=== PATIENT | female | born 1935 | race Caucasian/White ===

== ENCOUNTER 2018-04-21 16:06 | Outpatient (REF) | payer MEDICARE, OTHER, SELFPAY ==
--- NOTE | 2018-04-21 09:30 | SKI_PTH ---
PATIENT: Jerri Velasco LOC: [facility] U#:[id number] AGE/SX: 83/F ROOM: RE04/21/[address]: COLETTE Minaya : 1935 BED: DIS: 04/21/2018 SPEC #: [id number] RECD: 04/21/18 16:46 STATUS: RAÚL HERNÁNDZE #: [id number] CASPER: 04/21/18 09:[address]: Farhan Peck DEPT: Surgical Specimen RECD BY: Laura Hoffman ENTERED: 04/21/18 16:47 SP TYPE: BATOOL RODRIGUEZ DR: Uyen Gerard Tissues: 1 - SKIN BIOPSY(SHAVE/PUNCH) 2 - SKIN BIOPSY(SHAVE/PUNCH) Procedures: SKIN LEVEL 4 Comments: [id number]
== END 2018-04-21 16:07 ==
LOC: LBN 16:06
PROVIDERS: PCP Family Medicine; Visit Provider Physician Assistant
DX: L82.1 Other seborrheic keratosis (principal)
CPT/HCPCS: 88305

== ENCOUNTER 2019-01-12 16:17 | Outpatient (REF) | payer MEDICARE, OTHER, SELFPAY ==
[2019-01-12 20:23] LABS: HCT 41.8 % (36.0-46.0); HGB 13.5 g/dL (12.0-15.5); Mean Corp. HGB Concentration 32.3 g/dL (32.0-36.0); Mean Corpuscular Hemoglobin 29.1 pg (27.0-33.0); Mean Corpuscular Volume 90.1 fL (80-95); Platelet Count 289 x1000/uL (130-400); RBC 4.64 m/cumm (4.00-5.20); RBC Distribution Width 14.1 % (11.7-14.6); White Blood Cell Count 7.98 k/cumm (4.4-10.8)
[2019-01-12 20:56] LABS: Ferritin 210 ng/mL (8-388); TSH (W/Ref FT4) 2.23 uIU/mL (0.358-3.74)
== END 2019-01-12 16:37 ==
LOC: NCHCN 16:17
PROVIDERS: PCP Family Medicine; Visit Provider Family Medicine
DX: L65.9 Nonscarring hair loss, unspecified (principal); I48.91 Unspecified atrial fibrillation
CPT/HCPCS: 85027; 82728; 84443

== ENCOUNTER 2019-02-15 07:34 | Outpatient (CLI) | payer MEDICARE, OTHER, SELFPAY ==
[2019-02-15 08:35] LABS: Abs Immature Grans 0.03 k/cumm (0.0-0.09); Absolute Basophil Count 0.07 k/cumm (0.0-0.2); Absolute Eosinophil Count 0.21 k/cumm (0.0-0.7); Absolute Monocyte Count 0.89 k/cumm (0.11-0.7); Absolute Neutrophil Count 5.15 k/cumm (1.2-6.7); Basophils % 0.8; Eosinophils % 2.5; HCT 41.9 % (36.0-46.0); HGB 13.5 g/dL (12.0-15.5); Immature Grans % 0.4; Mean Corp. HGB Concentration 32.2 g/dL (32.0-36.0); Mean Corpuscular Hemoglobin 29.3 pg (27.0-33.0); Mean Corpuscular Volume 90.9 fL (80-95); Mean Platelet Volume 9.8 fL (8.0-11.0); Monocytes % 10.8; Neutrophils % 62.5; Platelet Count 255 x1000/uL (130-400); RBC 4.61 m/cumm (4.00-5.20); RBC Distribution Width 14.3 % (11.7-14.6); White Blood Cell Count 8.25 k/cumm (4.4-10.8)
[2019-02-15 09:20] LABS: ALT 37 U/L (12-78); AST 37 U/L (15-37); Albumin 3.5 g/dL (3.4-5.0); Alkaline Phosphatase 89 U/L (46-116); Anion Gap 4.9 mmol/L (3-11); BUN 26 mg/dL (7-18); Bilirubin, Total 0.5 mg/dL (0.2-1.0); CO2 33.1 mmol/L (21.0-32.0); CREATININE 1.07 mg/dL (0.55-1.02); Calcium 8.9 mg/dL (8.5-10.1); Chloride 99 mmol/L (98-107); Estimated GFR 49.09 (mL/min/1.73m2); Glucose 90 mg/dL (70-100); Potassium 4.5 mmol/L (3.5-5.1); Sodium 137 mmol/L (136-145); Total Protein 7.8 g/dL (6.4-8.2)
== END 2019-02-15 07:54 ==
PROVIDERS: PCP Family Medicine; Visit Provider Internal Medicine Hematology & Oncology
DX: C64.9 Malignant neoplasm of unspecified kidney, except renal pelvis (principal)
CPT/HCPCS: 36415; 80053; 85025

== ENCOUNTER 2019-03-25 01:18 | Outpatient (CLI) | payer MEDICARE, OTHER, SELFPAY ==
--- NOTE | 2019-03-25 08:07 | DI.RAD_ITS ---
SYMPTOM/DIAGNOSIS: LT ANKLE JOINT PAIN, M25.572, S/P FX AND REPAIR WITH PLATE IN 2013 LEFT ANKLE: Three views. Comparison 07/2014. There are again seen side plates and screws transfixing the healed fractures of the distal left tibia and fibula. The orthopaedic hardware shows no evidence of failure. The bones are intact and normally mineralized. There is a small enthesophyte at the Achilles insertion on to the calcaneus. The soft tissues area otherwise unremarkable. IMPRESSION: No acute abnormality.
== END 2019-03-25 01:38 ==
PROVIDERS: PCP Family Medicine; Visit Provider Family Medicine
DX: M25.572 Pain in left ankle and joints of left foot (principal); Z87.81 Personal history of (healed) traumatic fracture
CPT/HCPCS: 73610

== ENCOUNTER 2019-04-01 04:40 | Outpatient (CLI) | payer MEDICARE, OTHER, SELFPAY ==
[2019-04-01] MEDS: Inhaler, Assist Device 1 EACH MC (10:44)
--- NOTE | 2019-04-01 11:30 | PFT_ITS ---
PULMONARY FUNCTION TEST REPORT DATE OF SERVICE: April 01, 2019 REQUESTING PROVIDER: Uyen Gerard M.D. Spirometry shows mild obstructive airways disease with no significant bronchodilator response. Lung volumes show no evidence of restriction. Diffusion capacity mildly reduced, which is normal when corrected to alveolar volume. Airways resistance normal. IMPRESSION: Mild obstructive airways disease with no significant bronchodilator response. This is associated with mild diffusion defect. Clinical correlation recommended. When this study was compared to previous one from 06/12/15, the patient has a 230 cc's decline in FVC; FEV1 had a 110 cc's decline. Clinical correlation recommended. AMY/magdy D/
== END 2019-04-01 05:00 ==
PROVIDERS: PCP Family Medicine; Visit Provider Family Medicine
DX: J98.8 Other specified respiratory disorders (principal)
CPT/HCPCS: 94060; 94150; 94726; 94729

== ENCOUNTER 2020-02-09 02:46 | Outpatient (CLI) | payer MEDICARE, OTHER, SELFPAY ==
--- NOTE | 2020-02-09 | DI.MRI_ITS ---
EXAM: MR LUMBAR SPINE WO CLINICAL HISTORY: LT SCIATICA, M54.32, LT-SIDED BURNING PAIN LATERAL LEG, HARDWARE IN ANKLE. TECHNIQUE: Multiplanar multisequence MRI was performed. COMPARISON: No exams were available for comparison FINDINGS: MR examination lumbosacral spine was performed according to the usual protocol. No significant bony signal seen. There are moderate hypertrophic degenerative facet changes at L4-5 L5-S1. No bony central canal spinal stenosis. No significant neural foraminal stenosis. The conus medullar is appears intact. There are mild disc bulges at L2-3 and L3-4 with no disc herniation. At L4-5 there is a left lateral disc herniation which may impinge the left L5 nerve root. No other d isc herniation identified. L5-S1 disc shows mild bulge. IMPRESSION: Left lateral disc herniation at L4-5 level which appears to impinge the left L5 nerve root, please co rrelate with neurologic examination. 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 No other significant findings DATA REPOSITORY:
== END 2020-02-09 03:06 ==
PROVIDERS: PCP Family Medicine; Visit Provider Family Medicine
DX: M54.32 Sciatica, left side (principal); M79.605 Pain in left leg; M51.16 Intervertebral disc disorders with radiculopathy, lumbar region; M47.27 Other spondylosis with radiculopathy, lumbosacral region
CPT/HCPCS: 72148

== ENCOUNTER 2020-02-28 11:09 | Outpatient (CLI) | payer MEDICARE, OTHER, SELFPAY ==
--- NOTE | 2020-02-28 10:45 | DI.RAD_ITS ---
EXAM: XR ANKLE LT COMPLETE CLINICAL HISTORY: pain TECHNIQUE: COMPARISON: CR XR ANKLE LT COMPLETE from 03/25/2019 FINDINGS: Three views were obtained and show plate and screw fixation medial lateral malleoli, no gross interva l change in alignment in comparison prior films March 25, 2019. The ankle mortise appears well mainta ined. IMPRESSION:
== END 2020-02-28 11:29 ==
PROVIDERS: PCP Family Medicine; Referring Provider Family Medicine; Visit Provider Orthopaedic Surgery
DX: M25.572 Pain in left ankle and joints of left foot (principal); Z87.81 Personal history of (healed) traumatic fracture; J44.9 Chronic obstructive pulmonary disease, unspecified; I10 Essential (primary) hypertension
CPT/HCPCS: 99201; 99202; 73610

== ENCOUNTER 2020-05-03 11:27 | Outpatient (CLI) | payer MEDICARE, OTHER, SELFPAY ==
--- NOTE | 2020-05-03 06:00 | DI.RAD_ITS ---
EXAM: XR PAIN CLINIC LUMBAR SP 2V CLINICAL HISTORY: Dx: Lumbar Radiculopathy TECHNIQUE: 2D and realtime digital imaging was performed. Fluoroscopy was provided in the OR COMPARISON: No exams were available for comparison FINDINGS: C-arm fluoroscopy was utilized by Dr. Quesada during reported transforaminal epidural steroid injection. Hard copy shows injection adjacent to the neural foramen at what appears to be the L5-S1. Fluoro time, 35 seconds IMPRESSION: RADIATION DOSE DELIVERED: Total DLP
[2020-05-03 11:56] VITALS: BP 149/83; PULSE 65; RESP 16; TEMP 36.5; O2SAT 98
[2020-05-03] MEDS: Dexamethasone Sod. Phos./Pres-Free 10 MG/ML VIAL IJ (12:35)
[2020-05-03] MEDS: Omnipaque 240 MG/ML 50 ML BTL IJ (12:35)
[2020-05-03 12:51] VITALS: BP 144/70; PULSE 64; RESP 19; O2SAT 99
--- NOTE | 2020-05-24 08:48 | PDOC.PAIN ---
Pain Clinic Procedure Note Procedure Note Procedure Note: LUMBAR / SACRAL TRANSFORAMINAL INJECTION DATE OF PROCEDURE: 05/03/2020 TALITA ALCOCER has been referred to the [facility] for a transforaminal nerve root block and steroid injection. COMMENTS: Patient previously seen by Ms. Ortiz in our clinic. I did review this note and the pateint's most recent lumbar spine MRI. DX: Lumbosacral radiculopathy Patient was interviewed and the medical record reviewed. There were no medical, pharmacologic, radiographic or other structural contraindications to attempting fluoroscopically guided transforaminal nerve root block and epidural steroid injection. Risks and expected side effects as well as potential benefit of the procedure were reviewed and voiced concerns addressed. The printed consent form was signed and witnessed. Standard time-out procedure was performed. Patient was placed in the prone position on the fluoroscopy table and automated blood pressure cuff and pulse oximeter applied. Fluoroscopy was utilized to identify the left L5 neural foramen between L5 and S1. A skin candie was made for the needle insertion site. A Chlorhexadine prep was carried out, and sterile drapes were applied. Local anesthesia was achieved in the skin and subcutaneous tissues. A 22 gauge curved tip spinal needle was then inserted, advanced with fluoroscopic guidance into the neural foramen, confirmed on the lateral view. After negative aspiration, 2 ml of Omnipaque 240 was injected confirming position in A/P and lateral views. This showed a good spread of dye transforaminally into the epidural space. There was no vascular update with contrast injection under continuous fluoroscopy and digital substraction. 15 mg of Dexamethasone was injected, followed by 0.5 ml of 1% Xylocaine flush for the nerve root block, as well. There was no unusual discomfort expressed.The needle was withdrawn. The patient tolerated the procedure well. A Band-Aid was applied. Vital signs were stable throughout the procedure and were as recorded in nursing records. If given, dosages of intravenous drugs for anxiolysis and analgesia were documented in nursing records. Follow up plans and appointments were discussed. Post procedure instruction was given as documented in nursing records and patient was discharged in the care of an identified intermodal truck driver. COMMENTS:She did very well with this procedure. Hamzah Quesada DO, MPH Pain Management CC: Uyen Gerard
== END 2020-05-03 11:47 ==
PROVIDERS: PCP Family Medicine; Visit Provider Preventive Medicine Occupational Medicine
DX: M54.17 Radiculopathy, lumbosacral region (principal)
CPT/HCPCS: 64483; 72100; Q9967

== ENCOUNTER 2020-08-06 02:53 | Outpatient (CLI) | payer MEDICARE, OTHER, SELFPAY ==
[2020-08-07 16:50] LABS: COVID-19 RT-PCR UVMMC Result Negative (Negative)
== END 2020-08-06 03:13 ==
PROVIDERS: PCP Family Medicine; Visit Provider Family Medicine
DX: Z11.59 Encounter for screening for other viral diseases (principal); Z01.811 Encounter for preprocedural respiratory examination
CPT/HCPCS: U0003

== ENCOUNTER 2020-08-09 03:42 | Outpatient (CLI) | payer MEDICARE, OTHER, SELFPAY ==
[2020-08-09] MEDS: Albuterol HFA 18 GM 200 PUFF INH IH (10:45)
[2020-08-09] MEDS: Inhaler, Assist Device 1 EACH MC (10:46)
--- NOTE | 2020-08-09 16:07 | W.PFT ---
Date of service: 08/09/20 Time of Service: 10:03 Pulmonary Function Test Result Impression No evidence of obstructive airways disease, no bronchodilator response. When compared to previous studies from 06/12/2015 and 04/01/2019, the patient has a gradual decline in FVC, overall 320 cc, but from 2019 only 90 cc. FEV1 has remained stable from 2019, and had an overall 80 cc decline from 2014 Clinical Correlation therefore is recommended.
== END 2020-08-09 04:02 ==
PROVIDERS: PCP Family Medicine; Visit Provider Internal Medicine
DX: J47.9 Bronchiectasis, uncomplicated (principal); R05 Cough; R06.09 Other forms of dyspnea
CPT/HCPCS: 94060

== ENCOUNTER 2021-05-22 01:48 | Outpatient (CLI) | payer MEDICARE, OTHER, SELFPAY ==
--- NOTE | 2021-05-22 | DI.US_ITS ---
Exam(s) US ABD PELV TRANSVAG NON-OB EXAM: US ABD PELV TRANSVAG NON-OB CLINICAL HISTORY: ABDOMINAL BLOATING, R14.0 TECHNIQUE: Ultrasound abdomen performed using standard protocol. COMPARISON: CT ABD PELVIS WO CONTRAST from 04/25/2015 CT ABD PELVIS WO CONTRAST from 04/25/2015 CT CHEST FOR PULMONARY EMBOLUS from 08/30/2016 FINDINGS: ABDOMINAL AORTA AND IVC: Visualized portions normal caliber. Atherosclerosis of the abdominal aorta. PANCREAS: Normal where visualized. LIVER: Normal. Hepatopedal flow in the Portal Vein. GALLBLADDER: Cholelithiasis. No evidence of wall thickening. No pericholecystic fluid identified. BILIARY SYSTEM: Common bile duct measures < 7 mm. No intrahepatic biliary ductal dilation. RUSSELL'S SIGN: Negative. KIDNEYS: Status post right nephrectomy. Left kidney is unremarkable. No evidence of renal calculi. No evidence of hydronephrosis. No renal mass or cyst identified. SPLEEN: Not enlarged. ASCITES: None seen. UTERUS: Position: Anteverted. Size: 4.8 long by 1 cm AP x 2.4 cm transverse cm Endometrium: 0.2 cm. Normal for patient's menstrual status. Small amount of fluid within the endometr ial canal. Myometrium: Calcifications seen in the fundal myometrium consistent with calcified uterine fibroids. This was present on the CT scan of the abdomen and pelvis from 04/25/2015. Cervix: Unremarkable. OVARIES: Not visualized transabdominally or transvaginally. No left adnexal mass is seen. Right: 2.1 x 1 x 2.4 cm Cyst or mass: 1.1 cm simple cyst. DOPPLER: Color: Uniform flow to right ovary. No hyperemia. Duplex: Normal ovarian arterial waveform is visualized. CUL-DE-SAC: Free fluid: None. Other: None. IMPRESSION: 1. Status post right nephrectomy. 2. Cholelithiasis. No evidence of acute cholecystitis. 3. Calcified uterine fibroids. 4. Small amount of fluid within the endometrial canal. 5. Nonvisualization of the left ovary. No left adnexal mass is seen sonographically. DATA REPOSITORY:
== END 2021-05-22 02:08 ==
PROVIDERS: PCP Family Medicine; Visit Provider Family Medicine
DX: R14.0 Abdominal distension (gaseous) (principal); Z98.890 Other specified postprocedural states; K80.20 Calculus of gallbladder without cholecystitis without obstruction
CPT/HCPCS: 76700; 76830; 76856

== ENCOUNTER 2021-06-07 02:18 | Outpatient (CLI) | payer MEDICARE, OTHER, SELFPAY ==
--- NOTE | 2021-06-07 | DI.MAMMO_ITS ---
Exam(s) MAMMO SCREENING EXAM: MAMMO SCREENING CLINICAL HISTORY: SCREENING,Z12.31 TECHNIQUE: Bilateral full field digital CC and MLO mammographic images were obtained with 3D tomosyn thesis and utilizing computer aided detection (CAD). COMPARISON: Available for comparison. FINDINGS: Masses/Architectural Distortion: None seen. Microcalcifications: No suspicious pleomorphic-type are seen. Skin Thickening/Nipple Retraction: None. IMPRESSION: 1. No significant interval change with no specific features of malignancy noted. 2. Unless there is more urgent need, screening mammography is recommended, as per [place] [employer] guidelines. BI-RADS Category 1 - Negative Breast Density - Category C - Heterogeneously dense Breast density category C or D implies that the patient has dense breast tissue. Dense breast tissue is very common and is not abnormal but dense breast tissue can make it harder to find cancer on a ma mmogram. Also, dense breast tissue may increase their breast cancer risk. This information about the result of the mammogram report was provided to the patient to raise their awareness. Use this report when you speak with the patient about their risks for breast cancer, which includes their family hist ory. At that time, you may recommend for more screening tests (Ultrasound or MRI) as they might be us eful based on their risk. A negative radiographic report should not delay biopsy if a dominant or clinically suspicious mass is present. Up to ten percent of cancers are not identified on mammography. A negative report may reinforce clinical impression. Adenosis and dense breasts may obscure an underlying neoplasm. False positive reports average 6 to 10%. Patient will receive a letter notifying them of these results.
--- NOTE | 2021-06-07 09:20 | DI.DEXA_ITS ---
Exam(s) XR DEXA BONE DENSITY W/WO RADHA EXAM: XR DEXA BONE DENSITY W/WO RADHA CLINICAL HISTORY: OTHER DISORDER OF BONE DENSITY,M85.88 TECHNIQUE: COMPARISON: No exams were available for comparison FINDINGS: Lateral Spine Image: The thoracic spine is difficult to visualize. There does appear to be mild comp ression of the L5 vertebral body. Left hip: Total T-Score: -1.7 Total Z-Score: 0.6 T- and Z-scores: Findings consistent with osteopenia. Lumbar Spine: Total T-Score: -2.5 Total Z-Score: 0.3 T- and Z-scores: Findings consistent with osteoporosis. IMPRESSION: Osteoporosis in the lumbar spine.
== END 2021-06-07 02:38 ==
PROVIDERS: PCP Family Medicine; Visit Provider Family Medicine
DX: M85.88 Other specified disorders of bone density and structure, other site (principal); Z12.31 Encounter for screening mammogram for malignant neoplasm of breast; M81.0 Age-related osteoporosis without current pathological fracture
CPT/HCPCS: 77063; 77067; 77080

== ENCOUNTER 2022-02-25 00:56 | Outpatient (CLI) | payer MEDICARE, OTHER, SELFPAY ==
[2022-02-25 16:14] LABS: Anion Gap 7.2 mmol/L (3-11); BUN 33 mg/dL (7-18); CO2 27.8 mmol/L (21.0-32.0); CREATININE 1.3 mg/dL (0.55-1.02); Calcium 8.8 mg/dL (8.5-10.1); Chloride 96 mmol/L (98-107); Estimated GFR 38.93 (mL/min/1.73m2); Glucose 95 mg/dL (74-106); Potassium 4.1 mmol/L (3.5-5.1); Sodium 131 mmol/L (136-145)
== END 2022-02-25 00:57 | disposition home or self-care (01) ==
LOC: LBO 00:56
PROVIDERS: PCP Family Medicine; Visit Provider Internal Medicine Nephrology
DX: E87.1 Hypo-osmolality and hyponatremia (principal); E87.0 Hyperosmolality and hypernatremia
CPT/HCPCS: 36415; 80048

== ENCOUNTER 2022-03-17 16:35 | Outpatient (CLI) | payer MEDICARE, OTHER, SELFPAY ==
[2022-03-17 13:29] LABS: Anion Gap 5.8 mmol/L (3-11); BUN 25 mg/dL (7-18); CO2 29.2 mmol/L (21.0-32.0); CREATININE 1.1 mg/dL (0.55-1.02); Calcium 8.8 mg/dL (8.5-10.1); Chloride 95 mmol/L (98-107); Estimated GFR 47.21 (mL/min/1.73m2); Glucose 69 mg/dL (74-106); Potassium 4.3 mmol/L (3.5-5.1); Sodium 130 mmol/L (136-145)
--- OUTSIDE RECORDS SUMMARY | 2022-03-17 16:39 | XMS_ITS | Encounter Summary ---
:1935 Author Organization [place] [address] Care Team Providers Name Role Phone Uyen Gerard MD Primary Care Provider Reason for Referral Diagnostic Test (Routine) - Closed Specialty Diagnoses / Procedures Referred By Contact Refer red To Contact Radiology Diagnoses Bronchiectasis without complication Jack Martinez MD [facility] Rad Ct Scan Procedures CT Chest wo Contrast (Generic) [facility] [place] [address] [place] [address] Referral ID Status Reason Start Date Expiration Date Visits V isits Requested Authorized [id number] Closed Specialty 01/07/2021 07/10/2022 1 1 Service Requested Reason for Visit Diagnostic Test (Routine) - Closed Specialty Diagnoses / Procedures Referred By Contact Refer red To Contact Radiology Diagnoses Bronchiectasis without complication Jack Martinez MD [facility] Rad Ct Scan Procedures CT Chest wo Contrast (Generic) [facility] [place] [address] [place] [address] [place] [address] Referral ID Status Reason Start Date Expiration Date Visits V isits Requested Authorized [id number] Closed Specialty 01/07/2021 07/10/2022 1 1 Service Requested Encounter Details Date Type Department Care Team Description 05/08/[address] [place] [facility] [place] Bronchiectasis without [facility] Jack Wesley MD [address] [facility] [place] [place] [facility] [address] PULMONARY [phone] [place] [address] Social History Tobacco Use Types Packs/Day Years Used Date Never Smoker Smokeless Tobacco: Never Used Alcohol Use Standard Drinks/Week Comments Yes 7 (1 standard drink = 0.6 oz pure alcoho l) Sex Assigned at Date Recorded Female 03/31/2021 2:10 PM EDT documented as of this encounter Medications at Time of Discharge Medication Sig Dispensed Refills Start Date End Date omega-3 fatty acids/fish Take by mouth 0 oil (OMEGA 3 FISH OIL ORAL) daily. apixaban (Eliquis) 5 mg Take 5 mg by mouth 0 Tablet 2 times daily. metoprolol succinate XL Take by mouth. 75 0 (Toprol-XL) 50 mg Tablet MG-AM, 50 MG-PM Sustained Release 24 hr fluticasone/umeclidin/vilan Inhale into the 0 ter (TRELEGY ELLIPTA INHL) lungs daily. flecainide (TAMBOCOR) 50 mg Take 50 mg by 0 Tablet mouth 2 times daily. levalbuterol (XOPENEX HFA) Inhale 1-2 puffs 0 45 mcg/actuation HFA into the lungs Aerosol Inhaler every 4 hours as needed. ascorbic acid, vitamin C, Take by mouth 0 (VITAMIN C) 1,000 mg Tablet daily. amLODIPine (NORVASC) 5 mg Take 5 mg by mouth 0 Tablet daily. losartan (COZAAR) 50 mg Take 100 mg by 0 Tablet mouth nightly. Calcium 500 mg Tab Take 1 tablet by 0 mouth 2 times daily. atorvastatin (LIPITOR) 10 Take 10 mg by 0 mg tablet mouth daily. cholecalciferol, Vitamin Take 1,000 Units 0 D3, 25 mcg (1,000 unit) by mouth daily. Capsule SUMAtriptan (Imitrex) 25 mg Take 50 mg by 0 Tablet mouth as needed. DOCUSATE SODIUM (COLACE 0 01/02/2009 ORAL) spironolactone (Aldactone) Take 1 tablet by 90 tablet 5 09/202012/16/2021 25 mg TabletIndications: mouth daily. Essential hypertension documented as of this encounter Plan of Treatment Not on filedocumented as of this encounter Procedures Procedure Name Priority Date/Time Associated Diagnosis Comme nts CT CHEST WO Routine 05/08/2021 10:19 Bronchiectasis without R esults for this CONTRAST (GENERIC) AM EDT complication procedure are in the results section. documented in this encounter Results (ABNORMAL) CT Chest wo Contrast (Generic) (05/08/2021 10:19 AM EDT) Anatomical Region Laterality Modality Chest Computed Tomography Specimen (Source) Anatomical Collection Method Collection Time Re ceived Time Location / / Volume Laterality 05/08/2021 10:35 AM EDT Impressions 05/08/2021 12:44 PM EDT Increased conspicuity of tree-in-bud opacities involving all lobes of both lungs. Associated bronchiectasis seen in the mi ddle lobe and lingula, but also in the right upper lobe. These findings are mos t compatible with infectious/inflammatory small airway dis ease; specifically may consider AMANUEL. UNEXPECTED FINDING of two pleural-based nodular consolidative changes, one at the right lung base and one at the left lung base. These may be related to the underlying infection/inflammation, howev er, follow-up noncontrast, low-dose CT of the chest in 3 months is recommended to exclude any worrisome growth over time. Thank you for letting us participate in the care of this patient. ??If you are a health care provider and have any questi ons regarding this report, please contact the number below. ??For patients who have questions please contact the health healthcare marketer that requested your imaging first. ? Electronically signed by: Delia Richard [facility] ([phone]), at 05/08/2021 12:44 PM Narrative 05/08/2021 12:44 PM EDT EXAMINATION: CT CHEST WO CONTRAST (GENERIC) CLINICAL HISTORY: Bronchiectasis TECHNIQUE: 3 mm thick axial contiguous s ections were obtained through the chest via helical acquisition without intraven ous contrast administration. Thin-section reconstructions as well as coronal and sagittal reformatted images were generated. COMPARISON: 04/25/2015 FINDINGS: Pulmonary parenchyma and airways: Increa sed tree-in-bud opacities in the bilateral lungs, now involving all lobes of both lungs. Mild bronchiectasis in the right upper lobe as well as primaril y in the middle lobe and lingula. Focal pleural-based 20 mm nodularity on the right and 17 mm nodularity on the left (series 3, image 78 and 89). Pleura: No effusion. Lymph nodes: No lymphadenopathy. Heart, pericardium, and great vessels: M itral annular calcification. Mild coronary artery atherosclerotic calcific ation. Size of the heart is normal. Other mediastinal structures: No signifi cant findings. Lower neck: No significant findings. Upper abdomen: Cholelithiasis. Right kid lencho is absent. Body wall soft tissues: No significant f indings. Skeletal structures: Scoliotic alignment . No acute pathology. Resulting Agency Comment Unexpected Finding Jack Martinez MD IMG CT ORDERABLES documented in this encounter Visit Diagnoses Diagnosis Bronchiectasis without complication Bronchiectasis without acute exacerbatio n documented in this encounter Care Teams Search Engine Optimization Consultant Relationship Specialty Start Date End Date Uyen Gerard MD PCP - General 07/01/13 [address] [place] [address] documented as of this encounter
--- OUTSIDE RECORDS SUMMARY | 2022-03-17 16:39 | XMS_ITS | Encounter Summary ---
:1935 [facility] Address [facility] [phone] [place] [address] Care Team Providers Name Role Phone Unavailable Primary Care Provider Unavailable Encounter Details Date Type Department Care Team Description 01/29/2016 [facility] Oncology and Hematology [address] [place] [address] [address] [place] [address] Social History Tobacco Use Types Packs/Day Years Used Date Never Assessed Sex Assigned at Date Recorded Not on file documented as of this encounter Last Filed Vital Signs Vital Sign Reading Time Taken Comments Blood Pressure 140/78 01/29/2016 3:19 PM EDT Pulse - - Temperature - - Respiratory Rate - - Oxygen Saturation - - Inhaled Oxygen Concentration - - Weight 58.5 kg (129 lb) 01/29/2016 3:19 PM EDT Height 160 cm (5' 3) 01/29/2016 3:19 PM EDT Body Mass Index 22.85 01/29/2016 3:19 PM EDT documented in this encounter Progress Notes Mirta Sorenson MD - 01/29/2016 3:19 PM EDT [facility] Hematology / Oncology TALITA VELASCO was seen today for follow up. 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 Treatment: Observation ECOG Performance Status: 0/4 Patient receiving Oral Antineoplastic Therapy? No Advanced Directive? not discussed History of Present Illness: Patient is 81 years old; she is accompanied by her ;Since her last visit, she has had no new diagnoses or new surgical procedures;however, Overall blood pressure control has been better this year--on amlodipine and Norvasc;Fatigue and functionality are unchanged from one year ago; Previously she had a left ankle fracture which needed internal fixation in July 2013 while traveling from [place] to [place]; She was previously seen by Dr. Ming Carter in pulmonary medicine and has been diagnosed to havemild to moderate COPD for which she is using Spireva with good control of symptoms;Functionality hasimproved; No family member has been diagnosed with cancer;She continues to feel well with no other symptoms.She and her have now permanently moved to [place]. She now has a primary care physician at [place], [place].She is also planning to move her pulmonary care to [place]; . Oncologic/Hematologic History: Patient was diagnosed in September of 2004 with right-sided renal cancer. She presented with abdominaldiscomfort. She initially had angioinfarction in August of 2004 because of the large size of the tumor. Then she had a surgical resection in September of 2004 for a 16 cm primary, pT 2, pN O. chromophobe type. CT scans of the chest and abdomen done in March of 2005 at the [facility] revealed a small 3 mm subpleural nodule in the superior segment of the left lower lobe which has been stable since then. She also had a less than 2 mm-sized punctate nodules in the right lower lobe; there was no endobronchial lesion. There was also a 2 mm hypodensity in the medial segment of the liver, too small to characterize; urinary bladder was normal. There was multiple uterine calcifications, possibly fibroids. The were no adnexal masses. She was being monitored with [address] scans with stability of these pulmonary and hepatic lesions;repeat CT scan revealed increased confluence of pulmonary lesions and therefore a pulmonary consult was requested; evaluation resulted in a diagnosis of COPD and not metastatic cancer; she is being observed for cancer. Past Medical History: Hypertension - recent increase COPD Renal cancer Past Medical History: Surgical history: Nephrectomy on the right side in 2004 preceded by angio infarction Extended Family Hx Father at the age of 78; Because there was a separation of her parents, she has no medical information on paternal siblings or Cousins;paternal grandfather at 70 of pneumonia; paternal grandmother in her 60s of a myocardial infarction; one paternal uncle -details not known to patient; Mother at 94 of natural causes; maternal grandfather the first world war. Maternal grandmother of kidney problems. One maternal aunt in her 70s of unclear cause; one maternal aunt at 16 of sepsis after a knee infection. Patient is an only child; She has 3 daughters-ages 56, 54 and 50 and 7 grandchildren. 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 She has no tinnitus, deafness or vertigo; she denies any problems swallowing. She has no angina or palpitations, dizziness or diaphoresis; she has no shortness of breath at rest on exertion; stable mild shortness of breath with climbing inclines is stablle; she has noted a mild cough without sputum production-- unchanged; she has no hemoptysis. She has no chronic nausea or vomiting or hematemesis; she has no abdominal pain no bloating; she has no alternating diarrhea or constipation, bloody or tarry stools. She has no history of jaundice. She denies any problems passing urine, frequency or blood in the urine. She has no alternating diarrhea or constipation, bloody or tarry stools. She has no swelling of the extremities; she has no rash or skin changes; she has no bleeding or bruising tendency; she has nojoint swelling. She has no fever chills or rigor; she has no loss of weight or appetite; she is doing well emotionally.Fatigue Is present but unchanged and not limiting functionality;She has a left ankle swelling that is now more permanent since the ankle fracture; Patient had planned a trip to [facility] in 2014 --I did not enquire; Patient has had a screening mammogram and breast exam in the past 12 months; Current Medications: IMITREX 50 MG TABS (SUMATRIPTAN SUCCINATE) 1 tab by mouth once daily as needed LIPITOR 10 MG TABS (ATORVASTATIN CALCIUM) 1 tab by mouth daily COD LIVER OIL CAPS (COD LIVER OIL) 1 tab by mouth once daily * COLACE 1 tab daily CALCIUM ASCORBATE 500 MG TABS (CALCIUM ASCORBATE) 2 tabs daily MECLIZINE HCL TABS (MECLIZINE HCL TABS) 1 tab as needed for vertigo VITAMIN D3 1000 UNIT TABS (CHOLECALCIFEROL) 1-2 tabs daily by mouth during winter months * SPIRIVA HANDIHALER CAPS 18MCG 1 cap daily * INHALER as needed * COMPRESSION STOCKINGS Please provide one pair of thigh-high compression tilqorory-38-94 mm mercury AMLODIPINE BESYLATE 10 MG TABS (AMLODIPINE BESYLATE) 1 tab by mouth daily LOSARTAN POTASSIUM 50 MG TABS (LOSARTAN POTASSIUM) once daily VITAMIN C CAPS (ASCORBIC ACID CAPS) 1000u once daily Vital Signs: Patient Profile: 81 Years Old Female Height: 63 inches (160.02 cm) Weight: 129 pounds (58.64 kg) BMI: 22.93 BSA: 1.61 O2 Sat: 95 % Temp: 95.6 degrees F (35.33 degrees C) tympanic Pulse rate: 87 / minute Resp: 16 per minute BP sittin / 78 (right arm) Cuff size: regular Patient in pain? no Vitals Taken By: Sly Burrows MA, January 29, 2016 3:25 PM Tobacco use: never smoker Rooming Notes Medications and allergies were reviewed with the patient. The patient's weight at the last visit (01/30/2015) was 141.6 pounds. Today's weight is 129 pounds. This is a change of -12.60 pounds in 364 days. Signed by: Sly Burrows MA, January 29, 2016 3:25 PM Physical Exam General: BMI: 22.93-12.6 pound weight loss Head: Patient has no scalp abnormalities. Eyes: She has no icterus. Ears: . Nose: . Mouth: She has no oropharyngeal lesions, erythema, exudate or masses. Dental hygiene is good; Neck: There is no cervical, supraclavicular or submandibular adenopathy. Chest Wall/Back: . Breasts: . Lungs: Lungs are clear to auscultation and percussion. Heart: Cardiac exam reveals a normal rhythm with no murmur, rub or gallop. Abdomen: Abdomen is soft, nontender with no rebound or guarding. Liver and spleen are not palpable. There are no abdominal masses. Bowel sounds are present normally. Rectal: . Genitalia: . MSK: . Pulses: Peripheral pulses are well felt. She has left ankle edema; no edema on the right side; no clubbing. Back: . Extremities: . Neurologic: Neurological exam not done Skin: There are no ecchymoses, petechiae or purpuric lesions. Skin turgor is normal. There are no abnormal rashes. Patient has a 6 mm raised mole on the left shoulder and a 1 cm flat mole on the dorsumof the left foot;Unchanged; Cervical Nodes: . Inguinal Nodes: There is no inguinal adenopathy. Axillary Nodes: I appreciate no significant axillary adenopathy bilaterally; Lymph Nodes: . Psych: . Other: . CBC/with Diff & CBCO WBC: 5.3 X10 3/UL - 01/08/2016 RBC: 4.77 X10 6/UL - 01/08/2016 HGB: 13.8 - 01/08/2016 HCT: 42.8 - 01/08/2016 MCV: 89.7 - 01/08/2016 MCH: 28.9 - 01/08/2016 MCHC RBC: 32.2 - 01/08/2016 RDW: 13.2 - 01/08/2016 HDW: 2.4 - 12/13/2010 Platelets: 223 X10 3/UL - 01/08/2016 MPV: 10.2 - 01/08/2016 NEUT %: 57 - 01/08/2016 LYMPHS %: - 01/08/2016 MONOCYTE %: 10 - 01/08/2016 EOSINOPHIL %: 3 - 01/08/2016 BASOPHIL %: 2 - 01/08/2016 SARAH %: 4 - 12/13/2010 Comprehensive/Basic Metabolic Panel, Electrolyte & Liver Function Panel Labs Sodium: 138 MEQ/L - 01/08/2016 Potassium: 4.4 MEQ/L - 01/08/2016 Chloride: 101 MEQ/L - 01/08/2016 Carbon Dioxide: 30 MEQ/L - 01/08/2016 Anion Gap: 7.0 mEq/L - 01/08/2016 Glucose: 82 - 01/08/2016 BUN: 20 - 01/08/2016 Creatinine: 0.92 - 01/08/2016 BUN/Creatinine: 21.7 - 01/08/2016 Calcium: 8.6 - 01/08/2016 Albumin: 3.9 - 01/08/2016 Alkaline Phosphatase: - AST: 27 - 01/08/2016 ALT: 29 01/08/2016 Total Bilirubin: 0.5 - 01/08/2016 Direct Bilirubin: 0.1 - 08/07/2011 Total Protein: 8.2 - 01/08/2016 Globulin: 4.3 - 01/08/2016 A/G Ratio: 0.91 - 01/08/2016 Complete Medication List: IMITREX 50 MG TABS (SUMATRIPTAN SUCCINATE) 1 tab by mouth once daily as needed LIPITOR 10 MG TABS (ATORVASTATIN CALCIUM) 1 tab by mouth daily COD LIVER OIL CAPS (COD LIVER OIL) 1 tab by mouth once daily * COLACE 1 tab daily CALCIUM ASCORBATE 500 MG TABS (CALCIUM ASCORBATE) 2 tabs daily MECLIZINE HCL TABS (MECLIZINE HCL TABS) 1 tab as needed for vertigo VITAMIN D3 1000 UNIT TABS (CHOLECALCIFEROL) 1-2 tabs daily by mouth during winter months * SPIRIVA HANDIHALER CAPS 18MCG 1 cap daily * INHALER as needed * COMPRESSION STOCKINGS Please provide one pair of thigh-high compression ecwfaopal-91-09 mm mercury AMLODIPINE BESYLATE 10 MG TABS (AMLODIPINE BESYLATE) 1 tab by mouth daily LOSARTAN POTASSIUM 50 MG TABS (LOSARTAN POTASSIUM) once daily VITAMIN C CAPS (ASCORBIC ACID CAPS) 1000u once daily Plan: Renal cancer stage II: Patient has no evidence of recurrence; she is doing well; Patient has passedthe 10 year candie since diagnosis; she has a normal performance status-ECOG 0/4; she will continue with annual ultrasound of the kidney; she returns for followup in 12 months at her request. I recommended no further reason for annual CT scans, unless she is symptomatic; Lung nodules-patient has had a complete evaluation by Dr. Carter who recommended no further CT scans as the lesions have been stable since 2004. Followup with Dr. Carter. She is aware that she can call me with any questions regarding kidney cancer or new symptoms. The patient is moving to [place], I again suggested that she switch her oncologic care to the [facility] at [facility].She will think about it. This recommendation still stands. I also previously recommended she review the moles with her primary care physician and consider biopsy or removal of both, especially the one on the shoulder; In view of the hypertension and the presence of a solitary kidney, With sudden worsening of blood pressure control, Patient follows up with her PCP; As patient receives all her primary care in [place]-primary care issues like screening, vaccination and health maintenance issues are deferred to her PCP; CC: Uyen Gerard MD documented in this encounter Plan of Treatment Upcoming Encounters Date Type Specialty Care Team Description 03/26/2022 Eye Care Visit Ophthalmology Gladys England MD [address] [place] [phone] (Wo rk) documented as of this encounter Visit Diagnoses Not on filedocumented in this encounter
--- OUTSIDE RECORDS SUMMARY | 2022-03-17 16:39 | XMS_ITS | Encounter Summary ---
:1935 Author Organization [facility] Address [facility] [place] [address] Care Team Providers Name Role Phone Uyen Gerard MD Primary Care Provider Encounter Details Date Type Department Care Team Description 05/29/2021 Office Visit Pulmonology at [facility] Carmelina Gonzalez MD Dyspnea, unspecified type; [facility] [place] of both lungs present on chest [place] [address] PULMONARY MEDICINE [phone] [place] [id number] Social History Tobacco Use Types Packs/Day Years Used Date Never Smoker Smokeless Tobacco: Never Used Alcohol Use Standard Drinks/Week Comments Yes 7 (1 standard drink = 0.6 oz pure alcoho l) Sex Assigned at Date Recorded Female 03/31/2021 2:10 PM EDT documented as of this encounter Progress Notes Carmelina Gonzalez MD - 05/29/2021 4:00 PM EDT Images from the original note were not included. [facility] Section of Pulmonary and Critical Care Medicine Outpatient Follow Up Date of Encounter: 05/29/2021 History of Present Illness: Jerri Velasco is a pleasant 86 year old woman who has been experiencing progressive dyspnea with cough for the past several years. She was diagnosed with ILD with tractionbronchiectasis and has been on Trelegy with Xopenex but has noticed progressive exertional dyspnea. She used to be able to walk up hill and climb stairs easily but she is now much more easily winded when walking up an incline. She notices dyspnea while housecleaning but is able to perform her ADLs without dyspnea. She denies fevers or chills but has occasional night sweats. She has not lost weight. She feels much more tired overall. She has an intermittent nonproductive cough as well but cough is not the most prominent symptom. She does not feel that the inhaled medications help significantly. She has a significant mold exposure at work due to a pipe leak and was also exposed to asbestos in her building. She denies joint swelling or redness, skin rash, or GERD. She had a CT scan earlier This month that showed diffuse tree in bud opacities as well as interstitial thickening. She and her return today for PFTs and a discussion of next steps. Current Medications: Current Outpatient Medications on File Prior to Visit Medication Sig Dispense Refill ??? omega-3 fatty acids/fish oil (OMEGA 3 FISH OIL ORAL) Take by mouth daily. ??? apixaban (Eliquis) 5 mg Tablet Take 5 mg by mouth 2 times daily. ??? metoprolol succinate XL (Toprol-XL) 50 mg Tablet Sustained Release 24 hr Take by mouth. 75 MG-AM, 50 MG-PM ??? fluticasone/umeclidin/vilanter (TRELEGY ELLIPTA INHL) Inhale into the lungs daily. ??? spironolactone (Aldactone) 25 mg Tablet Take 1 tablet by mouth daily. 90 tablet 5 ??? flecainide (TAMBOCOR) 50 mg Tablet Take 50 mg by mouth 2 times daily. ??? levalbuterol (XOPENEX HFA) 45 mcg/actuation HFA Aerosol Inhaler Inhale 1-2 puffs into the lungs every 4 hours as needed. ??? ascorbic acid, vitamin C, (VITAMIN C) 1,000 mg Tablet Take by mouth daily. ??? amLODIPine (NORVASC) 5 mg Tablet Take 5 mg by mouth daily. ??? losartan (COZAAR) 50 mg Tablet Take 100 mg by mouth nightly. ??? Calcium 500 mg Tab Take 1 tablet by mouth 2 times daily. ??? atorvastatin (LIPITOR) 10 mg tablet Take 10 mg by mouth daily. ??? Cholecalciferol, Vitamin D3, (VITAMIN D) 1,000 unit Cap Take 2,000 Units by mouth daily. ??? SUMAtriptan (IMITREX) 25 mg tablet Take 50 mg by mouth as needed. ??? DOCUSATE SODIUM (COLACE ORAL) No current facility-administered medications on file prior to visit. Adverse Drug Reactions: Allergies Allergen Reactions ??? Codeine Phosphate Review of Systems: Review of Systems Constitutional: Positive for malaise/fatigue and night sweats. Negative for fever, weight gain and weight loss. HENT: Negative for congestion and sore throat. Eyes: Negative for blurred vision. Cardiovascular: Positive for dyspnea on exertion and palpitations. Negative for chest pain and leg swelling. Respiratory: Positive for cough and shortness of breath. Negative for hemoptysis, sputum production and wheezing. Endocrine: Negative for cold intolerance and heat intolerance. Hematologic/Lymphatic: Negative for adenopathy. Skin: Positive for dry skin. Musculoskeletal: Positive for arthritis. Negative for joint swelling and myalgias. Gastrointestinal: Negative for abdominal pain. Neurological: Positive for light-headedness. Negative for headaches. Psychiatric/Behavioral: Negative for depression. The patient is not nervous/anxious. Allergic/Immunologic: Negative for environmental allergies. Physical Examination: General: Pleasant, no respiratory distress with conversation HEENT: No sinus tenderness Neck: No adenopathy CV: Regular, no murmur Chest: Dry crackles bilaterally, more predominant in the lower lobes Ext: No clubbing or edema Skin: No rashes Diagnostic Testing: IMAGING: I personally reviewed her CT scan from earlier this month which showed some interstitial thickening with more diffuse tree in bud opacities. There were two moderate sized pleural based noduleswhich are new. SPIROMETRY: I personally reviewed her PFTs from today which showed mild airflow obstruction with airtrapping and a mildly reduced DLCO. PFT Results Office Visit from 03/31/2014 in Pulmonology at [facility] Office Visit from 09/16/2013 in Pulmonology at [facility] Office Visit from 03/11/2013 in Pulmonology at [facility] PFT Results Peak Flow 300 L/min 275 L/min 300 L/min Additional PFT Data (if needed) CULTURES: PERTINENT LABS: Metabolic Parameters Lab Results Component Value Date NA 130 (L) 08/15/2019 K 4.8 08/15/2019 CL 91 (L) 08/15/2019 CO2 30 08/15/2019 ANIONGAP 9 08/15/2019 BUN 25 (H) 08/15/2019 CREATININE 1.09 08/15/2019 GLUCOSE 68 08/15/2019 CALCIUM 10.0 08/15/2019 MAGNESIUM 0.85 02/24/2019 PHOS 3.4 05/29/2015 Hematologic Parameters Lab Results Component Value Date WBC 9.3 08/15/2019 NEUTOPHILPCT 66.6 08/15/2019 IMMGRANPCT 0.60 08/15/2019 LYMPHOPCT 17.9 08/15/2019 MONOPCT 12.4 08/15/2019 BASOPCT 1.0 08/15/2019 EOSPCT 1.5 08/15/2019 HGB 13.7 08/15/2019 HCT 41.2 08/15/2019 RBC 4.64 08/15/2019 MCV 88.8 08/15/2019 MCHC 33.3 08/15/2019 RDWSD 42.2 08/15/2019 PLATELET 277 08/15/2019 LFT and Associated Parameters Lab Results Component Value Date AST 29 07/01/2013 ALT 22 07/01/2013 ALKPHOS 65 07/01/2013 BILITOT 0.4 07/01/2013 BILIDIR 0.1 07/01/2013 ALBUMIN 3.9 02/24/2019 Diabetes Laboratory Tests Lab Results Component Value Date MICROALBUR <3.0 02/24/2019 Impression / Plan of Care: Jerri Velacso is a delightful 86 year old woman with progressive exertional dyspnea. Her CT scan shows progression on an inflammatory process compared to past imaging. PFTshow airflow obstruction with air trapping. Although the etiology is not clear, the imaging abnormalities appear to be secondary to an infectious or inflammatory process. Potential etiologies include atypical infections such as MAC, fungal infection, or autoimmune process. Given her imaging, we will plan to proceed with a bronchoscopy with BAL to assess for infectious or inflammatory etiologies. CARMELINA GONZALEZ MD 05/29/2021 3:49 PM documented in this encounter Plan of Treatment Not on filedocumented as of this encounter Visit Diagnoses Diagnosis Dyspnea, unspecified type Opacities of both lungs present on chest x-ray documented in this encounter Care Teams Supervisor [employer] Processing Relationship Specialty Start Date End Date Uyen Gerard MD PCP - General 07/01/13 [address] [place] [address] documented as of this encounter
--- OUTSIDE RECORDS SUMMARY | 2022-03-17 16:39 | XMS_ITS | Encounter Summary ---
:1935 Author Organization [facility] [place] [address] Care Team Providers Name Role Phone Uyen Gerard MD Primary Care Provider Encounter Details Date Type Department Care Team Description 02/14/2022 Laboratory Appointment Lab 3L [facility] Chronic kidney disease, unspecified CKD stage; [facility] [place] [address] Social History Tobacco Use Types Packs/Day Years Used Date Never Smoker Smokeless Tobacco: Never Used Alcohol Use Standard Drinks/Week Comments Yes 7 (1 standard drink = 0.6 oz pure alcoho l) Sex Assigned at Date Recorded Female 03/31/2021 2:10 PM EDT documented as of this encounter Plan of Treatment Not on filedocumented as of this encounter Procedures Procedure Name Priority Date/Time Associated Diagnosis Comme nts HC PARATHYROID STAT 02/14/2022 8:55 AM Chronic kidney Resul ts for this HORMONE(PTH INTACT EDT disease, unspecified p rocedure are in CKD stage the results section. SCAN, PERIPHERAL STAT 02/14/2022 8:55 AM Resul ts for this BLOOD EDT procedure are i n the results section. HEMOGRAM STAT 02/14/2022 8:55 AM Chronic kidney Results for this EDT disease, unspecified procedu re are in CKD stage the results section. DIFFERENTIAL, STAT 02/14/2022 8:55 AM Chronic kidney Result s for this AUTOMATED EDT disease, unspecified procedu re are in CKD stage the results section. HC VITAMIN D TOTAL-25 STAT 02/14/2022 8:55 AM Vitamin D def iciency Results for this HYDROXY EDT procedure are i n the results section. HC CBC,PLT & AUTO STAT 02/14/2022 8:55 AM Chronic kidney DIFF EDT disease, unspecified CKD stage HC PHOSPHORUS, SERUM STAT 02/14/2022 8:55 AM Chronic kidney Results for this EDT disease, unspecified procedu re are in CKD stage the results section. HC VENIPUNCTURE STAT 02/14/2022 8:55 AM Chronic kidney Resu lts for this EDT disease, unspecified procedu re are in CKD stage the results section. HC ALBUMIN, SERUM STAT 02/14/2022 8:55 AM Chronic kidney Re sults for this EDT disease, unspecified procedu re are in CKD stage the results section. BASIC METABOLIC PANEL STAT 02/14/2022 8:55 AM Chronic kidne y Results for this (NON-FASTING) EDT disease, unspecified proced ure are in CKD stage the results section. documented in this encounter Results Scan, Peripheral Blood (02/14/2022 8:55 AM EDT) Flickme Method Time Signature Plat Estimate Increased [facility] RBC Morphology Abnormal [facility] Stippled RBCs Present >1/HPF [facility] Specimen Anatomical Collection Method Collection Time Receive d Time (Source) Location / / Volume Laterality Blood 02/14/2022 8:55 AM 9:03 EDT AM EDT Resulting Agency Comment Spec In Lab Manuel Ricks MD HEMATOLOGY ORDERABLES Performing Organization Address City/State/[place] [address] (ABNORMAL) Differential, Automated (02/14/2022 8:55 AM EDT) Flickme Method Time Signature Neutrophils % 74.1 % [facility] Neutr Abs (ANC) 10.66 (H) 1.70 - [facility] 6.[address] [facility] x10(3)/[facility] LABORATORY Lymphocytes % 8.5 % [facility] Lymphocytes Abs 1.2 0.9 - 3.[address] [facility] x10(3)/[facility] LABORATORY Monocytes % 11.7 % [facility] Monocyte Abs 1.7 (H) 0.3 - 0.[address] [facility] x10(3)/[facility] LABORATORY Eosinophils % 0.0 % [facility] Eosinophils Abs 0.0 0.0 - 0.[address] [facility] x10(3)/[facility] LABORATORY Basophils % 0.1 % [facility] Basophils Abs 0.0 0.0 - 0.[address] [facility] x10(3)/[facility] LABORATORY Immature Gran % 5.60 % [facility] Comment: Immature granulocytes(IG's)percentage an d absolute count will include metamyelocytes, myelocytes, and promyelo cytes. Blood smears from CBCs yielding IG's will be scanned manually for concor dance. If this scan disagrees with the automated IG or if promyelocytes are not ed, a manual differential will be performed. Miriam Gran Abs 0.80 (H) 0.00 - 0.04 x10(3)/[facility] LABORATORY Specimen Anatomical Collection Method Collection Time Receive d Time (Source) Location / / Volume Laterality Blood 02/14/2022 8:55 AM 9:03 EDT AM EDT Resulting Agency Comment Spec In Lab Manuel Ricks MD HEMATOLOGY ORDERABLES Performing Organization Address City/State/[place] [address] (ABNORMAL) Hemogram (02/14/2022 8:55 AM EDT) Analysis Performed At Patho logist Time Signature WBC 14.4 (H) 4.0 - 9.[address] [facility] x10(3)/[facility] LABORATORY RBC 4.88 4.00 - [facility] 5.[address] [facility] x10(6)/[facility] LABORATORY Hemoglobin 14.6 11.7 - [facility] 15.5 g/dL [facility] Hematocrit 43.1 35.7 - [facility] 45.8 % [facility] MCV 88.3 82.6 - [facility] 94.4 [facility] LABORATORY MCH 29.9 27.1 - JUAN MANUEL AMANDA 32.0 pg [facility] MCHC 33.9 31.7 - [facility] 35.0 g/dL [facility] Platelets 400 (H) 145 - [address] [facility] x10(3)/[facility] LABORATORY RDWSD 41.4 37.0 - [facility] AMANDA 46.0 [facility] LABORATORY RDWCV 12.8 11.5 - [facility] AMANDA 14.1 % [facility] MPV 8.4 7.6 - 12.9 [facility] LABORATORY nRBC % Auto 0.0 % [facility] nRBC Abs Auto 0.000 0.000 - [facility] 0.[address] [facility] x10(3)/[facility] LABORATORY Specimen Anatomical Collection Method Collection Time Receive d Time (Source) Location / / Volume Laterality Blood 02/14/2022 8:55 AM 9:03 EDT AM EDT Resulting Agency Comment Spec In Lab Manuel Ricks MD HEMATOLOGY ORDERABLES Performing Organization Address City/State/[place] [address] (ABNORMAL) Basic Metabolic Panel (non-fasting) (02/14/2022 8:55 AM EDT) P athologist Signature Glucose Lvl 94 65 - [address] [facility] mg/dL [facility] Comment: Diabetes: >=200 mg/dL plus symp toms BUN 29 (H) 8 - 18 mg/dL [facility] Creatinine 0.98 0.70 - 1.20 mg/dL [facility] Sodium 127 (L) 135 - 145 mmol/L [facility] Potassium 4.8 3.5 - 5.0 mmol/L [facility] Comment: Please note: ??Patients with WBC >100,00 0 may have falsely elevated Potassium levels. ??For accurate Potassium quantif ication in these patients send serum separator tube (gold top) for subsequent determinations. ??Contact the Clinical Chemistry Laboratory if there are any qu estions. Chloride 89 (L) 98 - 107 mmol/L [facility] CO2 30 22 - 31 mmol/L [facility] Anion Gap 8 5 - 15 mmol/L [facility] Calcium 9.6 8.5 - 10.5 mg/dL [facility] Estimated GFR 53 (L) >=60 mL/min/1.73 m?? [facility] Comment: This patient? s estimated glomerular filtration rate (eGFR) is between 53 mL/min/1.73 m2 (patients with less muscl e mass) and 61 mL/min/1.73 m2 (patients with more muscle mass) as determined by the CKD-EPI equation. Assessment of eGFR is not appropriate when creatinine concentrations are rapidly changing. For clinical decisions where creatinine clearance will affect therapy, a 24-hour urine creatinine clearance may b e advised. Assignment of CKD stage 1 - 5 for patien ts with an eGFR near the transition point between stages may be based on cli nical assessment of muscle mass and symptoms in addition to eGFR. Specimen Anatomical Collection Method Collection Time Receive d Time (Source) Location / / Volume Laterality Blood 02/14/2022 8:55 AM 2 9:03 EDT AM EDT Resulting Agency Comment Spec In Lab Manuel Ricks MD CHEMISTRY ORDERABLES Performing Organization Address City/[facility]/ZIP [facility] e Number [address] Phosphorus (02/14/2022 8:55 AM EDT) P athologist Signature Phosphorus 2.9 2.5 - 4.[address] [facility] mg/dL [facility] Specimen Anatomical Collection Method Collection Time Receive d Time (Source) Location / / Volume Laterality Blood 02/14/2022 8:55 AM 2 9:03 EDT AM EDT Resulting Agency Comment Spec In Lab Manuel Ricks MD CHEMISTRY ORDERABLES Performing Organization Address City/[facility] Phon e Number [address] Albumin Level (02/14/2022 8:55 AM EDT) athologist Signature Albumin 4.2 3.2 - 5.2 [facility] MANUEL LEZ[facility] g/dL [facility] Specimen Anatomical Collection Method Collection Time Receive d Time (Source) Location / / Volume Laterality Blood 02/14/2022 8:55 AM 2 9:03 EDT AM EDT Resulting Agency Comment Spec In Lab Manuel Ricks MD CHEMISTRY ORDERABLES Performing Organization Address City/[facility]/ZIP Code Phon e Number [address] PTH (02/14/2022 8:55 AM EDT) athologist Signature PTH 63 15 - 65 [facility] AMANDA pg/mL [facility] Specimen Anatomical Collection Method Collection Time Receive d Time (Source) Location / / Volume Laterality Blood 02/14/2022 8:55 AM 2 9:03 EDT AM EDT Resulting Agency Comment Spec In Lab Manuel Ricks MD CHEMISTRY ORDERABLES Performing Organization Address City/[facility]/[place] [address] Vitamin D, 25-Hydroxy (02/14/2022 8:55 AM EDT) Patholo gist Method Time Signature 25-OH Vit D 84 21 - 100 [facility] AMANDA Total ng/mL [facility] 25-OH Vit D Sufficient [facility] LABORATORY Specimen Anatomical Collection Method Collection Time Receive d Time (Source) Location / / Volume Laterality Blood 02/14/2022 8:55 AM 2 9:03 EDT AM EDT Resulting Agency Comment Spec In Lab Manuel Ricks MD CHEMISTRY ORDERABLES Performing Organization Address City/[facility]/ZIP Code Phon e Number [address] Magnesium (02/14/2022 8:55 AM EDT) P athologist Signature Magnesium 0.94 0.69 - 1.07 [facility] AMANDA mmol/L [facility] Specimen Anatomical Collection Method Collection Time Receive d Time (Source) Location / / Volume Laterality Blood 02/14/2022 8:55 AM 2 9:03 EDT AM EDT Resulting Agency Comment Spec In Lab Manuel Ricks MD CHEMISTRY ORDERABLES Performing Organization Address City/State/ZIP Code Phon e Number [place] [phone] documented in this encounter Visit Diagnoses Diagnosis Chronic kidney disease, unspecified CKD stage Vitamin D deficiency Unspecified vitamin D deficiency documented in this encounter Care Teams Triage Technician Relationship Specialty Start Date End Date Uyen Gerard MD PCP - General 07/01/13 [address] [place] [address] documented as of this encounter
--- OUTSIDE RECORDS SUMMARY | 2022-03-17 16:39 | XMS_ITS | Encounter Summary ---
:1935 [facility] Address [facility] [phone] [place] [address] Care Team Providers Name Role Phone Unavailable Primary Care Provider Unavailable Encounter Details Date Type Department Care Team Description 03/09/2019 [facility] [address] [place] [address] [address] [place] [address] Social History Tobacco Use Types Packs/Day Years Used Date Never Assessed Sex Assigned at Date Recorded Not on file documented as of this encounter Last Filed Vital Signs Vital Sign Reading Time Taken Comments Blood Pressure 144/84 03/09/2019 11:10 AM EDT Pulse - - Temperature - - Respiratory Rate - - Oxygen Saturation - - Inhaled Oxygen Concentration - - Weight 62.3 kg (137 lb 6.4 oz) 03/09/2019 11:10 AM EDT Height 160 cm (5' 3) 03/09/2019 11:10 AM EDT Body Mass Index 24.34 03/09/2019 11:10 AM EDT documented in this encounter Progress Notes Mirta Sorenson MD - 03/09/2019 11:10 AM EDT [facility] TALITA VELASCO was seen today for follow up. Chief Complaint: Mrs. 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 Treatment: Observation ECOG Performance Status: 0/4 Patient receiving Oral Antineoplastic Therapy? No Advanced Directive? not discussed History of Present Illness: Patient is 84 years old; she is accompanied by her ;Since her last visit, [place] requested; No family member has been diagnosed with any form of cancer in the past year; she is more limited in her function compared to previously- mostly shortness of breath with exertion; In August 2016, she was diagnosed with atrial fibrillation and is currently on Eliquis; she continues to have shortness of breath with inclines; She had a wonderful cruise in [place] to [place] in 2016; She went to to [facility] in 2014. Previously she had a left ankle fracture which needed internal fixation in July 2013 while traveling from [place] to [place]; She was previously seen by Dr. 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 She now has a primary care and pulmonary physician at [place], [place] . Oncologic/Hematologic History: Patient was diagnosed in [...] done in March of 2005 at the [facility] revealed a small 3 mm subpleural nodule [...] cancer; she is being observed for cancer. 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 She has no tinnitus, deafness or vertigo; she denies any problems swallowing. She has no angina or palpitations, dizziness or diaphoresis; she has no shortness of breath at rest and on mild exertion; stable worsened shortness of breath with climbing inclines--less functional in the garden; she continues to note a persistent cough without sputum production-- slightly worse; she has no hemoptysis or hematemesis; She has no chronic nausea or vomiting; she has no abdominal pain or any bloating; she has no alternating diarrhea or constipation, bloody or tarry stools. She has no history of jaundice. She denies any problems passing urine, frequency or blood in the urine. She has now swelling of the extremities; she has no rash or skin changes; she has no bleeding or bruising tendency; she has no joint swelling. She has no fever chills or rigor; she has no loss of weight or appetite; she is doing well emotionally.Fatigue Is present but unchanged and not limiting functionality; Ankle pain and stiffness has resolved ;Patient has had a screening mammogram and breast exam in the past 12 months; Current Medications: IMITREX 50 MG ORAL TABLET (SUMATRIPTAN SUCCINATE) 1 tab by mouth once daily as needed LIPITOR 10 MG ORAL TABLET (ATORVASTATIN CALCIUM) 1 tab by mouth daily COD LIVER OIL ORAL CAPSULE (COD LIVER OIL) 1 tab by mouth once daily * COLACE 1 tab daily CALCIUM ASCORBATE 500 MG ORAL TABLET (CALCIUM ASCORBATE) 2 tabs daily VITAMIN D3 1000 UNIT ORAL TABLET (CHOLECALCIFEROL) 1-2 tabs daily by mouth during winter months * INHALER as needed * COMPRESSION STOCKINGS Please provide one pair of thigh-high compression [id number]-39-60 mm mercury VITAMIN C CAPSULE (ASCORBIC ACID CAPS) 1000u once daily ELIQUIS 5 MG ORAL TABLET (APIXABAN) take 1 tab twice a day; Route: ORAL TRELEGY ELLIPTA AEROSOL POWDER BREATH ACTIVATED ([id number] AEPB) once a day LOSARTAN POTASSIUM 50 MG ORAL TABLET (LOSARTAN POTASSIUM) 2 tabs daily; Route: ORAL LOPRESSOR TABLET (METOPROLOL TARTRATE TABS) 1-50mg tab and 1-10mg tab daily FLECAINIDE ACETATE 50 MG ORAL TABLET (FLECAINIDE ACETATE) 2 tabs daily; Route: ORAL AMLODIPINE-ATORVASTATIN 5-10 MG ORAL TABLET (AMLODIPINE-ATORVASTATIN) 5mg tab daily; Route: ORAL SPIRONOLACTONE 25 MG ORAL TABLET (SPIRONOLACTONE) 1 tab daily; Route: ORAL Vital Signs: Patient Profile: 84 Years Old Female Height: 63 inches (160.02 cm) Weight: 137.4 pounds (62.45 kg) BMI: 24.43 BSA: 1.65 O2 Sat: 96 % Temp: 97.9 degrees F (36.61 degrees C) tympanic Pulse rate: 70 / minute Resp: 18 per minute BP sittin / 84 (left arm) Cuff size: regular LMP N/A: post menopausal Patient in pain? no Vitals Taken By: Leona JOHNSON, March 09, 2019 11:16 AM Tobacco use: never smoker Rooming Notes The patient's weight at the last visit (03/03/2018) was 133 pounds. Today's weight is 137.4 pounds. This is a change of 4.40 pounds in 371 days. Medications and allergies were reviewed with the patient. Patient has not been hospitalized since last visit. Signed by: Leona JOHNSON, March 09, 2019 11:17 AM Physical Exam General: BMI: 24.43-4.4 pound weight gain Head: Patient has no scalp abnormalities. Eyes: She has no icterus. Ears: . Nose: . Mouth: She has no oropharyngeal lesions, erythema, exudate or masses. Dental hygiene is good; Neck: There is no cervical, supraclavicular or submandibular adenopathy. Chest Wall/Back: . Lungs: Lungs are clear to auscultation and percussion. Heart: Cardiac exam reveals a normal rhythm with no murmur, rub or gallop. Abdomen: Abdomen is soft, nontender with no rebound or guarding. Liver and spleen are not palpable. There are no abdominal masses. Bowel sounds are present normally. Rectal: . Genitalia: . MSK: . Pulses: Peripheral pulses are well felt. She has 1+ ankle edema bilaterally- no clubbing; Back: . Extremities: . Neurologic: Neurological exam [...] Lymph Nodes: . Psych: . Other: . Radiology Studies Laboratory data reviewed-copies given to patient; Impression & Recommendations: Problem #1: RENAL CELL CANCER (OPE25-A24.9) Complete Medication List: IMITREX 50 MG ORAL TABLET (SUMATRIPTAN SUCCINATE) 1 tab by mouth once daily as needed LIPITOR 10 MG ORAL TABLET (ATORVASTATIN CALCIUM) 1 tab by mouth daily COD LIVER OIL ORAL CAPSULE (COD LIVER OIL) 1 tab by mouth once daily * COLACE 1 tab daily CALCIUM ASCORBATE 500 MG ORAL TABLET (CALCIUM ASCORBATE) 2 tabs daily VITAMIN D3 1000 UNIT ORAL TABLET (CHOLECALCIFEROL) 1-2 tabs daily by mouth during winter months * INHALER as needed * COMPRESSION STOCKINGS Please provide one pair of thigh-high compression vnzhpihht-77-64 mm mercury VITAMIN C CAPSULE (ASCORBIC ACID CAPS) 1000u once daily ELIQUIS 5 MG ORAL TABLET (APIXABAN) take 1 tab twice a day; Route: ORAL TRELEGY ELLIPTA AEROSOL POWDER BREATH ACTIVATED ([id number] AEPB) once a day LOSARTAN POTASSIUM 50 MG ORAL TABLET (LOSARTAN POTASSIUM) 2 tabs daily; Route: ORAL LOPRESSOR TABLET (METOPROLOL TARTRATE TABS) 1-50mg tab and 1-10mg tab daily FLECAINIDE ACETATE 50 MG ORAL TABLET (FLECAINIDE ACETATE) 2 tabs daily; Route: ORAL AMLODIPINE-ATORVASTATIN 5-10 MG ORAL TABLET (AMLODIPINE-ATORVASTATIN) 5mg tab daily; Route: ORAL SPIRONOLACTONE 25 MG ORAL TABLET (SPIRONOLACTONE) 1 tab daily; Route: ORAL Plan: Renal cancer stage II: Patient has no evidence of recurrence; she is doing well; Patient has passedthe 10 year candie since diagnosis; she has an ECOG functional status of 1/4; she will continue with annual ultrasound of the kidney; she returns for followup in 12 months at her request. I recommended no further reason for annual CT scans, unless she is symptomatic;I also informed her that she can return here p.r.n.- she will let me know Lung nodules-patient has had a complete evaluation by Dr. Carter who recommended no further CT scans as the lesions have been stable since 2004. Followup with manager strategic marketing; She is aware that she can call me with any questions regarding kidney cancer or new symptoms. The patient has moved to [place], I again suggested that she switch her oncologic care to the [facility].She will think about it. This recommendation still stands. I also previously recommended she review the moles with her primary care physician and consider biopsy or removal of both, especially the one on the shoulder; I did not discuss today. In view of the hypertension and the presence of a solitary kidney, with sudden worsening of blood pressure control, Patient follows up with her PCP; As patient receives all her primary care in [place]-primary care issues like screening, vaccination and health maintenance issues are deferred to her PCP; Copy to: PCP: Uyen Geradr MD ] sent to above indicated cc'd provider(s) documented in this encounter Plan of Treatment Upcoming Encounters Date Type Specialty Care Team Description 03/26/2022 Eye Care Visit Ophthalmology Gladys England MD [address] [place] [address] [phone] (Wo rk) documented as of this encounter Visit Diagnoses Not on filedocumented in this encounter
--- OUTSIDE RECORDS SUMMARY | 2022-03-17 16:39 | XMS_ITS | Encounter Summary ---
:1935 [facility] Address [facility] [phone] [place] [address] Care Team Providers Name Role Phone Unavailable Primary Care Provider Unavailable Encounter Details Date Type Department Care Team Description 03/03/2018 [facility] Oncology and Hematology [address] [place] [address] [address] [place] [address] Social History Tobacco Use Types Packs/Day Years Used Date Never Assessed Sex Assigned at Date Recorded Not on file documented as of this encounter Last Filed Vital Signs Vital Sign Reading Time Taken Comments Blood Pressure 126/70 03/03/2018 12:18 PM EDT Pulse - - Temperature - - Respiratory Rate - - Oxygen Saturation - - Inhaled Oxygen Concentration - - Weight 60.3 kg (133 lb) 03/03/2018 12:18 PM EDT Height - - Body Mass Index 23.56 01/29/2016 3:19 PM EDT documented in this encounter Progress Notes Mirta Sorenson MD - 03/03/2018 12:18 PM EDT [facility] Hematology / Oncology TALITA VELASCO was seen today for follow up. 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 Treatment: Observation ECOG Performance Status: 0/4 Patient receiving Oral Antineoplastic Therapy? No Advanced Directive? not discussed History of Present Illness: Patient is 83 years old; she is accompanied by her ;Since her last visit, she has had no new procedures, new diagnoses or new medications ; No family member has been diagnosed with any form of cancer in the past year; In August 2016, she was diagnosed with atrial fibrillation and is currently on Eliquis; she continues to have shortness of breath with inclines; she is getting over an upper respiratory tract infection; She had a wonderful [place] in [place] to [place] in 2016; She went to to [facility] in 2014. Previously she had a left ankle fracture which needed internal fixation in July 2013 while traveling from [place] to [place]; She was previously seen by Dr. 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 She now has a primary care and pulmonary physician at [place], [place] . 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--now spreading her time between [place] and [place]; Patient originally lived and worked in [facility] Review of Systems The patient denies any [...] Please provide one pair of thigh-high compression [id number] mm mercury LOSARTAN POTASSIUM 25 MG ORAL TABLET (LOSARTAN POTASSIUM) take 2 tab daily VITAMIN C CAPSULE (ASCORBIC ACID CAPS) 1000u once daily ELIQUIS 5 MG ORAL TABLET (APIXABAN) take 1 tab twice a day LOPRESSOR HCT 50-25 MG ORAL TABLET (METOPROLOL-HYDROCHLOROTHIAZIDE) take 3 tabs daily TRELEGY ELLIPTA AEROSOL POWDER BREATH ACTIVATED (LGARNHJDAFM-TRJYFPBYO-CDAQSA AEPB) once a day Vital Signs: Patient Profile: 83 Years Old Female Height: 63 inches (160.02 cm) Weight: 133 pounds BMI: 23.65 BSA: 1.63 O2 Sat: 98 % Temp: 97.1 degrees F tympanic Pulse rate: 78 / minute Resp: 18 per minute BP sittin / 70 Menstrual History Note: post menopausalPatient in pain? no Vitals Taken By: Melita JOHNSON, March 03, 2018 12:18 PM Tobacco use: never smoker Rooming Notes Any Recent Biopsies?: NO Any Recent X-Rays, CT or PET Scans, Mammo, MRI, ECHO?: NO Any Recent Labs: YES Where & When: 02/15/18 [place] Need any Prescription Refills Today?: no The patient's weight at the last visit (02/09/2017) was 130.4 pounds. Today's weight is 133 pounds. This is a change of 2.60 pounds in 387 days. Patient has not been hospitalized since last visit. Physical Exam General: BMI: 23.65-2 pound weight gain Head: Patient has no [...] Lymph Nodes: . Psych: . Other: . Stool Studies Occult Blood Stool: - Lab Comments: Laboratory data pendingg Complete Medication List: IMITREX 50 MG ORAL [...] Please provide one pair of thigh-high compression beefiswxm-61-16 mm mercury LOSARTAN POTASSIUM 25 MG ORAL TABLET (LOSARTAN POTASSIUM) take 2 tab daily VITAMIN C CAPSULE (ASCORBIC ACID CAPS) 1000u once daily ELIQUIS 5 MG ORAL TABLET (APIXABAN) take 1 tab twice a day LOPRESSOR HCT 50-25 MG ORAL TABLET (METOPROLOL-HYDROCHLOROTHIAZIDE) take 3 tabs daily TRELEGY ELLIPTA AEROSOL POWDER BREATH ACTIVATED (SOFEDQQARZC-IEVKHGAGX-HRSVFW AEPB) once a day Plan: Renal cancer stage II: Patient has [...] have been stable since 2004. Followup with quality control microbiologist; She is aware that she can call me with any questions regarding kidney cancer or new symptoms. The patient is moving to [place], I again suggested that she switch her oncologic care to the [facility].She will think about it. This recommendation [...] patient receives all her primary care in [place]-primary care issues like screening, vaccination and health maintenance issues are deferred to her PCP; Patient Instructions: Return for follow-up in one year Happy belated birthday Please call if any questions regarding blood in the urine or other symptoms Ultrasound of the kidney at your convenience Keep up the great job of maintaining activity and continue to try and maintain hydration CC: Uyen Gerard MD sent to above indicated cc'd provider(s) documented in this encounter Plan of Treatment Upcoming Encounters Date Type Specialty Care Team Description 03/26/2022 Eye Care Visit Ophthalmology Gladys England MD [address] [place] [phone] (Wo rk) documented as of this encounter Visit Diagnoses Not on filedocumented in this encounter
--- OUTSIDE RECORDS SUMMARY | 2022-03-17 16:39 | XMS_ITS | Encounter Summary ---
:1935 Author [facility] Care Address [facility] [phone] [place] [address] Care Team Providers Name Role Phone Unavailable Primary Care Provider Unavailable Encounter Details Date Type Department Care Team Description 01/30/2015 [facility] Oncology and Hematology [address] [place] [phone] Social History Tobacco Use Types Packs/Day Years Used Date Never Assessed Sex Assigned at Date Recorded Not on file documented as of this encounter Plan of Treatment Upcoming Encounters Date Type Specialty Care Team Description 03/26/2022 Eye Care Visit Ophthalmology Gladys England MD [address] [place] [phone] (Wo rk) documented as of this encounter Visit Diagnoses Not on filedocumented in this encounter
--- OUTSIDE RECORDS SUMMARY | 2022-03-17 16:39 | XMS_ITS | Encounter Summary ---
:1935 Author Organization [facility] [place] [address] Care Team Providers Name Role Phone Uyen Gerard MD Primary Care Provider Reason for Visit Reason Onset Date Comments Medication Refill 12/16/2021 Encounter Details Date Type Department Care Team Description 12/16/2021 Refill Nephrology Hypertension Angel Ricks MD Essential hypertension at [facility] [address] [address] NEPHROLOGY DEPT. [phone] [place], [place] [address] (Wo rk) Social History Tobacco Use Types Packs/Day Years Used Date Never Smoker Smokeless Tobacco: Never Used Alcohol Use Standard Drinks/Week Comments Yes 7 (1 standard drink = 0.6 oz pure alcoho l) Sex Assigned at Date Recorded Female 03/31/2021 2:10 PM EDT documented as of this encounter Miscellaneous Notes Telephone Encounter - Manuel Ricks MD - 12/16/2021 12:47 PM EDT Patient requesting refill on spironolactone. No recent labs and due for f/u. I will refill x 1 for 90 days and ask my office to s/f And lab testing. documented in this encounter Plan of Treatment Not on filedocumented as of this encounter Visit Diagnoses Diagnosis Essential hypertension Unspecified essential hypertension documented in this encounter Care Teams Senior Technical Program Manager Relationship Specialty Start Date End Date Uyen Gerard MD PCP - General 07/01/13 [address] [place] [address] documented as of this encounter
--- OUTSIDE RECORDS SUMMARY | 2022-03-17 16:39 | XMS_ITS | Encounter Summary ---
:1935 Author Organization [facility] [place] [address] Care Team Providers Name Role Phone Uyen Gerard MD Primary Care Provider Reason for Visit Reason Comments Medication Refill Encounter Details Date Type Department Care Team Description 03/17/2022 Refill Nephrology Hypertension Angel Ricks MD Essential hypertension at [facility] [place] [address] [place] [address] NEPHROLOGY DEPT. [phone] [place], [place] [address] (Wo rk) Social History Tobacco Use Types Packs/Day Years Used Date Never Smoker Smokeless Tobacco: Never Used Alcohol Use Standard Drinks/Week Comments Yes 7 (1 standard drink = 0.6 oz pure alcoho l) Sex Assigned at Date Recorded Female 03/31/2021 2:10 PM EDT documented as of this encounter Miscellaneous Notes Telephone Encounter - Manuel Ricks MD - 03/17/2022 1:11 PM EDT To have repeat lab work soon regarding low Na. If not improving will need to stop spironolactone butwill refill for now. documented in this encounter Plan of Treatment Not on filedocumented as of this encounter Visit Diagnoses Diagnosis Essential hypertension Unspecified essential hypertension documented in this encounter Care Teams Drum Printer Relationship Specialty Start Date End Date Uyen Gerard MD PCP - General 07/01/13 [address] [place] [address] documented as of this encounter
--- OUTSIDE RECORDS SUMMARY | 2022-03-17 16:39 | XMS_ITS | Encounter Summary ---
:1935 Author Organization [facility] [place] [address] Care Team Providers Name Role Phone Uyen Gerard MD Primary Care Provider Encounter Details Date Type Department Care Team Description 02/12/2022 Orders Only Nephrology Hypertension Angel Ricks MD Chronic kidney disease, unspecified CKD stage; at [facility] Vitamin D deficiency [facility] DR [address] [place] [address] [place] [address] [phone] Social History Tobacco Use Types Packs/Day Years Used Date Never Smoker Smokeless Tobacco: Never Used Alcohol Use Standard Drinks/Week Comments Yes 7 (1 standard drink = 0.6 oz pure alcoho l) Sex Assigned at Date Recorded Female 03/31/2021 2:10 PM EDT documented as of this encounter Plan of Treatment Not on filedocumented as of this encounter Results Magnesium (02/14/2022 8:55 AM EDT) athologist Signature Magnesium 0.94 0.69 - 1.07 [facility] mmol/L [facility] Specimen Anatomical Collection Method Collection Time Receive d Time (Source) Location / / Volume Laterality Blood 02/14/2022 8:55 AM 9:03 EDT AM EDT Resulting Agency Comment Spec In Lab Manuel Ricks MD CHEMISTRY ORDERABLES Performing Organization Address City/State/[place] [address] Vitamin D, 25-Hydroxy (02/14/2022 8:55 AM EDT) Patholo gist Method Time Signature 25-OH Vit D 84 21 - 100 [facility] Total ng/mL [facility] 25-OH Vit D Sufficient [facility] Specimen Anatomical Collection Method Collection Time Receive d Time (Source) Location / / Volume Laterality Blood 02/14/2022 8:55 AM 2 9:03 EDT AM EDT Resulting Agency Comment Spec In Lab Manuel Ricks MD CHEMISTRY ORDERABLES Performing Organization Address City/[facility]/ZIP Code Phon e Number [address] PTH (02/14/2022 8:55 AM EDT) P athologist Signature PTH 63 15 - 65 [facility] AMANDA pg/mL [facility] Specimen Anatomical Collection Method Collection Time Receive d Time (Source) Location / / Volume Laterality Blood 02/14/2022 8:55 AM 2 9:03 EDT AM EDT Resulting Agency Comment Spec In Lab Manuel Ricks MD CHEMISTRY ORDERABLES Performing Organization Address City/[facility]/[place] [address] Albumin Level (02/14/2022 8:55 AM EDT) P athologist Signature Albumin 4.2 3.2 - 5.2 [facility] AMANDA g/dL [facility] Specimen Anatomical Collection Method Collection Time Receive d Time (Source) Location / / Volume Laterality Blood 02/14/2022 8:55 AM 2 9:03 EDT AM EDT Resulting Agency Comment Spec In Lab Manuel Ricks MD CHEMISTRY ORDERABLES Performing Organization Address City/[facility]/ZIP Code Phon e Number [address] Phosphorus (02/14/2022 8:55 AM EDT) athologist Signature Phosphorus 2.9 2.5 - 4.5 [facility] mg/dL [facility] Specimen Anatomical Collection Method Collection Time Receive d Time (Source) Location / / Volume Laterality Blood 02/14/2022 8:55 AM 9:03 EDT AM EDT Resulting Agency Comment Spec In Lab Manuel Ricks MD CHEMISTRY ORDERABLES Performing Organization Address City/State/[place]IP [place] [address] (ABNORMAL) Basic Metabolic Panel (non-fasting) (02/14/2022 8:55 AM EDT) athologist Signature Glucose Lvl 94 65 - 199 [facility] mg/dL [facility] Comment: Diabetes: >=200 mg/dL plus symp toms BUN 29 (H) 8 - 18 mg/dL [facility] Creatinine 0.98 0.70 - 1.20 mg/dL [facility] Sodium 127 (L) 135 - 145 mmol/L [facility] Potassium 4.8 3.5 - 5.0 mmol/L [facility] Comment: Please note: ??Patients with WBC >100,00 0 may have falsely elevated Potassium levels. ??For accurate Potassium quantif ication in these patients send serum separator tube (gold top) for subsequent determinations. ??Contact the Clinical Chemistry Laboratory if there are any qu estions. Chloride 89 (L) 98 - 107 mmol/L [facility] CO2 30 22 - 31 mmol/L [facility] Anion Gap 8 5 - 15 mmol/L [facility] Calcium 9.6 8.5 - 10.5 mg/dL [facility] Estimated GFR 53 (L) >=60 mL/min/1.73 m?? [facility] Comment: This patient? s estimated [...] Organization Address City/State/[place] [address] documented in this encounter Visit Diagnoses Diagnosis Chronic kidney disease, unspecified CKD stage Vitamin D deficiency Unspecified vitamin D deficiency documented in this encounter Care Teams Spot Machine Operator Relationship Specialty Start Date End Date Uyen Gerard MD PCP - General 07/01/13 [address] [place] [address] documented as of this encounter
--- OUTSIDE RECORDS SUMMARY | 2022-03-17 16:39 | XMS_ITS | Encounter Summary ---
:1935 Author Organization [facility] [place] [address] Care Team Providers Name Role Phone Uyen Gerard MD Primary Care Provider Encounter Details Date Type Department Care Team Description 03/06/2022 Notes Only Nephrology Hypertension at Manuel Ricks MD [facility] [address] [place] [address] [place] [address] [phone] (Wo rk) Social History Tobacco Use Types Packs/Day Years Used Date Never Smoker Smokeless Tobacco: Never Used Alcohol Use Standard Drinks/Week Comments Yes 7 (1 standard drink = 0.6 oz pure alcoho l) Sex Assigned at Date Recorded Female 03/31/2021 2:10 PM EDT documented as of this encounter Progress Notes Manuel Ricks MD - 03/06/2022 4:51 PM EDT Reviewed labs with patient. Cr up, Na a bit better. Feels fine. BP normal. Limiting fluids to 1.5L/dbut thirsty in hot weather. Will recheck in two weeks. documented in this encounter Plan of Treatment Scheduled Orders Name Type Priority Associated Diagnoses Order S chedule Basic Metabolic Panel Lab STAT Hyponatremia Expect ed: 03/20/2022 (non-fasting) (Approximate), Expires: 03/07/2023 documented as of this encounter Visit Diagnoses Diagnosis Hyponatremia Hyposmolality and/or hyponatremia documented in this encounter Care Teams Information Clerk Relationship Specialty Start Date End Date Uyen Gerard MD PCP - General 07/01/13 [address] [place] [address] documented as of this encounter
--- OUTSIDE RECORDS SUMMARY | 2022-03-17 16:39 | XMS_ITS | Encounter Summary ---
:1935 Author Organization [facility]: [facility] Care Address [facility] [phone] [place] [address] Care Team Providers Name Role Phone Unavailable Primary Care Provider Unavailable Encounter Details Date Type Department Care Team Description 12/13/2010 Hospital Encounter [facility] Laboratory Ser vices [address] [place] [address] Social History Tobacco Use Types Packs/Day Years Used Date Never Assessed Sex Assigned at Date Recorded Not on file documented as of this encounter Plan of Treatment Upcoming Encounters Date Type Specialty Care Team Description 03/26/2022 Eye Care Visit Ophthalmology Gladys England MD [address] [place] [phone] (Wo rk) documented as of this encounter Visit Diagnoses Not on filedocumented in this encounter
--- OUTSIDE RECORDS SUMMARY | 2022-03-17 16:39 | XMS_ITS | Encounter Summary ---
:1935 Author Organization [facility] [place] [address] Care Team Providers Name Role Phone Uyen Gerard MD Primary Care Provider Encounter Details Date Type Department Care Team Description 02/14/2022 Office Visit Nephrology Hypertension Angel Ricks MD Hyponatremia; at [facility] Stage 3a chronic kidney dise ase; [facility] COPD exacerbation; [facility] NEPHROLOGY DEPT. Leukocytosis, unspecified type; [place] [phone] [place] [address] Hypertension, unspecified type [phone] Social History Tobacco Use Types Packs/Day Years Used Date Never Smoker Smokeless Tobacco: Never Used Alcohol Use Standard Drinks/Week Comments Yes 7 (1 standard drink = 0.6 oz pure alcoho l) Sex Assigned at Date Recorded Female 03/31/2021 2:10 PM EDT documented as of this encounter Last Filed Vital Signs Vital Sign Reading Time Taken Comments Blood Pressure 167/70 02/14/2022 9:16 AM EDT Pulse 70 02/14/2022 9:16 AM EDT Temperature - - Respiratory Rate - - Oxygen Saturation - - Inhaled Oxygen Concentration - - Weight 58.5 kg (129 lb) 02/14/2022 9:16 AM EDT Height 162.6 cm (5' 4) 02/14/2022 9:16 AM EDT Body Mass Index 22.14 02/14/2022 9:16 AM EDT documented in this encounter Progress Notes Manuel Ricks MD - 02/14/2022 10:00 AM EDT Nephrology/Hypertension Clinic Follow-up Note [id number] ID: 87 y.o.year-old female for follow up of CKD and htn Past Medical History: Past Medical History: Diagnosis Date ??? COPD (chronic obstructive pulmonary disease) 06/02/2011 ??? Hypertension 06/02/2011 ??? 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 Rash ??? Renal cell cancer 06/02/2011 Patient Active Problem List Diagnosis Code ??? Hypertension I10 ??? Renal cell cancer C64.9 ??? COPD (chronic obstructive pulmonary disease) J44.9 ??? Stucco keratosis L85.1 ??? Seborrheic keratosis L82.1 ??? Dermal nevus of other site D23.9 ??? Solar lentigo L81.4 Current Outpatient Medications on File Prior to Visit Medication Sig Dispense Refill ??? Alphagan P 0.1 % Drops Place into both eyes 2 times daily. ??? doxycycline (VIBRA-TABS) 100 mg Tablet TAKE 1 TABLET BY MOUTH TWO TIMES A DAY FOR 5 DAYS ??? latanoprost (Xalatan) 0.005 % Drops Place 1 drop into both eyes nightly. ??? levalbuteroL (Xopenex) 0.63 mg/3 mL Solution for Nebulization INHALE THE CONTENTS OF ONE VIAL VIA NEBULIZER THREE TIMES A DAY ??? predniSONE (Deltasone) 20 mg Tablet Take 40 mg by mouth daily. ??? spironolactone (Aldactone) 25 mg Tablet Take 1 tablet by mouth daily. 90 tablet 0 ??? omega-3 fatty acids/fish oil (OMEGA 3 FISH OIL ORAL) Take by mouth daily. ??? apixaban (Eliquis) 5 mg Tablet Take 5 mg by mouth 2 times daily. ??? metoprolol succinate XL (Toprol-XL) 50 mg Tablet Sustained Release 24 hr Take by mouth. 75 MG-AM, 50 MG-PM ??? fluticasone/umeclidin/vilanter (TRELEGY ELLIPTA INHL) Inhale into the lungs daily. ??? flecainide (TAMBOCOR) 50 mg Tablet Take [...] Take 10 mg by mouth daily. ??? cholecalciferol, Vitamin D3, 25 mcg (1,000 unit) Capsule Take 1,000 Units by mouth daily. ??? SUMAtriptan (Imitrex) 25 mg Tablet Take 50 mg by mouth as needed. ??? DOCUSATE SODIUM (COLACE ORAL) No current facility-administered medications on file prior to visit. Allergies Allergen Reactions ??? Codeine Phosphate S: My first visit with this patient previously followed by a colleague. Last seen in 2018 and by telehealth in 2020: normal ACR, normal Cr (~1), eGFR right around 60. Home bps usually 123-135/60-70 Feeling congested last week and feverish last week. COVID neg. Went to urgent care and dx with copd flare. CXR done. No mention of pna or chf. Started on prednisone and doxycycline and albuterol. Feeling much better but BP going up on the prednisone. Home bp up to 150s systolic. Plan was for her to take pred 20bid x 15 days but daughter (an social service coordinator) has advised her to taper after one week over one more week. Started pred last Thursday (this is day 6); today is last day of doxy. Feels fluid intake is up on current meds Does not use added salt and generally avoids salt Right foot tends to swell a little (this has been noticeable for some time) Went on cruise to [place] in the spring, swelling of both feet more severe but was on her feet a lot Sleeping ok in general but did not sleep well last night. Normally no orthopnea but has propped up lately due to congestion. Has lost some wt on purpose (135-->129) over the winter to summer but no change in the past week. Last week used an extra pillow, now back to her usual. Mild chest discomfortwith coughing but no anginal cp. Has h/o afib but no h/o CHF. Sees customs entry clerk at [facility], most recently last Aug next. Has had echo in past and may be s/f another one this year. No urinary sx at all (no foam even). No n/v. Prone to constipation, maybe a bit worse. Uses prunes. Feels balance is a bit off; no falls. Perhaps a bit less power in left due to prior ankle fracture. To get hearing aids. Covid vaccine x 3, due to second booster O: Patient Vitals for the past 24 hrs: Pulse BP 02/14/22 0916 70 167/70 174/74 right arm seated 179/79 left arm seated General: nad Eye: chloe ENT: Symmetric, benign Neck: Normal jvp, no masses CV: rrr no m/r/g Resp: Clear, slightly distant, no wheezes or crackles Abd: Soft, nt, nabs, no palp masses Ext: 2+ pitting right diaz, tr to 1+ left idaz Skin: No rash Neuro: nonfocal, no drift, normal fnf, normal gait Psych: Mood and affect normal Labs: Recent Results (from the past 24 hour(s)) Magnesium Result Value Ref Range Magnesium 0.94 0.69 - 1.07 mmol/L Vitamin D, 25-Hydroxy Result Value Ref Range 25-OH Vit D Total 84 21 - 100 ng/mL 25-OH Vit D Interp Sufficient PTH Result Value Ref Range PTH 63 15 - 65 pg/mL Albumin Level Result Value Ref Range Albumin 4.2 3.2 - 5.2 g/dL Phosphorus Result Value Ref Range Phosphorus 2.9 2.5 - 4.5 mg/dL Basic Metabolic Panel (non-fasting) Result Value Ref Range Glucose Lvl 94 65 - 199 mg/dL BUN 29 (H) 8 - 18 mg/dL Creatinine 0.98 0.70 - 1.20 mg/dL Sodium 127 (L) 135 - 145 mmol/L Potassium 4.8 3.5 - 5.0 mmol/L Chloride 89 (L) 98 - 107 mmol/L CO2 30 22 - 31 mmol/L Anion Gap 8 5 - 15 mmol/L Calcium 9.6 8.5 - 10.5 mg/dL Estimated GFR 53 (L) >=60 mL/min/1.73 m?? Hemogram Result Value Ref Range WBC 14.4 (H) 4.0 - 9.5 x10(3)/mcL RBC 4.88 4.00 - 5.21 x10(6)/mcL Hemoglobin 14.6 11.7 - 15.5 g/dL Hematocrit 43.1 35.7 - 45.8 % MCV 88.3 82.6 - 94.4 fL MCH 29.9 27.1 - 32.0 pg MCHC 33.9 31.7 - 35.0 g/dL Platelets 400 (H) 145 - 357 x10(3)/mcL RDWSD 41.4 37.0 - 46.0 fL RDWCV 12.8 11.5 - 14.1 % MPV 8.4 7.6 - 12.9 fL nRBC % Auto 0.0 % nRBC Abs Auto 0.000 0.000 - 0.000 x10(3)/mcL Differential, Automated Result Value Ref Range Neutrophils % 74.1 % Neutr Abs (ANC) 10.66 (H) 1.70 - 6.10 x10(3)/mcL Lymphocytes % 8.5 % Lymphocytes Abs 1.2 0.9 - 3.2 x10(3)/mcL Monocytes % 11.7 % Monocyte Abs 1.7 (H) 0.3 - 0.9 x10(3)/mcL Eosinophils % 0.0 % Eosinophils Abs 0.0 0.0 - 0.4 x10(3)/mcL Basophils % 0.1 % Basophils Abs 0.0 0.0 - 0.1 x10(3)/mcL Immature Gran % 5.60 % Miriam Gran Abs 0.80 (H) 0.00 - 0.04 x10(3)/mcL Scan, Peripheral Blood Result Value Ref Range Plat Estimate Increased RBC Morphology Abnormal Stippled RBCs Present >1/HPF Lab Results Component Value Date WBC 14.4 (H) 02/14/2022 RBC 4.88 02/14/2022 HGB 14.6 02/14/2022 HCT 43.1 02/14/2022 MCV 88.3 02/14/2022 MCH 29.9 02/14/2022 MCHC 33.9 02/14/2022 PLATELET 400 (H) 02/14/2022 RDWCV 12.8 02/14/2022 Chemistry Component Value Date/Time NA 127 (L) 02/14/2022 0855 K 4.8 02/14/2022 0855 CL 89 (L) 02/14/2022 0855 CO2 30 02/14/2022 0855 BUN 29 (H) 02/14/2022 0855 CREATININE 0.98 02/14/2022 0855 Component Value Date/Time CALCIUM 9.6 02/14/2022 0855 ALKPHOS 65 07/01/2013 0927 AST 29 07/01/2013926 ALT 22 07/01/2013 09 BILITOT 0.4 07/01/2013 09 Lab Results Component Value Date PHOS 2.9 02/14/2022 Recent Labs 02/14/22 0855 ALBUMIN 4.2 Office UA: 1.015, pH 6, tr pro, trace heme. Sediment: mod squames. Occ transitional cells. 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 Stable labs. Planning: discussed stages of CKD and annual monitoring Proteinuria: minimal, recheck annually BP/volume status: elvated today and high at oz recently on pred taper; regimen atypical but appearsto be well tolerated and effective. Mild low sodium discussed below. Will stop pred and have her monitor bp. IF it falls back to well controlled baseline and sodium normalizes, no adjustment needed. Diabetes control: n/a Lytes/acid-base: mildly worse hyponatremia (baseline low 130s, now 127). Urine studies c/w SIADH butalso on spironolactone which may raise urine sodium and could obscure any element of chf? Reports higher than normal fluid intake with recent pills for copd flare and this, plus the pulm inflammation, may be an explanation? No sx. Will have her limit fluids to 1/5L per day and will recheck labs in 1-2 weeks. If Na not normalizing, will need to stop spironolactone and investigate. MBD: ca/p/D/pth all ok Nutrition: alb normal Anemia: normal hb. Leukocytosis: likely related to pred taper. Recheck. Other : copd flare, sx have resolved, she is completing her doxy course. I think she can stop the pred (has had 6 days) Assymetric edema could suggest DVT but on apixaban and no sx. She did travel to [facility] so had risk factor despite anticoagulation. She has f/u with her pcp and customs entry clerk this month who can assess need for additional w/u. F/u plating equipment tender ordered for next week Patient will monitor her bp and let me know If all improves, f/u one year. CC: Uyen Gerard MD [facility] [address] [place] [address] Yaz[facility] Cardiology at [facility] documented in this encounter Plan of Treatment Scheduled Orders Name Type Priority Associated Diagnoses Order S chedule Basic Metabolic Panel Lab STAT Hyponatremia Expect ed: 02/21/2022 (non-fasting) (Approximate), Expires: 02/15/2023 documented as of this encounter Procedures Procedure Name Priority Date/Time Associated Diagnosis Comme nts HC CREATININE - NON Routine 02/14/2022 10:00 Hyponatremia Resu lts for this BLOOD AM EDT procedure are i n the results section. HC SODIUM, URINE Routine 02/14/2022 10:00 Hyponatremia Results for this AM EDT procedure are i n the results section. HC OSMOLALITY URINE Routine 02/14/2022 10:00 Hyponatremia Resu lts for this AM EDT procedure are i n the results section. documented in this encounter Results U Albumin/Cre Ratio (02/14/2022 10:00 AM EDT) P athologist Signature Alb/Cr Ratio, 21 0 - 29 JUAN MANUEL RUSTAMANDA Random mcg/mg Cr [facility] Comment: Reference Ranges: <30 mcg/mg: Normal 30-300 mcg/mg: Moderately increased albu minuria.* >300 mcg/mg: Severely increased albuminu mimi. * ACEI or ARB recommended if diabetic; s uggested if BP>130/80 without diabetes ACEI or ARB strongly recommended if di abetic; recommended if BP>130/80 without diabetes Two of three specimens collected within a 3 to 6 month period should be abnormal before considering a patient to have albuminuria. Transient causes: exercise, fever, infection, CHF, marked hyperglycemia or hypertension. Persistent albuminuria indicates CKD and is an independent risk factor for ASCVD. ADA Standards of Medical Care in Diabete s-2016; KDIGO: Kidney International Supplements (2012) 2, 357? 362 U Albumin Conc, Random 9.3 mg/L [facility] U Creatinine 44 mg/dL [facility] Specimen Anatomical Collection Method Collection Time Receive d Time (Source) Location / / Volume Laterality Urine 02/14/2022 10:00 02/14/2022 AM EDT 11:50 AM EDT Resulting Agency Comment Spec In Lab Manuel Ricks MD URINE ORDERABLES Performing Organization Address City/[facility]/ZIP Code Phon e Number [address] Sodium, urine, random (02/14/2022 10:00 AM EDT) P athologist Signature U Sodium 41 mmol/L [facility] Specimen Anatomical Collection Method Collection Time Receive d Time (Source) Location / / Volume Laterality Urine 02/14/2022 10:00 02/14/2022 AM EDT 11:50 AM EDT Resulting Agency Comment Spec In Lab Manuel Ricks MD URINE ORDERABLES Performing Organization Address [facility] Phon e Number [address] Osmolality, urine, random (02/14/2022 10:00 AM EDT) P athologist Signature U Osmolality 419 50 - 1,200 [facility] mOsm/kg [facility] Specimen Anatomical Collection Method Collection Time Receive d Time (Source) Location / / Volume Laterality Urine 02/14/2022 10:00 02/14/2022 AM EDT 11:50 AM EDT Resulting Agency Comment Spec In Lab Manuel Ricks MD URINE ORDERABLES Performing Organization Address City/State/ZIP [place] [address] documented in this encounter Visit Diagnoses Diagnosis Hyponatremia Hyposmolality and/or hyponatremia Stage 3a chronic kidney disease COPD exacerbation Obstructive chronic bronchitis with exac erbation Leukocytosis, unspecified type Hypertension, unspecified type documented in this encounter Care Teams Enamel Applier Relationship Specialty Start Date End Date Uyen Gerard MD PCP - General 07/01/13 [address] [place] [address] documented as of this encounter
--- OUTSIDE RECORDS SUMMARY | 2022-03-17 16:39 | XMS_ITS | Clinical Summary ---
:1935 Author Organization [facility]: [facility] Care Address [facility] [phone] [place] [address] Care Team Providers Name Role Phone yUen Gerard MD Primary Care Provider Allergies Active Allergy Reactions Severity Noted Date Comments Codeine Nausea 11/26/2021 Medications Medication Sig Dispensed Refills Start Date End Date Status apixaban (ELIQUIS) 5 Take 5 mg by 0 Active MG Oral Tab mouth TWICE A DAY. losartan (COZAAR) 50 Take 50 mg by 0 Active MG Oral Tab mouth TWICE A DAY. Every evening. flecainide (TAMBOCOR) Take 50 mg by 0 Active 50 MG Oral Tab mouth TWICE A DAY. spironolactone Take 25 mg by 0 A ctive (ALDACTONE) 25 MG Oral mouth EVERY Tab MORNING. amLODIpine (NORVASC) 5 Take 5 mg by 0 Active MG Oral Tab mouth EVERY EVENING. metoprolol tartrate Take 75 mg by 0 Active (LOPRESSOR) 50 MG Oral mouth TWICE A Tab DAY. metoprolol tartrate Take 50 mg by 0 Active (LOPRESSOR) 50 MG Oral mouth TWICE A Tab DAY. atorvastatin (LIPITOR) Take 10 mg by 0 Active 10 MG Oral Tab mouth EVERY EVENING. SUMAtriptan succinate Take 50 mg by 0 Active (IMITREX) 50 MG Oral mouth ONCE & MAY Tab REPEAT ONCE AFTER 2 HOURS for Migraine. Fluticasone-Umeclidin- 0 Active Vilant (TRELEGY ELLIPTA IN) Levalbuterol Tartrate Inhale 1 Puff 0 Active (XOPENEX) 45 MCG/ACT EVERY 4 TO 6 Inhalation Aerosol HOURS NEEDED. levalbuterol (XOPENEX) Use 1 Vial via 0 Active 0.31 MG/3ML Inhalation nebulizer EVERY Nebu Soln 8 HOURS. docusate sodium Take 100 mg by 0 Active (COLACE) 100 MG Oral mouth DAILY. Cap [place]-3 Fatty Acids Take 1,000 mg by 0 Active (FISH OIL) 1000 MG mouth DAILY. Oral Cap cholecalciferol Take 1,000 Units 0 Active (VITAMIN D3) 25 MCG by mouth DAILY. (1000 UT) Oral Tab ascorbic acid (VITAMIN Take 1,000 mg by 0 Active C) 1000 MG Oral Tab mouth DAILY. Calcium Take by mouth 0 Active Carbonate-Vitamin D TWICE A DAY. (CALTRATE 600+D PO) latanoprost (XALATAN) Instill 1 Drop 0 Active 0.005 % Ophthalmic in affected Solution eye(s) EVERY EVENING. ALPHAGAN P 0.1 % Instill 1 Drop 15 mL 3 11/26/2021 023 Active Ophthalmic Solution in left eye TWICE A DAY. BRAND MEDICALLY NECESSARY. DO NOT SUBSTITUTE. DISPENSE 15ml BOTTLE FOR 90-DAY SUPPLY brimonidine (ALPHAGAN Instill 1 Drop 15 mL 3 12/17/2021 Active P) 0.1 % Ophthalmic in both eyes Solution TWICE A DAY. latanoprost (XALATAN) Instill 1 Drop 7.5 mL 3 12/17/2021 Active 0.005 % Ophthalmic in both eyes AT Solution BEDTIME. 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 from Last 3 Months Family History Medical History Relation Comments Glaucoma Mother Relation Status Comments Mother Social History Tobacco Use Types Packs/Day Years Used Date Never Smoker Smokeless Tobacco: Never Used Alcohol Use Standard Drinks/Week Comments Yes 0 (1 standard drink = 0.6 oz pure alcoho l) Sex Assigned at Date Recorded Not on file Last Filed Vital Signs Vital Sign Reading Time Taken Comments Blood Pressure 136/76 03/07/2020 12:05 PM EDT Pulse - - Temperature - - Respiratory Rate - - Oxygen Saturation - - Inhaled Oxygen Concentration - - Weight 62 kg (136 lb 9.6 oz) 03/07/2020 12:05 PM EDT Height 160 cm (5' 3) 03/07/2020 12:05 PM EDT Body Mass Index 24.2 03/07/2020 12:05 PM EDT Plan of Treatment Upcoming Encounters Date Type Specialty Care Team Description 03/26/2022 Eye Care Visit Ophthalmology Gladys England MD [address] [place], [place] [address] (Wo rk) Health Maintenance Due Date Last Done Comments Cholesterol 1935 COVID-19 Vaccine (#1) 1942 DTaP/Tdap/Td Vaccines (1 - 01/15/1956 Tdap) Zoster (Shingles) Vaccines (1 1987 of 2) Osteoporosis Screening 2002 Pneumococcal Vaccine: 65+ 2002 Years (1 - PCV) Influenza Vaccine (#1) 2022 06/19/2004, 07/12/2003 HIB Vaccines Aged Out No longer eligib le based on patient's age to complete this to [facility] HPV Vaccines Aged Out No longer eligib le based on patient's age to complete this to pic Hepatitis A Vaccines Aged Out No longer e ligible based on patient's age to complete this to pic Hepatitis B Vaccines Aged Out No longer e ligible based on patient's age to complete this to pic IPV Vaccines Aged Out No longer eligib le based on patient's age to complete this to pic Meningococcal Vaccines Aged Out No longer eligible based on patient's age to complete this to pic Insurance Payer Benefit Plan / Subscriber ID Effective Dates Phone Addre ss Type Group MEDICARE MEDICARE A & B [id number] 2021-Present Med icare Medicare [address] [place] [address] [employer] [id number] 2019-Present [address] [place] [address] Guarantor Name Account Type Relation to Date of Phone Billing Patient Address Jerri Velasco Personal/Family Self 1935 [address] (Home) [place] [address] [facility] Corporate Other 11/29/2003 03 [address] [facility] (Home) [id number] [place] [address] Jerri Velasco Personal/Family Self [phone] [place] [address] Jerri Velasco Personal/Family Self [phone] [place] [address] Care Teams Export Documents Clerk Relationship Specialty Start Date End Date Uyen Gerard MD PCP - General Family Medicine 08/27/21 [address] [place] [address]
--- OUTSIDE RECORDS SUMMARY | 2022-03-17 16:39 | XMS_ITS | Encounter Summary ---
:1935 Author Organization [facility] Address [facility] [phone] [place] [address] Care Team Providers Name Role Phone Unavailable Primary Care Provider Unavailable Encounter Details Date Type Department Care Team Description 03/07/[address] [facility] Laboratory Ser vices [address] [place], [place] [id number] Social History Tobacco Use Types Packs/Day Years Used Date Never Assessed Sex Assigned at Date Recorded Not on file documented as of this encounter Plan of Treatment Upcoming Encounters Date Type Specialty Care Team Description 03/26/2022 Eye Care Visit Ophthalmology Gladys England MD [address] [place], [place] [address] (Wo rk) documented as of this encounter Procedures Procedure Name Priority Date/Time Associated Comments Diagnosis LACTATE DEHYDROGENASE Routine 03/07/2020 12:46 Re sults for this PM EDT procedure are i n the results section. COMPREHENSIVE Routine 03/07/2020 12:46 Results fo r this METABOLIC PANEL PM EDT procedure ar e in the results section. URINALYSIS, MICROSCOPY Routine 03/07/2020 12:46 R esults for this ONLY PM EDT procedure are i n the results section. NONGYN CYTOLOGY Routine 03/07/2020 12:46 Results for this SPECIMEN PM EDT procedure are i n the results section. URINALYSIS Routine 03/07/2020 12:46 Results for this PM EDT procedure are i n the results section. COMPLETE BLOOD COUNT Routine 03/07/2020 12:46 Res ults for this WITH AUTO DIFFERENTIAL PM EDT proce dure are in the results section. documented in this encounter Results Urinalysis, Microscopy Only (03/07/2020 12:46 PM EDT) Patholo gist Method Time Signature URINE SQUAMOUS RARE NEGATIVE- 03/07/2020 [facility] EPITHELIALS RARE /lpf 4:11 PM EDT CONVERSION RENAL RARE NEGATIVE- 03/07/2020 [facility] EPITHELIAL RARE /lpf 4:11 PM EDT CONVERSION CELLS URINE WBC 0-5 0-5 CELLS 03/07/2020 [facility] /hpf 4:11 PM EDT CONVERSION URINE BACTERIA OCCASIONAL NEGATIVE- 03/07/2020 [facility] OCCASIONAL 4:11 PM EDT CONVERSION /hpf MUCOUS RARE NEGATIVE- 03/07/2020 [facility] RARE /lpf 4:11 PM EDT CONVERSION Specimen (Source) Anatomical Collection Method Collection Time Re ceived Time Location / / Volume Laterality 03/07/2020 12:46 PM EDT Mirta Sorenson MD LAB URINE ORDERABLES Performing Organization Address City/State/ZIP Code Phon e Number [facility] CONVERSION (ABNORMAL) Urinalysis (03/07/2020 12:46 PM EDT) Patholo gist Method Time Signature URINE COLOR YELLOW 03/07/2020 [facility] 1:37 PM EDT CONVERSION URINE APPEARANCE CLEAR 03/07/2020 [facility] 1:37 PM EDT CONVERSION URINE PH 7.0 5.0 - 8.0 03/07/2020 [facility] 1:37 PM EDT CONVERSION URINE SPEC 1.011 1.005 - 03/07/2020 [facility] GRAVITY 1.030 1:37 PM EDT CONVERSION URINE PROTEIN NEGATIVE NEG-TRACE 03/07/2020 [facility] 1:37 PM EDT CONVERSION URINE GLUCOSE NEGATIVE NEGATIVE 03/07/2020 [facility] 1:37 PM EDT CONVERSION KETONES (URINE) NEGATIVE NEGATIVE 03/07/2020 [facility] 1:37 PM EDT CONVERSION URINE BILIRUBIN NEGATIVE NEGATIVE 03/07/2020 [facility] 1:37 PM EDT CONVERSION URINE BLOOD NEGATIVE NEGATIVE 03/07/2020 [facility] 1:37 PM EDT CONVERSION Nitrite NEGATIVE NEGATIVE 03/07/2020 [facility] 1:37 PM EDT CONVERSION Leukocytes TRACE (A) NEGATIVE 03/07/2020 [facility] 1:37 PM EDT CONVERSION URINE NORMAL NORMAL 03/07/2020 [facility] UROBILINOGEN 1:37 PM EDT CONVERSION Specimen (Source) Anatomical Collection Method Collection Time Re ceived Time Location / / Volume Laterality 03/07/2020 12:46 PM EDT Mirta Sorenson MD LAB URINE ORDERABLES Performing Organization Address City/State/ZIP Code Phon e Number [facility] CONVERSION Lactate Dehydrogenase (03/07/2020 12:46 PM EDT) P athologist Signature LDH TOTAL 208 120 - 246 03/07/2020 [facility] U/L 2:05 PM EDT CONVERSION Specimen (Source) Anatomical Collection Method Collection Time Re ceived Time Location / / Volume Laterality 03/07/2020 12:46 PM EDT Mirta Sorenson MD LAB BLOOD ORDERABLES Performing Organization Address City/State/ZIP Code Phon e Number [facility] CONVERSION (ABNORMAL) Comprehensive Metabolic Panel (03/07/2020 12:46 PM EDT) Patholo gist Method Time Signature ESTIMATED GFR 50 (A) mL/min/1. 03/07/2020 [facility] 73sqM 2:05 PM EDT CONVERSION ESTIMATED GFR Average GFR for 70+ yr old = 75 mL/min/1.73m2 03/07/2020 [facility] Multiply GFR by 1.16 for patients. 2:05 PM EDT CONVERSION (A) SODIUM 132 (L) 136 - 145 03/07/2020 [facility] mEq/L 2:05 PM EDT CONVERSION POTASSIUM 4.7 3.5 - 5.1 03/07/2020 [facility] mEq/L 2:05 PM EDT CONVERSION CHLORIDE 94 (L) 98 - 107 03/07/2020 [facility] mEq/L 2:05 PM EDT CONVERSION CO2 32 (H) 20 - 31 03/07/2020 [facility] mEq/L 2:05 PM EDT CONVERSION ANION GAP 6.0 6.0 - 03/07/2020 [facility] 20.0 2:05 PM EDT CONVERSION mEq/L GLUCOSE 74 74 - 100 03/07/2020 [facility] mg/dL 2:05 PM EDT CONVERSION BUN 25 (H) 9 - 23 03/07/2020 [facility] mg/dL 2:05 PM EDT CONVERSION CREATININE 1.03 (H) 0.50 - 03/07/2020 [facility] 0.80 2:05 PM EDT CONVERSION mg/dL BUN/CREAT 24.3 03/07/2020 [facility] RATIO 2:05 PM EDT CONVERSION CALCIUM 9.9 8.3 - 03/07/2020 [facility] 10.6 2:05 PM EDT CONVERSION mg/dL TOTAL PROTEIN 7.3 5.7 - 8.2 03/07/2020 [facility] g/dL 2:05 PM EDT CONVERSION ALBUMIN 4.4 3.2 - 4.8 03/07/2020 [facility] g/dL 2:05 PM EDT CONVERSION AST 27 13 - 40 03/07/2020 [facility] U/L 2:05 PM EDT CONVERSION ALT 25 7 - 40 03/07/2020 [facility] U/L 2:05 PM EDT CONVERSION ALK.PHOS. 75 46 - 116 03/07/2020 [facility] U/L 2:05 PM EDT CONVERSION TOTAL 0.6 0.3 - 1.2 03/07/2020 [facility] BILIRUBIN mg/dL 2:05 PM EDT CONVERSION GLOBULIN 2.9 g/dL 03/07/2020 [facility] 2:05 PM EDT CONVERSION ALBUMIN/GLOB 1.52 03/07/2020 [facility] RATIO 2:05 PM EDT CONVERSION CKD STAGE Stage 3 03/07/2020 [facility] 2:05 PM EDT CONVERSION Specimen (Source) Anatomical Collection Method Collection Time Re ceived Time Location / / Volume Laterality 03/07/2020 12:46 PM EDT Mirta Sorenson MD LAB BLOOD ORDERABLES Performing Organization Address City/State/ZIP Code Phon e Number [facility] CONVERSION (ABNORMAL) Complete Blood Count with Auto Differential (03/07/2020 12:46 PM EDT) Analysis Performed At Patho logist Time Signature WBC COUNT 8.6 4.8 - 10.8 03/07/2020 [facility] X10 3/uL 1:53 PM EDT CONVERSION RBC COUNT 4.77 4.20 - 03/07/2020 [facility] 5.40 X10 1:53 PM EDT CONVERSION 6/uL HEMOGLOBIN 14.1 12.0 - 03/07/2020 [facility] 16.0 g/dL 1:53 PM EDT CONVERSION HEMATOCRIT 44.0 37.0 - 03/07/2020 [facility] 47.0 % 1:53 PM EDT CONVERSION MCV 92.2 79.0 - 03/07/2020 [facility] 97.0 fL 1:53 PM EDT CONVERSION MCH 29.6 27.0 - 03/07/2020 [facility] 31.0 pg 1:53 PM EDT CONVERSION MCHC 32.0 32.0 - 03/07/2020 [facility] 37.0 g/dL 1:53 PM EDT CONVERSION RDW 13.1 11.5 - 03/07/2020 [facility] 14.5 % 1:53 PM EDT CONVERSION RDW-SD 44.3 32.0 - 03/07/2020 [facility] 68.0 fL 1:53 PM EDT CONVERSION PLATELET COUNT 285 140 - 440 03/07/2020 [facility] X10 3/uL 1:53 PM EDT CONVERSION MPV (BACK 9.3 (L) 9.7 - 13.2 03/07/2020 [facility] OFFICE) fL 1:53 PM EDT CONVERSION NEUTROPHILS, % 66 40 - 74 % 03/07/2020 [facility] 1:53 PM EDT CONVERSION LYMPHOCYTE % 19 19 - 48 % 03/07/2020 [facility] (BACK OFFICE) 1:53 PM EDT CONVERSION MONOCYTE % 12 (H) 3 - 9 % 03/07/2020 [facility] (BACK OFFICE) 1:53 PM EDT CONVERSION EOSINOPHILS, % 1 0 - 7 % 03/07/2020 [facility] 1:53 PM EDT CONVERSION BASOPHILS, % - 1 0 - 1 % 03/07/2020 [facility] 1:53 PM EDT CONVERSION ABSOLUTE NEUT 5.71 1.90 - 03/07/2020 [facility] COUNT 8.00 X 10 1:53 PM EDT CONVERSION 3/uL Specimen (Source) Anatomical Collection Method Collection Time Re ceived Time Location / / Volume Laterality 03/07/2020 12:46 PM EDT Mirta Sorenson MD LAB BLOOD ORDERABLES Performing Organization Address City/State/ZIP Code Phon e Number [facility] CONVERSION Nongyn Cytology Specimen (03/07/2020 12:46 PM EDT) Component Value Ref Test Analysis Performed At [facility] Range Method Time Signature MEDICAL FINAL DIAGNOSIS: 03/13/2020 [facility] CYTOLOGY A. Voided urine, ThinPrep: 11:21 AM CON VERSION ?- NEGATIVE FOR HIGH GRADE UROTHELIAL CARCINOMA. EDT ?- UROTHELIAL CELLS, CELLS, LYMPHOCYTES AND FEW RED ?BLOOD CELLS. MICROSCOPIC DESCRIPTION: Microscopic examination has been performed. GROSS DESCRIPTION: Source Name: URINE: Voided Urine for Cytology Collection Method Description: VOIDED FLUID Other: Recvd Approx 30 ml Clear Medium Yellow Voided Urine In a Sterile Specimen Container and Sepparate Bottle Underfined of ThinPrep Labeled with Patient Information for Cytology CLINICAL INFORMATION: Voided Urine for Cytology H/o Renal Cancer Opt [facility], CLIA certified to perform high complexity testing and [employer] (CAP) accredited, has developed and determined the characteristic performance of immunohistochemical stains including Analyte Specific Reagents(ASR's). ??ASR's have not been cleared or approved by the U.S. Food and Drug Administration (FDA); however, the FDA has determined that such clearance or approval is not necessary. ??All control stains performed as expected. Immunohistochemistry stains are performed per slide with the exception of prostate cocktail which are comprised of three immunohistochemical stains per slide. This document was generated with the aid of voice recognition software. ??Please be aware that there may be inadvertent intervention specialist errors not identified and corrected by the author. CPT Codes: CENH ?? 29526 x 1 ?Electonically signed by: ? ADELITA ESTRADA MD ? 03/13/2020 ??10:51 Specimen (Source) Anatomical Collection Method Collection Time Re ceived Time Location / / Volume Laterality 03/07/2020 12:46 PM EDT Mirta Sorenson MD LAB CYTOLOGY ORDERABLES Performing Organization Address City/State/ZIP Code Phon e Number [facility] CONVERSION documented in this encounter Visit Diagnoses Not on filedocumented in this encounter
--- OUTSIDE RECORDS SUMMARY | 2022-03-17 16:39 | XMS_ITS | Encounter Summary ---
:1935 Author Organization [facility]: [facility] Address [facility] [phone] [place] [address] Care Team Providers Name Role Phone Unavailable Primary Care Provider Unavailable Encounter Details Date Type Department Care Team Description 03/07/2020 [facility] Conversion [facility] OUTPATIENT CONV Generic, Pro vider [employer] [address] [place], [place] [address] (Wo rk) Social History Tobacco Use Types Packs/Day Years Used Date Never Assessed Sex Assigned at Date Recorded Not on file documented as of this encounter Plan of Treatment Upcoming Encounters Date Type Specialty Care Team Description 03/26/2022 Eye Care Visit Ophthalmology Gladys England MD [address] [place], [place] [address] (Wo rk) documented as of this encounter Visit Diagnoses Not on filedocumented in this encounter
--- OUTSIDE RECORDS SUMMARY | 2022-03-17 16:39 | XMS_ITS | Encounter Summary ---
:1935 Author Organization [facility] Care Address [facility] [phone] [place] [address] Care Team Providers Name Role Phone Unavailable Primary Care Provider Unavailable Encounter Details Date Type Department Care Team Description 03/07/2020 [facility] Oncology and Migdalia Sorenson MD Hematology [address] [facility] [address] [facility] [address] [place] [address] [place] [address] [phone] Social History Tobacco Use Types Packs/Day Years [...] Mass Index 24.2 03/07/2020 12:05 PM EDT documented in this encounter Progress Notes Mirta Sorenson MD - 03/07/2020 12:05 PM EDT [facility] Oncology The patient was seen in-person for this encounter. TALITA VELASCO was seen today for follow up. 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 Treatment: Observation ECOG Performance Status: 1/4 Patient receiving Oral Antineoplastic Therapy? No Advanced Directive? not discussed History of Present Illness: Patient is 85 years old; she is not accompanied by her ;since her last visit, she continues to do reasonably well with increasing limitations from heart disease; In 2018- [place]- details requested; No family member has been diagnosed with any form of cancer in the past year; she is more limited in her function compared to previously- mostly shortness of breath with exertion; In August 2016, she was diagnosed with atrial fibrillation and remains on Eliquis; she continues to have shortness of breath with inclines; She had a wonderful [place] to the [facility] in 2016; She went to to [facility] in 2014. Previously she had a left ankle fracture which needed internal fixation in July 2013 while traveling from [place] to [place]; She was previously seen by Dr. 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 She now has a primary care and pulmonary physician at [place], [place] . 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 She has no tinnitus, deafness or vertigo; she denies any problems swallowing. She has no angina or palpitations, dizziness or diaphoresis; she has no shortness of breath at rest and on mild exertion; persistent shortness of breath with climbing inclines--less functional in the garden; she continues to note a persistent cough without sputum production-- stable; she has no hemoptysis or hematemesis; She [...] functionality; Ankle pain and stiffness has resolved ; Current Medications: IMITREX 50 MG ORAL TABLET [...] Please provide one pair of thigh-high compression [id number]-71-86 mm mercury VITAMIN C CAPSULE (ASCORBIC ACID CAPS) 1000u once daily ELIQUIS 5 MG ORAL TABLET (APIXABAN) take 1 tab twice a day; Route: ORAL TRELEGY ELLIPTA AEROSOL POWDER BREATH ACTIVATED ([id number] AEPB) once a day LOSARTAN POTASSIUM 50 MG ORAL TABLET (LOSARTAN POTASSIUM) 2 tabs daily; Route: ORAL METOPROLOL SUCCINATE ER 50 MG ORAL TABLET EXTENDED RELEASE 24 HOUR (METOPROLOL SUCCINATE) 2 tabs by mouth in the morning and 1 tab by mouth in the evening; Route: ORAL FLECAINIDE ACETATE 50 MG ORAL TABLET (FLECAINIDE ACETATE) 2 tabs daily; Route: ORAL AMLODIPINE-ATORVASTATIN 5-10 MG ORAL TABLET (AMLODIPINE-ATORVASTATIN) 5mg tab daily; Route: ORAL SPIRONOLACTONE 25 MG ORAL TABLET (SPIRONOLACTONE) 1 tab daily; Route: ORAL Vital Signs: Patient Profile: 85 Years Old Female Height: 63 inches (160.02 cm) Weight: 136.6 pounds (62.09 kg) BMI: 24.29 BSA: 1.65 O2 Sat: 97 % Temp: 97.6 degrees F (36.44 degrees C) tympanic Pulse rate: 66 / minute Resp: 20 per minute BP sittin / 76 (left arm) Cuff size: regular LMP N/A: post menopausal Patient in pain? no Vitals Taken By: Shellie Lyle [facility], March 07, 2020 12:07 PM Tobacco use: never smoker Rooming Notes Medications and allergies were reviewed with the patient. The patient's weight at the last visit (03/09/2019) was 137.4 pounds. Today's weight is 136.6 pounds. This is a change of -0.80 pounds in 364 days. Patient has not been hospitalized since last visit. Signed by: Shellie Lyle [facility], March 07, 2020 12:19 PM Physical Exam General: BMI: 24.29- stable weight Head: Patient has no scalp abnormalities. Eyes: [...] Lymph Nodes: . Psych: . Other: . Impression & Recommendations: Problem #1: RENAL CELL CANCER ([id number]) Complete Medication List: IMITREX 50 MG ORAL [...] Please provide one pair of thigh-high compression [id number]-32-31 mm mercury VITAMIN C CAPSULE (ASCORBIC ACID CAPS) 1000u once daily ELIQUIS 5 MG ORAL TABLET (APIXABAN) take 1 tab twice a day; Route: ORAL TRELEGY ELLIPTA AEROSOL POWDER BREATH ACTIVATED ([id number] AEPB) once a day LOSARTAN POTASSIUM 50 MG ORAL TABLET (LOSARTAN POTASSIUM) 2 tabs daily; Route: ORAL METOPROLOL SUCCINATE ER 50 MG ORAL TABLET EXTENDED RELEASE 24 HOUR (METOPROLOL SUCCINATE) 2 tabs by mouth in the morning and 1 tab by mouth in the evening; Route: ORAL FLECAINIDE ACETATE 50 MG ORAL TABLET (FLECAINIDE [...] of the kidney; she returns for followup p.r.n.. I recommended no further reason for a nnual CT scans, unless she is symptomatic; She is now agreeable to returning p.r.n.;She is aware that she can call with any questions or concerns or symptoms; Lung nodules-patient has had a complete evaluation by Dr. Carter who recommended no further CT scans as the lesions have been stable since 2004. Followup with supervisor coremaker; She is aware that she can call me with any questions regarding kidney cancer or new symptoms. The patient has moved to [place], I again suggested that she switch her oncologic care to the [facility] at [facility].This recommendation still stands. I also previously recommended she review the moles with her primary care physician and consider biopsy or removal of both moles, especially the one on the shoulder; I did not discuss today. In view of the hypertension and the presence of a solitary kidney, with sudden worsening of blood pressure control, Patient follows up with her PCP; As patient receives all her primary care in [place]-primary care issues like screening, vaccination and health maintenance issues are deferred to her PCP; Patient Instructions: Return for follow-up if needed It has been 15 years since original diagnosis-please continue to be vigilant for symptoms-blood in the urine, flank pain, weight loss, loss of appetite, fevers or any decline of your functionality Please continue to have annual exams, annual ultrasound of the kidney and blood work and urine analysis at least once a year; Please call for any questions, symptoms or concerns Copy to: PCP: Uyen Gerard MD documented in this encounter Plan of Treatment Upcoming Encounters Date Type Specialty Care Team Description 03/26/2022 Eye Care Visit Ophthalmology Gladys England MD [address] [place] [address] (Wo rk) documented as of this encounter Visit Diagnoses Not on filedocumented in this encounter
--- OUTSIDE RECORDS SUMMARY | 2022-03-17 16:39 | XMS_ITS | Encounter Summary ---
:1935 Author Organization [facility]: [facility] Address [facility] [phone] [place] [address] Care Team Providers Name Role Phone Unavailable Primary Care Provider Unavailable Encounter Details Date Type Department Care Team Description 02/21/2014 Hospital Encounter [facility] Specimen Drop Off [address] [place] [address] Social History Tobacco Use Types Packs/Day Years Used Date Never Assessed Sex Assigned at Date Recorded Not on file documented as of this encounter Plan of Treatment Upcoming Encounters Date Type Specialty Care Team Description 03/26/2022 Eye Care Visit Ophthalmology Gladys England MD [address] [place] [address] (Wo rk) documented as of this encounter Visit Diagnoses Not on filedocumented in this encounter
--- OUTSIDE RECORDS SUMMARY | 2022-03-17 16:39 | XMS_ITS | Encounter Summary ---
:1935 Author Organization [facility] [place] [address] Care Team Providers Name Role Phone Uyen Gerard MD Primary Care Provider Reason for Visit Consultation (Routine) - Closed Specialty Diagnoses / Procedures Referred By Contact Refer red To Contact Pulmonology Diagnoses Bronchiectasis, uncomplicated Chronic obstructive pulmonary disease, unspecified Uyen Gerard [place] [facility] [place] [facility] [address] [id number] Referral ID Status Reason Start Date Expiration Date Visits V isits Requested Authorized [id number] Closed Consult, Test 11/19/2020 05/18/2021 [facility] PCP Updated and/or Approved Encounter Details Date Type Department Care Team Description 05/08/2021 Office Visit Pulmonology at [facility] Carmelina Gonzalez MD Interstitial lung disease; [facility] [place] [phone] PULMONARY [phone] MEDICINE [place], [place] [address] Social History Tobacco Use Types Packs/Day Years Used Date Never Smoker Smokeless Tobacco: Never Used Alcohol Use Standard Drinks/Week Comments Yes 7 (1 standard drink = 0.6 oz pure alcoho l) Sex Assigned at Date Recorded Female 03/31/2021 2:10 PM EDT documented as of this encounter Last Filed Vital Signs Vital Sign Reading Time Taken Comments Blood Pressure 146/61 05/08/2021 11:32 AM EDT Pulse 71 05/08/2021 11:32 AM EDT Temperature 36.4 ??C (97.5 ??F) 05/08/2021 11:32 AM EDT Respiratory Rate 24 05/08/2021 11:32 AM EDT Oxygen Saturation 99% 05/08/2021 11:32 AM EDT Inhaled Oxygen Concentration - - Weight 61.2 kg (134 lb 14.7 oz) 05/08/2021 11:32 AM EDT Height 162.6 cm (5' 4) 05/08/2021 11:32 AM EDT Body Mass Index 23.16 05/08/2021 11:32 AM EDT documented in this encounter Progress Notes Carmelina Gonzalez MD - 05/08/2021 12:00 PM EDT Images from the original note were not included. [facility] Section of Pulmonary and Critical Care Medicine Outpatient Consultation Date of Encounter: 05/08/2021 Reason for Evaluation: I was asked by Uyen Gerard MD to evaluate Jerri Velasco for dyspnea on exertion. I independently interviewed and examined the patient in the office and have reviewed available records. History of Present Illness: Jerri Velasco is [...] swelling or redness, skin rash, or GERD. Past Medical and Surgical History: Past Medical History: Diagnosis Date ??? COPD (chronic obstructive pulmonary disease) 06/02/2011 ??? Hypertension 06/02/2011 ??? 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 Rash ??? Renal cell cancer 06/02/2011 Past Surgical History: Procedure Laterality Date ??? ANKLE SURGERY 2014 ice injury ??? TONSILLECTOMY ??? TOTAL NEPHRECTOMY [address] White, right. No chemo, No xrt. Family History: Family History Problem (# of Occurrences) Relation (Name,Age of Onset) Hypertension (1) Mother Migraines (1) Daughter Myocardial Infarction (1) Paternal Grandmother Rheumatoid Arthritis (1) Maternal Grandmother Stroke (1) Mother: mini Thyroid Disease (1) Daughter Social and Occupational History: Social History Socioeconomic History ??? Marital status: Spouse name: None ??? Number of children: None ??? Years of education: None ??? Highest education level: None Occupational History ??? None Tobacco Use ??? Smoking status: Never Smoker ??? Smokeless tobacco: Never Used Vaping Use ??? Vaping Use: Never used Substance and Sexual Activity ??? Alcohol use: Yes Alcohol/week: 7.0 standard drinks Types: 7 Glasses of wine per week ??? Drug use: No ??? Sexual activity: None Other Topics Concern ??? 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 Pt lives with her in a home. Pt is retired from [employer] , no pets Daughter college and career counselor, pediactrician. Son-in-law neurologist Daughter CCRN Daughter RN jr. systems administrator As child exposed to school friend who had Tb who did from Tb as a child. Social Determinants of Health Financial Resource Strain: ??? Difficulty of Paying Living Expenses: Not on file Food Insecurity: ??? Worried About Running Out of Food in the Last Year: Not on file ??? Ran Out of Food in the Last Year: Not on file Transportation Needs: ??? Lack of Transportation (Medical): Not on file ??? Lack of Transportation (Non-Medical): Not on file Physical Activity: ??? Days of Exercise per Week: Not on file ??? Minutes of Exercise per Session: Not on file Current Medications: Current Outpatient Medications on File [...] as needed. ??? DOCUSATE SODIUM (COLACE ORAL) ??? [DISCONTINUED] Cod Liver Oil Cap No current facility-administered medications on file prior [...] I personally reviewed her CT scan from today which showed some interstitial thickening withmore diffuse tree in bud opacities. There were two moderate sized pleural based nodules which are new. SPIROMETRY: PFT Results Office Visit from 03/31/2014 in Pulmonology at [facility] Office Visit from 09/16/2013 in Pulmonology at [facility] Office Visit from 03/11/2013 in Pulmonology at [facility] PFT Results Peak Flow 300 L/min 275 [...] 02/24/2019 Impression / Plan of Care: Jerri Velasco is a delightful 86 year old woman with progressive exertional dyspnea. She has had spirometry locally and the reports show mild airflow obstruction but the actual test was not available for my review. Her CT scan from today shows progression on an inflammatory process compared to past imaging Although the etiology is not clear, the imaging abnormalities appear to be secondary from an infectious or inflammatory process. Potential etiologies include atypical infections such as MAC, fungal infection, or autoimmune process. I would like to see her back quicklyafter obtaining labs to assess for an autoimmune process and repeat PFTs including lung volumes. Once those tests are complete, we can discuss the plan for further evaluation which will likely include a bronchoscopy to assess for infectious etiologies. The pleural based nodules appear to be inflammatory and are likely secondary to the same process as the other findings. However, she has an asbestos exposure so we will certainly plan on following up with imaging in 3 months to assess for interval change. CARMELINA GONZALEZ MD 05/08/2021 1:38 PM documented in this encounter Plan of Treatment Not on filedocumented as of this encounter Procedures Procedure Name Priority Date/Time Associated Diagnosis Comme nts HC VENIPUNCTURE Routine 05/08/2021 1:02 PM Interstitial lung R esults for this EDT disease procedure are i n the results section. HC PCH ANTI RO Routine 05/08/2021 1:02 PM Interstitial lung Re sults for this EDT disease procedure are i n the results section. HC IGE, TOTAL Routine 05/08/2021 1:02 PM Interstitial lung Res ults for this EDT disease procedure are i n the results section. HC CYCLIC CITRULLINE Routine 05/08/2021 1:02 PM Interstitial l nina Results for this PEPTIDE EDT disease procedure are i n the results section. HC RHEUMATOID FACTOR Routine 05/08/2021 1:02 PM Interstitial l nina Results for this EDT disease procedure are i n the results section. HC PCH ANATITRE Routine 05/08/2021 1:02 PM Interstitial lung R esults for this (ANDPATTERN) EDT disease procedure are i n the results section. documented in this encounter Results Pulmonary Function Testing (05/29/2021 1:39 PM EDT) P athologist Signature FVC Actual 1.85 L [facility]AS PFT Pre-BD FVC Pre-BD % of 80 % COMPAS PFT Predicted FVC Predicted 2.32 L COMPAS PFT FVC Pre-BD -1.05 COMPAS PFT Z-Score FVC Lower 1.60 L COMPAS PFT Limits of Normal FEV1 Actual 1.21 L COMPAS PFT Pre-BD FEV1 Pre-BD % 69 % COMPAS PFT of Predicted FEV1 Predicted 1.75 L COMPAS PFT FEV1 Pre-BD -1.63 COMPAS PFT Z-Score FEV1 Lower 1.21 L COMPAS PFT Limits of Normal FEV1 / FVC 65 % COMPAS PFT Actual Pre-BD FEV1/FVC Pre-BD -1.31 COMPAS PFT Z-Score FEV1 / FVC LLN 61 % COMPAS PFT [id number] Actual 0.54 L/s COMPAS PFT Pre-BD [id number] Pre-BD 39 % COMPAS PFT % of Predicted [id number] 1.40 L/s COMPAS PFT Predicted [id number] Pre-BD -1.69 COMPAS PFT Z-Score DLCO Hb Actual 12.18 mL/min/mmHg COMPAS PFT Pre-BD DLCO Hb Pre-BD 69 % COMPAS PFT % of Predicted DLCO Hb Pre-BD -2.09 COMPAS PFT Z-Score DLCO Hb 17.77 mL/min/mmHg COMPAS PFT Predicted DLCO UNC ACT 12.18 mL/min/mmHg COMPAS PFT PRE-BD DLCO UNC PRE-BD 69 % COMPAS PFT % of PRED DLCO UNC PRE-BD -2.09 % COMPAS PFT Z-SCORE DLCO UNC 17.77 mL/min/mmHg COMPAS PFT Predicted DLCO/VA Actual 3.41 mL/min/mmHg COMPAS PFT Pre-BD /L DLCO/VA Pre-BD 83 % COMPAS PFT % of Predicted DLCO/VA Pre-BD -1.12 COMPAS PFT Z-Score DLCO/VA 4.12 mL/min/mmHg COMPAS PFT Predicted /L FRC Predicted 2.65 L COMPAS PFT FRC Actual 3.34 L COMPAS PFT Pre-BD FRC Pre-BD % of 126 % COMPAS PFT Predicted FRC Pre-BD 1.38 COMPAS PFT Z-Score TLC Predicted 4.73 L COMPAS PFT TLC Actual 4.90 L COMPAS PFT Pre-BD TLC Pre-BD % of 104 % COMPAS PFT Predicted TLC Pre-BD 0.28 COMPAS PFT Z-Score RV Predicted 2.24 L COMPAS PFT RV Actual 3.03 L COMPAS PFT Pre-BD RV Pre-BD % of 135 % COMPAS PFT Predicted RV Pre-BD 2.26 COMPAS PFT Z-Score RVoTLC 48 % COMPAS PFT Predicted RVoTLC Actual 62 % COMPAS PFT Pre-BD RVoTLC Pre-BD % 129 % COMPAS PFT of Predicted RVoTLC Pre-BD 2.40 COMPAS PFT Z-Score VC Predicted 2.32 L COMPAS PFT VC Actual 1.87 L COMPAS PFT Pre-BD VC Pre-BD % of 81 % COMPAS PFT Predicted VC Pre-BD -0.99 COMPAS PFT Z-Score Specimen (Source) Anatomical Location Collection Method / Collectio n Time Received Time / Laterality Volume Narrative COMPAS PFT - 05/29/2021 1:39 PM EDT FINDINGS: FEV1, FVC, and FEV1/VC are within normal limits. TLC is normal and RV/TLC is increased. Diffusion capacity not adjust ed for hemoglobin is reduced. Resting oxyhemoglobin saturation was normal while breathing ro om air. Oxyhemoglobin saturation during ambulation was normal while breathing room air. IMPRESS ION: Normal spirometry. Lung volumes indicate normal total lung capacity, but there is eviden ce of air trapping. Mild reduction in diffusing capacity (DLCO > 60% and < lower limit o f normal). Isolated reduced DLCO suggests the possibility of disease of the pulmonary vasculature, early emphysema, early interstitial disease, anemia, or carboxyhemoglobinemi a/heavy tobacco smoking. Normal resting and ambulatory oximetry. Procedure Note Mj Carpenter MD - 05/30/2021Formatt ing of this note might be different from the original. FINDINGS: FEV1, FVC, and FEV1/VC are wit hin normal limits. TLC is normal and RV/TLC is increased. Diffusion capacity not adjust ed for hemoglobin is reduced. Resting oxyhemoglobin saturation was normal while breathing ro om air. Oxyhemoglobin saturation during ambulation was normal while breathing room air. IMPRESS ION: Normal spirometry. Lung volumes indicate normal total lung capacity, but there is eviden ce of air trapping. Mild reduction in diffusing capacity (DLCO > 60% and < lower limit o f normal). Isolated reduced DLCO suggests the possibility of disease of the pulmonary vasculature, early emphysema, early interstitial disease, anemia, or carboxyhemoglobinemi a/heavy tobacco smoking. Normal resting and ambulatory oximetry. Carmelina Gonzalez MD PFT ORDERABLES Performing Organization Address City/State/ZIP Code Phon e Number COMPAS PFT SS-B/La Antibody (05/08/2021 1:02 PM EDT) P athologist Signature SS-B/La Ab <0.2 <1.0 [facility] ([facility] Comment: Test Performed by: [facility] [address] [address] Engineer Systems: Ming Knight M.D. Ph. D.; CLIA# [id number] Specimen Anatomical Collection Method Collection Time Receive d Time (Source) Location / / Volume Laterality Blood 05/08/2021 1:02 PM 1:39 EDT PM EDT Resulting Agency Comment Spec In Lab Carmelina Gonzalez MD IMMUNOLOGY ORDERABLES Performing Organization Address City/State/[place] [address] SS-A/Ro Antibody (05/08/2021 1:02 PM EDT) athologist [facility] SS-A/Ro Ab <0.2 <1.0 [facility] (Negative) [facility] Comment: Test Performed by: [facility] [address] , [place], [place] [address] Engineer Systems: Ming Knight M.D. Ph. D.; CLIA# [id number] Specimen Anatomical Collection Method Collection Time Receive d Time (Source) Location / / Volume Laterality Blood 05/08/2021 1:02 PM 1 1:39 EDT PM EDT Resulting Agency Comment Spec In Lab Carmelina Gonzalez MD IMMUNOLOGY ORDERABLES Performing Organization Address City/[facility]/ZIP Code Phon e Number [address] Immunoglobulin E (IgE) (05/08/2021 1:02 PM EDT) athologist [facility] IgE 9 <=101 kU/L [facility] Comment: Pediatric age-specific reference ranges are reflected in result ranges. Adult reference ranges: <25 kU/L ??Normal 25-100 kU/L Equivocal >100 kU/L ??Elevated Specimen Anatomical Collection Method Collection Time Receive d Time (Source) Location / / Volume Laterality Blood 05/08/2021 1:02 PM 1 2:52 EDT PM EDT Resulting Agency Comment Spec In Lab Carmelina Gonzalez MD IMMUNOLOGY ORDERABLES Performing Organization Address City/[facility] Phon e Number [address] Cyclic Citrullinated Peptide (05/08/2021 1:02 PM EDT) athologist [facility] Anti-Cyc Cit <8.0 <=16.9 [facility] Peptide unit/mL [facility] Comment: Please note that due to a change in test format on 02/21/2021, the reference interval for this test has been updated and values greater than or equal to 17 U/mL are considered positive for the pre sence of anti-CCP antibodies. Specimen Anatomical Collection Method Collection Time Receive d Time (Source) Location / / Volume Laterality Blood 05/08/2021 1:02 PM 1 1:10 EDT PM EDT Resulting Agency Comment Spec In Lab Carmelina Gonzalez MD CHEMISTRY ORDERABLES Performing Organization Address City/State/[place] [address] Rheumatoid factor, quant (05/08/2021 1:02 PM EDT) P athologist Signature RF 14 <=14 IU/mL [facility] Specimen Anatomical Collection Method Collection Time Receive d Time (Source) Location / / Volume Laterality Blood 05/08/2021 1:02 PM 1 1:10 EDT PM EDT Resulting Agency Comment Spec In Lab Carmelina Gonzalez MD IMMUNOLOGY ORDERABLES Performing Organization Address City/[facility]/ZIP Code Phon e Number [address] (ABNORMAL) CADEN (05/08/2021 1:02 PM EDT) Component Value Ref Test Analysis Performed At Patholo gist Range Method Time Signature Antinuclear Ab JUAN MANUEL Test ?Result ? Flag ??Unit ??RefValue [facility] Antinuclear Ab, HEp-2 Substr ate, ?Positive 1:160 ??@ ?<1:80 (Negative) HOSPITAL ??S LABORATORY ? ADDITIONAL INFORMATION ------ ?Method: Immunofluorescence using HEp-2 cellular substr ate. ??CADEN Titer: ?1:160 ??CADEN Pattern: ?Speckled ?Test Performed by: ?[facility] [address] ?[address] [place] [address] ?Engineer Systems: Ming Knight M.D. Ph.D.; CLIA# [id number] (A) Specimen Anatomical Collection Method Collection Time Receive d Time (Source) Location / / Volume Laterality Blood 05/08/2021 1:02 PM 1:39 EDT PM EDT Resulting Agency Comment Spec In Lab Carmelina Gonzalez MD IMMUNOLOGY ORDERABLES Performing Organization Address City/State/[place] [address] documented in this encounter Visit Diagnoses Diagnosis Interstitial lung disease Postinflammatory pulmonary fibrosis Pleural nodules Swelling, mass, or lump in chest Interstitial lung disease Postinflammatory pulmonary fibrosis documented in this encounter Care Teams Machine Or Machinery Mechanic Relationship Specialty Start Date End Date Uyen Gerard MD PCP - General 07/01/13 [address] [place] [address] documented as of this encounter
--- OUTSIDE RECORDS SUMMARY | 2022-03-17 16:39 | XMS_ITS | Encounter Summary ---
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 Encounter Details Date Type Department Care Team Description 12/17/2021 [facility] Visit [facility] Gladys England oliative glaucoma, both eyes, moderate stage (Primary Dx); Center Shawna Moyer MD Combined form of senile cataract of both eyes [address] [place] [phone] Social History Tobacco Use Types Packs/Day Years Used Date Never Smoker Smokeless Tobacco: Never Used Alcohol Use Standard Drinks/Week Comments Yes 0 (1 standard drink = 0.6 oz pure alcoho l) Sex Assigned at Date Recorded Not on file documented as of this encounter Patient Instructions Patient InstructionsGladys England MD - 12/17/2021 8:30 AM EDT Medications - Xalatan, both eyes at bedtime - Increase Alphagan P 0.1%, both eyes 2x daily documented in this encounter Progress Notes Gladys England MD - 12/17/2021 8:30 AM EDT Chief Complaint: Patient presents with: Follow-Up: Pseudoexfoliative Glaucoma, 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 Patient states that she is doing well with the new drop. She is having help putting them in from her . Her vision has remained stable since her last exam. Medications - Xalatan, both eyes at bedtime - Alphagan P 0.1%, left eye only 2x daily Patient oriented to person, place and time: Yes Mood and affect: NORMAL General Medical Appearance: NORMAL Pupillary dilation: None ( ) Baselines Right Left Highest IOP 20s? mmHg 20s? mmHg Pachymetry 526 ?? 547 ?? Gonioscopy Gonioscopy performed in 11/26/21 Right: Open to CBB in all quadrants. Moderate pigmentation. No synechiae. Left: Open to CBB in all quadrants. Heavy pigmentation. There is a Sampoelesi line OCT Spectralis: 68 ?? (Q = 23) Spectralis: 66 ?? (Q = 25) Target Pressure ? 14-16mmHg ? 14-16mmHg Examination Right Left Visual Acuity 20/40-2 20/30-2 Pinhole Vision 20/40-2+1 20/ni Intraocular Pressure 17 mmHg 12 mmHg External The pupils are normal (no APD). The lids and ocular adnexa are normal. Ocular motility is full. Anterior Segments Both eyes have trace injection. Left eye has central SPK. The conjunctivae and corneae are normal. The anterior chambers are deep. The irides are normal. Lens 2+NS/CC 2+NS/CC - PXE on anterior capsule and pupil margin Vitreous Normal Normal Optic Nerve Cupping is estimated at 80% thinning to the rim inferiorly. No disk heme Cupping is estimated at 85% loss of inferior rim Retina Normal Normal OCT RNFL (11-26-21) Spectralis: 68 ?? (Q = 23) - Baseline - moderate nasal and ST thinning with severe IT thinning Spectralis: 66 ?? (Q = 25) - Baseline - Moderate temporal thinning OCT RGCL (11-26-21) RGCL volume = 0.83 mm3 - Baseline - Inferotemporal loss RGCL volume = 0.68 mm3 -Baseline - Inferior loss Visual [place]ham (11-26-21) TRUNG 24-2: 11/11FLs, superior arcuate depression - Baseline MD-3.74 2/14FLs, dense superior arcuate nearly altitudinal defect - Baseline. MD-13.01 Pachymetry ? Confrontation VF Full (ST and SN HM only, otherwise full) Impression: 1. 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 IOP is excellent since starting Alphagan. There is an 8 mmHg reduction in the left eye. We will add Alphagan to both eyes now due to initial response. - No family hx - Avg CCT - Hx of COPD, avoid beta-blockers 2. Bilateral cataracts Disposition: 1. We discussed the natural history of glaucoma and the risk factors as above, including both the disease and treatment options. Jerri Velasco elected to start additional drops as a result. Glaucoma is a chronic progressive condition that we do not cure, and therefore it needs to be monitored to ensure that our treatment of it is adequate, as in some cases it causes severe vision loss. 2. Medications - Xalatan, both eyes at bedtime - Increase Alphagan P 0.1%, both eyes 2x daily 3. Follow up with me in 3 months for IOP check and Optos/fundus photo OCT Notes to: -Yamileth Singh, OD Performed and dictated by Dr. Gladys England to scribe Roe Jin No annotated images are attached to the encounter. documented in this encounter Plan of Treatment Upcoming Encounters Date Type Specialty Care Team Description 03/26/2022 Eye Care Visit Ophthalmology Gladys England MD [address] [place], [place] [address] (Wo rk) documented as of this encounter Visit Diagnoses Diagnosis Pseudoexfoliative glaucoma, both eyes, m oderate stage - Primary Combined form of senile cataract of both eyes documented in this encounter Care Teams Brigadier Relationship Specialty Start Date End Date Uyen Gerard MD PCP - General Family Medicine 08/27/21 [facility] [address] documented as of this encounter
--- OUTSIDE RECORDS SUMMARY | 2022-03-17 16:39 | XMS_ITS | Encounter Summary ---
:1935 Author [facility] Address [facility] [phone] [place] [address] Care Team Providers Name Role Phone Uyen Gerard MD Primary Care Provider Encounter Details Date Type Department Care Team Description 11/27/2021 [facility] [place] Gladys England, Sent notes via right fax [address] [place] [address] ANTHONY for date [place], [place] [address] of service 11/26/21 . [phone] [place], [place] [phone] Social History Tobacco Use Types Packs/Day Years Used Date Never Smoker Smokeless Tobacco: Never Used Alcohol Use Standard Drinks/Week Comments Yes 0 (1 standard drink = 0.6 oz pure alcoho l) Sex Assigned at Date Recorded Not on file documented as of this encounter Progress Notes Janny Porter - 11/27/2021 8:34 AM EDT Sent notes via right fax to Dr. ANTHONY for date of service 11/26/21 . documented in this encounter Plan of Treatment Upcoming Encounters Date Type Specialty Care Team Description 03/26/2022 Eye Care Visit Ophthalmology Gladys England MD [address] [place], [place] [address] (Wo rk) documented as of this encounter Visit Diagnoses Not on filedocumented in this encounter Care Teams Electrical Design Technologist Relationship Specialty Start Date End Date Uyen Gerard MD PCP - General Family Medicine 08/27/21 [address] [facility] [address] documented as of this encounter
--- OUTSIDE RECORDS SUMMARY | 2022-03-17 16:39 | XMS_ITS | Encounter Summary ---
:1935 [facility] Address [facility] [phone] [place] [address] Care Team Providers Name Role Phone Unavailable Primary Care Provider Unavailable Encounter Details Date Type Department Care Team Description 01/09/2017 Hospital Encounter [facility] Laboratory Ser vices [address] [place] [address] Social History Tobacco Use Types Packs/Day Years Used Date Never Assessed Sex Assigned at Date Recorded Not on file documented as of this encounter Plan of Treatment Upcoming Encounters Date Type Specialty Care Team Description 03/26/2022 Eye Care Visit Ophthalmology Gladys England MD [address] [place] [phone] (Wo rk) documented as of this encounter Visit Diagnoses Not on filedocumented in this encounter
--- OUTSIDE RECORDS SUMMARY | 2022-03-17 16:39 | XMS_ITS | Clinical Summary ---
:1935 Author Organization [facility] [place] [address] Care Team Providers Name Role Phone Uyen Gerard MD Primary Care Provider Allergies Active Allergy Reactions Severity Noted Date Comments Codeine Phosphate Medications Medication Sig Dispensed Refills Start Date End Date Status DOCUSATE SODIUM (COLACE 0 01/02/2009 Active ORAL) SUMAtriptan (Imitrex) Take 50 mg by 0 Active 25 mg Tablet mouth as needed. Calcium 500 mg Tab Take 1 tablet by 0 Active mouth 2 times daily. atorvastatin (LIPITOR) Take 10 mg by 0 Active 10 mg tablet mouth daily. cholecalciferol, Take 1,000 Units 0 Active Vitamin D3, 25 mcg by mouth daily. (1,000 unit) Capsule amLODIPine (NORVASC) 5 Take 5 mg by 0 Active mg Tablet mouth daily. losartan (COZAAR) 50 mg Take 100 mg by 0 Active Tablet mouth nightly. ascorbic acid, vitamin Take by mouth 0 Active C, (VITAMIN C) 1,000 mg daily. Tablet flecainide (TAMBOCOR) Take 50 mg by 0 Active 50 mg Tablet mouth 2 times daily. levalbuterol (XOPENEX Inhale 1-2 puffs 0 Active HFA) 45 mcg/actuation into the lungs HFA Aerosol Inhaler every 4 hours as needed. apixaban (Eliquis) 5 mg Take 5 mg by 0 Active Tablet mouth 2 times daily. metoprolol succinate XL Take by mouth. 75 0 Active (Toprol-XL) 50 mg MG-AM, 50 MG-PM Tablet Sustained Release 24 hr fluticasone/umeclidin/v Inhale into the 0 Active ilanter (TRELEGY lungs daily. ELLIPTA INHL) omega-3 fatty Take by mouth 0 Ac tive acids/fish oil (OMEGA 3 daily. FISH OIL ORAL) Alphagan P 0.1 % Drops Place into both 0 01/28/2022 Active eyes 2 times daily. doxycycline TAKE 1 TABLET BY 0 02/09/2022 Active (VIBRA-TABS) 100 mg MOUTH TWO TIMES A Tablet DAY FOR 5 DAYS latanoprost (Xalatan) Place 1 drop into 0 12/17/2021 Active 0.005 % Drops both eyes nightly. levalbuteroL (Xopenex) INHALE THE 0 02/10/2022 Active 0.63 mg/3 mL Solution CONTENTS OF ONE for Nebulization VIAL VIA NEBULIZER THREE TIMES A DAY predniSONE (Deltasone) Take 40 mg by 0 02/09/2022 Active 20 mg Tablet mouth daily. spironolactone TAKE 1 TABLET 90 tablet 3 03/17/2022 Active (Aldactone) 25 mg DAILY TabletIndications: Essential hypertension Active Problems Problem Noted Date Stucco keratosis 01/02/2015 Seborrheic keratosis 01/02/2015 Dermal nevus of other site 01/02/2015 Solar lentigo 01/02/2015 Hypertension 06/02/2011 Renal cell cancer 06/02/2011 COPD (chronic obstructive pulmonary disease) 1 Encounters Date Type Specialty Care Team Description 03/17/2022 Refill NephManuel Muse Essential hyp ertension 03/06/2022 Notes Only Manuel Argueta MD 02/14/2022 Office Visit NephManuel Muse, Hyponatremia; Stage 3a chroni c kidney disease; COPD exacerbati on; Leukocytosis, u nspecified type; Hypertension, u nspecified type 02/14/2022 Laboratory Appointment Lab Chron ic kidney disease, unspecified CKD stage; Vitamin D defic iency 02/12/2022 Orders Only Manuel Argueta, Chronic kidne y disease, unspecified CKD stage; Vitamin D defic iency 12/16/2021 Refill NephManuel Muse Essential hyp ertension from Last 3 Months Immunizations Name Administration Dates Next Due Influenza PF, Split 06/17/2012, 06/03/2011, 07/22/2002, 07/28/2001 Influenza Vaccine, Split Virus 06/19/2004, 07/12/2003 (incl. Purified surface Antigen) Family History Medical History Relation Comments Migraines Daughter Thyroid Disease Daughter Rheumatoid Arthritis Maternal Grandmother Hypertension Mother Stroke Mother mini Myocardial Infarction Paternal Grandmother Relation Status Comments Daughter Maternal Grandmother Mother Paternal Grandmother Social History Tobacco Use Types Packs/Day Years Used Date Never Smoker Smokeless Tobacco: Never Used Alcohol Use Standard Drinks/Week Comments Yes 7 (1 standard drink = 0.6 oz pure alcoho l) Sex Assigned at Date Recorded Female 03/31/2021 2:10 PM EDT Last Filed Vital Signs Vital Sign Reading Time Taken Comments Blood Pressure 167/70 02/14/2022 9:16 AM EDT Pulse 70 02/14/2022 9:16 AM EDT Temperature 36.4 ??C (97.5 ??F) 05/08/2021 11:32 AM EDT Respiratory Rate 24 05/08/2021 11:32 AM EDT Oxygen Saturation 99% 05/08/2021 11:32 AM EDT Inhaled Oxygen Concentration - - Weight 58.5 kg (129 lb) 02/14/2022 9:16 AM EDT Height 162.6 cm (5' 4) 02/14/2022 9:16 AM EDT Body Mass Index 22.14 02/14/2022 9:16 AM EDT Plan of Treatment Health Maintenance Due Date Last Done Comments Covid-19 Vaccine (#1) 1940 Pneumoccocal Vaccine: 65+ (1 - 1943 PCV) Tdap adult 01/15/1956 Tetanus vaccine 01/15/1956 Zoster vaccine (1 of 2) 1987 Advance Directive 01/15/1992 Bone Density Scan 2002 Influenza (Flu) vaccine (1 of 1 - 05/08/2022 06/17/2012, , Influenza standard series) 07/22/2002, Additiona l history exists Procedures Procedure Name Priority Date/Time Associated Diagnosis Comme nts LAB SCAN 03/17/2022 12:00 Results for this AM EDT procedure are i n the results section. LAB SCAN 02/25/2022 12:00 Results for this AM EDT procedure are i n the results section. HC CREATININE - NON Routine 02/14/2022 10:00 Hyponatremia Resu lts for this BLOOD AM EDT procedure are i n the results section. HC SODIUM, URINE Routine 02/14/2022 10:00 Hyponatremia Results for this AM EDT procedure are i n the results section. HC OSMOLALITY URINE Routine 02/14/2022 10:00 Hyponatremia Resu lts for this AM EDT procedure are i n the results section. SCAN, PERIPHERAL STAT 02/14/2022 8:55 AM Resul ts for this BLOOD EDT procedure are i n the results section. DIFFERENTIAL, STAT 02/14/2022 8:55 AM Chronic kidney Result s for this AUTOMATED EDT disease, unspecified procedu re are in CKD stage the results section. HEMOGRAM STAT 02/14/2022 8:55 AM Chronic kidney Results for this EDT disease, unspecified procedu re are in CKD stage the results section. BASIC METABOLIC PANEL STAT 02/14/2022 8:55 AM Chronic kidne y Results for this (NON-FASTING) EDT disease, unspecified proced ure are in CKD stage the results section. HC CBC,PLT & AUTO [...] in CKD stage the results section. HC PARATHYROID STAT 02/14/2022 8:55 AM Chronic kidney Resul ts for this HORMONE(PTH INTACT EDT disease, unspecified p rocedure are in CKD stage the results section. HC VITAMIN D TOTAL-25 STAT 02/14/2022 8:55 AM Vitamin D def iciency Results for this HYDROXY EDT procedure are i n the results section. HC VENIPUNCTURE STAT 02/14/2022 8:55 AM Chronic kidney Resu lts for this EDT disease, unspecified procedu re are in CKD stage the results section. from Last 3 Months Results SCAN DOC: LAB (03/17/2022 12:00 AM EDT)Only the most recent of2 resultswithin the time period is included. Narrative This result has an attachment that is no t available. Unknown MEDIA MGR SCAN EXT ORDR/RSLT U Albumin/Cre Ratio (02/14/2022 10:00 AM EDT) athologist Signature Alb/Cr Ratio, 21 0 - 29 [facility] Random mcg/mg Cr [facility] Comment: Reference Ranges: <30 mcg/mg: Normal [...] [facility] U Creatinine 44 mg/dL [facility] Specimen Anatomical Collection Method Collection Time Receive d Time (Source) Location / / Volume Laterality Urine 02/14/2022 10:00 02/14/2022 AM EDT 11:50 AM EDT Resulting Agency Comment Spec In Lab Manuel Shari Ricks MD URINE ORDERABLES Performing Organization Address City/State/[place] [address] Sodium, urine, random (02/14/2022 10:00 AM EDT) athologist Signature U Sodium 41 mmol/L [facility] Specimen Anatomical Collection Method Collection Time Receive d Time (Source) Location / / Volume Laterality Urine 02/14/2022 10:00 02/14/2022 AM EDT 11:50 AM EDT Resulting Agency Comment Spec In Lab Manuel A Millicent CAMARA URINE ORDERABLES Performing Organization Address City/[facility]/[place] [address] Osmolality, urine, random (02/14/2022 10:00 AM EDT) P athologist Signature U Osmolality 419 50 - 1,200 [facility] mOsm/kg [facility] Specimen Anatomical Collection Method Collection Time Receive d Time (Source) Location / / Volume Laterality Urine 02/14/2022 10:00 02/14/2022 AM EDT 11:50 AM EDT Resulting Agency Comment Spec In Lab Manuel Ricks MD URINE ORDERABLES Performing Organization Address City/State/ZIP Code Phon e Number [address] PTH (02/14/2022 8:55 AM EDT) P athologist Signature PTH 63 15 - 65 [facility] pg/mL [facility] Specimen Anatomical Collection Method Collection Time Receive d Time (Source) Location / / Volume Laterality Blood 02/14/2022 8:55 AM 2 9:03 EDT AM EDT Resulting Agency Comment Spec In Lab Manuel Ricks MD CHEMISTRY ORDERABLES Performing Organization Address City/State/ZIP Code Phon e Number [address] Scan, Peripheral Blood (02/14/2022 8:55 AM EDT) Patholo gist Method Time Signature Plat Estimate Increased [facility] RBC Morphology Abnormal [facility] Stippled RBCs Present >1/HPF [facility] Specimen Anatomical Collection Method Collection Time Receive d Time (Source) Location / / Volume Laterality Blood 02/14/2022 8:55 AM 2 9:03 EDT AM EDT Resulting Agency Comment Spec In Lab Manuel Ricks MD HEMATOLOGY ORDERABLES Performing Organization Address City/State/[place] [address] (ABNORMAL) Hemogram (02/14/2022 8:55 AM EDT) Analysis Performed At Patho logist Time Signature WBC 14.4 (H) 4.0 - 9.5 [facility] x10(3)/[facility] LABORATORY RBC 4.88 4.00 - JUAN MANUEL BENITOCK 5.21 [facility] x10(6)/[facility] LABORATORY Hemoglobin 14.6 11.7 - JUAN MANUEL AMANDA 15.5 g/dL [facility] Hematocrit 43.1 35.7 - [facility] 45.8 % [facility] MCV 88.3 82.6 - [facility] 94.4 [facility] LABORATORY MCH 29.9 27.1 - [facility] 32.0 pg [facility] MCHC 33.9 31.7 - [facility] 35.0 g/dL [facility] Platelets 400 (H) 145 - 357 [facility] x10(3)/[facility] LABORATORY RDWSD 41.4 37.0 - [facility] 46.0 [facility] LABORATORY RDWCV 12.8 11.5 - [facility] 14.1 % [facility] LAB[facility]ORY MPV 8.4 7.6 - 12.9 [facility] LABORATORY nRBC % Auto 0.0 % [facility] nRBC Abs Auto 0.000 0.000 - [facility] 0.000 [facility] x10(3)/[facility] LABORATORY Specimen Anatomical Collection Method Collection Time Receive d Time (Source) Location / / Volume Laterality Blood 02/14/2022 8:55 AM 9:03 EDT AM EDT Resulting Agency Comment Spec In Lab Manuel Ricks MD HEMATOLOGY ORDERABLES Performing Organization Address City/State/[place] [address] (ABNORMAL) Differential, Automated (02/14/2022 8:55 AM EDT) [facility] gist Method Time Signature Neutrophils % 74.1 % [facility] Neutr Abs (ANC) 10.66 (H) 1.70 - JUAN MANUEL PATEL 6.10 [facility] x10(3)/[facility] LABORATORY Lymphocytes % 8.5 % [facility] Lymphocytes Abs 1.2 0.9 - 3.2 [facility] x10(3)/[facility] LABORATORY Monocytes % 11.7 % [facility] Monocyte Abs 1.7 (H) 0.3 - 0.9 [facility] x10(3)/[facility] LABORATORY Eosinophils % 0.0 % [facility] Eosinophils Abs 0.0 0.0 - 0.4 [facility] x10(3)/[facility] LABORATORY Basophils % 0.1 % [facility] Basophils Abs 0.0 0.0 - 0.1 [facility] x10(3)/[facility] LABORATORY Immature Gran % 5.60 % [facility] Comment: Immature granulocytes(IG's)percentage an d absolute count will include metamyelocytes, myelocytes, and promyelo cytes. Blood smears from CBCs yielding IG's will be scanned manually for concor dance. If this scan disagrees with the automated IG or if promyelocytes are not ed, a manual differential will be performed. Miriam Gran Abs 0.80 (H) 0.00 - 0.04 x10(3)/[facility] LABORATORY Specimen Anatomical Collection Method Collection Time Receive d Time (Source) Location / / Volume Laterality Blood 02/14/2022 8:55 AM 2 9:03 EDT AM EDT Resulting Agency Comment Spec In Lab Manuel Ricks MD HEMATOLOGY ORDERABLES Performing Organization Address City/[facility]/[place] [address] Vitamin D, 25-Hydroxy (02/14/2022 8:55 AM EDT) [facility] Method Time Signature 25-OH Vit D 84 21 - 100 [facility] Total ng/mL [facility] 25-OH Vit D Sufficient [facility] LABORATORY Specimen Anatomical Collection Method Collection Time Receive d Time (Source) Location / / Volume Laterality Blood 02/14/2022 8:55 AM 2 9:03 EDT AM EDT Resulting Agency Comment Spec In Lab Manuel Ricks MD CHEMISTRY ORDERABLES Performing Organization Address City/[facility]/[place] [address] Phosphorus (02/14/2022 8:55 AM EDT) P athologist Signature Phosphorus 2.9 2.5 - 4.5 JUAN MANUEL AMANDA mg/dL [facility] Specimen Anatomical Collection Method Collection Time Receive d Time (Source) Location / / Volume Laterality Blood 02/14/2022 8:55 AM 2 9:03 EDT AM EDT Resulting Agency Comment Spec In Lab Manuel Ricks MD CHEMISTRY ORDERABLES Performing Organization Address City/State/[place] [address] Magnesium (02/14/2022 8:55 AM EDT) athologist Signature Magnesium 0.94 0.69 - 1.07 JUAN MANUEL AMANDA mmol/L [facility] Specimen Anatomical Collection Method Collection Time Receive d Time (Source) Location / / Volume Laterality Blood 02/14/2022 8:55 AM 2 9:03 EDT AM EDT Resulting Agency Comment Spec In Lab Manuel Ricks MD CHEMISTRY ORDERABLES Performing Organization Address City/State/[place] [address] Albumin Level (02/14/2022 8:55 AM EDT) P athologist Signature Albumin 4.2 3.2 - 5.2 JUAN MANUEL AMANDA g/dL [facility] Specimen Anatomical Collection Method Collection Time Receive d Time (Source) Location / / Volume Laterality Blood 02/14/2022 8:55 AM 2 9:03 EDT AM EDT Resulting Agency Comment Spec In Lab Manuel Shari Ricks MD CHEMISTRY ORDERABLES Performing Organization Address City/State/ZIP Code Phon e Number [address] (ABNORMAL) Basic Metabolic Panel (non-fasting) (02/14/2022 8:55 AM EDT) athologist Signature Glucose Lvl 94 65 - 199 JUAN MANUEL RUSTAMANDA mg/dL [facility] Comment: Diabetes: >=200 mg/dL plus symp toms BUN 29 (H) 8 - 18 mg/dL [facility] Creatinine 0.98 0.70 - 1.20 mg/dL [facility] LABORATORY Sodium 127 (L) 135 - 145 mmol/L [facility] Potassium 4.8 3.5 - 5.0 mmol/L [facility] Comment: Please note: ??Patients with WBC >100,00 0 may have falsely elevated Potassium levels. ??For accurate Potassium quantif ication in these patients send serum separator tube (gold top) for subsequent determinations. ??Contact the Clinical Chemistry Laboratory if there are any qu estions. Chloride 89 (L) 98 - 107 mmol/L [facility] CO2 30 22 - 31 mmol/L [facility] Anion Gap 8 5 - 15 mmol/L [facility] Calcium 9.6 8.5 - 10.5 mg/dL [facility] Estimated GFR 53 (L) >=60 mL/min/1.73 m?? [facility] Comment: This patient? s estimated [...] Organization Address City/State/[place] [address] from Last 3 Months Insurance Payer Benefit Plan / Subscriber ID Effective Dates Phone Addre ss Type Group MEDICARE MEDICARE PART [id number] 2002-[place]en [phone] [place] [phone] FOR FOR 2018-[place] [phone] [address] [employer] [address] [place] [address] Care Teams Tractor Operator Battery Relationship Specialty Start Date End Date Uyen Gerard MD PCP - General 07/01/13 [address] [facility] [address] [place] [address]
--- OUTSIDE RECORDS SUMMARY | 2022-03-17 16:39 | XMS_ITS | Encounter Summary ---
:1935 [facility] Address [facility] [phone] [place] [address] Care Team Providers Name Role Phone Uyen Gerard MD Primary Care Provider Reason for Visit Reason Onset Date Comments Referral 08/26/2021 Encounter Details Date Type Department Care Team Description 08/26/2021 Telephone [facility] Gladys England MD Referral [address] [place] [address] [place] [address] [phone] (Wo rk) Social History Tobacco Use Types Packs/Day Years Used Date Never Assessed Sex Assigned at Date Recorded Not on file documented as of this encounter Miscellaneous Notes Telephone Encounter - Pallavi Rosas Supervisor Asbestos Removal. - 08/27/2021 10:37 AM EST I called and scheduled patient for 11/[address] england in [place] elephone Encounter - Steph Rollins - 08/26/2021 3:07 PM EST Notes received from: Dr Lanier Referral for: glaucoma eval Notes scanned into media Please call patient to schedule appointment with Dr. England and update demographic information. documented in this encounter Plan of Treatment Upcoming Encounters Date Type Specialty Care Team Description 03/26/2022 Eye Care Visit Ophthalmology Gladys England MD [address] [place], [place] [address] (Wo rk) documented as of this encounter Visit Diagnoses Not on filedocumented in this encounter Care Teams Lamp Stack Developer Relationship Specialty Start Date End Date Uyen Gerard MD PCP - General Family Medicine 08/27/21 [address] [place] [address] documented as of this encounter
--- OUTSIDE RECORDS SUMMARY | 2022-03-17 16:39 | XMS_ITS | Encounter Summary ---
:1935 [facility] Address [facility] [phone] [place] [address] Care Team Providers Name Role Phone Unavailable Primary Care Provider Unavailable Encounter Details Date Type Department Care Team Description 12/15/2011 Hospital Encounter [facility] Laboratory Ser vices [address] [place] [address] Social History Tobacco Use Types Packs/Day Years Used Date Never Assessed Sex Assigned at Date Recorded Not on file documented as of this encounter Plan of Treatment Upcoming Encounters Date Type Specialty Care Team Description 03/26/2022 Eye Care Visit Ophthalmology Gladys England MD [address] [place] [phone] (Wo rk) documented as of this encounter Visit Diagnoses Not on filedocumented in this encounter
--- OUTSIDE RECORDS SUMMARY | 2022-03-17 16:39 | XMS_ITS | Encounter Summary ---
:1935 Author Organization [facility]: [facility] Address [facility] [phone] [place] [address] Care Team Providers Name Role Phone Unavailable Primary Care Provider Unavailable Encounter Details Date Type Department Care Team Description 08/07/2011 Hospital Encounter [facility] Laboratory Ser vices [address] [place] [address] Social History Tobacco Use Types Packs/Day Years Used Date Never Assessed Sex Assigned at Date Recorded Not on file documented as of this encounter Plan of Treatment Upcoming Encounters Date Type Specialty Care Team Description 03/26/2022 Eye Care Visit Ophthalmology Gladys England MD [address] [place] [phone] (Wo rk) documented as of this encounter Visit Diagnoses Not on filedocumented in this encounter
--- OUTSIDE RECORDS SUMMARY | 2022-03-17 16:39 | XMS_ITS | Encounter Summary ---
:1935 [facility] Address [facility] [phone] [place] [address] Care Team Providers Name Role Phone Uyen Gerard MD Primary Care Provider Reason for Visit Reason Comments Glaucoma Consult referred by Dr. Lizet thomas Encounter Details Date Type Department Care Team Description 11/26/2021 Eye Care Visit [facility] Gladys England oliative glaucoma, both eyes, moderate stage (Primary Dx); Center Shawna Moyer MD Combined form of senile cataract of both eyes [address] [place] [phone] Social History Tobacco Use Types Packs/Day Years Used Date Never Smoker Smokeless Tobacco: Never Used Alcohol Use Standard Drinks/Week Comments Yes 0 (1 standard drink = 0.6 oz pure alcoho l) Sex Assigned at Date Recorded Not on file documented as of this encounter Patient Instructions Patient InstructionsGladys England MD - 11/26/2021 2:20 PM EDT Medications - Xalatan, both eyes at bedtime - START Alphagan P 0.1%, left eye only 2x daily documented in this encounter Progress Notes Jolene Quezada, Watch Assembly Instructor. - 11/26/2021 2:20 PM EDT Patient reports she is using Latanoprost OU QPM. Patient reports she has been on those since September. Patient reports that her vision overall is okay. Patient reports when she reads a lot her vision gets blurry. She is able to see and drive. No prior eye surgery, laser, or trauma. General health is stable. Charanjit England MD - 11/26/2021 2:20 PM EDT Chief Complaint: Patient presents with: Glaucoma: Consult referred by Dr. Singh History of Present Illness: Patient presents in office for a glaucoma evaluation, referred by Dr. Singh. She was previously a patient of Dr. Orellana until he retired, then Dr Singh took over. She is aware that her worse eye is her left. 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 She denies previous eye surgeryor laser treatment. She reports blurry vision when she reads a lot, and she is able to see well enough to drive and stay independent. She reports stable general health. Her mother had AMD, no hx of blindness. No family hx of glaucoma. Patient oriented to person, place and time: Yes Mood and affect: NORMAL General Medical Appearance: NORMAL Pupillary dilation: Both (Tropicamide 1%) Baselines Right Left Highest IOP 20s? mmHg [...] ? 14-16mmHg Examination Right Left Visual Acuity 20/40 20/30-1 Pinhole Vision 20/25-2 20/25-1 Intraocular Pressure 18 mmHg 20 mmHg External The pupils are normal (no [...] nearly altitudinal defect - Baseline. MD-13.01 Pachymetry 526 Microns ?? 547 Microns ?? Confrontation VF Full Full Impression: 1. 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 IOPs do not seem to have fluctuated as wildly as PXG IOP's can, however significant damage has occurred and can be slowed down by IOP-lowering. Baseline OCT and VF testing is consistent with ONH exam today and shows worse damage in the left eye.Discussed further intervention options (adding gtts or laser). Patient notes that she would like to add drops rather than do laser at this time. We will start a monocular trial of Alphagan BID. - No family hx - Avg CCT - Hx of COPD, avoid beta-blockers 2. Bilateral cataracts Disposition: 1. We discussed the natural history of glaucoma and the risk factors as above, including both the disease and treatment options. Jerri Rod elected to start additional drops as a result. Glaucoma is a chronic progressive condition that we do not cure, and therefore it needs to be monitored to ensure that our treatment of it is adequate, as in some cases it causes severe vision loss. 2. Medications - Xalatan, both eyes at bedtime - START Alphagan P 0.1%, left eye only 2x daily (sample given today and side effect profile reviewed) 3. Follow up with me in 4 weeks for IOP check Notes to: -Yamileth Singh, OD Performed and dictated by Dr. Gladys England to delmyiblandy Jin No annotated images are attached to the encounter. documented in this encounter Plan of Treatment Upcoming Encounters Date Type Specialty Care Team Description 03/26/2022 Eye Care Visit Ophthalmology Gladys England MD [address] [place], [place] [address] (Wo rk) documented as of this encounter Visit Diagnoses Diagnosis Pseudoexfoliative glaucoma, both eyes, m oderate stage - Primary Combined form of senile cataract of both eyes documented in this encounter Care Teams Director Of Rehabilitative Services Relationship Specialty Start Date End Date Uyen Gerard MD PCP - General Family Medicine 08/27/[address] [place] [place] [address] documented as of this encounter
--- OUTSIDE RECORDS SUMMARY | 2022-03-17 16:39 | XMS_ITS | Encounter Summary ---
:1935 Author Organization [facility] [place] [address] Care Team Providers Name Role Phone Uyen Gerard MD Primary Care Provider Encounter Details Date Type Department Care Team Description 05/29/2021 Hospital Encounter Pulmonology at [facility] Interstitial lung [facility] [place] [phone] Social History Tobacco Use Types Packs/Day Years [...] Name Priority Date/Time Associated Diagnosis Comme nts PULMONARY FUNCTION Routine 05/29/2021 1:39 PM Interstitial kaity g Results for this TEST EDT disease procedure are i n the [...] / FVC LLN 61 % COMPAS PFT [id number] Actual 0.54 L/s COMPAS PFT Pre-BD [id number] Pre-BD 39 % COMPAS PFT % of Predicted [id number] 1.40 L/s COMPAS PFT Predicted [id number] Pre-BD -1.69 COMPAS PFT Z-Score DLCO Hb [...] Normal resting and ambulatory oximetry. Procedure Note Backer, Mj Briscoe MD - 05/30/2021Formatt ing of this note [...] smoking. Normal resting and ambulatory oximetry. Carmelina Donaldson MD PFT ORDERABLES Performing Organization Address City/State/ZIP Code Phon e Number COMPAS PFT documented in this encounter Visit Diagnoses Diagnosis Interstitial lung disease Postinflammatory pulmonary fibrosis documented in this encounter Care Teams Oil Speculator Relationship Specialty Start Date End Date Uyen Gerard MD PCP - General 07/01/13 [address] [place] [address] documented as of this encounter
--- OUTSIDE RECORDS SUMMARY | 2022-03-17 16:39 | XMS_ITS | Encounter Summary ---
:1935 [facility] Address [facility] [phone] [place] [address] Care Team Providers Name Role Phone Unavailable Primary Care Provider Unavailable Encounter Details Date Type Department Care Team Description 02/09/2017 [facility] Oncology and Hematology [address] [place] [address] [address] [place] [phone] Social History Tobacco Use Types Packs/Day Years Used Date Never Assessed Sex Assigned at Date Recorded Not on file documented as of this encounter Last Filed Vital Signs Vital Sign Reading Time Taken Comments Blood Pressure 130/80 02/09/2017 11:03 AM EDT Pulse - - Temperature - - Respiratory Rate - - Oxygen Saturation - - Inhaled Oxygen Concentration - - Weight 59.1 kg (130 lb 6.4 oz) 02/09/2017 11:03 AM EDT Height - - Body Mass Index 23.1 01/29/2016 3:19 PM EDT documented in this encounter Progress Notes Mirta Sorenson MD - 02/09/2017 11:03 AM EDT [facility] TALITA VELASCO was seen today for follow up. 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 Treatment: Observation ECOG Performance Status: 0/4 Patient receiving Oral Antineoplastic Therapy? No Advanced Directive? not discussed History of Present Illness: Patient is 82 years old; she is accompanied by her ;Since her last visit, she has had no new procedures ; In August 2016, she was diagnosed with atrial fibrillation and is currently on Eliquis; she has just completed attending 3 graduations of 3 grandchildren; she continues to have shortness of breath with inclines; she is getting over an upper respiratory tract infection; She is looking forward to a cruise in [place] to the [place]; Previously she had a left ankle fracture which needed internal fixation in July 2013 while traveling from [place] to [place]; She was previously seen by Dr. 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 She now has a primary care and pulmonary physician at [place], [place] . 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--now spreading her time between [place] and [place]; Patient originally lived and worked in [facility] Review of Systems The patient denies [...] functionality; Ankle pain and stiffness has resolved Patient went to to [facility] in 2014 ;Patient has had a screening mammogram and [...] Please provide one pair of thigh-high compression mrnpynjtm-[id number] mm mercury LOSARTAN POTASSIUM 25 MG TABS (LOSARTAN POTASSIUM) take 1 tab daily VITAMIN C CAPS (ASCORBIC ACID CAPS) 1000u once daily ELIQUIS 5 MG TABS (APIXABAN) take 1 tab twice a day LOPRESSOR HCT 50-25 MG TABS (METOPROLOL-HYDROCHLOROTHIAZIDE) take 3 tabs daily Vital Signs: Patient Profile: 82 Years Old Female Height: 63 inches (160.02 cm) Weight: 130.4 pounds (59.27 kg) BMI: 23.18 BSA: 1.61 O2 Sat: 94 % Temp: 96.6 degrees F (35.89 degrees C) tympanic Pulse rate: 83 / minute Pulse rhythm: regular Resp: 16 per minute BP sittin / 80 (left arm) Cuff size: regular Menstrual History Note: post menopausalPatient in pain? no Vitals Taken By: Boy Peter MA, February 09, 2017 11:08 AM Tobacco use: never smoker Rooming Notes Medications and allergies were reviewed with the patient. Signed by: Boy Peter MA, February 09, 2017 11:08 AM Physical Exam General: BMI: 23.18-1.4 pound weight gain Head: Patient has no [...] Other: . CBC/with Diff & CBCO WBC: 6.0 X10 3/UL - 01/09/2017 RBC: 5.00 X10 6/UL - 01/09/2017 HGB: 14.3 - 01/09/2017 HCT: 44.1 - 01/09/2017 MCV: 88.2 - 01/09/2017 MCH: 28.6 - 01/09/2017 MCHC RBC: 32.4 - 01/09/2017 RDW: 13.1 - 01/09/2017 HDW: 2.4 - 12/13/2010 Platelets: 223 X10 3/UL - 01/09/2017 MPV: 10.1 - 01/09/2017 NEUT %: 58 - 01/09/2017 LYMPHS %: 29 - 01/09/2017 MONOCYTE %: 9 - 01/09/2017 EOSINOPHIL %: 3 - 01/09/2017 BASOPHIL %: 1 - 01/09/2017 SARAH %: 4 - 12/13/2010 Comprehensive/Basic Metabolic Panel, Electrolyte & Liver Function Panel Labs Sodium: 139 MEQ/L - 01/09/2017 Potassium: 4.3 MEQ/L - 01/09/2017 Chloride: 101 MEQ/L - 01/09/2017 Carbon Dioxide: 33 MEQ/L - 01/09/2017 Anion Gap: 5.0 mEq/L - 01/09/2017 Glucose: 83 - 01/09/2017 BUN: 24 - 01/09/2017 Creatinine: 1.00 - 01/09/2017 BUN/Creatinine: 24.0 - 01/09/2017 Calcium: 9.1 - 01/09/2017 Albumin: 3.7 - 01/09/2017 Alkaline Phosphatase: - AST: - 01/09/2017 ALT: 24 - 01/09/2017 Total Bilirubin: 0.4 - 01/09/2017 Direct Bilirubin: 0.1 - 08/07/2011 Total Protein: 7.3 - 01/09/2017 Globulin: 3.6 - 01/09/2017 A/G Ratio: 1.03 - 01/09/2017 Complete Medication List: IMITREX 50 MG TABS [...] Please provide one pair of thigh-high compression [id number]-[id number] mm mercury LOSARTAN POTASSIUM 25 MG TABS (LOSARTAN POTASSIUM) take 1 tab daily VITAMIN C CAPS (ASCORBIC ACID CAPS) 1000u once daily ELIQUIS 5 MG TABS (APIXABAN) take 1 tab twice a day LOPRESSOR HCT 50-25 MG TABS (METOPROLOL-HYDROCHLOROTHIAZIDE) take 3 tabs daily Plan: Renal cancer stage II: Patient [...] have been stable since 2004. Followup with district extension service agent; She is aware that she can call me with any questions regarding kidney cancer or new symptoms. The patient is moving to [place], I again suggested that she switch her oncologic care to the [facility] at [facility].She will think about it. This recommendation still [...] patient receives all her primary care in [place]-primary care issues like screening, vaccination and health maintenance issues are deferred to her PCP; Patient Instructions: Please have a wonderful trip in [place] Return for follow-up and labs in one year Please call if any questions or symptoms Keep up the marvelous job of maintaining activity Please use compression stockings on your trip to [place] CC: Uyen Gerard MD sent to above indicated cc'd provider(s) documented in this encounter Plan of Treatment Upcoming Encounters Date Type Specialty Care Team Description 03/26/2022 Eye Care Visit Ophthalmology Gladys England MD [address] [place] [phone] (Wo rk) documented as of this encounter Visit Diagnoses Not on filedocumented in this encounter
--- OUTSIDE RECORDS SUMMARY | 2022-03-17 16:40 | XMS_ITS | Encounter Summary ---
:1935 Author Organization [facility] [place] [address] Care Team Providers Name Role Phone Uyen Gerard MD Primary Care Provider Encounter Details Date Type Department Care Team Description 11/02/2015 Telephone Nephrology Hypertens ion at [facility] [place] [address] Social History Tobacco Use Types Packs/Day Years Used Date Never Smoker Smokeless Tobacco: Never Used Alcohol Use Standard Drinks/Week Comments Yes 7 (1 standard drink = 0.6 oz pure alcoho l) Sex Assigned at Date Recorded Female 03/31/2021 2:10 PM EDT documented as of this encounter Miscellaneous Notes Telephone Encounter - Tami Rosado - 11/02/2015 10:27 AM EST Called PT. No answering machine. Will try again at later date. documented in this encounter Plan of Treatment Not on filedocumented as of this encounter Visit Diagnoses Not on filedocumented in this encounter Care Teams Nuclear Medical Tech Relationship Specialty Start Date End Date Uyen Gerard MD PCP - General 07/01/13 [address] [place], [place] [id number] documented as of this encounter
--- OUTSIDE RECORDS SUMMARY | 2022-03-17 16:40 | XMS_ITS | Encounter Summary ---
:1935 Author Organization [facility] [place] [address] Care Team Providers Name Role Phone Michael Perez MD Primary Care Provider Encounter Details Date Type Department Care Team Description 04/24/2011 Laboratory Appointment Laboratory [facility] [address] [facility] [address] [address] [facility] [phone] [place] [address] Social History Tobacco Use Types Packs/Day Years Used Date Never Assessed Sex Assigned at Date Recorded Female 03/31/2021 2:10 PM EDT documented as of this encounter Plan of Treatment Not on filedocumented as of this encounter Procedures Procedure Name Priority Date/Time Associated Comments Diagnosis DIFFERENTIAL, Routine 04/24/2011 10:24 Results fo r this AUTOMATED AM EDT procedure are i n the results section. SEDIMENTATION RATE Routine 04/24/2011 10:24 Resul ts for this AM EDT procedure are i n the results section. CBC (WITH DIFF) Routine 04/24/2011 10:24 Results for this AM EDT procedure are i n the results section. LACTATE DEHYDROGENASE Routine 04/24/2011 10:24 Re sults for this AM EDT procedure are i n the results section. COMPREHENSIVE Routine 04/24/2011 10:24 Results fo r this METABOLIC PANEL AM EDT procedure ar e in (NON-FASTING) the results section. documented in this encounter Results (ABNORMAL) LACTATE DEHYDROGENASE (04/24/2011 10:24 AM EDT) P athologist Signature LDH 240 (H) 110 - 220 CERNER unit/L MILLENNIUM Specimen Anatomical Collection Method Collection Time Receive d Time (Source) Location / / Volume Laterality Blood specimen 04/24/2011 10:24 1 1:54 (specimen) AM EDT PM EDT Brennan Paz MD CHEMISTRY ORDERABLES Performing Organization Address City/State/[place] [address] CERNER MILLENNIUM (ABNORMAL) COMPREHENSIVE METABOLIC PANEL (NON-FASTING) (04/24/2011 10:24 AM EDT) athologist Signature Glucose Lvl 94 60 - 199 CERNER mg/dL MILLENNIUM Comment: Diabetes: >=200 mg/dL plus symp toms BUN 24 (H) 8 - 18 mg/dL CERNER MILLENNIUM Creatinine 1.15 0.70 - 1.20 mg/dL CERNER MILL ENNIUM Sodium 138 135 - 145 mmol/L CERNER EDGAR NIUM Potassium 4.1 3.5 - 5.0 mmol/L CERNER EDGAR NIUM Comment: Please note: ??Patients with WBC >100,00 0 may have falsely elevated Potassium levels. ??For accurate Potassium quantif ication in these patients send serum separator tube (gold top) for subsequent determinations. ??Contact the Clinical Chemistry Laboratory if there are any qu estions. Chloride 101 98 - 107 mmol/L CERNER MILLENN IUM CO2 30 22 - 31 mmol/L CERNER MILLENNI UM Anion Gap 7 5 - 15 mmol/L CERNER MILLENNIU M Calcium 9.8 8.5 - 10.5 mg/dL CERNER EDGAR NIUM Total Protein 8.0 6.4 - 8.3 gm/dL CERNER MIL LENNIUM Albumin 4.3 3.2 - 5.2 gm/dL CERNER MILLENN IUM AST 40 (H) 0 - 30 unit/L CERNER MILLENNIU M ALT 39 (H) 0 - 30 unit/L CERNER MILLENNIU M Alk Phos 60 40 - 104 unit/L CERNER MILLENN IUM Total Bilirubin 0.4 0.2 - 1.3 mg/dL CERNER M ILLENNIUM Bili, Direct 0.1 0.0 - 0.3 mg/dL LANIE MILL ENNIUM Estimated GFR 46 (L) >=60 LANIE JUDSONINDYNaniSydney Maryjane Comment: The National Kidney Disease Education Pr ogram (NKDEP) has recommended all laboratories report estimated GFR (eGFR) along with plasma creatinine measurements to assist you with recognit ion of early kidney disease. Caveats: ??Plasma creatinine should be a t steady-state (unchanged within the past week). For patient s multiply eGFR by 1.2.MDRD equation has not been validated for pediatric pat ients and is only valid for patients with age >= 18 years. At present, NKDEP does NOT recommend usi ng the MDRD equation for drug dosing purposes and pharmacists should continue to use their current dosing methods. In addition, numerical eGFR values great er than 60 ml/min/1.73 square meters should be treated as > 60, and not an ex act number due to greater inaccuracies at these higher values. Per NKDEP, they classify normal renal function as any GFR >60ml/min/1.73 square meters; chronic kidney disease wh en GFR <60, and renal failure when GFR <15. ??This calculation may not be valid for patients with atypical muscle mass (very lean or obese), acute renal failur e, and in patients with diabetic kidney disease. References: http://nkdep.nih.gov/resources/NKDEP_Sug gestn4Labs_0606_508.pdf http://www.kidney.org/professionals/kls/ pdf/faq_gfr.pdf Specimen Anatomical Collection Method Collection Time Receive d Time (Source) Location / / Volume Laterality Blood specimen 04/24/2011 10:24 1 1:54 (specimen) AM EDT PM EDT Brennan Paz MD CHEMISTRY ORDERABLES Performing Organization Address City/State/[place] [address] LANIE ARACELIIUM REFLEX LAB-A-DIFF (04/24/2011 10:24 AM EDT) P athologist Signature Neutrophils % 60.4 34.0 - CERNER 71.0 % MILLENNIUM Neutr Abs (ANC) 3.80 1.50 - CERNER 6.30 MILLENNIUM x10(3)/mcL Lymphocytes % 27.2 19.0 - CERNER 53.0 % MILLENNIUM Lymphocytes Abs 1.7 1.0 - 3.6 CERNER x10(3)/mcL MILLENNIUM Monocytes % 10.0 4.0 - 13.0 CERNER % MILLENNIUM Monocyte Abs 0.6 0.2 - 1.0 CERNER x10(3)/mcL MILLENNIUM Eosinophils % 1.9 0.0 - 7.0 CERNER % MILLENNIUM Eosinophils Abs 0.1 0.0 - 0.5 CERNER x10(3)/mcL MILLENNIUM Basophils % 0.5 0.0 - 2.0 CERNER % MILLENNIUM Basophils Abs 0.0 0.0 - 0.2 CERNER x10(3)/mcL MILLENNIUM Specimen Anatomical Collection Method Collection Time Receive d Time (Source) Location / / Volume Laterality Blood specimen 04/24/2011 10:24 1 (specimen) AM EDT 12:07 PM EDT Brennan Paz MD HEMATOLOGY ORDERABLES Performing Organization Address City/State/[place] [address] CERNER MILLENNIUM CBC (WITH DIFF) (04/24/2011 10:24 AM EDT) P athologist Signature WBC 6.3 4.0 - 10.0 CERNER x10(3)/mcL MILLENNIUM RBC 4.92 3.93 - 5.22 CERNER x10(6)/mcL MILLENNIUM Hemoglobin 14.2 11.2 - 15.7 CERNER gm/dL MILLENNIUM Hematocrit 42.5 34.0 - 45.0 CERNER % MILLENNIUM MCV 86.4 79.0 - 94.0 CERNER fL MILLENNIUM MCH 28.9 26.6 - 32.2 CERNER pg MILLENNIUM MCHC 33.4 32.0 - 36.5 CERNER gm/dL MILLENNIUM Platelets 214 145 - 370 CERNER x10(3)/mcL MILLENNIUM RDWSD 41.4 35.0 - 46.0 CERNER fL MILLENNIUM RDWCV 13.3 10.9 - 14.4 CERNER % MILLENNIUM MPV 10.5 9.0 - 12.0 [facility] fL [facility] Specimen Anatomical Collection Method Collection Time Receive d Time (Source) Location / / Volume Laterality Blood specimen 04/24/2011 10:24 1 (specimen) AM EDT 12:06 PM EDT Brennan Paz MD HEMATOLOGY ORDERABLES Performing Organization Address City/State/ZIP Code Phon e Number [address] CERNER MILLENNIUM SEDIMENTATION RATE (04/24/2011 10:24 AM EDT) P athologist Signature Sed Rate 16 0 - 20 CERNER mm/hr [facility] Specimen Anatomical Collection Method Collection Time Receive d Time (Source) Location / / Volume Laterality Blood specimen 04/24/2011 10:24 1 (specimen) AM EDT 10:57 AM EDT Brennan Paz MD HEMATOLOGY ORDERABLES Performing Organization Address City/State/ZIP Code Phon e Number [address] CERNER MILLENNIUM documented in this encounter Visit Diagnoses Not on filedocumented in this encounter Care Teams Vice President [employer] Relationship Specialty Start Date End Date Michael Perez MD PCP - General 04/24/11 03/10/13 documented as of this encounter
--- OUTSIDE RECORDS SUMMARY | 2022-03-17 16:40 | XMS_ITS | Encounter Summary ---
:1935 Author Organization [facility] [place] [address] Care Team Providers Name Role Phone Uyen Gerard MD Primary Care Provider Encounter Details Date Type Department Care Team Description 01/01/2021 Orders Only Pulmonology at [facility] [place] [place] Geraldine Sky MD [facility]ct[facility] complicat ion ([facility] [address]) [place] Pulmonary [phone] Medicine [phone] [place], [place] [address] Social History Tobacco Use Types Packs/Day Years Used Date Never Smoker Smokeless Tobacco: Never Used Alcohol Use Standard Drinks/Week Comments Yes 7 (1 standard drink = 0.6 oz pure alcoho l) Sex Assigned at Date Recorded Female 03/31/2021 2:10 PM EDT documented as of this encounter Plan of Treatment Not on filedocumented as of this encounter Visit Diagnoses Diagnosis Bronchiectasis without complication - Pr imary Bronchiectasis without acute exacerbatio n documented in this encounter Care Teams Facing Slitter Relationship Specialty Start Date End Date Uyen Gerard MD PCP - General 07/01/13 [address] [place], [place] [id number] documented as of this encounter
--- OUTSIDE RECORDS SUMMARY | 2022-03-17 16:40 | XMS_ITS | Encounter Summary ---
:1935 Author Organization [facility] [place] [address] Care Team Providers Name Role Phone Michael Perez MD Primary Care Provider Reason for Visit Reason Comments COPD Encounter Details Date Type Department Care Team Description 03/11/2013 [facility] ([facility] Dame Soledad Munguia MD Peripheral edema [address] [place], [place] [facility] [address] [address] [facility] [phone] [place] [address] Social History Tobacco Use Types Packs/Day Years Used Date Never Smoker Smokeless Tobacco: Never Used Alcohol Use Standard Drinks/Week Comments Yes 7 (1 standard drink = 0.6 oz pure alcoho l) Sex Assigned at Date Recorded Female 03/31/2021 2:10 PM EDT documented as of this encounter Last Filed Vital Signs Vital Sign Reading Time Taken Comments Blood Pressure 124/80 03/11/2013 10:07 AM EDT Pulse 67 03/11/2013 10:07 AM EDT Temperature - - Respiratory Rate - - Oxygen Saturation 97% 03/11/2013 10:07 AM EDT room a ir Inhaled Oxygen Concentration - - Weight 61.3 kg (135 lb 3.2 oz) 03/11/2013 10:07 AM EDT Height 165.1 cm (5' 5) 03/11/2013 10:07 AM EDT Body Mass Index 22.5 03/11/2013 10:07 AM EDT documented in this encounter Patient Instructions Patient InstructionsGoMing delgadillo MD - 03/11/2013 10:37 AM EDT I am happy you are doing well from a RESPIRATORY standpoint. Please use Albuterol 2 puffs up to every four hours as needed for cough or wheeze. As you have a little edema today and have just one kidney, please have your blood drawn today to allow me to assess your kidney function. Please call next week to discuss the blood test results If you have any new concerns, questions or symptoms, please call my office [phone]. documented in this encounter Progress Notes Ming Carter MD - 03/11/2013 10:26 AM EDT Follow-up Office Visit Established Patent Chief Complaint Patient presents with ??? COPD Jerri Velasco is a 78 y.o. female returns for follow-up of well-compensated Severe COPD. The patient tells me that overall symptoms have been fine since last visit. Plugging along. Routine activity tolerance has been fine. Breathing problems do not usually interfere with activities or selection of activities. Exercise is routinely performed in the form of gardening. [facility]. [facility] [place] [facility]. Sleep has not been interrupted by respiratory symptoms. GERD symptoms are absent. PNDS has been a bother, especially in the morning. Triggers to symptoms typically include: Pollen and humidity a little bother. Recent changes in living and / or working environment include: none. Allergies as of 03/11/2013 - Review Complete 03/11/2013 Allergen Reaction Noted ??? Codeine phosphate spiriva one per day Does not have Albuterol Current Medications include: Current Outpatient Prescriptions Medication Sig Dispense Refill ??? Calcium 500 mg Tab Take 2 tablets by mouth daily. ??? atorvastatin (LIPITOR) 10 mg tablet Take 10 mg by mouth daily. ??? Cholecalciferol, Vitamin D3, (VITAMIN D) 1,000 unit Cap Take 1,000 Units by mouth daily. ??? tiotropium (SPIRIVA) 18 mcg inhalation capsule Inhale 1 capsule into the lungs daily. 90 capsule3 ??? SUMAtriptan (IMITREX) 25 mg tablet Take 50 mg by mouth as needed. ??? metoprolol (LOPRESSOR) 100 mg tablet Take 50 mg by mouth 2 times daily. ??? meclizine (ANTIVERT) 25 mg tablet Take 25 mg by mouth 3 times daily as needed. ??? aiyrvednjm-busgzxt-lejkkuqd (FIORINAL) 50-325-40 mg per tablet Take 1 tablet by mouth every 4 hours as needed. ??? DOCUSATE SODIUM (COLACE ORAL) ??? Cod Liver Oil Cap Side effects related to these medications include none. Past Surgical History Procedure Date ??? Tonsillectomy ??? Total nephrectomy [address] White, right. No chemo, No xrt. Past Medical History Diagnosis Date ??? Hypertension 06/02/2011 ??? Renal cell cancer 06/02/2011 ??? COPD (chronic obstructive pulmonary disease) 06/02/2011 ??? Rash ??? 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 Rheumatoid Arthritis Maternal Grandmother ??? Myocardial Infarction Paternal Grandmother ??? Hypertension Mother ??? Migraines Daughter ??? Stroke Mother mini ??? Thyroid Disease Daughter No family status information on file. History Social History ??? Marital Status: N/A Spouse Name: N/A Number of Children: N/A ??? Years of Education: N/A Social History Main Topics ??? Smoking status: Never Smoker ??? Smokeless tobacco: Never Used ??? Alcohol Use: 4.2 oz/week 7 Glasses of wine per week ??? Drug Use: No ??? Sexually Active: None Other Topics Concern ??? 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 Physical Exam: Body mass index is 22.50 kg/(m^2). Blood pressure 124/80, pulse 67, height 165.1 cm (5' 5), weight 61.326 kg (135 lb 3.2 oz), SpO2 97.00%, peak flow 300 L/min. General appearance: comfortable. Good eye contact, cooperation and recall. Eyes: FROM, anicteric. Ears: clear Nose: pink,moist Oral cavity: Dentition: no lesons Mallampati airway: 2 Thrush: absent. Neck: No stridor, no bruit; no submandibular; anterior cervical or supraclav adenopathy. No thyroid abnormality appreciated Cor: no advential heart sounds heard, RRR Chest: No obvious use of accessory muscles of respiration. Hyperinflation is evident. Bilateral breath sounds are present and symmetric. Significant crackles are not appreciated. A prolonged expiratory phase is mild. Wheezes are absent. Abdomen: Soft and non-tender. No hepatosplenomegaly appreciated not obese Skin: no significant rash Extremities: Warm, well perfused trace edema, cords, or clubbing, mild edema with 'sock line evident Neuro: Attentive, Alert & oriented x3 No significant motor, gait or sensory deficit. Data: Chemistry Component Value Date/Time NA 138 04/24/2011 1024 K 4.1 04/24/2011 1024 CL 101 04/24/2011 1024 CO2 30 04/24/2011 1024 BUN 24* 04/24/2011 1024 CREATININE 1.15 04/24/2011 1024 Component Value Date/Time CALCIUM 9.8 04/24/2011 1024 ALKPHOS 60 04/24/2011 1024 AST 40* 04/24/2011 1024 ALT 39* 04/24/2011 1024 BILITOT 0.4 04/24/2011 1024 Lab Results Component Value Date SEDRATE 16 04/24/2011 Lab Results Component Value Date WBC 6.3 04/24/2011 HGB 14.2 04/24/2011 HCT 42.5 04/24/2011 MCV 86.4 04/24/2011 Pulmonary Functions Testing Results: I reviewed raw PFT data FEV-1 50% of predicted, approximately 1 L with evidence of obstruction Chest CAT scan March 2010. Coarse, reticular changes in the right middle lobe. No adenopathy. IMPRESSION: 1. Severe COPD with an FEV1 50% of predicted. The patient presents with her , saying that she is doing well. She is active and maintaining an active lifestyle. She uses Spiriva daily without any adverse effects. She has no significant flares in her symptoms. She has had no recent decompensation, need for antibiotics or corticosteroids. She is pleased with her current status. She remains active gardening and doing what she needs to around the house. She tells me she is going to [place] in the winter and is a bit concerned about being adequately prepared from a COPD standpoint. At this time, she is an appropriate patient who should keep on hand albuterol for quick relief of cough, wheeze or other respiratory symptoms. In addition, I will likely provide the patient with a Medrol Dosepak and an antibiotic when I next see her in September of 2013, prior to her trip to [facility]. 2. Edema. In light of her renal cell carcinoma and nephrectomy, a bit of edema is a concern. She denies having a head of foam on her urine to suggest proteinuria; nonetheless, I would like to further evaluate her with some electrolytes, which have not been measured in quite a while, she reports. I will share this data with her primary care physician. PLAN/Patient instructions: 1- Patient was instructed to call this office at anytime if new respiratory symptoms (examples were discussed) or if new questions or concerns develop. I am happy you are doing well from a RESPIRATORY standpoint. Please use Albuterol 2 puffs up to every four hours as needed for cough or wheeze. As you have a little edema today and have just one kidney, please have your blood drawn today to allow me to assess your kidney function. Please call next week to discuss the blood test results If you have any new concerns, questions or symptoms, please call my office [phone]. CC: Uyen Gerard MD [place], [place] documented in this encounter Plan of Treatment Not on filedocumented as of this encounter Results (ABNORMAL) Basic Metabolic Panel (non-fasting) (03/11/2013 11:15 AM EDT) athologist Signature Glucose Lvl 83 60 - 199 CERNER mg/dL [facility] Comment: Diabetes: >=200 mg/dL plus symp toms BUN 19 (H) 8 - 18 mg/dL CERNER MILLENNIUM Creatinine 1.07 0.70 - 1.20 mg/dL CERNER MILL ENNIUM Comment: Please note that the pediatric reference intervals supplied above were not validated at [facility]. Results from pediatri c patients should be interpreted in conjunction to the patient's age, height and muscle mass. Sodium 135 135 - 145 mmol/L CERNER EDGAR NIUM Potassium 4.6 3.5 - 5.0 mmol/L CERNER EDGAR NIUM Comment: Please note: ??Patients with WBC >100,00 0 may have falsely elevated Potassium levels. ??For accurate Potassium quantif ication in these patients send serum separator tube (gold top) for subsequent determinations. ??Contact the Clinical Chemistry Laboratory if there are any qu estions. Chloride 98 98 - 107 mmol/L CERNER MILLENN IUM CO2 27 22 - 31 mmol/L CERNER MILLENNI UM Anion Gap 10 5 - 15 mmol/L CERNER MILLENNIU M Calcium 9.1 8.5 - 10.5 mg/dL CERNER EDGAR NIUM Estimated GFR 50 (L) >=60 CERNER MILLENNIU M Comment: This estimated GFR (eGFR) value was calc ulated using the MDRD equation which has been validated on patients between t he ages of 18 and 70. The MDRD should not be used to assess kidney function in patients < 18 years of age or in patients with extremes of body mass, or in patients with acute kidney failure. This value should be multiplied by 1.2 f or patients. For further information please copy and past e the following links into your internet browser. http://www.nkdep.nih.gov/lab-evaluation. shtml http://www.kidney.org/professionals/ Specimen Anatomical Collection Method Collection Time Receive d Time (Source) Location / / Volume Laterality Blood specimen 03/11/2013 11:15 3 6:56 (specimen) AM EDT PM EDT Resulting Agency Comment Spec In Lab Ming Carter MD CHEMISTRY ORDERABLES Performing Organization Address City/State/ZIP [place] [address] CERNER MILLENNIUM documented in this encounter Visit Diagnoses Diagnosis COPD (chronic obstructive pulmonary dise ase) - Primary Chronic airway obstruction, not elsewher e classified Peripheral edema Edema documented in this encounter Care Teams Attorney Lawyer Relationship Specialty Start Date End Date Michael Perez MD PCP - General 03/11/13 03/13/13 documented as of this encounter
--- OUTSIDE RECORDS SUMMARY | 2022-03-17 16:40 | XMS_ITS | Encounter Summary ---
:1935 Author Organization [facility] [place] [address] Care Team Providers Name Role Phone Michael Perez MD Primary Care Provider Encounter Details Date Type Department Care Team Description 04/24/2011 Laboratory Appointment Laboratory [facility] Argenis Mcak MD [address] [place] [address] [place] [address] [place] [id number] [phone] Social History Tobacco Use Types Packs/Day Years Used Date Never Assessed Sex Assigned at Date Recorded Female 03/31/2021 2:10 PM EDT documented as of this encounter Plan of Treatment Not on filedocumented as of this encounter Visit Diagnoses Not on filedocumented in this encounter Care Teams Warp Placer Relationship Specialty Start Date End Date Michael Perez MD PCP - General 04/24/11 03/10/13 documented as of this encounter
--- OUTSIDE RECORDS SUMMARY | 2022-03-17 16:40 | XMS_ITS | Encounter Summary ---
:1935 Author Organization [facility] [place] [address] Care Team Providers Name Role Phone Uyen Gerard MD Primary Care Provider Reason for Visit Reason Onset Date Comments Results 03/16/2013 Encounter Details Date Type Department Care Team Description 03/16/2013 Telephone Pulmonology at [place] Ming Andrea MD Results [facility] [address] [place] [address] [place] [address] [address] [place], [place] [address] (Wo rk) Social History Tobacco Use Types Packs/Day Years Used Date Never Smoker Smokeless Tobacco: Never Used Alcohol Use Standard Drinks/Week Comments Yes 7 (1 standard drink = 0.6 oz pure alcoho l) Sex Assigned at Date Recorded Female 03/31/2021 2:10 PM EDT documented as of this encounter Miscellaneous Notes Telephone Encounter - Jennie Broussard RN - 03/16/2013 11:02 AM EDT Spoke to patient, discussed results as outlined by Dr. Carter. Patient will cook pickled meat copy of report in office on Thursday. Telephone Encounter - Jennie Broussard RN - 03/16/2013 10:[address] Carter -- Patient requesting results review, labs available in [facility] from 03/11. Please advise, Thanks TEF. Telephone Encounter - Claudia Liang - 03/16/2013 10:08 AM EDT WHICH RESULTS: labs WHERE WAS IT DONE : [facility] WHEN WAS IT DONE: 03/11 documented in this encounter Plan of Treatment Not on filedocumented as of this encounter Visit Diagnoses Not on filedocumented in this encounter Care Teams Veterinary Hospital Attendant Relationship Specialty Start Date End Date Uyen Gerard MD PCP - General 03/14/13 06/30/[address] [place] [address] documented as of this encounter
--- OUTSIDE RECORDS SUMMARY | 2022-03-17 16:40 | XMS_ITS | Encounter Summary ---
:1935 Author Organization [place] [address] Care Team Providers Name Role Phone Uyen Gerard MD Primary Care Provider Reason for Referral Diagnostic Test (Routine) - Closed Specialty Diagnoses / Procedures Referred By Contact Refer red To Contact Radiology Diagnoses Bronchiectasis without complication Jack Martinez MD [facility] Rad Ct Scan Procedures CT Chest wo Contrast (Generic) [facility] DR Turner [facility] [place] [address] [place] [address] Referral ID Status Reason Start Date Expiration Date Visits V isits Requested Authorized [id number] Closed Specialty 01/07/2021 07/10/2022 1 1 Service Requested Encounter Details Date Type Department Care Team Description 01/07/2021 Orders Only Pul[facility]ology at [facility] Jack Martinez Bronchiectasis without [facility] [place] MD Maryjane complication (Primary Drive [facility] ) [facility] [address] PULMONARY [phone] [place], [place] [address] Social History Tobacco Use Types Packs/Day Years Used Date Never Smoker Smokeless Tobacco: Never Used Alcohol Use Standard Drinks/Week Comments Yes 7 (1 standard drink = 0.6 oz pure alcoho l) Sex Assigned at Date Recorded Female 03/31/2021 2:10 PM EDT documented as of this encounter Plan of Treatment Not on filedocumented as of this encounter Results (ABNORMAL) CT Chest wo [...] who have questions please contact the health vocational childcare teacher that requested your imaging first. ? Electronically signed by: Delia Richard MD, [facility] ([phone]), at 05/08/2021 12:44 PM Narrative 05/08/2021 12:44 [...] Pr imary Bronchiectasis without acute exacerbatio n Bronchiectasis without complication Bronchiectasis without acute exacerbatio n documented in this encounter Care Teams Seat Cover Installer Relationship Specialty Start Date End Date Uyen Gerard MD PCP - General 07/01/13 [address] [place] [address] documented as of this encounter
--- OUTSIDE RECORDS SUMMARY | 2022-03-17 16:40 | XMS_ITS | Encounter Summary ---
:1935 Author Organization [facility] [place] [address] Care Team Providers Name Role Phone Uyen Gerard MD Primary Care Provider Encounter Details Date Type Department Care Team Description 02/15/2021 Telephone Pul[place]ology at [facility] [place] [address] Social History Tobacco Use Types Packs/Day [...] on filedocumented in this encounter Care Teams Job Placement Specialist Relationship Specialty Start Date End Date Uyen Gerard MD PCP - General 07/01/13 [address] [place] [address] documented as of this encounter
--- OUTSIDE RECORDS SUMMARY | 2022-03-17 16:40 | XMS_ITS | Encounter Summary ---
:1935 [place] [address] Care Team Providers Name Role Phone Uyen Gerard MD Primary Care Provider Encounter Details Date Type Department Care Team Description 08/15/2019 Laboratory Appointment Lab 3L Juan Manuel [place] [address] Social History Tobacco Use Types Packs/Day Years [...] Name Priority Date/Time Associated Diagnosis Comme nts HEMOGRAM STAT 08/15/2019 12:00 Essential Results for this PM EST hypertension procedure are i n the results section. DIFFERENTIAL, STAT 08/15/2019 12:00 Essential Results fo r this AUTOMATED PM EST hypertension procedure are i n the results section. HC VENIPUNCTURE STAT 08/15/2019 12:00 Essential PM EST hypertension BASIC METABOLIC PANEL STAT 08/15/2019 12:00 Essential Re sults for this (NON-FASTING) PM EST hypertension procedure are in the results section. documented in this encounter Results (ABNORMAL) Differential, Automated (08/15/2019 12:00 PM EST) [facility] Method Time Signature Neutrophils % 66.6 % [facility] Neutr Abs (ANC) 6.18 (H) 1.70 - [facility] 6.10 [facility] x10(3)/[facility] LABORATORY Lymphocytes % 17.9 % [facility] Lymphocytes Abs 1.7 0.9 - 3.2 [facility] x10(3)/[facility] LABORATORY Monocytes % 12.4 % [facility] Monocyte Abs 1.2 (H) 0.3 - 0.9 [facility] x10(3)/[facility] LABORATORY Eosinophils % 1.5 % [facility] Eosinophils Abs 0.1 0.0 - 0.4 [facility] x10(3)/[facility] LABORATORY Basophils % 1.0 % [facility] Basophils Abs 0.1 0.0 - 0.1 [facility] x10(3)/[facility] LABORATORY Immature Gran % 0.60 % [facility] Comment: Immature granulocytes(IG's)percentage an d absolute count will include metamyelocytes, myelocytes, and promyelo cytes. Blood smears from CBCs yielding IG's will be scanned manually for concor dance. If this scan disagrees with the automated IG or if promyelocytes are not ed, a manual differential will be performed. Miriam Gran Abs 0.06 (H) 0.00 - 0.04 x10(3)/[facility] LABORATORY Specimen Anatomical Collection Method Collection Time Receive d Time (Source) Location / / Volume Laterality Blood specimen 08/15/2019 12:00 9 (specimen) PM EST 12:09 PM EST Resulting Agency Comment Spec In Lab Nicolás Gallagher MD HEMATOLOGY ORDERABLES Performing Organization Address City/State/[place] [address] Hemogram (08/15/2019 12:00 PM EST) P athologist Signature WBC 9.3 4.0 - 9.5 [facility] x10(3)/[facility] LABORATORY RBC 4.64 4.00 - [facility] 5.21 [facility] x10(6)/[facility] LABORATORY Hemoglobin 13.7 11.7 - JUAN MANUEL AMANDA 15.5 gm/dL [facility] Hematocrit 41.2 35.7 - [facility] [place] 45.8 % [facility] MCV 88.8 82.6 - [facility] 94.4 [facility] LABORATORY MCH 29.5 27.1 - [facility] [place] 32.0 pg [facility] MCHC 33.3 31.7 - [facility] 35.0 gm/dL [facility] Platelets 277 145 - 357 [facility] x10(3)/[facility] LABORATORY RDWSD 42.2 37.0 - [facility] MANUEL AMANDA 46.0 [facility] LABORATORY RDWCV 12.9 11.5 - [facility] 14.1 % [facility] MPV 9.1 7.6 - 12.9 [facility] LABORATORY nRBC % Auto 0.0 % [facility] nRBC Abs Auto 0.000 0.000 - [facility] 0.000 [facility] x10(3)/[facility] LABORATORY Specimen Anatomical Collection Method Collection Time Receive d Time (Source) Location / / Volume Laterality Blood specimen 08/15/2019 12:00 9 (specimen) PM EST 12:09 PM EST Resulting Agency Comment Spec In Lab Nicolás Gallagher MD HEMATOLOGY ORDERABLES Performing Organization Address City/State/[place] [address] (ABNORMAL) Basic Metabolic Panel (non-fasting) (08/15/2019 12:00 PM EST) P athologist Signature Glucose Lvl 68 65 - 199 [facility] mg/dL [facility] Comment: Diabetes: >=200 mg/dL plus symp toms BUN 25 (H) 8 - 18 mg/dL [facility] Creatinine 1.09 0.70 - 1.20 mg/dL [facility] Sodium 130 (L) 135 - 145 mmol/L [facility] Potassium 4.8 3.5 - 5.0 mmol/L [facility] Comment: Please note: ??Patients with WBC >100,00 0 may have falsely elevated Potassium levels. ??For accurate Potassium quantif ication in these patients send serum separator tube (gold top) for subsequent determinations. ??Contact the Clinical Chemistry Laboratory if there are any qu estions. Chloride 91 (L) 98 - 107 mmol/L [facility] CO2 30 22 - 31 mmol/L [facility] Anion Gap 9 5 - 15 mmol/L [facility] Calcium 10.0 8.5 - 10.5 mg/dL [facility] Estimated GFR 47 (L) >=60 mL/min/1.73 m?? [facility] Comment: The eGFR was calculated using the CKD-EP I equation. As with all creatinine based estimates of kidney function, eGFR values calculated with the CKD-EPI equation are not accurate in patients wi th acute kidney failure, extremes of body mass or the acutely ill. [email or web address] eGFR 55 (L) >=60 mL/min/1.73 m?? [facility] Comment: The eGFR was calculated using the CKD-EP I equation. As with all creatinine based estimates of kidney function, eGFR values calculated with the CKD-EPI equation are not accurate in patients wi th acute kidney failure, extremes of body mass or the acutely ill. http://FanGo/DHMCnkf Specimen Anatomical Collection Method Collection Time Receive d Time (Source) Location / / Volume Laterality Blood specimen 08/15/2019 12:00 9 (specimen) PM EST 12:09 PM EST Resulting Agency Comment Spec In Lab Nicolás Gallagher MD CHEMISTRY ORDERABLES Performing Organization Address City/State/[place] [address] documented in this encounter Visit Diagnoses Diagnosis Essential hypertension Unspecified essential hypertension documented in this encounter Care Teams Fire Prevention Chief Relationship Specialty Start Date End Date Uyen Gerard MD PCP - General 07/01/13 [address] [place] [address] documented as of this encounter
--- OUTSIDE RECORDS SUMMARY | 2022-03-17 16:40 | XMS_ITS | Encounter Summary ---
:1935 Author Organization [facility] [place] [address] Care Team Providers Name Role Phone Uyen Zamora MD Primary Care Provider Encounter Details Date Type Department Care Team Description 01/07/2016 Office Visit Nephrology Jannie Oviedo MD [facility] [place] [address] CKD (chronic kidney Hypertension at [facility] [place] [place] Nicolás Gallagher MD [facility] [place] [address] disease) stage 3, [facility] Tremaine Bustillos MD [facility] [place] [address] GFR 30-59 ml/[place] [address] Social History Tobacco Use Types Packs/Day Years Used Date Never Smoker Smokeless Tobacco: Never Used Alcohol Use Standard Drinks/Week Comments Yes 7 (1 standard drink = 0.6 oz pure alcoho l) Sex Assigned at Date Recorded Female 03/31/2021 2:10 PM EDT documented as of this encounter Last Filed Vital Signs Vital Sign Reading Time Taken Comments Blood Pressure 140/86 01/04/2016 2:26 PM EDT Pulse 84 01/04/2016 2:26 PM EDT Temperature - - Respiratory Rate - - Oxygen Saturation - - Inhaled Oxygen Concentration - - Weight 59 kg (130 lb) 01/04/2016 2:26 PM EDT Height 162.6 cm (5' 4) 01/04/2016 2:26 PM EDT Body Mass Index 22.31 01/04/2016 2:26 PM EDT documented in this encounter Progress Notes Nicolás Gallagher MD - 01/08/2016 8:35 AM EDT The patient was examined together with the renal fellow and I agree with the above note which accurately reflects our findings and assessment Tremaine Bustillos MD - 01/07/2016 9:38 AM EDT [facility] Nephrology/Hypertension Follow Up Jerri Velasco [id number] 1935 ID: [id number] y.o. female for CKD G3 and HTN PAST MEDICAL HX: Past Medical History Diagnosis Date ??? Hypertension 06/02/2011 ??? Renal cell cancer 06/02/2011 ??? COPD (chronic obstructive pulmonary disease) 06/02/2011 ??? Rash ??? 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 She reports feeling well. She does not routinely measure her blood pressure at home but says it has been less than 140 systolic at pcp`s office. Denies chest pains , palpitation. No urinary symptoms or hematuria. ROS: -no fever, chills, night sweats -no headache, blurring of vision, diplopia -no dysphagia, hearing problems -no chest pain, palpitation, no MCKENNA, orthopnea -no cough or SOB -no abdominal pain, nausea, vomiting or diarrhea -no rash -no neuropathy -no LE swelling -no change in mood -no heat or cold intolerance Medications: Prior to Admission medications Medication Sig Start Date End Date Taking? Authorizing Provider amLODIPine (NORVASC) 5 mg Tablet Take 5 mg by mouth daily. Yes PROVIDER, HISTORICAL losartan (COZAAR) 50 mg Tablet Take 50 mg by mouth every evening. Yes PROVIDER, HISTORICAL albuterol (PROVENTIL HFA;VENTOLIN HFA) 90 mcg/actuation inhaler Inhale 2 puffs into the lungs every 4 hours as needed. Use with spacer Yes PROVIDER, HISTORICAL Calcium 500 mg Tab Take 1 tablet by mouth 2 times daily. Yes PROVIDER, HISTORICAL atorvastatin (LIPITOR) 10 mg tablet Take 10 mg by mouth daily. Yes PROVIDER, HISTORICAL Cholecalciferol, Vitamin D3, (VITAMIN D) 1,000 unit Cap Take 2,000 Units by mouth daily. Yes PROVIDER, HISTORICAL tiotropium (SPIRIVA) 18 mcg inhalation capsule Inhale 1 capsule into the lungs daily. 04/05/12 Yes Aristides Gallo MD SUMAtriptan (IMITREX) 25 mg tablet Take 50 mg by mouth as needed. Yes PROVIDER, HISTORICAL DOCUSATE SODIUM (COLACE ORAL) 01/02/09 Yes Cod Liver Oil Cap 01/02/09 Yes Allergies / ADRs: Allergies Allergen Reactions ??? Codeine Phosphate PHYSICAL EXAM: Filed Vitals: 01/04/16 1426 BP: 140/86 Pulse: 84 Gen - AAO x 3 in NAD Skin - No rash HEENT - Moist mucous membranes Chest: Lungs clear to auscultation, no wheezes/ rhonchi/ crackles. Heart - S1/S2 normal, no murmur, gallop, or rub. JVP not elevated. Abd - Soft. + BS. No bruit. Non tender. No organomegaly. Ext - Warm. No cyanosis. No dependent edema. Labs/ Imaging: Recent Results (from the past 24 hour(s)) Microalbumin, urine, random Result Value Ref Range U Creatinine 31 mg/dL U Ran Malb Conc <3.0 mg/L U Ran Malb Calc <10 mcg/mg Cr Protein/Creatinine Ratio, urine Result Value Ref Range U Creatinine 33 mg/dL U Protein Ran <6 0 - 12 mg/dL Prot/Cre Ratio <0.2 ratio Impression/ Plan: CKD G3 with risk including longstanding hypertension and renal cell carcinoma s/p nephrectomy. Bloodpressure is controlled on current regimen. She wants bmp to be checked at an outside lab for resultsto be faxed here. -blood pressure is controlled. Goal <150/90 -CKD G3A0. No labs today. Labs will be faxed here. -avoid nephrotoxins/nsaids -follow up in 6 months. Seen and Discussed w/ Dr. Aileen Leblanc. MD [facility] Fellow Pager# [phone] UYEN ZAMORA MD [address] [place] [address] documented in this encounter Plan of Treatment Not on filedocumented as of this encounter Procedures Procedure Name Priority Date/Time Associated Diagnosis Comme nts PROTEIN/CREATININE Routine 01/07/2016 9:30 AM CKD (chronic kid lencho Results for this RATIO, URINE EDT disease) stage 3, procedure are in GFR 30-59 ml/min the results section. U ALBUMIN/CRE RATIO Routine 01/07/2016 9:30 AM CKD (chronic ki dney Results for this EDT disease) stage 3, procedure are in GFR 30-59 ml/min the results section. documented in this encounter Results Microalbumin, urine, random (01/07/2016 9:30 AM EDT) P athologist Signature U Creatinine 31 mg/dL [facility] U Albumin Conc, <3.0 mg/L [facility] Alb/Cr Ratio, <10 mcg/mg Cr [facility] Comment: Reference Range* Random collection (mcg/mg creatinine) Normal ?<30 Microalbuminuria ?? 30 - 300 Clinical Albuminuria ?? >300 *[employer]. Diabetic Nephropathy. Diabetes Care 1997;(Suppl 1):S24-S27 Exercise within 24 hour, infection, fe chico, CHF, marked hyperglycemia, and marked hypertension may elevate urinary albumin excretion over baseline values. Specimen Anatomical Collection Method Collection Time Receive d Time (Source) Location / / Volume Laterality Urine specimen 01/07/2016 9:30 AM 016 (specimen) EDT 10:14 AM EDT Resulting Agency Comment Spec In Lab Jannie Oviedo MD URINE ORDERABLES Performing Organization Address City/State/[place] [address] Protein/Creatinine Ratio, urine (01/07/2016 9:30 AM EDT) P athologist Signature U Creatinine 33 mg/dL [facility] U Protein Ran <6 0 - 12 [facility] mg/dL [facility] Prot/Cre Ratio <0.2 ratio [facility] Specimen Anatomical Collection Method Collection Time Receive d Time (Source) Location / / Volume Laterality Urine specimen 01/07/2016 9:30 AM 016 (specimen) EDT 10:16 AM EDT Resulting Agency Comment Spec In Lab Jannie Oviedo MD URINE ORDERABLES Performing Organization Address City/State/ZIP Code Phon e Number [place] [phone] documented in this encounter Visit Diagnoses Diagnosis CKD (chronic kidney disease) stage 3, GF R 30-59 ml/min Chronic kidney disease, Stage III (moder ate) documented in this encounter Care Teams Guest Relations Associate Relationship Specialty Start Date End Date Uyen Zamora MD PCP - General 07/01/13 [address] [place] [address] documented as of this encounter
--- OUTSIDE RECORDS SUMMARY | 2022-03-17 16:40 | XMS_ITS | Encounter Summary ---
:1935 Author Organization [facility] [place] [address] Care Team Providers Name Role Phone Michael Perez MD Primary Care Provider Encounter Details Date Type Department Care Team Description 08/25/2011 Office Visit CAT Scan at [facility] [address] [place] [address] Social History Tobacco Use Types Packs/Day Years Used Date Never Smoker Alcohol Use Standard Drinks/Week Comments Yes 7 (1 standard drink = 0.6 oz pure alcoho l) Sex Assigned at Date Recorded Female 03/31/2021 2:10 PM EDT documented as of this encounter Miscellaneous Notes Miscellaneous - Joseph Candy Puller - 08/27/2011 10:31 AM EST documented in this encounter Plan of Treatment Not on filedocumented as of this encounter Procedures Procedure Name Priority Date/Time Associated Diagnosis Comme nts CT CHEST W CONTRAST Routine 08/25/2011 12:46 PM R esults for this EST procedure are i n the results section. documented in this encounter Results CT CHEST WITH CONTRAST (08/25/2011 12:46 PM EST) Anatomical Region Laterality Modality Chest Computed Tomography Specimen (Source) Anatomical Collection Method Collection Time Re ceived Time Location / / Volume Laterality 08/25/2011 12:46 PM EST Impressions 08/26/2011 9:35 AM EST IMPRESSION: 1. Chronic parenchymal changes are noted probably representing chronic interstitial disease with a rather prote an differential. Findings are stable compared to a recent examination as well as 04/09/09 suggesting benign process. No evidence for metastatic disease. 2. Stable small nodule in the left lobe, also unchanged from 04/15 confirming a benign nature. No evidence for metasta tic disease. Chaim Yusuf M.D./[id number] Doc #:[id number] Narrative 08/26/2011 9:35 AM EST REASON FOR EXAM: renal cell cancer CHEST CT WITH CONTRAST History: Restaging of renal cell cancer. Spiral axial imaging from the apices thr ough the diaphragms is performed following administration of 80 cc of Omn ipaque 350 intravenous contrast. No hilar, mediastinal, nor axillary tj opathy is clearly evident. Apical pleural thickening is noted bilat erally, more prominently on the right at the medial aspect of the right apex. There is additional pleural thickening seen caudad to the apex along the right posterior and lateral margin of the upper lung field. Slight pleural parench ymal small nodularity and minimal linear appearance is seen in the right u pper lung field laterally as defined on image 20 and 21 through at least image 3 0 where there becomes slightly more confluent curvilinear density with a for m of air alveologram or air bronchogram. There is a subtle tree-in-b ud configuration suggested to some of the parenchymal changes. A small pleural based 3 to 4 mm nodule is seen in the left lower lobe towards the apical segme nt posteriorly on image 38 of series 3. Additional linear and nodular type appea nieves is seen at the inferior, middle, and lingular lobes. This is somewhat sim ilar to the previously described changes on the right in the ??lung field . Slightly more confluent pleural thickening is seen very caudally at the ventral right lower lobe region. Regional skeleton is unremarkable. Comparison is made to prior examination most recently 04/25/11. There is little significant change in the parench ymal changes described on the current examination and if anything less promine nt compared to the prior examination. The small nodule at the apical left lowe r lobe is similar. Findings are also similar dating back to 04/09/09. Procedure Note Chaim Yusuf MD - 08/26/2011Fo rmatting of this note might be different from the original. REASON FOR EXAM: renal cell cancer CHEST CT WITH CONTRAST History: Restaging of renal cell cancer. Spiral axial imaging from the apices thr ough the diaphragms is performed following administration of 80 cc of Omn ipaque 350 intravenous contrast. No hilar, mediastinal, nor axillary tj opathy is clearly evident. Apical pleural thickening is noted bilat erally, more prominently on the right at the medial aspect of the right apex. There is additional pleural thickening seen caudad to the apex along the right posterior and lateral margin of the upper lung field. Slight pleural parench ymal small nodularity and minimal linear appearance is seen in the right u pper lung field laterally as defined on image 20 and 21 through at least image 3 0 where there becomes slightly more confluent curvilinear density with a for m of air alveologram or air bronchogram. There is a subtle tree-in-b ud configuration suggested to some of the parenchymal changes. A small pleural based 3 to 4 mm nodule is seen in the left lower lobe towards the apical segme nt posteriorly on image 38 of series 3. Additional linear and nodular type appea nieves is seen at the inferior, middle, and lingular lobes. This is somewhat sim ilar to the previously described changes on the right in the lung field. Slightly more confluent pleural thickening is seen very caudally at the ventral right lower lobe region. Regional skeleton is unremarkable. Comparison is made to prior examination most recently 04/25/11. There is little significant change in the parench ymal changes described on the current examination and if anything less promine nt compared to the prior examination. The small nodule at the apical left lowe r lobe is similar. Findings are also similar dating back to 04/09/09. IMPRESSION IMPRESSION: 1. Chronic parenchymal changes are noted probably representing chronic interstitial disease with a rather prote an differential. Findings are stable compared to a recent examination as well as 04/09/09 suggesting benign process. No evidence for metastatic disease. 2. Stable small nodule in the left lobe, also unchanged from 04/15 confirming a benign nature. No evidence for metasta tic disease. Chaim Yusuf M.D./[id number] Doc #:[id number] Mirta Sorenson MD IMG CT ORDERABLES documented in this encounter Visit Diagnoses Not on filedocumented in this encounter Care Teams Spray Crew Relationship Specialty Start Date End Date Michael Perez MD PCP - General 04/24/11 03/10/13 documented as of this encounter
--- OUTSIDE RECORDS SUMMARY | 2022-03-17 16:40 | XMS_ITS | Encounter Summary ---
:1935 Author Organization [facility] [place] [address] Care Team Providers Name Role Phone Uyen Gerard MD Primary Care Provider Reason for Visit Reason Onset Date Comments Medication Refill 03/01/2019 Encounter Details Date Type Department Care Team Description 03/01/2019 Refill Nephrology Hypertension Nicolás Gallagher, [facility] [place] [facility] [place] [address] NEPHROLOG[address] DEPT. [place], [place] [address] (Wo rk) Social History Tobacco [...] hypertension documented in this encounter Care Teams Financial Solutions Advisor Relationship Specialty Start Date End Date Uyen Gerard MD PCP - General 07/01/13 [address] [place], [place] [address] documented as of this encounter
--- OUTSIDE RECORDS SUMMARY | 2022-03-17 16:40 | XMS_ITS | Encounter Summary ---
:1935 Author Organization [facility] [place] [address] Care Team Providers Name Role Phone Uyen Gerard MD Primary Care Provider Encounter Details Date Type Department Care Team Description 11/05/2020 TH Visit Nephrology Chayito Gallagher (TeleHealth) Hypertension at [facility] MD Nicolás hypertension Formerly [facility] [place] [address] NEPHROLOGY DEPT. [phone] [place] [address] Social History Tobacco Use Types Packs/Day Years Used Date Never Smoker Smokeless Tobacco: Never Used Alcohol Use Standard Drinks/Week Comments Yes 7 (1 standard drink = 0.6 oz pure alcoho l) Sex Assigned at Date Recorded Female 03/31/2021 2:10 PM EDT documented as of this encounter Last Filed Vital Signs Vital Sign Reading Time Taken Comments Blood Pressure 139/70 11/05/2020 3:36 PM EST Pulse 63 11/05/2020 3:36 PM EST Temperature - - Respiratory Rate - - Oxygen Saturation - - Inhaled Oxygen Concentration - - Weight 61.2 kg (135 lb) 11/05/2020 3:36 PM EST Height 162.6 cm (5' 4) 11/05/2020 3:36 PM EST Body Mass Index 23.17 11/05/2020 3:36 PM EST documented in this encounter Progress Notes Nicolás Gallagher MD - 11/05/2020 4:30 PM EST 85 y/o woman for follow up of HTN and CKD The patient elected to have follow up by telehealth because of the Covid related public health emergency, her metropolol dose has been adjusted because of tiredness, since then she has been feeling well with no illness or hospitalization, no dizziness, or lightheadedness, no urine chames observed, her only complaint is mild ankle swelling intermittently, she is feeling well and a review of systems isnegative Recent labs: 10/31/20 Na 131 K 4.5 Cl 94 CO2 33 glu 79 BUN 19 creat 0.94 eGFR>60 Ca 9.3 WBC 7.7 Hb 13.1 Plat 228 PTH 35.9 Vit D 61 Medications: Current Outpatient Medications: ??? apixaban (Eliquis) 5 mg Tablet, Take 5 mg by mouth 2 times daily., Disp: , Rfl: ??? metoprolol succinate XL (Toprol-XL) 50 mg Tablet Sustained Release 24 hr, Take by mouth. 75 MG-AM, 50 MG-PM, Disp: , Rfl: ??? fluticasone/umeclidin/vilanter (TRELEGY ELLIPTA INHL), Inhale into the lungs daily., Disp: , Rfl: ??? spironolactone (Aldactone) 25 mg Tablet, TAKE 1 TABLET DAILY, Disp: 90 tablet, Rfl: 3 ??? flecainide (TAMBOCOR) 50 mg Tablet, Take 50 mg by mouth 2 times daily., Disp: , Rfl: ??? levalbuterol (XOPENEX HFA) 45 mcg/actuation HFA Aerosol Inhaler, Inhale 1-2 puffs into the lungsevery 4 hours as needed., Disp: , Rfl: ??? ascorbic acid, vitamin C, (VITAMIN C) 1,000 mg Tablet, Take by mouth daily., Disp: , Rfl: ??? amLODIPine (NORVASC) 5 mg Tablet, Take 5 mg by mouth daily., Disp: , Rfl: ??? losartan (COZAAR) 50 mg Tablet, Take 100 mg by mouth nightly., Disp: , Rfl: ??? Calcium 500 mg Tab, Take 1 tablet by mouth 2 times daily., Disp: , Rfl: ??? atorvastatin (LIPITOR) 10 mg tablet, Take 10 mg by mouth daily., Disp: , Rfl: ??? Cholecalciferol, Vitamin D3, (VITAMIN D) 1,000 unit Cap, Take 2,000 Units by mouth daily., Disp:, Rfl: ??? SUMAtriptan (IMITREX) 25 mg tablet, Take 50 mg by mouth as needed., Disp: , Rfl: ??? DOCUSATE SODIUM (COLACE ORAL), , Disp: , Rfl: ??? Cod Liver Oil Cap, , Disp: , Rfl: Allergies Allergen Reactions ??? Codeine Phosphate Physical exam: Patient Vitals for the past 24 hrs: Pulse BP 11/05/20 1535 65 127/71 11/05/20 1536 63 139/70 normal color No distress noted during this telehealth encounter U/A: Urine sediment: A/P: The patient has well controlled BP Her Renal function is normal buy her most recent eGFR and she has no complication of CKD, no secondary hyperparathyroidism or anemia Her only complaint is intermittent ankle swelling, we discussed dietary salt content and the recommendation was made to have less ham which is rich on salt The patient has unchanged mild hyponatremia, her prescription of spironolactone was renewed as the diuretic least likely to cause hyponatremia Follow up was discussed RTc in a year with labs documented in this encounter Plan of Treatment Scheduled Orders Name Type Priority Associated Diagnoses Order S chedule Basic Metabolic Panel Lab STAT Essential hypertens ion Expected: 08/07/2021 (non-fasting) (Approximate), Expires: 07/08/2022 PTH Lab STAT Essential hypertension Expec makenzie: 08/07/2021 (Approximate), Expires: 07/08/2022 Albumin Level Lab STAT Essential hypertension Expe cted: 08/07/2021 (Approximate), Expires: 07/08/2022 Phosphorus Lab STAT Essential hypertension Expec makenzie: 08/07/2021 (Approximate), Expires: 07/08/2022 documented as of this encounter Visit Diagnoses Diagnosis Essential hypertension Unspecified essential hypertension documented in this encounter Care Teams Chief Of Internal Medicine Relationship Specialty Start Date End Date Uyen Gerard MD PCP - General 07/01/13 [address] [place] [address] documented as of this encounter
--- OUTSIDE RECORDS SUMMARY | 2022-03-17 16:40 | XMS_ITS | Encounter Summary ---
:1935 Author Organization [facility] [place] [address] Care Team Providers Name Role Phone Michael Perez MD Primary Care Provider Encounter Details Date Type Department Care Team Description 03/11/2013 Hospital Encounter Laboratory Ming Carter Peripheral edema; [facility] MD Ezra COPD (chronic obstructive pulmonary dise ase) [place], [place] [facility] [id number] [address] [phone] ,[facility] [address] [place] [address] Social History Tobacco Use Types Packs/Day Years Used Date Never Smoker Smokeless Tobacco: Never Used Alcohol Use Standard Drinks/Week Comments Yes 7 (1 standard drink = 0.6 oz pure alcoho l) Sex Assigned at Date Recorded Female 03/31/2021 2:10 PM EDT documented as of this encounter Medications at Time of Discharge Medication Sig Dispensed Refills Start Date End Date Calcium 500 mg Tab Take 1 tablet by 0 mouth 2 times daily. atorvastatin (LIPITOR) Take 10 mg by mouth 0 10 mg tablet daily. cholecalciferol, Vitamin Take 1,000 Units by 0 D3, 25 mcg (1,000 unit) mouth daily. Capsule SUMAtriptan (Imitrex) 25 Take 50 mg by mouth 0 mg Tablet as needed. DOCUSATE SODIUM (COLACE 0 01/02/2009 ORAL) albuterol (PROVENTIL Inhale 2 puffs into 1 Inhaler 11 201204/10/2013 HFA;VENTOLIN HFA) 90 the lungs every 4 mcg/actuation inhaler hours as needed for Wheezing for 30 days. Use with spacer tiotropium (SPIRIVA) 18 Inhale 1 capsule 90 capsule 3 201102/24/2019 mcg inhalation into the lungs capsuleIndications: daily. Medication refill metoprolol (LOPRESSOR) Take 50 mg by mouth 0 03/02/2015 100 mg tablet 2 times daily. meclizine (ANTIVERT) 25 Take 25 mg by mouth 0 03/02/2015 mg tablet 3 times daily as needed. [id number]-[id number] Take 1 tablet by 0 03/02/2015 ine (FIORINAL) 50-325-40 mouth every 4 hours mg per tablet as needed. Cod Liver Oil Cap 0 01/02/2009 021 documented as of this encounter Plan of Treatment Not on filedocumented as of this encounter Procedures Procedure Name Priority Date/Time Associated Diagnosis Comme nts BASIC METABOLIC Routine 03/11/2013 11:15 AM Peripheral e anuj Results for this PANEL (NON-FASTING) EDT COPD (chronic procedu re are in obstructive the results pulmonary disease) section. documented in this encounter Results (ABNORMAL) Basic Metabolic Panel (non-fasting) (03/11/2013 11:15 AM EDT) athologist Signature Glucose Lvl 83 60 - 199 CERNER mg/dL MILLENNIUM Comment: Diabetes: >=200 mg/dL plus symp toms BUN 19 (H) 8 - 18 mg/dL CERNER MILLENNIUM Creatinine 1.07 0.70 - 1.20 mg/dL CERNER MILL ENNIUM Comment: Please note that the pediatric reference intervals supplied above were not validated at [facility]. Results from pediatri c patients should be [...] Organization Address City/State/ZIP [place] [address] LANIE CHARLESIUM documented in this encounter Visit Diagnoses Diagnosis Peripheral edema Edema COPD (chronic obstructive pulmonary dise ase) Chronic airway obstruction, not elsewher e classified documented in this encounter Care Teams Retail Shift Leader Relationship Specialty Start Date End Date Michael Perez MD PCP - General 03/11/13 03/13/13 documented as of this encounter
--- OUTSIDE RECORDS SUMMARY | 2022-03-17 16:40 | XMS_ITS | Encounter Summary ---
:1935 Author Organization [facility] [place] [address] Care Team Providers Name Role Phone Uyen Gerard MD Primary Care Provider Encounter Details Date Type Department Care Team Description 08/15/2019 Office Visit Nephrology Hypertension Nicolás Gallagher, Stage 3 chronic at [facility] MD kidney disease [place] [address] NE[address]Y DEPT. [phone] [place], [place] [address] Social History Tobacco Use Types Packs/Day Years Used Date Never Smoker Smokeless Tobacco: Never Used Alcohol Use Standard Drinks/Week Comments Yes 7 (1 standard drink = 0.6 oz pure alcoho l) Sex Assigned at Date Recorded Female 03/31/2021 2:10 PM EDT documented as of this encounter Last Filed Vital Signs Vital Sign Reading Time Taken Comments Blood Pressure 123/62 08/15/2019 1:06 PM EST Pulse 72 08/15/2019 1:06 PM EST Temperature - - Respiratory Rate - - Oxygen Saturation 96% 08/15/2019 1:06 PM EST Inhaled Oxygen Concentration - - Weight 63.3 kg (139 lb 9.6 oz) 08/15/2019 1:06 PM EST Height 162.6 cm (5' 4.02) 08/15/2019 1:06 PM EST Body Mass Index 23.95 08/15/2019 1:06 PM EST documented in this encounter Progress Notes Nicolás Gallagher MD - 08/15/2019 1:30 PM EST 84 y/o woman for follow up of HTN and CKD The patient returns to clinic with her She is feeling well, except the tips of her fingers sometimes get cold No dizziness, no chest pain, no palpitations, no dyspnea No urine changes, the remaining review of systems was negative The patient has been making somew dietary changes according to DASH Medications: Current Outpatient Medications: ??? spironolactone (ALDACTONE) 25 mg Tablet, Take 1 tablet by mouth daily., Disp: 30 tablet, Rfl: 0 ??? flecainide (TAMBOCOR) 50 mg Tablet, Take 50 mg by mouth 2 times daily., Disp: , Rfl: ??? metoprolol (LOPRESSOR) 100 mg Tablet, Take 100 mg by mouth daily. Patient takes in the morning, Disp: , Rfl: ??? metoprolol tartrate (LOPRESSOR) 50 mg Tablet, Take 50 mg by mouth nightly., Disp: , Rfl: ??? levalbuterol (XOPENEX HFA) [...] mg Tablet, Take 100 mg by mouth daily., Disp: , Rfl: ??? Calcium 500 mg [...] Allergen Reactions ??? Codeine Phosphate Physical exam: Most Recent Vitals: 08/15/19 1306 BP: 123/62 Pulse: 72 SpO2: 96% normal color Slim Looking younger than her age Lungs clears Heart regular rhythm, no rub, no murmur No costophrenic angle tenderness Abdomen soft, non tender Limbs no edema U/A: 1.005 pH 7 prot trace blood neg Urine sediment: few squamous epithelial cells Labs: Results for TALITA VELASCO ( ) as of 08/15/2019 18:27 Ref. Range 08/15/2019 12:00 WBC Latest Ref Range: 4.0 - 9.5 x10(3)/mcL 9.3 RBC Latest Ref Range: 4.00 - 5.21 x10(6)/mcL 4.64 Hemoglobin Latest Ref Range: 11.7 - 15.5 gm/dL 13.7 Hematocrit Latest Ref Range: 35.7 - 45.8 % 41.2 MCV Latest Ref Range: 82.6 - 94.4 fL 88.8 MCH Latest Ref Range: 27.1 - 32.0 pg 29.5 MCHC Latest Ref Range: 31.7 - 35.0 gm/dL 33.3 RDWSD Latest Ref Range: 37.0 - 46.0 fL 42.2 RDWCV Latest Ref Range: 11.5 - 14.1 % 12.9 Platelets Latest Ref Range: 145 - 357 x10(3)/mcL 277 MPV Latest Ref Range: 7.6 - 12.9 fL 9.1 nRBC % Auto Latest Units: % 0.0 nRBC Abs Auto Latest Ref Range: 0.000 - 0.000 x10(3)/mcL 0.000 Neutr Abs (ANC) Latest Ref Range: 1.70 - 6.10 x10(3)/mcL 6.18 (H) Neutrophils % Latest Units: % 66.6 Immature Gran % Latest Units: % 0.60 Lymphocytes % Latest Units: % 17.9 Monocytes % Latest Units: % 12.4 Eosinophils % Latest Units: % 1.5 Basophils % Latest Units: % 1.0 Miriam Gran Abs Latest Ref Range: 0.00 - 0.04 x10(3)/mcL 0.06 (H) Lymphocytes Abs Latest Ref Range: 0.9 - 3.2 x10(3)/mcL 1.7 Monocyte Abs Latest Ref Range: 0.3 - 0.9 x10(3)/mcL 1.2 (H) Eosinophils Abs Latest Ref Range: 0.0 - 0.4 x10(3)/mcL 0.1 Basophils Abs Latest Ref Range: 0.0 - 0.1 x10(3)/mcL 0.1 Sodium Latest Ref Range: 135 - 145 mmol/L 130 (L) Potassium Latest Ref Range: 3.5 - 5.0 mmol/L 4.8 Chloride Latest Ref Range: 98 - 107 mmol/L 91 (L) CO2 Latest Ref Range: 22 - 31 mmol/L 30 Anion Gap Latest Ref Range: 5 - 15 mmol/L 9 BUN Latest Ref Range: 8 - 18 mg/dL 25 (H) Creatinine Latest Ref Range: 0.70 - 1.20 mg/dL 1.09 eGFR Latest Ref Range: >=60 mL/min/1.73 m?? 47 (L) eGFR Latest Ref Range: >=60 mL/min/1.73 m?? 55 (L) Glucose Lvl Latest Ref Range: 65 - 199 mg/dL 68 Calcium Latest Ref Range: 8.5 - 10.5 mg/dL 10.0 A/P: The patient has HTN, her BP is now well controlled, the spironolactone is well tolerated Would consider reducing the beta aftab which might contribute to this patients complaint of cold fingers at times Non pharmacological methods of BP control including DASH diet were discussed The patient has a normal creatinine but is in stage 3 CKD by eGFR, her urine sediment is normal and a spot urine tested negative for microalbuminuria which confers a favorable prognosis RTC in a year documented in this encounter Plan of Treatment Not on filedocumented as of this encounter Visit Diagnoses Diagnosis Stage 3 chronic kidney disease documented in this encounter Care Teams Logging Equipment Mechanic Relationship Specialty Start Date End Date Uyen Gerard MD PCP - General 07/01/13 [address] [place] [address] documented as of this encounter
--- OUTSIDE RECORDS SUMMARY | 2022-03-17 16:40 | XMS_ITS | Encounter Summary ---
:1935 Author Organization [facility] [place] [address] Care Team Providers Name Role Phone Uyen Gerard MD Primary Care Provider Reason for Visit Reason Comments Skin Check Encounter Details Date Type Department Care Team Description [facility]/02[facility]2015 [facility] Jared [facility] Seborrheic keratosis; [address] Dermal nevus of other site; Rex B DERMATOLOGY Solar lentigo [place], [place] [id number] [phone] Social History Tobacco Use Types Packs/Day Years Used Date Never Smoker Smokeless Tobacco: Never Used Alcohol Use Standard Drinks/Week Comments Yes 7 (1 standard drink = 0.6 oz pure alcoho l) Sex Assigned at Date Recorded Female 03/31/2021 2:10 PM EDT documented as of this encounter Patient Instructions Patient InstructionsKristie Madrigal LPN - 01/02/2015 11:03 AM EDT Images from the original note were not included. [facility] Seborrheic Keratosis: After Your Visit Your Care Instructions Seborrheic keratoses are raised skin growths that look scaly or warty. They usually look like they were stuck onto the skin. They most often grow in groups on the back or chest and are more common in older people. A seborrheic keratosis can be marshall or dark brown. A seborrheic keratosis is not a mole and never turns into cancer. But it is still a good idea to check your skin regularly. Sometimes a seborrheic keratosis can itch. Scratching it can cause it to bleed and sometimes even scar. A seborrheic keratosis is removed only if it bothers you. The doctor will freeze it or scrape it offwith a tool. The doctor can also use a laser to remove a seborrheic keratosis. Treatment usually results in normal-looking skin, but it can leave a light or dark candie or even a scar on the skin. Follow-up care is a robison part of your treatment and safety. Be sure to make and go to all appointments, and call your doctor if you are having problems. It's also a good idea to know your test results and keep a list of the medicines you take. How can you care for yourself at home? ?? If clothing irritates your seborrheic keratosis, cover it with a bandage to prevent rubbing and bleeding. ?? If you have a seborrheic keratosis removed, clean the area with soap and water two times a day unless your doctor gives you different instructions. Don't use hydrogen peroxide or alcohol, which can slow healing. ?? You may cover the wound with a thin layer of petroleum jelly, such as Vaseline, and a nonstick bandage. ?? Check all the skin on your body once a month for skin growths or other changes, such as color andfeel of the skin. ?? painter and paperhanger apprentice front of a full-length mirror. Look carefully at the front and back of your body. Then look at your right and left sides with your arms raised. ?? Bend your elbows and look carefully at your forearms, the back of your upper arms, and your palms. ?? Look at your feet, the soles of your feet, and the spaces between your toes. ?? Use a hand mirror to look at the back of your legs, the back of your neck, and your back, rear end (buttocks), and genital area. Part the hair on your head to look at your scalp. ?? If you see a change in a skin growth, contact your doctor. Look for: ?? A mole that bleeds. ?? A fast-growing mole. ?? A scaly or crusted growth on the skin. ?? A sore that will not heal. When should you call for help? Call your doctor now or seek immediate medical care if: ?? You have an area of normal skin that suddenly changes in shape, size, or how it looks. ?? Your skin is badly broken from scratching. ?? You have signs of infection such as: ?? Pain, warmth, or swelling in your skin. ?? Red streaks near a wound in your skin. ?? Pus coming from a wound in your skin. ?? A fever not due to the flu or other illness. Watch closely for changes in your health, and be sure to contact your doctor if: ?? You do not get better as expected. Where can you learn more? Visit our health information library at http://[employer] You can also view health information on [employer], your personal patient account. Log in or sign up today. Enter Z945 in the search box to learn more about Seborrheic Keratosis: After Your Visit. ?? [id number] [employer]. Care instructions adapted under license by [facility]. This care instruction is for use with your licensed healthcare professional. If you have questionsabout a medical condition or this instruction, always ask your healthcare professional. [employer] disclaims any warranty or liability for your use of this information. Content Version: 10.3.281769; Current as of: November 16, 2013 documented in this encounter Progress Notes Daniel Gupta MD - 01/02/2015 11:18 AM EDT Problem: Skin check. Jerri is a 79-year-old woman with a history of renal cell CA. She is referred for evaluation of a changing mole on the dorsum of her left foot that she thinks has been there for about 10 years. She is referred by Dr. Gerard. She states that she has had no history of skin cancer. She has had a fair amount of sun exposure over the year. She is here with her , Jay. Physical examination reveals a pleasant, 79-year-old woman who has a 1-cm, dark, [id number], evenly pigmented, symmetric, and regularly margined junctional melanocytic lesion on the mid central dorsum of the left foot. She has small stucco keratoses on the inner thighs. She has large 2.5- and even 3-cm seborrheic keratoses across the lower abdomen and across her back with a number of smaller, earlier-stage seborrheic keratoses aligning themselves in the skin tension lines of her back. Otherwise, careful examination of the head and neck, chest, back, hands, arms, forearms, thighs, and calves is benign. She has a large, 3.5-cm solar lentigo on the right adventism area; a small 8-mm seborrheic keratosis with a waxy, stuck-on, somewhat pedunculated appearance medially at the right immediate lateral canthus; and she has a 1.5-cm seborrheic keratosis developing on a solar lentigo on the left adventism area. Otherwise, examination of the head and neck, hands, arms, forearms, thighs, and calves, chest and back is benign. Assessment and Plan: 1. Benign seborrheic keratoses, stucco keratoses, and nevi. a. Patient reassured about benign skin examination. b. I encouraged sun avoidance precautions. c. We discussed the possibility of removal of her symptomatic seborrheic keratoses, but she defers today. 2. For stucco keratoses, prescription was given for Lac-Hydrin 2% cream, which she can apply on a b.i.d. basis to affected areas to help soften and make their manual removal a little easier. a. She knows that they will then grow back again and require repeat applications; 120 mL dispensed with five refills. b. Return to clinic here p.r.n. COPY: Uyen Gerard M.D. documented in this encounter Plan of Treatment Not on filedocumented as of this encounter Visit Diagnoses Diagnosis Stucco keratosis Acquired keratoderma Seborrheic keratosis Other seborrheic keratosis Dermal nevus of other site Benign neoplasm of other specified sites of skin Solar lentigo Other dyschromia documented in this encounter Care Teams Cattle Inspector Relationship Specialty Start Date End Date Uyen Gerard MD PCP - General 07/01/13 [address] [place] [address] documented as of this encounter
--- OUTSIDE RECORDS SUMMARY | 2022-03-17 16:40 | XMS_ITS | Encounter Summary ---
:1935 Author Organization [facility] [place] [address] Care Team Providers Name Role Phone Uyen Zamora MD Primary Care Provider Reason for Visit Reason Comments COPD Encounter Details Date Type Department Care Team Description 09/16/2013 Office Visit Pulmonology at [facility], Ming Briscoe, [facility] Dame Soledad Munguia MD (Primary Dx) [address] [place], [place] [facility] [phone] [place] [address] [place] [id number] Social History Tobacco Use Types Packs/Day Years Used Date Never Smoker Smokeless Tobacco: Never Used Alcohol Use Standard Drinks/Week Comments Yes 7 (1 standard drink = 0.6 oz pure alcoho l) Sex Assigned at Date Recorded Female 03/31/2021 2:10 PM EDT documented as of this encounter Last Filed Vital Signs Vital Sign Reading Time Taken Comments Blood Pressure 112/78 09/16/2013 3:13 PM EST Pulse 74 09/16/2013 3:13 PM EST Temperature - - Respiratory Rate - - Oxygen Saturation 96% 09/16/2013 3:13 PM EST RA Inhaled Oxygen Concentration - - Weight 63.1 kg (139 lb 3.2 oz) 09/16/2013 3:13 PM EST Height 162.6 cm (5' 4) 09/16/2013 3:13 PM EST Body Mass Index 23.89 09/16/2013 3:13 PM EST documented in this encounter Patient Instructions Patient InstructionsGoMing delgadillo MD - 09/16/2013 3:50 PM EST I am happy you are doing well from a respiratory standpoint. I see no need to change your treatments now. Please use Albuterol 2 puffs up to every four hours as needed for cough or wheeze. If you develop Bronchitis while away with cough, fever and phlegm (at least two of these three) please take a Z-pack 5 day course of antibiotics. If you develop DIARRHEA please stop this antibiotic andcall my office. If you have any new concerns, questions or symptoms, please call my office [phone]. documented in this encounter Progress Notes Ming Carter MD - 09/16/2013 3:39 PM EST Follow-up Office Visit Established Patent Chief Complaint Patient presents with ??? COPD Jerri Velasco is a 78 y.o. female returns for follow-up of well-compensated Severe COPD. (s/p Nephrectomy for Renal Cell CA) Routine activity tolerance has been fine. Breathing problems do not usually interfere with activities or selection of activities. Exercise is routinely performed- walks to her mailbox and stacks wood. The patient tells me that overall symptoms have been fine since last visit. Since the summer doing well. Uss Albuterol not daily and it does help her. No adverse effects from it. Less edema now; edema has gone away. Sleep has not been interrupted by respiratory symptoms. GERD symptoms are absent. PNDS has been a bother- lots of drip. Dry air is irritating. Flu vaccine already this year Triggers to symptoms typically include: Strenuous activity such as carrying things in her arms. Recent changes in living and / or working environment include: none. Allergies as of 09/16/2013 - Review Complete 03/11/2013 Allergen Reaction Noted ??? Codeine phosphate Current Medications include: Current Outpatient Prescriptions Medication Sig Dispense Refill ??? albuterol (PROVENTIL HFA;VENTOLIN HFA) 90 mcg/actuation inhaler Inhale 2 puffs into the lungs every 4 hours as needed. Use with spacer ??? Calcium 500 mg Tab Take 2 tablets by mouth daily. ??? atorvastatin (LIPITOR) 10 mg tablet Take 10 mg by mouth daily. ??? Cholecalciferol, Vitamin D3, (VITAMIN D) 1,000 unit Cap Take 2,000 Units by mouth daily. ??? tiotropium (SPIRIVA) [...] mouth 3 times daily as needed. ??? yxgrwsbphg-uswwbrd-lmtnvceh (FIORINAL) 50-325-40 mg per tablet Take 1 tablet by mouth every 4 hours as needed. ??? DOCUSATE SODIUM (COLACE ORAL) ??? Cod Liver Oil Cap Side effects related to these medications include none. Past Surgical History Procedure Date ??? Tonsillectomy ??? Total nephrectomy [address] White, right. No chemo, No [...] Stroke Mother mini ??? Thyroid Disease Daughter History Social History ??? Marital Status: N/A Spouse Name: N/A Number of Children: N/A ??? Years of Education: N/A Social History Main Topics ??? Smoking status: Never Smoker ??? Smokeless tobacco: Never Used ??? Alcohol Use: 4.2 oz/week 7 Glasses of wine per week ??? Drug Use: No ??? Sexually Active: Not on file Other Topics Concern ??? 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 Physical Exam: Body mass index is 23.89 kg/(m^2). Blood pressure 112/78, pulse 74, height 162.6 cm (5' 4), weight 63.141 kg (139 lb 3.2 oz), SpO2 96.00%, peak flow 275 L/min. _no_ oxygen therapy General appearance: fit and comfortabel trim Good eye contact, cooperation and recall. Eyes: FROM, anicteric. Ears: clear Nose: pink dry, clear Oral cavity: Dentition: upper dentition Mallampati airway: 2 Thrush: absent. Neck: No stridor, no bruit; no submandibular; anterior cervical or supraclav adenopathy. No thyroid abnormality appreciated Cor: no advential heart sounds heard, RRR Chest: No obvious use of accessory muscles of respiration. Hyperinflation is mild. Bilateral breath sounds are present and symmetric. Significant crackles are not appreciated. A prolonged expiratory phase is not present. Wheezes are absent. Abdomen: Soft and non-tender. No hepatosplenomegaly appreciated not obese Skin: no significant rash Extremities: Warm, well perfused No edema, cords, or clubbing Neuro: Attentive, Alert & oriented x3 No significant motor, gait or sensory deficit. Data: Chemistry Component Value Date/Time NA 134* 07/01/2013926 K 4.0 07/01/2013926 CL 97* 07/01/2013926 CO2 29 07/01/2013926 BUN 19* 07/01/2013926 CREATININE 1.07 07/01/2013926 Component Value Date/Time CALCIUM 9.2 07/01/2013926 ALKPHOS 65 07/01/2013926 AST 29 07/01/2013926 ALT 22 07/01/2013926 BILITOT 0.4 07/01/2013926 Lab Results Component Value Date SEDRATE 16 04/24/2011 Lab Results Component Value Date WBC 8.0 07/01/2013 HGB 13.9 07/01/2013 HCT 42.3 07/01/2013 MCV 90.0 07/01/2013 Pulmonary Functions Testing Results: I reviewed raw PFT data FEV-1 50% of predicted, approximately 1 L with evidence of obstruction Chest CAT scan March 2010. Coarse, reticular changes in the right middle lobe. No adenopathy. . IMPRESSION: 1. Moderate-severe COPD. The patient is doing remarkably well on minimal therapy. Her exercise capacity is good. No significant respiratory symptoms while using albuterol p.r.n. As above, she is pleased with her status and her activity tolerance is remarkably good. She plans on traveling to [facility] shortly. I think it would be prudent for her to carry with her a broad-spectrum antibiotic in case she gets a bronchitis. I discussed the indication and documented the instructions below. As she is doing well, stable, I think we can stretch out the time between visits and I will see her back in 8 months or sooner as needed. 2 s/p Nephrectomy PLAN/Patient instructions: 1- Patient was instructed to call this office at anytime if new respiratory symptoms (examples were discussed) or if new questions or concerns develop. I am happy you are doing well from a respiratory standpoint. I see no need to change your treatments now. Please use Albuterol 2 puffs up to every four hours as needed for cough or wheeze. If you develop Bronchitis while away with cough, fever and phlegm (at least two of these three) please take a Z-pack 5 day course of antibiotics. If you develop DIARRHEA please stop this antibiotic andcall my office. If you have any new concerns, questions or symptoms, please call my office [phone]. CC: UYEN ZAMORA MD Dear Dr. Zamora, I had the pleasure of seeing Jerri Velasco in the office September 16, 2013. She is our mutual 78-year-old patient with moderate-severe COPD. She is well compensated on just albuterol p.r.n. Her activity tolerance is remarkably well. I gave her azithromycin to have on hand if she gets sick with phlegm, cough, or fever while away in [place]. I will see her back at the end of the summer or sooner as needed. Additional details are attached. Thank you for allowing me to assist in this patient's care, documented in this encounter Plan of Treatment Not on filedocumented as of this encounter Visit Diagnoses Diagnosis COPD, moderate - Primary Chronic airway obstruction, not elsewher e classified documented in this encounter Care Teams Prosthodontist/Educator Relationship Specialty Start Date End Date Uyen Zamora MD PCP - General 07/01/[address] [facility] [address] [place] [address] documented as of this encounter
--- OUTSIDE RECORDS SUMMARY | 2022-03-17 16:40 | XMS_ITS | Encounter Summary ---
:1935 Author Organization [facility] [place] [address] Care Team Providers Name Role Phone Uyen Gerard MD Primary Care Provider Reason for Visit Reason Onset Date Comments Other 01/02/2014 Appointment Encounter Details Date Type Department Care Team Description 01/02/2014 Telephone Pulmonology at [facility], Ming Munguia, [place] (Appointment) Dame Soledad CAMARA [address] [place] [address] AT [facility] [phone] [place] [address] [place] [phone] (Wo rk) Social History Tobacco Use Types Packs/Day Years Used Date Never Smoker Smokeless Tobacco: Never Used Alcohol Use Standard Drinks/Week Comments Yes 7 (1 standard drink = 0.6 oz pure alcoho l) Sex Assigned at Date Recorded Female 03/31/2021 2:10 PM EDT documented as of this encounter Miscellaneous Notes Telephone Encounter - Danis Mcpherson - 01/02/2014 11:33 AM EDT No appointments available in April worked for patient. She schedule FUV for 03/31 at 2:50 pm. Telephone Encounter - Toña Castillo - 01/02/2014 11:16 AM EDT Patient calling today to book an [place], follow up appointment. documented in this encounter Plan of Treatment Not on filedocumented as of this encounter Visit Diagnoses Not on filedocumented in this encounter Care Teams Toll Gate Tender Relationship Specialty Start Date End Date Uyen Gerard MD PCP - General 07/01/[address] [facility] [address] [place] [address] documented as of this encounter
--- OUTSIDE RECORDS SUMMARY | 2022-03-17 16:40 | XMS_ITS | Encounter Summary ---
:1935 Author Organization [facility] [place] [address] Care Team Providers Name Role Phone Uyen Gerard MD Primary Care Provider Encounter Details Date Type Department Care Team Description 07/01/2013 Office Visit CAT Scan at [facility] [address] [place] [address] Social History Tobacco Use [...] Date/Time Associated Diagnosis Comme nts CT CHEST AND Routine 07/01/2013 10:49 AM Results for this ABDOMEN WO CONTRAST EDT procedur e are in the results section. documented in this encounter Results CT chest & abdomen WO contrast (07/01/2013 10:49 AM EDT) Anatomical Region Laterality Modality Chest, Abdomen Computed Tomography Specimen (Source) Anatomical Collection Method Collection Time Re ceived Time Location / / Volume Laterality 07/01/2013 10:49 AM EDT Narrative 07/01/2013 12:[address] Chest / Abdomen ??Without Contrast Clinical History RENAL CELL CANCER Comparison Comparison is made to the chest abdomen and pelvis CT studies of April 25, 2011 as well as the chest CT study of 2010. Technique 1) ??Chest CT: ??Axial multidetector hel ical images were obtained from the thoracic inlet through the hemidiaphragm s without contrast at the request of Dr. Sorenson And were reviewed in standard wi ndows as well as sagittal, axial and coronal planes 2) ??Abdominal CT: ??Axial multidetector helical images were obtained from the hemidiaphragms to the iliac crests follo wing oral contrast material. ??No intravenous contrast material was utiliz ed at the request of Dr. Sorenson. ??The study was reviewed in standard windows a s well as sagittal, axial coronal planes. Findings ? 1. Chest CT scan: ??Again noted a re subpleural interstitial changes with evidence of traction bronchiectasis whic h is more prominent in the upper lobes than the lower lobes although present di ffusely. ??There is no evidence of pulmonary parenchymal nodule of signific ance. ??The heart and mediastinal contours are unremarkable and there is n o evidence of adenopathy or pulmonary parenchymal nodule. ??There is a marked thoracic scoliosis with associated secondary degenerative change. ? 2. Abdominal CT scan: ??The liver , biliary ducts, pancreas and spleen are unremarkable. ??There are multiple calci fied gallstones present within the gallbladder. ??There has been a prior ri ght nephrectomy with evidence of compensatory hypertrophy of the left kid lencho. The visualized bowel is normal. ?? Vascular calcification and degenerative changes are present in the lumbar spine. ?? Impression ? 1. No evidence of metastatic dise ase. ? 2. Cholelithiasis without change. ? 3. Postoperative changes, status post right nephrectomy. ? 4. Scoliosis and secondary degene rative changes in the spine. ? 5. Evidence of interstitial lung disease as described, stable over the interval. Procedure Note Bismark Marx MD - 07/01/2013Forma tting of this note might be different from the original. Examination CT Chest / Abdomen Without Contrast Clinical History RENAL CELL CANCER Comparison Comparison is made to the chest abdomen and pelvis CT studies of April 25, 2011 as well as the chest CT study of 2010. Technique 1) Chest CT: Axial multidetector helical images were obtained from the thoracic inlet through the hemidiaphragm s without contrast at the request of Dr. Sorenson And were reviewed in standard wi ndows as well as sagittal, axial and coronal planes 2) Abdominal CT: Axial multidetector hel ical images were obtained from the hemidiaphragms to the iliac crests follo wing oral contrast material. No intravenous contrast material was utiliz ed at the request of Dr. Sorenson. The study was reviewed in standard windows a s well as sagittal, axial coronal planes. Findings 1. Chest CT scan: Again noted are subpl eural interstitial changes with evidence of traction bronchiectasis whic h is more prominent in the upper lobes than the lower lobes although present di ffusely. There is no evidence of pulmonary parenchymal nodule of signific ance. The heart and mediastinal contours are unremarkable and there is n o evidence of adenopathy or pulmonary parenchymal nodule. There is a marked th oracic scoliosis with associated secondary degenerative change. 2. Abdominal CT scan: The liver, biliar y ducts, pancreas and spleen are unremarkable. There are multiple calcifi ed gallstones present within the gallbladder. There has been a prior righ t nephrectomy with evidence of compensatory hypertrophy of the left kid lencho. The visualized bowel is normal. Vascular calcification and degenerative changes are present in the lumbar spine. Impression 1. No evidence of metastatic disease. 2. Cholelithiasis without change. 3. Postoperative changes, status post r ight nephrectomy. 4. Scoliosis and secondary degenerative changes in the spine. 5. Evidence of interstitial lung diseas e as described, stable over the interval. Mirta Sorenson MD IMG CT ORDERABLES documented in this encounter Visit Diagnoses Not on filedocumented in this encounter Care Teams Doubling Machine Operator Relationship Specialty Start Date End Date Uyen Gerard MD PCP - General 07/01/13 [address] [address] [place] [address] documented as of this encounter
--- OUTSIDE RECORDS SUMMARY | 2022-03-17 16:40 | XMS_ITS | Encounter Summary ---
:1935 Author Organization [place] [place] [address] Care Team Providers Name Role Phone Lisa Murdock MD Primary Care Provider Reason for Visit Reason Comments Abnormal X-ray pulm lesion Encounter Details Date Type Department Care Team Description 06/03/2011 Initial consult Pulmonology at [facility] Goodman Ming Need for influenza vaccination (Primary Dx); Dame Soledad Munguia MD Post-nasal drip [address] [place], [place] [facility] [phone] [address] [phone] [id number] Social History Tobacco Use Types Packs/Day Years Used Date Never Smoker Alcohol Use Standard Drinks/Week Comments Yes 7 (1 standard drink = 0.6 oz pure alcoho l) Sex Assigned at Date Recorded Female 03/31/2021 2:10 PM EDT documented as of this encounter Last Filed Vital Signs Vital Sign Reading Time Taken Comments Blood Pressure 144/82 06/03/2011 9:45 AM EDT Pulse 76 06/03/2011 9:45 AM EDT Temperature - - Respiratory Rate - - Oxygen Saturation 96% 06/03/2011 9:45 AM EDT room ai r Inhaled Oxygen Concentration - - Weight 62 kg (136 lb 9.6 oz) 06/03/2011 9:45 AM EDT Height 162.6 cm (5' 4) 06/03/2011 9:45 AM EDT Body Mass Index 23.45 06/03/2011 9:45 AM EDT documented in this encounter Patient Instructions Patient InstructionsGoMing delgadillo MD - 06/03/2011 10:55 AM EDT Flonase one-two puffs each nostril daily Please try to obtain old Chest CT scans from prior to kidney surgery possibly [facility] or anywhere else Spiriva one puff per day Call with any questions documented in this encounter Progress Notes Ming Carter MD - 06/03/2011 10:51 AM EDT New Patient Consultation Patient's words: Chief Complaint Patient presents with ??? Abnormal X-ray pulm lesion Referring Provider: LISA MURDOCK MD Jerri Velasco is a 76 y.o. female who presents for evaluation and management of abnormal PFT, abnormal Chest CT and MCKENNA. Her dyspnea was first recognized with activity. Minor activity is not a problem. When she would exercise in [employer] she noticed it as early as Spring 2009. January 2011 she reported some MCKENNA to her PCP. She describes it as little dyspnea upon walking briskly on incline but not limitting at all. She was sent for a cardiology test which was fine, a PFT, and aroutine Chest CT. Had been exercising at [employer] regularly up until 9 months. Now exercising less than before because of local gyms closing. Chronic dry cough-she believes it is related to dripping from her sinuses. No wheeze heard in chest. She did feel very little dyspnea while she had a large kidney mass in place, her she states she was not breathing comfortably with her mass. As a youngster no asthma, no exercise problems. Was exposed to ETS as child. The patient has not had this problem in the past. Previous investigations toward explaining and resolving this problem include: -cardiac stress ECHO treadmill-reported it was fine -PFT Mild-Mod obstruction. FEV1 51% Routine activity tolerance has been fine. Breathing problems do not interfere with activities or selection of activities. Exercise is not routinely performed. She works in the yard, stacks wood, remains active. Triggers to symptoms typically include: vigorous exertion and high humidity. Exposed to chemicals used to kill wasps-this exposure caused her to cough and irritate her lungs. Believes there was some powder in the air. Sleep has not been interrupted by respiratory symptoms. GERD symptoms are absent. PNDS has been a bother, longstanding rhinorrhea. Does not take any med for this- rather uses tissues. FEVERS/sweats: none Joint pains: none No signif rash. Eyes - No diplopia, orbital pain, blurred vision ENT - No tinnitis, discharge. Hem/Lymph - No known anemia, blood dyscrasias, bruising, recurrent thrombophlebitis GI - No nausea, vomiting, hematemesis, melena, hematochezia. Appetite is fine - Denies dysuria, hematuria, Endo - No heat or cold intolerance, polydipsia, polyuria Neuro - infrequent headaches, no seizures Skin - No chronic rash, psoriasis, abnormal pigmentation, changing moles Psych - Denies depression, moodiness, difficulty sleeping or concentrating, forgetfulness Recent changes in living and / or working environment include: none. Allergies as of 06/03/2011 - Review Complete 06/03/2011 Allergen Reaction Noted ??? Codeine phos Current Medications include: Current outpatient prescriptions Medication Sig Dispense Refill ??? SUMAtriptan (IMITREX) 25 mg tablet Take 50 mg by mouth as needed. ??? metoprolol (LOPRESSOR) 100 mg tablet Take 50 mg by mouth 2 times daily. ??? atorvastatin (LIPITOR) 20 mg tablet ??? Calcium 500 mg Tab ??? DOCUSATE SODIUM (COLACE ORAL) ??? Cod Liver Oil Cap ??? meclizine (ANTIVERT) 25 mg tablet Take 25 mg by mouth 3 times daily as needed. ??? yiidelpsvd-fmnmlux-fsrkllpb (FIORINAL) 50-325-40 mg per tablet Take 1 tablet by mouth every 4 hours as needed. Side effects related to these medications include none. Past Surgical History Procedure Date ??? Tonsillectomy ??? Total nephrectomy [address] White, right. No chemo, No xrt. Past Medical History Diagnosis Date ??? Hypertension 06/02/2011 ??? Renal cell cancer 06/02/2011 ??? COPD (chronic obstructive pulmonary disease) 06/02/2011 ??? Rash Family History Problem Relation Age of Onset ??? Rheum Arthritis Maternal Grandmother ??? Heart Attack Paternal Grandmother ??? Hypertension Mother ??? Migraines Daughter ??? Stroke Mother mini ??? Thyroid Disease Daughter History Social History ??? Marital Status: N/A Spouse Name: N/A Number of Children: N/A ??? Years of Education: N/A Social History Main Topics ??? Smoking status: Never Smoker ??? Smokeless tobacco: Not on file ??? Alcohol Use: 4.2 oz/week 7 Glasses of wine per week ??? Drug Use: No ??? Sexually Active: Not on file Other Topics Concern ??? Not on file Social History Narrative Pt lives with her in a home. 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 200 L/min General appearance: meticulous, comfortable Good eye contact, cooperation and recall. Eyes: FROM, anicteric. Ears: clear Nose: polyp base of nasal passage on right Oral cavity: Dentition: normal, prosthetic silver roof of mouth Crowding of post pharynx: 2/4 Thrush: absent. Neck: No stridor, no bruit; no submandibular; anterior cervical or supraclav adenopathy Cor: RRR Chest: No obvious use of accessory muscles of respiration. Hyperinflation is not evident. Bilateral breath sounds are present and symmetric. Significant crackles are not appreciated. A prolonged expiratory phase is present. Wheezes are absent Abdomen: Soft and non-tender not obese Extremities: Warm, well perfused No edema, cords, or clubbing Neuro: Attentive No significant motor or sensory deficit. Data: Chemistry Component Value Date/Time NA 138 04/24/2011 10:24 K 4.1 04/24/2011 10:24 CL 101 04/24/2011 10:24 CO2 30 04/24/2011 10:24 BUN 24* 04/24/2011 10:24 CREATININE 1.15 04/24/2011 10:24 Component Value Date/Time CALCIUM 9.8 04/24/2011 10:24 ALKPHOS 60 04/24/2011 10:24 AST 40* 04/24/2011 10:24 ALT 39* 04/24/2011 10:24 BILITOT 0.4 04/24/2011 10:24 Lab Results Component Value Date SEDRATE 16 04/24/2011 Lab Results Component Value Date WBC 6.3 04/24/2011 HGB 14.2 04/24/2011 HCT 42.5 04/24/2011 MCV 86.4 04/24/2011: Chest ct Impression: Multiple, tiny nodules seen in both upper lobes not related to old granulomatous disease. Bilateral pleuroparenchymal scarring thought to be related to old inflammatory disease. I do not see any changes suspicious for metastatic disease related to the patient's renal carcinoma. Very small, right hilar lymph node, but no suspicious hilar or mediastinal adenopathy. Incidental solitary gallstone. CHEST CT 04-25-2011 compared to the prior studies of 04/09/09 and 03/20/10. There is evidence of coarse reticular change in the right middle lobe, laterally in the right lower lobe, and in the axillary segment of the right upper lobe which appears similar to the prior studies given differences in technique. No suspicious, new parenchymal nodules are present. There is a more confluent nodular area present along the pleural surface of the right middle lobe which measures approximately 17 mm in maximal diameter. No other definite pulmonary abnormalities are present. The lack of contrast material limits evaluation of the mediastinum, but no definite mediastinal or hilar adenopathy is present and the bony thorax appears intact. No other abnormalities are apparent. Scoliotic curvature of the thoracolumbar spine is again noted. IMPRESSION: Chronic interstitial/coarse reticular changes in both lungs as described, similar in distribution except for a new confluent nodular pleural abnormality present with dimensions as described above. No other changes are apparent. IMPRESSION: pnds Abnormal Chest ct, chronic. Chest Tube after nephrectomy. Need old chest ct scans prior to surgery. Old granuloma and old chest ct trauma. COPD/asthmma No glaucoma This 76-year-old female presents with some mild dyspnea in the setting of no history of tobacco use but status post right nephrectomy, early 2004. She recently had a negative echo cardiac stress test. At this point, issues that concern me include some postnasal drip associated with a polypoid inflammatory change in the Right side of her nose, abnormal chest CAT scan with inflammatory changes, principally on the right which are slightly worse this year versus a few years ago, obstructive lung disease with possible bronchodilator Responsiveness. In addition she has a history of untreated positive PPD. It sounds like she had quite an exposure as a school-aged child. 1. PNDS: Does not seem to be infectious. 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 She should do well with a topical inhaled steroid. 2. Abnormal chest CAT scan: These inflammatory changes could quite likely be granulomatous in nature secondary to past TB exposure. 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 She has had a positive PPD as recent as 10-20 years ago and has quite an exposure to explain it. Latent TB at this point does not need to be treated in this 76-year-old woman. Incidentally, her LFTs were found to be mildly elevated recently on screening studies performed by her mold preparer/oncologist, Dr. Sorenson. 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 To support the possibility that the chest tube contributed to these inflammatory chagnes, it would be worthwhile trying to get old chest CAT scans prior to 2005 surgery. She thinks it may have been done in the system and will be hard to obtain though. 3. Positive PPD with x-ray changes: I do not see clinical evidence of active tuberculosis disease. 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 4. COPD with possible bronchodilator response: Patient states that she thinks that she may not have improved significantly or at least symptomatically due to bronchodilators in the PFT lab. She thinks that the more she performed the required spirometric maneuvers her technique improved and her airflow is improved on that basis. I think she should do well with a long-acting bronchodilator such as Spiriva. This is once-a-day therapy that should be convenient and well tolerated. She specifically denies history of glaucoma. 40 minutes of this one hour spent counseling and discussing. PLAN: 1- Patient was instructed to call this office at anytime should they experience any new respiratory symptoms (examples were discussed) or if they have any new questions or concerns. Flonase one-two puffs each nostril daily Please try to obtain old Chest CT scans from prior to kidney surgery possibly [facility] or anywhere else Spiriva one puff per day Call with any questions Invited her family to call me anytime to discuss my thoughts. CC: MD Dr. Matthias MENDIOLA documented in this encounter Plan of Treatment Not on filedocumented as of this encounter Visit Diagnoses Diagnosis Need for influenza vaccination - Primary Need for prophylactic vaccination and in oculation against influenza Post-nasal drip Postnasal drip documented in this encounter Care Teams Technical Business Analyst Relationship Specialty Start Date End Date Lisa Murdock MD PCP - General 04/24/11 03/10/13 documented as of this encounter
--- OUTSIDE RECORDS SUMMARY | 2022-03-17 16:40 | XMS_ITS | Encounter Summary ---
:1935 Author Organization [facility] [address] Care Team Providers Name Role Phone Uyen Gerard MD Primary Care Provider Reason for Visit Consultation (Routine) - Specialty Diagnoses / Procedures Referred By Contact Refer red To Contact Nephrology Diagnoses HTN RENAL CELL CARCINOMA Uyen Gerard MD [facility] [address] [place] [address] [place] [id number] Referral ID Status Reason Start Date Expiration Date Visits V isits Requested Authorized [id number] Consult, 01/28/2019 01/28/2020 6 6 [facility] Encounter Details Date Type Department Care Team Description 02/24/2019 Office Visit Nephrology Nicolás Gallagher, Essential hypertension Hypertension at [facility] [place] [address] NEPHROLOGY DEPT. [phone] [place], [place] [address] Social History Tobacco Use Types Packs/Day Years Used Date Never Smoker Smokeless Tobacco: Never Used Alcohol Use Standard Drinks/Week Comments Yes 7 (1 standard drink = 0.6 oz pure alcoho l) Sex Assigned at Date Recorded Female 03/31/2021 2:10 PM EDT documented as of this encounter Last Filed Vital Signs Vital Sign Reading Time Taken Comments Blood Pressure 160/80 02/24/2019 1:50 PM EDT Pulse 65 02/24/2019 1:20 PM EDT Temperature - - Respiratory Rate - - Oxygen Saturation 98% 02/24/2019 1:20 PM EDT Inhaled Oxygen Concentration - - Weight 62.1 kg (137 lb) 02/24/2019 1:20 PM EDT Height 162.6 cm (5' 4) 02/24/2019 1:20 PM EDT Body Mass Index 23.52 02/24/2019 1:20 PM EDT documented in this encounter Progress Notes Nicolás Gallagher MD - 02/24/2019 1:30 PM EDT 84 y/o woman seen at the request of for uncontrolled HTN and CKD The patient was last seen in this clinic in January 2015 for CKD s/p right nephrectomy for RCC, returns accompanied by her and daughter The patient was hosiptalized in September of this year in [place] for uncontrolled HTN and atrial fibrillation, she remembers that her BP was as high as 180/100 The patients medications were increased, however, her BP has remained elevated and she was sent backto this clinic, The patient has been feeling weak and tired since her hospital stay in [place], she was recently seen in follow up by a print developer automatic in [place] wo recommended to decrease the Metroprolol The patient has her BP checked by auscultatory method by her who reports a home SBP in the 180-120 range This morning her BP was checked by her daughter who is an RN and was 147/70 The patients is planning to undergo a TAVR which causes a lot of stress for the couple The patient does not use nasal decongestianta, no NSAIDS, no OTC meds, no licorice Recent labs: 02/15/18 creat 1.06 k 3.9, normal U/A Past Medical Hx: COPD S/p right nephrectomy for RCC 2004 HTN Atrial fibrillation Fam Hx: grand mother and father had heart disease Soc Hx: No tobacco, one glass of wine per day, no licorice, spends winter in [place], daughter is RN, works with [employer] R/S: Once in a while headaches, no vision changes, no dizziness, no light headedness, no falls, no fever,no chills, no night sweats, no dyspnea, no cough, no chest pain, no palpitations, no heartburn, someconstipation at times, no diarrhea, no dysuria, no hematuria, no edema, no focal weakness, the remaining review of systems was negATIVE Medications: Current Outpatient Medications: ??? flecainide (TAMBOCOR) 50 mg Tablet, Take [...] Codeine Phosphate Physical exam: Most Recent Vitals: 02/24/19 1320 BP: (!) 174/97 Pulse: 65 SpO2: 98% Most Recent Vitals: 02/24/19 1350 BP: 160/80 Pulse: SpO2: both arms 160/80 Normal color Slim Dental implants Fundoscopy both eyes non dilated, no abnormality detected No ly,mphadenopathy No goiter No bruit Lungs clears, few ronchi 'heart regular rhythm, no rub, no murmur No costophrenic angle tenderness Abdomen soft, non tender, normal bowel sounds, no bruit and no organ enlargement detected Limbs no edema, no clubbing, no palmar erythema No tremor, U/A: 1.005 pH 7 prot trace blood trace Urine sediment: few epithelial cells Labs: Results for TALITA VELASCO ( ) as of 02/28/2019 17:47 Ref. Range 02/24/2019 14:00 02/24/2019 15:10 WBC Latest Ref Range: 4.0 - 9.5 x10(3)/mcL 9.1 RBC Latest Ref Range: 4.00 - 5.21 x10(6)/mcL 4.78 Hemoglobin Latest Ref Range: 11.7 - 15.5 gm/dL 14.0 Hematocrit Latest Ref Range: 35.7 - 45.8 % 42.7 MCV Latest Ref Range: 82.6 - 94.4 fL 89.3 MCH Latest Ref Range: 27.1 - 32.0 pg 29.3 MCHC Latest Ref Range: 31.7 - 35.0 gm/dL 32.8 RDWSD Latest Ref Range: 37.0 - 46.0 fL 45.1 RDWCV Latest Ref Range: 11.5 - 14.1 % 13.7 Platelets Latest Ref Range: 145 - 357 x10(3)/mcL 241 MPV Latest Ref Range: 7.6 - 12.9 fL 9.4 nRBC % Auto Latest Units: % 0.0 nRBC Abs Auto Latest Ref Range: 0.000 - 0.000 x10(3)/mcL 0.000 Neutr Abs (ANC) Latest Ref Range: 1.70 - 6.10 x10(3)/mcL 6.16 (H) Neutrophils % Latest Units: % 68.0 Immature Gran % Latest Units: % 0.40 Lymphocytes % Latest Units: % 18.3 Monocytes % Latest Units: % 10.4 Eosinophils % Latest Units: % 2.0 Basophils % Latest Units: % 0.9 Miriam Gran Abs Latest Ref Range: 0.00 - 0.04 x10(3)/mcL 0.04 Lymphocytes Abs Latest Ref Range: 0.9 - 3.2 x10(3)/mcL 1.7 Monocyte Abs Latest Ref Range: 0.3 - 0.9 x10(3)/mcL 0.9 Eosinophils Abs Latest Ref Range: 0.0 - 0.4 x10(3)/mcL 0.2 Basophils Abs Latest Ref Range: 0.0 - 0.1 x10(3)/mcL 0.1 Sodium Latest Ref Range: 135 - 145 mmol/L 132 (L) Potassium Latest Ref Range: 3.5 - 5.0 mmol/L 4.4 Chloride Latest Ref Range: 98 - 107 mmol/L 94 (L) CO2 Latest Ref Range: 22 - 31 mmol/L 26 Anion Gap Latest Ref Range: 5 - 15 mmol/L 12 BUN Latest Ref Range: 8 - 18 mg/dL 19 (H) Creatinine Latest Ref Range: 0.70 - 1.20 mg/dL 0.97 eGFR Latest Ref Range: >=60 mL/min/1.73 m?? 54 (L) eGFR Latest Ref Range: >=60 mL/min/1.73 m?? 63 Glucose Lvl Latest Ref Range: 65 - 199 mg/dL 92 Calcium Latest Ref Range: 8.5 - 10.5 mg/dL 9.4 Magnesium Latest Ref Range: 0.69 - 1.07 mmol/L 0.85 Uric Acid Latest Ref Range: 2.5 - 6.5 mg/dL 4.5 Albumin Latest Ref Range: 3.2 - 5.2 gm/dL 3.9 PTH Latest Ref Range: 15 - 65 pg/mL 37 Aldosterone Latest Ref Range: <=21 ng/dL 5.8 Renin Activity Latest Units: ng/ml/hr <0.6 Alb/Cr Ratio, Random Latest Ref Range: 0 - 29 mcg/mg Cr Not Calculated U Albumin Conc, Random Latest Units: mg/L <3.0 U Creatinine Latest Units: mg/dL 26 24hr BP monitoring: Average BP 147/85 HR 63/min (range 119-165/68-107, HR 68-107/min), no nighttime dip A/P; The patient has reportedly poorly controlled HTN with reported home BP readings ranging from normal to elevated No microalbuminuria, no apparent retinopathy and no known LVH 24hr BP monitoring was obtained and confirms suboptimal BP control with peal readings in same range as during office visits and no hypotensive episodes reported renin and aldosterone levels were low, in fact renin was inadequately low as it should have been elevated because of Losartan, however the aldosterone level was lower than to be expected with primary hyperaldosteronism Because of suboptimal P control on two vasodilators and a beta aftab the addition of a diuretic isindicated The patient has mild hyponatremia which could be made worse by a thiazide, for this reason recommendto use spironolactone as a diuretic least likely to cause hyponatremia Discussed over the phone as result were back and a decision was made to start on spironolactone 25mgin the morning Recommended a blood test with a basic metabolic profile in 1-2 weeks, order was placed Also recommended to take Losartan at night instead of in the morning to promote reestablishment of the normal nighttime BP dip Non pharmacologic methods for BP control were discussed including dietary nitrates introduced patient to www. Nhlbi.nih.gov website for DASH diet RTC in 4 months Whitney Luna CMA - 02/24/2019 1:30 PM EDT Per request Dr Gallagher, 24 hour Blood Pressure monitor put on patient. Patient given instruction about monitor, and will call if has questions/problems. Patient given box with paid UPS label to returnmonitor via UPS for download of report from monitor. Patient verbalized understanding, and was in agreement with this plan. documented in this encounter Plan of Treatment Not on filedocumented as of this encounter Procedures Procedure Name Priority Date/Time Associated Diagnosis Comme nts PTH Routine 02/24/2019 3:10 PM Essential Results f or this EDT hypertension procedure are i n the results section. HEMOGRAM Routine 02/24/2019 3:10 PM Essential Results f or this EDT hypertension procedure are i n the results section. DIFFERENTIAL, Routine 02/24/2019 3:10 PM Essential Results for this AUTOMATED EDT hypertension procedure are i n the results section. ALDOSTERONE Routine 02/24/2019 3:10 PM Essential Results f or this EDT hypertension procedure are i n the results section. RENIN ACTIVITY Routine 02/24/2019 3:10 PM Essential Results for this EDT hypertension procedure are i n the results section. CBC (WITH DIFF) Routine 02/24/2019 3:10 PM Essential EDT hypertension URIC ACID Routine 02/24/2019 3:10 PM Essential Results f or this EDT hypertension procedure are i n the results section. MAGNESIUM Routine 02/24/2019 3:10 PM Essential Results f or this EDT hypertension procedure are i n the results section. ALBUMIN LEVEL Routine 02/24/2019 3:10 PM Essential Results for this EDT hypertension procedure are i n the results section. BASIC METABOLIC Routine 02/24/2019 3:10 PM Essential Result s for this PANEL (NON-FASTING) EDT hypertension procedur e are in the results section. U ALBUMIN/CRE RATIO Routine 02/24/2019 2:00 PM Essential Re sults for this EDT hypertension procedure are i n the results section. documented in this encounter Results (ABNORMAL) Basic Metabolic Panel (non-fasting) (08/15/2019 12:00 PM EST) athologist Signature Glucose Lvl 68 65 - [address] [facility] mg/dL [facility] Comment: Diabetes: >=200 mg/dL plus symp toms BUN 25 (H) 8 - 18 mg/dL [facility] Creatinine 1.09 0.70 - 1.20 mg/dL [facility] Sodium 130 (L) 135 - 145 mmol/L [facility] Potassium 4.8 3.5 - 5.0 mmol/L [facility] Comment: Please note: ??Patients with WBC >100,00 0 may have falsely elevated Potassium levels. ??For accurate Potassium quantif ication in these patients send serum separator tube (gold top) for subsequent determinations. ??Contact the Clinical Chemistry Laboratory if there are any qu estions. Chloride 91 (L) 98 - 107 mmol/L [facility] CO2 30 22 - 31 mmol/L [facility] Anion Gap 9 5 - 15 mmol/L [facility] Calcium 10.0 8.5 - 10.5 mg/dL [facility] Estimated GFR 47 (L) >=60 mL/min/1.73 m?? [facility] Comment: The eGFR was calculated using the CKD-EP I equation. As with all creatinine based estimates of kidney function, eGFR values calculated with the CKD-EPI equation are not accurate in patients wi th acute kidney failure, extremes of body mass or the acutely ill. [email or web address] eGFR 55 (L) >=60 mL/min/1.73 m?? [facility] Comment: The eGFR was calculated using the CKD-EP I equation. As with all creatinine based estimates of kidney function, eGFR values calculated with the CKD-EPI equation are not accurate in patients wi th acute kidney failure, extremes of body mass or the acutely ill. [email or web address] [place] Specimen Anatomical Collection Method Collection Time Receive d Time (Source) Location / / Volume Laterality Blood specimen 08/15/2019 12:00 9 (specimen) PM EST 12:09 PM EST Resulting Agency Comment Spec In Lab Nicolás Gallagher MD CHEMISTRY ORDERABLES Performing Organization Address City/State/[place] [address] (ABNORMAL) Basic Metabolic Panel (non-fasting) (03/17/2019 12:47 PM EDT) P athologist Signature Glucose Lvl 79 65 - [address] [facility] mg/dL [facility] Comment: Diabetes: >=200 mg/dL plus symp toms BUN 21 (H) 8 - 18 mg/dL [facility] Creatinine 1.01 0.70 - 1.20 mg/dL [facility] Sodium 136 135 - 145 mmol/L [facility] Potassium 4.4 3.5 - 5.0 mmol/L [facility] Comment: Please note: ??Patients with WBC >100,00 0 may have falsely elevated Potassium levels. ??For accurate Potassium quantif ication in these patients send serum separator tube (gold top) for subsequent determinations. ??Contact the Clinical Chemistry Laboratory if there are any qu estions. Chloride 99 98 - 107 mmol/L [facility] CO2 29 22 - 31 mmol/L [facility] Anion Gap 8 5 - 15 mmol/L [facility] Calcium 9.2 8.5 - 10.5 mg/dL [facility] Estimated GFR 52 (L) >=60 mL/min/1.73 m?? [facility] Comment: The eGFR was calculated using the CKD-EP I equation. As with all creatinine based estimates of kidney function, eGFR values calculated with the CKD-EPI equation are not accurate in patients wi th acute kidney failure, extremes of body mass or the acutely ill. [email or web address] [place] eGFR 60 >=60 mL/min/1.73 m?? [facility] Comment: The eGFR was calculated using the CKD-EP I equation. As with all creatinine based estimates of kidney function, eGFR values calculated with the CKD-EPI equation are not accurate in patients wi th acute kidney failure, extremes of body mass or the acutely ill. [email or web address] [place] Specimen Anatomical Collection Method Collection Time Receive d Time (Source) Location / / Volume Laterality Blood specimen 03/17/2019 12:47 9 (specimen) PM EDT 12:52 PM EDT Resulting Agency Comment Spec In Lab Nicolás Gallagher MD CHEMISTRY ORDERABLES Performing Organization Address City/State/[place] [address] (ABNORMAL) Differential, Automated (02/24/2019 3:10 PM EDT) [facility] gist Method Time Signature Neutrophils % 68.0 % [facility] Neutr Abs (ANC) 6.16 (H) 1.70 - [facility] 6.10 [facility] x10(3)/[facility] LABORATORY Lymphocytes % 18.3 % [facility] Lymphocytes Abs 1.7 0.9 - 3.[address] [facility] x10(3)/[facility] LABORATORY Monocytes % 10.4 % [facility] Monocyte Abs 0.9 0.3 - 0.[address] [facility] x10(3)/[facility] LABORATORY Eosinophils % 2.0 % [facility] Eosinophils Abs 0.2 0.0 - 0.[address] [facility] x10(3)/[facility] LABORATORY Basophils % 0.9 % [facility] Basophils Abs 0.1 0.0 - 0.[address] [facility] x10(3)/[facility] LABORATORY Immature Gran % 0.40 % [facility] Comment: Immature granulocytes(IG's)percentage an d absolute count will include metamyelocytes, myelocytes, and promyelo cytes. Blood smears from CBCs yielding IG's will be scanned manually for concor dance. If this scan disagrees with the automated IG or if promyelocytes are not ed, a manual differential will be performed. Miriam Gran Abs 0.04 0.00 - 0.04 x10(3)/[facility] Specimen Anatomical Collection Method Collection Time Receive d Time (Source) Location / / Volume Laterality Blood specimen 02/24/2019 3:10 PM 019 3:17 (specimen) EDT PM EDT Resulting Agency Comment Spec In Lab Nicolás Gallagher MD HEMATOLOGY ORDERABLES Performing Organization Address City/State/[place] [address] Hemogram (02/24/2019 3:10 PM EDT) P athologist Signature WBC 9.1 4.0 - 9.[address] [facility] x10(3)/[facility] LABORATORY RBC 4.78 4.00 - [facility] 5.21 [facility] x10(6)/[facility] LABORATORY Hemoglobin 14.0 11.7 - [facility] 15.5 gm/dL [facility] Hematocrit 42.7 35.7 - [facility] 45.8 % [facility] MCV 89.3 82.6 - [facility] 94.4 fL [facility] MCH 29.3 27.1 - [facility] 32.0 pg [facility] MCHC 32.8 31.7 - JUAN MANUEL PATEL 35.0 gm/dL [facility] Platelets 241 145 - [address] [facility] x10(3)/[facility] LABORATORY RDWSD 45.1 37.0 - JUAN MANUEL AMANDA 46.0 [facility] LABORATORY RDWCV 13.7 11.5 - [facility] AMANDA 14.1 % [facility] MPV 9.4 7.6 - 12.9 [facility] LABORATORY nRBC % Auto 0.0 % [facility] nRBC Abs Auto 0.000 0.000 - [facility] 0.000 [facility] x10(3)/[facility] LABORATORY Specimen Anatomical Collection Method Collection Time Receive d Time (Source) Location / / Volume Laterality Blood specimen 02/24/2019 3:10 PM 019 3:17 (specimen) EDT PM EDT Resulting Agency Comment Spec In Lab Nicolás Gallagher MD HEMATOLOGY ORDERABLES Performing Organization Address City/State/[place] [address] Aldosterone (02/24/2019 3:10 PM EDT) athologist Signature Aldosterone 5.8 <=21 ng/dL [facility] Comment: ADDITIONAL INFORMATIO N Reference range for patients 11 years an d older is based on upright A.M. collection from subjects wi thout sodium restrictions. This test was developed and its performa nce characteristics determined by [facility] in a manner co nsistent with CLIA requirements. This test has not been katy ared or approved by the U.S. Food and Drug Administration. Test Performed by: [facility] [address] [place], [place] [address] Specimen Anatomical Collection Method Collection Time Receive d Time (Source) Location / / Volume Laterality Blood specimen 02/24/2019 3:10 PM 019 3:46 (specimen) EDT PM EDT Resulting Agency Comment Spec In Lab Nicolás Gallagher MD CHEMISTRY ORDERABLES Performing Organization Address City/[facility]/ZIP Code Phon e Number [place] [id number] Renin Activity (02/24/2019 3:10 PM EDT) P athologist Signature Renin Activity <0.6 ng/ml/hr [facility] Comment: REFERENCE VALUE------ (Peripheral vein specimen) Na-deplete, upright: ??Mean: 5.9 ??Range: 2.9-10.8 Na-replete, upright: ??Mean: 1.0 ??Range: < or =0.6-3.0 ADDITIONAL INFORMATIO N Testing performed by Liquid Chromatograp hy-Tandem Mass Spectrometry (LC-MS/MS). This test was developed and its performa nce characteristics determined by [facility] in a manner co nsistent with CLIA requirements. This test has not been katy ared or approved by the U.S. Food and Drug Administration. Test Performed by: [facility] [address] [place], [place] [address] Specimen Anatomical Collection Method Collection Time Receive d Time (Source) Location / / Volume Laterality Blood specimen 02/24/2019 3:10 PM 019 3:55 (specimen) EDT PM EDT Resulting Agency Comment Spec In Lab Nicolás Gallagher MD CHEMISTRY ORDERABLES Performing Organization Address City/[facility]/ZIP [place] [address] [facility] [address] Magnesium (02/24/2019 3:10 PM EDT) athologist Signature Magnesium 0.85 0.69 - 1.[address] [facility] mmol/L [facility] Specimen Anatomical Collection Method Collection Time Receive d Time (Source) Location / / Volume Laterality Blood specimen 02/24/2019 3:10 PM 019 3:17 (specimen) EDT PM EDT Resulting Agency Comment Spec In Lab Nicolás Gallagher MD CHEMISTRY ORDERABLES Performing Organization Address City/State/[place] [address] PTH (02/24/2019 3:10 PM EDT) P athologist Signature PTH 37 15 - 65 [facility] AMANDA pg/mL [facility] Specimen Anatomical Collection Method Collection Time Receive d Time (Source) Location / / Volume Laterality Blood specimen 02/24/2019 3:10 PM 019 3:17 (specimen) EDT PM EDT Resulting Agency Comment Spec In Lab Nicolás Gallagher MD CHEMISTRY ORDERABLES Performing Organization Address City/[facility]/[place] [address] Albumin Level (02/24/2019 3:10 PM EDT) P athologist Signature Albumin 3.9 3.2 - 5.2 [facility] AMANDA gm/dL [facility] Specimen Anatomical Collection Method Collection Time Receive d Time (Source) Location / / Volume Laterality Blood specimen 02/24/2019 3:10 PM 019 3:17 (specimen) EDT PM EDT Resulting Agency Comment Spec In Lab Nicolás Gallagher MD CHEMISTRY ORDERABLES Performing Organization Address City/[facility]/[place] [address] Uric acid (02/24/2019 3:10 PM EDT) P athologist Signature Uric Acid 4.5 2.5 - 6.5 [facility] AMANDA mg/dL [facility] Specimen Anatomical Collection Method Collection Time Receive d Time (Source) Location / / Volume Laterality Blood specimen 02/24/2019 3:10 PM 019 3:17 (specimen) EDT PM EDT Resulting Agency Comment Spec In Lab Nicolás Gallagher MD CHEMISTRY ORDERABLES Performing Organization Address City/[facility]/[place] [address] (ABNORMAL) Basic Metabolic Panel (non-fasting) (02/24/2019 3:10 PM EDT) athologist Signature Glucose Lvl 92 65 - [address] [facility] mg/dL [facility] Comment: Diabetes: >=200 mg/dL plus symp toms BUN 19 (H) 8 - 18 mg/dL [facility] Creatinine 0.97 0.70 - 1.20 mg/dL [facility] Sodium 132 (L) 135 - 145 mmol/L [facility] Potassium 4.4 3.5 - 5.0 mmol/L [facility] Comment: Please note: ??Patients with WBC >100,00 0 may have falsely elevated Potassium levels. ??For accurate Potassium quantif ication in these patients send serum separator tube (gold top) for subsequent determinations. ??Contact the Clinical Chemistry Laboratory if there are any qu estions. Chloride 94 (L) 98 - 107 mmol/L [facility] CO2 26 22 - 31 mmol/L [facility] Anion Gap 12 5 - 15 mmol/L [facility] Calcium 9.4 8.5 - 10.5 mg/dL [facility] Estimated GFR 54 (L) >=60 mL/min/1.73 m?? [facility] Comment: The eGFR was calculated using the CKD-EP I equation. As with all creatinine based estimates of kidney function, eGFR values calculated with the CKD-EPI equation are not accurate in patients wi th acute kidney failure, extremes of body mass or the acutely ill. [email or web address] eGFR 63 >=60 mL/min/1.73 m?? [facility] Comment: The eGFR was calculated using the CKD-EP I equation. As with all creatinine based estimates of kidney function, eGFR values calculated with the CKD-EPI equation are not accurate in patients wi th acute kidney failure, extremes of body mass or the acutely ill. [email or web address] Specimen Anatomical Collection Method Collection Time Receive d Time (Source) Location / / Volume Laterality Blood specimen 02/24/2019 3:10 PM 2 019 3:17 (specimen) EDT PM EDT Resulting Agency Comment Spec In Lab Nicolás Gallagher MD CHEMISTRY ORDERABLES Performing Organization Address City/[facility]/ZIP Code Phon e Number [place] [id number] U Albumin/Cre Ratio (02/24/2019 2:00 PM EDT) [facility] Method Time Signature Alb/Cr Ratio, Not Calculated 0 - 29 [facility] Random mcg/mg Cr [facility] Comment: Reference Ranges: <30 mcg/mg: [...] 2, 357? 362 U Albumin Conc, Random <3.0 mg/L [facility] U Creatinine 26 mg/dL [facility] Specimen Anatomical Collection Method Collection Time Receive d Time (Source) Location / / Volume Laterality Urine specimen 02/24/2019 2:00 PM 019 2:09 (specimen) EDT PM EDT Resulting Agency Comment Spec In Lab Nicolás Gallagher MD URINE ORDERABLES Performing Organization Address City/State/[place] [address] documented in this encounter Visit Diagnoses Diagnosis Essential hypertension Unspecified essential hypertension documented in this encounter Care Teams Quality Assurance Representative Relationship Specialty Start Date End Date Uyen Gerard MD PCP - General 07/01/13 [address] [place] [address] documented as of this encounter
--- OUTSIDE RECORDS SUMMARY | 2022-03-17 16:40 | XMS_ITS | Encounter Summary ---
:1935 Author Organization [facility] [place] [address] Care Team Providers Name Role Phone Michael Perez MD Primary Care Provider Encounter Details Date Type Department Care Team Description 04/25/2011 Office Visit CAT Scan at [facility] er [address] [place] [address] Social History Tobacco Use Types Packs/Day Years Used Date Never Assessed Sex Assigned at Date Recorded Female 03/31/2021 2:10 PM EDT documented as of this encounter Plan of Treatment Not on filedocumented as of this encounter Procedures Procedure Name Priority Date/Time Associated Diagnosis Comme nts CT CHEST, ABDOMEN, Routine 04/25/2011 10:58 AM Re sults for this PELVIS WO CONTRAST EDT procedure are in the results section. documented in this encounter Results CT CHEST, ABDOMEN, PELVIS WO CONTRAST (04/25/2011 10:58 AM EDT) Anatomical Region Laterality Modality Computed Tomography Specimen (Source) Anatomical Collection Method Collection Time Re ceived Time Location / / Volume Laterality 04/25/2011 10:58 AM EDT Impressions 04/25/2011 4:29 PM EDT IMPRESSION: Chronic interstitial/coarse reticular ch anges in both lungs as described, similar in distribution except for a new confluent nodular pleural abnormality present with dimensions as described abo ve. ??No other changes are apparent. ABDOMEN AND PELVIS CT Axial multidetector helical images were obtained from the level of the hemidiaphragms to the symphysis followin g oral contrast material. ??No intravenous contrast material was utiliz ed at the request of Dr. Sorenson. The liver and biliary ducts are unremark able. ??There are multiple calcified gallstones present within the gallbladde r. ??There has been a prior right nephrectomy performed. ??The left kidney and visualized bowel are normal. ??There are multiple small calcified uterine fib roids present, similar to the prior study. ??No other abnormalities are seen . ??The bony skeleton is normal. IMPRESSION: 1. ??Postoperative changes status post l eft nephrectomy without change. 2. ??Cholelithiasis. 3. ??Uterine fibroids. 4. ??Otherwise negative abdominal CT sca n. 5. ??Otherwise negative pelvic CT scan. Bismark Marx M.D./[id number] Doc #:[id number] D: ??04/25/2011 T: ??04/25/2011 3:09 PM Narrative 04/25/2011 4:29 PM EDT REASON FOR EXAM: ??staging for renal can cer UNENHANCED CHEST CT SCAN Clinical Information: ??Followup of milton l cancer. Axial multidetector helical images were obtained from the level of the thoracic inlet to the hemidiaphragms without cont rast material and compared to the prior studies of 04/09/09 and 03/20/10. There is evidence of coarse reticular ch garry in the right middle lobe, laterally in the right lower lobe, and i n the axillary segment of the right upper lobe which appears similar to the prior studies given differences in technique. ??No suspicious, new parenchy mal nodules are present. ??There is a more confluent nodular area present melanie g the pleural surface of the right middle lobe which measures approximately 17 mm in maximal diameter. ??No other definite pulmonary abnormalities are pre sent. ??The lack of contrast material limits evaluation of the mediastinum, bu t no definite mediastinal or hilar adenopathy is present and the bony thora x appears intact. ??No other abnormalities are apparent. 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 Procedure Note Bismark Marx MD - 04/25/2011Forma tting of this note might be different from the original. REASON FOR EXAM: staging for renal cance r UNENHANCED CHEST CT SCAN Clinical Information: Followup of renal cancer. Axial multidetector helical images were obtained from the level of the thoracic inlet to the hemidiaphragms without cont rast material and compared to the prior studies of 04/09/09 and 03/20/10. There is evidence of coarse reticular ch garry in the right middle lobe, laterally in the right lower lobe, and i n the axillary segment of the right upper lobe which appears similar to the prior studies given differences in technique. No suspicious, new parenchyma l nodules are present. There is a more confluent nodular area present melanie g the pleural surface of the right middle lobe which measures approximately 17 mm in maximal diameter. No other definite pulmonary abnormalities are pre sent. The lack of contrast material limits evaluation of the mediastinum, bu t no definite mediastinal or hilar adenopathy is present and the bony thora x appears intact. No other abnormalities are apparent. Scoliotic cu rvature of the thoracolumbar spine is again noted. IMPRESSION IMPRESSION: Chronic interstitial/coarse reticular ch anges in both lungs as described, similar in distribution except for a new confluent nodular pleural abnormality present with dimensions as described abo ve. No other changes are apparent. ABDOMEN AND PELVIS CT Axial multidetector helical images were obtained from the level of the hemidiaphragms to the symphysis followin g oral contrast material. No intravenous contrast material was utiliz ed at the request of Dr. Sorenson. The liver and biliary ducts are unremark able. There are multiple calcified gallstones present within the gallbladde r. There has been a prior right nephrectomy performed. The left kidney a nd visualized bowel are normal. There are multiple small calcified uterine fib roids present, similar to the prior study. No other abnormalities are seen. The bony skeleton is normal. IMPRESSION: 1. Postoperative changes status post lef t nephrectomy without change. 2. Cholelithiasis. 3. Uterine fibroids. 4. Otherwise negative abdominal CT scan. 5. Otherwise negative pelvic CT scan. Bismark Marx M.D./[id number] Doc #:[id number] Mirta Sorenson MD IMG CT ORDERABLES documented in this encounter Visit Diagnoses Not on filedocumented in this encounter Care Teams Piecer Relationship Specialty Start Date End Date Michael Perez MD PCP - General 8/18/11 7/4/13 documented as of this encounter
--- OUTSIDE RECORDS SUMMARY | 2022-03-17 16:40 | XMS_ITS | Encounter Summary ---
:1935 Author Organization [facility] [place] [address] Care Team Providers Name Role Phone Uyen Gerard MD Primary Care Provider Encounter Details Date Type Department Care Team Description 07/01/2013 Laboratory Appointment Laboratory [facility] [address] [place] [address] 100 [facility] Mirta Sorenson MD [address] [place] [address] [place] [address] Social History Tobacco Use Types Packs/Day Years [...] Priority Date/Time Associated Comments Diagnosis DIFFERENTIAL, Routine 07/01/2013 9:27 AM Results for this AUTOMATED EDT procedure are i n the results section. CBC (WITH DIFF) Routine 07/01/2013 9:27 AM Result s for this EDT procedure are i n the results section. COMPREHENSIVE Routine 07/01/2013 9:27 AM Results for this METABOLIC PANEL EDT procedure ar e in (NON-FASTING) the results section. documented in this encounter Results Differential, Automated (07/01/2013 9:27 AM EDT) P athologist Signature Neutrophils % 68.0 34.0 - CERNER 71.0 % MILLENNIUM Neutr Abs (ANC) 5.45 1.50 - CERNER 6.30 MILLENNIUM x10(3)/mcL Lymphocytes % 20.0 19.0 - CERNER 53.0 % MILLENNIUM Lymphocytes Abs 1.6 1.0 - 3.6 CERNER x10(3)/mcL MILLENNIUM Monocytes % 10.1 4.0 - 13.0 CERNER % MILLENNIUM Monocyte Abs 0.8 0.2 - 1.0 CERNER x10(3)/mcL MILLENNIUM Eosinophils % 1.2 0.0 - 7.0 CERNER % MILLENNIUM Eosinophils Abs 0.1 0.0 - 0.5 CERNER x10(3)/mcL MILLENNIUM Basophils % 0.5 0.0 - 2.0 CERNER % MILLENNIUM Basophils Abs 0.0 0.0 - 0.2 CERNER x10(3)/mcL MILLENNIUM Immature Gran % 0.20 0.00 - CERNER 0.66 % MILLENNIUM Comment: Immature granulocytes(IG's)percentage an d absolute count will include metamyelocytes, myelocytes, and promyelo cytes. Blood smears from CBCs yielding IG's will be scanned manually for concor dance. If this scan disagrees with the automated IG or if promyelocytes are not ed, a manual differential will be performed. Miriam Gran Abs 0.02 0.00 - 0.05 x10(3)/mcL CER NER MILLENNIUM Specimen Anatomical Collection Method Collection Time Receive d Time (Source) Location / / Volume Laterality Blood specimen 07/01/2013 9:27 AM 013 2:13 (specimen) EDT PM EDT Dr Mark CAMARA HEMATOLOGY ORDERABLES Performing Organization Address City/State/[place] [address] CERNER MILLENNIUM (ABNORMAL) Comprehensive metabolic panel (non-fasting) (07/01/2013 9:27 AM EDT) P athologist Signature Glucose Lvl 90 60 - 199 CERNER mg/dL MILLENNIUM Comment: Diabetes: >=200 mg/dL plus symp toms BUN 19 (H) 8 - 18 mg/dL CERNER MILLENNIUM Creatinine 1.07 0.70 - 1.20 mg/dL CERNER MILL ENNIUM Comment: Please note that the pediatric reference intervals supplied above were not validated at [facility]. Results from pediatri c patients should be interpreted in conjunction to the patient's age, height and muscle mass. Sodium 134 (L) 135 - 145 mmol/L CERNER EDGAR NIUM Potassium 4.0 3.5 - 5.0 mmol/L CERNER EDGAR NIUM Comment: Please note: ??Patients with WBC >100,00 0 may have falsely elevated Potassium levels. ??For accurate Potassium quantif ication in these patients send serum separator tube (gold top) for subsequent determinations. ??Contact the Clinical Chemistry Laboratory if there are any qu estions. Chloride 97 (L) 98 - 107 mmol/L CERNER MILLENN IUM CO2 29 22 - 31 mmol/L CERNER MILLENNI UM Anion Gap 8 5 - 15 mmol/L CERNER MILLENNIU M Calcium 9.2 8.5 - 10.5 mg/dL CERNER EDGAR NIUM Total Protein 7.4 6.4 - 8.3 gm/dL CERNER MIL LENNIUM Albumin 3.9 3.2 - 5.2 gm/dL CERNER MILLENN IUM AST 29 0 - 30 unit/L CERNER MILLENNIU M ALT 22 0 - 30 unit/L CERNER MILLENNIU M Alk Phos 65 40 - 104 unit/L CERNER MILLENN IUM Total Bilirubin 0.4 0.2 - 1.3 mg/dL CERNER M ILLENNIUM Bili, Direct 0.1 0.0 - 0.3 mg/dL CERNER MILL ENNIUM Estimated GFR 50 (L) >=60 CERNER MILLENNIU [...] Location / / Volume Laterality Blood specimen 07/01/2013 9:27 AM 013 1:58 (specimen) EDT PM EDT Resulting Agency Comment Spec In Lab Dr Mark CAMARA CHEMISTRY ORDERABLES Performing Organization Address City/[facility]/[place]IP [place] [address] CERNER MILLENNIUM CBC (with Diff) (07/01/2013 9:27 AM EDT) P athologist Signature WBC 8.0 4.0 - 10.0 CERNER x10(3)/mcL MILLENNIUM RBC 4.70 3.93 - 5.22 CERNER x10(6)/mcL MILLENNIUM Hemoglobin 13.9 11.2 - 15.7 CERNER gm/dL MILLENNIUM Hematocrit 42.3 34.0 - 45.0 CERNER % MILLENNIUM MCV 90.0 79.0 - 94.0 CERNER fL MILLENNIUM MCH 29.6 26.6 - 32.2 CERNER pg MILLENNIUM MCHC 32.9 32.0 - 36.5 CERNER gm/dL MILLENNIUM Platelets 234 145 - 370 CERNER x10(3)/mcL MILLENNIUM RDWSD 43.8 35.0 - 46.0 CERNER fL MILLENNIUM RDWCV 13.3 10.9 - 14.4 CERNER % MILLENNIUM MPV 10.6 9.0 - 12.0 CERNER fL MILLENNIUM Specimen Anatomical Collection Method Collection Time Receive d Time (Source) Location / / Volume Laterality Blood specimen 07/01/2013 9:27 AM 013 2:13 (specimen) EDT PM EDT Resulting Agency Comment Spec In Lab Dr Mark CAMARA HEMATOLOGY ORDERABLES Performing Organization Address City/[facility]/[place] [address] CERNER MILLENNIUM documented in this encounter Visit Diagnoses Not on filedocumented in this encounter Care Teams Surveillance Agent Relationship Specialty Start Date End Date Uyen Gerard MD PCP - General 07/01/13 [address] [place] [address] documented as of this encounter
--- OUTSIDE RECORDS SUMMARY | 2022-03-17 16:40 | XMS_ITS | Encounter Summary ---
:1935 Author Organization [facility] [place] [address] Care Team Providers Name Role Phone Uyen Gerard MD Primary Care Provider Encounter Details Date Type Department Care Team Description 05/29/2015 Hospital Encounter Laboratory Jannie Oviedo CKD (chronic kidney [facility] MD Pohng disease), [place] [address] NEPHROLOGY [phone] [place], [place] [address] Social History Tobacco Use Types Packs/Day Years Used Date Never Smoker Smokeless Tobacco: Never Used Alcohol Use Standard Drinks/Week Comments Yes 7 (1 standard drink = 0.6 oz pure alcoho l) Sex Assigned at Date Recorded Female 03/31/2021 2:10 PM EDT documented as of this encounter Medications at Time of Discharge Medication Sig Dispensed Refills Start Date End Date amLODIPine (NORVASC) 5 mg Take 5 mg by mouth 0 Tablet daily. losartan (COZAAR) 50 mg Take 100 mg by 0 Tablet mouth nightly. Calcium 500 mg Tab Take 1 tablet by 0 mouth 2 times daily. atorvastatin (LIPITOR) 10 Take 10 mg by mouth 0 mg tablet daily. cholecalciferol, Vitamin Take 1,000 Units by 0 D3, 25 mcg (1,000 unit) mouth daily. Capsule SUMAtriptan (Imitrex) 25 Take 50 mg by mouth 0 mg Tablet as needed. DOCUSATE SODIUM (COLACE 0 01/02/2009 ORAL) albuterol (PROVENTIL Inhale 2 puffs into 0 02/24/2019 HFA;VENTOLIN HFA) 90 the lungs every 4 mcg/actuation inhaler hours as needed. Use with spacer tiotropium (SPIRIVA) 18 Inhale 1 capsule 90 capsule 3 201102/24/2019 mcg inhalation into the lungs capsuleIndications: daily. Medication refill Cod Liver Oil Cap 0 01/02/2009 021 documented as of this encounter Plan of Treatment Not on filedocumented as of this encounter Procedures Procedure Name Priority Date/Time Associated Diagnosis Comme nts PTH Routine 05/29/2015 2:12 PM CKD (chronic kidney Re sults for this EDT disease), stage III procedur e are in the results section . documented in this encounter Results PTH (05/29/2015 2:12 PM EDT) athologist Signature PTH 31 15 - 65 CERNER pg/mL MILLENNIUM Specimen Anatomical Collection Method Collection Time Receive d Time (Source) Location / / Volume Laterality Blood specimen 05/29/2015 2:12 PM 015 2:26 (specimen) EDT PM EDT Resulting Agency Comment Spec In Lab Jannie Oviedo MD CHEMISTRY ORDERABLES Performing Organization Address City/State/ZIP Code Phon e Number [place] [phone] [facility] documented in this encounter Visit Diagnoses Diagnosis CKD (chronic kidney disease), stage III Chronic kidney disease, Stage III (moder ate) documented in this encounter Care Teams Scooter Mechanic Relationship Specialty Start Date End Date Uyen Gerard MD PCP - General 07/01/13 [address] [place] [address] documented as of this encounter
--- OUTSIDE RECORDS SUMMARY | 2022-03-17 16:40 | XMS_ITS | Encounter Summary ---
:1935 [place] [address] Care Team Providers Name Role Phone Uyen Gerard MD Primary Care Provider Encounter Details Date Type Department Care Team Description 03/17/2019 Laboratory Appointment Lab [address] [place] [address] Social History Tobacco Use Types Packs/Day Years [...] Associated Diagnosis Comme nts BASIC METABOLIC Routine 03/17/2019 12:47 Essential Results for this PANEL (NON-FASTING) PM EDT hypertension procedur e are in the results section. documented in this encounter Results (ABNORMAL) Basic Metabolic Panel (non-fasting) (03/17/2019 12:47 PM EDT) P athologist Signature Glucose Lvl 79 65 - 199 [facility] mg/dL [facility] Comment: Diabetes: >=200 mg/dL plus symp toms BUN 21 (H) 8 - 18 mg/dL [facility] Creatinine 1.01 0.70 - 1.20 mg/dL [facility] Sodium 136 135 - 145 mmol/L [facility] Potassium 4.4 3.5 - 5.0 mmol/L [facility] Comment: Please note: ??Patients with WBC >100,00 0 may have falsely elevated Potassium levels. ??For accurate Potassium quantif ication in these patients send serum separator tube (gold top) for subsequent determinations. ??Contact the Clinical Chemistry Laboratory if there are any qu estions. Chloride 99 98 - 107 mmol/L [facility] CO2 29 22 - 31 mmol/L [facility] Anion Gap 8 5 - 15 mmol/L [facility] Calcium 9.2 8.5 - 10.5 mg/dL [facility] Estimated GFR 52 (L) >=60 mL/min/1.73 m?? [facility] Comment: The eGFR was calculated using the CKD-EP I equation. As with all creatinine based estimates of kidney function, eGFR values calculated with the CKD-EPI equation are not accurate in patients wi th acute kidney failure, extremes of body mass or the acutely ill. [email or web address]/[facility] STIGLERnkf eGFR 60 >=60 mL/min/1.73 m?? [facility] Comment: The eGFR was calculated using the CKD-EP I equation. As with all creatinine based estimates of kidney function, eGFR values calculated with the CKD-EPI equation are not accurate in patients wi th acute kidney failure, extremes of body mass or the acutely ill. [email or web address]/[facility] STIGLERnkf Specimen Anatomical Collection Method Collection Time Receive d Time (Source) Location / / Volume Laterality Blood specimen 03/17/2019 12:47 9 (specimen) PM EDT 12:52 PM EDT Resulting Agency Comment Spec In Lab Nicolás Gallagher MD CHEMISTRY ORDERABLES Performing Organization Address City/State/ZIP [place] [address] documented in this encounter Visit Diagnoses Diagnosis Essential hypertension Unspecified essential hypertension documented in this encounter Care Teams Boatbuilder Apprentice Wood Relationship Specialty Start Date End Date Uyen Gerard MD PCP - General 07/01/13 [address] [place] [address] documented as of this encounter
--- OUTSIDE RECORDS SUMMARY | 2022-03-17 16:40 | XMS_ITS | Encounter Summary ---
:1935 Author Organization [facility] [place] [address] Care Team Providers Name Role Phone Michael Perez MD Primary Care Provider Encounter Details Date Type Department Care Team Description 06/02/2011 Abstract Pulmonology at [facility] Ming Andrea [facility] [address] [place] [phone] [place] [address] [place], [place] [address] ( rk) Social History Tobacco Use Types Packs/Day Years Used Date Never Assessed Sex Assigned at Date Recorded Female 03/31/2021 2:10 PM EDT documented as of this encounter Plan of Treatment Not on filedocumented as of this encounter Visit Diagnoses Not on filedocumented in this encounter Care Teams Box Toe Stitcher Relationship Specialty Start Date End Date Michael Perez MD PCP - General 04/24/11 03/10/13 documented as of this encounter
--- OUTSIDE RECORDS SUMMARY | 2022-03-17 16:40 | XMS_ITS | Encounter Summary ---
:1935 Author Organization [facility] [place] [address] Care Team Providers Name Role Phone Uyen Gerard MD Primary Care Provider Reason for Visit Reason Comments Medication Refill Encounter Details Date Type Department Care Team Description 02/06/2020 Refill Nephrology Hypertension Nicolás Gallagher, Essential hypertension at [facility] [place] [address] NEPHROLOGY DEPT. [place], [place] [address] (Wo rk) Social History Tobacco [...] hypertension documented in this encounter Care Teams House Wirer Helper Relationship Specialty Start Date End Date Uyen Gerard MD PCP - General 07/01/13 [address] [place] [address] documented as of this encounter
--- OUTSIDE RECORDS SUMMARY | 2022-03-17 16:40 | XMS_ITS | Encounter Summary ---
:1935 Author Organization [facility] [place] [address] Care Team Providers Name Role Phone Michael Perez MD Primary Care Provider Reason for Visit Reason Comments COPD Follow-up Encounter Details Date Type Department Care Team Description 09/15/2011 Office Visit Pulmonology at [facility] chest CT (Primary Dx); Dame Soledad Mugnuia MD COPD (chronic obstructive pulmonary dise ase) [address] [place], [place] [facility] [place] [id number] [address] [facility] [phone] [place] [id number] Social History Tobacco Use Types Packs/Day Years Used Date Never Smoker Alcohol Use Standard Drinks/Week Comments Yes 7 (1 standard drink = 0.6 oz pure alcoho l) Sex Assigned at Date Recorded Female 03/31/2021 2:10 PM EDT documented as of this encounter Last Filed Vital Signs Vital Sign Reading Time Taken Comments Blood Pressure 126/80 09/15/2011 10:39 AM EST Pulse 68 09/15/2011 10:39 AM EST Temperature - - Respiratory Rate - - Oxygen Saturation 98% 09/15/2011 10:39 AM EST Inhaled Oxygen Concentration - - Weight 63.5 kg (140 lb) 09/15/2011 10:39 AM EST Height 160 cm (5' 3) 09/15/2011 10:39 AM EST Body Mass Index 24.8 09/15/2011 10:39 AM EST documented in this encounter Patient Instructions Patient InstructionsGoMing delgadillo MD - 09/15/2011 11:39 AM EST No need to change your therapy at this time. documented in this encounter Progress Notes Ming Carter MD - 09/15/2011 11:34 AM EST Follow-up Office Visit Established Patent Jerri Velasco is a 76 y.o. female returns for follow-up of COPD and abnormal chest ct. She is accompanied by her . The patient tells me that overall symptoms have been fine since last visit. Spiriva is helpful, she believes, and she has less sob and less huffing puffing. No glaucoma. Routine activity tolerance has been fine. Breathing problems do not usually interfere with activities or selection of activities. Exercise is not routinely performed. Carrying buckets on ahill, this made her sob, after the third pass on the hill. No recent wheeze. Sleep has not been interrupted by respiratory symptoms. GERD symptoms are absent. PNDS has not been a bother. Triggers to symptoms typically include: No particular trigger. Recent changes in living and / or working environment include: none. Allergies as of 09/15/2011 - Review Complete 09/15/2011 Allergen Reaction Noted ??? Codeine phos Current Medications include: Current outpatient prescriptions Medication Sig Dispense Refill ??? tiotropium (SPIRIVA) 18 mcg inhalation capsule Inhale 18 mcg into the lungs daily. ??? atorvastatin (LIPITOR) 20 mg tablet Take 20 mg by mouth daily. ??? Cholecalciferol, Vitamin D3, (VITAMIN D) 5,000 unit Tab Take by mouth. ??? SUMAtriptan (IMITREX) 25 mg tablet Take 50 mg by mouth as needed. ??? metoprolol (LOPRESSOR) 100 mg tablet Take 50 mg by mouth 2 times daily. ??? meclizine (ANTIVERT) 25 mg tablet Take 25 mg by mouth 3 times daily as needed. ??? ndxaxbmfcx-kvistnc-jqkvttbo (FIORINAL) 50-325-40 mg per tablet Take 1 tablet by mouth every 4 hours as needed. ??? Calcium 500 mg Tab ??? DOCUSATE [...] Smoking status: Never Smoker ??? Smokeless tobacco: None ??? Alcohol Use: 4.2 oz/week 7 Glasses of wine per week ??? Drug Use: No ??? Sexually Active: None Other Topics Concern ??? 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 Physical Exam: Blood pressure 126/80, pulse 68, height 160 cm (5' 3), weight 63.504 kg (140 lb), SpO2 98.00%, peakflow 275 L/min. General appearance: comfortable Good eye contact, cooperation and recall. Eyes: FROM, anicteric. Ears: clear Nose: pink, normal Oral cavity: Dentition: no lesions Crowding of post pharynx: no sig crowding Thrush: absent. Neck: No stridor, no bruit; no submandibular; anterior cervical or supraclav adenopathy Cor: RRR Chest: No obvious use of accessory muscles of respiration. Hyperinflation is mild evident. Bilateral breath sounds are present and symmetric. Significant crackles are not appreciated. A prolonged expiratory phase is not present. Wheezes are absent. Abdomen: Soft and non-tender. No HSM appreciated not obese Extremities: Warm, well perfused No [...] 04/24/2011 HCT 42.5 04/24/2011 MCV 86.4 04/24/2011 IMPRESSION: 1. Abnormal chest CAT scan. Chest CAT scan, August 26, 2011, was without significant change from April 2009. In addition, while the patient was in the office today, I reviewed her [facility] CD from 2004. This also showed a small, 3-mm nodule in the left lower lobe. Overall, the findings are stable without significant change. No sign of active disease, inflammation, infection, or malignancy. This is reassuring. There is no need for routine serial CAT scans or chest x-rays unless, of course, there is a change in her clinical status. 2. FEV-1 50% of predicted, approximately 1 L with evidence of obstruction. Her COPD is moderate-severe and well-compensated on Spiriva. Her exercise capacity is good. Of note is her ability to carry buckets of apples up a hill multiple times in order to feed her deer. Her activity tolerance is fine. We discussed the possibility of her going to [facility], which [place]. Her oxygen saturation today is fine in the high 90s. I think that overall if she is in good condition as she is today, she should be able to tolerate ambulating slowly at that elevation after arriving by train. Although, should she have an infectious decompensation or other temporary problems, she should not go to elevation at that time. Overall, she is doing well and I am reassured over the current status. Follow up in about 9 months or sooner as needed. PLAN: 1- Patient was instructed to call this office at anytime should they experience any new respiratory symptoms (examples were discussed) or if they have any new questions or concerns. No need to change your therapy at this time. CC: MD Dr Delta [place] documented in this encounter Plan of Treatment Not on filedocumented as of this encounter Visit Diagnoses Diagnosis Abnormal chest CT - Primary Nonspecific (abnormal) findings on radio logical and other examination of other intrathoracic organs COPD (chronic obstructive pulmonary dise ase) Chronic airway obstruction, not elsewher e classified documented in this encounter Care Teams Quality Control Manager Relationship Specialty Start Date End Date Michael Perez MD PCP - General 04/24/11 03/10/13 documented as of this encounter
--- OUTSIDE RECORDS SUMMARY | 2022-03-17 16:40 | XMS_ITS | Encounter Summary ---
:1935 Author Organization [facility] [place] [address] Care Team Providers Name Role Phone Michael Perez MD Primary Care Provider Reason for Visit Reason Onset Date Comments Medication Refill 04/05/2012 Encounter Details Date Type Department Care Team Description 04/05/2012 Refill Pulmonology at [facility] Ming Andrea MD Medication refill [facility] [address] [place] [phone] 87 [facility] [address] [place], [place] [address] (Wo rk) Social History Tobacco Use Types Packs/Day Years Used Date Never Smoker Alcohol Use Standard Drinks/Week Comments Yes 7 (1 standard drink = 0.6 oz pure alcoho l) Sex Assigned at Date Recorded Female 03/31/2021 2:10 PM EDT documented as of this encounter Miscellaneous Notes Telephone Encounter - Duncan Felix LPN - 04/05/2012 10:36 AM EDT AMINATA 09/25/[address] Carter Telephone Encounter - Leanna Pedraza - 04/05/2012 10:20 AM EDT NAME OF MEDICATION AND DOSE: Spiriva - dose and frequency as stated in medication list. *Please mail script to home address. [address] [facility] [address] documented in this encounter Plan of Treatment Not on filedocumented as of this encounter Visit Diagnoses Diagnosis Medication refill Issue of repeat prescriptions documented in this encounter Care Teams Pipe Installer Relationship Specialty Start Date End Date Michael Perez MD PCP - General 04/24/11 03/10/13 documented as of this encounter
--- OUTSIDE RECORDS SUMMARY | 2022-03-17 16:40 | XMS_ITS | Encounter Summary ---
:1935 Author Organization [facility] [place] [place] [address] Care Team Providers Name Role Phone Michael Murdock MD Primary Care Provider Reason for Visit Reason Comments Follow-up Encounter Details Date Type Department Care Team Description 06/17/2012 [facility] Dame Soledad Munguia MD Flu vaccine need; [address] [facility] Need for vaccination [place], [place] [facility] [place] [phone] [place] [address] [place] [phone] Social History Tobacco Use Types Packs/Day Years Used Date Never Smoker Alcohol Use Standard Drinks/Week Comments Yes 7 (1 standard drink = 0.6 oz pure alcoho l) Sex Assigned at Date Recorded Female 03/31/2021 2:10 PM EDT documented as of this encounter Last Filed Vital Signs Vital Sign Reading Time Taken Comments Blood Pressure 140/84 06/17/2012 11:19 AM EDT Pulse 78 06/17/2012 11:19 AM EDT Temperature - - Respiratory Rate - - Oxygen Saturation 98% 06/17/2012 11:19 AM EDT Inhaled Oxygen Concentration - - Weight 61.2 kg (135 lb) 06/17/2012 11:19 AM EDT Height 165.1 cm (5' 5) 06/17/2012 11:19 AM EDT Body Mass Index 22.47 06/17/2012 11:19 AM EDT documented in this encounter Patient Instructions Patient InstructionsMing Carter MD - 06/17/2012 11:47 AM EDT I am happy you are doing well today. Please do not make any change in your therapy. Flu vaccine today. Call with any new concerns. documented in this encounter Progress Notes Olena Bueno CMA - 06/17/2012 12:00 PM EDT Addended by: OLENA BUENO on: 06/17/2012 Modules accepted: Orders Ming Carter MD - 06/17/2012 11:42 AM EDT Follow-up Office Visit Established Patent Jerri Velasco is a 77 y.o. female returns for follow-up of Severe COPD. She tells me she is doing well. Lots work around the house. Tired with heavy exertion. Stairs do lead to fatigue. Resting a fewminutes lead to recovery. Dry cough, no phlegm. No flu shot yet. The patient tells me that overall symptoms have been stable since last visit. Routine activity tolerance has been fine. Breathing problems do not usually interfere with activities or selection of activities. Exercise is routinely performed, enjoys going for a walk. Sleep has not been interrupted by respiratory symptoms. GERD symptoms are absent PNDS has not been a bother. Triggers to symptoms typically include: heavy exertion, dust causes rhinorrhea. Recent changes in living and / or working environment include: none. Allergies as of 06/17/2012 - Review Complete 06/17/2012 Allergen Reaction Noted ??? Codeine phos never used ALbuterol Spiriva, no side effects. Current Medications include: Current outpatient prescriptions Medication Sig Dispense Refill ??? atorvastatin (LIPITOR) 20 mg tablet Take 10 mg by mouth daily. ??? tiotropium (SPIRIVA) 18 mcg inhalation capsule Inhale 1 capsule into the lungs daily. 90 capsule3 ??? Cholecalciferol, Vitamin D3, (VITAMIN D) 5,000 unit Tab Take by mouth. ??? SUMAtriptan (IMITREX) 25 mg tablet Take 50 mg by mouth as needed. ??? metoprolol (LOPRESSOR) 100 mg tablet Take 50 mg by mouth 2 times daily. ??? meclizine (ANTIVERT) 25 mg tablet Take 25 mg by mouth 3 times daily as needed. ??? wyfthjetcc-zpiruae-miybwtad (FIORINAL) 50-325-40 mg per tablet Take 1 [...] file Social History Narrative Grew up in [place] after world war 2, left in 1959First worked in [employer] until 1999Had asbestos on pipes in the office in which she worked.Pt lives with her in a home. 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 Physical Exam: Blood pressure 140/84, pulse 78, height 165.1 cm (5' 5), weight 61.236 kg (135 lb), SpO2 98.00%, peak flow 290 L/min. General appearance: confortable Good eye contact, cooperation and recall. Eyes: FROM, anicteric. Ears: clear Nose: pink, no exudate Oral cavity: Dentition: no lesions Crowding of post pharynx: normal Thrush: absent. Neck: No stridor, no bruit; no submandibular; anterior cervical or supraclav adenopathy Cor: RRR, no g, m, r appreciated Chest: No obvious use of accessory muscles of respiration. Hyperinflation is not evident. Bilateral breath sounds are present and symmetric. Significant crackles are not appreciated. A prolonged expiratory phase is mild present. Wheezes are absent. Abdomen: Soft and [...] MCV 86.4 04/24/2011 Pulmonary Functions Testing Results: FEV-1 50% of predicted, approximately 1 L with evidence of obstruction IMPRESSION: Severe COPD Jerri Velasco is a 77-year-old, female who returns for followup. She is doing well at this time, and leads a very active lifestyle despite her FEV1 of 1.0. She is tolerating her Spiriva well without any side effects. She does not need albuterol. Her past CAT scan revealed a small, stable abnormality which we will no longer be following unless there is a clinical change. Although her FEV1 is just 50% of predicted, she is performing at a level that I feel is greater than expected for that level of function. I reviewed her program, and need for her to contact me should she have an increase in respiratory symptoms, questions or concerns. She just received a refill of her Spiriva, and she is a good candidate for flu vaccine today. Flu vaccine needed, and she agrees to accept it today. 15 minutes of this 25 outpatient visit was spent discussing my concerns, impression and treatment plans. Questions were asked by the patient and these were answered. PLAN/Patient instructions: 1- Patient was instructed to call this office at anytime if new respiratory symptoms (examples were discussed) or if new questions or concerns develop. I am happy you are doing well today. Please do not make any change in your therapy. Flu vaccine today. Call with any new concerns. CC: MICHAEL MURDOCK MD documented in this encounter Plan of Treatment Not on filedocumented as of this encounter Visit Diagnoses Diagnosis COPD (chronic obstructive pulmonary dise ase) - Primary Chronic airway obstruction, not elsewher e classified Flu vaccine need Need for prophylactic vaccination and in oculation against influenza Need for vaccination Need for prophylactic vaccination and in oculation against unspecified single disease documented in this encounter Care Teams Checkout Operator Relationship Specialty Start Date End Date Michael Murdock MD PCP - General 04/24/11 03/10/13 documented as of this encounter
--- OUTSIDE RECORDS SUMMARY | 2022-03-17 16:40 | XMS_ITS | Encounter Summary ---
:1935 Author Organization [facility] [place] [address] Care Team Providers Name Role Phone Uyen Gerard MD Primary Care Provider Encounter Details Date Type Department Care Team Description 01/15/2021 Telephone Pulmonology [place] [facility] [place] [address] Social History Tobacco Use Types Packs/Day [...] on filedocumented in this encounter Care Teams Port Engineer Relationship Specialty Start Date End Date Uyen Gerard MD PCP - General 07/01/13 [address]ina [address] [place] [address] documented as of this encounter
--- OUTSIDE RECORDS SUMMARY | 2022-03-17 16:40 | XMS_ITS | Encounter Summary ---
:1935 Author Organization [facility] [place] [address] Care Team Providers Name Role Phone Michael Perez MD Primary Care Provider Encounter Details Date Type Department Care Team Description 06/18/2012 Office Visit Ultrasound at [address] [phone] Social History Tobacco Use Types Packs/Day Years Used Date Never Smoker Alcohol Use Standard Drinks/Week Comments Yes 7 (1 standard drink = 0.6 oz pure alcoho l) Sex Assigned at Date Recorded Female 03/31/2021 2:10 PM EDT documented as of this encounter Plan of Treatment Not on filedocumented as of this encounter Procedures Procedure Name Priority Date/Time Associated Comments Diagnosis US RETROPERITONEAL Routine 06/18/2012 11:24 Resul ts for this COMPLETE AM EDT procedure are i n the results section. documented in this encounter Results US RETROPERITONEAL COMPLETE (06/18/2012 11:24 AM EDT) Anatomical Region Laterality Modality Abdomen Ultrasound Specimen (Source) Anatomical Collection Method Collection Time Re ceived Time Location / / Volume Laterality 06/18/2012 11:24 AM EDT Narrative 06/18/2012 11:27 AM EDT Examination US Retroperitoneal Complete Clinical History RENAL CELL CANCER Comparison None. Findings The urinary bladder is unremarkable, no diverticulum or wall thickening. ??The right kidney has been surgically removed . ??The left kidney appears slightly hypertrophied, 12.2 cm without stones or hydronephrosis or mass. Impression Normal left kidney and bladder. ??Status post right nephrectomy. Procedure Note Panda Orellana MD - 06/18/2012Formatt ing of this note might be different from the original. Examination US Retroperitoneal Complete Clinical History RENAL CELL CANCER Comparison None. Findings The urinary bladder is unremarkable, no diverticulum or wall thickening. The right kidney has been surgically removed . The left kidney appears slightly hypertrophied, 12.2 cm without stones or hydronephrosis or mass. Impression Normal left kidney and bladder. Status p ost right nephrectomy. Mirta Sorenson MD [facility] GEN ORDERABLES documented in this encounter Visit Diagnoses Not on filedocumented in this encounter Care Teams Gear Shaper Set Up Operator Relationship Specialty Start Date End Date Michael Perez MD PCP - General 04/24/11 03/10/13 documented as of this encounter
--- OUTSIDE RECORDS SUMMARY | 2022-03-17 16:40 | XMS_ITS | Encounter Summary ---
:1935 Author Organization [facility] [place] [address] Care Team Providers Name Role Phone Uyen Zamora MD Primary Care Provider Reason for Visit Reason Comments COPD Encounter Details Date Type Department Care Team Description 03/31/2014 Office Visit Pulmonology at [facility], Ming SYED D, severe (Primary Dame Soledad Munguia MD Dx) [address] [place], [place] [facility] [address] [place] [address] [place] [address] Social History Tobacco Use Types Packs/Day Years Used Date Never Smoker Smokeless Tobacco: Never Used Alcohol Use Standard Drinks/Week Comments Yes 7 (1 standard drink = 0.6 oz pure alcoho l) Sex Assigned at Date Recorded Female 03/31/2021 2:10 PM EDT documented as of this encounter Last Filed Vital Signs Vital Sign Reading Time Taken Comments Blood Pressure 140/84 03/31/2014 3:01 PM EDT Pulse 80 03/31/2014 3:01 PM EDT Temperature - - Respiratory Rate - - Oxygen Saturation 96% 03/31/2014 3:01 PM EDT RA Inhaled Oxygen Concentration - - Weight 62.1 kg (137 lb) 03/31/2014 3:01 PM EDT Height 165.1 cm (5' 5) 03/31/2014 3:01 PM EDT Body Mass Index 22.8 03/31/2014 3:01 PM EDT documented in this encounter Patient Instructions Patient InstructionsGoMing delgadillo MD - 03/31/2014 4:00 PM EDT I am happy you are doing well now. Your lungs are clear. I see no need to change your treatments now. If you develop Bronchitis while away with cough, fever and phlegm (at least two of these three) please take a Z-pack 5 day course of antibiotics. If you develop DIARRHEA please stop this antibiotic andcall my office. If you have any new concerns, questions or symptoms, please call my office [phone]. documented in this encounter Progress Notes Ming Carter MD - 03/31/2014 3:41 PM EDT Follow-up Office Visit Established Patent Chief Complaint Patient presents with ??? COPD Jerri Velasco is a 79 y.o. female returns for follow-up of well-compensated Severe COPD. (s/p Nephrectomy for Renal Cell CA) The patient tells me that overall symptoms have been stable since last visit. Routine activity tolerance has been fine. Breathing problems do not usually interfere with activities or selection of activities. Exercise is routinely performed gardening. Rakes gravel. Stamina is improved. Lungs were ok during the stress of her ankle fracture. Used spinal anesthesia instead of general anesthesia. Broke her left ankle on ice and did not go to [place]. Required a steel plate and a screw. Sleep has not been interrupted by respiratory symptoms. Last night indigestion which lead to a cough. GERD symptoms are typically present. PNDS has not been a bother- some rhinitis, but better lately. Triggers to symptoms typically include: Humidity is a bother at times. Recent changes in living and / or working environment include: none. Allergies as of 03/31/2014 - Review Complete 03/31/2014 Allergen Reaction Noted ??? Codeine phosphate spiriva albuterol does not need it although will use it before exercise. Current Medications include: Current Outpatient Prescriptions Medication [...] mouth 3 times daily as needed. ??? uwpnxndicu-mtmjudn-zkrhohwa (FIORINAL) 50-325-40 mg per tablet Take 1 tablet by mouth every 4 hours as needed. ??? DOCUSATE SODIUM (COLACE ORAL) ??? Cod Liver Oil Cap Side effects related to these medications include none. Past Surgical History Procedure Date ??? Tonsillectomy ??? Total nephrectomy [address] White, right. No chemo, No xrt. ??? Ankle surgery 2013 ice injury Past Medical History Diagnosis Date ??? 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 Physical Exam: Body mass index is 22.80 kg/(m^2). Blood pressure 140/84, pulse 80, height 165.1 cm (5' 5), weight 62.143 kg (137 lb), SpO2 96.00%, peak flow 300 L/min. _no_ oxygen therapy General appearance: comfortable Good eye contact, cooperation and recall. Eyes: FROM, anicteric. Ears: clear Nose: pink, moderate edema right Oral cavity: Dentition: no lesions Mallampati airway: 2 Thrush: absent. Neck: No [...] no significant rash Extremities: Warm, well perfused Mild 1+ left ankle edema, cords, or clubbing Neuro: Attentive, Alert [...] 07/01/2013 HCT 42.3 07/01/2013 MCV 90.0 07/01/2013 Echocardiogram [facility] 08-03-13 Normal biventricular function, normal pulmonary pressures. Aortic sclerosis but no stenosis. Pulmonary Functions Testing Results: I reviewed raw PFT data FEV-1 50% of predicted, approximately 1 L with evidence of obstruction Chest CAT scan March 2010. Coarse, reticular changes in the right middle lobe. No adenopathy. IMPRESSION: 1. Severe COPD. A 79-year-old woman without a smoking history with airway obstruction and reduced FEV1 returns for followup. She uses her Spiriva daily. She has had no exacerbations since last visit. She did not need the azithromycin antibiotic given to her at last visit. Stable woman with fixed airway obstruction. This could be chronic obstructive asthma. PLAN/Patient instructions: 1- Patient was instructed to call this office at anytime if new respiratory symptoms (examples were discussed) or if new questions or concerns develop. I am happy you are doing well now. Your lungs are clear. I see no need to change your treatments now. If you develop Bronchitis while away with cough, fever and phlegm (at least two of these three) please take a Z-pack 5 day course of antibiotics. If you develop DIARRHEA please stop this antibiotic andcall my office. If you have any new concerns, questions or symptoms, please call my office [phone]. CC: UYEN ZAMORA MD Dear Dr. Zamora, I had the pleasure of seeing Jerri Velasco and her back in the office today, March 31, 2014. She is a woman with severe obstructive lung disease, although she never smoked cigarettes. She is doing well on Spiriva. Her activity tolerance is good and she remains active. Unfortunately, she fractured her ankle recently and had surgery for this, which interfered with her trip to [place], which she was not able to enjoy. She is doing fine. I am making no changes in her management and I will see her back in nine months, or sooner as needed. Additional details are attached. Thank you for allowing me to assist in this patient's care, documented in this encounter Plan of Treatment Not on filedocumented as of this encounter Visit Diagnoses Diagnosis COPD, severe - Primary Chronic airway obstruction, not elsewher e classified documented in this encounter Care Teams Barrel Header Relationship Specialty Start Date End Date Uyen Zamora MD PCP - General 07/01/13 [address] [place] [address] documented as of this encounter
--- OUTSIDE RECORDS SUMMARY | 2022-03-17 16:40 | XMS_ITS | Encounter Summary ---
:1935 Author Organization [facility] [place] [address] Care Team Providers Name Role Phone Uyen Gerard MD Primary Care Provider Reason for Visit Reason Comments Follow-up Skin Check Consultation (Routine) - Specialty Diagnoses / Procedures Referred By Contact Refer red To Contact Dermatology Diagnoses Nonscarring hair loss, unspecified Hair loss Uyen Gerard MD Hammer, Charles J, MD Procedures Consult [address] [place], [place] DERMATOLOGY [id number] [place] [phone] Fax: Referral ID Status Reason Start Date Expiration Date Visits V isits Requested Authorized [id number] 02/07/2019 02/07/2020 1 1 Encounter Details Date Type Department Care Team Description 04/29/2019 Office Visit Dermatology at [facility], History of telogen effluvium; Jared [place] (actinic keratosis); [address] [facility] Seborrheic keratosis Rex B DERMATOLOGY [place], [place] [id number] [phone] Social History Tobacco Use Types Packs/Day Years Used Date Never Smoker Smokeless Tobacco: Never Used Alcohol Use Standard Drinks/Week Comments Yes 7 (1 standard drink = 0.6 oz pure alcoho l) Sex Assigned at Date Recorded Female 03/31/2021 2:10 PM EDT documented as of this encounter Progress Notes Daniel Gupta MD - 04/29/2019 2:15 PM EDT Problem: 1. New skin lesions of concern 2. Recent history of telogen effluvium Jerri follows up and is now 84. Her underwent aortic valve surgery and there was a lot ofstress in her family about 4 months ago and she suffered significant hair thinning. Fortunately her 's surgery went well and he is with her here today in the office, Jay. She made her appointment about 4 months ago and while waiting for today's appointment the hair shedding has ceased. She like me to check some spots on her skin however. Physical examination reveals a pleasant 84-year-old woman who has an actinic keratosis of the upper central forehead at the hairline. She has a seborrheic keratosis on her left cheek and several along the waistline on her back. She has a dark 4 x 6 mm seborrheic keratosis on her left anterior chest. Otherwise examination of the face the neck the chest the back the hands informs is benign. Assessment and plan: Benign skin examination 1. Patient reassured about benign seborrheic keratoses benign skin examination 2. No treatment necessary 3. Return to clinic here on a as needed basis for new lesions concerns Recent telogen effluvium 1. Discussed connection between significant stress and hair loss 2. Reassured her that the this type of hair loss is reversible 3. No treatment necessary Actinic keratosis right upper forehead and hairline 1. LN 2 x 2 plan to single site CC: Uyen Gerard MD documented in this encounter Plan of Treatment Not on filedocumented as of this encounter Visit Diagnoses Diagnosis History of telogen effluvium Personal history of other specified dise ases [place] (actinic keratosis) Actinic keratosis Seborrheic keratosis Other seborrheic keratosis documented in this encounter Care Teams Top Case Assembler Relationship Specialty Start Date End Date Uyen Gerard MD PCP - General 07/01/13 [address] [place] [address] documented as of this encounter
--- OUTSIDE RECORDS SUMMARY | 2022-03-17 16:40 | XMS_ITS | Encounter Summary ---
:1935 Author Organization [facility] [place] [address] Care Team Providers Name Role Phone Uyen Zamora MD Primary Care Provider Encounter Details Date Type Department Care Team Description 05/29/2015 Follow-Up Nephrology Hypertension CLINIC, DR TELLO AMES [facility] [place] [address] disease), [place] [address] Social History Tobacco Use Types Packs/Day Years Used Date Never Smoker Smokeless Tobacco: Never Used Alcohol Use Standard Drinks/Week Comments Yes 7 (1 standard drink = 0.6 oz pure alcoho l) Sex Assigned at Date Recorded Female 03/31/2021 2:10 PM EDT documented as of this encounter Last Filed Vital Signs Vital Sign Reading Time Taken Comments Blood Pressure 156/98 05/28/2015 2:35 PM EDT Pulse 78 05/28/2015 2:35 PM EDT Temperature - - Respiratory Rate - - Oxygen Saturation - - Inhaled Oxygen Concentration - - Weight 60.8 kg (134 lb) 05/28/2015 2:35 PM EDT Height 162.6 cm (5' 4) 05/28/2015 2:35 PM EDT Body Mass Index 23 05/28/2015 2:35 PM EDT documented in this encounter Progress Notes Jannie Oviedo MD - 06/01/2015 2:11 PM EDT I have seen the patient and reviewed the fellow's history, and I agree with the details as written. The assessment and plan were formulated in discussion with me, and I agree with them as documented. Tremaine Bustillos MD - 05/29/2015 1:33 PM EDT [facility] Nephrology/Hypertension Follow Up Jerri Velasco [id number] 1935 ID: [id number] y.o. female for CKD G3 and HTN PAST MEDICAL HX: Past Medical History Diagnosis Date ??? Hypertension 06/02/2011 ??? Renal cell cancer 06/02/2011 ??? COPD (chronic obstructive pulmonary disease) 06/02/2011 ??? Rash ??? 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 bp logs at home continue to be <150/90. Currently on losartan 50 mg daily and amlodipine 5 mg qhs. Pedal swelling has improved. She also had exposure to contrast in april of this year when a CTscan of the head, thorax and abdomen were done. Denies chest pains or palpitations. No hematuria or urinary symptoms.. She is having a tooth implantation done today. ROS: -no fever, chills, night sweats -no [...] ??? Codeine Phosphate PHYSICAL EXAM: Filed Vitals: 05/28/15 1435 BP: 156/98 Pulse: 78 Gen - AAO x 3 in NAD [...] Recent Results (from the past 24 hour(s)) Basic Metabolic Panel (non-fasting) Result Value Ref Range Glucose Lvl 80 65 - 199 mg/dL BUN 22 (H) 8 - 18 mg/dL Creatinine 1.04 0.70 - 1.20 mg/dL Sodium 137 135 - 145 mmol/L Potassium 4.5 3.5 - 5.0 mmol/L Chloride 95 (L) 98 - 107 mmol/L CO2 28 22 - 31 mmol/L Anion Gap 14 5 - 15 mmol/L Calcium 9.6 8.5 - 10.5 mg/dL Estimated GFR 51 (L) >=60 Hemogram Result Value Ref Range WBC 6.2 4.0 - 10.0 x10(3)/mcL RBC 4.81 3.93 - 5.22 x10(6)/mcL Hemoglobin 14.2 11.2 - 15.7 gm/dL Hematocrit 42.6 34.0 - 45.0 % MCV 88.6 79.0 - 94.0 fL MCH 29.5 26.6 - 32.2 pg MCHC 33.3 32.0 - 36.5 gm/dL Platelets 219 145 - 370 x10(3)/mcL RDWSD 42.2 35.0 - 46.0 fL RDWCV 13.1 10.9 - 14.4 % MPV 10.2 9.0 - 12.0 fL Differential, Automated Result Value Ref Range Neutrophils % 63.5 % Neutr Abs (ANC) 3.97 1.50 - 6.30 x10(3)/mcL Lymphocytes % 25.3 % Lymphocytes Abs 1.6 1.0 - 3.6 x10(3)/mcL Monocytes % 9.3 % Monocyte Abs 0.6 0.2 - 1.0 x10(3)/mcL Eosinophils % 1.3 % Eosinophils Abs 0.1 0.0 - 0.5 x10(3)/mcL Basophils % 0.6 % Basophils Abs 0.0 0.0 - 0.2 x10(3)/mcL Immature Gran % 0.00 % Miriam Gran Abs 0.00 0.00 - 0.05 x10(3)/mcL PTH Result Value Ref Range PTH 31 15 - 65 pg/mL Phosphorus Result Value Ref Range Phosphorus 3.4 2.5 - 4.5 mg/dL Impression/ Plan: CKD G3 with risk including longstanding hypertension and renal cell carcinoma s/p nephrectomy. Bloodpressure is controlled on current regimen. -continue 50 mg daily losartan and 5 mg qhs amlodipine -will get on CT scan report of abdomen to evaluate the unilateral kidney -CKD G3. Stable with baseline SCr 1.0. Urine for microalbuminuria pending Hgb at goal. No need for cortney -normal phos and pth. -avoid nephrotoxins/nsaids -follow up in 6 months. Seen and Discussed w/ Dr. Preet Bustillos MD Nephrology Fellow Pager# [phone] UYEN ZAMORA MD (General) [facility] [address] [place], [place] [id number] documented in this encounter Plan of Treatment Not on filedocumented as of this encounter Procedures Procedure Name Priority Date/Time Associated Comments Diagnosis HEMOGRAM Routine 05/29/2015 2:12 PM CKD (chronic kidney Re sults for this EDT disease), stage III procedur e are in the results section. DIFFERENTIAL, Routine 05/29/2015 2:12 PM CKD (chronic kidney R esults for this AUTOMATED EDT disease), stage III procedur e are in the results section. CBC (WITH DIFF) Routine 05/29/2015 2:12 PM CKD (chronic kidney EDT disease), stage III PHOSPHORUS Routine 05/29/2015 2:12 PM Results f or this EDT procedure are i n the results section. BASIC METABOLIC Routine 05/29/2015 2:12 PM CKD (chronic kidney Results for this PANEL (NON-FASTING) EDT disease), stage III p rocedure are in the results section. documented in this encounter Results Phosphorus (05/29/2015 2:12 PM EDT) athologist Signature Phosphorus 3.4 2.5 - 4.5 CERNER mg/dL MILLENNIUM Specimen Anatomical Collection Method Collection Time Receive d Time (Source) Location / / Volume Laterality Blood specimen Venous Draw / 05/29/2015 2:12 PM 2014 2:26 (specimen) Unknown EDT PM EDT Resulting Agency Comment Spec In Lab Jannie Oviedo MD CHEMISTRY ORDERABLES Performing Organization Address City/State/ZIP Code Phon e Number [place] [id number] CERNER MILLENNIUM Differential, Automated (05/29/2015 2:12 PM EDT) athologist Signature Neutrophils % 63.5 % CERNER MILLENNIUM Neutr Abs (ANC) 3.97 1.50 - CERNER 6.30 MILLENNIUM x10(3)/mcL Lymphocytes % 25.3 % CERNER MILLENNIUM Lymphocytes Abs 1.6 1.0 - 3.6 CERNER x10(3)/mcL MILLENNIUM Monocytes % 9.3 % CERNER MILLENNIUM Monocyte Abs 0.6 0.2 - 1.0 CERNER x10(3)/mcL MILLENNIUM Eosinophils % 1.3 % CERNER MILLENNIUM Eosinophils Abs 0.1 0.0 - 0.5 CERNER x10(3)/mcL MILLENNIUM Basophils % 0.6 % CERNER MILLENNIUM Basophils Abs 0.0 0.0 - 0.2 CERNER x10(3)/mcL MILLENNIUM Immature Gran % 0.00 % CERNER MILLENNIUM Comment: Immature granulocytes(IG's)percentage an d absolute count will include metamyelocytes, myelocytes, and promyelo cytes. Blood smears from CBCs yielding IG's will be scanned manually for concor dance. If this scan disagrees with the automated IG or if promyelocytes are not ed, a manual differential will be performed. Miriam Gran Abs 0.00 0.00 - 0.05 x10(3)/mcL CER NER MILLENNIUM Specimen Anatomical Collection Method Collection Time Receive d Time (Source) Location / / Volume Laterality Blood specimen 05/29/2015 2:12 PM 015 2:26 (specimen) EDT PM EDT Resulting Agency Comment Spec In Lab Jannie Oviedo MD HEMATOLOGY ORDERABLES Performing Organization Address City/State/[place] [address] CERNER MILLENNIUM Hemogram (05/29/2015 2:12 PM EDT) P athologist Signature WBC 6.2 4.0 - 10.0 CERNER x10(3)/mcL MILLENNIUM RBC 4.81 3.93 - 5.22 CERNER x10(6)/mcL MILLENNIUM Hemoglobin 14.2 11.2 - 15.7 CERNER gm/dL MILLENNIUM Hematocrit 42.6 34.0 - 45.0 CERNER % MILLENNIUM MCV 88.6 79.0 - 94.0 CERNER fL MILLENNIUM MCH 29.5 26.6 - 32.2 CERNER pg MILLENNIUM MCHC 33.3 32.0 - 36.5 CERNER gm/dL MILLENNIUM Platelets 219 145 - 370 CERNER x10(3)/mcL MILLENNIUM RDWSD 42.2 35.0 - 46.0 CERNER fL MILLENNIUM RDWCV 13.1 10.9 - 14.4 CERNER % MILLENNIUM MPV 10.2 9.0 - 12.0 CERNER fL MILLENNIUM Specimen Anatomical Collection Method Collection Time Receive d Time (Source) Location / / Volume Laterality Blood specimen 05/29/2015 2:12 PM 015 2:26 (specimen) EDT PM EDT Resulting Agency Comment Spec In Lab Jannie Oviedo MD HEMATOLOGY ORDERABLES Performing Organization Address City/[facility]/ZIP Code Phon e Number [address] CERNER MILLENNIUM PTH (05/29/2015 2:12 PM EDT) athologist Signature PTH 31 15 - 65 CERNER pg/mL MILLENNIUM Specimen Anatomical Collection Method Collection Time Receive d Time (Source) Location / / Volume Laterality Blood specimen 05/29/2015 2:12 PM 015 2:26 (specimen) EDT PM EDT Resulting Agency Comment Spec In Lab Jannie Oviedo MD CHEMISTRY ORDERABLES Performing Organization Address City/[facility] Phon e Number [address] CERNER MILLENNIUM (ABNORMAL) Basic Metabolic Panel (non-fasting) (05/29/2015 2:12 PM EDT) athologist Signature Glucose Lvl 80 65 - 199 CERNER mg/dL MILLENNIUM Comment: Diabetes: >=200 mg/dL plus symp toms BUN 22 (H) 8 - 18 mg/dL CERNER MILLENNIUM Creatinine 1.04 0.70 - 1.20 mg/dL CERNER MILL ENNIUM Comment: Please note that the pediatric reference intervals supplied above were not validated at [facility]. Results from pediatri c patients should be interpreted in conjunction to the patient's age, height and muscle mass. Sodium 137 135 - 145 mmol/L CERNER EDGAR NIUM Potassium 4.5 3.5 - 5.0 mmol/L CERNER EDGAR NIUM Comment: Please note: ??Patients with WBC >100,00 0 may have falsely elevated Potassium levels. ??For accurate Potassium quantif ication in these patients send serum separator tube (gold top) for subsequent determinations. ??Contact the Clinical Chemistry Laboratory if there are any qu estions. Chloride 95 (L) 98 - 107 mmol/L CERNER MILLENN IUM CO2 28 22 - 31 mmol/L CERNER MILLENNI UM Anion Gap 14 5 - 15 mmol/L LANIE CHARLESIU M Calcium 9.6 8.5 - 10.5 mg/dL LANIE HERNÁNDEZ NIUM Estimated GFR 51 (L) >=60 LANIE CHARLESIU M Comment: This estimated GFR (eGFR) value [...] the following links into your internet browser. [email or web address] Specimen Anatomical Collection Method Collection Time Receive d Time (Source) Location / / Volume Laterality Blood specimen 05/29/2015 2:12 PM 015 2:26 (specimen) EDT PM EDT Resulting Agency Comment Spec In Lab Jannie Oviedo MD CHEMISTRY ORDERABLES Performing Organization Address City/State/[place] [address] LANIE HARRELL documented in this encounter Visit Diagnoses Diagnosis CKD (chronic kidney disease), stage III Chronic kidney disease, Stage III (moder ate) documented in this encounter Care Teams Orchard Sprayer Relationship Specialty Start Date End Date Uyen Zamora MD PCP - General 07/01/13 [address] [place] [address] documented as of this encounter
--- OUTSIDE RECORDS SUMMARY | 2022-03-17 16:40 | XMS_ITS | Encounter Summary ---
:1935 Author Organization [place] [address] Care Team Providers Name Role Phone Uyen Gerard MD Primary Care Provider Encounter Details Date Type Department Care Team Description 04/25/2015 Orders Only Nephrology Hypertension at Jannie Oviedo MD [facility] Rachna [place] [address] [place], [place] [id number] [phone] (Wo rk) Social History Tobacco Use Types [...] Name Priority Date/Time Associated Diagnosis Comme nts FILM LIBRARY Routine 04/25/2015 4:43 AM Results f or this STORAGE ONLY CT EDT procedure ar e in CHEST ABDOMEN the results PELVIS section. documented in this encounter Results Film Library- Storage only CT Chest abdomen Pelvis (04/25/2015 4:43 AM EDT) Anatomical Region Laterality Modality Chest, Abdomen, Pelvis Other Specimen (Source) Anatomical Collection Method Collection Time Re ceived Time Location / / Volume Laterality 04/25/2015 4:43 AM EDT Narrative 05/04/2015 4:48 AM EDT This is a Non-reportable exam Procedure Note LISA, UNSIGNED REPORT - 05/04/2015Formatt ing of this note might be different from the original. This is a Non-reportable exam Jannie Oviedo MD [facility] FILM LIBRARY ORDERABLES documented in this encounter Visit Diagnoses Not on filedocumented in this encounter Care Teams Geek Squad Agent Relationship Specialty Start Date End Date Uyen Gerard MD PCP - General 07/01/[address] [place] [address] documented as of this encounter
--- OUTSIDE RECORDS SUMMARY | 2022-03-17 16:40 | XMS_ITS | Encounter Summary ---
:1935 Author Organization [facility] [place] [address] Care Team Providers Name Role Phone Uyen Gerard MD Primary Care Provider Encounter Details Date Type Department Care Team Description 11/06/2013 Notes Only [facility] [address] [place] [phone] [place] [address] [address] [place], [place] [address] (Wo rk) Social History Tobacco Use Types Packs/Day Years Used Date Never Smoker Smokeless Tobacco: Never Used Alcohol Use Standard Drinks/Week Comments Yes 7 (1 standard drink = 0.6 oz pure alcoho l) Sex Assigned at Date Recorded Female 03/31/2021 2:10 PM EDT documented as of this encounter Progress Notes Ming Carter MD - 11/06/2013 10:[address] [facility] 08-03-13 Normal biventricular function, normal pulmonary pressures. Aortic sclerosis but no stenosis. documented in this encounter Plan of Treatment Not on filedocumented as of this encounter Visit Diagnoses Not on filedocumented in this encounter Care Teams Photo Journalist Relationship Specialty Start Date End Date Uyen Gerard MD PCP - General 07/01/13 [address]ina [address] [place] [address] documented as of this encounter
--- OUTSIDE RECORDS SUMMARY | 2022-03-17 16:42 | XMS_ITS | Encounter Summary ---
:1935 Author Organization [facility] Address [address] [place] [address] Care Team Providers Name Role Phone Uyen Gerard MD Primary Care Provider Yazan Hawk MD Unavailable [phone] Reason for Visit Reason Onset Date Comments Diagnostic Imaging Report 02/09/2022 Encounter Details Date Type Department Care Team Description 02/09/2022 Telephone [facility] - Geraldine Welch Diagnos tic Imaging [facility] - JARON Baird Report [place] [phone] [facility] [place] [address] [phone] [place] [address] Social History Tobacco Use Types Packs/Day Years Used Date Never Smoker Smokeless Tobacco: Never Used Sex Assigned at Date Recorded Not on file documented as of this encounter Functional Status Functional Status Response Date of Assessment Because of a physical, mental, or emotional condition, No 06/08/2020 does this person have difficulty doing errands alone such as visiting a doctor's office or shopping? Cognitive Status Response Date of Assessment Because of a physical, mental, or emotional condition, No 06/08/2020 does this person have serious difficulty concentrating, remembering, or making decisions? documented as of this encounter Miscellaneous Notes Telephone Encounter - Geraldine Welch PA-C - 02/10/2022 1108 EDT Notified patient of her COVID negative result and reviewed plan of continuing same treatment plan that was discussed at visit. Patient reports feeling some improvement after neb treatment last night and starting medication. Instructed to follow up with PRIMARY CARE PROVIDER to ensure improving later this week. Patient in agreement with plan. 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 Julia elephone Encounter - Treasure Brewster - 02/10/2022 1019 EDT Provider note read to the patient. She understands and does not need a call back and will follow plan of care. elephone Encounter - Geraldine Welch PA-C - 02/09/2022 1624 EDT Tried both home and call numbers and left vm on cell (per patient request) instructing to call office back regarding chest XRAY results. Plan will be to continue the treatment we had discussed at office visit including doxy, prednisone, inhalers/nebs. documented in this encounter Plan of Treatment Upcoming Encounters Date Type Specialty Care Team Description 01/05/2023 Office Visit Cardiology Yazan Hawk MD [address] [place], [place] [address]A [address] [place] [phone] (Wo rk) documented as of this encounter Visit Diagnoses Not on filedocumented in this encounter Care Teams Die Trouble Shooter Relationship Specialty Start Date End Date Uyen Gerard MD PCP - General 02/18/[address] [place] [phone] Yazan Hawk MD Cardiovascular Disease 08/12/21 [address] [facility] [address] [place] [address] documented as of this encounter
--- OUTSIDE RECORDS SUMMARY | 2022-03-17 16:42 | XMS_ITS | Encounter Summary ---
:1935 Author Organization [facility] Address [address] [place] [address] Care Team Providers Name Role Phone Uyen Gerard MD Primary Care Provider Yazan Hawk MD Unavailable [phone] Reason for Visit Reason Comments Other Encounter Details Date Type Department Care Team Description 09/27/2021 Refill [facility] [place]azan Fam MD Other Cardiology Clinic [address] [facility] [place] [address] [place] [address] (Wo rk) Social History Tobacco Use Types [...] making decisions? documented as of this encounter Ordered Prescriptions Prescription Sig Dispensed Refills Start Date End Date flecainide (TAMBOCOR) 50 TAKE 1 TABLET TWICE 180 Tablet 3 mg tablet A DAY documented in this encounter Plan of Treatment Upcoming Encounters Date Type Specialty Care Team Description 01/05/2023 Office Visit Cardiology Yazan Hawk MD [address] [place] [address] [address] [place] [address] (Wo rk) documented as of this encounter Visit Diagnoses Not on filedocumented in this encounter Discontinued Medications Medication Sig Discontinue Reason Start Date End Date flecainide (TAMBOCOR) 50 TAKE 1 TABLET TWICE 1 09/27/2021 mg tablet A DAY documented as of this encounter Care Teams Mobile Home Park Manager Relationship Specialty Start Date End Date Uyen Gerard MD PCP - General 02/18/[address] [place] [phone] Yazan Hawk MD Cardiovascular Disease 08/12/[address] [place] [address] [address] [place] [address] documented as of this encounter
--- OUTSIDE RECORDS SUMMARY | 2022-03-17 16:42 | XMS_ITS | Encounter Summary ---
:1935 Author Organization [facility] Address [address] [place] [address] Care Team Providers Name Role Phone Uyen Gerard MD Primary Care Provider Yazan Hawk MD Unavailable Encounter Details Date Type Department Care Team Description 08/06/2020 Lab Requisition [facility] Outr Resulting Lab, Pathology & Laboratory Provider [facility] [address] [place], [place] [phone] Social History Tobacco Use Types Packs/Day Years [...] making decisions? documented as of this encounter Plan of Treatment Upcoming Encounters Date Type Specialty Care Team Description 01/05/2023 Office Visit Cardiology Yazan Hawk MD [address] [place] [address] [address] [place] [address] (Wo rk) documented as of this encounter Procedures Procedure Name Priority Date/Time Associated Diagnosis Comme nts COVID-19 TEST [facility] Today 08/06/2020 9:46 EST LAB PCR COVID-19 TESTING Routine 08/06/2020 9:46 EST Resu lts for this procedure are i n the results section. documented in this encounter Results COVID-19 TEST [facility] LAB PCR (08/06/2020 9:46 EST) Specimen Swab - Entire nasopharynx (body structur e) Performing Organization Address [facility] Phon e Number [facility] [address] [place] [address] SERVICES COVID-19 TESTING (08/06/2020 9:46 EST) COVID-19 rt-PCR Negative Negative [facility] Result Comment: [facility] Negative results do not prec lude 2019-nCoV infection and should not be used as the sole basis for treatment or other patient management decisions. Negative results must be combined with clinical observa SERVICES tions, patient history, and epidemiological informatio n. This test was developed and its performance characteristics determined by [facility]. It has not been cleared or approved by the US Food and Drug Administration. FDA does not require this test to go through premarket FDA review. This t est is used for clinical purposes. It should not be regarded as investigational or for research. This laboratory is certified under the Clinical Laboratory Improvement Amendm ents (CLIA) as qualified to perform high complexity clinical laboratory testing. This test is based on the CD C COVID-19 Emergency Use Authorization (EUA) assay, with minor modification as defined by the FDA Performed on the [employer] In[employer] 7 Flex . Performing Lab [facility] Hospital Lab [facility] SERVICES Specimen Swab Performing Organization Address City/[facility] Phon e Number [facility] [address] [place] [address] SERVICES documented in this encounter Visit Diagnoses Not on filedocumented in this encounter Care Teams In Store Representative Relationship Specialty Start Date End Date Uyen Gerard MD PCP - General 02/18/[address] [phone] Yazan Hawk MD Cardiovascular Disease 08/12/21 [address] [facility] [address] [place] [address] documented as of this encounter
--- OUTSIDE RECORDS SUMMARY | 2022-03-17 16:42 | XMS_ITS | Encounter Summary ---
:1935 Author Organization [facility] Address [address] [place] [address] Care Team Providers Name Role Phone Uyen Gerard MD Primary Care Provider Yazan Hawk MD Unavailable [phone] Reason for Referral Cardiology (Routine/Next Available) - New Request Specialty Diagnoses / Procedures Referred By Contact Refer red To Contact Diagnoses PAF (paroxysmal atrial fibrillation) ([facility]) ([facility]) Yazan Hawk MD Procedures EKG 12-LEAD [address] [facility] [place] [address] Referral ID Status Reason Start Date Expiration Date Visits V isits Requested Authorized [id number] New Request 02/21/2022 1 1 Encounter Details Date Type Department Care Team Description 02/21/2022 Orders Only [facility] - Yazan Hawk PAF (paroxysmal atrial [facility] Cardiology Clin ic MD Cristobal fibrillation) [address] [facility] ([facility]) ([facility]) [place] [address] [address] (Primary Dx) [phone] [place] [address] Social History Tobacco Use Types Packs/Day Years [...] 01/05/2023 Office Visit Cardiology Yazan Hawk MD [address] [place], [place] [address]A [facility] [address] [place], [place] [phone] (Wo rk) documented as of this encounter Results EKG 12-LEAD (02/24/2022 9:18 EDT) Specimen Narrative [facility] - 11:24 EDT ? CVC ? Test Date: ?2022-02-24 Pat Name: ? TALITA VELASCO ?Department: ? Room: ? Gender: ? Female ? 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 [place] : ?1935 ? Requested By: ROSIBEL SPRINGER Order Number: [id number] ? [place]: ?? AGAPITO XAVIER MD ? Measurements Intervals ?Buena ? Rate: ? 78 ? P: ? AR: ? 248 ?QRS: ?-44 QRSD: ? 76 ? T: ?32 QT: ? 392 ? QTc: ?446 ? Interpretive Statements Sinusrhythm 1st degree AV block Left anterior fascicular block Compared to ECG 08/12/2021 10:11:02 No significant changes I reviewed the tracing and have either a greed or edited the findings in this report. Electronically Signed On 02-25-20 11:24:49 EDT by AGAPITO XAVIER MD. 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 Electronically Signed On 02-25-20 11:24:49 EDT by AGAPITO XAVIER MD. Performing Organization Address City/State/ZIP Code Phon e Number [facility] documented in this encounter Visit Diagnoses Diagnosis PAF (paroxysmal atrial fibrillation) (HC C-CMS) (HCC) - Primary Atrial fibrillation PAF (paroxysmal atrial fibrillation) (HC C-CMS) (HCC) - Primary Atrial fibrillation Essential hypertension Unspecified essential hypertension Mixed hyperlipidemia manager intermediate current use of antiarrhythmic medical therapy Current use of skilled nursing anticoagulation Long-term (current) use of anticoagulant s Sleep apnea in adult documented in this encounter Care Teams Railroad Repairer Relationship Specialty Start Date End Date Uyen Gerard MD PCP - General 02/18/[address] [phone] Yazan Hawk MD Cardiovascular Disease 08/12/21 [address] [facility] [address] [place] [phone] documented as of this encounter
--- OUTSIDE RECORDS SUMMARY | 2022-03-17 16:42 | XMS_ITS | Encounter Summary ---
:1935 Author Organization [facility] Address [address] [place] [address] Care Team Providers Name Role Phone Uyen Gerard MD Primary Care Provider Reason for Visit Reason Comments Atrial Fibrillation Encounter Details Date Type Department Care Team Description 06/08/[address] [facility] - Yazan Hawk oxysmal atrial fibrillation ([facility]) (Primary Dx); [facility] [place] MD Cristobal Essential hypertension; Clinic [address] Mixed hyperlipidemia; [address] Venous insufficiency; [place] [address] [place], [place] Sleep apnea in adult; [phone] Chronic obstructive pulmonary disease, u nspecified COPD type ([facility]) Social History Tobacco Use Types Packs/Day Years Used Date Never Smoker Smokeless Tobacco: Never Used Sex Assigned at Date Recorded Not on file documented as of this encounter Last Filed Vital Signs Vital Sign Reading Time Taken Comments Blood Pressure 116/74 06/08/2020 1022 EDT Pulse 73 06/08/2020 1022 EDT Temperature - - Respiratory Rate - - Oxygen Saturation 93% 06/08/2020 1022 EDT Inhaled Oxygen Concentration - - Weight 61 kg (134 lb 8 oz) 06/08/2020 1022 EDT Height 160 cm (5' 3) 06/08/2020 1022 EDT Body Mass Index 23.83 06/08/2020 1022 EDT documented in this encounter Functional Status Functional Status Response [...] Sig Dispensed Refills Start Date End Date metoprolol SUCCinate Take 1 Tab by mouth 180 Tab 3 201902/08/2021 (TOPROL-XL) 50 mg tablet 2 times daily. documented in this encounter Progress Notes Yazan Hawk MD - 06/08/2020 1045 EDT [facility] [place] Subjective: Chief Complaint(s): Atrial Fibrillation HPI: 85-year-old woman with paroxysmal atrial fibrillation, hypertension, hyperlipidemia, COPD, migraines, history of renal cancer status post right nephrectomy 2004. First episode of AF with RVR 08/2016, received ditiazem with spont. conversion to sinus rhythm during ER evaluation. Started on metoprolol and apixaban. Was hospitalized 11/2018 in [place], with fluttering in her chest and lightheadedness. Extensive work-up included head CT and MRI, echocardiogram, EKG, chest x-ray, renal artery Doppler, cardiac catheterization, sleep study and extensive lab testing. Several heart medications were changed/newly started (metoprolol 200 mg, losartan 100 mg, qxdkuohisw14 mg, amlodipine 5 mg). By her report, her cardiac cath did not show significant disease. Today in the office, she reports doing very well. She rarely gets short of breath with vigorous exercise. She feels also that her circulation is not great, with her fingertips often easily getting cold& numb, for example when driving. She also gets more tired more easily, has to sit down for a moment, then tiredness goes away. She denies recent chest pain, shortness of breath with ADLs, recent syncope, orthopnea, PND, edema, bleeding, digestive troubles. She has had hypertension since her 50s, she denies a history of [place], diabetes, TIA/CVA, cardiomyopathy, peripheral vascular disease, thyroid disease. Data review: Labs 02/15/2019: Creatinine 1.06, estimated GFR 50. Sleep study 12/2018, [facility]: Mild obstructive sleep apnea, not using CPAP. Event monitor ([employer] SEEQ) 10/07/16-11/08/16: Baseline sinus rhythm, daily heart rate average 70-90/min, heart rate spectrum 60-150/, 4 days with documented AF episodes, minutes to a few hours. Echocardiogram, [facility], 09/01/2016: Normal LV size and function, mild LVH, LVEF 65-70%, normal regional wall motion. MAC, moderate focal calcification of the posterior mitral leaflet, mild MR, mildly dilated LA, RV size upper normal limits, low normal RV systolic function, mildly dilated RA, moderate TR, mildly increased PA pressure, 42 mmHg, trivial pericardial effusion. Holter EKG, [facility], 06/2016: Sinus rhythm, rare single PAC, 3 bursts SVT, longest 9 beats, 172/min, noAF. Rare single PVC, no VT. No bradycardia. No symptoms. Average 1 minute heart rate 88/min, range 67-112/min. Chest x-ray, [facility], 08/31/2015: Heart at the upper limits of normal, lungs generally clear, except for some faint reticulonodular densities seen in the right midlung and apex laterally, consistent with radiodensities identified on CT. Chest CT, [facility], 08/30/2016: Market biconvex thoracolumbar scoliosis, scattered multifocal areas of reticulonodular and minor consolidative pulmonary opacities seen bilaterally, the findings are nonspecific but may represent areas of acute pneumonia, these are more prominent than extensive than on the previous CT of 04/2015. No pleural effusion, no pneumothorax, no evidence of pulmonary embolic disease, no major vascular abnormality seen. Images of the liver, spleen and left kidney are unremarkable inappearance. Current Outpatient Medications Medication Sig Dispense Refill ??? amLODIPine (NORVASC) 5 mg tablet 1 tab(s) orally once a day ??? apixaban (ELIQUIS) 5 mg tablet Take 1 Tab by mouth 2 times daily. 180 Tab 1 ??? ascorbic acid, vitamin C, 1,000 mg tablet 1 tab(s) orally once a day ??? atorvastatin (LIPITOR) 10 mg tablet 1 tab orally at bedtime ??? calcium carbonate-vitamin D3 (CALTRATE WITH VITAMIN D3) 600 mg(1,500mg) -800 unit tablet 1 tab(s) orally 2 times a day ??? cholecalciferol, Vitamin D3, 2,000 unit tablet 1 tab(s) orally once a day ??? Cod Liver Oil capsule 1 cap(s) orally once a day ??? docusate sodium (COLACE CLEAR) 50 mg capsule 2 cap(s) orally once a day ??? flecainide (TAMBOCOR) 50 mg tablet Take 1 Tab by mouth 2 times daily. 180 Tab 1 ??? kescerypzfz-nucspwvmv-bjgjhvgz (TRELEGY ELLIPTA) 100-62.5-25 mcg 1 puff inhaled once a day ??? levalbuterol (XOPENEX) 0.63 mg/3 mL nebulization 3 mL by nebulizer 3 times a day ??? losartan (COZAAR) 50 mg tablet 2 tab orally Daily ??? metoprolol SUCCinate (TOPROL-XL) 50 mg tablet Take 1 Tab by mouth 3 times daily. ??? spironolactone (ALDACTONE) 25 mg tablet Take 25 mg by mouth daily. ??? sumatriptan (IMITREX) 25 mg tablet Take 25 mg by mouth as needed for Migraine. No current facility-administered medications for this visit. Past Medical History Paroxysmal atrial fibrillation, dx 08/2016, [id number] score =4, Started on Flecainide in [place], 11/2018 Cardiac cath, [place], [place] 11/2018: No significant coronary disease Hypertension Hyperlipidemia COPD/emphysema History of renal cancer, status post right nephrectomy 2005 Migraines Family History Mother: 94 yrs, atrial fibrillation Paternal Grand Mother: , angina, from [place] in her 70ies Father passed in 1984. Social History General: no Tobacco use. Second Hand Smoke: yes, lots of 2nd hand smoke exposure, some asbestos exposure. Alcohol: yes, 1 drink daily, wine. Caffeine: yes, coffee, 3 daily. no Special diet, low sodium at homeregularly. Living situation: lives with . Marital/Partner Status: . Suspicion of abuseSuspicion of abuse No, Date Assessed 01/06/2017. Domestic violence screen Do you feel safe at home? Yes, Date: 07/07/2017. Learning Barriers Assessed On: 01/06/2017, Does the patient have barriers to learning? No. 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 Allergies codeine: stomach upset: Side Effects Review of Systems GENERAL: - A 10-system ROS was performed. Pertinent items as above. Otherwise negative.. Objective: Examination: Vitals: BP 116/74 (BP Cuff Location: Right arm, BP Patient Position: Sitting, BP Cuff Sizes: Adult, regular) Pulse 73 Ht 160 cm (63) Wt 61 kg (134 lb 8 oz) SpO2 93% BMI 23.83 kg/m?? Body mass index is 23.83 kg/m??. Physical Exam General Exam: GENERAL APPEARANCE: no acute distress, pleasant, cooperative. HEENT EYES: conjunctiva clear, sclerae anicteric. NECK: supple, no JVD, no carotid bruit. CHEST: scoliosis. HEART: regular rate and rhythm, normal S1S2, no murmurs, rub or gallop. LUNGS: clear to auscultation & percussion, good air entry bilaterally. ABDOMEN: soft, NT/ND, BS present. EXTREMITIES: no clubbing, no cyanosis, no edema. PERIPHERAL PULSES: carotid, radial, PT: 2+ bilaterally. SKIN: warm & dry. NEUROLOGIC EXAM: alert & oriented x3, nonfocal, normal speech, gait normal. EKG, 07/19/2019: Sinus rhythm with first-degree AV delay, 60/min, SC 226 ms, QRS 102 ms, QT 412 ms, incomplete right bundle branch block and L anterior fascicular block. EKG, 06/08/2020: Sinus rhythm with first-degree AV delay and PACs. 71/min, SC 232 ms, QRS 92 ms, QT 398 ms, QTC 432 ms, left anterior fascicular block. Assessment & Plan: 1. Paroxysmal atrial fibrillation (HCC-CMS) 2. Essential hypertension 3. Mixed hyperlipidemia 4. Venous insufficiency 5. Sleep apnea in adult 6. Chronic obstructive pulmonary disease, unspecified COPD type (HCC-CMS) 84-year-old woman with paroxysmal atrial fibrillation, hypertension, hyperlipidemia, COPD, migraines, history of renal cancer status post right nephrectomy 2004. AF was diagnosed in 08/2016, terminatedspontaneously. Her EDL2LP0-ANRi score is 4, anticoagulation with apixaban/Eliquis is appropriate. Symptomatic recurrence of AF in [place] 11/2018. Cardiac cath was negative, started on flecainide for suppression of PAF. EKG today again with sinus rhythm and acceptable QRS width. Her blood pressure showed acceptable measurements in recent months. However, she occasionally feels fatigued which might be related to iatrogenic hypotension, will try to reduce Metoprolol. Total ljaw-tx-bffr time: 25 minutes, >50% spent counseling on above issues. Treatment 1. AF (paroxysmal atrial fibrillation) Decrease metoprolol capsule, extended release, 50mg BID Continue flecainide tablet, 50 mg, 1 tab(s), orally, every 12 hours Continue Apixaban 1 tab(s), 5 mg, orally, 2 times a day 2. Essential hypertension Continue losartan tablet, 50 mg, 2 tab, orally, Daily Continue amlodipine tablet, 5 mg, 1 tab(s), orally, once a day 3. Mixed hyperlipidemia Continue atorvastatin tablet, 10 mg, 1 tab, orally, at bedtime 4. Chronic obstructive pulmonary disease, unspecified COPD type Continue Trelegy Ellipta, 1 puff, inhaled, once a day Continue levalbuterol solution, 0.63 mg/3 mL, 3 mL, by nebulizer, 3 times a day Yazan Hawk MD documented in this encounter Plan of Treatment Upcoming Encounters Date Type Specialty Care Team Description 01/05/2023 Office Visit Cardiology Yazan Hawk MD [address] [place] [address] [address] [place] [phone] (Wo rk) documented as of this encounter Procedures Procedure Name Priority Date/Time Associated Diagnosis Comme nts EKG 12-LEAD 06/08/2020 10:28 EDT Results for this procedure are i n the results section . documented in this encounter Results EKG 12-LEAD (06/08/2020 10:28 EDT) Specimen Narrative [facility] - 020 10:28 EDT ? [facility] Cardiology ? Test Date: ?2020-06-08 10:28:42 Pat Name: ? TALITA VELASCO ?Department: ?Room: ? Gender: ? F ?Senior Counsel Commercial: ?? ES : ?1935 ? Requested By: Order Number: ?Reading MD: ?? Ryne Rickschke, MD ? Measurements Intervals ?[place] ? Rate: ? 71 ? P: ?73 SC: ? 232 ?QRS: ?-46 QRSD: ? 92 ? T: ?47 QT: ? 398 ? QTc: ?432 ? Interpretive Statements Sinus rhythm with 1st degree AV block wi th premature supraventricular complexes and with occasional premature ventricula r com Left anterior fascicular block Abnormal ECG Compared to ECG 2019 09:55:17 Atrial premature complex(es) now present Ventricular premature complex(es) now pr esent Left anterior fascicular block now prese nt Electronically Signed On 06-08-2020 16:56 :54 EDT by Ryne Machuca MD [email or web address] Procedure Note Ryne Machuca MD - 06/08/2020 [facility] Cardiology Test Date: 2020-06-08 10:28:42 Pat Name: TALITA VELASCO Department: Room: Gender: F Senior Counsel Commercial: PEARL : 1935 Requested By: Order Number: Reading MD: Ryne Machuca MD Measurements Intervals [place] Rate: 71 P: 73 SC: 232 QRS: -46 QRSD: 92 T: 47 QT: 398 QTc: 432 Interpretive Statements Sinus rhythm with 1st degree AV block wi th premature supraventricular complexes and with occasional premature ventricula r com Left anterior fascicular block Abnormal ECG Compared to ECG 2019 09:55:17 Atrial premature complex(es) now present Ventricular premature complex(es) now pr esent Left anterior fascicular block now prese nt Electronically Signed On 06-08-2020 16:56 :54 EDT by Ryne Machuca MD [email or web address] Performing Organization Address City/State/ZIP Code Phon e Number [facility] [address] [place] [address] documented in this encounter Visit Diagnoses Diagnosis Paroxysmal atrial fibrillation ([facility]) ([facility]) - Primary Atrial fibrillation Essential hypertension Unspecified essential hypertension Mixed hyperlipidemia Venous insufficiency Unspecified venous (peripheral) insuffic iency Sleep apnea in adult Chronic obstructive pulmonary disease, u nspecified COPD type ([facility]) ([facility]) documented in this encounter Discontinued Medications Medication Sig Discontinue Reason Start Date End Date metoprolol succinate 100 1.5 tabs orally Alternate therapy 06/08/2020 mg capsule,sprinkle,ER 100mg AM, 50 mg PM 24hr documented as of this encounter Care Teams Mash Filter Press Operator Relationship Specialty Start Date End Date Uyen Gerard MD PCP - General 02/18/[address] [place] [phone] documented as of this encounter
--- OUTSIDE RECORDS SUMMARY | 2022-03-17 16:42 | XMS_ITS | Encounter Summary ---
:1935 Author Organization [facility] Address [address] [place] [address] Care Team Providers Name Role Phone Uyen Gerard MD Primary Care Provider Yazan Hawk MD Unavailable [phone] Reason for Visit Reason Comments Other follow up Encounter Details Date Type Department Care Team Description 08/12/2021 Office Visit [facility] - Yazan Hawk Par oxysmal atrial fibrillation (HCC-CMS) (HCC) (Primary Dx); [facility] [place] MD Cristobal Essential hypertension; Clinic [address] Sleep apnea in adult; [address] Current use of moth exterminator anticoagulation ; [place] [address] [place], [place] USP current use of ant iarrhythmic medical therapy [phone] Social History Tobacco Use Types Packs/Day Years Used Date Never Smoker Smokeless Tobacco: Never Used Sex Assigned at Date Recorded Not on file documented as of this encounter Last Filed Vital Signs Vital Sign Reading Time Taken Comments Blood Pressure 122/66 08/12/2021 1000 EST Pulse 65 08/12/2021 1000 EST Temperature - - Respiratory Rate - - Oxygen Saturation 93% 08/12/2021 1000 EST Inhaled Oxygen Concentration - - Weight 61.2 kg (135 lb) 08/12/2021 1000 EST Height 160 cm (5' 3) 08/12/2021 1000 EST Body Mass Index 23.91 08/12/2021 1000 EST documented in this encounter Functional Status Functional [...] making decisions? documented as of this encounter Progress Notes Yazan Hawk MD - 08/12/2021 1000 EST [facility] [place] Note Subjective: Chief Complaint(s): Other (follow up) HPI: 86-year-old woman with paroxysmal atrial fibrillation, hypertension, hyperlipidemia, COPD, migraines, history of renal cancer status post right nephrectomy 2004. First episode of AF with RVR 08/2016, received ditiazem with spont. conversion to sinus rhythm during ER evaluation. Started on metoprolol and apixaban. Was hospitalized 11/2018 in [place], with fluttering in her chest and lightheadedness. Extensive work-up included head CT and MRI, echocardiogram, EKG, chest x-ray, renal artery Doppler, cardiac catheterization, sleep study and extensive lab testing. Several heart medications were changed/newly started (metoprolol 200 mg, losartan 100 mg, tkjvdjynar71 mg, amlodipine 5 mg). By her report, cardiac cath did not show significant disease. Returns to the office with her spouse, reports doing fine. She notes slightly more shortness of breath, possibly attribute able to COPD, she is [place] [facility] She gave up on her CPAP machine, as she did not find a way to make the system comfortable. She denies recent chest pain, shortness of breath with ADLs, recent syncope, orthopnea, PND, edema, bleeding. She has chronic constipation issues. She has had hypertension since her 50s, she denies a history of [place], diabetes, TIA/CVA, cardiomyopathy, peripheral vascular disease, thyroid disease. She and her recently received Covid booster and flu shots without problems. They are planning to travel to [place] in September and [facility] in December 2021. Data review: Labs 02/15/2019: Creatinine 1.06, estimated GFR 50. Sleep study 12/2018, [facility]: Mild obstructive sleep apnea, not using CPAP. Event monitor ([employer] SEEQ) 10/07/16-11/08/16: Baseline sinus rhythm, daily heart rate average 70-90/min, heart rate spectrum 60-150/, 4 days with documented AF episodes, minutes to a few hours. Echocardiogram, [facility], 09/01/2016: Normal LV size and function, mild LVH, LVEF 65-70%, normal regional wall motion. MAC, moderate focal calcification of the posterior mitral leaflet, mild MR, mildly dilated LA, RV size upper normal limits, low normal RV systolic function, mildly dilated RA, moderate TR, mildly increased PA pressure, 42 mmHg, trivial pericardial effusion. Holter EKG, [facility], 06/2016: Sinus rhythm, rare single PAC, 3 bursts SVT, longest 9 beats, 172/min, noAF. Rare single PVC, no VT. No bradycardia. No symptoms. Average 1 minute heart rate 88/min, range 67-112/min. Chest x-ray, [facility], 08/31/2015: Heart at the upper limits of normal, lungs generally clear, except for some faint reticulonodular densities seen in the right midlung and apex laterally, consistent with radiodensities identified on CT. Chest CT, [facility], 08/30/2016: Market biconvex thoracolumbar scoliosis, scattered multifocal [...] 2 times daily. 180 Tab 1 ??? vaqmtjbzegh-aublqgcfd-aoypdwce (TRELEGY ELLIPTA) 100-62.5-25 mcg 1 puff inhaled [...] Medical History Paroxysmal atrial fibrillation, dx 08/2016, [id number] score =4, Started on Flecainide in [place], 11/2018 Cardiac cath, [place], [place] 11/2018: No significant coronary disease Hypertension Hyperlipidemia COPD/emphysema History of renal cancer, status post right nephrectomy 2005 Migraines Family History Mother: 94 yrs, atrial fibrillation Paternal Grand Mother: , angina, from [place] in her 70ies Father passed in 1984. [...] to learning? No. 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 Allergies codeine: stomach upset: Side Effects Review of Systems GENERAL: - A 10-system ROS was performed. Pertinent items as above. Otherwise negative.. Objective: Examination: Vitals: BP 122/66 (BP Cuff Location: Right arm, BP Patient Position: Sitting, BP Cuff Sizes: Adult, regular) Pulse 65 Ht 160 cm (63) Wt 61.2 kg (135 lb) SpO2 93% BMI 23.91 kg/m?? Body mass index is 23.91 kg/m??. Physical Exam General Exam: GENERAL APPEARANCE: [...] Sinus rhythm with first-degree AV delay, 60/min, KS 226 ms, QRS 102 ms, QT 412 ms, incomplete right bundle branch block and L anterior fascicular block. EKG, 06/08/2020: Sinus rhythm with first-degree AV delay and PACs. 71/min, KS 232 ms, QRS 92 ms, QT 398 ms, QTC 432 ms, left anterior fascicular block. EKG 08/12/2021: Sinus bradycardia with sinus arrhythmia and first-degree AV delay, 59/min, KS 244 ms,QRS 88 ms, QT 404 ms, left anterior fascicular block. Assessment & Plan: 1. Paroxysmal atrial fibrillation (HCC-CMS) ([facility]) EKG 12-LEAD 2. Essential hypertension 3. Sleep apnea in adult 4. Current use of moth exterminator anticoagulation 5. 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 AF was diagnosed in 08/2016, terminatedspontaneously. Her [id number] score is 4, anticoagulation with apixaban/Eliquis is appropriate. Symptomatic recurrence of AF in [place] 11/2018. Cardiac cath was negative, started on flecainide for suppression of PAF. EKG today again with sinus rhythm and acceptable, stable QRS width. Her blood pressure shows acceptable measurements in recent months with Metoprolol 75&50mg/d. Continue current meds. Still with increased SOB, likely related to deconditioning and suboptimally treated COPD. Encouraged her to increase regular exercise this spring. Yazan Hawk MD documented in this encounter Plan of Treatment Upcoming Encounters Date Type Specialty Care Team Description 01/05/2023 Office Visit Cardiology Yazan Hawk MD [address] [place] [address] [address] [place] [phone] (Wo rk) documented as of this encounter Procedures Procedure Name Priority Date/Time Associated Diagnosis Comme nts ECG REPORT - 08/12/2021 11:59 SCANNED EST EKG 12-LEAD Routine 08/12/2021 10:11 Paroxysmal atrial Result s for this EST fibrillation procedure are i n (HCC-CMS) (HCC) the results section. documented in this encounter Results EKG 12-LEAD (08/12/2021 10:11 EST) Specimen Narrative [facility] - 11:52 EST ? CVC ? Test Date: ?2021-08-12 Pat Name: ? TALITA LEODAN ?Department: ? Room: ? Gender: ? Female ? Field Hand: ?? KJW : ?1935 ? Requested By: ROSIBEL SPRINGER Order Number: [id number] ? Reading MD: ?? JUAN ROBLES MD ? Measurements Intervals ?[place] ? Rate: ? 60 ? P: ?71 KS: ? 248 ?QRS: ?-47 QRSD: ? 80 ? T: ?44 QT: ? 400 ? QTc: ?400 ? Interpretive Statements Sinus rhythm with 1st degree AV block Left anterior fascicular block Left axis deviation Compared to ECG 02/08/2021 10:49:17 No significant change I reviewed the tracing and have either a greed or edited the findings in this report. Electronically Signed On 08-12-20 11:52:17 EST by JUAN ROBLES MD. Procedure Note Juan Robles MD - 08/12/2021 [facility] Test Date: 2021-08-12 Pat Name: TALITA VELASCO Department: Room: Gender: Female Field Hand: CORINA : 1935 Requested By: ROSIBEL SPRINGER Order Number: [id number] Reading MD: Amanda ROBLES MD Measurements Intervals [place] Rate: 60 P: 71 KS: 248 QRS: -47 QRSD: 80 T: 44 QT: 400 QTc: 400 Interpretive Statements Sinus rhythm with 1st degree AV block Left anterior fascicular block Left axis deviation Compared to ECG 02/08/2021 10:49:17 No significant change I reviewed the tracing and have either a greed or edited the findings in this report. Electronically Signed On 08-12-20 11:52:17 EST by JUAN ROBLES MD. Performing Organization Address City/State/[facility] Code Phon e Number [facility] documented in this encounter Visit Diagnoses Diagnosis Paroxysmal atrial fibrillation (HCC-CMS) (HCC) - Primary Atrial fibrillation Essential hypertension Unspecified essential hypertension Sleep apnea in adult Current use of moth exterminator anticoagulation Long-term (current) use of anticoagulant s termite exterminator current use of antiarrhythmic medical therapy documented in this encounter Orders Procedures Count Last Ordered Date First Ordered Date ECG REPORT - SCANNED 1 08/12/2021 documented in this encounter Care Teams Admin Asst Relationship Specialty Start Date End Date Uyen Gerard MD PCP - General 02/18/18 [address] [facility] [address] [place] [address] Yazan Hawk MD Cardiovascular Disease 08/12/21 [address] [facility] [place] [address] documented as of this encounter
--- OUTSIDE RECORDS SUMMARY | 2022-03-17 16:42 | XMS_ITS | Encounter Summary ---
:1935 Author Organization [facility] Address [address] [place] [address] Care Team Providers Name Role Phone Unknown, Provider Primary Care Provider Encounter Details Date Type Department Care Team Description 02/15/2018 Hospital Encounter [facility]- Jennifer Unknown, Provider, [facility] [phone] [place] [address] (Work) [phone] Social History Tobacco Use Types Packs/Day Years Used Date Never Assessed Sex Assigned at Date Recorded Not on file documented as of this encounter Discharge Disposition Disposition Code Departure Means Destination Home or Self [place] documented in this encounter Plan of Treatment Upcoming Encounters Date Type Specialty Care Team Description 01/05/2023 Office Visit Cardiology Yazan Hawk MD [address] [place] [phone] (Wo rk) documented as of this encounter Visit Diagnoses Not on filedocumented in this encounter Care Teams Surface Supply Breathing Apparatus Relationship Specialty Start Date End Date Unknown, Provider, PCP - General 09/02/16 02/17/18 documented as of this encounter
--- OUTSIDE RECORDS SUMMARY | 2022-03-17 16:42 | XMS_ITS | Encounter Summary ---
:1935 Author Organization [facility] Address [address] [place] [address] Care Team Providers Name Role Phone Uyen Gerard MD Primary Care Provider Reason for Visit Reason Onset Date Comments Medication Management 03/01/2020 Encounter Details Date Type Department Care Team Description 03/01/2020 Telephone [facility] - Yazan Hawk ication Management [facility] Clin ic MD Cristobal [address] [place] [address] [address] [place] [phone] (Wo rk) Social History Tobacco Use Types Packs/Day Years Used Date Never Smoker Smokeless Tobacco: Never Used Sex Assigned at Date Recorded Not on file documented as of this encounter Miscellaneous Notes Telephone Encounter - Hamzah Kim RN - 03/07/2020 1708 EDT Notes from this encounter faxed to [facility] Pain clinic as requested. elephone Encounter - Yazan Hawk MD - 03/07/2020 1052 EDT Stopping anticoagulation for a procedure in a patient with AF always increases the risk of a stroke. Usually that risk increase is outweighed by the benefits of the procedure (in this case pain control), but the patient and the line haul owner operator need to understand the trade-off. The guideline recommendation for Eliquis in a high bleeding risk procedure would be at least 48h hold prior to procedure, I usually recommend 72hrs for spinal/ neurosurgical procedures, for extra safety. Restarting depends on the procedure and on the degree of bleeding during the procedure, in this caseI would recommend 48hrs, but the final decision is with the line haul owner operator. elephone Encounter - Megha Shetty RN - 03/01/2020 1449 EDT Onto , is it OK for patient to hodl Eliquis prior to injection? elephone Encounter - Amee Garcia - 03/01/2020 1435 EDT Pt needs to have an injection and the Pain Clinic at [facility] is looking for guidelines/orders written to be faxed to them from Dr. Hawk regarding her eliquis. They need to know if pt can stop five daysprior to injection and when her restart date would be. Fax number is [phone] signed by Amee Garcia at 03/01/2020 14:39 EDTdocumented in this encounter Plan of Treatment Upcoming Encounters Date Type Specialty Care Team Description 01/05/2023 Office Visit Cardiology Yazan Hawk MD [address] [place] [address] [address] [place], [place] [phone] (Wo rk) documented as of this encounter Visit Diagnoses Not on filedocumented in this encounter Care Teams Extruder Operator Relationship Specialty Start Date End Date Uyen Gerard MD PCP - General 02/18/[address] [place] [phone] documented as of this encounter
--- OUTSIDE RECORDS SUMMARY | 2022-03-17 16:42 | XMS_ITS | Encounter Summary ---
:1935 Author Organization [facility] Address [address] [place] [address] Care Team Providers Name Role Phone Uyen Gerard MD Primary Care Provider Reason for Visit Reason Onset Date Comments Other 10/08/2020 Encounter Details Date Type Department Care Team Description 10/08/2020 Telephone [facility] - [facility] Francisca Hawk, Other Cardiology Clinic [address] [place] [address] [address] [place] [phone] (Wo rk) Social History Tobacco Use Types [...] this encounter Miscellaneous Notes Telephone Encounter - Martinez Perry - 10/08/2020 1143 EST Pt called to let Dr. Hawk know that she is tolerating her increase in Metoprolol well. She hasn't had any AFIB episodes since and is feeling much better. She did have a increased heart rate on Saturday to 103BPM but it lasted only seconds. documented in this encounter Plan of Treatment Upcoming Encounters Date Type Specialty Care Team Description 01/05/2023 Office Visit Cardiology Yazan Hawk MD [address] [facility] [address] [place] [phone] (Wo rk) documented as of this encounter Visit Diagnoses Not on filedocumented in this encounter Care Teams Sludge Control Attendant Relationship Specialty Start Date End Date Uyen Gerard MD PCP - General 02/18/[address] [place] [phone] documented as of this encounter
--- OUTSIDE RECORDS SUMMARY | 2022-03-17 16:42 | XMS_ITS | Encounter Summary ---
:1935 Author Organization [facility] Address [address] [place] [address] Care Team Providers Name Role Phone Uyen Gerard MD Primary Care Provider Encounter Details Date Type Department Care Team Description 04/21/2018 Hospital Encounter [facility]- Jennifer Unknown, Provider, [facility] [address] [facility] [phone] [place] [address] (Work) [phone] Social History Tobacco Use Types Packs/Day Years Used Date Never Assessed Sex Assigned at Date Recorded Not on file documented as of this encounter Discharge Disposition Disposition Code Departure Means Destination Home or Self Nursing Home documented in this encounter Plan of Treatment Upcoming Encounters Date Type Specialty Care Team Description 01/05/2023 Office Visit Cardiology Yazan Hawk MD [address] [facility] [address] [place], [place] [phone] (Wo rk) documented as of this encounter Visit Diagnoses Not on filedocumented in this encounter Care Teams Pulpwood Contractor Relationship Specialty Start Date End Date Uyen Gerard MD PCP - General 02/18/[address] [place] [phone] documented as of this encounter
--- OUTSIDE RECORDS SUMMARY | 2022-03-17 16:42 | XMS_ITS | Encounter Summary ---
:1935 Author Organization [facility] Address [address] [place] [address] Care Team Providers Name Role Phone Uyen Gerard MD Primary Care Provider Reason for Visit Reason Comments Follow-up Atrial Fibrillation Other Antiarrhythmic Rx with Fleca inide Encounter Details Date Type Department Care Team Description 08/09/2019 Office Visit [facility] - Yazan Hawk Par oxysmal atrial fibrillation (HCC-CMS) (Primary Dx); [facility] Cardiology MD Cristobal Essential hypertension; Clinic [address] [facility] Mixed hyperlipidemia; [address] [facility] [address] Chronic obstructive pulmonary disease, u nspecified COPD type ([facility]); [place] [address] [place] Chronic renal insufficiency, stage III (moderate) ([facility]); [phone] Sleep apnea, unspecified type Social History Tobacco Use Types Packs/Day Years Used Date Never Smoker Smokeless Tobacco: Never Used Sex Assigned at Date Recorded Not on file documented as of this encounter Last Filed Vital Signs Vital Sign Reading Time Taken Comments Blood Pressure 138/78 08/09/2019 0957 EST Pulse 64 08/09/2019 0957 EST Temperature - - Respiratory Rate - - Oxygen Saturation 95% 08/09/2019 0957 EST Inhaled Oxygen Concentration - - Weight 61.7 kg (136 lb) 08/09/2019 0957 EST Height - - Body Mass Index - - documented in this encounter Patient Instructions Patient InstructionsYazan Hawk MD - 08/09/2019 10:00 EST 1. Continue current medication. 2. Follow blood pressure. 3. Exercise. documented in this encounter Progress Notes Yazan Hawk MD - 08/09/2019 1000 EST [facility] Cardiology Department Subjective: Chief Complaint(s): Follow-up; Atrial Fibrillation ; and Other (Antiarrhythmic Rx with Flecainide) HPI: 84-year-old woman with paroxysmal atrial fibrillation, hypertension, hyperlipidemia, COPD, migraines, history of renal cancer status post right nephrectomy 2004. First episode of AF with RVR 08/2016, received ditiazem with spont. conversion to sinus rhythm during ER evaluation. Started on metoprolol and apixaban. Was hospitalized in November 2018 while in [place], where she had fluttering in her chest and lightheadedness. She had an extensive work-up including head CT and MRI, echocardiogram, EKG, chest x-ray, renal artery Doppler, cardiac catheterization, sleep study and extensive lab testing. Several heart medications were changed/newly started (metoprolol 200 mg, losartan 100 mg, tvqdweamco95 mg, amlodipine 5 mg). By her report, her cardiac cath did not show significant disease. Today in the office, she reports doing well, not bad at all. She and her are about to close their house in [place] and moved to [place] for the winter. She occasionally gets short of breath with vigorous exercise, had only a couple of brief flutters in her chest. She feels that she did notget enough exercise this summer. She feels also that her circulation is not great, with her fingertips often easily getting cold. She is going to see her orthopedic shoes salesperson at [facility] on Thursday. She denies recent chest pain, shortness of breath with ADLs, recent syncope, orthopnea, PND, edema, bleeding, digestive troubles. She has had hypertension since her 50s, she denies a history of [place], diabetes, TIA/CVA, cardiomyopathy, peripheral vascular disease, thyroid disease. Data review: Labs 02/15/2019: Creatinine 1.06, estimated GFR 50. Sleep study 12/2018, [facility]: Mild obstructive sleep apnea. Event monitor ([employer] SEEQ) 10/07/16-11/08/16: Baseline sinus rhythm, daily heart rate average 70-90/min, heart rate spectrum 60-150/, 4 days with documented AF episodes, minutes to a few hours. Echocardiogram, [facility], 09/01/2016: Normal LV size and function, mild LVH, LVEF 65-70%, normal regional wall motion. MAC, moderate focal calcification of the posterior mitral leaflet, mild MR, mildly dilated LA, RV size upper normal limits, low normal RV systolic function, mildly dilated RA, moderate TR, mildly increased PA pressure, 42 mmHg, trivial pericardial effusion. Holter EKG, [facility], 06/2016: Sinus rhythm, rare single PAC, 3 bursts SVT, longest 9 beats, 172/min, noAF. Rare single PVC, no VT. No bradycardia. No symptoms. Average 1 minute heart rate 88/min, range 67-112/min. Chest x-ray, [facility], 08/31/2015: Heart at the upper limits of normal, lungs generally clear, except for some faint reticulonodular densities seen in the right midlung and apex laterally, consistent with radiodensities identified on CT. Chest CT, [facility], 08/30/2016: Market biconvex thoracolumbar scoliosis, scattered multifocal [...] kidney are unremarkable inappearance. Current Outpatient Medications on File Prior to Visit Medication Sig Dispense Refill ??? amLODIPine (NORVASC) 5 mg tablet 1 tab(s) orally once a day ??? apixaban (ELIQUIS) 5 mg tablet orally 2 times a day ??? ascorbic acid, vitamin C, 1,000 mg [...] day ??? flecainide (TAMBOCOR) 50 mg tablet 1 tab(s) orally every 12 hours ??? odunlepjaxr-ndykuwren-ktuqgvoa (TRELEGY ELLIPTA) 100-62.5-25 mcg 1 puff inhaled once a day ??? levalbuterol (XOPENEX) 0.63 mg/3 mL nebulization 3 mL by nebulizer 3 times a day ??? losartan (COZAAR) 50 mg tablet 2 tab orally Daily ??? metoprolol succinate 100 mg capsule,sprinkle,ER 24hr 1.5 tabs orally 100mg AM, 50 mg PM ??? spironolactone (ALDACTONE) 25 mg tablet Take 25 mg by mouth daily. ??? sumatriptan (IMITREX) 25 mg tablet Take 25 mg by mouth as needed for Migraine. No current facility-administered medications on file prior to visit. Past Medical History Paroxysmal atrial fibrillation, dx 08/2016, [id number] score =4, Started on Flecainide in [place], 11/2018 Cardiac cath, [place], [place] 11/2018: No significant coronary disease Hypertension Hyperlipidemia COPD/emphysema History of renal cancer, status post right nephrectomy 2005 Migraines Family History Mother: 94 yrs, atrial fibrillation Paternal Grand Mother: , angina, from [place] in her 70ies Father passed in 1984. [...] learning? No. 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 Allergies codeine: stomach upset: Side Effects Review of Systems GENERAL: - A 10-system ROS was performed. Pertinent items as above. Otherwise negative.. Objective: Examination: Vitals: BP 138/78 (BP Cuff Location: Right arm, BP Patient Position: Sitting, BP Cuff Sizes: Adult, regular) Pulse 64 Wt 61.7 kg (136 lb) SpO2 95% There is no height or weight on file to calculate BMI. Physical Exam General Exam: GENERAL APPEARANCE: no [...] oriented x3, nonfocal, normal speech, gait normal. Labs: No results found for: CHOL, HDL, LDLBASE, TRIG, CHOLHDL No components found for: NONHDL No results found for: BMP No results found for: MG No results found for: HGBA1C No results found for: BNP No components found for: CHEM8 Recent EKG, 07/19/2019: Sinus rhythm with first-degree AV delay, 60/min, AK 226 ms, QRS 102 ms, QT 412 ms, incomplete right bundle branch block and anterior fascicular block. Assessment & Plan: 1. AF (paroxysmal atrial fibrillation) - I48.0 (Primary) 2. Essential hypertension - I10 3. Mixed hyperlipidemia - E78.2 4. Chronic obstructive pulmonary disease, unspecified COPD type - J44.9 5. Sleep apnea in adult - G47.30 6. Chronic kidney disease (CKD), stage III (moderate) - N18.3 84-year-old woman with paroxysmal atrial fibrillation, hypertension, hyperlipidemia, COPD, migraines, history of renal cancer status post right nephrectomy 2004. AF was diagnosed in 08/2016, terminatedspontaneously. Her XCE6GM3-MSVc score is 4, anticoagulation with apixaban/Eliquis is appropriate. Symptomatic recurrence of AF in [place] 11/2018. Cardiac cath was negative, started on flecainide for suppression of PAF. EKG with sinus rhythm and acceptable QRS width. Her blood pressure log shows acceptable measurements in recent months (see scanned documents). She also has follow-up with her orthopedic shoes salesperson next week. Total tjez-ha-xppt time: 25 minutes, >50% spent counseling on above issues. Treatment 1. AF (paroxysmal atrial fibrillation) Continue metoprolol capsule, extended release, 100 mg, 1.5 tabs, orally, 100mg AM, 50 mg PM Continue flecainide tablet, 50 mg, 1 tab(s), [...] mL, by nebulizer, 3 times a day documented in this encounter Plan of Treatment Upcoming Encounters Date Type Specialty Care Team Description 01/05/2023 Office Visit Cardiology Yazan Hawk MD [address] [place] [phone] (Wo ) documented as of this encounter Visit Diagnoses Diagnosis Paroxysmal atrial fibrillation (HCC-CMS) (HCC) - Primary Atrial fibrillation Essential hypertension Unspecified essential hypertension Mixed hyperlipidemia Chronic obstructive pulmonary disease, u nspecified COPD type (HCC-CMS) (HCC) Chronic renal insufficiency, stage III ( moderate) (HCC) Chronic kidney disease, Stage III (moder ate) Sleep apnea, unspecified type documented in this encounter Historical Medications This list may reflect changes made after this encounter. Medication Sig Dispensed Refills Start Date End Date spironolactone Take 25 mg by mouth 0 (ALDACTONE) 25 mg tablet daily. atorvastatin (LIPITOR) 10 1 tab orally at 0 mg tablet bedtime ascorbic acid, vitamin C, 1 tab(s) orally once 0 1,000 mg tablet a day calcium carbonate-vitamin 1 tab(s) orally 2 0 D3 (CALTRATE WITH VITAMIN times a day D3) 600 mg(1,500mg) -800 unit tablet Cod Liver Oil capsule 1 cap(s) orally once 0 a day amLODIPine (NORVASC) 5 mg 1 tab(s) orally once 0 tablet a day dhftjhunazc-egkkjuhds-rom 1 puff inhaled once 0 anter (TRELEGY ELLIPTA) a day 100-62.5-25 mcg losartan (COZAAR) 50 mg 2 tab orally Daily 0 tablet sumatriptan (IMITREX) 25 Take 25 mg by mouth 0 02/09/2022 mg tabletIndications: as needed for UNSURE OF DOSAGE Migraine. cholecalciferol, Vitamin 1 tab(s) orally once 0 02/09/2022 D3, 2,000 unit tablet a day docusate sodium (COLACE 2 cap(s) orally once 0 02/09/2022 CLEAR) 50 mg capsule a day levalbuterol (XOPENEX) 3 mL by nebulizer 3 0 02/09/2022 0.63 mg/3 mL nebulization times a day metoprolol succinate 100 1.5 tabs orally 0 06/08/2020 mg capsule,sprinkle,ER 100mg AM, 50 mg PM 24hr flecainide (TAMBOCOR) 50 1 tab(s) orally 0 03/29/2020 mg tablet every 12 hours apixaban (ELIQUIS) 5 mg orally 2 times a day 0 03/29/2020 tablet added in this encounter Care Teams Vessel Slagman Relationship Specialty Start Date End Date Uyen Gerard MD PCP - General 02/18/[address] [place] [phone] documented as of this encounter
--- OUTSIDE RECORDS SUMMARY | 2022-03-17 16:42 | XMS_ITS | Encounter Summary ---
:1935 Author Organization [facility] Address [address] [place] [address] Care Team Providers Name Role Phone Uyen Gerard MD Primary Care Provider Reason for Visit Reason Onset Date Comments Atrial Fibrillation 08/07/2020 recent episodes of a fib Encounter Details Date Type Department Care Team Description 08/07/2020 Telephone [facility] - Yazan Hawk Atr ial Fibrillation [facility] Cardiology Clin ic MD Cristobal (recent episodes of a [address] fib) [place] [address] [address] [place] [address] (Wo rk) Social History Tobacco [...] this encounter Miscellaneous Notes Telephone Encounter - Yazan Hawk MD - 08/24/20201956 EST Another call attempt with message. JM elephone Encounter - Yazan Hawk MD - 08/24/2020 1342 EST Called and left another message. JM elephone Encounter - Yazan Hawk MD - 08/23/2020 1616 EST Called and left message. JM Telephone Encounter - Megha Shetty RN - 08/23/2020 0915 EST Spoke with patient, she is upset as she has not gotten a call back. She did not have F/U scheduled on 08/08/20 as stated. Patient states that she had F/U on 06/08/20. She decreased metoprolol to 50mg twice daily as instructed D/T C/O fatigue. Since decreasing metoprolol she finds that she has had increased flutters, and also SOB when this occurs. Her pulse has also been elevated with rates in the 90's- low 100's. Patient would like to discuss changes with you. elephone Encounter - Hamzah Kim RN - 08/07/2020 1535 EST Pt has appt 08/08/20. Routing to for FYI. elephone Encounter - Georgiana Austin - 08/07/2020 1331 EST Pt has had more episodes of A-fib. She had one episode on 07/13 which lasted about a minute. Her BP was 166/97. A-Fib on 07/22 with a BP of 146/74, 07/23, and also today. This morning her BP was 135/79. At 1:25pm today, her BP was 124/70. Pt has an appt tomorrow with Dr. Hawk. She is just concerned about the increase in A-Fib. documented in this encounter Plan of Treatment Upcoming Encounters Date Type Specialty Care Team Description 01/05/2023 Office Visit Cardiology Yazan Hawk MD [address] [facility] [address] [place] [phone] (Wo rk) documented as of this encounter Visit Diagnoses Not on filedocumented in this encounter Care Teams Chiller Tender Relationship Specialty Start Date End Date Uyen Gerard MD PCP - General 02/18/[address] [place] [phone] documented as of this encounter
--- OUTSIDE RECORDS SUMMARY | 2022-03-17 16:42 | XMS_ITS | Encounter Summary ---
:1935 Author Organization [facility] Address [address] [place] [address] Care Team Providers Name Role Phone Uyen Gerard MD Primary Care Provider Yazan Hawk MD Unavailable [phone] Reason for Visit Reason Comments Atrial Fibrillation Cardiology (Routine/Next Available) - New Request Specialty Diagnoses / Procedures Referred By Contact Refer red To Contact Diagnoses PAF (paroxysmal atrial fibrillation) ([facility]) ([facility]) Yazan Hawk MD Procedures EKG 12-LEAD [address] [facility] [address] [place] [address] Referral ID Status Reason Start Date Expiration Date Visits V isits Requested Authorized [id number] New Request 02/21/2022 1 1 Encounter Details Date Type Department Care Team Description 02/24/2022 Office Visit [facility] - Yazan Hawk PAF (paroxysmal atrial fibrillation) ([facility]) ([facility]) (Primary Dx); [facility] Cardiology MD Cristobal Essential hypertension; Clinic [address] Mixed hyperlipidemia; [address] [facility] [address] snf current use of antiarrhythmic medical therapy; [place] [address] [place], [place] Current use of nursing home ant icoagulation; [phone] Sleep apnea in adult Social History Tobacco Use Types Packs/Day Years Used Date Never Smoker Smokeless Tobacco: Never Used Sex Assigned at Date Recorded Not on file documented as of this encounter Last Filed Vital Signs Vital Sign Reading Time Taken Comments Blood Pressure 112/58 02/24/2022908 EDT Pulse 66 02/24/2022908 EDT Temperature - - Respiratory Rate - - Oxygen Saturation 99% 02/24/2022908 EDT Inhaled Oxygen Concentration - - Weight 57.7 kg (127 lb 3.2 oz) 02/24/2022908 EDT Height 160 cm (5' 3) 02/24/2022908 EDT Body Mass Index 22.53 02/24/2022908 EDT documented in this encounter Functional Status [...] encounter Progress Notes Yazan Hawk MD - 02/24/2022914 EDT [facility] Cardiology Clinic Note Subjective: Chief Complaint(s): Atrial Fibrillation HPI: 87-year-old woman with paroxysmal atrial fibrillation, hypertension, hyperlipidemia, COPD, migraines, history of renal cancer status post right nephrectomy 2004. First episode of AF with RVR 08/2016, received ditiazem with spont. conversion to sinus rhythm during ER evaluation. Started on metoprolol and apixaban. Was hospitalized 11/2018 in [place], with fluttering in her chest and lightheadedness. Extensive work-up included head CT and MRI, echocardiogram, EKG, chest x-ray, renal artery Doppler, cardiac catheterization, sleep study and extensive lab testing. Several heart medications were changed/newly started (metoprolol 200 mg, losartan 100 mg, [id number] mg, amlodipine 5 mg). By her report, cardiac cath did not show significant disease. Returns to the office with her spouse. She reports being under a lot of stress currently, in part related to her 's recent spine surgery. This has caused weight loss due to decreased appetite. She further reports that she had a bad cold 2 to 3 weeks ago. She presented to urgent care. She was COVID-negative and chest stress x-ray did not show pneumonia. She was started on prednisone and an antibiotic. She states that she was most helped by intensified nebulizer treatment. They had traveled to [place] and [place] with family in December 2021, which went very well from a physical standpoint She denies recent chest pain, shortness of breath with ADLs, recent syncope, orthopnea, PND, edema, bleeding. She has chronic constipation issues. She has had hypertension since her 50s, she denies a history of [place], diabetes, TIA/CVA, cardiomyopathy, peripheral vascular disease, thyroid disease. She gave up on her CPAP machine, as she did not find a way to make the system comfortable. She and her recently received Covid booster and flu shots without problems. Data review: Labs 02/15/2019: Creatinine 1.06, estimated GFR 50. Sleep study 12/2018, [facility]: Mild obstructive sleep apnea, not using CPAP. Event monitor ([employer]) 10/07/16-11/08/16: Baseline sinus rhythm, daily heart rate average 70-90/min, heart rate spectrum 60-150/, 4 days with documented AF episodes, minutes to a few hours. Echocardiogram, [facility], 09/01/2016: Normal LV size and function, mild LVH, LVEF 65-70%, normal regional wall motion. MAC, moderate focal calcification of the posterior mitral leaflet, mild MR, mildly dilated LA, RV size upper normal limits, low normal RV systolic function, mildly dilated RA, moderate TR, mildly increased PA pressure, 42 mmHg, trivial pericardial effusion. Holter EKG, [facility], 06/2016: Sinus rhythm, rare single PAC, 3 bursts SVT, longest 9 beats, 172/min, noAF. Rare single PVC, no VT. No bradycardia. No symptoms. Average 1 minute heart rate 88/min, range 67-112/min. Chest x-ray, [facility], 08/31/2015: Heart at the upper limits of normal, lungs generally clear, except for some faint reticulonodular densities seen in the right midlung and apex laterally, consistent with radiodensities identified on CT. Chest CT, [facility], 08/30/2016: Market biconvex thoracolumbar scoliosis, [...] tablet 1 tab orally at bedtime ??? brimonidine (ALPHAGAN P) 0.1 % ophthalmic solution ??? calcium carbonate-vitamin D3 (CALTRATE WITH VITAMIN D3) 600 mg(1,500mg) -800 unit tablet 1 tab(s) orally 2 times a day ??? cholecalciferol, Vitamin D3, 25 mcg (1,000 unit) tablet Take 1,000 Units by mouth daily. ??? Cod Liver Oil capsule 1 cap(s) orally once a day ??? Docosahexanoic Acid-Eicosapent 120-180 mg capsule Take 1,000 mg by mouth daily. ??? docusate sodium (COLACE) 100 mg capsule Take 100 mg by mouth daily. ??? flecainide (TAMBOCOR) 50 mg tablet TAKE 1 TABLET TWICE A DAY 180 Tablet 3 ??? puuyximzyqv-ftupqbxiv-xzennegv (TRELEGY ELLIPTA) 100-62.5-25 mcg 1 puff inhaled once a day ??? latanoprost (XALATAN) 0.005 % ophthalmic solution ??? levalbuterol (XOPENEX HFA) 45 mcg/actuation inhaler Inhale 1 Puff as directed every 4 to 6 hoursas needed. ??? levalbuterol (XOPENEX) 0.63 mg/3 mL nebulization 3 mL by nebulizer 3 times a day 15 mL 0 ??? losartan (COZAAR) 50 mg tablet 2 tab orally Daily ??? metoprolol SUCCinate (TOPROL-XL) 50 mg tablet CORRECTION: Take 1.5 tabs AM, 1 tab PM.. 225 Tablet 3 ??? predniSONE (DELTASONE) 20 mg tablet Take 2 Tablets by mouth daily. (Patient not taking: Reportedon 02/24/2022) 30 Tablet 0 ??? spironolactone (ALDACTONE) 25 mg tablet Take 25 mg by mouth daily. ??? SUMAtriptan (IMITREX) 50 mg tablet Take 50 mg by mouth. No current facility-administered medications for this visit. Past Medical History Paroxysmal atrial fibrillation, dx 08/2016, [id number] score =4, Started on Flecainide in [place], 11/2018 Cardiac cath, [place], [place] 11/2018: No significant coronary disease Hypertension Hyperlipidemia COPD/emphysema History of renal cancer, status post right nephrectomy 2005 Migraines Family History Mother: 94 yrs, atrial fibrillation Paternal Grand Mother: , angina, from [place] in her 70ies Father passed in 1984. [...] learning? No. 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 Allergies codeine: stomach upset: Side Effects Review of Systems GENERAL: - A 10-system ROS was performed. Pertinent items as above. Otherwise negative.. Objective: Examination: Vitals: BP 112/58 (BP Cuff Location: Right arm, BP Patient Position: Sitting, BP Cuff Sizes: Adult, regular) Pulse 66 Ht 160 cm (63) Wt 57.7 kg (127 lb 3.2 oz) SpO2 99% BMI 22.53 kg/m?? Body mass index is 22.53 kg/m??. Physical Exam General Exam: GENERAL APPEARANCE: [...] Sinus rhythm with first-degree AV delay, 60/min, VT 226 ms, QRS 102 ms, QT 412 ms, incomplete right bundle branch block and L anterior fascicular block. EKG, 06/08/2020: Sinus rhythm with first-degree AV delay and PACs. 71/min, VT 232 ms, QRS 92 ms, QT 398 ms, QTC 432 ms, left anterior fascicular block. EKG 08/12/2021: Sinus bradycardia with sinus arrhythmia and first-degree AV delay, 59/min, VT 244 ms,QRS 88 ms, QT 404 ms, left anterior fascicular block. EKG 02/24/2022: Sinus rhythm with first-degree AV delay, 78/min, VT 248 ms, QRS 76 ms, QT 392 ms, [id number] ms, left anterior fascicular block. Recent labs, [facility], 02/14/2022: Glucose 94, BUN 29, creatinine 0.98, sodium 127, potassium 4.8, chloride 89, CO2 30, anion gap 8, calcium 9.6, GFR 53, urine sodium 41 Assessment & Plan: 1. PAF (paroxysmal atrial fibrillation) ([facility]) ([facility]) EKG 12-LEAD 2. Essential hypertension 3. Mixed hyperlipidemia 4. 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 Current use of nursing home anticoagulation 6. Sleep apnea in adult 86-year-old woman with paroxysmal atrial fibrillation, hypertension, hyperlipidemia, COPD, migraines, history of renal cancer status post right nephrectomy 2004. AF was diagnosed in 08/2016, terminatedspontaneously. Her [id number] score is 4, anticoagulation with apixaban/Eliquis is appropriate. Symptomatic recurrence of AF in [place] 11/2018. Cardiac cath was negative, started on flecainide for suppression of PAF. EKG today again with sinus rhythm and acceptable, stable QRS width. Recent labs with stable kidney function. Her blood pressure shows acceptable measurements in recent months with Metoprolol 75&50mg/d. Continue current meds. She recently had a URI, treated with prednisone and antibiotics now slowly improving. Also had some stress related weight loss, now starting to gain weight again. Encouraged her to increase regular exercise.. Yazan Hawk MD documented in this encounter Plan of Treatment Upcoming Encounters Date Type Specialty Care Team Description 01/05/2023 Office Visit Cardiology Yazan Hawk MD [address] [facility] [address] [place] [address] (Wo rk) documented as of this encounter Procedures Procedure Name Priority Date/Time Associated Diagnosis Comme nts ECG REPORT - 02/24/2022 11:27 SCANNED EDT EKG 12-LEAD Routine 02/24/2022 9:18 EDT PAF (paroxysmal Resul ts for this atrial fibrillation) procedu re are in ([facility]) ([facility]) the results section. documented in this encounter Results EKG 12-LEAD (02/24/2022 9:18 EDT) Specimen Narrative [facility] - 11:24 EDT ? CVC ? Test Date: ?2022-02-24 Pat Name: ? TALITA VELASCO ?Department: ? Room: ? Gender: ? Female ? Global Implementation Manager: ?? [place] : ?1935 ? Requested By: ROSIBEL SPRINGER Order Number: [id number] ? Reading MD: ?? AGAPITO XAVIER MD ? Measurements Intervals ?[place] ? Rate: ? 78 ? P: ? VT: ? 248 ?QRS: ?-44 QRSD: ? 76 [...] Procedure Note Agapito Xavier MD - 02/24/2022 CVC Test Date: 2022-02-24 Pat Name: TALITA VELASCO Department: Room: Gender: Female Global Implementation Manager: [place] : 1935 Requested By: ROSIBEL SPRINGER Order Number: [id number] Reading MD: Kobe XAVIER MD Measurements Intervals [place] Rate: 78 P: [place]: 248 QRS: -44 QRSD: 76 T: 32 QT: 392 QTc: 446 Interpretive Statements Sinusrhythm 1st degree AV block Left anterior fascicular block Compared to ECG 08/12/2021 10:11:02 No significant changes I reviewed the tracing and have either a greed or edited the findings in this report. Electronically Signed On 02-25-20 11:24:49 EDT by AGAPITO XAVIER MD. 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
--- OUTSIDE RECORDS SUMMARY | 2022-03-17 16:42 | XMS_ITS | Encounter Summary ---
:1935 Author Organization [facility] Address [address] [place] [address] Care Team Providers Name Role Phone Uyen Gerard MD Primary Care Provider Yazan Hawk MD Unavailable [phone] Reason for Visit Reason Comments Cough cold symptoms,raising phlegm Encounter Details Date Type Department Care Team Description 02/09/2022 Office Visit [facility] Acute Respiratory Geraldine Welch Cough in adult Clinic OTTO Baird (Primary Dx) [id number] [place] [address] [address] [phone] [place] [address] Social History Tobacco Use Types Packs/Day Years Used Date Never Smoker Smokeless Tobacco: Never Used Sex Assigned at Date Recorded Not on file documented as of this encounter Last Filed Vital Signs Vital Sign Reading Time Taken Comments Blood Pressure 104/60 02/09/2022 1508 EDT Pulse 75 02/09/2022 1420 EDT Temperature 36.6 ??C (97.8 ??F) 02/09/2022 1420 EDT Respiratory Rate 18 02/09/2022 1420 EDT Oxygen Saturation 95% 02/09/2022 1420 EDT Inhaled Oxygen Concentration - - Weight - - Height - - Body Mass Index - - documented in this encounter Functional Status Functional [...] making decisions? documented as of this encounter Patient Instructions Patient InstructionsGeraldine Welch PA-C - 02/09/2022 13:00 EDT Your COVID testing is pending. Stay home until results return. Start your rescue inhaler as needed every 4-6 hours. There is question of a left lower lungpneumonia on your chest XRAY, I will let you know what the radiologist shows. Start the doxycyline and the prednisone and take the full course. Monitor your O2 at home. Setup a follow up visit with PRIMARY CARE PROVIDER for further eval to ensure improving. If you develop significant difficulty breathing present to ED for further immediate evaluation. documented in this encounter Ordered Prescriptions Prescription Sig Dispensed Refills Start Date End Date levalbuterol (XOPENEX) 3 mL by nebulizer 3 15 mL 0 /0 01/2022 0.63 mg/3 mL times a day nebulizationIndications: Cough in adult predniSONE (DELTASONE) Take 2 Tablets by 30 Tablet 0 2021 20 mg tablet mouth daily. doxycycline (VIBRA-TABS) Take 1 Tablet by 10 Tablet 0 02/0902/14/2022 100 mg tablet mouth 2 times daily for 5 days. documented in this encounter Progress Notes Geraldine Welch PA-C - 02/09/2022 1300 EDT [facility] Chief Complaint(s): Chief Complaint Patient presents with ??? Cough cold symptoms,raising phlegm Assessment & Plan: Jerri was seen today for cough. Diagnoses and all orders for this visit: Cough in adult - XR CHEST 2 VIEWS - COVID-19 TESTING - levalbuterol (XOPENEX) 0.63 mg/3 mL nebulization; 3 mL by nebulizer 3 times a day - COVID-19 [facility] (TESTING ONLY) Other orders - doxycycline (VIBRA-TABS) 100 mg tablet; Take 1 Tablet by mouth 2 times daily for 5 days. - predniSONE (DELTASONE) 20 mg tablet; Take 2 Tablets by mouth daily. Jerri Velasco is a 87 y.o. female with significant history of COPD who presents for evaluation of cough with increased sputum production that began on 02/04/2022. Patient reports feeling rundown and has rhinorrhea and dyspnea with exertion but denies fever, chills, sore throat, GI symptoms, weakness,lower extremity edema, shortness of breath at rest or orthopnea. Patient is generally well appearing, afebrile, non toxic, well hydrated, stable on exam, lung soundsare notable for wheezing throughout along with crackles appreciated in the left lower lobe. DDx include: COPD exacerbation versus pneumonia versus viral URI versus COVID infection COVID testing obtained during visit and instructed to remain home away from Others unless to seek medical attention until results return. Chest x-ray performed and my interpretation included possible small consolidation in the left lower lobe and patient was discharged with prednisone and doxycycline to cover for possible CAP and COPD exacerbation. discussed that I will call patient to notify her of radiologist read once it's returned. I nstructed to hold her calcium supplement during course of doxy. Instructed patient to restart her rescue inhalers and neb therapies but cautioned that neb should be done on her porch to avoid aerosols inside her home while covid testing is pending. Should additionally use decongestant mucinex and nasal spray, increase fluids, rest and monitor her O2 daily. Instructed if O2 sat drops below 93% should seek further evaluation, if 90% or lower needs emergent eval. Instructed she needs follow up with herPRIMARY CARE PROVIDER in 1 week to ensure improvement in symptoms. The independent visualization of x-ray imaging are discussed with patient. I printed material and reviewed home management and follow up in detail with patient, see patient instructions below. Patient is advised in use of MyColorScreen to access any lab results or other pertinent visit information. All questions are answered. Patient is advised to follow up for urgent reassessment for any new/worsening signs and symptoms, otherwise, follow up with PCP or at [facility] for symptoms that persist past current course of treatment or expected resolution as discussed. We did discuss the option of Zoom visits with primary care provider or with [facility] for follow up that is non-urgent. Patient verbalizes understanding and agreement with this plan of care. HPI: Jerri Velasco is a 87 y.o. female with history of COPD, paroxysmal A. fib, chronic renal insufficiency and hypertension who is here with chief complaint of coughing and increased sputum production along with congestion and increased fatigue. Patient's daughter is present for the evaluation today andnotes patient does seem to be more short of breath with exertion such as going up a flight of stairs. Symptoms started on 02/04/2022 after going to [place] 2 days prior. Patient is COVID vaccinated with 1booster in the fall 2020. Home covid rapid test was negative on 02/07/2022. Denies known sick contact. Has been using the trelogy but has not used her rescue inhaler or nebulizer. Reports her highest temp was 99.9 which was few days ago. Cough is worse at night but denies wheezing. Denies history of hospitalization for COPD or recent COPD exacerbations. Patient denies: Fever, chills, nausea, vomiting, diarrhea, weakness, headache, orthopnea, lower extremity edema, blood in sputum. Social History Tobacco Use Smoking Status Never Smoker Smokeless Tobacco Never Used I have reviewed current problem list, current medications and allergies. ROS: Review of Systems Constitutional: Positive for malaise/fatigue. Negative for chills, diaphoresis, fever and weight loss. HENT: Positive for congestion and hearing loss. Negative for ear discharge, ear pain, sinus pain andsore throat. Respiratory: Positive for cough, sputum production and shortness of breath (with exertion). Negativefor hemoptysis, wheezing and stridor. Cardiovascular: Negative for chest pain, palpitations, orthopnea and leg swelling. Gastrointestinal: Negative for diarrhea, nausea and vomiting. Musculoskeletal: Negative for myalgias. Skin: Negative for itching and rash. Neurological: Negative for weakness and headaches. See HPI for details Objective: Vitals and nursing notes reviewed Examination: BP 104/60 Pulse 75 Temp 36.6 ??C (97.8 ??F) (Oral) Resp 18 SpO2 95% Physical Exam Constitutional: General: She is not in acute distress. Appearance: She is not ill-appearing, toxic-appearing or diaphoretic. HENT: Right Ear: No drainage, swelling or tenderness. A middle ear effusion is present. No mastoid tenderness. Tympanic membrane is not injected, erythematous or bulging. Left Ear: No drainage, swelling or tenderness. A middle ear effusion is present. No mastoid tenderness. Tympanic membrane is not injected or bulging. Nose: Rhinorrhea present. Mouth/Throat: Mouth: Mucous membranes are moist. Pharynx: Oropharynx is clear. Cardiovascular: Rate and Rhythm: Normal rate and regular rhythm. Pulmonary: Breath sounds: No stridor. Examination of the left-lower field reveals rales. Wheezing (throughout ) and rales present. No decreased breath sounds. Musculoskeletal: Right lower leg: No edema. Left lower leg: No edema. Lymphadenopathy: Cervical: No cervical adenopathy. Skin: General: Skin is warm and dry. Neurological: Mental Status: She is alert. Psychiatric: Mood and Affect: Mood normal. Behavior: Behavior normal. This note may be in part documented using [employer] software. Please forgive any errors, omissions or typos that may result from use of dictation. Marie finn LPN - 02/09/2022 1300 EDT CC/HPI: Covid Screening: In the last 72 hours, has the patient had: New or unusual cough, shortness of breath, new nasal congestion, sore throat, fever, chills, body aches, or new loss of taste or smell without a reasonable alternative diagnosis*? (If yes, assign to [facility]) cough,nasal congestion,slight fever 99.9 off and on In the past 10 days, has the patient had a positive Covid test OR a confirmed close Covid exposure (<6ft for > 15mins in 24hr period)? (if yes, assign to [facility], regardless of vaccination status) no Is the patient fully Covid vaccinated? Yes-plus booster Approximate date of last dose? 07/03/21 per pt *may be determined by RN or in discussion with available provider (HRIS ADMINISTRATOR's and CCA's can defer to Charge Nurse to complete triage when appropriate) PCP: Uyen Gerard documented in this encounter Plan of Treatment Upcoming Encounters Date Type Specialty Care Team Description 01/05/2023 Office Visit Cardiology Yazan Hawk MD [address] [facility] [address] [place] [address] (Wo rk) documented as of this encounter Procedures Procedure Name Priority Date/Time Associated Diagnosis Comme nts COVID-19 CV Today 02/09/2022 16:03 Cough in adult (TESTING ONLY) EDT COVID-19 TESTING Routine 02/09/2022 16:03 Cough in adult Resul ts for this EDT procedure are i n the results section. XR CHEST 2 VIEWS STAT 02/09/2022 15:09 Cough in adult Resul ts for this EDT procedure are i n the results section. documented in this encounter Results COVID-19 [facility] (TESTING ONLY) (02/09/2022 16:03 EDT) Specimen Swab - Entire nasopharynx (body structur e) Performing Organization Address City/[facility]/ZIP Code Phon e Number [facility] [address] [place] [address] COVID-19 TESTING (02/09/2022 16:03 EDT) COVID-19 rt-PCR Negative Negative [facility] Result [facility] Performing Lab Diasorin Liaison [facility] Specimen Swab - Entire nasopharynx (body structur e) Performing Organization Address City/[facility]/ZIP Code Phon e Number [facility] [address] [place] [address] XR CHEST 2 VIEWS (02/09/2022 15:09 EDT) Anatomical Region Laterality Modality Computed Radiography Specimen Impressions [facility] - 02/09/2022 15:51 EDT Findings suggestive of COPD, pleural thickening. No lobar consolidation or CHF. THIS DOCUMENT HAS BEEN ELECTRONICALLY SI GNED BY ELIZABETH HASTINGS MD FOR ANY QUESTIONS OR CONCERNS REGARDING THIS REPORT PLEASE CALL [facility] AT [phone] Narrative [facility] - 02/09/2022 15:51 EDT PROCEDURE INFORMATION: Exam: XR Chest Exam date and time: 02/09/2022 3:05 PM Age: 87 years old Clinical indication: Cough, unspecified; Chest wall pain; Additional info: Worsening cough and fatigue since 02/04/2022 with history copd TECHNIQUE: Imaging protocol: XR of the chest. Views: 2 views. COMPARISON: No relevant prior studies available. FINDINGS: Lungs: Lung volumes are increased sugges tive of COPD. No significant airspace consolidation or overt CHF Pleural spaces: Minimal pleural thickeni ng at the lung apices. Large pleural effusion, or pneumothorax is not seen Heart/Mediastinum: Heart is upper limits of normal in size. No significant mediastinal abnormality Bones/joints: Bony structures are osteop enic. There is scoliosis convex to the right. Degenerative change s are seen in the spine. There is no acute bony abnormality Procedure Note Elizabeth Hastings MD - 02/09/2022 PROCEDURE INFORMATION: Exam: XR Chest Exam date and time: 02/09/2022 3:05 PM Age: 87 years old Clinical indication: Cough, unspecified; Chest wall pain; Additional info: Worsening cough and fatigue since 02/04/2022 with history copd TECHNIQUE: Imaging protocol: XR of the chest. Views: 2 views. COMPARISON: No relevant prior studies available. FINDINGS: Lungs: Lung volumes are increased sugges tive of COPD. No significant airspace consolidation or overt CHF Pleural spaces: Minimal pleural thickeni ng at the lung apices. Large pleural effusion, or pneumothorax is not seen Heart/Mediastinum: Heart is upper limits of normal in size. No significant mediastinal abnormality Bones/joints: Bony structures are osteop enic. There is scoliosis convex to the right. Degenerative change s are seen in the spine. There is no acute bony abnormality IMPRESSION Findings suggestive of COPD, pleural thi ckening. No lobar consolidation or CHF. THIS DOCUMENT HAS BEEN ELECTRONICALLY SI GNED BY ELIZABETH HASTINGS MD FOR ANY QUESTIONS OR CONCERNS REGARDING THIS REPORT PLEASE CALL [facility] AT [phone] Performing Organization Address City/State/ZIP Code Phon e Number [facility] documented in this encounter Visit Diagnoses Diagnosis Cough in adult - Primary documented in this encounter Discontinued Medications Medication Sig Discontinue Reason Start Date End Date sumatriptan (IMITREX) 25 Take 25 mg by mouth 02/09/2022 mg tabletIndications: as needed for UNSURE OF DOSAGE Migraine. docusate sodium (COLACE 2 cap(s) orally once 02/09/2022 CLEAR) 50 mg capsule a day cholecalciferol, Vitamin 1 tab(s) orally once 02/09/2022 D3, 2,000 unit tablet a day levalbuterol (XOPENEX) 3 mL by nebulizer 3 Reorder 02/09/2022 0.63 mg/3 mL times a day nebulization documented as of this encounter Historical Medications This list may reflect changes made after this encounter. Medication Sig Dispensed Refills Start Date End Date Docosahexanoic Take 1,000 mg by 0 Acid-Eicosapent 120-180 mg mouth daily. capsule brimonidine (ALPHAGAN P) 0 11/26/2021 0.1 % ophthalmic solution latanoprost (XALATAN) 0.005 0 08/21/20 21 % ophthalmic solution levalbuterol (XOPENEX HFA) Inhale 1 Puff as 0 45 mcg/actuation inhaler directed every 4 to 6 hours as needed. cholecalciferol, Vitamin Take 1,000 Units by 0 D3, 25 mcg (1,000 unit) mouth daily. tablet docusate sodium (COLACE) Take 100 mg by mouth 0 100 mg capsule daily. SUMAtriptan (IMITREX) 50 mg Take 50 mg by mouth. 0 tablet added in this encounter Care Teams Rig Site Engineer Relationship Specialty Start Date End Date Uyen Gerard MD PCP - General 02/18/[address] [phone] Yazan Hawk MD Cardiovascular Disease 08/12/21 130 [facility] [address] [place] [phone] documented as of this encounter
--- OUTSIDE RECORDS SUMMARY | 2022-03-17 16:42 | XMS_ITS | Encounter Summary ---
:1935 Author Organization [facility] Address [address] [place] [address] Care Team Providers Name Role Phone Uyen Gerard MD Primary Care Provider Yazan Hawk MD Unavailable [phone] Reason for Visit Reason Comments Other Encounter Details Date Type Department Care Team Description 10/02/2020 Refill [facility] Yazan Fam MD Other Cardiology Clinic [address] [place] [address] [place] [address] (Wo rk) Social History Tobacco [...] (TAMBOCOR) 50 TAKE 1 TABLET TWICE 180 Tab 3 09/27/2021 mg tablet A DAY documented in this encounter Plan of Treatment Upcoming Encounters Date Type Specialty Care Team Description 01/05/2023 Office Visit Cardiology Yazan Hawk MD [address] [facility] [address] [place] [address] (Wo rk) documented as of this encounter Visit Diagnoses Not on filedocumented in this encounter Discontinued Medications Medication Sig Discontinue Reason Start Date End Date flecainide (TAMBOCOR) 50 Take 1 Tab by mouth 0 10/02/2020 mg tablet 2 times daily. documented as of this encounter Care Teams Animal Herder Relationship Specialty Start Date End Date Uyen Gerard MD PCP - General 02/18/[address] [place] [phone] Yazan Hawk MD Cardiovascular Disease 08/12/21 [address] [facility] [address] [place] [address] documented as of this encounter
--- OUTSIDE RECORDS SUMMARY | 2022-03-17 16:42 | XMS_ITS | Encounter Summary ---
:1935 Author Organization [facility] Address [address] [place] [address] Care Team Providers Name Role Phone Unknown, Provider Primary Care Provider Encounter Details Date Type Department Care Team Description 02/15/2018 Results Only [facility]- Harry Guzman MD [phone] [place], [place] [address] [place] [address] (Wo rk) Social History Tobacco Use Types Packs/Day Years Used Date Never Assessed Sex Assigned at Date Recorded Not on file documented as of this encounter Plan of Treatment Upcoming Encounters Date Type Specialty Care Team Description 01/05/2023 Office Visit Cardiology Yazan Hawk MD [address] [facility] [address] [place], [place] [phone] (Wo rk) documented as of this encounter Procedures Procedure Name Priority Date/Time Associated Diagnosis Comme nts CYTOPATHOLOGY Routine 02/15/2018 0:00 EDT Results for this procedure are i n the results section . documented in this encounter Results CYTOPATHOLOGY (02/15/2018 0:00 EDT) Pathology Report: CYTOPATHOLOGY REPORT [facility] Reports generated via electronic interface contain kareem ginal data; SERVICES however they are lacking the format of the original re port. Caution should be taken when reading/interpreting unfo rmatted reports. Name: ? TALITA VELASCO ? Accession #: ? [id number] : ? 1935 (Age: 10 1) ??F ?Collect Date: ? 02/15 Location: ? [facility] ? Receive Date : ? 02/17/2018 Provider: ? HARRY IBRAHIM MD Copy to: ?PAM ZAMORA MD ? CYTOLOGIC DIAGNOSIS: URINE, NOS: - ?Negative for malignancy. - ?Benign and reactive urothelial cells, scattered acute ? and chronic inflammatory cells, severa l bacterial colonies, ? and amorphous proteinaceous debris. Document reviewed and electronically signed by: ? JESSICA DUMONT MD Report Date: ??02/17/2018 16:50 By the signature above, the attending physician certif ies that he/she has personally conducted a gross and/or microscopic examin ation of the described specimens and rendered or confirmed the above diagnosi s. Specimen Type: ? Urine, NOS Clinical History: ? 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 ? Gross Description: ? 60ccs of clear yellow fluid, of which 30ccs are compos ed of fixative, were received and processed by selective cellular enhanceme nt technique. ? . ? End of Report Specimen Performing Organization Address City/State/ZIP Code Phon e Number [facility] [address] [place] [address] SERVICES documented in this encounter Visit Diagnoses Not on filedocumented in this encounter Care Teams Pile Driving Superintendent Relationship Specialty Start Date End Date Unknown, Provider, PCP - General 09/02/16 02/17/18 documented as of this encounter
--- OUTSIDE RECORDS SUMMARY | 2022-03-17 16:42 | XMS_ITS | Clinical Summary ---
:1935 Author Organization [facility] Address [address] [place] [address] Care Team Providers Name Role Phone Ueyn Gerard MD Primary Care Provider Yazan Hawk MD Unavailable [phone] Allergies Active Allergy Reactions Severity Noted Date Comments Codeine Other (See Comments) 03/07/2019 Medications Medication Sig Dispensed Refills Start Date End Date Status losartan (COZAAR) 50 mg 2 tab orally 0 Active tablet Daily gjenrnvxxod-dtbghacfy-q 1 puff inhaled 0 Active ilanter (TRELEGY once a day ELLIPTA) 100-62.5-25 mcg amLODIPine (NORVASC) 5 1 tab(s) orally 0 Active mg tablet once a day Cod Liver Oil capsule 1 cap(s) orally 0 Active once a day calcium 1 tab(s) orally 0 Acti ve carbonate-vitamin D3 2 times a day (CALTRATE WITH VITAMIN D3) 600 mg(1,500mg) -800 unit tablet ascorbic acid, vitamin 1 tab(s) orally 0 Active C, 1,000 mg tablet once a day atorvastatin (LIPITOR) 1 tab orally at 0 Active 10 mg tablet bedtime spironolactone Take 25 mg by 0 A ctive (ALDACTONE) 25 mg mouth daily. tablet apixaban (ELIQUIS) 5 mg Take 1 Tab by 180 Tab 1 03/29/2020 Active tablet mouth 2 times daily. flecainide (TAMBOCOR) TAKE 1 TABLET 180 Tablet 3 09/27/2021 Active 50 mg tablet TWICE A DAY SUMAtriptan (IMITREX) Take 50 mg by 0 Active 50 mg tablet mouth. docusate sodium Take 100 mg by 0 Active (COLACE) 100 mg capsule mouth daily. cholecalciferol, Take 1,000 Units 0 Active Vitamin D3, 25 mcg by mouth daily. (1,000 unit) tablet levalbuterol (XOPENEX Inhale 1 Puff as 0 Active HFA) 45 mcg/actuation directed every 4 inhaler to 6 hours as needed. latanoprost (XALATAN) 0 08/21/2021 Active 0.005 % ophthalmic solution brimonidine (ALPHAGAN 0 11/26/2021 Active P) 0.1 % ophthalmic solution Docosahexanoic Take 1,000 mg by 0 Active Acid-Eicosapent 120-180 mouth daily. mg capsule predniSONE (DELTASONE) Take 2 Tablets 30 Tablet 0 02/09/2022 Active 20 mg tablet by mouth daily. Additional Information Patient not taking. Reported on 02/24/2022 levalbuterol (XOPENEX) 0.63 mg/3 3 mL by nebulizer 15 mL 0 02/09/2022 Active mL nebulizationIndications: Cough 3 times a day in adult metoprolol SUCCinate (TOPROL-XL) CORRECTION: Take 225 Tablet 3 02/14/2022 Active 50 mg tablet 1.5 tabs AM, 1 tab PM.. 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 08/18/2021 Venous insufficiency 06/08/2020 Paroxysmal atrial fibrillation ([facility]) 08/08/2019 Chronic obstructive pulmonary disease ([facility]) 2018 Essential hypertension 08/08/2019 Mixed hyperlipidemia 08/08/2019 Sleep apnea in adult 08/08/2019 Chronic renal insufficiency, stage III (moderate) 10/2018 Encounters Date Type Specialty Care Team Description 02/24/2022 Office Visit Cardiology Yazan Hawk PAF (paroxy smal atrial fibrillation) ([facility]) ([facility]) (Primary Dx); MD Cristobal Essential hyper tension; Mixed hyperlipi demia; 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 nt use of antiarrhythmic medical therapy; Current use of custodial anticoagulation; Sleep apnea in adult 02/21/2022 Orders Only Cardiology Yazan Hawk PAF (paroxy smal atrial MD Cristobal fibrillation) ( [facility]) ([facility]) (Primary Dx) 02/14/2022 Refill Cardiology Yazan Hawk MD 02/09/2022 Office Visit Urgent Care Geraldine Welch Cough in adult (Primary Dx) OTTO Baird 02/09/2022 Telephone Urgent Care Geraldine Weclh Diagnostic Imag ing Report OTTO Baird from Last 3 Months Social History Tobacco Use Types Packs/Day Years Used Date Never Smoker Smokeless Tobacco: Never Used Sex Assigned at Date Recorded Not on file Last Filed Vital Signs Vital Sign Reading Time Taken Comments Blood Pressure 112/58 02/24/2022 0909 EDT Pulse 66 02/24/2022 0909 EDT Temperature 36.6 ??C (97.8 ??F) 02/09/2022 1420 EDT Respiratory Rate 18 02/09/2022 1420 EDT Oxygen Saturation 99% 02/24/2022 0909 EDT Inhaled Oxygen Concentration - - Weight 57.7 kg (127 lb 3.2 oz) 02/24/2022 0909 EDT Height 160 cm (5' 3) 02/24/2022 0909 EDT Body Mass Index 22.53 02/24/2022 0909 EDT Plan of Treatment Upcoming Encounters Date Type Specialty Care Team Description 01/05/2023 Office Visit Cardiology Yazan Hawk MD [address] [place] [address] [phone] (Wo rk) Health Maintenance Due Date Last Done Comments Copd Action Plan 1935 Lung Function Test (Spirometry) 1935 COVID-19 Vaccine (#1) 1942 Fall Risk Screening 02/24/2023 02/24/2022, 06/08/2020 Procedures Procedure Name Priority Date/Time Associated Diagnosis Comme nts ECG REPORT - 02/24/2022 11:27 SCANNED EDT EKG 12-LEAD Routine 02/24/2022 9:18 EDT PAF (paroxysmal Resul ts for this atrial fibrillation) procedu re are in ([facility]) ([facility]) the results section. COVID-19 [facility] Today 02/09/2022 16:03 Cough in adult (TESTING ONLY) EDT COVID-19 TESTING Routine 02/09/2022 16:03 Cough in adult Resul ts for this EDT procedure are i n the results section. XR CHEST 2 VIEWS STAT 02/09/2022 15:09 Cough in adult Resul ts for this EDT procedure are i n the results section. from Last 3 Months Results ECG REPORT - SCANNED (02/24/2022 11:27 EDT) Specimen Narrative This result has an attachment that is no t available. EKG 12-LEAD (02/24/2022 9:18 EDT) Specimen Narrative [facility] - 11:24 EDT ? CVC ? Test Date: ?2022-02-24 Pat Name: ? TALITA VELASCO ?Department: ? Room: ? Gender: ? Female ? 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 [place] : ?1935 ? Requested By: ROSIBEL SPRINGER Order Number: [id number] ? Benton CAMARA: ?? AGAPITO XAVIER MD ? Measurements Intervals ?Addison ? Rate: ? 78 ? P: ? RI: ? 248 ?QRS: ?-44 QRSD: ? 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 Electronically Signed On 02-25-20 11:24:49 EDT by AGAPITO XAVIER MD. Performing Organization Address City/[facility]/ZIP Code Phon e Number [facility] COVID-19 [facility] (TESTING ONLY) (02/09/2022 16:03 EDT) Specimen Swab - Entire nasopharynx (body structur e) Performing Organization Address City/[facility] Phon e Number [facility] [address] [place] [address] COVID-19 TESTING (02/09/2022 16:03 EDT) COVID-19 rt-PCR Negative Negative [facility] Result [facility] Performing Lab Diasorin Liaison [facility] Specimen Swab - Entire nasopharynx (body structur e) Performing Organization Address [facility] Phon e Number [facility] [address] [place] [address] XR CHEST 2 VIEWS (02/09/2022 15:09 EDT) Anatomical Region Laterality Modality Computed Radiography Specimen Impressions [facility] - 02/09/2022 15:51 EDT Findings suggestive of COPD, pleural thickening. No lobar consolidation or CHF. THIS DOCUMENT HAS BEEN ELECTRONICALLY SI GNED BY ELIZABETH HIGGINS MD FOR ANY QUESTIONS OR CONCERNS REGARDING THIS REPORT PLEASE CALL [facility] AT [phone] Narrative [facility] - 02/09/2022 15:51 EDT [...] no acute bony abnormality Procedure Note Elizabeth Higgins MD - 02/09/2022 PROCEDURE INFORMATION: Exam: XR [...] HAS BEEN ELECTRONICALLY SI GNED BY ELIZABETH HIGGINS MD FOR ANY QUESTIONS OR CONCERNS REGARDING THIS REPORT PLEASE CALL [facility] AT [phone] Performing Organization Address City/State/ZIP Code Phon e Number [facility] from Last 3 Months Insurance Payer Benefit Plan / Subscriber ID Effective Dates Phone Addre ss Type Group MEDICARE MEDICARE A/B [id number] 2002-Present [id number] [place] [id number] Talita Velasco Personal/Family Self 1935 [address] [place], [place] [address] Talita Velasco Personal/Family Self 1935 [address] [place] [address] Talita Velasco Personal/Family Self 1935 [address] [place] [address] Talita Velasco Personal/Family Self 1935 [address] [place] [address] Talita Velasco Personal/Family Self 1935 [address] [place] [address] Talita Velasco Personal/Family Self 1935 [address] [place] [address] Talita Velasco Personal/Family Self 1935 [address] [place] [address] Care Teams Tool Planer Set Up Operator Relationship Specialty Start Date End Date Uyen Gerard MD PCP - General 02/18/[address] [phone] Yazan Hawk MD Cardiovascular Disease 08/12/21 130 [facility] [address] [place] [address]
--- OUTSIDE RECORDS SUMMARY | 2022-03-17 16:42 | XMS_ITS | Encounter Summary ---
:1935 Author Organization [facility] Address [address] [place] [address] Care Team Providers Name Role Phone Uyen Gerard MD Primary Care Provider Yazan Hawk MD Unavailable [phone] Reason for Visit Reason Comments Other Encounter Details Date Type Department Care Team Description 02/14/2022 Refill [facility] Yazan Fam MD Other Cardiology Clinic [address] [facility] [address] [place] [address] [place] [address] (Wo rk) Social History Tobacco [...] Refills Start Date End Date metoprolol SUCCinate CORRECTION: Take 225 Tablet 3 2 (TOPROL-XL) 50 mg tablet 1.5 tabs AM, 1 tab PM.. documented in this encounter Plan of Treatment Upcoming Encounters Date Type Specialty Care Team Description 01/05/2023 Office Visit Cardiology Yazan Hawk MD [address] [facility] [address] [place] [address] (Wo rk) documented as of this encounter Visit Diagnoses Not on filedocumented in this encounter Discontinued Medications Medication Sig Discontinue Reason Start Date End Date metoprolol SUCCinate Take 2 Tabs by mouth 02/08/2021 02/14/2022 (TOPROL-XL) 50 mg tablet every morning AND 1 Tab every evening. CORRECTION: Take 1.5 tabs AM, 1 tab PM.. documented as of this encounter Care Teams Floor Nurse Relationship Specialty Start Date End Date Uyen Gerard MD PCP - General 02/18/[address] [place] [phone] Yazan Hawk MD Cardiovascular Disease 08/12/[address] [place] [address] [address] [place] [address] documented as of this encounter
== END 2022-03-17 16:36 | disposition home or self-care (01) ==
LOC: LBO 16:37
PROVIDERS: PCP Family Medicine; Visit Provider Internal Medicine Nephrology
DX: E87.1 Hypo-osmolality and hyponatremia (principal)
CPT/HCPCS: 36415; 80048

== ENCOUNTER → 2022-04-01 02:52 | Outpatient (CLI) | payer MEDICARE, OTHER, SELFPAY ==
--- NOTE | 2022-04-01 14:09 | DI.CT_ITS ---
Exam(s) CT CHEST WO EXAM: CT CHEST WO CLINICAL HISTORY: PULMONARY NODULE, R91.1. TECHNIQUE: Imaging protocol: Axial computed tomography images were obtained and coronal and sagittal reformatted images were created and reviewed. FINDINGS: Tracheobronchial tree: Bronchiectatic changes are seen in the right upper lobe, the right middle lobe and lingula. Pulmonary parenchyma: The pleural based right lower lobe pulmonary nodule measures 2.0 x 1.0 cm. This is unchanged compared to the prior examination. The nodule seen along the pleural surface in the lef t lower lobe has slightly decreased in size. It measures 1.2 x 0.3 cm compared with 1.7 x 0.7 cm. No architectural distortion. There has been no change in the nodular infiltrates in the lungs. No new in filtrates are seen. Mediastinum and Rosemary: No dominant adenopathy or fluid collection. The esophagus is unremarkable. Thyroid gland: Unremarkable. Pleura: No effusion or pneumothorax. Heart: The heart is not dilated. Coronary artery calcifications are present. No pericardial effusion. Aorta: Thoracic aorta non-dilated. Atherosclerosis is present. Upper abdomen: Cholelithiasis. The right kidney is absent. Lymph nodes: Within normal limits. Soft tissues: Unremarkable. Bones:Within normal limits for the patient's age. There is again seen a right convex scoliosis of th e thoracic spine. IMPRESSION: 1. Stable right lower lobe pulmonary nodule. 2. Interval decrease in size of the nodular infiltrate in the left lower lobe. 3. Follow-up examination in 3-6 months is recommended for re-evaluation. RADIATION DOSE DELIVERED: 364.21mGy.cm Total DLP 364.21mGy.cm Total DLP DATA REPOSITORY: All CT scans at this facility are submitted to the National Radiology Data Registry (NRDR) Dose Index Registry (DIR) with the [employer] (ACR). RADIATION OPTIMIZATION: All CT scans at this facility use at least one of these dose optimization te chniques: automated exposure control; mA and/or kV adjustment per patient size (includes targeted exa ms where dose is matched to clinical indication); or iterative reconstruction.
== END ==
PROVIDERS: PCP Family Medicine; Visit Provider Internal Medicine
DX: R91.8 Other nonspecific abnormal finding of lung field (principal); R91.1 Solitary pulmonary nodule
CPT/HCPCS: 71250

== ENCOUNTER 2022-04-30 17:24 | Outpatient (REF) | payer MEDICARE, OTHER, SELFPAY ==
[2022-04-30 16:28] LABS: Anion Gap 4.1 mmol/L (3-11); BUN 29 mg/dL (7-18); CO2 31.9 mmol/L (21.0-32.0); CREATININE 1.4 mg/dL (0.55-1.02); Calcium 9.3 mg/dL (8.5-10.1); Chloride 99 mmol/L (98-107); Estimated GFR 35.74 (mL/min/1.73m2); Glucose 72 mg/dL (74-106); Potassium 4.8 mmol/L (3.5-5.1); Sodium 135 mmol/L (136-145)
== END 2022-04-30 17:25 | disposition home or self-care (01) ==
LOC: NCHCN 17:24
PROVIDERS: PCP Family Medicine; Visit Provider Family Medicine
DX: I10 Essential (primary) hypertension (principal); N18.31 Chronic kidney disease, stage 3a
CPT/HCPCS: 80048

== ENCOUNTER → 2022-05-27 01:01 | Outpatient (CLI) | payer MEDICARE, OTHER, SELFPAY ==
--- NOTE | 2022-05-27 | DI.US_ITS ---
Exam(s) US RENAL EXAM: US RENAL CLINICAL HISTORY: CHRONIC KIDNEY DISEASE,N18.31, TECHNIQUE: Ultrasound of both kidneys performed using standard protocol. COMPARISON: US US ABD PELV TRANSVAG NON-OB from 05/22/2021 FINDINGS: RIGHT KIDNEY: Surgically absent. LEFT KIDNEY: Measures 11.5 cm in length. Appears unremarkable. No cysts evident. Normal cortical thickness and c orticomedullary differentiaion. No solids masses. No intrarenal calculi nor hydonephrosis. URINARY BLADDER: Prevoid volume is 187 cc Postvoid volume is 4 cc No evidence of bladder mass nor diverticuli. Ureterovesical jets: Left ureterovesical jet was not seen. IMPRESSION: 1. Right kidney is surgically absent. 2. No obvious abnormality in the left kidney and left kidney exhibits normal size. No obvious abnormality in the urinary bladder. DATA REPOSITORY:
== END ==
PROVIDERS: PCP Family Medicine; Visit Provider Family Medicine
DX: N18.31 Chronic kidney disease, stage 3a (principal)
CPT/HCPCS: 76770

== ENCOUNTER 2022-06-02 09:57 | Outpatient (REF) | payer MEDICARE, OTHER, SELFPAY ==
[2022-06-02 15:08] LABS: Bilirubin Negative (Negative); Blood Negative (Negative); Clarity Clear (Clear); Glucose Negative (Negative); Ketones Negative (Negative); Leukocyte Esterase Negative (Negative); Nitrite Negative (Negative); Urobilinogen 0.2 EU/dL (Up TO 0.2); pH 5.5 (5-8)
[2022-06-02 15:48] LABS: Anion Gap 3.9 mmol/L (3-11); BUN 26 mg/dL (7-18); CO2 31.1 mmol/L (21.0-32.0); CREATININE 1.1 mg/dL (0.55-1.02); Calcium 9.4 mg/dL (8.5-10.1); Chloride 98 mmol/L (98-107); Estimated GFR 49.24 (mL/min/1.73m2); Glucose 124 mg/dL (74-106); Potassium 4.4 mmol/L (3.5-5.1); Sodium 133 mmol/L (136-145)
== END 2022-06-02 09:58 | disposition home or self-care (01) ==
LOC: NCHCN 09:57
PROVIDERS: PCP Family Medicine; Visit Provider Family Medicine
DX: N18.31 Chronic kidney disease, stage 3a (principal)
CPT/HCPCS: 80048; 81003

== ENCOUNTER 2022-06-11 11:06 | Outpatient (REF) | payer MEDICARE, OTHER, SELFPAY ==
[2022-06-12 09:18] LABS: Kappa Free Light Chain 2.35 mg/dL (0.33-1.94); Lambda Free Light Chain 2.88 mg/dL (0.57-2.63)
[2022-06-12 14:52] LABS: Albumin, Urine % 18.4 %; Albumin, Urine mg/dL 2 mg/dL; Globulins, Urine % 81.6 %; Globulins, Urine mg/dL 7 mg/dL; Immunotyping, Urine (See Note); Total Protein Urine 9 mg/dL (See Note)
[2022-06-12 15:00] LABS: Albumin 55.4 % (55.8-66.1); Albumin g/dL 4.2 g/dL (3.6-5.2); Total Protein 7.5 g/dL (6.3-8.2)
== END 2022-06-11 11:07 | disposition home or self-care (01) ==
LOC: NCHCN 11:06
PROVIDERS: PCP Family Medicine; Visit Provider Family Medicine
DX: C90.00 Multiple myeloma not having achieved remission (principal)
CPT/HCPCS: 84156; 84166; 86335; 83883; 84165

== ENCOUNTER 2023-01-05 16:34 | Outpatient (REF) | payer MEDICARE, OTHER, SELFPAY ==
[2023-01-05 15:50] LABS: Anion Gap 6.6 mmol/L (3-11); BUN 28 mg/dL (7-18); CO2 29.4 mmol/L (21.0-32.0); CREATININE 1.3 mg/dL (0.55-1.02); Calcium 9.1 mg/dL (8.5-10.1); Chloride 99 mmol/L (98-107); Glucose 73 mg/dL (74-106); Potassium 5.2 mmol/L (3.5-5.1); Sodium 135 mmol/L (136-145)
[2023-01-05 16:04] LABS: Hemoglobin A1C 6.1 % (<5.7)
== END 2023-01-05 16:35 | disposition home or self-care (01) ==
LOC: NCHCN 16:34
PROVIDERS: PCP Family Medicine; Visit Provider Family Medicine
DX: R73.03 Prediabetes (principal); N18.31 Chronic kidney disease, stage 3a
CPT/HCPCS: 80048; 83036

== ENCOUNTER 2023-02-17 18:57 | Outpatient (REF) | payer MEDICARE, OTHER, SELFPAY ==
[2023-02-17 16:06] LABS: Anion Gap 2.6 mmol/L (3-11); BUN 32 mg/dL (7-18); CO2 31.4 mmol/L (21.0-32.0); CREATININE 1.4 mg/dL (0.55-1.02); Calcium 8.9 mg/dL (8.5-10.1); Chloride 100 mmol/L (98-107); Estimated GFR 36.64 (mL/min/1.73m2); Glucose 99 mg/dL (74-106); Potassium 4.8 mmol/L (3.5-5.1); Sodium 134 mmol/L (136-145)
== END 2023-02-17 18:58 | disposition home or self-care (01) ==
LOC: NCHCN 18:57
PROVIDERS: PCP Family Medicine; Visit Provider Family Medicine
DX: E87.5 Hyperkalemia (principal)
CPT/HCPCS: 80048

== ENCOUNTER 2023-04-30 04:16 | Outpatient (CLI) | payer MEDICARE, SELFPAY ==
[2023-04-30 11:43] LABS: Anion Gap 2.7 mmol/L (3-11); BUN 27 mg/dL (7-18); CO2 32.3 mmol/L (21.0-32.0); CREATININE 1.1 mg/dL (0.55-1.02); Calcium 8.9 mg/dL (8.5-10.1); Chloride 98 mmol/L (98-107); Estimated GFR 48.94 (mL/min/1.73m2); Glucose 66 mg/dL (74-106); Magnesium 1.9 mg/dL (1.8-2.4); Potassium 3.8 mmol/L (3.5-5.1); Sodium 133 mmol/L (136-145)
[2023-04-30 12:08] LABS: PHOSPHORUS 3.8 mg/dL (2.6-4.7)
== END 2023-04-30 04:17 | disposition home or self-care (01) ==
LOC: LBO 04:16
PROVIDERS: PCP Family Medicine; Visit Provider Internal Medicine Nephrology
DX: N18.31 Chronic kidney disease, stage 3a (principal)
CPT/HCPCS: 36415; 80048; 83735; 84100

== ENCOUNTER → 2023-06-29 02:21 | Outpatient (CLI) | payer MEDICARE, OTHER, SELFPAY ==
--- NOTE | 2023-06-29 07:57 | DI.MAMMO_ITS ---
Exam(s) MAMMO SCREENING EXAM: MAMMO SCREENING CLINICAL HISTORY: SCREENING MAMMO FOR BREAST CANCER Z12.31. TECHNIQUE: Bilateral full field digital CC and MLO mammographic images were obtained with 3D tomosyn thesis and utilizing computer aided detection (CAD). COMPARISON: Prior mammograms were reviewed. FINDINGS: There has been no significant change in the appearance and distribution of the fibroglandular tissue. There are no new spiculated masses nor malignant appearing microcalcification groups. There is no significant architectural distortion nor skin thickening-retraction. IMPRESSION: No radiographic evidence of malignancy. BI-RADS Category 1 - Negative Breast Density - Category C - Heterogeneously dense Breast density Category C or D implies that the patient has dense breast tissue. Dense breast tissue can make it harder to find cancer on a mammogram. Dense breast tissue is also associated with an incr eased risk of breast cancer. This information about the result of the mammogram report was provided to the patient to raise their awareness. Use this report when you speak with the patient about their risks for breast cancer, which includes their family history. At that time, you may recommend additional screening tests (Ultrasoun d or MRI) as these tests may add significant information. A negative radiographic report should not delay biopsy if a dominant or clinically suspicious mass is present. Up to ten percent of cancers are not identified on mammography. A negative report may reinforce clinical impression. Adenosis and dense breasts may obscure an underlying neoplasm. False positive reports average 6 to 10%. Patient will receive a letter notifying them of these results.
== END ==
PROVIDERS: PCP Family Medicine; Visit Provider Family Medicine
DX: Z12.31 Encounter for screening mammogram for malignant neoplasm of breast (principal)
CPT/HCPCS: 77063; 77067

== ENCOUNTER 2023-08-12 12:42 | Outpatient (CLI) | payer MEDICARE, OTHER, SELFPAY ==
[2023-08-05 15:15] LABS: Anion Gap 3.2 mmol/L (3-11); BUN 25 mg/dL (7-18); CO2 31.8 mmol/L (21.0-32.0); CREATININE 1.2 mg/dL (0.55-1.02); Calcium 9.3 mg/dL (8.5-10.1); Chloride 101 mmol/L (98-107); Estimated GFR 44.08 (mL/min/1.73m2); Glucose 95 mg/dL (74-106); Potassium 4.6 mmol/L (3.5-5.1); Sodium 136 mmol/L (136-145)
== END 2023-08-12 12:43 | disposition home or self-care (01) ==
LOC: LBO 12:43
PROVIDERS: PCP Family Medicine; Visit Provider Internal Medicine Nephrology
DX: N18.31 Chronic kidney disease, stage 3a (principal)
CPT/HCPCS: 36415; 80048

== ENCOUNTER 2024-03-01 02:54 | Outpatient (CLI) | payer MEDICARE, OTHER, SELFPAY ==
[2024-03-01 12:19] LABS: Anion Gap 6.4 mmol/L (3-11); BUN 29 mg/dL (7-18); CO2 31.6 mmol/L (21.0-32.0); CREATININE 1.2 mg/dL (0.55-1.02); Calcium 9.3 mg/dL (8.5-10.1); Chloride 98 mmol/L (98-107); Estimated GFR 43.81 (mL/min/1.73m2); Glucose 84 mg/dL (74-106); Sodium 136 mmol/L (136-145)
== END 2024-03-01 02:55 | disposition home or self-care (01) ==
LOC: LBO 03:13
PROVIDERS: PCP Family Medicine; Visit Provider Internal Medicine Cardiovascular Disease
DX: I10 Essential (primary) hypertension (principal)
CPT/HCPCS: 36415; 80048

== ENCOUNTER 2024-04-26 02:08 | Outpatient (CLI) | payer MEDICARE, OTHER, SELFPAY ==
--- OUTSIDE RECORDS SUMMARY | 2024-04-26 02:18 | XMS_ITS | Encounter Summary ---
Author Organization [facility] [place] [address] Care Team Providers Care Form Maker Name Role Phone Uyen Gerard MD Primary Care Provider [phone] Encounter Details Date Type Department Care Team (Late st Contact Info) Description 03/08/2024 External Results Ne[place] [phone] Social History Tobacco Use Types Packs/Day Years Used Date Smoking Tobacco: Never Smokeless Tobacco: Never Alcohol Use Standard Drinks/Week Comments Yes 7 (1 standard drink = 0.6 oz pur e alcohol) Sex and Gender Information Value Date Recorded Sex Assigned at Female 03/31/2021 2:10 PM EDT Gender Identity Female 01/18/2024 2:59 PM EDT Sexual Orientation Not on file documented as of this encounter Plan of Treatment Upcoming Encounters Date Type Department Care Team (Late st Contact Info) Description 05/18/2024 4:30 PM EDT Office [place] [phone] Carmelina Donaldson MD [facility] [place] [address] 05/31/2024 1:00 PM EDT Appointment [place] [phone] documented as of this encounter Procedures Procedure Name Priority Date/Time Associated Diagnosis Comments GENERAL CHEMISTERY EXTERNAL LAB PANEL Routine 03/01/2024 8:40 AM EDT GENERAL CHEMISTERY EXTERNAL LAB PANEL Routine 06/11/2022 8:41 AM EDT documented in this encounter Results * General Chemistery External Lab Panel (03/01/2024 8:40 AM EDT) Historical Provider POINT OF CARE RENUKA T ORDERABLES * General Chemistery External Lab Panel (06/11/2022 8:41 AM EDT) Historical Provider POINT OF CARE RENUKA T ORDERABLES documented in this encounter Visit Diagnoses Not on filedocumented in this encounter Care Teams Form Maker Relationship Specialty Start Date End Date Uyen Gerard MD [address]ina [address] [place] [address] PCP - General 07/01/13 documented as of this encounter
--- OUTSIDE RECORDS SUMMARY | 2024-04-26 02:18 | XMS_ITS | Clinical Summary ---
Author Organization [facility] Address [address] [facility] [place] [address] Care Team Providers Care Pressure Control Supervisor Name Role Phone Uyen Gerard MD Primary Care Provider [phone] Allergies Active Allergy Reactions Criticality Noted Date Comments Codeine Phosphate Medications Medication Sig Dispensed Refills Start Date End Date Status DOCUSATE SODIUM (COLACE ORAL) 01/02/2009 Active SUMAtriptan (Imitrex) 25 mg Tablet Take 50 mg by mouth as needed. Active Calcium 500 mg Tab Take 2 gummies by mouth daily. Active atorvastatin (LIPITOR) 10 mg tablet Take 10 mg by mouth daily. Active cholecalciferol, Vitamin D3, 25 mcg (1,000 unit) Capsule Take 2,000 Units by mouth daily. Active amLODIPine (NORVASC) 5 mg Tablet Take 5 mg by mouth daily. Active losartan (COZAAR) 50 mg Tablet Take 100 mg by mouth nightly. Active ascorbic acid, vitamin C, (VITAMIN C) 1,000 mg Tablet Take by mouth daily. Active flecainide (TAMBOCOR) 50 mg Tablet Take 50 mg by mouth 2 times daily. Active apixaban (Eliquis) 5 mg Tablet Take 5 mg by mouth 2 times daily. Active metoprolol succinate XL (Toprol-XL) 50 mg Tablet Sustained Release 24 hr Take by mouth. 75 MG-AM, 50 MG-PM Active latanoprost (Xalatan) 0.005 % Drops Place 1 drop into both eyes nightly. 12/17/2021 Active spironolactone (Aldactone) 25 mg tabletIndications:E ssential hypertension Take 0.5 tablets by mouth daily. 45 tablet 3 09/25/2023 Active levalbuteroL (Xopenex) 0.63 mg/3 mL Solution for NebulizationIndicat ions:Interstitial lung disease,Bronchiecta sis without complication Take 3 mLs by nebulization 2 times daily. 540 mL 1 01/02/2024 Active levalbuteroL (Xopenex HFA) 45 mcg/actuation inhaler (HFA) Inhale 1-2 puffs into the lungs every 4 hours as needed. 1 each 3 01/20/2024 Active dorzolamide (Trusopt) 2 % Drops Place into both eyes 2 times daily. 09/30/2023 Active fluticasone furoate-umeclidiniu m-vilanteroL (Trelegy Ellipta) 100-62.5-25 mcg inhaler (DPI) daily. 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 current use of antiarrhythmic medical therapy 08/18/2021 Venous insufficiency 06/08/2020 Chronic renal insufficiency, stage III (moderate ) 08/08/2019 Mixed hyperlipidemia 08/08/2019 Paroxysmal atrial fibrillation 08/08/2019 Sleep apnea in adult 08/08/2019 Stucco keratosis 01/02/2015 Seborrheic keratosis 01/02/2015 Dermal nevus of other site 01/02/2015 Solar lentigo 01/02/2015 Hypertension 06/02/2011 Renal cell cancer 06/02/2011 COPD (chronic obstructive pulmonary disease) Encounters Date Type Department Care Team Description 03/08/2024 External Results [place]ph[place] [address] 01/27/2024 8:48 AM EDT - 01/27/2024 11:59 PM EDT Hospital En[place] [address] Bronchiectasis without complication Discharge Disposition: Home 01/27/2024 Orders [place] [address] Carmelina Donaldson MD Interstitial lung disease 01/27/2024 Travel 01/25/2024 3:00 PM EDT Office Visit Ne[place] [phone] Manuel Ricks MD Stage 3 chronic kidney disease, unspecified whether stage 3a or 3b CKD; Hypertension, unspecified type; Hyponatremia 01/25/2024 [place] [phone] Uyne [place]field 01/25/2024 Travel from Last 3 Months Immunizations Name Administration Dates Next Due Influenza PF, Split 06/17/2012, 1,07/22/2002, 001 Influenza Split Virus (incl. Purified Surface Antigen) 06/19/2004,07/12/2003 Family History Medical History Relation Comments Migraines Daughter Thyroid Disease Daughter Rheumatoid Arthritis Maternal Grandmother Hypertension Mother Stroke Mother mini Myocardial Infarction Paternal Grandmother Relation Status Comments Daughter Maternal Grandmother Mother Paternal Grandmother Social History Tobacco Use Types Packs/Day Years Used Date Smoking Tobacco: Never Smokeless Tobacco: Never Tobacco Cessation:Counseling Given: Not Answered Alcohol Use Standard Drinks/Week Comments Yes 7 (1 standard drink = 0.6 oz pur e alcohol) Sex and Gender Information Value Date Recorded Sex Assigned at Female 03/31/2021 2:10 PM EDT Gender Identity Female 01/18/2024 2:59 PM EDT Sexual Orientation Not on file Last Filed Vital Signs Vital Sign Reading Time Taken Comments Blood Pressure 136/69 01/25/2024 3:07 PM EDT Pulse 78 01/25/2024 3:07 PM EDT Temperature 36.6 ??C (97.9 ??F) 01/20/2024 3:45 PM ED T Respiratory Rate 16 07/08/2023 3:30 PM EDT Oxygen Saturation 96% 01/20/2024 3:45 PM EDT Inhaled Oxygen Concentration - - Weight 57.6 kg (127 lb) 01/25/2024 3:07 PM EDT Height 160 cm (5' 3) 01/25/2024 3:07 PM EDT Body Mass Index 22.5 01/25/2024 3:07 PM EDT Plan of Treatment Upcoming Encounters Date Type Department Care Team (Late st Contact Info) Description 05/18/2024 4:30 PM EDT Office [place] [phone] Carmelina Donaldson MD [facility] [place] [address] 05/31/2024 1:00 PM EDT Appointment [place] [address] Health Maintenance Due Date Last Done Comments Pneumoccocal Vaccine: 65+ (1 of 2 - PCV) 1941 Tdap adult 01/15/1956 Tetanus vaccine 01/15/1956 Zoster vaccine (1 of 2) 1987 Advance Directive 01/15/1992 Bone Density Scan 2002 Covid-19 Vaccine (1 - 2022-2 4 season) 2023 Influenza (Flu) vaccine (1 o f 1 - Influenza standard series) 05/08/2024 06/17/2012, 06/03/2011, 07/22/2002, Additional history exists Procedures Procedure Name Priority Date/Time Associated Diagnosis Comments GENERAL CHEMISTERY EXTERNAL LAB PANEL Routine 03/01/2024 8:40 AM EDT COMMON PULMONARY FUNCTION TEST Routine 01/27/2024 12:00 AM EDT Bronchiectasis without complication URINALYSIS MICROSCOPIC EXAM STAT 01/25/2024 4:00 PM EDT URINALYSIS WITH REFLEX CULTURE STAT 01/25/2024 4:00 PM EDT Stage 3 chronic kidney disease, unspecified whether stage 3a or 3b CKD U ALBUMIN/CRE RATIO STAT 01/25/2024 4 :00 PM EDT Stage 3 chronic kidney disease, unspecified whether stage 3a or 3b CKD DIFFERENTIAL, AUTOMATED STAT 01/25/2024 3:56 PM EDT Stage 3 chronic kidney disease, unspecified whether stage 3a or 3b CKD HEMOGRAM STAT 01/25/2024 3:56 PM EDT Stage 3 chronic kidney disease, unspecified whether stage 3a or 3b CKD CBC (WITH DIFF) STAT 01/25/2024 3:56 PM EDT Stage 3 chronic kidney disease, unspecified whether stage 3a or 3b CKD PHOSPHORUS STAT 01/25/2024 3:56 PM EDT Stage 3 chronic kidney disease, unspecified whether stage 3a or 3b CKD PTH STAT 01/25/2024 3:56 PM EDT Stage 3 chronic kidney disease, unspecified whether stage 3a or 3b CKD COMPREHENSIVE METABOLIC PANEL STAT 01/25/2024 3:56 PM EDT Stage 3 chronic kidney disease, unspecified whether stage 3a or 3b CKD MAGNESIUM STAT 01/25/2024 3:56 PM EDT Stage 3 chronic kidney disease, unspecified whether stage 3a or 3b CKD from Last 3 Months Results * General Chemistery External Lab Panel (03/01/2024 8:40 AM EDT) Historical Provider POINT OF CARE RENUKA T ORDERABLES * Common Pulmonary Function Test (01/27/2024 12:00 AM EDT) Narrative COMPAS PFT - 01/27/2024 12:00 AM EDT SpO2 on room air at rest: 96 % ?? HR: ??75 ??BPM ?? walked 1000 feet and down/up 2 flights of stairs on room air: ??SpO2: 94% ??HR: 86 bpm moderate dyspnea noted. IMPRESSION: No desaturation with exertion. Procedure Note Gage Franco MD - 02/01/2024 SpO2 on room air at rest: 96 % HR: 75 BPM walked 1000 feet and down/up 2 flights of stairs on room air: SpO2: 94%HR: 86 bpm moderate dyspnea noted. IMPRESSION: No desaturation with exertion. Carmelina Donaldson MD PFT ORDERABLES COMPAS PFT * (ABNORMAL) Urinalysis Microscopic Exam (01/25/2024 4:00 PM EDT) RBC, Urine 1 0 - 4 /HPF [facility] WBC, Urine 6(H) 0 - 5 /HPF [facility] Squamous Epithelial Cells Raw Data, Urine 10(H) <=4 /HPF [facility] Hyaline Casts, Urine 1 0 - 2 /LPF [facility] Urine NS 01/25/2024 4:00 PM EDT 01/25/2024 5:08 PM EDT Narrative Resulting Agency Comment Spec In Lab Manuel Ricks MD URINE ORDERABLES [facility] [place] [address] * U Albumin/Cre Ratio (01/25/2024 4:00 PM EDT) Albumin / Creatinin Ratio, Urine 4 0 - 29 mcg/mg Cr [facility] Comment: Reference Ranges: <30 mcg/mg: Normal 30-300 mcg/mg: Moderately increased albuminuria.* >300 mcg/mg: Severely increased albuminuria. * ACEI or ARB recommended if diabetic; suggested if BP>130/80 without diabetes ACEI or ARB strongly recommended if diabetic; recommended if BP>130/80 without diabetes Two of three specimens collected within a 3 to 6 month period should be abnormal before considering a patient to have albuminuria. Transient causes: exercise, fever, infection, CHF, marked hyperglycemia or hypertension. Persistent albuminuria indicates CKD and is an independent risk factor for ASCVD. ADA Standards of Medical Care in Diabetes-2016; KDIGO: Kidney International Supplements (2012) 2, 357? 362 Albumin, Urine 3.6 mg/L [facility] Creatinine, Urine 94 mg/dL [facility] Urine 01/25/2024 4:00 PM EDT 01/25/2024 5:06 PM EDT Narrative Resulting Agency Comment Spec In Lab Manuel Ricks MD URINE ORDERABLES [facility] [place] [address] * (ABNORMAL) Urinalysis with reflex Culture (01/25/2024 4:00 PM EDT) Glucose, Urine Dipstick Negative Negative mg/dL [facility] Protein, Urine Dipstick Negative Negative mg/dL [facility] Bilirubin, Urine Dipstick Negative Negative mg/dL [facility] Comment: Clinical correlation required for positive Urine Bilirubin results as false positive may occur with some drugs and drug related products. If a false positive is suspected a serum total bilirubin should be considered if clinically indicated. Urobilinogen, Urine Dipstick Normal Normal mg/dL [facility] pH, Urn (dipstick) 6.0 5.0 - 8.0 [facility] Blood, Urine Dipstick Negative Negative mg/dL [facility] Ketone, Urine Dipstick Negative Negative mg/dL [facility] Nitrite, Urine Dipstick Negative Negative [facility] Leukocytes, Urine Dipstick Small(A) Negative [facility] Appearance, Urine Dipstick Clear Clear [facility] Specific [place] Urine Automated 1.015 1.005 - 1.030 [facility] Color, Urine Dipstick Yellow Yellow [facility] Reflex to Culture No [facility] Urine NS 01/25/2024 4:00 PM EDT 01/25/2024 5:05 PM EDT Narrative Resulting Agency Comment Spec In Lab Manuel Ricks MD URINE ORDERABLES [facility] [place] [address] * PTH (01/25/2024 3:56 PM EDT) Parathyroid Hormone 47 15 - 65 pg/mL [facility] Blood 01/25/2024 3:56 PM EDT 01/25/2024 4:03 PM EDT Narrative Resulting Agency Comment Spec In Lab Manuel Ricks MD CHEMISTRY ORDERABLES Performing Organization Address City/[facility]/ZIP Co de Phone Number [facility] [place] [address] * Hemogram (01/25/2024 3:56 PM EDT) White Blood Cell 7.8 4.0 - 9.5 x10(3)/[facility] Red Blood Cell 4.39 4.00 - 5.21 x10(6)/[facility] Hemoglobin 13.1 11.7 - 15.5 g/dL [facility] Hematocrit 40.6 35.7 - 45.8 % [facility] Mean Cell Volume 92.5 82.6 - 94.4 fL [facility] Mean Cell Hemoglobin 29.8 27.1 - 32.0 pg [facility] Mean Cell Hemoglobin Concentration 32.3 31.7 - 35.0 g/dL [facility] Platelet 248 145 - 357 x10(3)/[facility] RDW Standard Deviation 44.4 37.0 - 46.0 [facility] RDW coefficient of variation 13.1 11.5 - 14.1 % [facility] Mean Platelet Volume 9.2 7.6 - 12.9 fL [facility] NRBC% auto 0.0 % [facility] NRBC Absolute 0.000 0.000 - 0.000 x10(3)/[facility] Blood 01/25/2024 3:56 PM EDT 01/25/2024 4:03 PM EDT Narrative Resulting Agency Comment Spec In Lab Manuel Ricks MD HEMATOLOGY ORDERABLE S [facility] [place] [address] * Differential, Automated (01/25/2024 3:56 PM EDT) Neutrophil % 65.8 % [facility] Neutrophil Absolute 5.15 1.70 - 6.10 x10(3)/[facility] Lymph % 19.9 % [facility] Lymphocytes Abs 1.6 0.9 - 3.2 x10(3)/[facility] Monocyte % 10.8 % [facility] Monocyte Abs 0.8 0.3 - 0.9 x10(3)/[facility] Eos % 2.0 % [facility] Eosinophils Abs 0.2 0.0 - 0.4 x10(3)/[facility] Basophil % 1.0 % [facility] Baso Absolute 0.1 0.0 - 0.1 x10(3)/[facility] Immature Gran % 0.50 % [facility] Comment: Immature granulocytes(IG's)percentage and absolute count will include metamyelocytes, myelocytes, and promyelocytes. Blood smears from CBCs yielding IG's will be scanned manually for concordance. If this scan disagrees with the automated IG or if promyelocytes are noted, a manual differential will be performed. Immature Gran Absolute 0.04 0.00 - 0.04 x10(3)/[facility] Blood 01/25/2024 3:56 PM EDT 01/25/2024 4:03 PM EDT Narrative Resulting Agency Comment Spec In Lab Manuel Ricks MD HEMATOLOGY ORDERABLE S [facility] [place] [address] * Phosphorus (01/25/2024 3:56 PM EDT) Phosphorus 3.8 2.5 - 4.5 mg/dL [facility] Blood 01/25/2024 3:56 PM EDT 01/25/2024 4:03 PM EDT Narrative Resulting Agency Comment Spec In Lab Manuel Ricks MD CHEMISTRY ORDERABLES Performing Organization Address [facility] Co de Phone Number [facility] [place] [address] * Magnesium (01/25/2024 3:56 PM EDT) Magnesium 0.92 0.69 - 1.07 mmol/L [facility] Blood 01/25/2024 3:56 PM EDT 01/25/2024 4:03 PM EDT Narrative Resulting Agency Comment Spec In Lab Manuel Ricks MD CHEMISTRY ORDERABLES Performing Organization Address [facility] de Phone Number [facility] [place] [address] * (ABNORMAL) Comprehensive metabolic panel (non-fasting) (01/25/2024 3:56 PM EDT) Glucose 84 65 - 199 mg/dL [facility] Comment:Diabetes: >=200 mg/d L plus symptoms Blood Urea Nitrogen 28(H) 8 - 18 mg/dL [facility] Creatinine 1.28(H) 0.70 - 1.20 mg/dL [facility] Sodium 132(L) 135 - 145 mmol/L [facility] Potassium 4.5 3.5 - 5.0 mmol/L [facility] Comment: Please note: ??Patients with WBC >100,000 may have falsely elevated Potassium levels. ??For accurate Potassium quantification in these patients send serum separator tube (gold top) for subsequent determinations. ??Contact the Clinical Chemistry Laboratory if there are any questions. Chloride 98 98 - 107 mmol/L [facility] Carbon Dioxide 27 22 - 31 mmol/L [facility] Anion Gap 7 5 - 15 mmol/L [facility] Calcium 9.4 8.5 - 10.5 mg/dL [facility] Protein, Total 7.6 6.1 - 8.0 g/dL [facility] Albumin 4.1 3.2 - 5.2 g/dL [facility] Aspartate Aminotransferase 28 0 - 30 unit/L [facility] Alanine Aminotransferase 18 0 - 30 unit/L [facility] Alkaline Phosphatase 84 35 - 105 unit/L [facility] Bilirubin, Total 0.4 0.2 - 1.3 mg/dL [facility] Est Glomerular Filtration Rate 41(L) >=60 mL/min/1. 73 m?? [facility] Comment: This patient's estimated GFR was calculated using the 2020 CKD-EPI equation. The estimated GFR can vary from the measured GFR by up to 30% in the absence of rapidly changing kidney function. Assessment of the estimated GFR is not appropriate when creatinine concentrations are rapidly changing. For clinical situations in which a more precise estimate of GFR is necessary, consider alternative methods of GFR estimation such as a 24-hour urine creatinine clearance. Assignment of CKD stage 1-5 for patients with an eGFR near the transition point between stages may be based on clinical assessment of muscle mass and symptoms in addition to eGFR. Blood 01/25/2024 3:56 PM EDT 01/25/2024 4:03 PM EDT Narrative Resulting Agency Comment Spec In Lab Manuel Ricks MD CHEMISTRY ORDERABLES [facility] [place] [address] from Last 3 Months Care Teams Pressure Control Supervisor Relationship Specialty Start Date End Date Uyen Gerard MD [address] [place] [address] PCP - General 07/01/13
--- OUTSIDE RECORDS SUMMARY | 2024-04-26 02:18 | XMS_ITS | Encounter Summary ---
Author Organization [facility] [place] [address] Care Team Providers Care Senior Microstrategy Developer Name Role Phone Uyen Gerard MD Primary Care Provider [phone] Encounter Details Date Type Department Care Team (Latest Contact Info) Description 01/27/2024 Travel Social History Tobacco Use Types Packs/Day Years [...] 4:30 PM EDT [place] [phone] Carmelina Donaldson MD [facility] [place] [address] 05/31/2024 1:00 PM EDT [place] [address] documented as of this encounter Visit Diagnoses Not on filedocumented in this encounter Care Teams Senior Microstrategy Developer Relationship Specialty Start Date End Date Uyen Gerard MD [facility] [address] [place] [address] PCP - General 07/01/13 documented as of this encounter
--- OUTSIDE RECORDS SUMMARY | 2024-04-26 02:18 | XMS_ITS | Clinical Summary ---
Author Organization [facility] Address [address] [place] [address] Care Team Providers Care Automatic Pad Making Machine Operator Name Role Phone Nicolás Gallagher MD Primary Care Provider Ambar pascual Social History Tobacco Use Types Packs/Day Years Used Date Smoking Tobacco: Never Assessed Sex and Gender Information Value Date Recorded Sex Assigned at Not on file Gender Identity Not on file Sexual Orientation Not on file Plan of Treatment Health Maintenance Due Date Last Done Comments Depression Screen 1949 DTaP/Tdap/Td vaccine (1 - Tdap) 01/15/1956 Shingles vaccine (1 of 2) 1987 Respiratory Syncytial Virus (RSV) or age 60 yrs+ (1 - 1-dose 60+ series) 1997 Pneumococcal 65+ years Vacci ne (1 of 1 - PCV) 2002 COVID-19 Vaccine (2022-2 4 season) 2023 Flu vaccine (#1) 04/07/2024 Hepatitis A vaccine Aged Out No longe r eligible based on patient's age to complete this topic Hepatitis B vaccine Aged Out No longe r eligible based on patient's age to complete this topic Hib vaccine Aged Out No longer eligi ble based on patient's age to complete this topic Meningococcal (ACWY) vaccine Aged Out No longer eligible based on patient's age to complete this topic Polio vaccine Aged Out No longer elig ible based on patient's age to complete this topic Care Teams Automatic Pad Making Machine Operator Relationship Specialty Start Date End Date Nicolás Gallagher MD PCP - General 10/27/20
--- OUTSIDE RECORDS SUMMARY | 2024-04-26 02:18 | XMS_ITS ---
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 Past Plans No past plan information found. Radiation Treatments * No radiation treatments are documented for this patient in [facility]. Treatments may have been administered in another system. Lifetime Dose Tracking * Chemical Lifetime Dose Automatic Entry Manual Entr y DLP (Dose Length Product) 134 mGy-cm 134 mGy-cm 0 mGy-cm CTDI (CT Dose Index) Min 3.69 mGy 3.69 mGy 0 m Gy CTDI (CT Dose Index) Max 3.69 mGy 3.69 mGy 0 m Gy
--- OUTSIDE RECORDS SUMMARY | 2024-04-26 02:18 | XMS_ITS | Encounter Summary ---
Author Organization [place] [address] Care Team Providers Care Railway Signalling Engineer Name Role Phone Uyen Gerard MD Primary Care Provider [phone] Encounter Details Date Type Department Care Team (Late st Contact Info) Description 01/27/2024 Orders [place] [phone] Carmelina Donaldson MD [facility] [place] [address] Interstitial lung disease Social History Tobacco Use Types Packs/Day Years [...] 4:30 PM EDT Office [place] [phone] Carmelina Donaldson MD [facility] [place] [address] 05/31/2024 1:00 PM EDT [place]ointment [place] [address] Scheduled Orders Name Type Priority Associated Diagnoses Orde r Schedule High Altitude Test (HAST) PFT Routine Interstitial lung disease Expected: 06/01/2024, Expires: 01/27/2025 documented as of this encounter Visit Diagnoses Diagnosis Interstitial lung disease Postinflammatory pulmonary fibrosis documented in this encounter Care Teams Railway Signalling Engineer Relationship Specialty Start Date End Date Uyen Gerard MD [facility] [address] [facility] [address] [place] [address] PCP - General 07/01/13 documented as of this encounter
--- OUTSIDE RECORDS SUMMARY | 2024-04-26 02:18 | XMS_ITS | Encounter Summary ---
Author Organization [facility] [place] [address] Care Team Providers Care Silk Washing Machine Operator Name Role Phone Uyen Gerard MD Primary Care Provider [phone] Encounter Details Date Type Department Care Team (Late st Contact Info) Description 01/25/2024 [place] [phone] Uyen [place] Social History Tobacco Use Types Packs/Day Years [...] 4:30 PM EDT [place] [phone] Carmelina Donaldson MD [facility] [address] 05/31/2024 1:00 PM EDT [place] [phone] documented as of this encounter Visit Diagnoses Not on filedocumented in this encounter Care Teams Silk Washing Machine Operator Relationship Specialty Start Date End Date Uyen Gerard MD [address] [place] [address] PCP - General 07/01/13 documented as of this encounter
--- OUTSIDE RECORDS SUMMARY | 2024-04-26 02:18 | XMS_ITS | Encounter Summary ---
Author Organization [facility] Address [address] [place] [address] Care Team Providers Care Contractor Broomcorn Threshing Name Role Phone Nicolás Gallagher MD Primary Care Provider Ambar pascual Encounter Details Date Type Department Care Team (Latest Contact Info) Description 10/31/2020 12:11 PM EST - 10/31/2020 11:59 PM EST Hospital Encounter [facility] [address] [place] [address] Chronic kidney disease, stage 3 unspecified Social History Tobacco Use Types Packs/Day Years Used Date Smoking Tobacco: Never Assessed Sex and Gender Information Value Date Recorded Sex Assigned at Not on file Gender Identity Not on file Sexual Orientation Not on file documented as of this encounter Plan of Treatment Not on file documented as of this encounter Procedures Procedure Name Priority Date/Time Associated Diagnosis Comments CBC WITH AUTO DIFFERENTIAL Routine 10/31/2020 12:25 PM EST VITAMIN D 25 HYDROXY Routine 10/31/2020 12:25 PM EST URIC ACID Routine 10/31/2020 12:25 PM EST PHOSPHORUS Routine 10/31/2020 12:25 PM EST PTH, INTACT Routine 10/31/2020 12:25 PM EST ALBUMIN Routine 10/31/2020 12:25 PM EST BASIC METABOLIC PANEL Routine 10/31/2020 12:25 PM EST documented in this encounter Results * Phosphorus (10/31/2020 12:25 PM EST) Phosphorus 4.0 2.5 - 4.9 MG/DL 10/31/2020 12:56 PM EST [facility] Serum (Serum or Plasma) 10/31/2020 12:25 PM EST 10/31/2020 12:26 PM EST Hsp Historical Provider CHEMISTRY ORDERA BLES Performing Organization Address City/[facility]/ZIP Co de Phone Number [facility] Dr. Dianelys Corral [address] [place] [address] * Albumin (10/31/2020 12:25 PM EST) Albumin 3.4 3.4 - 5.0 g/dL 10/31/2020 12:55 PM EST [facility] Serum (Serum or Plasma) 10/31/2020 12:25 PM EST 10/31/2020 12:26 PM EST Hsp Historical Provider CHEMISTRY ORDERA BLES Performing Organization Address [facility] Co de Phone Number Annel[facility] Dr. Dianelys Corral [address] [place] [phone] * Uric Acid (10/31/2020 12:25 PM EST) Uric Acid 3.9 2.6 - 6.0 MG/DL 10/31/2020 12:55 PM EST [facility] Serum (Serum or Plasma) 10/31/2020 12:25 PM EST 10/31/2020 12:26 PM EST Hsp Historical Provider CHEMISTRY ORDERA BLES Performing Organization Address City/[facility]/ZIP Co de Phone Number [facility] Dr. Dianelys Corral [address] [place] [address] * Vitamin D 25 Hydroxy (10/31/2020 12:25 PM EST) Pathologist [facility] Vitamin D, 25-Hydroxy, Total 61.1 ng/mL 10/31/2020 10:18 PM EST [facility] Comment: (NOTE) Deficiency ? <20 ng/mL Insufficiency ?20-30 ng/mL Sufficient ?30-100 ng/mL Possible toxicity ? >100 ng/mL The Method used is Siemens Advia Centaur currently standardized to a Center of Disease Control and Prevention (CDC) certified reference method. Samples containing fluorescein dye can produce falsely elevated values when tested with the ADVIA Centaur Vitamin D Assay. It is recommended that results in the toxic range, >100 ng/mL, be retested 72 hours post fluorescein exposure. Serum (Blood Serum) 10/31/2020 12:25 PM EST 10/31/2020 12:26 PM EST Hsp Historical Provider CHEMISTRY ORDERA MECCA [facility] Dr. Dianelys Corral [address] [place], [place] [phone] * (ABNORMAL) CBC with Auto Differential (10/31/2020 12:25 PM EST) Pathologist [facility] WBC 7.7 4.0 - 10.0 K/uL 10/31/2020 12:50 PM EST [facility] RBC 4.36 3.93 - 5.22 M/uL 10/31/2020 12:50 PM EST [facility] Hemoglobin 13.1 11.8 - 14.8 g/dL 10/31/2020 12:50 PM EST [facility] Hematocrit 39.6 36.0 - 45.0 % 10/31/2020 12:50 PM EST [facility] MCV 90.8 80.0 - 95.0 FL 10/31/2020 12:50 PM EST [facility] MCH 30.0 25.6 - 32.2 PG 10/31/2020 12:50 PM EST [facility] MCHC 33.1 32.2 - 35.5 g/dL 10/31/2020 12:50 PM EST [facility] RDW 13.3 11.6 - 14.4 % 10/31/2020 12:50 PM EST [facility] Platelets 228 150 - 400 K/uL 10/31/2020 12:50 PM EST [facility] MPV 9.1(L) 9.4 - 12.4 FL 10/31/2020 12:50 PM EST [facility] Neutrophils % 65 % 10/31/2020 12:50 PM EST [facility] Lymphocytes % 18 % 10/31/2020 12:50 PM EST [facility] Monocytes % 12 % 10/31/2020 12:50 PM EST [facility] Eosinophils % 3 % 10/31/2020 12:50 PM EST [facility] Basophils % 1 0 - 1.2 % 10/31/2020 12:50 PM EST [facility] Neutrophils Absolute 5.1 1.6 - 6.1 K/UL 10/31/2020 12:50 PM EST [facility] Lymphocytes Absolute 1.4 1.2 - 3.7 K/UL 10/31/2020 12:50 PM EST [facility] Monocytes Absolute 1.0(H) 0.2 - 0.8 K/UL 10/31/2020 12:50 PM EST [facility] Eosinophils Absolute 0.2 0.0 - 0.5 K/UL 10/31/2020 12:50 PM EST [facility] Basophils Absolute 0.0 0.0 - 0.1 K/UL 10/31/2020 12:50 PM EST [facility] Differential Type AUTOMATED 10/31/2020 12:50 PM EST [facility] Immature Granulocytes % 1(H) 0 - 0.4 % 10/31/2020 12:50 PM EST [facility] Granulocyte Absolute Count 0.0 0 - 0.03 K/UL 10/31/2020 12:50 PM EST [facility] Whole Blood (Blood Whole) 10/31/2020 12:25 PM EST 10/31/2020 12:26 PM EST Hsp Historical Provider HEMATOLOGY ORDER DAISY Performing Organization Address [facility] Co de Phone Number [facility] Dr. Dianelys Corral [address] [place] [address] * PTH, Intact (10/31/2020 12:25 PM EST) PTH 35.9 18.4 - 80.1 pg/mL 10/31/2020 9:35 PM EST [facility] Comment: (NOTE) Calcium within the reference range and intact PTH below the analytical measurement range suggestive of primary hypoparathyroidism. Elevated calcium and intact PTH below the analytical measurement range suggestive of hypercalcemia of malignancy. Elevated calcium and intact PTH greater than the midpoint of the reference range suggestive of primary hyperparathyroidism. Serum (Blood Plasma) 10/31/2020 12:25 PM EST 10/31/2020 12:26 PM EST Hsp Historical Provider CHEMISTRY ORDERA BLES Performing Organization Address [facility] Co de Phone Number [facility] Dr. Dianelys Corral [address] [place] [address] * (ABNORMAL) Basic Metabolic Panel (10/31/2020 12:25 PM EST) Sodium 131(L) 136 - 145 mmol/L 10/31/2020 12:55 PM EST [facility] Potassium 4.5 3.5 - 5.1 mmol/L 10/31/2020 12:55 PM EST [facility] Chloride 94(L) 98 - 110 mmol/L 10/31/2020 12:55 PM EST [facility] CO2 33(H) 21 - 32 mmol/L 10/31/2020 12:55 PM EST [facility] Anion Gap 4(L) 5 - 15 mmol/L 10/31/2020 12:55 PM EST [facility] Glucose 79 70 - 100 mg/dL 10/31/2020 12:55 PM EST [facility] BUN 19(H) 7 - 18 MG/DL 10/31/2020 12:55 PM EST [facility] Creatinine 0.94 0.60 - 1.00 MG/DL 10/31/2020 12:55 PM EST [facility] BUN/Creatinine Ratio 20 12 - 20 NA 10/31/2020 12:55 PM EST [facility] GFR >60 >60 ml/min/1.7 3m2 10/31/2020 12:55 PM EST [facility] eGFR NON-AA >60 >60 ml/min/1.7 3m2 10/31/2020 12:55 PM EST [facility] Calcium 9.3 8.5 - 10.1 MG/DL 10/31/2020 12:55 PM EST [facility] Serum (Serum or Plasma) 10/31/2020 12:25 PM EST 10/31/2020 12:26 PM EST Hsp Historical Provider CHEMISTRY ORDERA BLES [facility] Dr. Dianelys Corral [address] [place], [place] [phone] documented in this encounter Visit Diagnoses Diagnosis Chronic kidney disease, stage 3 unspecified (HCC) documented in this encounter Care Teams Contractor Broomcorn Threshing Relationship Specialty Start Date End Date Nicolás Gallagher MD PCP - General 10/27/20 documented as of this encounter
--- OUTSIDE RECORDS SUMMARY | 2024-04-26 02:18 | XMS_ITS | Clinical Summary ---
Author Organization [facility] Address [address] [place] [address] Phone Care Team Providers Care Programming Specialist Name Role Phone Nicolás Gallagher MD Primary Care Provider [phone] Social History Tobacco Use Types Packs/Day Years Used Date Smoking Tobacco: Never Assessed Sex and Gender Information Value Date Recorded Sex Assigned at Not on file Gender Identity Not on file Sexual Orientation Not on file Plan of Treatment Health Maintenance Due Date Last Done Comments Depression Screen 1937 DTaP/Tdap/Td series (1 - Tdap) 1958 Shingles Vaccine (1 of 2) 1987 Bone Densitometry (Dexa) Screening 2002 Pneumococcal 65+ years (1 of 1 - PCV) 2002 COVID-19 Vaccine ( - 2022-24 season) 2023 Flu Vaccine (#1) 04/07/2024 Care Teams Programming Specialist Relationship Specialty Start Date End Date Nicolás Gallagher MD [facility] [place] [address] PCP - General Nephrology 10/27/20
--- OUTSIDE RECORDS SUMMARY | 2024-04-26 02:18 | XMS_ITS | Encounter Summary ---
Author Organization [facility] [place] [address] Care Team Providers Care Civil Cadd Technician Name Role Phone Uyen Gerard MD Primary Care Provider [phone] Encounter Details Date Type Department Care Team (Latest Contact Info) Description 01/27/2024 8:48 AM EDT - 01/27/2024 11:59 PM EDT Hospital Encounter [place] [address] Bronchiectasis without complication Discharge Disposition: Home Social History Tobacco Use Types Packs/Day Years Used Date Smoking Tobacco: Never Smokeless Tobacco: Never Alcohol Use Standard Drinks/Week Comments Yes 7 (1 standard drink = 0.6 oz pur e alcohol) Sex and Gender Information Value Date Recorded Sex Assigned at Female 03/31/2021 2:10 PM EDT Gender Identity Female 01/18/2024 2:59 PM EDT Sexual Orientation Not on file documented as of this encounter Medications at Time of Discharge Medication Sig Dispensed Refills Start Date End Date dorzolamide (Trusopt) 2 % Drops Place into both eyes 2 times daily. 09/30/2023 fluticasone mlrwfrk-owxgrieezurs-dn lanteroL (Trelegy Ellipta) 100-62.5-25 mcg inhaler (DPI) daily. 02/20/2020 levalbuteroL (Xopenex HFA) 45 mcg/actuation inhaler (HFA) Inhale 1-2 puffs into the lungs every 4 hours as needed. 1 each 3 01/20/2024 levalbuteroL (Xopenex) 0.63 mg/3 mL Solution for NebulizationIndications :Interstitial lung disease,Bronchiectasis without complication Take 3 mLs by nebulization 2 times daily. 540 mL 1 01/02/2024 spironolactone (Aldactone) 25 mg tabletIndications:Essen tial hypertension Take 0.5 tablets by mouth daily. 45 tablet 3 09/25/2023 latanoprost (Xalatan) 0.005 % Drops Place 1 drop into both eyes nightly. 12/17/2021 apixaban (Eliquis) 5 mg Tablet Take 5 mg by mouth 2 times daily. metoprolol succinate XL (Toprol-XL) 50 mg Tablet Sustained Release 24 hr Take by mouth. 75 MG-AM, 50 MG-PM flecainide (TAMBOCOR) 50 mg Tablet Take 50 mg by mouth 2 times daily. ascorbic acid, vitamin C, (VITAMIN C) 1,000 mg Tablet Take by mouth daily. amLODIPine (NORVASC) 5 mg Tablet Take 5 mg by mouth daily. losartan (COZAAR) 50 mg Tablet Take 100 mg by mouth nightly. Calcium 500 mg Tab Take 2 gummies by mouth daily. atorvastatin (LIPITOR) 10 mg tablet Take 10 mg by mouth daily. cholecalciferol, Vitamin D3, 25 mcg (1,000 unit) Capsule Take 2,000 Units by mouth daily. SUMAtriptan (Imitrex) 25 mg Tablet Take 50 mg by mouth as needed. DOCUSATE SODIUM (COLACE ORAL) 01/02/2009 documented as of this encounter Plan of Treatment Upcoming Encounters Date Type Department Care Team (Late st Contact Info) Description 05/18/2024 4:30 PM EDT Office [place] [phone] Carmelina Donaldson MD [facility] [place] [address] 05/31/2024 1:00 PM EDT Appointment [place] [phone] documented as of this encounter Procedures Procedure Name Priority Date/Time Associated Diagnosis Comments COMMON PULMONARY FUNCTION TEST Routine 01/27/2024 12:00 AM EDT Bronchiectasis without complication documented in this encounter Results * Common Pulmonary Function Test (01/27/2024 12:00 [...] Carmelina Donaldson MD PFT ORDERABLES COMPAS PFT documented in this encounter Visit Diagnoses Diagnosis Bronchiectasis without complication Bronchiectasis without acute exacerbation documented in this encounter Care Teams Civil Cadd Technician Relationship Specialty Start Date End Date Uyen Gerard MD [facility] [address] [place] [address] PCP - General 07/01/13 documented as of this encounter
--- OUTSIDE RECORDS SUMMARY | 2024-04-26 02:19 | XMS_ITS | Encounter Summary ---
Author Organization [facility] [place] [address] Care Team Providers Care Silica Mixer Operator Name Role Phone Uyen Gerard MD Primary Care Provider [phone] Encounter Details Date Type Department Care Team (Latest Contact Info) Description 03/02/2023 4:30 PM EDT Office Visit [place] [address] Manuel Ricks MD [facility] [place] [address] Stage 3a chronic kidney disease; Primary hypertension Social History Tobacco Use Types Packs/Day Years [...] Sign Reading Time Taken Comments Blood Pressure 112/55 03/02/2023 4:10 PM EDT Pulse 68 03/02/2023 4:10 PM EDT Temperature - - Respiratory Rate - - Oxygen Saturation - - Inhaled Oxygen Concentration - - Weight 59 kg (130 lb) 03/02/2023 4:10 PM EDT Height 160 cm (5' 3) 03/02/2023 4:10 PM EDT Body Mass Index 23.03 03/02/2023 4:10 PM EDT documented in this encounter Progress Notes * Manuel Ricks MD - 03/02/2023 4:30 PM EDT Nephrology/Hypertension Clinic Follow-up Note [id number] ID: 88 y.o.year-old female for follow up of CKD G2-3a/A1; prior right nephrectomy Past Medical History: Past Medical History: Diagnosis Date COPD (chronic obstructive pulmonary disease) 06/02/2011 Hypertension 06/02/2011 PPD positive 1960 Never treated Rash Renal cell cancer 06/02/2011 Patient Active Problem List Diagnosis Code Hypertension I10 Renal cell cancer C64.9 COPD (chronic obstructive pulmonary disease) J44.9 Stucco keratosis L85.1 Seborrheic keratosis L82.1 Dermal nevus of other site D23.9 Solar lentigo L81.4 Chronic renal insufficiency, stage III (moderate) N18.30 Current use of senior living 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 540 mL 1 spironolactone (Aldactone) 25 mg Tablet TAKE 1 TABLET DAILY 90 tablet 3 Alphagan P 0.1 % Drops Place into both eyes 2 times daily. latanoprost (Xalatan) 0.005 % Drops Place 1 drop into both eyes nightly. omega-3 fatty acids/fish oil (OMEGA 3 FISH OIL ORAL) Take by mouth daily. apixaban (Eliquis) 5 mg Tablet Take 5 mg by mouth 2 times daily. metoprolol succinate XL (Toprol-XL) 50 mg Tablet Sustained Release 24 hr Take by mouth. 75 MG-AM, 50 MG-PM fluticasone/umeclidin/vilanter (TRELEGY ELLIPTA INHL) Inhale into the lungs daily. flecainide (TAMBOCOR) 50 mg Tablet Take 50 mg by mouth 2 times daily. levalbuterol (XOPENEX HFA) 45 mcg/actuation HFA Aerosol Inhaler Inhale 1-2 puffs into the lungs every 4 hours as needed. ascorbic acid, vitamin C, (VITAMIN C) 1,000 [...] mouth as needed. DOCUSATE SODIUM (COLACE ORAL) [DISCONTINUED] doxycycline (VIBRA-TABS) 100 mg Tablet TAKE 1 TABLET BY MOUTH TWO TIMES A DAY FOR 5 DAYS [DISCONTINUED] predniSONE (Deltasone) 20 mg Tablet Take 40 mg by mouth daily. No current facility-administered medications on file prior to visit. Allergies Allergen Reactions Codeine Phosphate S: here for routine f/u Covid around July, took paxlovid, recovered uneventfully had a lot of gi stuff with covid Then had bad cold after a cruise to [place] in Oct treated with abx and prednisone and nebulizer with good success. Appetite good Weight down a bit but has leveled off Breathing back to normal (mild MCKENNA going up stairs with arms full) No pnd or orthopnea Prone to mild right ankle edema No n/v No urinary sx except nocturia x 2-3 Checks BP at home now and then - runs low (like today) Pulse usually 60s But had two bouts of afib with HR 100s; she remains on apixaban Resolved spontaneously O: Patient Vitals for the past 24 hrs: Pulse BP 03/02/23 1610 68 112/55 Wt. 59 kg General: looks well Eye: clear ENT: op moist Neck: jvp normal CV: rrr c/w sr Resp: scattered very soft rhonchi and squeaks, good air movememnt Abd: soft, nt, nabs, no bruits Ext: 1+ pretib edema on right, tr on left Skin: no rash Neuro: nonfocal motor Psych: normal mood and affect Labs: Recent Results (from the past 24 hour(s)) Phosphorus Result Value Ref Range Phosphorus 3.9 2.5 - 4.5 mg/dL PTH Result Value Ref Range PTH 48 15 - 65 pg/mL Comprehensive metabolic panel (non-fasting) Result Value Ref Range Glucose Lvl 90 65 - 199 mg/dL BUN 30 (H) 8 - 18 mg/dL Creatinine 1.17 0.70 - 1.20 mg/dL Sodium 134 (L) 135 - 145 mmol/L Potassium 4.6 3.5 - 5.0 mmol/L Chloride 96 (L) 98 - 107 mmol/L CO2 27 22 - 31 mmol/L Anion Gap 11 5 - 15 mmol/L Calcium 9.7 8.5 - 10.5 mg/dL Total Protein 8.3 (H) 6.1 - 8.0 g/dL Albumin 4.2 3.2 - 5.2 g/dL AST 24 0 - 30 unit/L ALT 14 0 - 30 unit/L Alk Phos 89 35 - 105 unit/L Total Bilirubin 0.4 0.2 - 1.3 mg/dL Estimated GFR 45 (L) >=60 mL/min/1.73 m?? Magnesium Result Value Ref Range Magnesium 0.89 0.69 - 1.07 mmol/L Osmolality Result Value Ref Range Osmolality 288 275 - 295 mOsm/kg Protein Electrophoresis, serum Result Value Ref Range Total Prot Elec 7.8 6.1 - 8.0 g/dL Hemogram Result Value Ref Range WBC 9.6 (H) 4.0 - 9.5 x10(3)/mcL RBC 4.47 4.00 - 5.21 x10(6)/mcL Hemoglobin 13.4 11.7 - 15.5 g/dL Hematocrit 41.0 35.7 - 45.8 % MCV 91.7 82.6 - 94.4 fL MCH 30.0 27.1 - 32.0 pg MCHC 32.7 31.7 - 35.0 g/dL Platelets 269 145 - 357 x10(3)/mcL RDWSD 43.4 37.0 - 46.0 fL RDWCV 12.9 11.5 - 14.1 % MPV 9.2 7.6 - 12.9 fL nRBC % Auto 0.0 % nRBC Abs Auto 0.000 0.000 - 0.000 x10(3)/mcL Differential, Automated Result Value Ref Range Neutrophils % 62.9 % Neutr Abs (ANC) 6.02 1.70 - 6.10 x10(3)/mcL Lymphocytes % 21.6 % Lymphocytes Abs 2.1 0.9 - 3.2 x10(3)/mcL Monocytes % 12.1 % Monocyte Abs 1.2 (H) 0.3 - 0.9 x10(3)/mcL Eosinophils % 1.8 % Eosinophils Abs 0.2 0.0 - 0.4 x10(3)/mcL Basophils % 0.9 % Basophils Abs 0.1 0.0 - 0.1 x10(3)/mcL Immature Gran % 0.70 % Miriam Gran Abs 0.07 (H) 0.00 - 0.04 x10(3)/mcL Lab Results Component Value Date WBC 9.6 (H) 03/02/2023 RBC 4.47 03/02/2023 HGB 13.4 03/02/2023 HCT 41.0 03/02/2023 MCV 91.7 03/02/2023 MCH 30.0 03/02/2023 MCHC 32.7 03/02/2023 PLATELET 269 03/02/2023 RDWCV 12.9 03/02/2023 Chemistry Component Value Date/Time NA 134 (L) 03/02/2023 1502 K 4.6 03/02/2023 1502 CL 96 (L) 03/02/2023 1502 CO2 27 03/02/2023 1502 BUN 30 (H) 03/02/2023 1502 CREATININE 1.17 03/02/2023 1502 Component Value Date/Time CALCIUM 9.7 03/02/2023 1502 ALKPHOS 89 03/02/2023 1502 AST 24 03/02/2023 1502 ALT 14 03/02/2023 1502 BILITOT 0.4 03/02/2023 1502 Lab Results Component Value Date PHOS 3.9 03/02/2023 Recent Labs 03/02/23 1502 ALBUMIN 4.2 Latest Reference Range & Units 03/02/23 15:00 U Protein Ran 0 - 12 mg/dL 8 U Sodium mmol/L 50 A/P: CKD stage G3a/A1 prior nephrectomy and htn. Absence of proteinuria is a favorable prognostic sign. Planning: cont to monitor Proteinuria: minimal on angiotensin receptor aftab and spironolactone. BP/volume status: may be overcontrolled and recently had high K; she will measure bid x 1 week. If all bps <<120 sys we will hold spironolactone and see how she does with less medication. She may retain a little fluid if we stop the diuretic but that should reequilibrate. Diabetes control: n/a Lytes/acid-base: mild stable low Na; will continue to monitor periodically. Avoid forcing fluids but can consume up to 2 L daily, particularly if working outside. Urine osmolality requested but notperformed? She either has a reset osmostat or a very mild form of SIADH (perhaps related to her underlying inflammatory lung disease). By report she had recent hyperkalemia, but her potassium today is normal. If we do end up stopping or reducing her spironolactone, and/or her ARB, she can likely liberalize her diet. Note the combination of mild hyponatremia, tendency to hyperkalemia, and relatively low blood pressure could suggesthypoadrenalism. She has been on intermittent steroids for her pulmonary disease, but is unlikely tohave adrenal suppression and iatrogenic adrenal suppression should not affect electrolytes. Impossible to make a diagnosis of mineralocorticoid deficiency while on spironolactone, but we will keep this in mind in the future. MBD: normal PTH, ca, phos and D Nutrition: encouraged healthy diet, she has list of K content of foods from pcp and is avoiding high K options for now Anemia: n/a Other : copd recurrent pulm infections, doing ok for now F/u 6 months and prn Low anion gap, checking for paraprotein. Total protein relatively high but ratio of globulin to albumin unremarkable. Await results. CC: Uyen Gerard MD [facility] [address] [place] [address] documented in this encounter Plan of Treatment Upcoming Encounters Date Type Department Care Team (Late st Contact Info) Description 05/18/2024 4:30 PM EDT Office [place] [address] Carmelina Donaldson MD [facility] [place] [address] 05/31/2024 1:00 PM EDT [place]ointment [place] [address] documented as of this encounter Visit Diagnoses Diagnosis Stage 3a chronic kidney disease Primary hypertension Unspecified essential hypertension documented in this encounter Care Teams Silica Mixer Operator Relationship Specialty Start Date End Date Uyen Gerard MD [facility] [address] [place] [address] PCP - General 07/01/13 documented as of this encounter
--- OUTSIDE RECORDS SUMMARY | 2024-04-26 02:19 | XMS_ITS | Encounter Summary ---
Author Organization [facility] [place] [address] Care Team Providers Care Pack Changer Name Role Phone Uyen Gerard MD Primary Care Provider [phone] Reason for Visit * Reason Onset Date Comments Medication Refill 09/11/2022 Encounter Details Date Type Department Care Team (Late st Contact Info) Description 09/11/2022 Refill [place] [phone] Carmelina Donaldson MD [facility] [place] [address] Interstitial lung disease; Bronchiectasis without complication Social History Tobacco Use Types Packs/Day Years [...] 4:30 PM EDT Office [place] [phone] Carmelina Donaldson MD [facility] [place] [address] 05/31/2024 1:00 PM EDT Appointment [place] [address] documented as of this encounter Visit Diagnoses Diagnosis Interstitial lung disease Postinflammatory pulmonary fibrosis Bronchiectasis without complication Bronchiectasis without acute exacerbation documented in this encounter Care Teams Pack Changer Relationship Specialty Start Date End Date Uyen Gerard MD [facility] [address] [facility] [address] [place] [address] PCP - General 07/01/13 documented as of this encounter
--- OUTSIDE RECORDS SUMMARY | 2024-04-26 02:19 | XMS_ITS | Encounter Summary ---
Author Organization formerly [place] [address] Care Team Providers Care Court Recorder Name Role Phone Uyen Gerard MD Primary Care Provider [phone] Reason for Visit * Reason Comments Medication Refill Encounter Details Date Type Department Care Team (Late st Contact Info) Description 03/17/2022 Refill [place] [address] Manuel Ricks MD [facility] [place] [address] Essential hypertension Social History Tobacco Use Types Packs/Day [...] documented as of this encounter Miscellaneous Notes * Telephone Encounter - Manuel Ricks MD - 03/17/2022 1:11 PM EDT To have repeat lab work soon regarding low Na. If not improving will need to stop spironolactone but will refill for now. documented in this encounter Plan of Treatment Upcoming Encounters Date Type Department Care Team (Late st Contact Info) Description 05/18/2024 4:30 PM EDT [place] [address] Carmelina Donaldson MD [facility] [address] [place] [address] 05/31/2024 1:00 PM EDT [place] [address] documented as of this encounter Visit Diagnoses Diagnosis Essential hypertension Unspecified essential hypertension documented in this encounter Care Teams Court Recorder Relationship Specialty Start Date End Date Uyen Gerard MD [address] [place] [address] [address] PCP - General 07/01/13 documented as of this encounter
--- OUTSIDE RECORDS SUMMARY | 2024-04-26 02:19 | XMS_ITS | Encounter Summary ---
Author Organization Formerly [facility] [place] [address] Care Team Providers Care Tube Teller Name Role Phone Uyen Gerard MD Primary Care Provider [phone] Reason for Visit * Reason Comments New Med Request Encounter Details Date Type Department Care Team (Late st Contact Info) Description 09/25/2023 Refill [place] [phone] [facility] [place] [address] Essential hypertension Social History Tobacco Use Types [...] 4:30 PM EDT [place] [phone] [facility] [place] [address] 05/31/2024 1:00 PM EDT [place] [address] documented as of this encounter Visit Diagnoses Diagnosis Essential hypertension Unspecified essential hypertension documented in this encounter Care Teams Tube Teller Relationship Specialty Start Date End Date Uyen Gerard MD [address] [place] [address] PCP - General 07/01/13 documented as of this encounter
--- OUTSIDE RECORDS SUMMARY | 2024-04-26 02:19 | XMS_ITS | Encounter Summary ---
Author Organization Formerly [facility] [place] [address] Care Team Providers Care Parakeet Raiser Name Role Phone Uyen Gerard MD Primary Care Provider [phone] Encounter Details Date Type Department Care Team (Late st Contact Info) Description 04/01/2022 Ancillary Procedure [place] [address] Uyen Gerard MD [facility] [address] [facility] [address] [place] [address] Social History Tobacco Use Types Packs/Day Years [...] 4:30 PM EDT Office [place] [address] Carmelina Donaldson MD [facility] [place] [address] 05/31/2024 1:00 PM EDT [place] [address] documented as of this encounter Procedures Procedure Name Priority Date/Time Associated Diagnosis Comments FILM LIBRARY STORAGE ONLY CT CHEST Routine 04/01/2022 12:00 AM EDT documented in this encounter Results * Film Library- Storage Only CT Chest (04/01/2022 12:00 AM EDT) Narrative [facility] - 04/02/2022 10:37 AM EDT This exam is auto-finalizing. It's purpose is for storage only. Uyen Gerard MD IMG FILM LIBRARY ORD ERABLES [place], [place] documented in this encounter Visit Diagnoses Not on filedocumented in this encounter Care Teams Parakeet Raiser Relationship Specialty Start Date End Date Uyen Gerard MD [facility] [address] [place] [address] PCP - General 07/01/13 documented as of this encounter
--- OUTSIDE RECORDS SUMMARY | 2024-04-26 02:19 | XMS_ITS | Encounter Summary ---
Author Organization [facility] [place] [address] Care Team Providers Care Loading Supervisor Name Role Phone Uyen Gerard MD Primary Care Provider [phone] Encounter Details Date Type Department Care Team (Latest Contact Info) Description 07/05/2023 Travel Social History Tobacco Use Types Packs/Day [...] 4:30 PM EDT Office Visit [place] [phone] Carmelina Donaldson MD [facility] [place] [address] 05/31/2024 1:00 PM EDT Appointment [place] [address] documented as of this encounter Visit Diagnoses Not on filedocumented in this encounter Care Teams Loading Supervisor Relationship Specialty Start Date End Date Uyen Gerard MD [facility] [address] [place] [address] PCP - General 07/01/13 documented as of this encounter
--- OUTSIDE RECORDS SUMMARY | 2024-04-26 02:19 | XMS_ITS | Encounter Summary ---
Author Organization [facility] [place] [address] Care Team Providers Care Manager Simulation Name Role Phone Uyen Gerard MD Primary Care Provider [phone] Reason for Referral * Diagnostic Test (Routine) - Closed Specialty Diagnoses / Procedures Referred By Conttaj callahan Referred To Contact Radiology Diagnoses Pulmonary nodule Procedures CT Chest wo Contrast (Generic) Carmelina Donaldson MD [facility] [place] [address] [facility] [place] [address] Referral ID Status Reason Start Date Expiration Date V isits Requested Visits Authorized [id number] Closed Specialty Service Requested 08/06/2022 02/04/2024 1 1 Encounter Details Date Type Department Care Team (Late st Contact Info) Description 08/06/2022 4:30 PM EST Office Visit [place] [address] Carmelina Donaldson MD [facility] [place] [address] Pulmonary nodule; Bronchiectasis without complication Social History Tobacco Use [...] Sign Reading Time Taken Comments Blood Pressure 153/67 08/06/2022 4:00 PM EST Pulse 72 08/06/2022 4:00 PM EST Temperature 36.1 ??C (97 ??F) 08/06/2022 4:00 PM EST Respiratory Rate 16 08/06/2022 4:00 PM EST Oxygen Saturation 99% 08/06/2022 4:00 PM EST Inhaled Oxygen Concentration - - Weight 57 kg (125 lb 9.6 oz) 08/06/2022 4:00 PM EST Height 162.6 cm (5' 4) 08/06/2022 4:00 PM EST Body Mass Index 21.56 08/06/2022 4:00 PM EST documented in this encounter Patient Instructions * Patient Instructions* Nahed Morse RT - 08/06/2022 4:30 PM EST Nebulizer : Levalbuterol nebulizer in the morning and evening Cleaning instructions for nebulizer kit to be done a minimum of daily: - soak nebulizer parts in hot soapy ( dish detergent) water for 10 minutes - Rinse all parts well with hot water -Air dry overnight Disinfecting instruction for nebulizer kit to be done weekly: - soak nebulizer parts in a solution of 1 part distilled white vinegar and 3 parts hot water for 1 hour -Rinse all parts well with hot water - Air dry or dry with a clean, lint free cloth Or Place in Top Rack of Gun Fertilizer weekly. Non-disposable nebulizer replace every 6 months Cleaning instruction for the vPEP done at least daily or after each use: - Take off the mouth-piece. - Lift off the clear cover. - Remove the flapper valve. - Open the drain cap on the reverse side of the vPEP during cleaning. (During use keep the drain cap on) Clean the vPEP in soap and water - Soak in warm soapy water for 15 minutes, move them around from time to time, and rinse with sterile water. - Allow to air dry. - Once it is thoroughly dry, reassemble the device. (note: the flapper valve points to the bottom of the vPEP) OR 2. Clean the vPEP in the health care social worker. - Put in a basket and place on the top rack of the health care social worker. - Wash on a normal cycle with health care social worker detergent. - Shake off any water. - Leave to dry before you put them back together. Disinfecting instructions for the vPEP done at least weekly: - Soak in 3% Hydrogen Peroxide (commonly carried by your local pharmacy) for 30 minutes. - Rinse well in sterile water. How to Make Sterile Water - Put filtered water in a clean fernando. (Filtered water can come from a refrigerator or commercial filter (for example, Rachel). Some bottled water is filtered (Read the label)) - Bring the water to a gentle boil. Put a lid on the fernando. - Boil the water for 5 minutes. - After it has cooled down, use the water right away, or put it in sterilized container. Do not useice to cool down the water. How to Sterilize a Container - Choose a container that can be sterilized. (You cannot use aluminum cans or paper cartons. They melt or fall apart.) - Put the container in a fernando of boiling water for 10 minutes. OR - Clean the container in the health care social worker on the full cycle (not a short wash). BREATHING EXERCISES: Shahid Coughing Technique to Jerri Velasco Take a slow deep breath in through your nose or mouth. Hold the breath for a moment. To exhale, open your mouth and make a ???shahid?? sound in your throat. Shahid 2-3 times as you exhale. Cough Stacking Technique to Jerri Velasco Breathe in deeply, breathe out partway Breathe in again deeply, breathe out partway Then one more deep breath in. Then cough or shahid cough VPEP Inspire for Life - Positive Expiratory Pressure (PEP) Device to Jerri Velasco Initial Settings: 1 A. Take a slow, deep breath. B. Hold your breath for 2-3 seconds. C. Breathe out through the mouth-piece with force. D. Keep taking deep breaths in -- and forceful breaths out through your vPEP -- 5 times. E After at least 5 breaths in and out, do 2 or 3 ???shahid or stacking coughs??? to clear your lungs. Make sure your hand does not cover the end of the vPEP with exhalation port. Plan to do VPEP after levalbuterol nebulizer in the morning ( up to 2-3 cycles , And then in the evening after levalbuterol ( up to 2-3 cycles). You may use the VPEP in between as needed documented in this encounter Progress Notes * Carmelina Donaldson MD - 08/06/2022 4:30 PM EST Images from the original note were not included. [facility] Section of Pulmonary and Critical Care Medicine Outpatient Follow Up Date of Encounter: 08/06/2022 History of Present Illness: Jerri Velasco is a pleasant 87 year old woman who has been experiencing progressive dyspnea with cough for the past several years. She was diagnosed with ILD with traction bronchiectasis and has been on Trelegy with Xopenex but noticed progressive exertional dyspnea and was initially seen by me in 2020. She underwent a repeat CT which showed tree-in-bud with bronchiec tasis as well as pulmonary nodules. We discussed a bronchoscopy to assess for MAC or fungi but she did not want a procedure. She had a repeat CT that showed stability. She returns today complaining of more dyspnea. She used to be able to walk up hill and climb stairs easily but she is now much moreeasily winded when walking up an incline. She is able to perform her ADLs without dyspnea. She denies fevers or chills but has occasional night sweats. She has not lost weight. She feels much more tired overall. She has nonproductive cough as well which occurs throughout the day and at night. She does not feel that the inhaled medications help significantly. She has a significant mold exposure atwork due to a pipe leak and was also exposed to asbestos in her building. However IgE was normal. She denies joint swelling or redness, skin rash, or GERD. Current Medications: Current Outpatient Medications on File Prior to Visit Medication Sig Dispense Refill ??? spironolactone (Aldactone) 25 mg Tablet TAKE 1 TABLET DAILY 90 tablet 3 ??? Alphagan P 0.1 % Drops Place [...] Take 40 mg by mouth daily. ??? omega-3 fatty acids/fish oil (OMEGA 3 [...] Aerosol Inhaler Inhale 1-2 puffs into the lungsevery 4 hours as needed. ??? ascorbic acid, [...] shortness of breath. Negative for hemoptysis, sputum productionand wheezing. Endocrine: Negative for cold intolerance and [...] I personally reviewed her CT scan from the summer which showed some interstitial thickening with more diffuse tree in bud opacities. There were two moderate sized pleural based nodules whichare stable. SPIROMETRY: I personally reviewed her PFTs from last visit which showed mild airflow obstruction with air trapping and a mildly reduced DLCO. PFT Results Flowsheet Row Office Visit from 03/31/2014 in Pulmonology at [facility] Office Visit from 09/16/2013 in Pulmonology at [facility] Office Visit from 03/11/2013 in Pulmonology at [facility] PFT Results Peak Flow 300 L/min 275 L/min 300 L/min Additional PFT Data (if needed) CULTURES: PERTINENT LABS: Metabolic Parameters Lab Results Component Value Date NA 127 (L) 02/14/2022 K 4.8 02/14/2022 CL 89 (L) 02/14/2022 CO2 30 02/14/2022 ANIONGAP 8 02/14/2022 BUN 29 (H) 02/14/2022 CREATININE 0.98 02/14/2022 GLUCOSE 94 02/14/2022 CALCIUM 9.6 02/14/2022 MAGNESIUM 0.94 02/14/2022 PHOS 2.9 02/14/2022 Hematologic Parameters Lab Results Component Value Date WBC 14.4 (H) 02/14/2022 NEUTOPHILPCT 74.1 02/14/2022 IMMGRANPCT 5.60 02/14/2022 LYMPHOPCT 8.5 02/14/2022 MONOPCT 11.7 02/14/2022 BASOPCT 0.1 02/14/2022 EOSPCT 0.0 02/14/2022 HGB 14.6 02/14/2022 HCT 43.1 02/14/2022 RBC 4.88 02/14/2022 MCV 88.3 02/14/2022 MCHC 33.9 02/14/2022 RDWSD 41.4 02/14/2022 PLATELET 400 (H) 02/14/2022 LFT and Associated Parameters Lab Results Component Value Date AST 29 07/01/2013 ALT 22 07/01/2013 ALKPHOS 65 07/01/2013 BILITOT 0.4 07/01/2013 BILIDIR 0.1 07/01/2013 ALBUMIN 4.2 02/14/2022 Diabetes Laboratory Tests Lab Results Component Value Date MICROALBUR 9.3 02/14/2022 Impression / Plan of Care: Jerri Velasco is a delightful 87 year old woman with progressive exertional dyspnea. Her CT scan shows an inflammatory process which progressed between 2019 and 2020 but appears stable on imaging since then. PFTs show airflow obstruction with air trapping. Although the etiology is not clear, the imaging abnormalities appear to be secondary to an infectious or inflammatory process with mucus plugging. We again discussed a bronchoscopy but she prefers not to do this. We discussed mucus plugging and the utility of ACT. She was provided with an acapella and instruction with Nahed. She will use this after nebulized albuterol twice daily to see if this allows her to clear some of the mucus and improve her symptoms. If this does not help, we can consider other nebulized medications to help her bring up mucus. I will plan to see her back when they return to [place] in December with a repeat CT but can discuss changes in management by phone throughout the winter. I spent 40 minutes in the care of this patient including review of notes and tests, face to face encounter, and documentation. CARMELINA DONALDSON MD 08/06/2022 4:33 PM * LeniwesleyNahed callahan, RT - 08/06/2022 4:30 PM EST BREATHING EXERCISES: 15 minutes - Introduced concept of Shahid Coughing Technique to Jerri Velasco ??? Take a slow deep breath in through your nose or mouth. ??? Hold the breath for a moment. ??? To exhale, open your mouth and make a ???shahid?? sound in your throat. ??? Shahid 2-3 times as you exhale. She was able to demonstrate shahid coughing technique. Plan to utilize this coughing technique after her VPEP and as needed. - Introduced concept of Cough Stacking Technique to Jerri Velasco ??? Breathe in deeply, breathe out partway ??? Breathe in again deeply, breathe out partway ??? Then one more deep breath in. ??? Then cough or shahid cough She was able to demonstrate cough stacking technique with strong cough. Plan to utilize this coughing technique after her VPEP and as needed. - Introduced the VPEP Inspire for Life - Positive Expiratory Pressure (PEP) Device to Jerri Velasco Provided Jerri [facility] VPEP Inspire for Life Initial Settings: Level 1 A. Take a slow, deep breath. B. Hold your breath for 2-3 seconds. C. Breathe out through the mouth-piece with force. D. Keep taking deep breaths in -- and forceful breaths out through your vPEP -- 5 times. E. After at least 5 breaths in and out, do 2 or 3 ???shahid or stacking coughs??? to clear your lungs. REPEAT step two to four times Make sure your hand does not cover the end of the vPEP with exhalation port. Plan to do VPEP after nebulizer in the morning, And then in the evening after Nebulizer. Respiratory regimen: levalbuterol nebulizer morning and evening Xopenex(levalbuterol) HFA 1-2 puffs every 4-6 hours as needed Cleaning instructions for nebulizer kit to be done a minimum of daily: She has been doing this. - soak nebulizer parts in hot soapy ( dish detergent) water for 10 minutes - Rinse all parts well with hot water -Air dry overnight Disinfecting instruction for nebulizer kit to be done weekly:( she wasn't aware of this) - soak nebulizer parts in a solution of 1 part distilled white vinegar and 3 parts hot water for 1 hour -Rinse all parts well with hot water - Air dry or dry with a clean, lint free cloth OR place in top rack of health care social worker and wash. Non-disposable nebulizer replace every 6 months( provided new nondisposable nebulizer kit. Current kit is approximately 3 years old. Plan for order to [facility] for 2 non disposable nebulizer kits every 6 months.) Cleaning instruction for the vPEP done at least daily or after each use: - Take off the mouth-piece. - Lift off the clear cover. - Remove the flapper valve. - Open the drain cap on the reverse side of the vPEP during cleaning. (During use keep the drain cap on) 1. Clean the vPEP in soap and water - Soak in warm soapy water for 15 minutes, move them around from time to time, and rinse with sterile water. - Allow to air dry. - Once it is thoroughly dry, reassemble the device. (note: the flapper valve points to the bottom of the vPEP) OR 2. Clean the vPEP in the health care social worker. - Put in a basket and place on the top rack of the health care social worker. - Wash on a normal cycle with health care social worker detergent. - Shake off any water. - Leave to dry before you put them back together. Disinfecting instructions for the vPEP done at least weekly: - Soak in 3% Hydrogen Peroxide (commonly carried by your local pharmacy) for 30 minutes. - Rinse well in sterile water. How to Make Sterile Water - Put filtered water in a clean fernando. (Filtered water can come from a refrigerator or commercial filter (for example, Rachel). Some bottled water is filtered (Read the label)) - Bring the water to a gentle boil. Put a lid on the fernando. - Boil the water for 5 minutes. - After it has cooled down, use the water right away, or put it in sterilized container. Do not useice to cool down the water. How to Sterilize a Container - Choose a container that can be sterilized. (You cannot use aluminum cans or paper cartons. They melt or fall apart.) - Put the container in a fernando of boiling water for 10 minutes. OR - Clean the container in the health care social worker on the full cycle (not a short wash). documented in this encounter Plan of Treatment Upcoming Encounters Date Type Department Care Team (Late st Contact Info) Description 05/18/2024 4:30 PM EDT Office Visit [place] [phone] Carmelina Donaldson MD [facility] [place] [address] 05/31/2024 1:00 PM EDT Appointment [place] [phone] documented as of this encounter Results * (ABNORMAL) CT Chest wo Contrast (Generic) (01/07/2023 12:27 PM EDT) Anatomical Region Laterality Modality Chest Computed Tomogra phy Impressions 01/07/2023 4:57 PM EDT 1. ??Stable pleural-based nodular opacity at the right lower lobe contiguous to the costophrenic sulcus. Stable peripheral pleural-based linear opacity at the left lower lobe costophrenic angle. 2. ??Stable bilateral bronchiectasis, wedge-shaped subpleural opacities posterior right upper lobe and biapical scarring. 3. ??Unexpected finding: New lingular and right middle lobe tree-in-bud nodularity reflects endobronchial infectious or inflammatory process. Thank you for letting us participate in the care of this patient. ??If you are a health care provider and have any questions regarding this report, please contact the number below. ??For patients who have questions please contact the health adult daycare coordinator that requested your imaging first. ? Electronically signed by: Marianne Foster MD, [facility] ([phone]), at 01/07/2023 4:57 PM Narrative 01/07/2023 4:57 PM EDT EXAMINATION: CT CHEST WO CONTRAST (GENERIC) CLINICAL HISTORY: Lung nodule, > 8mm TECHNIQUE: Helical CT of the chest without intravenous contrast administration. Thin-section reconstructions as well as coronal and sagittal reformatted images were generated. COMPARISON: April 01, 2022 FINDINGS: Pulmonary parenchyma: Stable biapical scarring. Stable reticulation. Stable wedge-shaped subpleural opacities at the posterior right upper lobe. Stable peripheral right upper lobe tubular nodular opacities with traction bronchiectasis. New lingular and right middle lobe tree-in-bud nodularity. Chronic scarring at the right middle lobe and lingula. Stable pleural-based nodular opacity at the right lower lobe measuring 11 x 19 mm, contiguous to the right costophrenic angle. Stable peripheral pleural-based linear opacity at the costophrenic angle left lower lobe. Airways: Stable bronchiectatic changes bilaterally. Pleura: No effusion. Lymph nodes: No enlarged lymphadenopathy. Heart and vasculature: Normal size of the heart. No significant pericardial effusion. Other mediastinal structures: Tiny hiatal hernia Upper abdomen: No significant findings Skeletal structures: Scoliosis. Degenerative changes. No suspicious lesions. Resulting Agency Comment Unexpected Finding Carmelina Donaldson MD IMG CT ORDERABLES documented in this encounter Visit Diagnoses Diagnosis Pulmonary nodule Solitary pulmonary nodule Bronchiectasis without complication Bronchiectasis without acute exacerbation Pulmonary nodule Solitary pulmonary nodule documented in this encounter Care Teams Manager Simulation Relationship Specialty Start Date End Date Uyen Gerard MD [address] [place] [address] PCP - General 07/01/13 documented as of this encounter
--- OUTSIDE RECORDS SUMMARY | 2024-04-26 02:19 | XMS_ITS | Encounter Summary ---
Author Organization [facility] [place] [address] Care Team Providers Care Software Recruiter Name Role Phone Uyen Gerard MD Primary Care Provider [phone] Encounter Details Date Type Department Care Team (Late st Contact Info) Description 09/09/2022 [place] [address] Carmelina Donaldson MD [facility] [place] [address] Interstitial lung disease; Bronchiectasis without complication Social [...] encounter Miscellaneous Notes * Telephone Encounter - Juan De Dios RN - 09/09/2022 2:21 PM EST Copied from CRM #[id number]. Topic: Specialty Dept CRMs - Generic Call >> Sep 09, 2022 1:42 PM Melissa Callejas wrote: Specialist: Dr Donaldson Relationship (if other than patient-full name): none Reason for Call: pt called asking if the script levalbuteroL (Xopenex) 0.63 mg/3 mL Solution for Nebulization [[id number]] is the one that she should be taking or the 1.25 mg. The pt is requesting that whichever script is correct, please order it through [facility]. Please call her to discuss ELIAZAR documented in this encounter Plan of Treatment Upcoming Encounters Date Type Department Care Team (Late st Contact Info) Description 05/18/2024 4:30 PM EDT Office [place] [address] Carmelina Donaldson MD [facility] [place] [address] 05/31/2024 1:00 PM EDT Appointment [place] [phone] documented as of this encounter Visit Diagnoses Diagnosis Interstitial lung disease Postinflammatory pulmonary fibrosis Bronchiectasis without complication Bronchiectasis without acute exacerbation documented in this encounter Care Teams Software Recruiter Relationship Specialty Start Date End Date Uyen Gerard MD [facility] [address] [place] [address] PCP - General 07/01/13 documented as of this encounter
--- OUTSIDE RECORDS SUMMARY | 2024-04-26 02:19 | XMS_ITS | Encounter Summary ---
Author Organization [facility] [place] [address] Care Team Providers Care Structural Architect Name Role Phone Uyen Gerard MD Primary Care Provider [phone] Encounter Details Date Type Department Care Team (Latest Contact Info) Description 03/02/2023 3:00 PM EDT Laboratory Appointment Lab [address] [place] [address] Stage 3a chronic kidney disease; Hyponatremia Social History Tobacco Use Types Packs/Day Years [...] 4:30 PM EDT Office [place] [address] Carmelina Donaldson MD [facility] [place] [address] 05/31/2024 1:00 PM EDT Appointment [place] [address] documented as of this encounter Procedures Procedure Name Priority Date/Time Associated Diagnosis Comments IMMUNOGLOBULIN FREE LIGHT CHAINS, SERUM STAT 03/02/2023 3:02 PM EDT Stage 3a chronic kidney disease Hyponatremia PTH STAT 03/02/2023 3:02 PM EDT Stage 3a chronic kidney disease Hyponatremia HEMOGRAM STAT 03/02/2023 3:02 PM EDT Stage 3a chronic kidney disease Hyponatremia DIFFERENTIAL, AUTOMATED STAT 03/02/20 3:02 PM EDT Stage 3a chronic kidney disease Hyponatremia CBC (WITH DIFF) STAT 03/02/2023 3:02 PM EDT Stage 3a chronic kidney disease Hyponatremia PROTEIN ELECTROPHORESIS, SERUM STAT 03/02/2023 3:02 PM EDT Stage 3a chronic kidney disease Hyponatremia PHOSPHORUS STAT 03/02/2023 3:02 PM EDT Stage 3a chronic kidney disease Hyponatremia OSMOLALITY STAT 03/02/2023 3:02 PM EDT Stage 3a chronic kidney disease Hyponatremia MAGNESIUM STAT 03/02/2023 3:02 PM EDT Stage 3a chronic kidney disease Hyponatremia COMPREHENSIVE METABOLIC PANEL STAT 03/02/2023 3:02 PM EDT Stage 3a chronic kidney disease Hyponatremia SODIUM, URINE, RANDOM STAT 03/02/2023 3:00 PM EDT Hyponatremia PROTEIN ELECTROPHORESIS, URINE, RANDOM STAT 03/02/2023 3:00 PM EDT Stage 3a chronic kidney disease Hyponatremia documented in this encounter Results * (ABNORMAL) Differential, Automated (03/02/2023 3:02 PM EDT) Neutrophil % 62.9 % [facility] Neutrophil Absolute 6.02 1.70 - 6.10 x10(3)/mc L [facility] Lymph % 21.6 % [facility] Lymphocytes Abs 2.1 0.9 - 3.2 x10(3)/mc L [facility] Monocyte % 12.1 % [facility] Monocyte Abs 1.2(H) 0.3 - 0.9 x10(3)/[facility] Eos % 1.8 % [facility] Eosinophils Abs 0.2 0.0 - 0.4 x10(3)/[facility] Basophil % 0.9 % [facility] Baso Absolute 0.1 0.0 - 0.1 x10(3)/[facility] Immature Gran % 0.70 % [facility] Comment: Immature granulocytes(IG's)percentage and absolute count will include metamyelocytes, myelocytes, and promyelocytes. Blood smears from CBCs yielding IG's will be scanned manually for concordance. If this scan disagrees with the automated IG or if promyelocytes are noted, a manual differential will be performed. Immature Gran Absolute 0.07(H) 0.00 - 0.04 x10(3)/[facility] Blood 03/02/2023 3:02 PM EDT 03/02/2023 3:11 PM EDT Narrative Resulting Agency Comment Spec In Lab Manuel A Block HEMATOLOGY ORDERABLE S [facility] [place] [address] * (ABNORMAL) Hemogram (03/02/2023 3:02 PM EDT) White Blood Cell 9.6(H) 4.0 - 9.5 x10(3)/ L [facility] Red Blood Cell 4.47 4.00 - 5.21 x10(6)/ L [facility] Hemoglobin 13.4 11.7 - 15.5 g/dL [facility] Hematocrit 41.0 35.7 - 45.8 % [facility] Mean Cell Volume 91.7 82.6 - 94.4 fL [facility] Mean Cell Hemoglobin 30.0 27.1 - 32.0 pg [facility] Mean Cell Hemoglobin Concentration 32.7 31.7 - 35.0 g/dL [facility] Platelet 269 145 - 357 x10(3)/mc L [facility] RDW Standard Deviation 43.4 37.0 - 46.0 fL [facility] RDW coefficient of variation 12.9 11.5 - 14.1 % [facility] Mean Platelet Volume 9.2 7.6 - 12.9 fL [facility] NRBC% auto 0.0 % [facility] NRBC Absolute 0.000 0.000 - 0.000 x10(3)/mc L [facility] Blood 03/02/2023 3:02 PM EDT 03/02/2023 3:11 PM EDT Narrative Resulting Agency Comment Spec In Lab Manuel Ricks MD HEMATOLOGY ORDERABLE S Performing Organization Address [facility] Co de Phone Number [facility] [place] [address] * (ABNORMAL) Free Light Chains, Serum (03/02/2023 3:02 PM EDT) [place] Free Light Chain 3.61(H) 0.72 - 2.75 mg/dL [facility] Lambda Free Light Chain 3.04(H) 0.57 - 2.15 mg/dL [facility] [place]/Lambda FLC Ratio 1.1875 0.4000 - 2.5800 [facility] Blood 03/02/2023 3:02 PM EDT 03/02/2023 3:11 PM EDT Narrative Resulting Agency Comment Spec In Lab Manuel Ricks MD CHEMISTRY ORDERABLES Performing Organization Address [facility] Co de Phone Number [facility] [place] [address] * (ABNORMAL) Protein Electrophoresis, serum (03/02/2023 3:02 PM EDT) Total Prot Electrophoresis 7.8 6.1 - 8.0 g/dL [facility] Albumin Electrophoresis 4.41 3.20 - 5.20 g/dL [facility] Alpha 1 Globulin 0.20 0.10 - 0.30 g/dL [facility] Alpha 2 Globulin 0.89 0.40 - 0.90 g/dL [facility] Beta Globulin 0.76 0.50 - 1.00 g/dL [facility] Gamma Globulin 1.54(H) 0.50 - 1.30 g/dL [facility] M1 Band None Detected None Detected [facility] Blood 03/02/2023 3:02 PM EDT 03/02/2023 3:11 PM EDT Narrative Resulting Agency Comment Spec In Lab Manuel Ricks MD CHEMISTRY ORDERABLES Performing Organization Address [facility] Co de Phone Number [facility] [place] [address] * Osmolality (03/02/2023 3:02 PM EDT) Osmolality 288 275 - 295 mOsm/kg [facility] Blood 03/02/2023 3:02 PM EDT 03/02/2023 3:11 PM EDT Narrative Resulting Agency Comment Spec In Lab Manuel Ricks MD CHEMISTRY ORDERABLES Performing Organization Address [facility] Co de Phone Number [facility] [place] [address] * Magnesium (03/02/2023 3:02 PM EDT) Magnesium 0.89 0.69 - 1.07 mmol/L [facility] Blood 03/02/2023 3:02 PM EDT 03/02/2023 3:11 PM EDT Narrative Resulting Agency Comment Spec In Lab Manuel Ricks MD CHEMISTRY ORDERABLES Performing Organization Address [facility] Co de Phone Number [facility] [place] [address] * (ABNORMAL) Comprehensive metabolic panel (non-fasting) (03/02/2023 3:02 PM EDT) Glucose 90 65 - 199 mg/dL [facility] Comment:Diabetes: >=200 mg/d L plus symptoms Blood Urea Nitrogen 30(H) 8 - 18 mg/dL [facility] Creatinine 1.17 0.70 - 1.20 mg/dL [facility] Sodium 134(L) 135 - 145 mmol/L [facility] Potassium 4.6 3.5 - 5.0 mmol/L [facility] Comment: Please note: ??Patients with WBC >100,000 may have falsely elevated Potassium levels. ??For accurate Potassium quantification in these patients send serum separator tube (gold top) for subsequent determinations. ??Contact the Clinical Chemistry Laboratory if there are any questions. Chloride 96(L) 98 - 107 mmol/L [facility] Carbon Dioxide 27 22 - 31 mmol/L [facility] Anion Gap 11 5 - 15 mmol/L [facility] Calcium 9.7 8.5 - 10.5 mg/dL [facility] Protein, Total 8.3(H) 6.1 - 8.0 g/dL [facility] Albumin 4.2 3.2 - 5.2 g/dL [facility] Aspartate Aminotransferase 24 0 - 30 unit/L [facility] Alanine Aminotransferase 14 0 - 30 unit/L [facility] Alkaline Phosphatase 89 35 - 105 unit/L [facility] Bilirubin, Total 0.4 0.2 - 1.3 mg/dL [facility] Est Glomerular Filtration Rate 45(L) >=60 mL/min/1. 73 m?? [facility] Comment: This patient's estimated GFR was [...] and symptoms in addition to eGFR. Blood 03/02/2023 3:02 PM EDT 03/02/2023 3:11 PM EDT Narrative Resulting Agency Comment Spec In Lab Manuel Ricks MD CHEMISTRY ORDERABLES [facility] [place] [address] * PTH (03/02/2023 3:02 PM EDT) Parathyroid Hormone 48 15 - 65 pg/mL [facility] Blood 03/02/2023 3:02 PM EDT 03/02/2023 3:11 PM EDT Narrative Resulting Agency Comment Spec In Lab Manuel Ricks MD CHEMISTRY ORDERABLES Performing Organization Address [facility] Co de Phone Number [facility] [place] [address] * Phosphorus (03/02/2023 3:02 PM EDT) Phosphorus 3.9 2.5 - 4.5 mg/dL [facility] Blood 03/02/2023 3:02 PM EDT 03/02/2023 3:11 PM EDT Narrative Resulting Agency Comment Spec In Lab Manuel Ricks MD CHEMISTRY ORDERABLES Performing Organization Address [facility] de Phone Number [facility] [place] [address] * Sodium, urine, random (03/02/2023 3:00 PM EDT) Sodium, Urine 50 mmol/L [facility] Urine 03/02/2023 3:00 PM EDT 03/02/2023 3:13 PM EDT Narrative Resulting Agency Comment Spec In Lab Manuel Ricks MD URINE ORDERABLES Performing Organization Address [facility] de Phone Number [facility] [place] [address] * Protein Electrophoresis, urine, random (03/02/2023 3:00 PM EDT) Protein, Urine 8 0 - 12 mg/dL [facility] U Albumin 38 % total [facility] Globulin, Urine 62 % total [facility] M1 Band, Urine None Detected [facility] UPEP Comments See Note [facility] Comment: There is no evidence of clonal free light chains in this patient's urine sample. Urine 03/02/2023 3:00 PM EDT 03/02/2023 3:13 PM EDT Narrative Resulting Agency Comment Spec In Lab Manuel A Block URINE ORDERABLES [facility] [place] [address] documented in this encounter Visit Diagnoses Diagnosis Stage 3a chronic kidney disease Hyponatremia Hyposmolality and/or hyponatremia documented in this encounter Care Teams Structural Architect Relationship Specialty Start Date End Date Uyen Gerard MD [address] [place] [address] PCP - General 07/01/13 documented as of this encounter
--- OUTSIDE RECORDS SUMMARY | 2024-04-26 02:19 | XMS_ITS | Encounter Summary ---
Author Organization [facility] [place] [address] Care Team Providers Care Print Decorator Name Role Phone Uyen Gerard MD Primary Care Provider [phone] Reason for Referral * Diagnostic Test (Routine) - Closed Specialty Diagnoses / Procedures Referred By Alicia callahan Referred To Contact Radiology Diagnoses Pulmonary nodule Procedures CT Chest wo Contrast (Generic) Carmelina Donaldson MD [facility] [place] [address] [facility] [place] [address] Referral ID Status Reason Start Date Expiration Date V isits Requested Visits Authorized [id number] Closed Specialty Service Requested 01/07/2023 07/10/2024 1 1 Encounter Details Date Type Department Care Team (Late st Contact Info) Description 01/07/2023 1:00 PM EDT [place] [address] Carmelina Donaldson MD [facility] [place] [address] Pulmonary nodule; Bronchiectasis without complication [...] Sign Reading Time Taken Comments Blood Pressure 143/69 01/07/2023 12:46 PM EDT Pulse 74 01/07/2023 12:46 PM EDT Temperature 36.5 ??C (97.7 ??F) 01/07/2023 12:46 PM E DT Respiratory Rate 18 01/07/2023 12:46 PM EDT Oxygen Saturation 96% 01/07/2023 12:46 PM EDT Inhaled Oxygen Concentration - - Weight 60.3 kg (133 lb) 01/07/2023 12:46 PM EDT Height 160 cm (5' 3) 01/07/2023 12:46 PM EDT Body Mass Index 23.56 01/07/2023 12:46 PM EDT documented in this encounter Progress Notes * Carmelina Donaldson MD - 01/07/2023 1:00 PM EDT Images from the original note were not included. [facility] Section of Pulmonary and Critical Care Medicine Outpatient Follow Up Date of Encounter: 01/07/2023 History of Present Illness: Jerri Velasco is [...] a repeat CT that showed stability. She was in [place] this winter and while on a cruise developed a respiratory infection. She was COVID negative. She never had a chest Xray but reports significant dyspnea and cough productive of thick green sputum. She denies hemoptysis. She was treated with albuterol, prednisone, and a course of Augmentin. After about a month she returned to her prior baseline. Today she notes that she probably has decreased exercise tolerancebecause she did not walk regularly due to her illness. She is not dyspneic at rest and is able to perform all of her ADLs without significant dyspnea. She does feel tired frequently. She denies fevers or chills. She now has nonproductive cough which is intermittent but does not wake her from sleep.She denies joint swelling or redness, skin rash, or GERD. Current Medications: Current Outpatient Medications on File Prior to Visit Medication Sig Dispense Refill ??? levalbuteroL (Xopenex) 0.63 mg/3 mL Solution for Nebulization Take 3 mLs by nebulization 2 times daily. 540 mL 1 ??? spironolactone (Aldactone) 25 mg Tablet TAKE 1 TABLET DAILY 90 tablet 3 ??? Alphagan P 0.1 % Drops Place into both eyes 2 times daily. ??? latanoprost (Xalatan) 0.005 % Drops Place 1 drop into both eyes nightly. ??? omega-3 fatty acids/fish oil (OMEGA 3 [...] needed. ??? DOCUSATE SODIUM (COLACE ORAL) ??? doxycycline (VIBRA-TABS) 100 mg Tablet TAKE 1 TABLET BY MOUTH TWO TIMES A DAY FOR 5 DAYS ??? predniSONE (Deltasone) 20 mg Tablet Take 40 mg by mouth daily. No current facility-administered medications on file prior to visit. Adverse Drug Reactions: Allergies Allergen Reactions ??? Codeine Phosphate Review of Systems: Review of Systems Constitutional: Positive for malaise/fatigue. Negative for fever, night sweats, weight gain and weight loss. HENT: Negative for congestion and sore throat. Eyes: Negative for blurred vision. Cardiovascular: Positive for dyspnea on exertion. Negative for chest pain, leg swelling and palpitations. Respiratory: Positive for cough. Negative for hemoptysis, shortness of breath, sputum production and wheezing. Endocrine: Negative for cold intolerance and heat intolerance. Hematologic/Lymphatic: Negative for adenopathy. Skin: Positive for dry skin. Musculoskeletal: Positive for arthritis. Negative for joint swelling and myalgias. Gastrointestinal: Negative for abdominal pain. Neurological: Negative for headaches and light-headedness. Psychiatric/Behavioral: Negative for depression. The patient is [...] her CT scan from today which showed stable nodules. There was an area of increased tree in bud opacities in the lingula. SPIROMETRY: I personally reviewed her PFTs from last visit which showed mild airflow obstruction with air trapping and a mildly reduced DLCO. PFT Results Flowsheet Row Office Visit from 03/31/2014 in Pulmonology at [facility] Office Visit from 09/16/2013 in Pulmonology at [facility] Office Visit from 03/11/2013 in Pulmonology at [facility] PFT Results Peak Flow 300 [...] a delightful 87 year old woman with exertional dyspnea. Her CT scan shows an inflammatory process which progressed between 2019 and 2020 but is progressing more slowly since then. PFTs show airflow obstruction with air trapping. Although the etiology isnot clear, the imaging abnormalities appear to be secondary to an infectious or inflammatory process with mucus plugging. We have discussed a bronchoscopy but she prefers not to do this and she does not cough up sputum for evaluation. We discussed mucus plugging and the utility of ACT even if it does not cause a productive cough. I will plan to see her back in 6 months with a follow up CT to reassess the nodules. If her scan is stable in 6 months, no further nodule follow up is needed. If her symptoms worsen in the interim we should discuss potential bronchoscopy again. I spent 30 minutes in the care of this patient including review of notes and tests, face to face encounter, and documentation. CARMELINA DONALDSON MD 01/07/2023 2:09 PM documented in this encounter Plan of Treatment Upcoming Encounters Date Type Department Care Team (Late st Contact Info) Description 05/18/2024 4:30 PM EDT [place] [phone] Carmelina Donaldson MD [facility] [place] [address] 05/31/2024 1:00 PM EDT [place]ointment [place] [phone] documented as of this encounter Results * CT Chest wo Contrast (Generic) (07/08/2023 2:56 PM EDT) Anatomical Region Laterality Modality Chest Computed Tomogra phy Impressions 07/10/2023 8:19 AM EDT Stable appearance of the pulmonary parenchyma with subpleural reticulation, bronchiectasis, tree-in-bud opacities. The appearance is suggestive of Mycobacterium avium complex or another chronic interstitial process. Thank you for letting us participate in the care of this patient. ??If you are a health care provider and have any questions regarding this report, please contact the number below. ??For patients who have questions please contact the health healthcare science specialist that requested your imaging first. ? Electronically signed by: RADHA SANDY MD, [facility] ([phone]), at 07/10/2023 8:19 AM Narrative 07/10/2023 8:19 AM EDT EXAMINATION: CT CHEST WO CONTRAST (GENERIC) CLINICAL HISTORY: Lung nodule, > 8mm TECHNIQUE: Helical CT of the chest without intravenous contrast administration. Thin-section reconstructions as well as coronal and sagittal reformatted images were generated. COMPARISON: CT chest 01/07/2023 FINDINGS: Pulmonary parenchyma: Unchanged biapical scarring and subpleural reticulation. Associated tree-in-bud opacities in the lingula and right middle lobe. Right lower lobe lateral pleural-based nodular opacity measuring 12 x 24 mm, present since 2012 with a waxing/waning nature. No new pulmonary nodule. Airways: Unchanged bronchiectasis predominantly involving the upper lobes and right middle lobe, particularly within areas of subpleural reticulation and tree-in-bud opacity. The central airways are patent. Pleura: No effusion. Lymph nodes: No lymphadenopathy. Heart and vasculature: Mild biatrial enlargement. Coronary artery and aortic root calcification. No pericardial effusion. Nonaneurysmal thoracic aorta and normal caliber main pulmonary artery. Other mediastinal structures: Tiny hiatal hernia. Upper abdomen: Cholelithiasis. Skeletal structures: S-shaped spinal curvature with associated degenerative disc disease. Procedure Note Radha Sandy MD - 07/10/2023 EXAMINATION: CT CHEST WO CONTRAST (GENERIC) CLINICAL HISTORY: Lung nodule, > 8mm TECHNIQUE: Helical CT of the chest without intravenous contrastadministration. Thin-section reconstructions as well as coronal and sagittal reformattedimages were generated. COMPARISON: CT chest 01/07/2023 FINDINGS: Pulmonary parenchyma: Unchanged biapical scarring and subpleuralreticulation. Associated tree-in-bud opacities in the lingula and right middle lobe.Right lower lobe lateral pleural-based nodular opacity measuring 12 x 24 mm,present since 2012 with a waxing/waning nature. No new pulmonary nodule. Airways: Unchanged bronchiectasis predominantly involving the upper lobesand right middle lobe, particularly within areas of subpleural reticulationand tree-in-bud opacity. The central airways are patent. Pleura: No effusion. Lymph nodes: No lymphadenopathy. Heart and vasculature: Mild biatrial enlargement. Coronary artery andaortic root calcification. No pericardial effusion. Nonaneurysmal thoracic aortaand normal caliber main pulmonary artery. Other mediastinal structures: Tiny hiatal hernia. Upper abdomen: Cholelithiasis. Skeletal structures: S-shaped spinal curvature with associateddegenerative disc disease. IMPRESSION Stable appearance of the pulmonary parenchyma with subpleuralreticulation, bronchiectasis, tree-in-bud opacities. The appearance is suggestive of Mycobacterium avium complex or another chronic interstitial process. Thank you for letting us participate in the care of this patient. If youare a health care provider and have any questions regarding this report,please contact the number below. For patients who have questions please contactthe health healthcare science specialist that requested your imaging first. Electronically signed by: RADHA SANDY MD, [facility]([phone]), at 07/10/2023 8:19 AM Carmelina Donaldson MD IMG CT ORDERABLES documented in this encounter Visit Diagnoses Diagnosis Pulmonary nodule Solitary pulmonary nodule Bronchiectasis without complication Bronchiectasis without acute exacerbation Pulmonary nodule Solitary pulmonary nodule documented in this encounter Care Teams Print Decorator Relationship Specialty Start Date End Date Uyen Gerard MD [address] [place] [address] PCP - General 07/01/13 documented as of this encounter
--- OUTSIDE RECORDS SUMMARY | 2024-04-26 02:19 | XMS_ITS | Encounter Summary ---
Author Organization [facility] [place] [address] Care Team Providers Care Net Solutions Architect Name Role Phone Uyen Gerard MD Primary Care Provider Reason for Visit * Reason Onset Date Comments Medication Refill 10/08/2022 Encounter Details Date Type Department Care Team (Late st Contact Info) Description 10/08/2022 Ref[place] [phone] Carmelina Donaldson MD [facility] [place] [address] Interstitial lung disease; Bronchiectasis without complication Social [...] 4:30 PM EDT Office [place] [phone] Carmelina Donaldson MD [facility] [place] [address] 05/31/2024 1:00 PM EDT Appointment [place] [address] documented as of this encounter Visit Diagnoses Diagnosis Interstitial lung disease Postinflammatory pulmonary fibrosis Bronchiectasis without complication Bronchiectasis without acute exacerbation documented in this encounter Care Teams Net Solutions Architect Relationship Specialty Start Date End Date Uyen Gerard MD [facility] [address] [facility] [address] [place] [address] PCP - General 07/01/13 documented as of this encounter
--- OUTSIDE RECORDS SUMMARY | 2024-04-26 02:19 | XMS_ITS | Encounter Summary ---
Author Organization [facility] [place] [address] Care Team Providers Care Nuclear Physicist Name Role Phone Uyen Gerard MD Primary Care Provider [phone] Reason for Visit * Reason Comments Medication Refill Encounter Details Date Type Department Care Team (Late st Contact Info) Description 03/11/2023 Refill Nephrology [place] [phone] Manuel Ricks MD [facility] [place] [address] Essential hypertension Social History Tobacco Use Types [...] 4:30 PM EDT Office [place] [phone] Carmelina Donaldson MD [facility] [place] [address] 05/31/2024 1:00 PM EDT Appointment [place] [address] documented as of this encounter Visit Diagnoses Diagnosis Essential hypertension Unspecified essential hypertension documented in this encounter Care Teams Nuclear Physicist Relationship Specialty Start Date End Date Uyen Gerard MD [address] [place] [address] PCP - General 07/01/13 documented as of this encounter
--- OUTSIDE RECORDS SUMMARY | 2024-04-26 02:19 | XMS_ITS | Encounter Summary ---
[place] [address] Care Team Providers Care Eyeglass Frame Truer Name Role Phone Uyen Gerard MD Primary Care Provider Encounter Details Date Type Department Care Team (Late st Contact Info) Description 04/15/2022 Telephone [place] [address] Joyce Duval LPN Social History Tobacco Use Types Packs/Day Years [...] encounter Miscellaneous Notes * Telephone Encounter - Joyce Duval LPN - 04/15/2022 3:03 PM EDT Faxed signed order for CT Chest wo Contrast to [facility] Radiology Prior authorization approved Fax submission confirmation time stamped for 03/25/22 11:01 am documented in this encounter Plan of Treatment Upcoming Encounters Date Type Department Care Team (Late st Contact Info) Description 05/18/2024 4:30 PM EDT Office [place] [address] Carmelina Donaldson MD [facility] [place] [address] 05/31/2024 1:00 PM EDT Appointment [place] [phone] documented as of this encounter Visit Diagnoses Not on filedocumented in this encounter Care Teams Eyeglass Frame Truer Relationship Specialty Start Date End Date Uyen Gerard MD [employer] [address] [facility] [address] [place] [address] PCP - General 07/01/13 documented as of this encounter
--- OUTSIDE RECORDS SUMMARY | 2024-04-26 02:19 | XMS_ITS | Encounter Summary ---
Author Organization [facility] [place] [address] Care Team Providers Care Operations Architect Name Role Phone Uyen Gerard MD Primary Care Provider [phone] Reason for Visit * Reason Onset Date Comments Medication Refill 12/30/2023 Encounter Details Date Type Department Care Team (Late st Contact Info) Description 12/30/2023 Refill [place] [phone] Carmelina Donaldson MD [facility] [place] [address] Interstitial lung disease; Bronchiectasis without complication Social [...] 4:30 PM EDT Office [place] [phone] Carmelina Donaldson MD [facility] [place] [address] 05/31/2024 1:00 PM EDT Appointment [place] [address] documented as of this encounter Visit Diagnoses Diagnosis Interstitial lung disease Postinflammatory pulmonary fibrosis Bronchiectasis without complication Bronchiectasis without acute exacerbation documented in this encounter Care Teams Operations Architect Relationship Specialty Start Date End Date Uyen Gerard MD [facility] [address] [facility] [address] [place] [address] PCP - General 07/01/13 documented as of this encounter
--- OUTSIDE RECORDS SUMMARY | 2024-04-26 02:19 | XMS_ITS | Encounter Summary ---
Author Organization [facility] [place] [address] Care Team Providers Care Card Player Name Role Phone Uyen Gerard MD Primary Care Provider [phone] Encounter Details Date Type Department Care Team (Late st Contact Info) Description 03/01/2023 Orders Only [place] [phone] Manuel Ricks MD [facility] [place] [address] Stage 3a chronic kidney disease; Hyponatremia Social [...] 4:30 PM EDT [place] [phone] Carmelina Donaldson MD [facility] [place] [address] 05/31/2024 1:00 PM EDT [place] [address] documented as of this encounter Results * (ABNORMAL) Free Light Chains, Serum (03/02/2023 3:02 PM EDT) [facility] Magdalena Free Light Chain 3.61(H) 0.72 - 2.75 mg/dL [facility] Lambda Free Light Chain 3.04(H) 0.57 - 2.15 mg/dL [facility] Magdalena/Lambda FLC Ratio 1.1875 0.4000 - 2.5800 [facility] Blood 03/02/2023 3:02 PM EDT 03/02/2023 3:11 PM EDT Narrative Resulting Agency Comment Spec In Lab Manuel Ricks MD CHEMISTRY ORDERABLES Performing Organization Address [facility] Co de Phone Number [facility] [place] [address] * (ABNORMAL) Protein Electrophoresis, serum (03/02/2023 3:02 PM EDT) [facility] Total Prot Electrophoresis 7.8 6.1 - 8.0 g/dL [facility] Albumin Electrophoresis 4.41 3.20 - 5.20 g/dL [facility] Alpha 1 Globulin 0.20 0.10 - 0.30 g/dL [facility] Alpha 2 Globulin 0.89 0.40 - 0.90 g/dL [facility] Beta Globulin 0.76 0.50 - 1.00 g/dL [facility] Gamma Globulin 1.54(H) 0.50 - 1.30 g/dL [facility] M1 Band None Detected None Detected [facility] Blood 03/02/2023 3:02 PM EDT 03/02/2023 3:11 PM EDT Narrative Resulting Agency Comment Spec In Lab Manuel Ricks MD CHEMISTRY ORDERABLES Performing Organization Address [facility] Co de Phone Number [facility] [place] [address] * Osmolality (03/02/2023 3:02 PM EDT) Osmolality 288 275 - 295 mOsm/kg [facility] Blood 03/02/2023 3:02 PM EDT 03/02/2023 3:11 PM EDT Narrative Resulting Agency Comment Spec In Lab Manuel Ricks MD CHEMISTRY ORDERABLES Performing Organization Address [facility] Co de Phone Number [facility] [place] [address] * Magnesium (03/02/2023 3:02 PM EDT) Magnesium 0.89 0.69 - 1.07 mmol/L [facility] Blood 03/02/2023 3:02 PM EDT 03/02/2023 3:11 PM EDT Narrative Resulting Agency Comment Spec In Lab Manuel Ricks MD CHEMISTRY ORDERABLES Performing Organization Address [facility] de Phone Number [facility] [place] [address] * (ABNORMAL) Comprehensive metabolic panel (non-fasting) (03/02/2023 3:02 PM EDT) Pathologist [facility] Glucose 90 65 - 199 mg/dL [facility] Comment:Diabetes: >=200 mg/d L plus symptoms Blood Urea Nitrogen 30(H) 8 - 18 mg/dL [facility] Creatinine 1.17 0.70 - 1.20 mg/dL [facility] Sodium 134(L) 135 - 145 mmol/L [facility] Potassium 4.6 3.5 - 5.0 mmol/L [facility] Comment: Please note: ??Patients with WBC >100,000 may have falsely elevated Potassium levels. ??For accurate Potassium quantification in these patients send serum separator tube (gold top) for subsequent determinations. ??Contact the Clinical Chemistry Laboratory if there are any questions. Chloride 96(L) 98 - 107 mmol/L [facility] Carbon Dioxide 27 22 - 31 mmol/L [facility] Anion Gap 11 5 - 15 mmol/L [facility] Calcium 9.7 8.5 - 10.5 mg/dL [facility] Protein, Total 8.3(H) 6.1 - 8.0 g/dL [facility] Albumin 4.2 3.2 - 5.2 g/dL [facility] Aspartate Aminotransferase 24 0 - 30 unit/L [facility] Alanine Aminotransferase 14 0 - 30 unit/L [facility] Alkaline Phosphatase 89 35 - 105 unit/L [facility] Bilirubin, Total 0.4 0.2 - 1.3 mg/dL [facility] Est Glomerular Filtration Rate 45(L) >=60 mL/min/1. 73 m?? [facility] Comment: This patient's estimated GFR was [...] Ricks MD CHEMISTRY ORDERABLES Performing Organization Address [facility] [place] [address] * PTH (03/02/2023 3:02 PM EDT) Parathyroid Hormone 48 15 - 65 pg/mL [facility] Blood 03/02/2023 3:02 PM EDT 03/02/2023 3:11 PM EDT Narrative Resulting Agency Comment Spec In Lab Manuel Shari Ricks MD CHEMISTRY ORDERABLES [facility] [place] [address] * Phosphorus (03/02/2023 3:02 PM EDT) Phosphorus 3.9 2.5 - 4.5 mg/dL [facility] Blood 03/02/2023 3:02 PM EDT 03/02/2023 3:11 PM EDT Narrative Resulting Agency Comment Spec In Lab Manuel Ricks MD CHEMISTRY ORDERABLES Performing Organization Address [facility] Co de Phone Number [facility] [place] [address] * Sodium, urine, random (03/02/2023 3:00 PM EDT) Sodium, Urine 50 mmol/L [facility] Urine 03/02/2023 3:00 PM EDT 03/02/2023 3:13 PM EDT Narrative Resulting Agency Comment Spec In Lab Manuel Ricks MD URINE ORDERABLES Performing Organization Address [facility] de Phone Number [facility] [place] [address] * Protein Electrophoresis, urine, random (03/02/2023 3:00 PM EDT) Protein, Urine 8 0 - 12 mg/dL [facility] U Albumin 38 % total [facility] Globulin, Urine 62 % total [facility] M1 Band, Urine None Detected [facility] UPEP Comments See Note [facility] Comment: There is no evidence of clonal free light chains in this patient's urine sample. Urine 03/02/2023 3:00 PM EDT 03/02/2023 3:13 PM EDT Narrative Resulting Agency Comment Spec In Lab Manuel Ricks MD URINE ORDERABLES Performing Organization Address [facility] Co de Phone Number [facility] [place] [address] documented in this encounter Visit Diagnoses Diagnosis Stage 3a chronic kidney disease Hyponatremia Hyposmolality and/or hyponatremia documented in this encounter Care Teams Card Player Relationship Specialty Start Date End Date Uyen Gerard MD [address] [place] [address] PCP - General 07/01/13 documented as of this encounter
--- OUTSIDE RECORDS SUMMARY | 2024-04-26 02:19 | XMS_ITS | Encounter Summary ---
[place] [address] Care Team Providers Care Field Sampling Technician Name Role Phone Uyen Gerard MD Primary Care Provider [phone] Reason for Referral * Diagnostic Test (Routine) - Closed Specialty Diagnoses / Procedures Referred By Contac t Referred To Contact Radiology Diagnoses Pulmonary nodule Procedures CT Chest wo Contrast (Generic) Carmelina Donaldson MD [facility] [place] [address] [facility] [place] [address] Referral ID Status Reason Start Date Expiration Date V isits Requested Visits Authorized [id number] Closed Specialty Service Requested 08/06/2022 02/04/2024 1 1 Reason for Visit * Diagnostic Test (Routine) - Closed Specialty Diagnoses / Procedures Referred By Conttaj callahan Referred To Contact Radiology Diagnoses Pulmonary nodule Procedures CT Chest wo Contrast (Generic) Carmelina Donaldson MD [facility] [place] [address] [facility] [place] [address] Referral ID Status Reason Start Date Expiration Date V isits Requested Visits Authorized [id number] Closed Specialty Service Requested 08/06/2022 02/04/2024 1 1 Encounter Details Date Type Department Care Team (Latest Contact Info) Description 01/07/2023 11:46 AM EDT - 01/07/2023 11:59 PM EDT Hospital Encounter CT Scan at [facility] [place] [phone] Carmelina Donaldson MD [facility] [address] [place] [address] Pulmonary nodule Discharge Disposition: Home Social History Tobacco Use [...] Sig Dispensed Refills Start Date End Date fluticasone lukkahe-nuztrqljuzog-o ilanteroL (Trelegy Ellipta) 100-62.5-25 mcg inhaler (DPI) daily. 02/20/2020 latanoprost (Xalatan) 0.005 % Drops Place 1 [...] as needed. DOCUSATE SODIUM (COLACE ORAL) 01/02/2009 levalbuteroL (Xopenex) 0.63 mg/3 mL Solution for NebulizationIndication s:Interstitial lung disease,Bronchiectasis without complication Take 3 mLs by nebulization 2 times daily. 540 mL 1 10/08/2022 12/30/2023 spironolactone (Aldactone) 25 mg TabletIndications:Esse ntial hypertension TAKE 1 TABLET DAILY 90 tablet 3 03/17/2022 04/13/2023 Alphagan P 0.1 % Drops Place into both eyes 2 times daily. 01/28/2022 01/25/2024 doxycycline (VIBRA-TABS) 100 mg Tablet TAKE 1 TABLET BY MOUTH TWO TIMES A DAY FOR 5 DAYS 02/09/2022 03/02/2023 predniSONE (Deltasone) 20 mg Tablet Take 40 mg by mouth daily. 02/09/2022 03/02/2023 omega-3 fatty acids/fish oil (OMEGA 3 FISH OIL ORAL) Take by mouth daily. fluticasone/umeclidin/ vilanter (TRELEGY ELLIPTA INHL) Inhale into the lungs daily. 01/25/2024 levalbuterol (XOPENEX HFA) 45 mcg/actuation HFA Aerosol Inhaler Inhale 1-2 puffs into the lungs every 4 hours as needed. 01/20/2024 documented as of this encounter Plan of Treatment Upcoming Encounters Date Type Department Care Team (Late st Contact Info) Description 05/18/2024 4:30 PM EDT Office Visit [place] [address] Carmelina Donaldson MD [facility] [address] [place] [address] 05/31/2024 1:00 PM EDT Appointment [place] [phone] documented as of this encounter Procedures Procedure Name Priority Date/Time Associated Diagnosis Comments CT CHEST WO CONTRAST (GENERIC) Routine 01/07/2023 12:27 PM EDT Pulmonary nodule documented in this encounter Results * (ABNORMAL) CT Chest [...] have questions please contact the health healthcare management that requested your imaging first. ? Electronically signed by: Marianne Foster MD, [facility] ([phone]), at 01/07/2023 4:57 PM Narrative 01/07/2023 4:57 [...] Diagnoses Diagnosis Pulmonary nodule Solitary pulmonary nodule documented in this encounter Care Teams Field Sampling Technician Relationship Specialty Start Date End Date Uyen Gerard MD [address] [facility] [place] [address] PCP - General 07/01/13 documented as of this encounter
--- OUTSIDE RECORDS SUMMARY | 2024-04-26 02:19 | XMS_ITS | Encounter Summary ---
Author Organization Formerly [facility] [place] [address] Care Team Providers Care Neurodiagnostic Technologist Name Role Phone Uyen Gerard MD Primary Care Provider [phone] Encounter Details Date Type Department Care Team (Latest Contact Info) Description 02/14/2022 9:00 AM EDT Laboratory Appointment Lab [address] [place] [address] Chronic kidney disease, unspecified CKD stage; Vitamin D deficiency Social History Tobacco Use Types Packs/Day Years [...] 4:30 PM EDT [place] [address] Carmelina Donaldson MD [facility] [place] [address] 05/31/2024 1:00 PM EDT [place] [address] documented as of this encounter Procedures Procedure Name Priority Date/Time Associated Diagnosis Comments HC PARATHYROID HORMONE(PTH INTACT STAT 02/14/2022 8:55 AM EDT Chronic kidney disease, unspecified CKD stage SCAN, PERIPHERAL BLOOD STAT 02/14/2022 8:55 AM EDT HEMOGRAM STAT 02/14/2022 8:55 AM EDT Chronic kidney disease, unspecified CKD stage DIFFERENTIAL, AUTOMATED STAT 02/14/2022 8:55 AM EDT Chronic kidney disease, unspecified CKD stage HC VITAMIN D TOTAL-25 HYDROXY STAT 02/14/2022 8:55 AM EDT Vitamin D deficiency HC CBC,PLT & AUTO DIFF STAT 02/14/2022 8:55 AM EDT Chronic kidney disease, unspecified CKD stage HC PHOSPHORUS, SERUM STAT 02/14/2022 8:55 AM EDT Chronic kidney disease, unspecified CKD stage HC VENIPUNCTURE STAT 02/14/2022 8:55 AM EDT Chronic kidney disease, unspecified CKD stage HC ALBUMIN, SERUM STAT 02/14/2022 8:5 5 AM EDT Chronic kidney disease, unspecified CKD stage BASIC METABOLIC PANEL STAT 02/14/2022 8:55 AM EDT Chronic kidney disease, unspecified CKD stage documented in this encounter Results * Scan, Peripheral Blood (02/14/2022 8:55 AM EDT) Plat estimate Increased [facility] RBC Morphology Abnormal [facility] Stippled RBC Present >1/HPF [facility] Blood 02/14/2022 8:55 AM EDT 02/14/2022 9:03 AM EDT Narrative Resulting Agency Comment Spec In Lab Manuel Ricks MD HEMATOLOGY ORDERABLE S [facility] [place] [address] * (ABNORMAL) Differential, Automated (02/14/2022 8:55 AM EDT) Neutrophil % 74.1 % [facility] Neutrophil Absolute 10.66(H) 1.70 - 6.10 x10(3)/ L [facility] Lymph % 8.5 % [facility] Lymphocytes Abs 1.2 0.9 - 3.2 x10(3)/ L [facility] Monocyte % 11.7 % [facility] Monocyte Abs 1.7(H) 0.3 - 0.9 x10(3)/ L [facility] Eos % 0.0 % [facility] Eosinophils Abs 0.0 0.0 - 0.4 x10(3)/[facility] Basophil % 0.1 % [facility] Baso Absolute 0.0 0.0 - 0.1 x10(3)/ L [facility] Immature Gran % 5.60 % [facility] Comment: Immature granulocytes(IG's)percentage and absolute count will include metamyelocytes, myelocytes, and promyelocytes. Blood smears from CBCs yielding IG's will be scanned manually for concordance. If this scan disagrees with the automated IG or if promyelocytes are noted, a manual differential will be performed. Immature Gran Absolute 0.80(H) 0.00 - 0.04 x10(3)/ L [facility] Blood 02/14/2022 8:55 AM EDT 02/14/2022 9:03 AM EDT Narrative Resulting Agency Comment Spec In Lab Manuel Ricks MD HEMATOLOGY ORDERABLE S [facility] [place] [address] * (ABNORMAL) Hemogram (02/14/2022 8:55 AM EDT) White Blood Cell 14.4(H) 4.0 - 9.5 x10(3)/[facility] Red Blood Cell 4.88 4.00 - 5.21 x10(6)/ L [facility] Hemoglobin 14.6 11.7 - 15.5 g/dL [facility] Hematocrit 43.1 35.7 - 45.8 % [facility] Mean Cell Volume 88.3 82.6 - 94.4 fL [facility] Mean Cell Hemoglobin 29.9 27.1 - 32.0 pg [facility] Mean Cell Hemoglobin Concentration 33.9 31.7 - 35.0 g/dL [facility] Platelet 400(H) 145 - 357 x10(3)/[facility] RDW Standard Deviation 41.4 37.0 - 46.0 [facility] RDW coefficient of variation 12.8 11.5 - 14.1 % [facility] Mean Platelet Volume 8.4 7.6 - 12.9 [facility] NRBC% auto 0.0 % [facility] NRBC Absolute 0.000 0.000 - 0.000 x10(3)/[facility] Blood 02/14/2022 8:55 AM EDT 02/14/2022 9:03 AM EDT Narrative Resulting Agency Comment Spec In Lab Manuel Ricks MD HEMATOLOGY ORDERABLE S [facility] [place] [address] * (ABNORMAL) Basic Metabolic Panel (non-fasting) (02/14/2022 8:55 AM EDT) Pathologist [facility] Glucose 94 65 - 199 mg/dL [facility] Comment:Diabetes: >=200 mg/d L plus symptoms Blood Urea Nitrogen 29(H) 8 - 18 mg/dL [facility] Creatinine 0.98 0.70 - 1.20 mg/dL [facility] Sodium 127(L) 135 - 145 mmol/L [facility] Potassium 4.8 3.5 - 5.0 mmol/L [facility] Comment: Please note: ??Patients with WBC >100,000 may have falsely elevated Potassium levels. ??For accurate Potassium quantification in these patients send serum separator tube (gold top) for subsequent determinations. ??Contact the Clinical Chemistry Laboratory if there are any questions. Chloride 89(L) 98 - 107 mmol/L [facility] Carbon Dioxide 30 22 - 31 mmol/L [facility] Anion Gap 8 5 - 15 mmol/L [facility] Calcium 9.6 8.5 - 10.5 mg/dL [facility] Est Glomerular Filtration Rate 53(L) >=60 mL/min/1. 73 m?? [facility] Comment: This patient? s estimated glomerular filtration rate (eGFR) is between 53 mL/min/1.73 m2 (patients with less muscle mass) and 61 mL/min/1.73 m2 (patients with more muscle mass) as determined by the CKD-EPI equation. Assessment of eGFR is not appropriate when creatinine concentrations are rapidly changing. For clinical decisions where creatinine clearance will affect therapy, a 24-hour urine creatinine clearance may be advised. Assignment of CKD stage 1 - 5 for patients with an eGFR near the transition point between stages may be based on clinical assessment of muscle mass and symptoms in addition to eGFR. Blood 02/14/2022 8:55 AM EDT 02/14/2022 9:03 AM EDT Narrative Resulting Agency Comment Spec In Lab Manuel Ricks MD CHEMISTRY ORDERABLES [facility] [place] [address] * Phosphorus (02/14/2022 8:55 AM EDT) Phosphorus 2.9 2.5 - 4.5 mg/dL [facility] Blood 02/14/2022 8:55 AM EDT 02/14/2022 9:03 AM EDT Narrative Resulting Agency Comment Spec In Lab Manuel Ricks MD CHEMISTRY ORDERABLES Performing Organization Address City/[facility]/[place] [address] * Albumin Level (02/14/2022 8:55 AM EDT) Albumin 4.2 3.2 - 5.2 g/dL [facility] Blood 02/14/2022 8:55 AM EDT 02/14/2022 9:03 AM EDT Narrative Resulting Agency Comment Spec In Lab Manuel Ricks MD CHEMISTRY ORDERABLES Performing Organization Address [facility] [place] [place] [address] * PTH (02/14/2022 8:55 AM EDT) Parathyroid Hormone 63 15 - 65 pg/mL [facility] Blood 02/14/2022 8:55 AM EDT 02/14/2022 9:03 AM EDT Narrative Resulting Agency Comment Spec In Lab Manuel Ricks MD CHEMISTRY ORDERABLES Performing Organization Address [facility] [place] [address] * Vitamin D, 25-Hydroxy (02/14/2022 8:55 AM EDT) Vitamin D Total 25 OH 84 21 - 100 ng/mL [facility] Vit D Interp Sufficient [facility] Blood 02/14/2022 8:55 AM EDT 02/14/2022 9:03 AM EDT Narrative Resulting Agency Comment Spec In Lab Manuel Ricks MD CHEMISTRY ORDERABLES [facility] [place] [address] * Magnesium (02/14/2022 8:55 AM EDT) Magnesium 0.94 0.69 - 1.07 mmol/L [facility] Blood 02/14/2022 8:55 AM EDT 02/14/2022 9:03 AM EDT Narrative Resulting Agency Comment Spec In Lab Manuel Ricks MD CHEMISTRY ORDERABLES [facility] [place] [address] documented in this encounter Visit Diagnoses Diagnosis Chronic kidney disease, unspecified CKD stage Vitamin D deficiency Unspecified vitamin D deficiency documented in this encounter Care Teams Neurodiagnostic Technologist Relationship Specialty Start Date End Date Uyen Gerard MD [address] [place] [address] PCP - General 07/01/13 documented as of this encounter
--- OUTSIDE RECORDS SUMMARY | 2024-04-26 02:19 | XMS_ITS | Encounter Summary ---
Author Organization [place] [address] Care Team Providers Care Fertilizing Machine Operator Name Role Phone Uyen Gerard MD Primary Care Provider [phone] Encounter Details Date Type Department Care Team (Latest Contact Info) Description 02/28/2023 Travel Social History Tobacco Use Types Packs/Day [...] 4:30 PM EDT [place] [phone] Carmelina Donaldson MD [facility] [place] [address] 05/31/2024 1:00 PM EDT [place] [phone] documented as of this encounter Visit Diagnoses Not on filedocumented in this encounter Care Teams Fertilizing Machine Operator Relationship Specialty Start Date End Date Uyen Gerard MD [facility] [address] [place] [address] PCP - General 07/01/13 documented as of this encounter
--- OUTSIDE RECORDS SUMMARY | 2024-04-26 02:19 | XMS_ITS | Encounter Summary ---
Author Organization [facility] [place] [address] Care Team Providers Care Tankroom Worker Name Role Phone Uyen Gerard MD Primary Care Provider [phone] Encounter Details Date Type Department Care Team (Latest Contact Info) Description 02/14/2022 10:00 AM EDT Office Visit [place] [address] Manuel Ricks MD [facility] [place] [address] Hyponatremia; Stage 3a chronic kidney disease; COPD exacerbation; Leukocytosis, unspecified type; Hypertension, unspecified type Social History Tobacco Use Types [...] Progress Notes * Manuel Ricks MD - 02/14/2022 10:00 AM EDT Nephrology/Hypertension Clinic Follow-up Note [id number] ID: 87 y.o.year-old female for follow up [...] Went to urgent care and dx with copdflare. CXR done. No mention of pna or chf. Started on prednisone and doxycycline and albuterol. Feeling much better but BP going up on the prednisone. Home bp up to 150s systolic. Plan was for her totake pred 20bid x 15 days but daughter (an top lift nailer) has advised her to taper after one week over one more week. Started pred last Thursday (this is day 6); today is last day of doxy. Feels fluid intake is up on current meds Does not use added salt and generally avoids salt Right foot tends to swell a little (this has been noticeable for some time) Went on cruise to [facility] in the spring, swelling of both feet [...] now back to her usual. Mild chest discomfort with coughing but no anginal cp. Has h/o afib but no h/o CHF. Sees claims administrator at [facility], most recently last Aug next. Has had [...] pitting right diaz, tr to 1+ left diaz Skin: No rash Neuro: nonfocal, no drift, [...] CALCIUM 9.6 02/14/2022 0855 ALKPHOS 65 07/01/2013 09 AST 29 07/01/2013926 ALT 22 07/01/2013 0927 BILITOT 0.4 07/01/2013 09 Lab Results Component Value Date PHOS 2.9 02/14/2022 Recent Labs 02/14/22 0855 ALBUMIN 4.2 Office UA: 1.015, pH 6, tr pro, trace heme. Sediment: mod squames. Occ transitional cells. Rare wbc, rare RTE, no casts, no RBCs Latest Reference [...] recently on pred taper; regimen atypical but appears to be well tolerated and effective. Mild low sodium discussed below. Will stop pred and have her monitor bp. IF it falls back to well controlled baseline and sodium normalizes, no adjustment needed. Diabetes control: n/a Lytes/acid-base: mildly worse hyponatremia (baseline low 130s, now 127). 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 She did travel to [facility] so had risk factor despite anticoagulation. She has f/u with her pcp and claims administrator this month who can assess need for additional w/u. F/u applications intern ordered for next week Patient will monitor her bp and let me know If all improves, f/u one year. CC: Uyen Gerard MD [facility] [address] [address] Yazan Kenn Cardiology at [facility] documented in this encounter Plan of Treatment Upcoming Encounters Date Type Department Care Team (Late st Contact Info) Description 05/18/2024 4:30 PM EDT Office [place] [address] Carmelina Donaldson MD [facility] [place] [address] 05/31/2024 1:00 PM EDT [place] [address] documented as of this encounter Procedures Procedure Name Priority Date/Time Associated Diagnosis Comments HC CREATININE - NON BLOOD Routine 02/14/2022 10:00 AM EDT Hyponatremia HC SODIUM, URINE Routine 02/14/2022 10:0 0 AM EDT Hyponatremia HC OSMOLALITY URINE Routine 02/14/2022 1 0:00 AM EDT Hyponatremia documented in this encounter Results * U Albumin/Cre Ratio (02/14/2022 10:00 AM EDT) Albumin / Creatinin Ratio, Urine 21 0 - 29 mcg/mg Cr [facility] Comment: Reference Ranges: <30 [...] Supplements (2012) 2, 357? 362 Albumin, Urine 9.3 mg/L [facility] Creatinine, Urine 44 mg/dL [facility] Urine 02/14/2022 10:0 0 AM EDT 02/14/2022 11:50 AM EDT Narrative Resulting Agency Comment Spec In Lab Manuel Ricks MD URINE ORDERABLES Performing Organization Address City/[facility] Co de Phone Number [facility] [place] [address] * Sodium, urine, random (02/14/2022 10:00 AM EDT) Sodium, Urine 41 mmol/L [facility] Urine 02/14/2022 10:0 0 AM EDT 02/14/2022 11:50 AM EDT Narrative Resulting Agency Comment Spec In Lab Manuel Ricks MD URINE ORDERABLES Performing Organization Address City/[facility]/ZIP Co de Phone Number [facility] [place] [address] * Osmolality, urine, random (02/14/2022 10:00 AM EDT) Osmolality, Urine 419 50 - 1,200 mOsm/kg [facility] Urine 02/14/2022 10:0 0 AM EDT 02/14/2022 11:50 AM EDT Narrative Resulting Agency Comment Spec In Lab Manuel Ricks MD URINE ORDERABLES [facility] [place] [address] documented in this encounter Visit Diagnoses Diagnosis Hyponatremia Hyposmolality and/or hyponatremia Stage 3a chronic kidney disease COPD exacerbation Obstructive chronic bronchitis with exacerbation Leukocytosis, unspecified type Hypertension, unspecified type documented in this encounter Care Teams Tankroom Worker Relationship Specialty Start Date End Date Uyen Gerard MD [address] [place] [address] PCP - General 07/01/13 documented as of this encounter
--- OUTSIDE RECORDS SUMMARY | 2024-04-26 02:19 | XMS_ITS | Encounter Summary ---
Author Organization [facility] [place] [address] Care Team Providers Care Record Center Coordinator Name Role Phone Uyen Gerard MD Primary Care Provider [phone] Encounter Details Date Type Department Care Team (Late st Contact Info) Description 05/29/2023 Telephone Pulmonology at [facility] [place] [phone] Uyen Mansfield Social History Tobacco Use Types [...] encounter Miscellaneous Notes * Telephone Encounter - Uyen Mansfield - 05/29/2023 3:44 PM EDT Copied from [facility] #[id number]. Topic: Specialty Dept CRMs - Generic Call >> May 29, 2023 2:35 PM Chaparrita Eagle wrote: Specialist: Carlin Relationship (if other than patient-full name): Jerri Velasco Reason for Call: Patient is requesting CT scan and FUV be moved up to end of JUN or first part of NOV. Please advise. documented in this encounter Plan of Treatment Upcoming Encounters Date Type Department Care Team (Late st Contact Info) Description 05/18/2024 4:30 PM EDT Office [place] [phone] Carmelina Donaldson MD [facility] [place] [address] 05/31/2024 1:00 PM EDT Appointment [place] [address] documented as of this encounter Visit Diagnoses Not on filedocumented in this encounter Care Teams Record Center Coordinator Relationship Specialty Start Date End Date Uyen Gerard MD [facility] [address] [address] PCP - General 07/01/13 documented as of this encounter
--- OUTSIDE RECORDS SUMMARY | 2024-04-26 02:19 | XMS_ITS | Encounter Summary ---
Author Organization [facility] [place] [address] Care Team Providers Care Child Care Supervisor Name Role Phone Uyen Gerard MD Primary Care Provider [phone] Encounter Details Date Type Department Care Team (Late st Contact Info) Description 01/24/2024 Orders Only Nephrology [place] [phone] Manuel Ricks MD [facility] [place] [address] Stage 3a chronic kidney disease Social History Tobacco Use Types Packs/Day [...] 4:30 PM EDT Office [place] [phone] Carmelina Donaldson MD [facility] [place] [address] 05/31/2024 1:00 PM EDT Appointment [place] [address] documented as of this encounter Results * U Albumin/Cre Ratio (01/25/2024 4:00 PM EDT) Albumin / Creatinin Ratio, Urine 4 0 - 29 mcg/mg Cr [facility] Comment: Reference Ranges: <30 [...] 2, 357? 362 Albumin, Urine 3.6 mg/L [facility] Creatinine, Urine 94 mg/dL [facility] Urine 01/25/2024 4:00 PM EDT 01/25/2024 5:06 PM EDT Narrative Resulting Agency Comment Spec In Lab Manuel Ricks MD URINE ORDERABLES [facility] [place] [address] * (ABNORMAL) Urinalysis with reflex Culture (01/25/2024 4:00 PM EDT) Glucose, Urine Dipstick Negative Negative mg/dL [facility] Protein, Urine Dipstick Negative Negative mg/dL [facility] Bilirubin, Urine Dipstick Negative Negative mg/dL [facility] Comment: Clinical correlation required for positive Urine Bilirubin results as false positive may occur with some drugs and drug related products. If a false positive is suspected a serum total bilirubin should be considered if clinically indicated. Urobilinogen, Urine Dipstick Normal Normal mg/dL [facility] pH, Urn (dipstick) 6.0 5.0 - 8.0 [facility] Blood, Urine Dipstick Negative Negative mg/dL [facility] Ketone, Urine Dipstick Negative Negative mg/dL [facility] Nitrite, Urine Dipstick Negative Negative [facility] Leukocytes, Urine Dipstick Small(A) Negative [facility] Appearance, Urine Dipstick Clear Clear [facility] Specific [place] Urine Automated 1.015 1.005 - 1.030 [facility] Color, Urine Dipstick Yellow Yellow [facility] Reflex to Culture No [facility] Urine NS 01/25/2024 4:00 PM EDT 01/25/2024 5:05 PM EDT Narrative Resulting Agency Comment Spec In Lab Manuel Ricks MD URINE ORDERABLES Performing Organization Address [facility] Co de Phone Number [facility] [place] [address] * Magnesium (01/25/2024 3:56 PM EDT) Pathologist [facility] Magnesium 0.92 0.69 - 1.07 mmol/L [facility] Blood 01/25/2024 3:56 PM EDT 01/25/2024 4:03 PM EDT Narrative Resulting Agency Comment Spec In Lab Manuel Ricks MD CHEMISTRY ORDERABLES Performing Organization Address [facility] Co de Phone Number [facility] [place] [address] * (ABNORMAL) Comprehensive metabolic panel (non-fasting) (01/25/2024 3:56 PM EDT) Glucose 84 65 - 199 mg/dL [facility] Comment:Diabetes: >=200 mg/d L plus symptoms Blood Urea Nitrogen 28(H) 8 - 18 mg/dL [facility] Creatinine 1.28(H) 0.70 - 1.20 mg/dL [facility] Sodium 132(L) 135 - 145 mmol/L [facility] Potassium 4.5 3.5 - 5.0 mmol/L [facility] Comment: Please note: ??Patients with WBC >100,000 may have falsely elevated Potassium levels. ??For accurate Potassium quantification in these patients send serum separator tube (gold top) for subsequent determinations. ??Contact the Clinical Chemistry Laboratory if there are any questions. Chloride 98 98 - 107 mmol/L [facility] Carbon Dioxide 27 22 - 31 mmol/L [facility] Anion Gap 7 5 - 15 mmol/L [facility] Calcium 9.4 8.5 - 10.5 mg/dL [facility] Protein, Total 7.6 6.1 - 8.0 g/dL [facility] Albumin 4.1 3.2 - 5.2 g/dL [facility] Aspartate Aminotransferase 28 0 - 30 unit/L [facility] Alanine Aminotransferase 18 0 - 30 unit/L [facility] Alkaline Phosphatase 84 35 - 105 unit/L [facility] Bilirubin, Total 0.4 0.2 - 1.3 mg/dL [facility] Est Glomerular Filtration Rate 41(L) >=60 mL/min/1. 73 m?? [facility] Comment: This patient's estimated GFR was [...] In Lab Manuel Ricks MD CHEMISTRY ORDERABLES [facility] [place] [address] * PTH (01/25/2024 3:56 PM EDT) Parathyroid Hormone 47 15 - 65 pg/mL [facility] Blood 01/25/2024 3:56 PM EDT 01/25/2024 4:03 PM EDT Narrative Resulting Agency Comment Spec In Lab Manuel Ricks MD CHEMISTRY ORDERABLES Performing Organization Address [facility] Co de Phone Number [facility] [place] [address] * Phosphorus (01/25/2024 3:56 PM EDT) Phosphorus 3.8 2.5 - 4.5 mg/dL [facility] Blood 01/25/2024 3:56 PM EDT 01/25/2024 4:03 PM EDT Narrative Resulting Agency Comment Spec In Lab Manuel Ricks MD CHEMISTRY ORDERABLES Performing Organization Address [facility] Co de Phone Number [facility] [place] [address] documented in this encounter Visit Diagnoses Diagnosis Stage 3a chronic kidney disease documented in this encounter Care Teams Child Care Supervisor Relationship Specialty Start Date End Date Uyen Gerard MD [address] [place] [address] PCP - General 07/01/13 documented as of this encounter
--- OUTSIDE RECORDS SUMMARY | 2024-04-26 02:19 | XMS_ITS | Encounter Summary ---
Author Organization [facility] [place] [address] Care Team Providers Care Director Instrumentation Name Role Phone Uyen Gerard MD Primary Care Provider [phone] Encounter Details Date Type Department Care Team (Latest Contact Info) Description 01/20/2024 4:00 PM EDT Office [place] [phone] Carmelina Donaldson MD [facility] [place] [address] Bronchiectasis without complication Social History Tobacco Use [...] Sign Reading Time Taken Comments Blood Pressure 142/64 01/20/2024 3:45 PM EDT Pulse 69 01/20/2024 3:45 PM EDT Temperature 36.6 ??C (97.9 ??F) 01/20/2024 3:45 PM ED T Respiratory Rate - - Oxygen Saturation 96% 01/20/2024 3:45 PM EDT Inhaled Oxygen Concentration - - Weight 56.7 kg (125 lb) 01/20/2024 3:45 PM EDT Height - - Body Mass Index 22.14 07/08/2023 3:30 PM EDT documented in this encounter Progress Notes * Carmelina Donaldson MD - 01/20/2024 4:00 PM EDT Images from the original note were not included. [facility] Section of Pulmonary and Critical Care Medicine Outpatient Follow Up Date of Encounter: 01/20/2024 History of Present Illness: Jerri Velasco is a pleasant 89 year old woman who had been experiencing progressive dyspnea with cough for [...] she did not want a procedure. She has had repeat CT scans and tin January 2023 showed worsening tree in bud opacities but was stable in July 2023. She returns today with her daughters and feels that her symptoms are stable. She continues to have some exertional dyspnea and a productive cough in the morning. She uses Trelegy and Duo Nebs. She is not dyspneic at rest and is able to perform all of her ADLs without significant dyspnea. She works in her garden and walks with her daughter approximately one mile. She denies fevers or chills. She denies nocturnal symptoms. She denies joint swelling or redness, skin rash, or GERD. Overall she feels her symptoms are stable. Current Medications: Current Outpatient Medications on File Prior to Visit Medication Sig Dispense Refill levalbuteroL (Xopenex) 0.63 mg/3 mL Solution for Nebulization Take 3 mLs by nebulization 2 times daily. 540 mL 1 spironolactone (Aldactone) 25 mg tablet Take 0.5 tablets by mouth daily. 45 tablet 3 latanoprost (Xalatan) 0.005 % Drops Place 1 drop into both eyes nightly. apixaban (Eliquis) 5 mg Tablet Take 5 mg by mouth 2 times daily. metoprolol succinate XL (Toprol-XL) 50 mg Tablet Sustained Release 24 hr Take by mouth. 75 MG-AM, 50 MG-PM fluticasone/umeclidin/vilanter (TRELEGY ELLIPTA INHL) Inhale into the lungs daily. flecainide (TAMBOCOR) 50 mg Tablet Take 50 mg by mouth 2 times daily. [DISCONTINUED] levalbuterol (XOPENEX HFA) 45 mcg/actuation HFA Aerosol [...] mouth as needed. DOCUSATE SODIUM (COLACE ORAL) Alphagan P 0.1 % Drops Place into both eyes 2 times daily. omega-3 fatty acids/fish oil (OMEGA 3 FISH OIL ORAL) Take by mouth daily. No current facility-administered medications on file prior to visit. Adverse Drug Reactions: Allergies Allergen Reactions Codeine Phosphate Review of Systems: Review of Systems Constitutional: Negative for fever, night sweats, weight gain [...] lower lobes Ext: No clubbing or edema Diagnostic Testing: IMAGING: I personally reviewed her CT scan from July 2023 which showed stable nodules. There were diffuse persistent tree in bud opacities. SPIROMETRY: I personally reviewed her PFTs from last visit which showed mild airflow obstruction with air trapping and a mildly reduced DLCO. PFT Results Flowsheet Row Office Visit from 03/31/2014 in Pulmonology at [facility] Office Visit from 09/16/2013 in Pulmonology at [facility] Office Visit from 03/11/2013 in Pulmonology at [facility] PFT Results Peak Flow 300 L/min 275 L/min 300 L/min Additional PFT Data (if needed) CULTURES: PERTINENT LABS: Metabolic Parameters Lab Results Component Value Date NA 133 04/30/2023 K 3.8 04/30/2023 CL 98 04/30/2023 CO2 32 04/30/2023 ANIONGAP 3 04/30/2023 BUN 27 04/30/2023 CREATININE 1.1 04/30/2023 GLUCOSE 66 04/30/2023 CALCIUM 8.9 04/30/2023 MAGNESIUM 1.9 04/30/2023 PHOS 3.8 04/30/2023 Hematologic Parameters Lab Results Component Value Date WBC 9.6 (H) 03/02/2023 NEUTOPHILPCT 62.9 03/02/2023 IMMGRANPCT 0.70 03/02/2023 LYMPHOPCT 21.6 03/02/2023 MONOPCT 12.1 03/02/2023 BASOPCT 0.9 03/02/2023 EOSPCT 1.8 03/02/2023 HGB 13.4 03/02/2023 HCT 41.0 03/02/2023 RBC 4.47 03/02/2023 MCV 91.7 03/02/2023 MCHC 32.7 03/02/2023 RDWSD 43.4 03/02/2023 PLATELET 269 03/02/2023 LFT and Associated Parameters Lab Results Component Value Date AST 24 03/02/2023 ALT 14 03/02/2023 ALKPHOS 89 03/02/2023 BILITOT 0.4 03/02/2023 BILIDIR 0.1 07/01/2013 ALBUMIN 4.2 03/02/2023 Diabetes Laboratory Tests Lab Results Component Value Date FATOUMATAALBUR 9.3 02/14/2022 Impression / Plan of Care: Jerri Velasco is a delightful 88 year old woman with exertional dyspnea. Her CT scan shows fibrotic changes with an inflammatory process which progressed between 2019 [id number] but is progressing more slowly since then. PFTs show airflow obstruction with air trapping. Although the etiology is not clear, the imaging abnormalities appear to be secondary to an infectious or inflammatory process with mucus plugging. We have discussed a bronchoscopy but she has preferred not to. At this point her symptoms are stable, she is able to get regular exercise and perform all ADLs and she does not seem limited by her respiratory symptoms. Therefore, I feel there is no need toproceed with a bronchoscopy. She has her daughters with her and appears to be doing quite well. Shewill continue her current regimen. She is planning on air travel and has borderline oxygen saturations at home occasionally so we will check to ensure she will not need in flight oxygen. I spent 40 minutes in the care of this patient including review of notes and tests, face to face encounter, and documentation. CARMELINA DONALDSON MD 01/20/2024 5:34 PM documented in this encounter Plan of Treatment Upcoming Encounters Date Type Department Care Team (Late st Contact Info) Description 05/18/2024 4:30 PM EDT [place] [address] Carmelina Donaldson MD [facility] [place] [address] 05/31/2024 1:00 PM EDT [place] [address] documented as of this encounter Results * Common Pulmonary Function [...] Bronchiectasis without complication Bronchiectasis without acute exacerbation Bronchiectasis without complication Bronchiectasis without acute exacerbation documented in this encounter Care Teams Director Instrumentation Relationship Specialty Start Date End Date Uyen Gerard MD [facility] [address] [place] [address] PCP - General 07/01/13 documented as of this encounter
--- OUTSIDE RECORDS SUMMARY | 2024-04-26 02:19 | XMS_ITS | Encounter Summary ---
[facility] [place] [address] Care Team Providers Care Laboratory Animal Caretaker Name Role Phone Uyen Gerard MD Primary Care Provider [phone] Encounter Details Date Type Department Care Team (Latest Contact Info) Description 01/07/2023 Travel Social History Tobacco Use Types Packs/Day [...] 4:30 PM EDT Office [place] [phone] Carmelina Donaldson MD [facility] [place] [address] 05/31/2024 1:00 PM EDT [place] [address] documented as of this encounter Visit Diagnoses Not on filedocumented in this encounter Care Teams Laboratory Animal Caretaker Relationship Specialty Start Date End Date Uyen Gerard MD [facility] [address] [place] [address] PCP - General 07/01/13 documented as of this encounter
--- OUTSIDE RECORDS SUMMARY | 2024-04-26 02:19 | XMS_ITS | Encounter Summary ---
Author [facility] [place] [address] Care Team Providers Care Computer Security Coordinator Name Role Phone Uyen Gerard MD Primary Care Provider [phone] Encounter Details Date Type Department Care Team (Latest Contact Info) Description 03/02/2023 Travel Social History Tobacco Use Types Packs/Day [...] 4:30 PM EDT Office [place] [phone] Carmelina Donaldson MD [facility] [place] [address] 05/31/2024 1:00 PM EDT Appointment [place] [phone] documented as of this encounter Visit Diagnoses Not on filedocumented in this encounter Care Teams Computer Security Coordinator Relationship Specialty Start Date End Date Uyen Gerard MD [facility] [address] [place] [address] PCP - General 07/01/13 documented as of this encounter
--- OUTSIDE RECORDS SUMMARY | 2024-04-26 02:19 | XMS_ITS | Encounter Summary ---
Author Organization [facility] [place] [address] Care Team Providers Care Ward Maid Name Role Phone Uyen Gerard MD Primary Care Provider [phone] Encounter Details Date Type Department Care Team (Late st Contact Info) Description 03/24/2022 [place] [address] Carmelina Donaldson MD [facility] [place] [address] Social History Tobacco Use Types Packs/Day Years [...] 4:30 PM EDT [place] [address] Carmelina Donaldson MD [facility] [place] [address] 05/31/2024 1:00 PM EDT [place] [address] documented as of this encounter Visit Diagnoses Diagnosis Pulmonary nodule Solitary pulmonary nodule documented in this encounter Care Teams Ward Maid Relationship Specialty Start Date End Date Uyen Gerard MD [address] [facility] [address] [place] [address] PCP - General 07/01/13 documented as of this encounter
--- OUTSIDE RECORDS SUMMARY | 2024-04-26 02:19 | XMS_ITS | Encounter Summary ---
Author Organization Formerly [facility] [place] [address] Care Team Providers Care Swimming Teacher Name Role Phone Uyen Gerard MD Primary Care Provider [phone] Encounter Details Date Type Department Care Team (Latest Contact Info) Description 01/25/2024 3:00 PM EDT Office Visit [place] [address] Manuel Ricks MD [facility] [place] [address] Stage 3 chronic kidney disease, unspecified whether stage 3a or 3b CKD; Hypertension, unspecified type; Hyponatremia Social History Tobacco Use Types Packs/Day [...] Pulse 78 01/25/2024 3:07 PM EDT Temperature - - Respiratory Rate - - Oxygen Saturation - - Inhaled Oxygen Concentration - - Weight 57.6 kg (127 lb) 01/25/2024 3:07 PM EDT Height 160 cm (5' 3) 01/25/2024 3:07 PM EDT Body Mass Index 22.5 01/25/2024 3:07 PM EDT documented in this encounter Progress Notes * Manuel Ricks MD - 01/25/2024 3:00 PM EDT Nephrology/Hypertension Clinic Follow-up Note [id number] ID: 89 y.o.year-old female for follow up of mild CKD, hypertension, and history of hyponatremia Past Medical History: Past Medical History: Diagnosis Date COPD (chronic obstructive pulmonary disease) 06/02/2011 Hypertension 06/02/2011 PPD positive 1960 Never treated Rash Renal cell cancer 06/02/2011 Patient Active Problem List Diagnosis Code Hypertension I10 Renal cell cancer C64.9 COPD (chronic obstructive pulmonary disease) J44.9 Stucco keratosis L82.1 Seborrheic keratosis L82.1 Dermal nevus of other site D23.9 Solar lentigo L81.4 Chronic renal insufficiency, stage III (moderate) N18.30 Current use of parts counterman anticoagulation Z79.01 USP current use of antiarrhythmic medical therapy Z79.899 Mixed hyperlipidemia E78.2 Paroxysmal atrial fibrillation I48.0 Sleep apnea in adult G47.30 Venous insufficiency I87.2 Current Outpatient Medications on File Prior to Visit Medication Sig Dispense Refill dorzolamide (Trusopt) 2 % Drops Place into both eyes 2 times daily. fluticasone ybvymwj-dyzavvvniebt-pmpsgzpkzZ (Trelegy Ellipta) 100-62.5-25 mcg inhaler (DPI) daily. levalbuteroL (Xopenex HFA) 45 mcg/actuation inhaler (HFA) Inhale 1-2 puffs into the lungs every 4 hours as needed. 1 each 3 levalbuteroL (Xopenex) 0.63 mg/3 mL Solution for [...] as needed. DOCUSATE SODIUM (COLACE ORAL) [DISCONTINUED] Alphagan P 0.1 % Drops Place into both eyes 2 times daily. [DISCONTINUED] omega-3 fatty acids/fish oil (OMEGA 3 FISH OIL ORAL) Take by mouth daily. [DISCONTINUED] fluticasone/umeclidin/vilanter (TRELEGY ELLIPTA INHL) Inhale into the lungs daily. No current facility-administered medications on file prior to visit. Allergies Allergen Reactions Codeine Phosphate S: here with daughter who is visiting from [place] Overall doing well. Had one bout of low O2 sat that came and went with nebulizer (thinks she might have reacted to a cat). Ankles swell a bit. Nothing too dramatic. Went to [place] and ate out a lot that she connected with increased salt in her diet. Improved since she returned home. Appetite good Has lost 5 lbs over past 6 months (lost her in Nov) No f/c No n/v/constipation/diarrhea No urinary sx except nocturia 1 x or more depending on intake BP at home 131-152/67-75, HR 60-76. Average about 130s/70 Had one bout of rapid palpitations (HR to 112) but only lasted very briefly and was o/w asymptomatic O: Patient Vitals for the past 24 hrs: Pulse BP 01/25/24 1507 78 136/69 Weight 57.6 kg General: looks well Eye: clear Neck: jvp normal CV: RRR Resp: few late insp squeaks and rhonchi in bases Abd: soft and nt and nabs Ext: tr t0 1+ pretib/ankle edema r>l Skin: no rash Neuro: mild fine action tremor, no drift, nf motor Psych: mood and affect normal Office UA: Specific gravity 1.015, pH 5, leukocytes trace to 1+. Sediment contains moderate squamous cells and WBCs. Rare hyaline cast. Latest Reference Range & Units 01/25/24 15:56 01/25/24 16:00 WBC 4.0 - 9.5 x10(3)/mcL 7.8 RBC 4.00 - 5.21 x10(6)/mcL 4.39 Hemoglobin 11.7 - 15.5 g/dL 13.1 Hematocrit 35.7 - 45.8 % 40.6 MCV 82.6 - 94.4 fL 92.5 MCH 27.1 - 32.0 pg 29.8 MCHC 31.7 - 35.0 g/dL 32.3 RDWSD 37.0 - 46.0 fL 44.4 RDWCV 11.5 - 14.1 % 13.1 Platelets 145 - 357 x10(3)/mcL 248 MPV 7.6 - 12.9 fL 9.2 nRBC % Auto % 0.0 nRBC Abs Auto 0.000 - 0.000 x10(3)/mcL 0.000 Neutr Abs (ANC) 1.70 - 6.10 x10(3)/mcL 5.15 Neutrophils % % 65.8 Immature Gran % % 0.50 Lymphocytes % % 19.9 Monocytes % % 10.8 Eosinophils % % 2.0 Basophils % % 1.0 Miriam Gran Abs 0.00 - 0.04 x10(3)/mcL 0.04 Lymphocytes Abs 0.9 - 3.2 x10(3)/mcL 1.6 Monocyte Abs 0.3 - 0.9 x10(3)/mcL 0.8 Eosinophils Abs 0.0 - 0.4 x10(3)/mcL 0.2 Basophils Abs 0.0 - 0.1 x10(3)/mcL 0.1 Sodium 135 - 145 mmol/L 132 (L) Potassium 3.5 - 5.0 mmol/L 4.5 Chloride 98 - 107 mmol/L 98 CO2 22 - 31 mmol/L 27 Anion Gap 5 - 15 mmol/L 7 BUN 8 - 18 mg/dL 28 (H) Creatinine 0.70 - 1.20 mg/dL 1.28 (H) Estimated GFR >=60 mL/min/1.73 m?? 41 (L) Calcium 8.5 - 10.5 mg/dL 9.4 Magnesium 0.69 - 1.07 mmol/L 0.92 Phosphorus 2.5 - 4.5 mg/dL 3.8 Glucose Lvl 65 - 199 mg/dL 84 Total Protein 6.1 - 8.0 g/dL 7.6 Albumin 3.2 - 5.2 g/dL 4.1 Total Bilirubin 0.2 - 1.3 mg/dL 0.4 Alk Phos 35 - 105 unit/L 84 AST 0 - 30 unit/L 28 ALT 0 - 30 unit/L 18 PTH 15 - 65 pg/mL 47 Color UA Yellow Yellow Appearance UA Clear Clear Spec Pennock UA 1.005 - 1.030 1.015 pH UA 5.0 - 8.0 6.0 Protein UA Negative mg/dL Negative Glucose UA Negative mg/dL Negative Ketones UA Negative mg/dL Negative Bilirubin UA Negative mg/dL Negative Urobilinogen UA Normal mg/dL Normal Blood UA Negative mg/dL Negative Leukocytes UA Negative mcL Small ! Nitrite UA Negative Negative WBC UA 0 - 5 /HPF 6 (H) RBC UA 0 - 4 /HPF 1 Hyaline Cast UA 0 - 2 /LPF 1 Squam Epith UA <=4 /HPF 10 (H) Culture Reflexed No Alb/Cr Ratio, Random 0 - 29 mcg/mg Cr 4 U Albumin Conc, Random mg/L 3.6 U Creatinine mg/dL 94 Lab Results Component Value Date WBC 9.6 (H) 03/02/2023 RBC 4.47 03/02/2023 HGB 13.4 03/02/2023 HCT 41.0 03/02/2023 MCV 91.7 03/02/2023 MCH 30.0 03/02/2023 MCHC 32.7 03/02/2023 PLATELET 269 03/02/2023 RDWCV 12.9 03/02/2023 Chemistry Component Value Date/Time NA 133 04/30/2023 0000 K 3.8 04/30/2023 0000 CL 98 04/30/2023 0000 CO2 32 04/30/2023 0000 BUN 27 04/30/2023 0000 CREATININE 1.1 04/30/2023 0000 Component Value Date/Time CALCIUM 8.9 04/30/2023 0000 ALKPHOS 89 03/02/2023 1502 AST 24 03/02/2023 1502 ALT 14 03/02/2023 1502 BILITOT 0.4 03/02/2023 1502 Lab Results Component Value Date PHOS 3.8 04/30/2023 Latest Reference Range & Units 03/02/23 15:02 04/30/23 00:00 01/25/24 15:56 01/25/24 16:00 Creatinine 0.70 - 1.20 mg/dL 1.17 1.1 (E) 1.28 (H) Estimated GFR >=60 mL/min/1.73 m?? 45 (L) 48.94 (E) 41 (L) Alb/Cr Ratio, Random 0 - 29 mcg/mg Cr 4 A/P: CKD stage G3b/A1 likely related to hypertension with superimposed aging related changes. Creatinineup slightly today compared to previous baseline, but this may reflect the addition of spironolactone and improved blood pressure control. Urine quite bland and I doubt there is any superimposed process. We will check labs at her local facility in the fall to make sure she is stable and I will in a year if all is stable. We discussed the possible addition of a sodium glucose transporter inhibitor,but with her history of stability, the absence of albuminuria, and age, I am reluctant to rock the boat. They are agreeable with this plan. Proteinuria: No abnormal proteinuria/albuminuria BP/volume status: Controlled Diabetes control: n/a Lytes/acid-base: Mild stable hyponatremia without definite symptoms. She is on a low-dose of spironolactone which is greatly improved her blood pressure and has not worsened her hyponatremia. Will continue with current recipe. MBD: Favorable parameters Nutrition: Discussed healthy diet and lifestyle including emphasis on fruits and vegetables and minimization of highly processed foods Anemia: Hemoglobin normal F/u one year and prn Labs locally this fall CC: Uyen Gerard MD [address] [place] [address] * Manuel Ricks MD - 01/25/2024 3:00 PM EDT Dear Jerri, Here the robison lab results from yesterday's visit. Sodium 132-stable Other electrolytes normal Creatinine 1.28 mg/dL-this is slightly higher than your baseline but only minimally different. It probably reflects the improved blood pressure control on the spironolactone. Also, judging by how concentrated the urine was, you might have been a little bit dehydrated at the time the blood was drawn. This is not a worry, but we should repeat this in about 3 months as we plan to do anyway. Calcium, phosphorus, magnesium, blood sugar, albumin, liver tests, and parathyroid hormone are all completely normal. The urine had a few white blood cells in it, but not enough to suggest an infection. The amount of protein was within normal limits. This is a very good result. The blood counts were completely normal. All in all, I think you are doing very well. I would like to repeat the labs in April or so. Let me know where you would like to have them done. Also, let me know any questions or comments. Sincerely, Angel Ricks MD documented in this encounter Plan of Treatment Upcoming Encounters Date Type Department Care Team (Late st Contact Info) Description 05/18/2024 4:30 PM EDT [place] [address] Carmelina Donaldson MD [facility] [place] [address] 05/31/2024 1:00 PM EDT [place] [address] documented as of this encounter Procedures Procedure Name Priority Date/Time Associated Diagnosis Comments URINALYSIS MICROSCOPIC EXAM STAT 01/25/2024 4:00 PM EDT U ALBUMIN/CRE RATIO STAT 01/25/2024 4 :00 PM EDT Stage 3 chronic kidney disease, unspecified whether stage 3a or 3b CKD URINALYSIS WITH REFLEX CULTURE STAT 01/25/2024 4:00 [...] unspecified whether stage 3a or 3b CKD documented in this encounter Results * (ABNORMAL) Urinalysis Microscopic Exam (01/25/2024 4:00 PM EDT) RBC, Urine 1 0 - 4 /HPF [facility] WBC, Urine 6(H) 0 - 5 /HPF [facility] Squamous Epithelial Cells Raw Data, Urine 10(H) <=4 /HPF [facility] Hyaline Casts, Urine 1 0 - 2 /LPF [facility] Urine NS 01/25/2024 4:00 PM EDT 01/25/2024 5:08 PM EDT Narrative Resulting Agency Comment Spec In Lab Manuel Ricks MD URINE ORDERABLES [facility] [place] [address] * (ABNORMAL) Urinalysis with reflex Culture (01/25/2024 4:00 PM EDT) Glucose, Urine Dipstick Negative Negative mg/dL [facility] Protein, Urine Dipstick Negative Negative mg/dL [facility] Bilirubin, Urine Dipstick Negative Negative mg/dL [facility] Comment: Clinical correlation required for positive Urine Bilirubin results as false positive may occur with some drugs and drug related products. If a false positive is suspected a serum total bilirubin should be considered if clinically indicated. Urobilinogen, Urine Dipstick Normal Normal mg/dL [facility] pH, Urn (dipstick) 6.0 5.0 - 8.0 [facility] Blood, Urine Dipstick Negative Negative mg/dL [facility] Ketone, Urine Dipstick Negative Negative mg/dL [facility] Nitrite, Urine Dipstick Negative Negative [facility] Leukocytes, Urine Dipstick Small(A) Negative [facility] Appearance, Urine Dipstick Clear Clear [facility] Specific Pennock Urine Automated 1.015 1.005 - 1.030 [facility] Color, Urine Dipstick Yellow Yellow [facility] Reflex to Culture No [facility] Urine NS 01/25/2024 4:00 PM EDT 01/25/2024 5:05 PM EDT Narrative Resulting Agency Comment Spec In Lab Manuel Ricks MD URINE ORDERABLES [facility] [place] [address] * U Albumin/Cre Ratio (01/25/2024 4:00 PM EDT) Albumin / Creatinin Ratio, Urine 4 0 - 29 mcg/mg Cr [facility] Comment: Reference Ranges: <30 [...] 2, 357? 362 Albumin, Urine 3.6 mg/L [facility] Creatinine, Urine 94 mg/dL [facility] Urine 01/25/2024 4:00 PM EDT 01/25/2024 5:06 PM EDT Narrative Resulting Agency Comment Spec In Lab Manuel Ricks MD URINE ORDERABLES [facility] [place] [address] * Differential, Automated (01/25/2024 3:56 PM EDT) Neutrophil % 65.8 % [facility] Neutrophil Absolute 5.15 1.70 - 6.10 x10(3)/[facility] Lymph % 19.9 % [facility] Lymphocytes Abs 1.6 0.9 - 3.2 x10(3)/[facility] Monocyte % 10.8 % [facility] Monocyte Abs 0.8 0.3 - 0.9 x10(3)/[facility] Eos % 2.0 % [facility] Eosinophils Abs 0.2 0.0 - 0.4 x10(3)/[facility] Basophil % 1.0 % [facility] Baso Absolute 0.1 0.0 - 0.1 x10(3)/[facility] Immature Gran % 0.50 % [facility] Comment: Immature granulocytes(IG's)percentage and absolute count will include metamyelocytes, myelocytes, and promyelocytes. Blood smears from CBCs yielding IG's will be scanned manually for concordance. If this scan disagrees with the automated IG or if promyelocytes are noted, a manual differential will be performed. Immature Gran Absolute 0.04 0.00 - 0.04 x10(3)/[facility] Blood 01/25/2024 3:56 PM EDT 01/25/2024 4:03 PM EDT Narrative Resulting Agency Comment Spec In Lab Manuel Ricks MD HEMATOLOGY ORDERABLE S [facility] [place] [address] * Hemogram (01/25/2024 3:56 PM EDT) White Blood Cell 7.8 4.0 - 9.5 x10(3)/[facility] Red Blood Cell 4.39 4.00 - 5.21 x10(6)/[facility] Hemoglobin 13.1 11.7 - 15.5 g/dL [facility] Hematocrit 40.6 35.7 - 45.8 % [facility] Mean Cell Volume 92.5 82.6 - 94.4 fL [facility] Mean Cell Hemoglobin 29.8 27.1 - 32.0 pg [facility] Mean Cell Hemoglobin Concentration 32.3 31.7 - 35.0 g/dL [facility] Platelet 248 145 - 357 x10(3)/[facility] RDW Standard Deviation 44.4 37.0 - 46.0 fL [facility] RDW coefficient of variation 13.1 11.5 - 14.1 % [facility] Mean Platelet Volume 9.2 7.6 - 12.9 fL [facility] NRBC% auto 0.0 % [facility] NRBC Absolute 0.000 0.000 - 0.000 x10(3)/[facility] Blood 01/25/2024 3:56 PM EDT 01/25/2024 4:03 PM EDT Narrative Resulting Agency Comment Spec In Lab Manuel Ricks MD HEMATOLOGY ORDERABLE S Performing Organization Address [facility]/ZIP Co de Phone Number [facility] [place] [address] * Phosphorus (01/25/2024 3:56 PM EDT) Phosphorus 3.8 2.5 - 4.5 mg/dL [facility] Blood 01/25/2024 3:56 PM EDT 01/25/2024 4:03 PM EDT Narrative Resulting Agency Comment Spec In Lab Manuel Ricks MD CHEMISTRY ORDERABLES Performing Organization Address [facility]/ZIP Co de Phone Number [facility] [place] [address] * PTH (01/25/2024 3:56 PM EDT) Parathyroid Hormone 47 15 - 65 pg/mL [facility] Blood 01/25/2024 3:56 PM EDT 01/25/2024 4:03 PM EDT Narrative Resulting Agency Comment Spec In Lab Manuel Ricks MD CHEMISTRY ORDERABLES Performing Organization Address [facility] Co de Phone Number [facility] [place] [address] * (ABNORMAL) Comprehensive metabolic panel (non-fasting) (01/25/2024 3:56 PM EDT) Glucose 84 65 - 199 mg/dL [facility] Comment:Diabetes: >=200 mg/d L plus symptoms Blood Urea Nitrogen 28(H) 8 - 18 mg/dL [facility] Creatinine 1.28(H) 0.70 - 1.20 mg/dL [facility] Sodium 132(L) 135 - 145 mmol/L [facility] Potassium 4.5 3.5 - 5.0 mmol/L [facility] Comment: Please note: ??Patients with WBC >100,000 may have falsely elevated Potassium levels. ??For accurate Potassium quantification in these patients send serum separator tube (gold top) for subsequent determinations. ??Contact the Clinical Chemistry Laboratory if there are any questions. Chloride 98 98 - 107 mmol/L [facility] Carbon Dioxide 27 22 - 31 mmol/L [facility] Anion Gap 7 5 - 15 mmol/L [facility] Calcium 9.4 8.5 - 10.5 mg/dL [facility] Protein, Total 7.6 6.1 - 8.0 g/dL [facility] Albumin 4.1 3.2 - 5.2 g/dL [facility] Aspartate Aminotransferase 28 0 - 30 unit/L [facility] Alanine Aminotransferase 18 0 - 30 unit/L [facility] Alkaline Phosphatase 84 35 - 105 unit/L [facility] Bilirubin, Total 0.4 0.2 - 1.3 mg/dL [facility] Est Glomerular Filtration Rate 41(L) >=60 mL/min/1. 73 m?? [facility] Comment: This patient's estimated [...] In Lab Manuel Ricks MD CHEMISTRY ORDERABLES [facility] [place] [address] * Magnesium (01/25/2024 3:56 PM EDT) Magnesium 0.92 0.69 - 1.07 mmol/L [facility] Blood 01/25/2024 3:56 PM EDT 01/25/2024 4:03 PM EDT Narrative Resulting Agency Comment Spec In Lab Manuel Ricks MD CHEMISTRY ORDERABLES [facility] [place] [address] documented in this encounter Visit Diagnoses Diagnosis Stage 3 chronic kidney disease, unspecified whether stage 3a or 3b CKD Hypertension, unspecified type Hyponatremia Hyposmolality and/or hyponatremia documented in this encounter Care Teams Swimming Teacher Relationship Specialty Start Date End Date Uyen Gerard MD [address] [place] [address] PCP - General 07/01/13 documented as of this encounter
--- OUTSIDE RECORDS SUMMARY | 2024-04-26 02:19 | XMS_ITS | Encounter Summary ---
Author Organization [facility] [place] [address] Care Team Providers Care Freelance Photographer Name Role Phone Uyen Gerard MD Primary Care Provider [phone] Encounter Details Date Type Department Care Team (Late st Contact Info) Description 05/01/2023 External Results Neph[place] [phone] [address] Hall, [employer] Social History Tobacco Use Types Packs/Day Years [...] 4:30 PM EDT Office [place] [phone] Carmelina Donaldson MD [facility] [place] [address] 05/31/2024 1:00 PM EDT Appointment [place] [phone] documented as of this encounter Procedures Procedure Name Priority Date/Time Associated Diagnosis Comments BASIC METABOLIC PANEL Routine 04/30/2023 documented in this encounter Results * Basic Metabolic Panel (non-fasting) (04/30/2023) Glucose 66 Blood Urea Nitrogen 27 Creatinine 1.1 Est Glomerular Filtration Rate 48.94 Sodium 133 Potassium 3.8 Chloride 98 Carbon Dioxide 32 Calcium 8.9 Phosphorus 3.8 Anion Gap 3 Magnesium 1.9 mg/dL Blood 04/30/2023 Historical Provider CHEMISTRY ORDERAB LES documented in this encounter Visit Diagnoses Not on filedocumented in this encounter Care Teams Freelance Photographer Relationship Specialty Start Date End Date Uyen Gerard MD [address] [place] [address] PCP - General 07/01/13 documented as of this encounter
--- OUTSIDE RECORDS SUMMARY | 2024-04-26 02:19 | XMS_ITS | Encounter Summary ---
Author Organization [facility] [place] [address] Care Team Providers Care Education Instructor Name Role Phone Uyen Gerard MD Primary Care Provider [phone] Encounter Details Date Type Department Care Team (Late st Contact Info) Description 07/08/2023 4:00 PM EDT [place] [phone] Carmelina Donaldson MD [facility] [place] [address] Pneumonitis; Bronchiectasis without complication Social History Tobacco Use [...] Sign Reading Time Taken Comments Blood Pressure 126/58 07/08/2023 3:30 PM EDT Pulse 68 07/08/2023 3:30 PM EDT Temperature 35.6 ??C (96.1 ??F) 07/08/2023 3:30 PM ED T Respiratory Rate 16 07/08/2023 3:30 PM EDT Oxygen Saturation 97% 07/08/2023 3:30 PM EDT Inhaled Oxygen Concentration - - Weight 59 kg (130 lb) 07/08/2023 3:30 PM EDT Height 160 cm (5' 3) 07/08/2023 3:30 PM EDT Body Mass Index 23.03 07/08/2023 3:30 PM EDT documented in this encounter Progress Notes * Carmelina Donaldson MD - 07/08/2023 4:00 PM EDT Images from the original note were not included. [facility] Section of Pulmonary and Critical Care Medicine Outpatient Follow Up Date of Encounter: 07/08/2023 History of Present Illness: Jerri Velasco is a pleasant 88 year old woman who has been experiencing [...] She has had repeat CT scans and the most recent in January showed worsening tree in bud opacities. She returns today with her daughter and feels that her symptoms are unchanged. She continues to have some exertional dyspnea and a productive cough in the morning. She uses Trelegy and Duo Nebs. Right now she has been managing a lot as her is home with hospice for end stage pancreatic cancer. Her daughters are all home so she feels she has sufficient support. She is not dyspneic at rest and is able to perform all of her ADLs without significant dyspnea. She does feeltired frequently. She denies fevers or chills. She denies nocturnal symptoms. She denies joint swelling or redness, skin rash, or GERD. Current Medications: Current Outpatient Medications on File Prior to Visit Medication Sig Dispense Refill spironolactone (Aldactone) 25 mg tablet Take 0.5 tablets by mouth daily. 30 tablet 3 levalbuteroL (Xopenex) 0.63 mg/3 mL Solution for Nebulization Take 3 mLs by nebulization 2 times daily. 540 mL 1 Alphagan P 0.1 % Drops Place into [...] mouth as needed. DOCUSATE SODIUM (COLACE ORAL) No current facility-administered [...] from today which showed stable nodules. There were diffuse persistent tree in bud opacities. SPIROMETRY: I personally reviewed her PFTs from last visit which showed mild airflow obstruction with air trapping and a mildly reduced DLCO. PFT Results Flowsheet Row Office Visit from 03/31/2014 in Pulmonology at [facility] Office Visit from 09/16/2013 in Pulmonology at [facility] Office Visit from 03/11/2013 in Pulmonology at [facility] PFT Results Peak Flow 300 [...] Laboratory Tests Lab Results Component Value Date SHANNAN 9.3 02/14/2022 Impression / Plan of Care: [...] but she prefers not to do this. However, sheis now considering whether or not to proceed. She obviously needs to devote her energy to her right now but will connect with me in a few months to discuss whether or not to proceed. For now her symptoms are at least stable and we will continue her current regimen. I spent 40 minutes in the care of this patient including review of notes and tests, face to face encounter, and documentation. CARMELINA DONALDSON MD 07/08/2023 4:20 PM documented in this encounter Plan of Treatment Upcoming Encounters Date Type Department Care Team (Late st Contact Info) Description 05/18/2024 4:30 PM EDT [place] [phone] Carmelina Donaldson MD [facility] [place] [address] 05/31/2024 1:00 PM EDT [place] [address] documented as of this encounter Visit Diagnoses Diagnosis Pneumonitis Pneumonia, organism unspecified Bronchiectasis without complication Bronchiectasis without acute exacerbation documented in this encounter Care Teams Education Instructor Relationship Specialty Start Date End Date Uyen Gerard MD [facility] [address] [place] [address] PCP - General 07/01/13 documented as of this encounter
--- OUTSIDE RECORDS SUMMARY | 2024-04-26 02:19 | XMS_ITS | Encounter Summary ---
Author Organization [place] [address] Care Team Providers Care Lamination Assembler Name Role Phone Uyen Gerard MD Primary Care Provider [phone] Encounter Details Date Type Department Care Team (Latest Contact Info) Description 01/18/2024 Travel Social History Tobacco Use Types Packs/Day [...] 4:30 PM EDT [place] [phone] Carmelina Donaldson MD [facility] [place] [address] 05/31/2024 1:00 PM EDT [place] [phone] documented as of this encounter Visit Diagnoses Not on filedocumented in this encounter Care Teams Lamination Assembler Relationship Specialty Start Date End Date Uyen Gerard MD [facility] [address] [place] [address] PCP - General 07/01/13 documented as of this encounter
--- OUTSIDE RECORDS SUMMARY | 2024-04-26 02:19 | XMS_ITS | Encounter Summary ---
Author Organization [facility] [place] [address] Care Team Providers Care Guidance Consultant Name Role Phone Uyen Gerard MD Primary Care Provider [phone] Encounter Details Date Type Department Care Team (Late st Contact Info) Description 03/06/2022 Notes Only Nephrology Hypertension at [facility] [place] [place] [address] Manuel Ricks MD [facility] [place] [place] [address] Social History Tobacco Use Types Packs/Day Years [...] documented as of this encounter Progress Notes * Manuel Ricks MD - 03/06/2022 4:51 PM EDT Reviewed labs with patient. Cr up, Na a bit better. Feels fine. BP normal. Limiting fluids to 1.5L/d but thirsty in hot weather. Will recheck in two weeks. documented in this encounter Plan of Treatment Upcoming Encounters Date Type Department Care Team (Late st Contact Info) Description 05/18/2024 4:30 PM EDT Office [place] [address] Carmelina Donaldson MD [facility] [place] [address] 05/31/2024 1:00 PM EDT Appointment [place] [address] documented as of this encounter Visit Diagnoses Diagnosis Hyponatremia Hyposmolality and/or hyponatremia documented in this encounter Care Teams Guidance Consultant Relationship Specialty Start Date End Date Uyen Gerard MD [facility] [address] [facility] [address] [place] [address] PCP - General 07/01/13 documented as of this encounter
--- OUTSIDE RECORDS SUMMARY | 2024-04-26 02:19 | XMS_ITS | Encounter Summary ---
Author Organization [facility] [address] Care Team Providers Care Glass Blowing Instructor Name Role Phone Uyen Geradr MD Primary Care Provider [phone] Reason for Visit * Reason Onset Date Comments Other 08/07/2022 DME - Nebulizer Encounter Details Date Type Department Care Team (Late st Contact Info) Description 08/07/2022 [place] [address] Austin Woodruff RN Other (DME - Nebulizer) Social History Tobacco Use Types Packs/Day Years [...] encounter Miscellaneous Notes * Telephone Encounter - Austin Woodruff RN - 08/08/2022 10:10 AM EST Faxed completed DME - Nebulizer order, signed by Dr. Donaldson, to [facility] office. Attached to this was the following items: Patient Demographics, Office Visit Notes dated 08/06/2022 Fax submission confirmation time stamped for 08/07/2022 @ 9638. 15 pages with cover sheet. documented in this encounter Plan of Treatment Upcoming Encounters Date Type Department Care Team (Late st Contact Info) Description 05/18/2024 4:30 PM EDT Office [place] [address] Carmelina Donaldson MD [facility] [place] [address] 05/31/2024 1:00 PM EDT Appointment [place] [phone] documented as of this encounter Visit Diagnoses Not on filedocumented in this encounter Care Teams Glass Blowing Instructor Relationship Specialty Start Date End Date Uyen Gerard MD [address] [place] [address] PCP - General 07/01/13 documented as of this encounter
--- OUTSIDE RECORDS SUMMARY | 2024-04-26 02:19 | XMS_ITS | Encounter Summary ---
[facility] [place] [address] Care Team Providers Care Catapult And Arresting Gear Officer Name Role Phone Uyen Gerard MD Primary Care Provider [phone] Encounter Details Date Type Department Care Team (Latest Contact Info) Description 01/25/2024 Travel Social History Tobacco Use Types Packs/Day [...] 4:30 PM EDT Office [place] [phone] Carmelina Donaldson MD [facility] [place] [address] 05/31/2024 1:00 PM EDT [place]oint[place] [address] documented as of this encounter Visit Diagnoses Not on filedocumented in this encounter Care Teams Catapult And Arresting Gear Officer Relationship Specialty Start Date End Date Uyen Gerard MD [facility] [address] [place] [address] PCP - General 07/01/13 documented as of this encounter
--- OUTSIDE RECORDS SUMMARY | 2024-04-26 02:19 | XMS_ITS | Encounter Summary ---
[place] [address] Care Team Providers Care Lumpia Wrapper Maker Name Role Phone Uyen Gerard MD Primary Care Provider [phone] Reason for Referral * Diagnostic Test (Routine) - Closed Specialty Diagnoses / Procedures Referred By Contac t Referred To Contact Radiology Diagnoses Pulmonary nodule Procedures CT Chest wo Contrast (Generic) Carmelina Donaldson MD [facility] [place] [address] [facility] [place] [address] Referral ID Status Reason Start Date Expiration Date V isits Requested Visits Authorized [id number] Closed Specialty Service Requested 01/07/2023 07/10/2024 1 1 Reason for Visit * Diagnostic Test (Routine) - Closed Specialty Diagnoses / Procedures Referred By Conttaj callahan Referred To Contact Radiology Diagnoses Pulmonary nodule Procedures CT Chest wo Contrast (Generic) Carmelina Donaldson MD [facility] [place] [address] [facility] [place] [address] Referral ID Status Reason Start Date Expiration Date V isits Requested Visits Authorized [id number] Closed Specialty Service Requested 01/07/2023 07/10/2024 1 1 Encounter Details Date Type Department Care Team (Latest Contact Info) Description 07/08/2023 2:47 PM EDT - 07/08/2023 11:59 PM EDT Hospital Encounter CT Scan at [facility] [place] [phone] Carmelina Donaldson MD [facility] [place] [address] Pulmonary nodule Discharge Disposition: Home Social History [...] Dispensed Refills Start Date End Date fluticasone srfrowy-adxbarhtchjp-j ilanteroL (Trelegy Ellipta) 100-62.5-25 mcg inhaler (DPI) [...] as needed. DOCUSATE SODIUM (COLACE ORAL) 01/02/2009 spironolactone (Aldactone) 25 mg tabletIndications:Esse ntial hypertension Take 0.5 tablets by mouth daily. 30 tablet 3 04/13/2023 09/25/2023 levalbuteroL (Xopenex) 0.63 mg/3 mL Solution for NebulizationIndication s:Interstitial lung disease,Bronchiectasis without complication Take 3 mLs by nebulization 2 times daily. 540 mL 1 10/08/2022 12/30/2023 Alphagan P 0.1 % Drops Place into both eyes 2 times daily. 01/28/2022 01/25/2024 omega-3 fatty acids/fish oil (OMEGA 3 FISH [...] EDT Office [place] [address] Carmelina Donaldson MD [facility] [place] [address] 05/31/2024 1:00 PM EDT [place] [address] documented as of this encounter Procedures Procedure Name Priority Date/Time Associated Diagnosis Comments CT CHEST WO CONTRAST (GENERIC) Routine 07/08/2023 2:56 PM EDT Pulmonary nodule documented in this encounter Results * CT Chest wo [...] who have questions please contact the health managed care manager that requested your imaging first. ? Narrative 07/10/2023 8:19 AM EDT EXAMINATION: CT [...] measuring 12 x 24 mm, present since 2013 with a waxing/waning nature. No new pulmonary [...] opacity measuring 12 x 24 mm,present since 2013 with a waxing/waning nature. No new pulmonary [...] patients who have questions please contactthe health managed care manager that requested your imaging first. Carmelina Donaldson MD IMG CT ORDERABLES documented in this encounter Visit Diagnoses Diagnosis Pulmonary nodule Solitary pulmonary nodule documented in this encounter Care Teams Lumpia Wrapper Maker Relationship Specialty Start Date End Date Uyen Gerard MD [address] [place] [address] PCP - General 07/01/13 documented as of this encounter
--- OUTSIDE RECORDS SUMMARY | 2024-04-26 02:19 | XMS_ITS | Encounter Summary ---
Author Organization [place] [address] Care Team Providers Care Chalk Tester Name Role Phone Uyen Gerard MD Primary Care Provider [phone] Encounter Details Date Type Department Care Team (Latest Contact Info) Description 07/08/2023 Travel Social History Tobacco Use Types Packs/Day [...] 4:30 PM EDT [place] [phone] Carmelina Donaldson MD [facility] [address] 05/31/2024 1:00 PM EDT [place] [address] documented as of this encounter Visit Diagnoses Not on filedocumented in this encounter Care Teams Chalk Tester Relationship Specialty Start Date End Date Uyen Gerard MD [facility] [address] [place] [address] PCP - General 07/01/13 documented as of this encounter
--- OUTSIDE RECORDS SUMMARY | 2024-04-26 02:19 | XMS_ITS | Encounter Summary ---
Author Organization [facility] [address] Care Team Providers Care Roller Picker Name Role Phone Uyen Gerard MD Primary Care Provider [phone] Encounter Details Date Type Department Care Team (Latest Contact Info) Description 08/06/2022 Travel Social History Tobacco Use Types Packs/Day [...] 4:30 PM EDT [place] [address] Carmelina Donaldson MD [facility] [place] [address] 05/31/2024 1:00 PM EDT [place] [address] documented as of this encounter Visit Diagnoses Not on filedocumented in this encounter Care Teams Roller Picker Relationship Specialty Start Date End Date Uyen Gerard MD [facility] [address] [place] [address] PCP - General 07/01/13 documented as of this encounter
--- OUTSIDE RECORDS SUMMARY | 2024-04-26 02:19 | XMS_ITS | Encounter Summary ---
Author Organization [facility] [place] [address] Care Team Providers Care Track Subway Repair Supervisor Name Role Phone Uyen Gerard MD Primary Care Provider [phone] Encounter Details Date Type Department Care Team (Late st Contact Info) Description 09/15/[address] [facility] [place] [address] Marisol Mas RN Interstitial lung disease; Bronchiectasis without complication Social [...] encounter Miscellaneous Notes * Telephone Encounter - Marisol Mas RN - 09/15/2022 9:48 AM EST Copied from [facility] #[id number]. Topic: Specialty Dept CRMs - Generic Call >> Sep 15, 2022 9:28 AM Melissa Callejas wrote: Specialist: Dr Donaldson Relationship (if other than patient-full name): none Reason for Call: Pt states that the script that was called into [place] is not available nordoes she want to wait until it is available. Can you please call it into [facility]. Please call her to discuss. I have called pt to clarify the message. Pt states that when she called [facility], she was told the levalbuterol is out of stock and will need to wait until they have the medication back. Pt requested to send a rx to [facility] to be refilled lucius as she only has one vial left. I have told pt I will send this message to Dr. Donaldson. MATHEW Breaux, RN Department of Pulmonary 5C, [facility] Pager: [phone] documented in this encounter Plan of Treatment Upcoming Encounters Date Type Department Care Team (Late st Contact Info) Description 05/18/2024 4:30 PM EDT Office [place] [phone] Carmelina Donaldson MD [facility] [place] [address] 05/31/2024 1:00 PM EDT Appointment [place] [address] documented as of this encounter Visit Diagnoses Diagnosis Interstitial lung disease Postinflammatory pulmonary fibrosis Bronchiectasis without complication Bronchiectasis without acute exacerbation documented in this encounter Care Teams Track Subway Repair Supervisor Relationship Specialty Start Date End Date Uyen Gerard MD [address] [place] [address] PCP - General 07/01/13 documented as of this encounter
--- OUTSIDE RECORDS SUMMARY | 2024-04-26 02:19 | XMS_ITS | Encounter Summary ---
Author Organization [facility] [place] [place] [address] Care Team Providers Care Bath Mixer Name Role Phone Uyen Gerard MD Primary Care Provider [phone] Reason for Visit * Reason Onset Date Comments Other 03/24/[address] scan Encounter Details Date Type Department Care Team (Late st Contact Info) Description 03/24/2022 Telephone Pulmonology at [facility] [place] [address] Ana Paula Damon RN Other (Low CT scan) Social History Tobacco Use Types Packs/Day Years [...] encounter Miscellaneous Notes * Telephone Encounter - Ana Paula Damon RN - 03/24/2022 1:35 PM EDT I have received a VM from Jacky @ [facility] from Dr. Gerard office, (p) [phone], ext.[phone]. She is calling on behalf of the Pt today to inquire about a f/u low dose chest CT scan. Pt expressed concern and anxiety about when this will be done so Jacky is reaching out for Pt. Jacky requests call back at number provided. I will defer to Dr. Donaldson for plan of care. AnaP aula Damon RN Department of Pulmonary 5C, [facility] / Pager: [phone] documented in this encounter Plan of Treatment Upcoming Encounters Date Type Department Care Team (Late st Contact Info) Description 05/18/2024 4:30 PM EDT [place] [phone] Carmelina Donaldson MD [facility] [place] [address] 05/31/2024 1:00 PM EDT [place] [address] documented as of this encounter Visit Diagnoses Not on filedocumented in this encounter Care Teams Bath Mixer Relationship Specialty Start Date End Date Uyen Gerard MD [facility] [address] [place] [address] PCP - General 07/01/13 documented as of this encounter
--- OUTSIDE RECORDS SUMMARY | 2024-04-26 02:19 | XMS_ITS | Encounter Summary ---
Author Organization [facility] [place] [address] Care Team Providers Care Attendance Officer Name Role Phone Uyen Gerard MD Primary Care Provider [phone] Encounter Details Date Type Department Care Team (Latest Contact Info) Description 01/05/2023 Travel Social History Tobacco Use Types Packs/Day [...] 4:30 PM EDT [place] [address] Carmelina Donaldson MD [facility] [place] [address] 05/31/2024 1:00 PM EDT [place] [address] documented as of this encounter Visit Diagnoses Not on filedocumented in this encounter Care Teams Attendance Officer Relationship Specialty Start Date End Date Uyen Gerard MD [facility] [address] [place] [address] PCP - General 07/01/13 documented as of this encounter
--- OUTSIDE RECORDS SUMMARY | 2024-04-26 02:19 | XMS_ITS | Encounter Summary ---
Author Organization [facility] [place] [address] Care Team Providers Care Peritoneal Dialysis Registered Nurse Name Role Phone Uyen Gerard MD Primary Care Provider Encounter Details Date Type Department Care Team (Late st Contact Info) Description 04/13/2023 Orders Only [place] [address] Manuel Ricks MD [facility] [place] [address] Essential hypertension; Stage 3a chronic kidney disease Social History [...] Progress Notes * Manuel Ricks MD - 04/13/2023 11:12 AM EDT Patient submitted bp log for summer since holding spironolactone. She reports more tendency to ankle/leg swelling but no other sx. Willing to use ERICH hose and try lower dose of spironolactone (12.5mg/d). Edema is bothersome to her. BP range 103/58 to 163/78 Most bps controlled 29/47 readings <140 sys with many <120. Use erich hose prn Will resume spironolactone at lower dose (12.5mg/d) Recheck lytes and cr in 2-4 weeks Has had hyponatremia in past Follows a relatively low Na diet but occasionally uses, this is ok for now F/u by telephone in 2-4 weeks to discuss response to above documented in this encounter Plan of Treatment Upcoming Encounters Date Type Department Care Team (Late st Contact Info) Description 05/18/2024 4:30 PM EDT Office [place] [phone] Carmelina Donaldson MD [facility] [place] [address] 05/31/2024 1:00 PM EDT Appointment [place] [address] Scheduled Orders Name Type Priority Associated Diagnoses Orde r Schedule Basic Metabolic Panel (non-fasting) Lab Routine Stage 3a chronic kidney disease Expected: 05/04/2023 (Approximate), Expires: 04/13/2024 Phosphorus Lab Routine Stage 3a chronic kidney disease Expected: 05/04/2023 (Approximate), Expires: 04/13/2024 documented as of this encounter Visit Diagnoses Diagnosis Essential hypertension Unspecified essential hypertension Stage 3a chronic kidney disease documented in this encounter Care Teams Peritoneal Dialysis Registered Nurse Relationship Specialty Start Date End Date Uyen Gerard MD [facility] [address] [place] [address] PCP - General 07/01/13 documented as of this encounter
--- OUTSIDE RECORDS SUMMARY | 2024-04-26 02:19 | XMS_ITS | Encounter Summary ---
Author Organization [facility] [place] [address] Care Team Providers Care Ambulance Operations Supervisor Name Role Phone Uyen Gerard MD Primary Care Provider [phone] Encounter Details Date Type Department Care Team (Late st Contact Info) Description 10/13/2022 Tele[place] [address] Uyen [place] Social History Tobacco Use Types [...] 4:30 PM EDT Office [place] [address] Carmelina Donaldson MD [facility] [place] [address] 05/31/2024 1:00 PM EDT [place]oint[place] [address] documented as of this encounter Visit Diagnoses Not on filedocumented in this encounter Care Teams Ambulance Operations Supervisor Relationship Specialty Start Date End Date Uyen Gerard MD [address] [place] [address] PCP - General 07/01/13 documented as of this encounter
--- OUTSIDE RECORDS SUMMARY | 2024-04-26 02:19 | XMS_ITS | Encounter Summary ---
Author Organization [facility] [place] [address] Care Team Providers Care Director Counseling Bureau Name Role Phone Uyen Gerard MD Primary Care Provider [phone] Encounter Details Date Type Department Care Team (Latest Contact Info) Description 01/20/2024 Travel Social History Tobacco Use Types Packs/Day [...] 4:30 PM EDT Office [place] [address] Carmelina Donaldson MD [facility] [place] [address] 05/31/2024 1:00 PM EDT [place]ointment [place] [address] documented as of this encounter Visit Diagnoses Not on filedocumented in this encounter Care Teams Director Counseling Bureau Relationship Specialty Start Date End Date Uyen Gerard MD [facility] [address] [place] [address] PCP - General 07/01/13 documented as of this encounter
--- OUTSIDE RECORDS SUMMARY | 2024-04-26 02:19 | XMS_ITS | Encounter Summary ---
Author Organization [facility] [place] [address] Care Team Providers Care Grocery Store Bagger Name Role Phone Uyen Gerard MD Primary Care Provider [phone] Encounter Details Date Type Department Care Team (Late st Contact Info) Description 10/10/2022 [place] [phone] Uyen [place] Social History Tobacco Use Types [...] 4:30 PM EDT [place] [address] Carmelina Donaldson MD [facility] [place] [address] 05/31/2024 1:00 PM EDT [place] [address] documented as of this encounter Visit Diagnoses Not on filedocumented in this encounter Care Teams Grocery Store Bagger Relationship Specialty Start Date End Date Uyen Gerard MD [address] [place] [address] PCP - General 07/01/13 documented as of this encounter
--- OUTSIDE RECORDS SUMMARY | 2024-04-26 02:20 | XMS_ITS | Encounter Summary ---
Author Organization [facility] [place] [address] Care Team Providers Care Acid Concentrator Name Role Phone Uyen Gerard MD Primary Care Provider [phone] Reason for Referral * Diagnostic Test (Routine) - Closed Specialty Diagnoses / Procedures Referred By Contac t Referred To Contact Radiology Diagnoses Bronchiectasis without complication Procedures CT Chest wo Contrast (Generic) Jack Martinez MD [facility] [place] [address] [facility] [place] [address] Referral ID Status Reason Start Date Expiration Date V isits Requested Visits Authorized [id number] Closed Specialty Service Requested 01/07/2021 07/10/2022 1 1 Reason for Visit * Diagnostic Test (Routine) - Closed Specialty Diagnoses / Procedures Referred By Contac t Referred To Contact Radiology Diagnoses Bronchiectasis without complication Procedures CT Chest wo Contrast (Generic) Jack Martinez MD [facility] [place] [address] [facility] [place] [address] Referral ID Status Reason Start Date Expiration Date V isits Requested Visits Authorized [id number] Closed Specialty Service Requested 01/07/2021 07/10/2022 1 1 Encounter Details Date Type Department Care Team (Latest Contact Info) Description 05/08/2021 9:54 AM EDT - 05/08/2021 11:59 PM EDT Hospital Encounter [place] [address] Jack Martinez MD [facility] [place] [address] Bronchiectasis without complication Discharge Disposition: Home Social [...] Dispensed Refills Start Date End Date fluticasone cgovkdo-ltifbpkcyhqo-rdt anteroL (Trelegy Ellipta) 100-62.5-25 mcg inhaler (DPI) daily. 02/20/2020 apixaban (Eliquis) 5 mg Tablet Take 5 [...] as needed. DOCUSATE SODIUM (COLACE ORAL) 01/02/2009 omega-3 fatty acids/fish oil (OMEGA 3 FISH OIL ORAL) Take by mouth daily. 01/25/2024 fluticasone/umeclidin/vi lanter (TRELEGY ELLIPTA INHL) Inhale into the lungs daily. 01/25/2024 spironolactone (Aldactone) 25 mg TabletIndications:Essent ial hypertension Take 1 tablet by mouth daily. 90 tablet 5 11/05/2020 12/16/2021 levalbuterol (XOPENEX HFA) 45 mcg/actuation HFA Aerosol Inhaler Inhale 1-2 puffs into the lungs every 4 hours as needed. 01/20/2024 documented as of this encounter Plan of Treatment Upcoming Encounters Date Type Department Care Team (Late st Contact Info) Description 05/18/2024 4:30 PM EDT Office Visit [place] [phone] Carmelina Donaldson MD [facility] [place] [address] 05/31/2024 1:00 PM EDT Appointment [place] [phone] documented as of this encounter Procedures Procedure Name Priority Date/Time Associated Diagnosis Comments CT CHEST WO CONTRAST (GENERIC) Routine 05/08/2021 10:19 AM EDT Bronchiectasis without complication documented in this encounter Results * (ABNORMAL) CT Chest wo Contrast (Generic) (05/08/2021 10:19 AM EDT) Anatomical Region Laterality Modality Chest Computed Tomogra phy 05/08/2021 10:3 5 AM EDT Impressions 05/08/2021 12:44 PM EDT Increased conspicuity of tree-in-bud opacities involving all lobes of both lungs. Associated bronchiectasis seen in the middle lobe and lingula, but also in the right upper lobe. These findings are most compatible with infectious/inflammatory small airway disease; specifically may consider AMANUEL. UNEXPECTED FINDING of two pleural-based nodular consolidative changes, one at the right lung base and one at the left lung base. These may be related to the underlying infection/inflammation, however, follow-up noncontrast, low-dose CT of the chest in 3 months is recommended to exclude any worrisome growth over time. Thank you for letting us participate in the care of this patient. ??If you are a health care provider and have any questions regarding this report, please contact the number below. ??For patients who have questions please contact the health school child care attendant that requested your imaging first. ? Electronically signed by: Delia Richard MD, [facility] ([phone]), at 05/08/2021 12:44 PM Narrative 05/08/2021 12:44 PM EDT EXAMINATION: CT CHEST WO CONTRAST (GENERIC) CLINICAL HISTORY: Bronchiectasis TECHNIQUE: 3 mm thick axial contiguous sections were obtained through the chest via helical acquisition without intravenous contrast administration. Thin-section reconstructions as well as coronal and sagittal reformatted images were generated. COMPARISON: 04/25/2015 FINDINGS: Pulmonary parenchyma and airways: Increased tree-in-bud opacities in the bilateral lungs, now involving all lobes of both lungs. Mild bronchiectasis in the right upper lobe as well as primarily in the middle lobe and lingula. Focal pleural-based 20 mm nodularity on the right and 17 mm nodularity on the left (series 3, image 78 and 89). Pleura: No effusion. Lymph nodes: No lymphadenopathy. Heart, pericardium, and great vessels: Mitral annular calcification. Mild coronary artery atherosclerotic calcification. Size of the heart is normal. Other mediastinal structures: No significant findings. Lower neck: No significant findings. Upper abdomen: Cholelithiasis. Right kidney is absent. Body wall soft tissues: No significant findings. Skeletal structures: Scoliotic alignment. No acute pathology. Resulting Agency Comment Unexpected Finding Jack Martinez MD [facility] CT ORDERABLES documented in this encounter Visit Diagnoses Diagnosis Bronchiectasis without complication Bronchiectasis without acute exacerbation documented in this encounter Care Teams Acid Concentrator Relationship Specialty Start Date End Date Uyen Gerard MD [facility] [address] [facility] [place] [address] PCP - General 07/01/13 documented as of this encounter
--- OUTSIDE RECORDS SUMMARY | 2024-04-26 02:20 | XMS_ITS | Encounter Summary ---
Author Organization [facility] [place] [address] Care Team Providers Care Family Medicine Resident Name Role Phone Michael Perez MD Primary Care Provider [phone] Reason for Visit * Reason Onset Date Comments Medication Refill 04/05/2012 Encounter Details Date Type Department Care Team ([facility] Contact Info) Description 04/05/2012 Refill Pulmonology at [address] [address] Ming Carter MD [facility] AT [address] [address] Medication refill Social History Tobacco Use Types Packs/Day Years Used Date Smoking Tobacco: Never Alcohol Use Standard Drinks/Week Comments Yes 7 (1 standard drink = 0.6 oz pur e alcohol) Sex and Gender Information Value Date Recorded Sex Assigned at Female 03/31/2021 2:10 PM EDT Gender Identity Female 01/18/2024 2:59 PM EDT Sexual Orientation Not on file documented as of this encounter Miscellaneous Notes * Telephone Encounter - Duncan Felix LPN - 04/05/2012 10:36 AM EDT AMINATA 09/25/[address] Carter * Telephone Encounter - Radha Pedraza-Aurea - 04/05/2012 10:20 AM EDT NAME OF MEDICATION AND DOSE: Spiriva - dose and frequency as stated in medication list. *Please mail script to home address. [address] [place] [address] documented in this encounter Plan of Treatment Upcoming Encounters Date Type Department Care Team (Late st Contact Info) Description 05/18/2024 4:30 PM EDT Office [place] [address] Carmelina Donaldson MD [facility] [place] [address] 05/31/2024 1:00 PM EDT Appointment [place] [address] documented as of this encounter Visit Diagnoses Diagnosis Medication refill Issue of repeat prescriptions documented in this encounter Care Teams Family Medicine Resident Relationship Specialty Start Date End Date Michael Perez MD PCP - General 04/24/11 03/10/13 documented as of this encounter
--- OUTSIDE RECORDS SUMMARY | 2024-04-26 02:20 | XMS_ITS | Encounter Summary ---
Author Organization [facility] [place] [address] Care Team Providers Care Lead Pl Sql Developer Name Role Phone Uyen Gerard MD Primary Care Provider [phone] Reason for Visit * Reason Comments Medication Refill Encounter Details Date Type Department Care Team (Late st Contact Info) Description 02/06/2020 Refill [place]ph[place] [phone] Nicolás Gallagher MD [facility] [place] [address] Essential hypertension Social History Tobacco Use Types [...] 4:30 PM EDT [place] [phone] Carmelina Donaldson MD [facility] [place] [address] 05/31/2024 1:00 PM EDT [place] [address] documented as of this encounter Visit Diagnoses Diagnosis Essential hypertension Unspecified essential hypertension documented in this encounter Care Teams Lead Pl Sql Developer Relationship Specialty Start Date End Date Uyen Gerard MD [address] [place] [address] PCP - General 07/01/13 documented as of this encounter
--- OUTSIDE RECORDS SUMMARY | 2024-04-26 02:20 | XMS_ITS | Encounter Summary ---
Author Organization [facility] [place] [address] Care Team Providers Care Blocking Machine Operator Second Name Role Phone Uyen Gerard MD Primary Care Provider [phone] Reason for Visit * Reason Onset Date Comments Results 03/16/2013 Encounter Details Date Type Department Care Team ([facility] st Contact Info) Description 03/16/2013 Telephone Pulmonology at [address] [address] iMng Carter MD [facility] AT [address] [address] Results Social History Tobacco Use Types Packs/Day Years [...] encounter Miscellaneous Notes * Telephone Encounter - Jennie Broussard RN - 03/16/2013 11:02 AM EDT Spoke to patient, discussed results as outlined by Dr. Carter. Patient will spanish moss picker copy of reportin office on Thursday. * Telephone Encounter - Jennie Broussard RN - 03/16/2013 10:[address] Carter -- Patient requesting results review, labs available in E- from 03/11. Please advise, Thanks TEF. * Telephone Encounter - Claudia Liang - 03/16/2013 10:08 AM EDT WHICH RESULTS: labs WHERE WAS IT DONE : [facility] WHEN WAS IT DONE: 03/11 documented in this encounter Plan of Treatment Upcoming Encounters Date Type Department Care Team (Late st Contact Info) Description 05/18/2024 4:30 PM EDT [place] [address] Carmelina Donaldson MD [facility] [place] [address] 05/31/2024 1:00 PM EDT [place] [address] documented as of this encounter Visit Diagnoses Not on filedocumented in this encounter Care Teams Blocking Machine Operator Second Relationship Specialty Start Date End Date Uyen Gerard MD [address] [place] [address] PCP - General 03/14/13 06/30/13 documented as of this encounter
--- OUTSIDE RECORDS SUMMARY | 2024-04-26 02:20 | XMS_ITS | Encounter Summary ---
Author Organization [facility] [place] [address] Care Team Providers Care Raised Printer Name Role Phone Uyen Gerard MD Primary Care Provider [phone] Encounter Details Date Type Department Care Team (Latest Contact Info) Description 03/02/2015 10:00 AM EDT Office Visit [place] [address] Marline Maradiaga MD [facility] [place] [address] Essential hypertension Discharge Disposition: Home Social History Tobacco Use [...] Sign Reading Time Taken Comments Blood Pressure 166/86 03/02/2015 9:12 AM EDT Pulse 96 03/02/2015 9:12 AM EDT Temperature - - Respiratory Rate - - Oxygen Saturation - - Inhaled Oxygen Concentration - - Weight 62.6 kg (138 lb) 03/02/2015 9:12 AM EDT Height 162.6 cm (5' 4) 03/02/2015 9:12 AM EDT Body Mass Index 23.69 03/02/2015 9:12 AM EDT documented in this encounter Patient Instructions * Patient Instructions* Tremaine Bustillos - 03/02/2015 11:11 AM EDT Patient has been seen and examined. Has a controlled blood pressure on her current regimen of lisinopril 10 mg daily and amlodipine 10 mg daily. Main concern now is to control pedal swelling which wethink is a complication of amlodipine by restricting daily dietary sodium to 2 g, taking amlodipinein the night together with lisinopril and leg elevation. If this not successful will consider decreasing amlodipine to 5 mg and up titrating lisinopril. No renal ultrasound or duplex now. Should continue to check bp daily. documented in this encounter Progress Notes * Marline Maradiaga MD - 03/06/2015 10:04 AM EDT The relevant details regarding Jerri Velasco were reviewed with Dr. Bustillos. The assessment and plan were formulated in discussion with me and I agree with them as documented, with the following additions. I have seen and examined the patient, providing the robison components as outlined below. I agree with Dr. Bustillos's exam findings. BP adequately controlled on current regimen based on home readings. Plans as outlined. Urinalysis in our office: pH 6, spec grav 1.005, neg leukocytes, neg nitrite, neg protein, neg glucose, neg ketones, neg blood. Microscopic: Scant, benign sediment. * Tremaine Bustillos - 03/05/2015 7:23 PM EDT Hypertension/Nephrology Consultation Jerri Velasco [id number] [id number] ID: [id number] y.o. old female seen at the request of Dr. Gerard for evaluation of hypertension Past Medical History: Past Medical History Diagnosis Date ??? Hypertension 06/02/2011 ??? Renal cell cancer 06/02/2011 ??? COPD (chronic obstructive pulmonary disease) 06/02/2011 ??? Rash ??? 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 Hypertension 401.9 ??? Renal cell cancer 189.0 ??? COPD (chronic obstructive pulmonary disease) 496 ??? Stucco keratosis 701.1 ??? Seborrheic keratosis 702.19 ??? Dermal nevus of other site 216.8 ??? 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 She has been hypertensive for about 20 yrs and was diagnosed with renal cell carcinoma and underwent resection of one kidney. Currently on lisinopril 10 mg daily and amlodipine 10 mg daily. Denies chest pains, palpitation or dyspnea. Reports pedal swelling which began with the start of amlodipine. Has a home bp log that shows blood pressures consistently below 140/90. Denies urinary symptoms. Medications: amLODIPine (NORVASC) 10 mg Tablet; lisinopril (PRINIVIL;ZESTRIL) 10 mg Tablet; albuterol (PROVENTILHFA;VENTOLIN HFA) 90 mcg/actuation inhaler; Calcium 500 mg Tab; atorvastatin (LIPITOR) 10 mg tablet; Cholecalciferol, Vitamin D3, (VITAMIN D) 1,000 unit Cap; tiotropium (SPIRIVA) 18 mcg inhalation capsule; SUMAtriptan (IMITREX) 25 mg tablet; DOCUSATE SODIUM (COLACE ORAL); Cod Liver Oil Cap Allergies / ADRs: Allergies Allergen Reactions ??? Codeine Phosphate Family History: Family History Problem Relation Age of Onset ??? Rheumatoid Arthritis Maternal Grandmother ??? Myocardial Infarction Paternal Grandmother ??? Hypertension Mother ??? Migraines Daughter ??? Stroke Mother mini ??? Thyroid Disease Daughter Social History: History Substance Use Topics ??? Smoking status: Never Smoker ??? Smokeless tobacco: Never Used ??? Alcohol Use: 4.2 oz/week 7 Glasses of wine per week ROS: -no fever, chills, night sweats -no headache, blurring of vision, diplopia -no dysphagia, hearing problems -no chest pain, palpitation, no MCKENNA, orthopnea -no cough or SOB -no abdominal pain, nausea, vomiting or diarrhea -no rash -no neuropathy -no LE swelling -no change in mood -no heat or cold intolerance PHYSICAL EXAM: Filed Vitals: 03/02/15 0912 BP: 166/86 Pulse: 96 Gen - AAO x 3 in NAD Skin - No rash HEENT - Moist mucous membranes Chest: Lungs clear to auscultation, no wheezes/ rhonchi/ crackles. Heart - S1/S2 normal, no murmur, gallop, or rub. JVP not elevated. Abd - Soft. + BS. No bruit. Non tender. No organomegaly. Ext - Warm. No cyanosis. 1+ dependent edema. Labs: Lab Results Component Value Date WBC 8.0 07/01/2013 RBC 4.70 07/01/2013 HGB 13.9 07/01/2013 HCT 42.3 07/01/2013 MCV 90.0 07/01/2013 MCH 29.6 07/01/2013 MCHC 32.9 07/01/2013 PLATELET 234 07/01/2013 RDWCV 13.3 07/01/2013 Chemistry Component Value Date/Time NA 134* 07/01/2013926 K 4.0 07/01/2013926 CL 97* 07/01/2013926 CO2 29 07/01/2013926 BUN 19* 07/01/2013926 CREATININE 1.07 07/01/2013926 Component Value Date/Time CALCIUM 9.2 07/01/2013926 ALKPHOS 65 07/01/2013926 AST 29 07/01/2013926 ALT 22 07/01/2013926 BILITOT 0.4 07/01/2013926 No results found for: PHOS A/P: CKD G3 with risk including longstanding hypertension and renal cell carcinoma s/p nephrectomy. Blood pressure is controlled on current regimen. -continue to take 10 mg lisinopril and 10 mg amlodipine at night. This will help with the amlodipine side effect of pedal edema. If edema does not respond, decrease amlodipine to 5mg daily and up titrate lisinopril. -will consider duplex ultrasound with worsening bp -CKD G3. Stable with baseline SCr 1.0. Had recent labs in scan doc. Will check phos and pth and urine pcr on next visit. -avoid nephrotoxins/nsaids -follow up in 3 months. Case discussed with Dr. Maradiaga. Thank you for allowing me to participate in the care of this interesting patient. Please CC to: MD Rex MCDONALD [address] [place] [address] documented in this encounter Miscellaneous Notes * Addendum Note - Marline Maradiaga MD - 03/06/2015 10:05 AM EDTAddended by: MARLINE MARADIAGA on: 03/06/2015 10:05 AM Modules accepted: Level of Service documented in this encounter Plan of Treatment Upcoming Encounters Date Type Department Care Team (Late st Contact Info) Description 05/18/2024 4:30 PM EDT Office [place] [address] Carmelina Donaldson MD [facility] [place] [address] 05/31/2024 1:00 PM EDT Appointment [place] [address] documented as of this encounter Visit Diagnoses Diagnosis Essential hypertension Unspecified essential hypertension documented in this encounter Care Teams Raised Printer Relationship Specialty Start Date End Date Uyen Gerard MD [address] [place] [address] PCP - General 07/01/13 documented as of this encounter
--- OUTSIDE RECORDS SUMMARY | 2024-04-26 02:20 | XMS_ITS | Encounter Summary ---
Author Organization [facility] Address [facility] [place] [address] Care Team Providers Care Geology Scientist Name Role Phone Uyen Gerard MD Primary Care Provider [phone] Reason for Visit * Reason Comments Follow-up Skin Check * Consultation (Routine) - Specialty Diagnoses / Procedures Referred By Conttaj t Referred To Contact Dermatology Diagnoses Nonscarring hair loss, unspecified Hair loss Procedures Consult Uyen Gerard MD [facility] [address] [address] Daniel Gupta MD [address] [facility] [address] Referral ID Status Reason Start Date Expiration Date V isits Requested Visits Authorized [id number] 02/07/2019 02/07/2020 1 1 Encounter Details Date Type Department Care Team (Late st Contact Info) Description 04/29/2019 2:15 PM EDT Office Visit Dermatology at [place] [address] [place] [address] Daniel Gupta MD [address] [facility] DERMATOLOGY [place], [place] [id number] History of telogen effluvium; AK (actinic keratosis); Seborrheic keratosis Social History Tobacco Use Types Packs/Day Years [...] as of this encounter Progress Notes * Danile Gupta MD - 04/29/2019 2:15 PM EDT Problem: 1. New skin lesions of concern 2. Recent history of telogen effluvium Jerri follows up and is now 84. Her underwent aortic valve surgery and there was a lot of stress in her family about 4 months ago [...] who has an actinic keratosis of the uppercentral forehead at the hairline. She has a [...] 4:30 PM EDT Office [place] [address] Carmelina Donaldson MD [facility] [place] [address] 05/31/2024 1:00 PM EDT [place] [address] documented as of this encounter Visit Diagnoses Diagnosis History of telogen effluvium Personal history of other specified diseases AK (actinic keratosis) Actinic keratosis Seborrheic keratosis Other seborrheic keratosis documented in this encounter Care Teams Geology Scientist Relationship Specialty Start Date End Date Uyen Gerard MD [facility] [address] [facility] [address] [place] [address] PCP - General 07/01/13 documented as of this encounter
--- OUTSIDE RECORDS SUMMARY | 2024-04-26 02:20 | XMS_ITS | Encounter Summary ---
Author Organization [facility] [place] [address] Care Team Providers Care Investigations Manager Name Role Phone Uyen Gerard MD Primary Care Provider [phone] Reason for Visit * Reason Onset Date Comments Medication Refill 03/01/2019 Encounter Details Date Type Department Care Team (Late st Contact Info) Description 03/01/2019 Refill [place]ph[place] [address] Nicolás Gallagher MD [facility] [address] Essential hypertension Social History Tobacco Use Types [...] 4:30 PM EDT Office [place] [phone] Carmelina Donaldson MD [facility] [place] [address] 05/31/2024 1:00 PM EDT Appointment [place] [address] documented as of this encounter Visit Diagnoses Diagnosis Essential hypertension Unspecified essential hypertension documented in this encounter Care Teams Investigations Manager Relationship Specialty Start Date End Date Uyen Gerard MD [address] [place] [address] PCP - General 07/01/13 documented as of this encounter
--- OUTSIDE RECORDS SUMMARY | 2024-04-26 02:20 | XMS_ITS | Encounter Summary ---
Author Organization [facility] [place] [address] Care Team Providers Care Hand Plate Stacker Name Role Phone Uyen Gerard MD Primary Care Provider Reason for Visit * Consultation (Routine) - Specialty Diagnoses / Procedures Referred By Contac t Referred To Contact Nephrology Diagnoses HTN RENAL CELL CARCINOMA Uyen Gerard MD [facility] [address] [place] [address] [facility] Nephrology [address] [place] [id number] Referral ID Status Reason Start Date Expiration Date V isits Requested Visits Authorized [id number] Consult, Test & Treat [facility] 01/28/2019 01/28/2020 6 6 Encounter Details Date Type Department Care Team (Latest Contact Info) Description 02/24/2019 1:30 PM EDT Office Visit Nephrology [place] [address] Nicolás Gallagher MD [facility] [place] [address] Essential hypertension Social History Tobacco Use Types [...] documented in this encounter Progress Notes * Nicolás Gallagher MD - 02/24/2019 1:30 PM EDT 84 y/o woman seen at the request of for uncontrolled HTN and CKD The patient was last seen in this clinic in January 2015 for CKD s/p right nephrectomy for RCC, returnsaccompanied by her and daughter The patient was hosiptalized in September of this year in [place] for uncontrolled HTN and atrial fibrillation, she remembers that her BP was as high as 180/100 The patients medications were increased, however, her BP has remained elevated and she was sent back to this clinic, The patient has been feeling weak and tired since her hospital stay in [place], she was recently seen in follow up by a controlled area checker in [facility] recommended to decrease the Metroprolol The patient [...] per day, no licorice, spends winter in [place], daughter is RN, workswith [employer] R/S: Once in a while headaches, no vision changes, no dizziness, no light headedness, no falls, no fever, no chills, no night sweats, no dyspnea, no cough, no chest pain, no palpitations, no heartburn, some constipation at times, no diarrhea, no dysuria, no hematuria, no edema, no focal weakness, the remaining review of systems was negATIVE Medications: Current Outpatient Medications: ??? flecainide (TAMBOCOR) 50 mg Tablet, Take 50 mg by mouth 2 times daily., Disp: , Rfl: ??? metoprolol (LOPRESSOR) 100 mg Tablet, Take 100 mg by mouth daily. Patient takes in the morning,Disp: , Rfl: ??? metoprolol tartrate (LOPRESSOR) 50 mg Tablet, Take 50 mg by mouth nightly., Disp: , Rfl: ??? levalbuterol (XOPENEX HFA) 45 mcg/actuation HFA Aerosol Inhaler, Inhale 1-2 puffs into the lungs every 4 hours as needed., Disp: , Rfl: [...] Cap, Take 2,000 Units by mouth daily., Disp: , Rfl: ??? SUMAtriptan (IMITREX) 25 mg tablet, [...] with reported home BP readings ranging from normalto elevated No microalbuminuria, no apparent retinopathy and no known LVH 24hr BP monitoring was obtained and confirms suboptimal BP control with peal readings in same rangeas during office visits and no hypotensive episodes reported renin and aldosterone levels were low, in fact renin was inadequately low as it should have been elevated because of Losartan, however the aldosterone level was lower than to be expected with primaryhyperaldosteronism Because of suboptimal P control on two vasodilators and a beta aftab the addition of a diuretic is indicated The patient has mild hyponatremia which could be made worse by a thiazide, for this reason recommend to use spironolactone as a diuretic least likely to cause hyponatremia Discussed over the phone as result were back and a decision was made to start on spironolactone 25mg in the morning Recommended a blood test with a basic metabolic profile in 1-2 weeks, order was placed Also recommended to take Losartan at night instead of in the morning to promote reestablishment of the normal nighttime BP dip Non pharmacologic methods for BP control were discussed including dietary nitrates introduced patient to www. Nhlbi.nih.gov website for DASH diet RTC in 4 months * Whitney Luna CMA - 02/24/2019 1:30 PM EDT Per request Dr Gallagher, 24 hour Blood Pressure monitor put on patient. Patient given instruction about monitor, and will call if has questions/problems. Patient given box with paid UPS label to return monitor via UPS for download of report from monitor. Patient verbalized understanding, and was inagreement with this plan. documented in this encounter Plan of Treatment Upcoming Encounters Date Type Department Care Team (Late st Contact Info) Description 05/18/2024 4:30 PM EDT Office [place] [address] Carmelina Donaldson MD [facility] [place] [address] 05/31/2024 1:00 PM EDT Appointment [place] [address] documented as of this encounter Procedures Procedure Name Priority Date/Time Associated Diagnosis Comments PTH Routine 02/24/2019 3:10 PM EDT Essential hypertension HEMOGRAM Routine 02/24/2019 3:10 PM EDT Essential hypertension DIFFERENTIAL, AUTOMATED Routine 02/24/2019 3:10 PM EDT Essential hypertension ALDOSTERONE Routine 02/24/2019 3:10 PM EDT Essential hypertension RENIN ACTIVITY Routine 02/24/2019 3:10 PM EDT Essential hypertension CBC (WITH DIFF) Routine 02/24/2019 3:10 PM EDT Essential hypertension URIC ACID Routine 02/24/2019 3:10 PM EDT Essential hypertension MAGNESIUM Routine 02/24/2019 3:10 PM EDT Essential hypertension ALBUMIN LEVEL Routine 02/24/2019 3:10 PM EDT Essential hypertension BASIC METABOLIC PANEL Routine 02/24/2019 3:10 PM EDT Essential hypertension U ALBUMIN/CRE RATIO Routine 02/24/2019 2 :00 PM EDT Essential hypertension documented in this encounter Results * (ABNORMAL) Basic Metabolic Panel (non-fasting) (08/15/2019 12:00 PM EST) Glucose 68 65 - 199 mg/dL [facility] Comment:Diabetes: >=200 mg/d L plus symptoms Blood Urea Nitrogen 25(H) 8 - 18 mg/dL [facility] Creatinine 1.09 0.70 - 1.20 mg/dL [facility] Sodium 130(L) 135 - 145 mmol/L [facility] Potassium 4.8 3.5 - 5.0 mmol/L [facility] Comment: Please note: ??Patients with WBC >100,000 may have falsely elevated Potassium levels. ??For accurate Potassium quantification in these patients send serum separator tube (gold top) for subsequent determinations. ??Contact the Clinical Chemistry Laboratory if there are any questions. Chloride 91(L) 98 - 107 mmol/L [facility] Carbon Dioxide 30 22 - 31 mmol/L [facility] Anion Gap 9 5 - 15 mmol/L [facility] Calcium 10.0 8.5 - 10.5 mg/dL [facility] Est Glomerular Filtration Rate 47(L) >=60 mL/min/1. 73 m?? [facility] Comment: The eGFR was calculated using the CKD-EPI equation. As with all creatinine based estimates of kidney function, eGFR values calculated with the CKD-EPI equation are not accurate in patients with acute kidney failure, extremes of body mass or the acutely ill. http://[employer]/[facility] eGFR 55(L) >=60 mL/min/1. 73 m?? [facility] Comment: The eGFR was calculated using the CKD-EPI equation. As with all creatinine based estimates of kidney function, eGFR values calculated with the CKD-EPI equation are not accurate in patients with acute kidney failure, extremes of body mass or the acutely ill. [email or web address] Blood specimen (specimen) 08/15/2019 12:00 PM EST 08/15/2019 12:09 PM EST Narrative Resulting Agency Comment Spec In Lab Nicolás Gallagher MD CHEMISTRY ORDERABLES [facility] [place] [address] * (ABNORMAL) Basic Metabolic Panel (non-fasting) (03/17/2019 12:47 PM EDT) Glucose 79 65 - 199 mg/dL [facility] Comment:Diabetes: >=200 mg/d L plus symptoms Blood Urea Nitrogen 21(H) 8 - 18 mg/dL [facility] Creatinine 1.01 0.70 - 1.20 mg/dL [facility] Sodium 136 135 - 145 mmol/L [facility] Potassium 4.4 3.5 - 5.0 mmol/L [facility] Comment: Please note: ??Patients with WBC >100,000 may have falsely elevated Potassium levels. ??For accurate Potassium quantification in these patients send serum separator tube (gold top) for subsequent determinations. ??Contact the Clinical Chemistry Laboratory if there are any questions. Chloride 99 98 - 107 mmol/L [facility] Carbon Dioxide 29 22 - 31 mmol/L [facility] Anion Gap 8 5 - 15 mmol/L [facility] Calcium 9.2 8.5 - 10.5 mg/dL [facility] Est Glomerular Filtration Rate 52(L) >=60 mL/min/1. 73 m?? [facility] Comment: The eGFR was calculated using the CKD-EPI equation. As with all creatinine based estimates of kidney function, eGFR values calculated with the CKD-EPI equation are not accurate in patients with acute kidney failure, extremes of body mass or the acutely ill. http://[employer]/[facility] eGFR 60 >=60 mL/min/1. 73 m?? [facility] Comment: The eGFR was calculated using the CKD-EPI equation. As with all creatinine based estimates of kidney function, eGFR values calculated with the CKD-EPI equation are not accurate in patients with acute kidney failure, extremes of body mass or the acutely ill. [email or web address] Blood specimen (specimen) 03/17/2019 12:47 PM EDT 03/17/2019 12:52 PM EDT Narrative Resulting Agency Comment Spec In Lab Nicolás Gallagher MD CHEMISTRY ORDERABLES [facility] [place] [address] * (ABNORMAL) Differential, Automated (02/24/2019 3:10 PM EDT) [facility] Neutrophil % 68.0 % [facility] Neutrophil Absolute 6.16(H) 1.70 - 6.10 x10(3)/[facility] Lymph % 18.3 % [facility] Lymphocytes Abs 1.7 0.9 - 3.2 x10(3)/[facility] Monocyte % 10.4 % [facility] Monocyte Abs 0.9 0.3 - 0.9 x10(3)/[facility] Eos % 2.0 % [facility] Eosinophils Abs 0.2 0.0 - 0.4 x10(3)/[facility] Basophil % 0.9 % [facility] Baso Absolute 0.1 0.0 - 0.1 x10(3)/[facility] Immature Gran % 0.40 % [facility] Comment: Immature granulocytes(IG's)percentage and absolute count will include metamyelocytes, myelocytes, and promyelocytes. Blood smears from CBCs yielding IG's will be scanned manually for concordance. If this scan disagrees with the automated IG or if promyelocytes are noted, a manual differential will be performed. Immature Gran Absolute 0.04 0.00 - 0.04 x10(3)/[facility] Blood specimen (specimen) 02/24/2019 3:10 PM EDT 02/24/2019 3:17 PM EDT Narrative Resulting Agency Comment Spec In Lab Nicolás Gallagher MD HEMATOLOGY ORDERABLE S [facility] [place] [place] [address] * Hemogram (02/24/2019 3:10 PM EDT) Pathologist [facility] White Blood Cell 9.1 4.0 - 9.5 x10(3)/[facility] Red Blood Cell 4.78 4.00 - 5.21 x10(6)/[facility] Hemoglobin 14.0 11.7 - 15.5 gm/dL [facility] Hematocrit 42.7 35.7 - 45.8 % [facility] Mean Cell Volume 89.3 82.6 - 94.4 fL [facility] Mean Cell Hemoglobin 29.3 27.1 - 32.0 pg [facility] Mean Cell Hemoglobin Concentration 32.8 31.7 - 35.0 gm/dL [facility] Platelet 241 145 - 357 x10(3)/[facility] RDW Standard Deviation 45.1 37.0 - 46.0 fL [facility] RDW coefficient of variation 13.7 11.5 - 14.1 % [facility] Mean Platelet Volume 9.4 7.6 - 12.9 fL [facility] NRBC% auto 0.0 % [facility] NRBC Absolute 0.000 0.000 - 0.000 x10(3)/[facility] Blood specimen (specimen) 02/24/2019 3:10 PM EDT 02/24/2019 3:17 PM EDT Narrative Resulting Agency Comment Spec In Lab Nicolás Gallagher MD HEMATOLOGY ORDERABLE S [facility] [place] [address] * Aldosterone (02/24/2019 3:10 PM EDT) Pathologist [facility] Aldosterone (JANUARY) 5.8 <=21 ng/dL [facility] Comment: ADDITIONAL INFORMATION Reference range for patients 11 years and older is based on upright A.M. collection from subjects without sodium restrictions. This test was developed and its performance characteristics determined by [facility] in a manner consistent with CLIA requirements. This test has not been cleared or approved by the U.S. Food and Drug Administration. Test Performed by: [facility] - [address] [address] Blood specimen (specimen) 02/24/2019 3:10 PM EDT 02/24/2019 3:46 PM EDT Narrative Resulting Agency Comment Spec In Lab Nicolás Gallagher MD LAB SEND OUT ORDERAB LES Performing Organization Address [facility] de Phone Number [facility] [place] [address] * Renin Activity (02/24/2019 3:10 PM EDT) Renin Activity (JANUARY) <0.6 ng/ml/hr [facility] Comment: REFERENCE VALUE (Peripheral vein specimen) Na-deplete, upright: ??Mean: 5.9 ??Range: 2.9-10.8 Na-replete, upright: ??Mean: 1.0 ??Range: < or =0.6-3.0 ADDITIONAL INFORMATION Testing performed by Liquid Chromatography-Tandem Mass Spectrometry (LC-MS/MS). This test was developed and its performance characteristics determined by [facility] in a manner consistent with CLIA requirements. This test has not been cleared or approved by the U.S. Food and Drug Administration. Test Performed by: [facility] [employer] - [address] [address] Blood specimen (specimen) 02/24/2019 3:10 PM EDT 02/24/2019 3:55 PM EDT Narrative Resulting Agency Comment Spec In Lab Nicolás Gallagher MD LAB SEND OUT ORDERAB LES Performing Organization Address [facility]/[employer] de Phone Number [facility] [place] [address] * Magnesium (02/24/2019 3:10 PM EDT) Magnesium 0.85 0.69 - 1.07 mmol/L [facility] Blood specimen (specimen) 02/24/2019 3:10 PM EDT 02/24/2019 3:17 PM EDT Narrative Resulting Agency Comment Spec In Lab Nicolás Gallagher MD CHEMISTRY ORDERABLES Performing Organization Address City/[facility]/ZIP Co de Phone Number [facility] [place] [address] * PTH (02/24/2019 3:10 PM EDT) Parathyroid Hormone 37 15 - 65 pg/mL [facility] Blood specimen (specimen) 02/24/2019 3:10 PM EDT 02/24/2019 3:17 PM EDT Narrative Resulting Agency Comment Spec In Lab Nicolás Gallagher MD CHEMISTRY ORDERABLES Performing Organization Address City/[facility]/ZIP Co de Phone Number [facility] [place] [address] * Albumin Level (02/24/2019 3:10 PM EDT) Albumin 3.9 3.2 - 5.2 gm/dL [facility] Blood specimen (specimen) 02/24/2019 3:10 PM EDT 02/24/2019 3:17 PM EDT Narrative Resulting Agency Comment Spec In Lab Nicolás Gallagher MD CHEMISTRY ORDERABLES Performing Organization Address City/[facility]/ZIP Co de Phone Number [facility] [place] [address] * Uric acid (02/24/2019 3:10 PM EDT) Uric Acid 4.5 2.5 - 6.5 mg/dL [facility] Blood specimen (specimen) 02/24/2019 3:10 PM EDT 02/24/2019 3:17 PM EDT Narrative Resulting Agency Comment Spec In Lab Nicolás Gallagher MD CHEMISTRY ORDERABLES [facility] [place] [address] * (ABNORMAL) Basic Metabolic Panel (non-fasting) (02/24/2019 3:10 PM EDT) Glucose 92 65 - 199 mg/dL [facility] Comment:Diabetes: >=200 mg/d L plus symptoms Blood Urea Nitrogen 19(H) 8 - 18 mg/dL [facility] Creatinine 0.97 0.70 - 1.20 mg/dL [facility] Sodium 132(L) 135 - 145 mmol/L [facility] Potassium 4.4 3.5 - 5.0 mmol/L [facility] Comment: Please note: ??Patients with WBC >100,000 may have falsely elevated Potassium levels. ??For accurate Potassium quantification in these patients send serum separator tube (gold top) for subsequent determinations. ??Contact the Clinical Chemistry Laboratory if there are any questions. Chloride 94(L) 98 - 107 mmol/L [facility] Carbon Dioxide 26 22 - 31 mmol/L [facility] Anion Gap 12 5 - 15 mmol/L [facility] Calcium 9.4 8.5 - 10.5 mg/dL [facility] Est Glomerular Filtration Rate 54(L) >=60 mL/min/1. 73 m?? [facility] Comment: The eGFR was calculated using the CKD-EPI equation. As with all creatinine based estimates of kidney function, eGFR values calculated with the CKD-EPI equation are not accurate in patients with acute kidney failure, extremes of body mass or the acutely ill. http://[email or web address] eGFR 63 >=60 mL/min/1. 73 m?? [facility] Comment: The eGFR was calculated using the CKD-EPI equation. As with all creatinine based estimates of kidney function, eGFR values calculated with the CKD-EPI equation are not accurate in patients with acute kidney failure, extremes of body mass or the acutely ill. [email or web address] Blood specimen (specimen) 02/24/2019 3:10 PM EDT 02/24/2019 3:17 PM EDT Narrative Resulting Agency Comment Spec In Lab Nicolás Gallagher MD CHEMISTRY ORDERABLES Performing Organization Address [facility]/[employer] de Phone Number [facility] [place] [address] * U Albumin/Cre Ratio (02/24/2019 2:00 PM EDT) Albumin / Creatinin Ratio, Urine Not Calculated 0 - 29 mcg/mg Cr [facility] [...] Supplements (2012) 2, 357? 362 Albumin, Urine <3.0 mg/L [facility] Creatinine, Urine 26 mg/dL [facility] Urine specimen (specimen) 02/24/2019 2:00 PM EDT 02/24/2019 2:09 PM EDT Narrative Resulting Agency Comment Spec In Lab Nicolás Gallagher MD URINE ORDERABLES Performing Organization Address [facility]/[employer] de Phone Number [facility] [place] [address] documented in this encounter Visit Diagnoses Diagnosis Essential hypertension Unspecified essential hypertension documented in this encounter Care Teams Hand Plate Stacker Relationship Specialty Start Date End Date Uyen Gerard MD [address] [place] [address] PCP - General 07/01/13 documented as of this encounter
--- OUTSIDE RECORDS SUMMARY | 2024-04-26 02:20 | XMS_ITS | Encounter Summary ---
Author Organization [facility] [place] [address] Care Team Providers Care Frame Builder Name Role Phone Uyen Gerard MD Primary Care Provider [phone] Encounter Details Date Type Department Care Team (Latest Contact Info) Description 08/15/2019 12:25 PM EST Laboratory Appointment Lab [address] [place] [phone] Essential hypertension Social History Tobacco Use Types [...] 4:30 PM EDT [place] [phone] Carmelina Donaldson MD [facility] [place] [address] 05/31/2024 1:00 PM EDT [place] [phone] documented as of this encounter Procedures Procedure Name Priority Date/Time Associated Diagnosis Comments HEMOGRAM STAT 08/15/2019 12:00 PM EST Essential hypertension DIFFERENTIAL, AUTOMATED STAT 08/15/2019 12:00 PM EST Essential hypertension HC VENIPUNCTURE STAT 08/15/2019 12:00 PM EST Essential hypertension BASIC METABOLIC PANEL STAT 08/15/2019 12:00 PM EST Essential hypertension documented in this encounter Results * (ABNORMAL) Differential, Automated (08/15/2019 12:00 PM EST) Neutrophil % 66.6 % [facility] Neutrophil Absolute 6.18(H) 1.70 - 6.10 x10(3)/mc L [facility] Lymph % 17.9 % [facility] Lymphocytes Abs 1.7 0.9 - 3.2 x10(3)/mc L [facility] Monocyte % 12.4 % [facility] Monocyte Abs 1.2(H) 0.3 - 0.9 x10(3)/mc L [facility] Eos % 1.5 % [facility] Eosinophils Abs 0.1 0.0 - 0.4 x10(3)/mc L [facility] Basophil % 1.0 % [facility] Baso Absolute 0.1 0.0 - 0.1 x10(3)/mc L [facility] Immature Gran % 0.60 % [facility] Comment: Immature granulocytes(IG's)percentage and absolute count will include metamyelocytes, myelocytes, and promyelocytes. Blood smears from CBCs yielding IG's will be scanned manually for concordance. If this scan disagrees with the automated IG or if promyelocytes are noted, a manual differential will be performed. Immature Gran Absolute 0.06(H) 0.00 - 0.04 x10(3)/mc L [facility] Blood specimen (specimen) 08/15/2019 12:00 PM EST 08/15/2019 12:09 PM EST Narrative Resulting Agency Comment Spec In Lab Nicolás Gallagher MD HEMATOLOGY ORDERABLE S [facility] [place] [address] * Hemogram (08/15/2019 12:00 PM EST) White Blood Cell 9.3 4.0 - 9.5 x10(3)/[facility] Red Blood Cell 4.64 4.00 - 5.21 x10(6)/[facility] Hemoglobin 13.7 11.7 - 15.5 gm/dL [facility] Hematocrit 41.2 35.7 - 45.8 % [facility] Mean Cell Volume 88.8 82.6 - 94.4 fL [facility] Mean Cell Hemoglobin 29.5 27.1 - 32.0 pg [facility] Mean Cell Hemoglobin Concentration 33.3 31.7 - 35.0 gm/dL [facility] Platelet 277 145 - 357 x10(3)/[facility] RDW Standard Deviation 42.2 37.0 - 46.0 [facility] RDW coefficient of variation 12.9 11.5 - 14.1 % [facility] Mean Platelet Volume 9.1 7.6 - 12.9 fL [facility] NRBC% auto 0.0 % [facility] NRBC Absolute 0.000 0.000 - 0.000 x10(3)/[facility] Blood specimen (specimen) 08/15/2019 12:00 PM EST 08/15/2019 12:09 PM EST Narrative Resulting Agency Comment Spec In Lab Nicolás Gallagher MD HEMATOLOGY ORDERABLE S [facility] [place] [address] * (ABNORMAL) Basic Metabolic Panel (non-fasting) (08/15/2019 12:00 PM EST) Glucose 68 65 - 199 mg/dL [facility] Comment:Diabetes: >=200 mg/d L plus symptoms Blood Urea Nitrogen 25(H) 8 - 18 mg/dL [facility] Creatinine 1.09 0.70 - 1.20 mg/dL [facility] Sodium 130(L) 135 - 145 mmol/L [facility] Potassium 4.8 3.5 - 5.0 mmol/L [facility] Comment: Please note: ??Patients with WBC >100,000 may have falsely elevated Potassium levels. ??For accurate Potassium quantification in these patients send serum separator tube (gold top) for subsequent determinations. ??Contact the Clinical Chemistry Laboratory if there are any questions. Chloride 91(L) 98 - 107 mmol/L [facility] Carbon Dioxide 30 22 - 31 mmol/L [facility] Anion Gap 9 5 - 15 mmol/L [facility] Calcium 10.0 8.5 - 10.5 mg/dL [facility] Est Glomerular Filtration Rate 47(L) >=60 mL/min/1. 73 m?? [facility] Comment: The eGFR was calculated using the CKD-EPI equation. As with all creatinine based estimates of kidney function, eGFR values calculated with the CKD-EPI equation are not accurate in patients with acute kidney failure, extremes of body mass or the acutely ill. http://[employer]/DHnkf eGFR 55(L) >=60 mL/min/1. 73 m?? [facility] Comment: The eGFR was calculated using the CKD-EPI equation. As with all creatinine based estimates of kidney function, eGFR values calculated with the CKD-EPI equation are not accurate in patients with acute kidney failure, extremes of body mass or the acutely ill. http://[employer]/DHMCnkf Blood specimen (specimen) 08/15/2019 12:00 PM EST 08/15/2019 12:09 PM EST Narrative Resulting Agency Comment Spec In Lab Nicolás Gallagher MD CHEMISTRY ORDERABLES [facility] [address] [place] [address] documented in this encounter Visit Diagnoses Diagnosis Essential hypertension Unspecified essential hypertension documented in this encounter Care Teams Frame Builder Relationship Specialty Start Date End Date Uyen Gerard MD [address] [place] [address] PCP - General 07/01/13 documented as of this encounter
--- OUTSIDE RECORDS SUMMARY | 2024-04-26 02:20 | XMS_ITS | Encounter Summary ---
Author Organization [facility] [place] [address] Care Team Providers Care Money Room Supervisor Name Role Phone Uyen Gerard MD Primary Care Provider [phone] Encounter Details Date Type Department Care Team (Late st Contact Info) Description 04/25/2015 Orders Only [place] [phone] Jannie Oviedo MD [facility] [place] [address] Social History Tobacco Use Types Packs/Day Years [...] 4:30 PM EDT [place] [phone] Carmelina Donaldson MD [facility] [place] [address] 05/31/2024 1:00 PM EDT [place] [address] documented as of this encounter Procedures Procedure Name Priority Date/Time Associated Diagnosis Comments FILM LIBRARY STORAGE ONLY CT CHEST ABDOMEN PELVIS Routine 04/25/2015 4:43 AM EDT documented in this encounter Results * Film Library- Storage only CT Chest abdomen Pelvis (04/25/2015 4:43 AM EDT) Anatomical Region Laterality Modality Chest, Abdomen, Pelvis Other 04/25/2015 4:43 AM EDT Narrative 05/04/2015 4:48 AM EDT This is a Non-reportable exam Procedure Note LISA, UNSIGNED REPORT - 05/04/2015 This is a Non-reportable exam Jannie Oviedo MD IMG FILM LIBRARY OR DERABLES documented in this encounter Visit Diagnoses Not on filedocumented in this encounter Care Teams Money Room Supervisor Relationship Specialty Start Date End Date Uyen Gerard MD [facility] [address] [place] [address] PCP - General 07/01/13 documented as of this encounter
--- OUTSIDE RECORDS SUMMARY | 2024-04-26 02:20 | XMS_ITS | Encounter Summary ---
Author Organization [facility] [place] [address] Care Team Providers Care Adzing And Boring Machine Feeder Name Role Phone Uyen Gerard MD Primary Care Provider [phone] Encounter Details Date Type Department Care Team (Latest Contact Info) Description 08/15/2019 1:30 PM EST Office Visit Neph[place] [address] Nicolás Gallagher MD [facility] [place] [address] Stage 3 chronic kidney disease Social History Tobacco Use [...] kg (139 lb 9.6 oz) 08/15/2019 1:06 P M EST Height 162.6 cm (5' 4.02) 08/15/2019 1:06 PM ES T Body Mass Index 23.95 08/15/2019 1:06 PM EST documented in this encounter Progress Notes * Nicolás Gallagher MD - 08/15/2019 1:30 PM [...] by eGFR, her urine sediment is normal priyanka spot urine tested negative for microalbuminuria which confers a favorable prognosis RTC in a year documented in this encounter Plan of Treatment Upcoming Encounters Date Type Department Care Team (Late st Contact Info) Description 05/18/2024 4:30 PM EDT Office [place] [phone] Carmelina Donaldson MD [facility] [place] [address] 05/31/2024 1:00 PM EDT Appointment [place] [phone] documented as of this encounter Visit Diagnoses Diagnosis Stage 3 chronic kidney disease documented in this encounter Care Teams Adzing And Boring Machine Feeder Relationship Specialty Start Date End Date Uyen Gerard MD [facility] [address] [place] [address] PCP - General 07/01/13 documented as of this encounter
--- OUTSIDE RECORDS SUMMARY | 2024-04-26 02:20 | XMS_ITS | Encounter Summary ---
Author Organization [facility] Address [facility] [place] [address] Care Team Providers Care Drafting Clerk Name Role Phone Uyen Gerard MD Primary Care Provider [phone] Reason for Visit * Consultation (Routine) - Closed Specialty Diagnoses / Procedures Referred By Contac t Referred To Contact Pulmonology Diagnoses Bronchiectasis, uncomplicated Chronic obstructive pulmonary disease, unspecified Uyen Gerard MD [facility] [place] [address] [address] [facility] Pulmonology [address] [place] [id number] Referral ID Status Reason Start Date Expiration Date V isits Requested Visits Authorized [id number] Closed Consult, Test & Treat Connection [facility] PCP Updated and/or Approved 11/19/2020 05/18/2021 6 6 Encounter Details Date Type Department Care Team (Late st Contact Info) Description 05/08/2021 12:00 PM EDT [place] [address] Carmelina Donaldson MD [facility] [place] [address] Interstitial lung disease; Pleural nodules Social History Tobacco Use Types Packs/Day Years [...] EDT Temperature 36.4 ??C (97.5 ??F) 05/08/2021 1 1:32 AM EDT Respiratory Rate 24 05/08/2021 11:3 2 AM EDT Oxygen Saturation 99% 05/08/2021 11: 32 AM EDT Inhaled Oxygen Concentration - - Weight 61.2 kg (134 lb 14.7 oz) 021 11:32 AM EDT Height 162.6 cm (5' 4) 05/08/2021 11:3 2 AM EDT Body Mass Index 23.16 05/08/2021 11:32 AM EDT documented in this encounter Progress Notes * Carmelina Donaldson MD - 05/08/2021 12:00 PM EDT Images from the original note were not included. [facility] Section of Pulmonary and Critical Care Medicine [...] History: Procedure Laterality Date ??? ANKLE SURGERY 2013 ice injury ??? TONSILLECTOMY ??? 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 Pt lives with her in a home. 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 There were two moderate sized pleural based nodules which are new. SPIROMETRY: PFT Results Office Visit from 03/31/2014 in Pulmonology at [facility] Office Visit from 09/16/2013 in Pulmonology at [facility] Office Visit from 03/11/2013 in Pulmonology at [facility] PFT Results Peak Flow 300 [...] I would like to see her back quickly after obtaining labs to assess for an autoimmune [...] months to assess for interval change. CARMELINA DONALDSON MD 05/08/2021 1:38 PM documented in this encounter Plan of Treatment Upcoming Encounters Date Type Department Care Team (Late st Contact Info) Description 05/18/2024 4:30 PM EDT Office [place] [phone] Carmelina Donaldsno MD [facility] [place] [address] 05/31/2024 1:00 PM EDT Appointment Pulmonology at [facility] [place] [place] [address] documented as of this encounter Procedures Procedure Name Priority Date/Time Associated Diagnosis Comments HC VENIPUNCTURE Routine 05/08/2021 1:02 PM EDT Interstitial lung disease HC PCH ANTI RO Routine 05/08/2021 1:02 PM EDT Interstitial lung disease HC IGE, TOTAL Routine 05/08/2021 1:02 PM EDT Interstitial lung disease HC CYCLIC CITRULLINE PEPTIDE Routine 05/08/2021 1:02 PM EDT Interstitial lung disease HC RHEUMATOID FACTOR Routine 05/08/2021 1:02 PM EDT Interstitial lung disease HC PCH ANATITRE (ANDPATTERN) Routine 05/08/2021 1:02 PM EDT Interstitial lung disease documented in this encounter Results * Pulmonary Function Testing (05/29/2021 1:39 PM EDT) FVC Actual Pre-BD 1.85 L COMPAS PFT FVC Pre-BD % of Predicted 80 % COMPAS PFT FVC Predicted 2.32 L [facility]AS PFT FVC Pre-BD Z-Score -1.05 COMPAS PFT FVC Lower Limits of Normal 1.60 L [facility]AS PFT FEV1 Actual Pre-BD 1.21 L [facility]AS PFT FEV1 Pre-BD % of Predicted 69 % [facility]AS PFT FEV1 Predicted 1.75 L [facility]AS PFT FEV1 Pre-BD Z-Score -1.63 COMPAS PFT FEV1 Lower Limits of Normal 1.21 L COMPAS PFT FEV1 / FVC Actual Pre-BD 65 % COMPAS PFT FEV1/FVC Pre-BD Z-Score -1.31 COMPAS PFT FEV1 / FVC LLN 61 % COMPAS PFT [id number] Actual Pre-BD 0.54 L/s COMPAS PFT [id number] Pre-BD % of Predicted 39 % COMPAS PFT [id number] Predicted 1.40 L/s COMPAS PFT [id number] Pre-BD Z-Score -1.69 COMPAS PFT DLCO Hb Actual Pre-BD 12.18 mL/min/mmHg COMPAS PFT DLCO Hb Pre-BD % of Predicted 69 % COMPAS PFT DLCO Hb Pre-BD Z-Score -2.09 COMPAS PFT DLCO Hb Predicted 17.77 mL/min/mmHg COMPAS PFT DLCO UNC ACT PRE-BD 12.18 mL/min/mmHg COMPAS PFT DLCO UNC PRE-BD % of PRED 69 % COMPAS PFT DLCO UNC PRE-BD Z-SCORE -2.09 % COMPAS PFT DLCO UNC Predicted 17.77 mL/min/mmHg COMPAS PFT DLCO/VA Actual Pre-BD 3.41 mL/min/mmHg /L COMPAS PFT DLCO/VA Pre-BD % of Predicted 83 % COMPAS PFT DLCO/VA Pre-BD Z-Score -1.12 COMPAS PFT DLCO/VA Predicted 4.12 mL/min/mmHg /L COMPAS PFT FRC Predicted 2.65 L COMPAS PFT FRC Actual Pre-BD 3.34 L COMPAS PFT FRC Pre-BD % of Predicted 126 % COMPAS PFT FRC Pre-BD Z-Score 1.38 COMPAS PFT TLC Predicted 4.73 L COMPAS PFT TLC Actual Pre-BD 4.90 L COMPAS PFT TLC Pre-BD % of Predicted 104 % COMPAS PFT TLC Pre-BD Z-Score 0.28 COMPAS PFT RV Predicted 2.24 L [facility]AS PFT RV Actual Pre-BD 3.03 L COMPAS PFT RV Pre-BD % of Predicted 135 % COMPAS PFT RV Pre-BD Z-Score 2.26 COMPAS PFT RVoTLC Predicted 48 % COMPAS PFT RVoTLC Actual Pre-BD 62 % COMPAS PFT RVoTLC Pre-BD % of Predicted 129 % COMPAS PFT RVoTLC Pre-BD Z-Score 2.40 COMPAS PFT VC Predicted 2.32 L COMPAS PFT VC Actual Pre-BD 1.87 L COMPAS PFT VC Pre-BD % of Predicted 81 % COMPAS PFT VC Pre-BD Z-Score -0.99 [facility] PFT [facility]ative [facility] - 05/29/2021 1:39 PM EDT FINDINGS: FEV1, FVC, and FEV1/VC are within normal limits. TLC is normal and RV/TLC is increased. Diffusion capacity not adjusted for hemoglobin is reduced. Resting oxyhemoglobin saturation was normal while breathing room air. Oxyhemoglobin saturation during ambulation was normal while breathing room air. IMPRESSION: Normal spirometry. Lung volumes indicate normal total lung capacity, but there is evidence of air trapping. Mild reduction in diffusing capacity (DLCO > 60% and < lower limit of normal). Isolated reduced DLCO suggests the possibility of disease of the pulmonary vasculature, early emphysema, early interstitial disease, anemia, or carboxyhemoglobinemia/heavy tobacco smoking. Normal resting and ambulatory oximetry. Procedure Note Backer, Mj Briscoe MD - 05/30/2021 FINDINGS: FEV1, FVC, and FEV1/VC are within normal limits. TLC is normaland RV/TLC is increased. Diffusion capacity not adjusted for hemoglobin is reduced.Resting oxyhemoglobin saturation was normal while breathing room air. Oxyhemoglobin saturationduring ambulation was normal while breathing room air. IMPRESSION: Normal spirometry. Lungvolumes indicate normal total lung capacity, but there is evidence of air trapping. Mild reductionin diffusing capacity (DLCO > 60% and < lower limit of normal). Isolated reduced DLCOsuggests the possibility of disease of the pulmonary vasculature, early emphysema,early interstitial disease, anemia, or carboxyhemoglobinemia/heavy tobacco smoking. Normalresting and ambulatory oximetry. Carmelina Donaldson MD PFT ORDERABLES COMPAS PFT * SS-B/La Antibody (05/08/2021 1:02 PM EDT) SS-B/La Ab <0.2 <1.0 (Negative) [facility] Comment: Test Performed by: [facility] [address] [place] [address] Horse Show Judge: Ming Knight M.D. Ph.D.; CLIA# [id number] Blood 05/08/2021 1:02 PM EDT 05/08/2021 1:39 PM EDT Narrative Resulting Agency Comment Spec In Lab Carmelina Donaldson MD LAB SEND OUT ORDERAB LES Performing Organization Address City/[facility]/ZIP Co de Phone Number [facility] [place] [address] * SS-A/Ro Antibody (05/08/2021 1:02 PM EDT) Pathologist [facility] SS-A/Ro Ab <0.2 <1.0 (Negative) [facility] Comment: Test Performed by: [facility] [place] [address] Horse Show Judge: Ming Knight M.D. Ph.D.; CLIA# [id number] Blood 05/08/2021 1:02 PM EDT 05/08/2021 1:39 PM EDT Narrative Resulting Agency Comment Spec In Lab Carmelina Donaldson MD LAB SEND OUT ORDERAB LES Performing Organization Address [facility] Co de Phone Number [facility] [place] [address] * Immunoglobulin E (IgE) (05/08/2021 1:02 PM EDT) IgE, Total 9 <=101 kU/L [facility] Comment: Pediatric age-specific reference ranges are reflected in result ranges. Adult reference ranges: <25 kU/L ??Normal 25-100 kU/L Equivocal >100 kU/L ??Elevated Blood 05/08/2021 1:02 PM EDT 05/08/2021 2:52 PM EDT Narrative Resulting Agency Comment Spec In Lab Carmelina Donaldson MD IMMUNOLOGY ORDERABLE S Performing Organization Address City/[facility]/ZIP Co de Phone Number [facility] [place] [address] * Cyclic Citrullinated Peptide (05/08/2021 1:02 PM EDT) [facility] Cyclic Citrulline Peptide <8.0 <=16.9 unit/mL [facility] Comment: Please note that due to a change in test format on 02/21/2021, the reference interval for this test has been updated and values greater than or equal to 17 U/mL are considered positive for the presence of anti-CCP antibodies. Blood 05/08/2021 1:02 PM EDT 05/08/2021 1:10 PM EDT Narrative Resulting Agency Comment Spec In Lab Carmelina Donaldson MD CHEMISTRY ORDERABLES Performing Organization Address [facility] Co de Phone Number [facility] [place] [address] * Rheumatoid factor, quant (05/08/2021 1:02 PM EDT) [facility] Rheumatoid Factor 14 <=14 IU/mL [facility] Blood 05/08/2021 1:02 PM EDT 05/08/2021 1:10 PM EDT Narrative Resulting Agency Comment Spec In Lab Carmelina Donaldson MD CHEMISTRY ORDERABLES Performing Organization Address [facility] Co de Phone Number [facility] [place] [address] * (ABNORMAL) CADEN (05/08/2021 1:02 PM EDT) [facility] CADEN Ab Screen Test ?Result ? Flag ??Unit ??RefValue Antinuclear Ab, HEp-2 Substrate, ?Positive 1:160 ??@ ?<1:80 (Negative) ??S ? ADDITIONAL INFORMATION --------- ?Method: Immunofluorescence using HEp-2 cellular substrate. ??CADEN Titer: ?1:160 ??CADEN Pattern: ?Speckled ?Test Performed by: ?[facility] ?[address] [place] [address] ?Horse Show Judge: Ming Knight M.D. Ph.D.; CLIA# [id number] ([id number]) [facility] Blood 05/08/2021 1:02 PM EDT 05/08/2021 1:39 PM EDT Narrative Resulting Agency Comment Spec In Lab Carmelina Donaldson MD LAB SEND OUT ORDERAB LES [facility] [place] [address] documented in this encounter Visit Diagnoses Diagnosis Interstitial lung disease Postinflammatory pulmonary fibrosis Pleural nodules Swelling, mass, or lump in chest Interstitial lung disease Postinflammatory pulmonary fibrosis documented in this encounter Care Teams Drafting Clerk Relationship Specialty Start Date End Date Uyen Gerard MD [address] [place] [address] PCP - General 07/01/13 documented as of this encounter
--- OUTSIDE RECORDS SUMMARY | 2024-04-26 02:20 | XMS_ITS | Encounter Summary ---
Author Organization [facility] Address [facility] [place] [address] Care Team Providers Care Physical Therapy Instructor Name Role Phone Michael Perez MD Primary Care Provider Encounter Details Date Type Department Care Team (Latest Contact Info) Description 03/11/2013 4:07 PM EDT - 03/11/2013 11:59 PM EDT [place] [address] Ming Carter MD [facility] [address] [address] Peripheral edema; COPD (chronic obstructive pulmonary disease) Discharge Disposition: Home Social History Tobacco Use [...] End Date Calcium 500 mg Tab Take 2 gummies by mouth daily. atorvastatin (LIPITOR) 10 mg tablet Take 10 mg by mouth daily. cholecalciferol, Vitamin D3, 25 mcg (1,000 unit) Capsule Take 2,000 Units by mouth daily. SUMAtriptan (Imitrex) 25 mg Tablet Take 50 mg by mouth as needed. DOCUSATE SODIUM (COLACE ORAL) 01/02/2009 albuterol (PROVENTIL HFA;VENTOLIN HFA) 90 mcg/actuation inhaler Inhale 2 puffs into the lungs every 4 hours as needed for Wheezing for 30 days. Use with spacer 1 Inhaler 11 03/11/2013 04/10/2013 tiotropium (SPIRIVA) 18 mcg inhalation capsuleIndications:Med ication refill Inhale 1 capsule into the lungs daily. 90 capsule 3 04/05/2012 02/24/2019 metoprolol (LOPRESSOR) 100 mg tablet Take 50 mg by mouth 2 times daily. 03/02/2015 meclizine (ANTIVERT) 25 mg tablet Take 25 mg by mouth 3 times daily as needed. 03/02/2015 mmbxvrlfqf-uouqkti-iri feine (FIORINAL) 50-325-40 mg per tablet Take 1 tablet by mouth every 4 hours as needed. 03/02/2015 Cod Liver Oil Cap 01/02/2009 05/08/2021 documented as of this encounter Plan of Treatment Upcoming Encounters Date Type Department Care Team (Late st Contact Info) Description 05/18/2024 4:30 PM EDT Office [place] [address] Carmelina Donaldson MD [facility] [address] [place] [address] 05/31/2024 1:00 PM EDT Appointment [place] [address] documented as of this encounter Procedures Procedure Name Priority Date/Time Associated Diagnosis Comments BASIC METABOLIC PANEL Routine 03/11/2013 11:15 AM EDT Peripheral edema COPD (chronic obstructive pulmonary disease) documented in this encounter Results * (ABNORMAL) Basic Metabolic Panel (non-fasting) (03/11/2013 11:15 AM EDT) [facility] Glucose 83 60 - 199 mg/dL [facility] Comment:Diabetes: >=200 mg/d L plus symptoms Blood Urea Nitrogen 19(H) 8 - 18 mg/dL [facility] Creatinine 1.07 0.70 - 1.20 mg/dL CERNER MILLENNIUM Comment: Please note that the pediatric reference intervals supplied above were not validated at [facility]. Results from pediatric patients should be interpreted in conjunction to the patient's age, height and muscle mass. Sodium 135 135 - 145 mmol/L CERNER MILLENNIUM Potassium 4.6 3.5 - 5.0 mmol/L CERNER MILLENNIUM Comment: Please note: ??Patients with WBC >100,000 may have falsely elevated Potassium levels. ??For accurate Potassium quantification in these patients send serum separator tube (gold top) for subsequent determinations. ??Contact the Clinical Chemistry Laboratory if there are any questions. Chloride 98 98 - 107 mmol/L CERNER MILLENNIUM Carbon Dioxide 27 22 - 31 mmol/L CERNER MILLENNIUM Anion Gap 10 5 - 15 mmol/L CERNER MILLENNIUM Calcium 9.1 8.5 - 10.5 mg/dL CERNER MILLENNIUM Est Glomerular Filtration Rate 50(L) >=60 CERNER MILLENNIUM Comment: This estimated GFR (eGFR) value was calculated using the MDRD equation which has been validated on patients between the ages of 18 and 70. The MDRD should not be used to assess kidney function in patients < 18 years of age or in patients with extremes of body mass, or in patients with acute kidney failure. This value should be multiplied by 1.2 for patients. For further information please copy and paste the following links into your internet browser. http://www.nkdep.nih.gov/lab-evaluation.shtml http://www.kidney.org/professionals/ Blood specimen (specimen) 03/11/2013 11:15 AM EDT 03/11/2013 6:56 PM EDT Narrative Resulting Agency Comment Spec In Lab Ming Carter MD CHEMISTRY ORDERABLE S LANIE HARRELL documented in this encounter Visit Diagnoses Diagnosis Peripheral edema Edema COPD (chronic obstructive pulmonary disease) Chronic airway obstruction, not elsewhere classified documented in this encounter Care Teams Physical Therapy Instructor Relationship Specialty Start Date End Date Michael Perez MD PCP - General 03/11/13 03/13/13 documented as of this encounter
--- OUTSIDE RECORDS SUMMARY | 2024-04-26 02:20 | XMS_ITS | Encounter Summary ---
Author Organization [facility] Address [facility] [place] [address] Care Team Providers Care Hawk Missile Air Defense Artillery Name Role Phone Uyen Gerard MD Primary Care Provider [phone] Encounter Details Date Type Department Care Team (Late st Contact Info) Description 11/07/2014 Telephone Pulmonology at [address] [phone] Ming Carter MD [facility] [address] [address] Social History Tobacco Use Types Packs/Day Years [...] encounter Miscellaneous Notes * Telephone Encounter - Irene Tracy RN - 11/07/2014 4:31 PM EST Spoke with patient, advised of recommendations for physician below. She is able to verbalize understanding. * Telephone Encounter - Gage Argueta MD - 11/07/2014 2:32 PM EST Pulmonary group at [facility] has good members in it so i would be comfortable with him seeing anyone. Dr Canas has seen some of my pt and she appears to be highly competent * Telephone Encounter - Irene Tracy RN - 11/07/2014 1:[address] Argueta- former patient of Dr. Carter's with hx of severe COPD. She wishes to continue care closer to home, [place], recommended [facility] Pulmonology. She is agreeable to this, did advise she will require referral from PCP to be seen in [facility] Pulmonology, she inquired who would we recommend for her to see there. Do you have any suggestions? * Telephone Encounter - Danis Mcpherson - 11/07/2014 10:39 AM EST Patient would like to know if any of our Bakery Decorator's could recommend a Pulmonary doctor closer to her [place] home at either [facility] or [facility]. documented in this encounter Plan of Treatment Upcoming Encounters Date Type Department Care Team (Late st Contact Info) Description 05/18/2024 4:30 PM EDT Office [place] [address] Carmelina Donaldson MD [facility] [place] [address] 05/31/2024 1:00 PM EDT Appointment [place] [phone] documented as of this encounter Visit Diagnoses Not on filedocumented in this encounter Care Teams Hawk Missile Air Defense Artillery Relationship Specialty Start Date End Date Uyen Gerard MD [address] [place] [address] PCP - General 07/01/13 documented as of this encounter
--- OUTSIDE RECORDS SUMMARY | 2024-04-26 02:20 | XMS_ITS | Encounter Summary ---
Author Organization [facility] [place] [address] Care Team Providers Care Shift Mechanic Name Role Phone Michael Perez MD Primary Care Provider [phone] Encounter Details Date Type Department Care Team (Late st Contact Info) Description 06/18/2012 11:15 AM EDT Office Visit Ultrasound at [address] [address] Social History Tobacco Use Types Packs/Day [...] 4:30 PM EDT Office [place] [phone] Carmelina Donaldson MD [facility] [address] 05/31/2024 1:00 PM EDT [place] [phone] documented as of this encounter Procedures Procedure Name Priority Date/Time Associated Diagnosis Comments US RETROPERITONEAL COMPLETE Routine 06/18/2012 11:24 AM EDT documented in this encounter Results * US RETROPERITONEAL COMPLETE (06/18/2012 11:24 AM EDT) Anatomical Region Laterality Modality Abdomen Ultrasound 06/18/2012 11:2 4 AM EDT Narrative 06/18/2012 11:27 AM EDT Examination US Retroperitoneal Complete Clinical History RENAL CELL CANCER Comparison None. Findings The urinary bladder is unremarkable, no diverticulum or wall thickening. ??The right kidney has been surgically removed. ??The left kidney appears slightly hypertrophied, 12.2 cm without stones or hydronephrosis or mass. Impression Normal left kidney and bladder. ??Status post right nephrectomy. Procedure Note Panda Orellana MD - 06/18/2012 Examination US Retroperitoneal Complete Clinical History RENAL CELL CANCER Comparison None. Findings The urinary bladder is unremarkable, no diverticulum or wall thickening.The right kidney has been surgically removed. The left kidney appearsslightly hypertrophied, 12.2 cm without stones or hydronephrosis or mass. Impression Normal left kidney and bladder. Status post right nephrectomy. Mirta Sorenson MD IM US GEN ORDERABLE S documented in this encounter Visit Diagnoses Not on filedocumented in this encounter Care Teams Shift Mechanic Relationship Specialty Start Date End Date Michael Perez MD PCP - General 04/24/11 03/10/13 documented as of this encounter
--- OUTSIDE RECORDS SUMMARY | 2024-04-26 02:20 | XMS_ITS | Encounter Summary ---
Author Organization [facility] [place] [address] Care Team Providers Care Paraffin Machine Operator Name Role Phone Uyen Gerard MD Primary Care Provider [phone] Encounter Details Date Type Department Care Team (Late st Contact Info) Description 05/29/2021 4:00 PM EDT Office [place] [address] Carmelina Donaldson MD [facility] [place] [address] Dyspnea, unspecified type; Opacities of both lungs present on chest x-ray Social History Tobacco Use Types Packs/Day Years [...] as of this encounter Progress Notes * Carmelina Donaldson MD - 05/29/2021 4:00 PM EDT Images from the original note were not included. [facility] Section of Pulmonary and [...] or GERD. She had a CT scan earlierThis month that showed diffuse tree in bud [...] pleural based nodules which are new. SPIROMETRY: I personally reviewed her PFTs from today which showed mild airflow obstruction with air trapping and a mildly reduced DLCO. PFT Results Office Visit from 03/31/2014 in Pulmonology at [facility] Office Visit from 09/16/2013 in Pulmonology at [facility] Office Visit from 03/11/2013 in Pulmonology at [facility] PFT Results Peak Flow 300 L/min [...] an inflammatory process compared to past imaging. PFTs how airflow obstruction with air trapping. Although the etiology is not clear, the imaging abnormalities appear to be secondary to an infectious or inflammatory process. Potential etiologies include atypical infections such as MAC, fungal infection, or autoimmune process. Given her imaging, we will plan to proceed with a bronchoscopy with BAL to assess for infectious or inflammatory etiologies. CARMELINA DONALDSON MD 05/29/2021 3:49 PM documented in this encounter Plan of Treatment Upcoming Encounters Date Type Department Care Team (Late st Contact Info) Description 05/18/2024 4:30 PM EDT Office [place] [phone] Carmelina Donaldson MD [facility] [place] [address] 05/31/2024 1:00 PM EDT Appointment [place] [phone] documented as of this encounter Visit Diagnoses Diagnosis Dyspnea, unspecified type Opacities of both lungs present on chest x-ray documented in this encounter Care Teams Paraffin Machine Operator Relationship Specialty Start Date End Date Uyen Gerrad MD [facility] [address] [facility] [address] [place] [address] PCP - General 07/01/13 documented as of this encounter
--- OUTSIDE RECORDS SUMMARY | 2024-04-26 02:20 | XMS_ITS | Encounter Summary ---
Author Organization [facility] [place] [address] Care Team Providers Care Ceramic Mold Designer Name Role Phone Uyen Gerard MD Primary Care Provider [phone] Encounter Details Date Type Department Care Team (Late st Contact Info) Description 11/02/2015 Telephone [place] [address] Tami Chatman Social History Tobacco Use Types Packs/Day Years [...] encounter Miscellaneous Notes * Telephone Encounter - Tami Rosado - 11/02/2015 10:27 AM EST Called PT. No answering machine. Will try again at later date. documented in this encounter Plan of Treatment Upcoming Encounters Date Type Department Care Team (Late st Contact Info) Description 05/18/2024 4:30 PM EDT Office [place] [phone] Carmelina Donaldson MD [facility] [place] [address] 05/31/2024 1:00 PM EDT Appointment [place] [address] documented as of this encounter Visit Diagnoses Not on filedocumented in this encounter Care Teams Ceramic Mold Designer Relationship Specialty Start Date End Date Uyen Gerard MD [facility] [address] [facility] [address] [place] [address] PCP - General 07/01/13 documented as of this encounter
--- OUTSIDE RECORDS SUMMARY | 2024-04-26 02:20 | XMS_ITS | Encounter Summary ---
Author Organization [facility] [place] [address] Care Team Providers Care Nurse'S Companion Name Role Phone Uyen Gerard MD Primary Care Provider [phone] Encounter Details Date Type Department Care Team (Late st Contact Info) Description 02/12/2022 Orders Only [place] [phone] Manuel Ricks MD [facility] [place] [address] Chronic kidney disease, unspecified CKD stage; Vitamin [...] 4:30 PM EDT Office [place] [phone] Carmelina Donaldson MD [facility] [place] [address] 05/31/2024 1:00 PM EDT [place]ointment [place] [address] documented as of this encounter Results * Magnesium (02/14/2022 8:55 AM EDT) Magnesium 0.94 0.69 - 1.07 mmol/L [facility] Blood 02/14/2022 8:55 AM EDT 02/14/2022 9:03 AM EDT Narrative Resulting Agency Comment Spec In Lab Manuel Ricks MD CHEMISTRY ORDERABLES Performing Organization Address City/[facility]/ZIP Co de Phone Number [facility] [place] [address] * Vitamin D, 25-Hydroxy (02/14/2022 8:55 AM EDT) Pathologist [facility] Vitamin D Total 25 OH 84 21 - 100 ng/mL [facility] Vit D Interp Sufficient [facility] Blood 02/14/2022 8:55 AM EDT 02/14/2022 9:03 AM EDT Narrative Resulting Agency Comment Spec In Lab Manuel Ricks MD CHEMISTRY ORDERABLES Performing Organization Address City/[facility]/ZIP Co de Phone Number [facility] [place] [address] * PTH (02/14/2022 8:55 AM EDT) Parathyroid Hormone 63 15 - 65 pg/mL [facility] Blood 02/14/2022 8:55 AM EDT 02/14/2022 9:03 AM EDT Narrative Resulting Agency Comment Spec In Lab Manuel Ricks MD CHEMISTRY ORDERABLES [facility] [place] [address] * Albumin Level (02/14/2022 8:55 AM EDT) Pathologist [facility] Albumin 4.2 3.2 - 5.2 g/dL [facility] Blood 02/14/2022 8:55 AM EDT 02/14/2022 9:03 AM EDT Narrative Resulting Agency Comment Spec In Lab Manuel Ricks MD CHEMISTRY ORDERABLES Performing Organization Address [facility] Co de Phone Number [facility] [place] [address] * Phosphorus (02/14/2022 8:55 AM EDT) Phosphorus 2.9 2.5 - 4.5 mg/dL [facility] Blood 02/14/2022 8:55 AM EDT 02/14/2022 9:03 AM EDT Narrative Resulting Agency Comment Spec In Lab Manuel Ricks MD CHEMISTRY ORDERABLES Performing Organization Address [facility] de Phone Number [facility] [place] [address] * (ABNORMAL) Basic Metabolic Panel (non-fasting) (02/14/2022 8:55 AM EDT) Glucose 94 65 - 199 mg/dL [facility] Comment:Diabetes: >=200 mg/d L plus symptoms Blood Urea Nitrogen 29(H) 8 - 18 mg/dL [facility] Creatinine 0.98 0.70 - 1.20 mg/dL [facility] Sodium 127(L) 135 - 145 mmol/L [facility] Potassium 4.8 3.5 - 5.0 mmol/L [facility] Comment: Please note: ??Patients with WBC >100,000 may have falsely elevated Potassium levels. ??For accurate Potassium quantification in these patients send serum separator tube (gold top) for subsequent determinations. ??Contact the Clinical Chemistry Laboratory if there are any questions. Chloride 89(L) 98 - 107 mmol/L [facility] Carbon Dioxide 30 22 - 31 mmol/L [facility] Anion Gap 8 5 - 15 mmol/L [facility] Calcium 9.6 8.5 - 10.5 mg/dL [facility] Est Glomerular Filtration Rate 53(L) >=60 mL/min/1. 73 m?? [facility] Comment: This patient? s estimated [...] In Lab Manuel Ricks MD CHEMISTRY ORDERABLES [facility] [place] [address] documented in this encounter Visit Diagnoses Diagnosis Chronic kidney disease, unspecified CKD stage Vitamin D deficiency Unspecified vitamin D deficiency documented in this encounter Care Teams Nurse'S Companion Relationship Specialty Start Date End Date Uyen Gerard MD [address] [place] [address] PCP - General 07/01/13 documented as of this encounter
--- OUTSIDE RECORDS SUMMARY | 2024-04-26 02:20 | XMS_ITS | Encounter Summary ---
Author Organization [facility] Address [facility] [place] [address] Care Team Providers Care Sheep Farm Worker Name Role Phone Uyen Zamora MD Primary Care Provider [phone] Reason for Visit * Reason Comments COPD Encounter Details Date Type Department Care Team ([facility] st Contact Info) Description 09/16/2013 3:00 PM EST Office Visit Pulmonology at [address] [address] Ming Carter MD [facility] [address] [address] COPD, moderate (Primary Dx) Social History Tobacco Use Types Packs/Day Years [...] kg (139 lb 3.2 oz) 09/16/2013 3:13 P M EST Height 162.6 cm (5' 4) 09/16/2013 3:13 PM EST Body Mass Index 23.89 09/16/2013 3:13 PM EST documented in this encounter Patient Instructions * Patient Instructions* Ming Carter MD - 09/16/2013 3:50 PM EST I [...] you develop DIARRHEA please stop this antibiotic and call my office. If you have any new concerns, questions or symptoms, please call my office [phone]. documented in this encounter Progress Notes * Ming Carter MD - 09/16/2013 3:39 PM [...] into the lungs daily. 90 capsule 3 ??? SUMAtriptan (IMITREX) 25 mg tablet Take 50 mg by mouth as needed. ??? metoprolol (LOPRESSOR) 100 mg tablet Take 50 mg by mouth 2 times daily. ??? meclizine (ANTIVERT) 25 mg tablet Take 25 mg by mouth 3 times daily as needed. ??? orpanwndbo-nmhwotr-ktsansmd (FIORINAL) 50-325-40 mg per tablet Take 1 [...] file Social History Narrative Grew up in [place] after world [place], left in 1959First worked in [employer] until 1999Had asbestos on pipes in the office in which she worked.Pt lives with her in a home. 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 Physical Exam: Body mass index is 23.89 [...] remarkably good. She plans on traveling to [facility] shortly. I think it would be [...] at anytime if new respiratory symptoms (examples werediscussed) or if new questions or concerns develop. [...] you develop DIARRHEA please stop this antibiotic and call my office. If you have any new concerns, questions or symptoms, please call my office [phone]. CC: UYEN ZAMORA MD Dear Dr. Zamora, [...] phlegm, cough, or fever while away in [place]. I will see her back at the end of the summer or sooner as needed. Additional details are attached. Thank you for allowing me to assist in this patient's care, documented in this encounter Plan of Treatment Upcoming Encounters Date Type Department Care Team (Late st Contact Info) Description 05/18/2024 4:30 PM EDT Office [place] [address] Carmelina Donaldson MD [facility] [place] [address] 05/31/2024 1:00 PM EDT Appointment [place] [phone] documented as of this encounter Visit Diagnoses Diagnosis COPD, moderate- Primary Chronic airway obstruction, not elsewhere classified documented in this encounter Care Teams Sheep Farm Worker Relationship Specialty Start Date End Date Uyen Zamora MD [facility] [address] [email or web address] 1 [place] [address] PCP - General 07/01/13 documented as of this encounter
--- OUTSIDE RECORDS SUMMARY | 2024-04-26 02:20 | XMS_ITS | Encounter Summary ---
Author Organization [facility] Address [facility] [place] [address] Care Team Providers Care Dollyman Name Role Phone Uyen Gerard MD Primary Care Provider [phone] Encounter Details Date Type Department Care Team (Late st Contact Info) Description 05/29/2015 1:55 PM EDT - 05/29/2015 11:59 PM EDT Hospital [place] [address] Jannie Oviedo MD [facility] [place] [address] CKD (chronic kidney disease), stage III Discharge Disposition: Home Social History Tobacco Use [...] Date End Date amLODIPine (NORVASC) 5 mg Tablet Take 5 [...] 4 hours as needed. Use with spacer 02/24/2019 tiotropium (SPIRIVA) 18 mcg inhalation capsuleIndications:Medi cation refill Inhale 1 capsule into the lungs daily. 90 capsule 3 04/05/2012 02/24/2019 Cod Liver Oil Cap 01/02/2009 05/08/2021 documented as of this encounter Plan of Treatment Upcoming Encounters Date Type Department Care Team (Late st Contact Info) Description 05/18/2024 4:30 PM EDT Office [place] [address] Carmelina Donaldson MD [facility] [place] [address] 05/31/2024 1:00 PM EDT Appointment [place] [phone] documented as of this encounter Procedures Procedure Name Priority Date/Time Associated Diagnosis Comments PTH Routine 05/29/2015 2:12 PM EDT CKD (chronic kidney disease), stage III documented in this encounter Results * PTH (05/29/2015 2:12 PM EDT) Parathyroid Hormone 31 15 - 65 pg/mL ALNIE HARRELL Blood specimen (specimen) 05/29/2015 2:12 PM EDT 05/29/2015 2:26 PM EDT Narrative Resulting Agency Comment Spec In Lab Jannie Oviedo MD CHEMISTRY ORDERABLE S LANIE ROPERTangler documented in this encounter Visit Diagnoses Diagnosis CKD (chronic kidney disease), stage III Chronic kidney disease, Stage III (moderate) documented in this encounter Care Teams Dollyman Relationship Specialty Start Date End Date Uyen Gerard MD [address] [place] [address] PCP - General 07/01/13 documented as of this encounter
--- OUTSIDE RECORDS SUMMARY | 2024-04-26 02:20 | XMS_ITS | Encounter Summary ---
Author Organization [facility] [place] [address] Care Team Providers Care Aircraft Refueller Name Role Phone Uyen Gerard MD Primary Care Provider [phone] Reason for Visit * Reason Comments Skin Check Encounter Details Date Type Department Care Team (Late st Contact Info) Description 01/02/2015 10:45 AM EDT Office Visit Dermatology at [place] [address] [facility] [address] [place] [address] Daniel Gupta MD [address], [place] [address] Stucco keratosis; Seborrheic keratosis; Dermal nevus of other site; Solar lentigo Discharge Disposition: Home Social History Tobacco Use [...] documented as of this encounter Patient Instructions * Patient Instructions* Kristie Madrigal LPN - 01/02/2015 11:03 AM EDT Images from the original note were not included. [facility] Seborrheic Keratosis: After Your Visit Your Care Instructions Seborrheic keratoses are raised skin growths that look scaly or warty. They usually look like they were stuck onto the skin. They most often grow in groups on the back or chest and are more common inolder people. A seborrheic keratosis can be marshall or dark brown. A seborrheic keratosis is not a moleand never turns into cancer. But it is still a good idea to check your skin regularly. Sometimes a seborrheic keratosis can itch. Scratching it can cause it to bleed and sometimes even scar. A seborrheic keratosis is removed only if it bothers you. The doctor will freeze it or scrape it off with a tool. The doctor can also use [...] a good idea to know your test resultsand keep a list of the medicines you [...] growths or other changes, such as color and feel of the skin. ?? automotive technology instructor front of a full-length mirror. Look carefully [...] more? Visit our health information library at [email or web address] You can also view health information on [employer], your personal patient account. Log in or sign up today. Enter Z945 in the search box to learn more about Seborrheic Keratosis: After Your Visit. ?? [id number] [employer] Care instructions adapted under license by [facility]. This care instruction is for use with your licensed healthcare professional. If you have questions about a medical condition or this instruction, always ask your healthcare professional. [employer] disclaims any warranty or liability for your use of this information. Content Version: 10.3.586724; Current as of: November 16, 2013 documented in this encounter Progress Notes * Daniel Gupta MD - 01/02/2015 11:18 AM [...] 79-year-old woman who has a 1-cm, dark, zcfit-av-ujnzg, evenly pigmented, symmetric, and regularly margined junctional [...] large, 3.5-cm solar lentigo on the right anabaptism area; a small 8-mm seborrheic keratosis with a waxy, stuck-on, somewhat pedunculated appearance medially at the right immediate lateral canthus; and she has a 1.5-cm seborrheic keratosis developing on a solar lentigo on the left anabaptism area. Otherwise, examination of the head and [...] 4:30 PM EDT [place] [address] Carmelina Donaldson MD [facility] [address] [place] [address] 05/31/2024 1:00 PM EDT [place] [address] documented as of this encounter Visit Diagnoses Diagnosis Stucco keratosis Acquired keratoderma Seborrheic keratosis Other seborrheic keratosis Dermal nevus of other site Benign neoplasm of other specified sites of skin Solar lentigo Other dyschromia documented in this encounter Care Teams Aircraft Refueller Relationship Specialty Start Date End Date Uyen Gerard MD [facility] [address] [facility] [address] [place] [address] PCP - General 07/01/13 documented as of this encounter
--- OUTSIDE RECORDS SUMMARY | 2024-04-26 02:20 | XMS_ITS | Encounter Summary ---
Author Organization [facility] [place] [address] Care Team Providers Care Client Services Coordinator Name Role Phone Lisa Murdock MD Primary Care Provider [phone] Reason for Visit * Reason Comments Follow-up Encounter Details Date Type Department Care Team ([facility] Contact Info) Description 06/17/2012 11:30 AM EDT Office Visit Pulmonology at [address] [address] Ming Carter MD [facility] AT [address] [address] COPD (chronic obstructive pulmonary disease) (Primary Dx); Flu vaccine need; Need for vaccination Social History Tobacco Use Types Packs/Day Years [...] * Patient Instructions* Ming Carter MD - 06/17/2012 11:47 AM EDT I am happy you are doing well today. Please do not make any change in your therapy. Flu vaccine today. Call with any new concerns. documented in this encounter Progress Notes * Olena Bueno CMA - 06/17/2012 12:00 PM EDTAddended by: OLENA BUENO on: 06/17/2012 Modules accepted: Orders * Ming Carter MD - 06/17/2012 11:42 AM EDT Follow-up Office Visit Established Patent Jerri Velasco is a 77 y.o. female returns for follow-up of Severe COPD. She tells me she is doingwell. Lots work around the house. Tired with heavy exertion. Stairs do lead to fatigue. Resting a few minutes lead to recovery. Dry cough, no phlegm. [...] the lungs daily. 90 capsule 3 ??? Cholecalciferol, Vitamin D3, (VITAMIN D) 5,000 unit Tab Take by mouth. ??? SUMAtriptan (IMITREX) 25 mg tablet Take 50 mg by mouth as needed. ??? metoprolol (LOPRESSOR) 100 mg tablet Take 50 mg by mouth 2 times daily. ??? meclizine (ANTIVERT) 25 mg tablet Take 25 mg by mouth 3 times daily as needed. ??? cxhmocxmea-vsjycul-xkyyfstt (FIORINAL) 50-325-40 mg per tablet Take 1 [...] file Social History Narrative Grew up [place] after [place], left in 1959First worked in [employer] until 1999Had asbestos on pipes in the office in which she worked.Pt lives with her in a home. 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 Physical Exam: Blood pressure 140/84, pulse 78, [...] today. Call with any new concerns. CC: LISA MURDOCK MD documented in this encounter Plan of Treatment Upcoming Encounters Date Type Department Care Team (Late st Contact Info) Description 05/18/2024 4:30 PM EDT Office [place] [address] Carmelina Donaldson MD [facility] [place] [address] 05/31/2024 1:00 PM EDT Appointment [place] [address] documented as of this encounter Visit Diagnoses Diagnosis COPD (chronic obstructive pulmonary disease)- Primary Chronic airway obstruction, not elsewhere classified Flu vaccine need Need for prophylactic vaccination and inoculation against influenza Need for vaccination Need for prophylactic vaccination and inoculation against unspecified single disease documented in this encounter Care Teams Client Services Coordinator Relationship Specialty Start Date End Date Lisa Murdock MD PCP - General 04/24/11 03/10/13 documented as of this encounter
--- OUTSIDE RECORDS SUMMARY | 2024-04-26 02:20 | XMS_ITS | Encounter Summary ---
Author Organization [facility] [place] [address] Care Team Providers Care Tannery Gummer Name Role Phone Uyen Gerard MD Primary Care Provider [phone] Encounter Details Date Type Department Care Team (Latest Contact Info) Description 11/05/2020 4:30 PM EST TH Visit (TeleHealth) Nephrology [place] [address] Nicolás Gallagher MD [facility] [place] [address] Essential hypertension Social History Tobacco Use Types [...] Progress Notes * Nicolás Gallagher MD - 11/05/2020 4:30 PM [...] feeling well and a review of systems is negative Recent labs: 10/31/20 Na 131 K 4.5 [...] 4:30 PM EDT Office Visit [place] [address] Carmelina Donaldson MD [facility] [place] [address] 05/31/2024 1:00 PM EDT Appointment [place] [address] documented as of this encounter Visit Diagnoses Diagnosis Essential hypertension Unspecified essential hypertension documented in this encounter Care Teams Tannery Gummer Relationship Specialty Start Date End Date Uyen Gerard MD [address] [place] [address] PCP - General 07/01/13 documented as of this encounter
--- OUTSIDE RECORDS SUMMARY | 2024-04-26 02:20 | XMS_ITS | Encounter Summary ---
Author Organization [facility] [place] [address] Care Team Providers Care Grinder Operator Tool Name Role Phone Uyen Gerard MD Primary Care Provider [phone] Encounter Details Date Type Department Care Team (Late st Contact Info) Description 04/03/2021 Telephone [place] [address] Tami Hunter Social History Tobacco Use Types Packs/Day Years [...] 4:30 PM EDT Office [place] [address] Carmelina Donaldson MD [facility] P[place]MONARY [place] [address] 05/31/2024 1:00 PM EDT Appointment [place] [address] documented as of this encounter Visit Diagnoses Not on filedocumented in this encounter Care Teams Grinder Operator Tool Relationship Specialty Start Date End Date Uyen Gerard MD [address] [place] [address] PCP - General 07/01/13 documented as of this encounter
--- OUTSIDE RECORDS SUMMARY | 2024-04-26 02:20 | XMS_ITS | Encounter Summary ---
Author Organization [facility] [place] [address] Care Team Providers Care Manager Of Investigations Name Role Phone Uyen Gerard MD Primary Care Provider [phone] Encounter Details Date Type Department Care Team (Late st Contact Info) Description 01/01/2021 Orders [place] [address] Geraldine Sky MD [facility] [address] Bronchiectasis without complication (Primary Dx) Social History Tobacco Use Types [...] 4:30 PM EDT Office [place] [address] Carmelina Donaldson MD [facility] [place] [address] 05/31/2024 1:00 PM EDT [place]oint[place] [address] documented as of this encounter Visit Diagnoses Diagnosis Bronchiectasis without complication- Primary Bronchiectasis without acute exacerbation documented in this encounter Care Teams Manager Of Investigations Relationship Specialty Start Date End Date Uyen Gerard MD [address] [place] [address] PCP - General 07/01/13 documented as of this encounter
--- OUTSIDE RECORDS SUMMARY | 2024-04-26 02:20 | XMS_ITS | Encounter Summary ---
Author Organization [facility] [place] [address] Care Team Providers Care Miner Helper Name Role Phone Uyen Zamora MD Primary Care Provider [phone] Encounter Details Date Type Department Care Team (Late st Contact Info) Description 01/07/2016 10:00 AM EDT Office Visit [place] [address] Jannie Oviedo MD [facility] [place] [address] Nicolás Gallagher MD [facility] [address] [place] [address] Tremaine Bustillos MD [facility] [place] [address] CKD (chronic kidney disease) stage 3, GFR 30-59 ml/min Social History Tobacco Use Types Packs/Day Years [...] Progress Notes * Nicolás Gallagher MD - 01/08/2016 8:35 AM EDT The patient was examined together with the renal fellow and I agree with the above notewhich accurately reflects our findings and assessment * Tremaine Bustillos - 01/07/2016 9:38 AM EDT [facility] Nephrology/Hypertension Follow Up Jerri Velasco [id number] ID: [id number] y.o. female for CKD [...] inhaler Inhale 2 puffs into the lungs every4 hours as needed. Use with spacer Yes [...] Blood pressure is controlled on current regimen. She wants bmp to be checked at an outside lab for results to be faxed here. -blood pressure is controlled. Goal <150/90 -CKD G3A0. No labs today. Labs will be faxed here. -avoid nephrotoxins/nsaids -follow up in 6 months. Seen and Discussed w/ Dr. Aileen Leblanc. MD [facility] Fellow Pager# [phone] UYEN ZAMORA MD [facility] [address] [place] [address] documented in this encounter Plan of Treatment Upcoming Encounters Date Type Department Care Team (Late st Contact Info) Description 05/18/2024 4:30 PM EDT Office [place] [address] Carmelina Donaldson MD [facility] [address] [place] [address] 05/31/2024 1:00 PM EDT [place] [address] documented as of this encounter Procedures Procedure Name Priority Date/Time Associated Diagnosis Comments PROTEIN/CREATININE RATIO, URINE Routine 01/07/2016 9:30 AM EDT CKD (chronic kidney disease) stage 3, GFR 30-59 ml/min U ALBUMIN/CRE RATIO Routine 01/07/2016 9 :30 AM EDT CKD (chronic kidney disease) stage 3, GFR 30-59 ml/min documented in this encounter Results * Microalbumin, urine, random (01/07/2016 9:30 AM EDT) Creatinine, Urine 31 mg/dL [facility] Albumin, Urine <3.0 mg/L [facility] Albumin / Creatinin Ratio, Urine <10 mcg/mg Cr [facility] Comment: Reference Range* Random collection (mcg/mg creatinine) Normal ?<30 Microalbuminuria ?? 30 - 300 Clinical Albuminuria ?? >300 *[place] Diabetes Association. Diabetic Nephropathy. Diabetes Care 1996;(Suppl 1):S24-S27 Exercise within 24 hour, infection, fever, CHF, marked hyperglycemia, and marked hypertension may elevate urinary albumin excretion over baseline values. Urine specimen (specimen) 01/07/2016 9:30 AM EDT 01/07/2016 10:14 AM EDT Narrative Resulting Agency Comment Spec In Lab Jannie Oviedo MD URINE ORDERABLES Performing Organization Address City/[facility] Co de Phone Number [facility] [place] [address] * Protein/Creatinine Ratio, urine (01/07/2016 9:30 AM EDT) Creatinine, Urine 33 mg/dL [facility] Protein, Urine <6 0 - 12 mg/dL [facility] Protein / Creatinine Ratio, Urine <0.2 ratio [facility] Urine specimen (specimen) 01/07/2016 9:30 AM EDT 01/07/2016 10:16 AM EDT Narrative Resulting Agency Comment Spec In Lab Jannie Oviedo MD URINE ORDERABLES Performing Organization Address [facility] Co de Phone Number [facility] [place] [address] documented in this encounter Visit Diagnoses Diagnosis CKD (chronic kidney disease) stage 3, GFR 30-59 ml/min Chronic kidney disease, Stage III (moderate) documented in this encounter Care Teams Miner Helper Relationship Specialty Start Date End Date Uyen Zamora MD [address] [place] [address] PCP - General 07/01/13 documented as of this encounter
--- OUTSIDE RECORDS SUMMARY | 2024-04-26 02:20 | XMS_ITS | Encounter Summary ---
Author Organization [facility] [place] [address] Care Team Providers Care Skin Piler Name Role Phone Michael Perez MD Primary Care Provider [phone] Reason for Visit * Reason Comments COPD Encounter Details Date Type Department Care Team ([facility] st Contact Info) Description 03/11/2013 10:00 AM EDT Office Visit Pulmonology at [address] [address] Ming Carter MD [facility] [address] [address] COPD (chronic obstructive pulmonary disease) (Primary Dx); Peripheral edema Social History Tobacco Use Types Packs/Day Years [...] Saturation 97% 03/11/2013 10:07 AM EDT room air Inhaled Oxygen Concentration - - Weight 61.3 kg (135 lb 3.2 oz) 03/11/2013 10:07 AM EDT Height 165.1 cm (5' 5) 03/11/2013 10:07 AM EDT Body Mass Index 22.5 03/11/2013 10:07 AM EDT documented in this encounter Patient Instructions * Patient Instructions* Ming Carter MD - 03/11/2013 10:37 AM EDT I [...] questions or symptoms, please call my office [phone]. documented in this encounter Progress Notes * Ming Carter MD - 03/11/2013 10:26 AM [...] in the form of gardening. [facility]CP recently in [facility]. Making plans to go to [place] next [place]. Sleep has not been interrupted [...] mouth 3 times daily as needed. ??? 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 Physical Exam: Body mass index is 22.50 [...] She tells me she is going to [place] in the winter and is a bit [...] of 2013, prior to her trip to [facility] [place]. 2. Edema. In light of her renal [...] questions or symptoms, please call my office [phone]. CC: Uyen Gerard MD [place], [place] documented in this encounter Plan of Treatment Upcoming Encounters Date Type Department Care Team (Late st Contact Info) Description 05/18/2024 4:30 PM EDT Office [place] [address] [facility] [place] [address] 05/31/2024 1:00 PM EDT Appointment Pulmonology at [facility] [place] [address] documented as of this encounter Results * (ABNORMAL) Basic Metabolic Panel (non-fasting) (03/11/2013 11:15 AM EDT) [facility] Glucose 83 60 - 199 mg/dL [facility] Comment:Diabetes: >=200 mg/d L plus symptoms Blood Urea Nitrogen 19(H) 8 - 18 mg/dL [facility] Creatinine 1.07 0.70 - 1.20 mg/dL [facility] Comment: Please note that the pediatric reference intervals supplied above were not validated at [facility]. Results from pediatric patients should be interpreted [...] Lab Ming Carter MD CHEMISTRY ORDERABLE S Performing Organization Address City/State/[facility] Co md Phone Number [facility] documented in this encounter Visit Diagnoses Diagnosis COPD (chronic obstructive pulmonary disease)- Primary Chronic airway obstruction, not elsewhere classified Peripheral edema Edema documented in this encounter Care Teams Skin Piler Relationship Specialty Start Date End Date Michael Perez MD PCP - General 03/11/13 03/13/13 documented as of this encounter
--- OUTSIDE RECORDS SUMMARY | 2024-04-26 02:20 | XMS_ITS | Encounter Summary ---
Author Organization [facility] [place] [address] Care Team Providers Care Sheet Metal Shop Foreman Name Role Phone Uyen Gerard MD Primary Care Provider [phone] Reason for Visit * Reason Onset Date Comments Other 01/02/2014 Appointment Encounter Details Date Type Department Care Team ([facility] Contact Info) Description 01/02/2014 Telephone Pulmonology at [address] [address] Ming Carter MD [facility] AT [address] [address] Other (Appointment) Social History Tobacco Use Types Packs/Day Years [...] encounter Miscellaneous Notes * Telephone Encounter - Danis Mcpherson - 01/02/2014 11:33 AM EDT No appointments available in April worked for patient. She schedule FUV for 03/31 at 2:50 pm. * Telephone Encounter - Toña Castillo - 01/02/2014 11:16 AM EDT Patient calling today to book an [place], follow up appointment. documented in this encounter Plan of Treatment Upcoming Encounters Date Type Department Care Team (Late st Contact Info) Description 05/18/2024 4:30 PM EDT Office [place] [address] [facility] [place] [address] 05/31/2024 1:00 PM EDT Appointment [place] [address] documented as of this encounter Visit Diagnoses Not on filedocumented in this encounter Care Teams Sheet Metal Shop Foreman Relationship Specialty Start Date End Date Uyen Gerard MD [facility] [address] [place] [address] PCP - General 07/01/13 documented as of this encounter
--- OUTSIDE RECORDS SUMMARY | 2024-04-26 02:20 | XMS_ITS | Encounter Summary ---
Author Organization [facility] [place] [address] Care Team Providers Care Tool Inspector Name Role Phone Uyen Gerard MD Primary Care Provider [phone] Encounter Details Date Type Department Care Team (Latest Contact Info) Description 03/17/2019 12:40 PM EDT Laboratory Appointment Lab [address] [place] [address] Essential hypertension Social History Tobacco Use Types [...] 4:30 PM EDT Office [place] [address] Carmelina Donaldson MD [facility] [place] [address] 05/31/2024 1:00 PM EDT Appointment [place] [address] documented as of this encounter Procedures Procedure Name Priority Date/Time Associated Diagnosis Comments BASIC METABOLIC PANEL Routine 03/17/2019 12:47 PM EDT Essential hypertension documented in this encounter Results * (ABNORMAL) Basic Metabolic Panel (non-fasting) (03/17/2019 12:47 PM EDT) Glucose 79 65 - 199 mg/dL [facility] Comment:Diabetes: >=200 mg/d L plus symptoms Blood Urea Nitrogen 21(H) 8 - 18 mg/dL [facility] Creatinine 1.01 0.70 - 1.20 mg/dL [facility] Sodium 136 135 - 145 [...] questions. Chloride 99 98 - 107 mmol/L [facility] Carbon Dioxide 29 22 - 31 mmol/L [facility] Anion Gap 8 5 - 15 mmol/L [facility] Calcium 9.2 8.5 - 10.5 mg/dL [facility] Est Glomerular Filtration Rate 52(L) >=60 mL/min/1. 73 m?? [facility] Comment: The eGFR was calculated using the CKD-EPI equation. As with all creatinine based estimates of kidney function, eGFR values calculated with the CKD-EPI equation are not accurate in patients with acute kidney failure, extremes of body mass or the acutely ill. http://[employer]/[facility] eGFR 60 >=60 mL/min/1. 73 m?? [facility] Comment: The eGFR was calculated using the CKD-EPI equation. As with all creatinine based estimates of kidney function, eGFR values calculated with the CKD-EPI equation are not accurate in patients with acute kidney failure, extremes of body mass or the acutely ill. http://[employer]/[facility] Blood specimen (specimen) 03/17/2019 12:47 PM EDT 03/17/2019 12:52 PM EDT Narrative Resulting Agency Comment Spec In Lab Nicolás Gallagher MD CHEMISTRY ORDERABLES [facility] [place] [address] documented in this encounter Visit Diagnoses Diagnosis Essential hypertension Unspecified essential hypertension documented in this encounter Care Teams Tool Inspector Relationship Specialty Start Date End Date Uyen Gerard MD [address] [place] [address] PCP - General 07/01/13 documented as of this encounter
--- OUTSIDE RECORDS SUMMARY | 2024-04-26 02:20 | XMS_ITS | Encounter Summary ---
Author Organization [facility] [place] [address] Care Team Providers Care Chain Hooker Name Role Phone Uyen eGrard MD Primary Care Provider [phone] Encounter Details Date Type Department Care Team (Late st Contact Info) Description 07/01/2013 1:00 PM EDT Laboratory Appointment Laboratory [address] [address] CLINIC, [facility] [address] [place] [address] Mirta Sorenson MD [address] [place] [address] Discharge Disposition: Home Social History Tobacco Use [...] 4:30 PM EDT Office [place] [address] [facility] [place] [address] 05/31/2024 1:00 PM EDT Appointment Pulmonology at [place] [phone] documented as of this encounter Procedures Procedure Name Priority Date/Time Associated Diagnosis Comments DIFFERENTIAL, AUTOMATED Routine 07/01/2013 9:27 AM EDT CBC (WITH DIFF) Routine 07/01/2013 9:27 AM EDT COMPREHENSIVE METABOLIC PANEL Routine 07/01/2013 9:27 AM EDT documented in this encounter Results * Differential, Automated (07/01/2013 9:27 AM EDT) Neutrophil % 68.0 34.0 - 71.0 % CERNER MILLENNIUM Neutrophil Absolute 5.45 1.50 - 6.30 x10(3)/mcL CERNER MILLENNIUM Lymph % 20.0 19.0 - 53.0 % CERNER MILLENNIUM Lymphocytes Abs 1.6 1.0 - 3.6 x10(3)/mcL CERNER MILLENNIUM Monocyte % 10.1 4.0 - 13.0 % CERNER MILLENNIUM Monocyte Abs 0.8 0.2 - 1.0 x10(3)/mcL CERNER MILLENNIUM Eos % 1.2 0.0 - 7.0 % CERNER MILLENNIUM Eosinophils Abs 0.1 0.0 - 0.5 x10(3)/mcL CERNER MILLENNIUM Basophil % 0.5 0.0 - 2.0 % CERNER MILLENNIUM Baso Absolute 0.0 0.0 - 0.2 x10(3)/mcL CERNER MILLENNIUM Immature Gran % 0.20 0.00 - 0.66 % CERNER MILLENNIUM Comment: Immature granulocytes(IG's)percentage and absolute count will include metamyelocytes, myelocytes, and promyelocytes. Blood smears from CBCs yielding IG's will be scanned manually for concordance. If this scan disagrees with the automated IG or if promyelocytes are noted, a manual differential will be performed. Immature Gran Absolute 0.02 0.00 - 0.05 x10(3)/mcL CERNER MILLENNIUM Blood specimen (specimen) 07/01/2013 9:27 AM EDT 07/01/2013 2:[address] Mark CAMARA HEMATOLOGY ORDERABLE S CERNER MILLENNIUM * (ABNORMAL) Comprehensive metabolic panel (non-fasting) (07/01/2013 9:27 AM EDT) Glucose 90 60 - 199 mg/dL CERNER MILLENNIUM Comment:Diabetes: >=200 mg/d L plus symptoms Blood Urea Nitrogen 19(H) 8 - 18 mg/dL CERNER MILLENNIUM Creatinine 1.07 0.70 - 1.20 mg/dL CERNER MILLENNIUM Comment: Please note that the pediatric reference intervals supplied above were not validated at [facility]. Results from pediatric patients should be interpreted in conjunction to the patient's age, height and muscle mass. Sodium 134(L) 135 - 145 mmol/L CERNER MILLENNIUM Potassium 4.0 3.5 - 5.0 mmol/L CERNER MILLENNIUM Comment: Please note: ??Patients with WBC >100,000 may have falsely elevated Potassium levels. ??For accurate Potassium quantification in these patients send serum separator tube (gold top) for subsequent determinations. ??Contact the Clinical Chemistry Laboratory if there are any questions. Chloride 97(L) 98 - 107 mmol/L CERNER MILLENNIUM Carbon Dioxide 29 22 - 31 mmol/L CERNER MILLENNIUM Anion Gap 8 5 - 15 mmol/L CERNER MILLENNIUM Calcium 9.2 8.5 - 10.5 mg/dL CERNER MILLENNIUM Protein, Total 7.4 6.4 - 8.3 gm/dL CERNER MILLENNIUM Albumin 3.9 3.2 - 5.2 gm/dL CERNER MILLENNIUM Aspartate Aminotransferase 29 0 - 30 unit/L CERNER MILLENNIUM Alanine Aminotransferase 22 0 - 30 unit/L CERNER MILLENNIUM Alkaline Phosphatase 65 40 - 104 unit/L CERNER MILLENNIUM Bilirubin, Total 0.4 0.2 - 1.3 mg/dL CERNER MILLENNIUM Bilirubin, Direct 0.1 0.0 - 0.3 mg/dL CERNER MILLENNIUM Est Glomerular Filtration Rate [...] internet browser. http://www.nkdep.nih.gov/lab-evaluation.shtml http://www.kidney.org/professionals/ Blood specimen (specimen) 07/01/2013 9:27 AM EDT 07/01/2013 1:58 PM EDT Narrative Resulting Agency Comment Spec In Lab Dr Mark CAMARA CHEMISTRY [facility]ABLES [facility] * CBC (with Diff) (07/01/2013 9:27 AM EDT) White Blood Cell 8.0 4.0 - 10.0 x10(3)/mcL CERNER MILLENNIUM Red Blood Cell 4.70 3.93 - 5.22 x10(6)/mcL CERNER MILLENNIUM Hemoglobin 13.9 11.2 - 15.7 gm/dL CERNER MILLENNIUM Hematocrit 42.3 34.0 - 45.0 % CERNER MILLENNIUM Mean Cell Volume 90.0 79.0 - 94.0 fL CERNER MILLENNIUM Mean Cell Hemoglobin 29.6 26.6 - 32.2 pg CERNER MILLENNIUM Mean Cell Hemoglobin Concentration 32.9 32.0 - 36.5 gm/dL CERNER MILLENNIUM Platelet 234 145 - 370 x10(3)/mcL CERNER MILLENNIUM RDW Standard Deviation 43.8 35.0 - 46.0 fL CERNER MILLENNIUM RDW coefficient of variation 13.3 10.9 - 14.4 % CERNER MILLENNIUM Mean Platelet Volume 10.6 9.0 - 12.0 fL CERNER MILLENNIUM Blood specimen (specimen) 07/01/2013 9:27 AM EDT 07/01/2013 2:13 PM EDT Narrative Resulting Agency Comment Spec In Lab Dr Mark CAMARA HEMATOLOGY ORDERABLE S Performing Organization Address City/State/ZIP Co va Phone Number [facility] documented in this encounter Visit Diagnoses Not on filedocumented in this encounter Care Teams Chain Hooker Relationship Specialty Start Date End Date Uyen Gerard MD [address] [facility] [address] [place] [address] PCP - General 07/01/13 documented as of this encounter
--- OUTSIDE RECORDS SUMMARY | 2024-04-26 02:20 | XMS_ITS | Encounter Summary ---
Author Organization [facility] [place] [address] Care Team Providers Care House Supervisor Name Role Phone Uyen Zamora MD Primary Care Provider [phone] Encounter Details Date Type Department Care Team (Late st Contact Info) Description 05/29/2015 1:30 PM EDT Follow-Up [place]ph[place] [phone] CLINIC, Jannie Medrano MD [facility] [place] [address] CKD (chronic kidney disease), stage III Discharge [...] documented in this encounter Progress Notes * Jannie Oviedo MD - 06/01/2015 2:11 PM EDT I have seen the patient and reviewed the fellow's history, and I agree with the details as written.The assessment and plan were formulated in discussion with me, and I agree with them as documented. * Tremaine Bustillos Benji - 05/29/2015 1:33 PM EDT [facility] Nephrology/Hypertension Follow Up Jerri Velasco [id number] [id number] ID: [id number] y.o. female for CKD [...] pressure is controlled on current regimen. -continue 50 mg daily losartan and 5 mg qhs amlodipine -will get on CT scan report of abdomen to evaluate the unilateral kidney -CKD G3. Stable with baseline SCr 1.0. Urine for microalbuminuria pending Hgb at goal. No need for cortney -normal phos and pth. -avoid nephrotoxins/nsaids -follow up in 6 months. Seen and Discussed w/ Dr. Preet Leblanc. MD [employer] [facility] Fellow Pager# [phone] UYEN ZAMORA MD (General) [facility] [address] [place], [place] [address] documented in this encounter Plan of Treatment Upcoming Encounters Date Type Department Care Team (Late st Contact Info) Description 05/18/2024 4:30 PM EDT Office [place] [address] Carmelina Donaldson MD [facility] [place] [address] 05/31/2024 1:00 PM EDT Appointment Pulmonology at [facility] [place] [address] documented as of this encounter Procedures Procedure Name Priority Date/Time Associated Diagnosis Comments HEMOGRAM Routine 05/29/2015 2:12 PM EDT CKD (chronic kidney disease), stage III DIFFERENTIAL, AUTOMATED Routine 05/29/2015 2:12 PM EDT CKD (chronic kidney disease), stage III CBC (WITH DIFF) Routine 05/29/2015 2:12 PM EDT CKD (chronic kidney disease), stage III PHOSPHORUS Routine 05/29/2015 2:12 PM EDT BASIC METABOLIC PANEL Routine 05/29/2015 2:12 PM EDT CKD (chronic kidney disease), stage III documented in this encounter Results * Phosphorus (05/29/2015 2:12 PM EDT) Phosphorus 3.4 2.5 - 4.5 mg/dL LANIE FibersparINDYIUM Blood specimen (specimen) Venous Draw / Unknown 05/29/2015 2:12 PM EDT 05/29/2015 2:26 PM EDT Narrative Resulting Agency Comment Spec In Lab Jannie Oviedo MD CHEMISTRY ORDERABLE S LANIE FibersparINDYIUM * Differential, Automated (05/29/2015 2:12 PM EDT) Neutrophil % 63.5 % CERNER MILLENNIUM Neutrophil Absolute 3.97 1.50 - 6.30 x10(3)/mcL CERNER MILLENNIUM Lymph % 25.3 % CERNER MILLENNIUM Lymphocytes Abs 1.6 1.0 - 3.6 x10(3)/mcL CERNER MILLENNIUM Monocyte % 9.3 % CERNER MILLENNIUM Monocyte Abs 0.6 0.2 - 1.0 x10(3)/mcL CERNER MILLENNIUM Eos % 1.3 % CERNER MILLENNIUM Eosinophils Abs 0.1 0.0 - 0.5 x10(3)/mcL CERNER MILLENNIUM Basophil % 0.6 % CERNER MILLENNIUM Baso Absolute 0.0 0.0 - 0.2 x10(3)/mcL CERNER MILLENNIUM Immature Gran % 0.00 % CERN ER MILLENNIUM Comment: Immature granulocytes(IG's)percentage and absolute count will include metamyelocytes, myelocytes, and promyelocytes. Blood smears from CBCs yielding IG's will be scanned manually for concordance. If this scan disagrees with the automated IG or if promyelocytes are noted, a manual differential will be performed. Immature Gran Absolute 0.00 0.00 - 0.05 x10(3)/mcL CERNER MILLENNIUM Blood specimen (specimen) 05/29/2015 2:12 PM EDT 05/29/2015 2:26 PM EDT Narrative Resulting Agency Comment Spec In Lab Jannie Oviedo MD HEMATOLOGY ORDERABL ES CERDELISA ROPERENNIUM * Hemogram (05/29/2015 2:12 PM EDT) White Blood Cell 6.2 4.0 - 10.0 x10(3)/mcL CERNER MILLENNIUM Red Blood Cell 4.81 3.93 - 5.22 x10(6)/mcL CERNER MILLENNIUM Hemoglobin 14.2 11.2 - 15.7 gm/dL CERNER MILLENNIUM Hematocrit 42.6 34.0 - 45.0 % CERNER MILLENNIUM Mean Cell Volume 88.6 79.0 - 94.0 fL CERNER MILLENNIUM Mean Cell Hemoglobin 29.5 26.6 - 32.2 pg CERNER MILLENNIUM Mean Cell Hemoglobin Concentration 33.3 32.0 - 36.5 gm/dL CERNER MILLENNIUM Platelet 219 145 - 370 x10(3)/mcL CERNER MILLENNIUM RDW Standard Deviation 42.2 35.0 - 46.0 fL CERNER MILLENNIUM RDW coefficient of variation 13.1 10.9 - 14.4 % CERNER MILLENNIUM Mean Platelet Volume 10.2 9.0 - 12.0 fL CERNER MILLENNIUM Blood specimen (specimen) 05/29/2015 2:12 PM EDT 05/29/2015 2:26 PM EDT Narrative Resulting Agency Comment Spec In Lab Jannie Oviedo MD HEMATOLOGY ORDERABL ES Performing Organization Address [facility] Co de Phone Number [facility] MILLENNIUM * PTH (05/29/2015 2:12 PM EDT) Parathyroid Hormone 31 15 - 65 pg/mL [facility] MILLENNIUM Blood specimen (specimen) 05/29/2015 2:12 PM EDT 05/29/2015 2:26 PM EDT Narrative Resulting Agency Comment Spec In Lab Jannie Oviedo MD CHEMISTRY ORDERABLE S Performing Organization Address [facility] de Phone Number [facility] JUDSONENNIUM * (ABNORMAL) Basic Metabolic Panel (non-fasting) (05/29/2015 2:12 PM EDT) Glucose 80 65 - 199 mg/dL [facility] MILLENNIUM Comment:Diabetes: >=200 mg/d L plus symptoms Blood Urea Nitrogen 22(H) 8 - 18 mg/dL CERNER MILLENNIUM Creatinine 1.04 0.70 - 1.20 mg/dL CERNER MILLENNIUM Comment: Please note that the pediatric reference intervals supplied above were not validated at [facility]. Results from pediatric patients should be interpreted in conjunction to the patient's age, height and muscle mass. Sodium 137 135 - 145 mmol/L CERNER MILLENNIUM Potassium 4.5 3.5 - 5.0 mmol/L CERNER MILLENNIUM Comment: Please note: ??Patients with WBC >100,000 may have falsely elevated Potassium levels. ??For accurate Potassium quantification in these patients send serum separator tube (gold top) for subsequent determinations. ??Contact the Clinical Chemistry Laboratory if there are any questions. Chloride 95(L) 98 - 107 mmol/L CERNER MILLENNIUM Carbon Dioxide 28 22 - 31 mmol/L CERNER MILLENNIUM Anion Gap 14 5 - 15 mmol/L CERNER MILLENNIUM Calcium 9.6 8.5 - 10.5 mg/dL CERNER MILLENNIUM Est Glomerular Filtration Rate 51(L) >=60 CERNER MILLENNIUM Comment: This estimated GFR [...] the following links into your internet browser. http://Genprex/DHnkdep [email or web address]/DHMCnkf Blood specimen (specimen) 05/29/2015 2:12 PM EDT 05/29/2015 2:26 PM EDT Narrative Resulting Agency Comment Spec In Lab Jannie Oviedo MD CHEMISTRY ORDERABLE S LANIE HARRELL documented in this encounter Visit Diagnoses Diagnosis CKD (chronic kidney disease), stage III Chronic kidney disease, Stage III (moderate) documented in this encounter Care Teams House Supervisor Relationship Specialty Start Date End Date Uyen Zamora MD [address] [place] [address] PCP - General 07/01/13 documented as of this encounter
--- OUTSIDE RECORDS SUMMARY | 2024-04-26 02:20 | XMS_ITS | Encounter Summary ---
Author Organization [facility] [place] [address] Care Team Providers Care Safety Intern Name Role Phone Uyen Gerard MD Primary Care Provider [phone] Encounter Details Date Type Department Care Team (Latest Contact Info) Description 05/29/2021 1:10 PM EDT - 05/29/2021 11:59 PM EDT Hospital [place] [address] Interstitial lung disease Discharge Disposition: Home Social History Tobacco Use [...] Dispensed Refills Start Date End Date fluticasone [id number] anteroL (Trelegy Ellipta) 100-62.5-25 mcg inhaler (DPI) [...] 4:30 PM EDT [place] [phone] Carmelina Donaldson MD [facility] [place] [address] 05/31/2024 1:00 PM EDT [place]oint[place] [address] documented as of this encounter Procedures Procedure Name Priority Date/Time Associated Diagnosis Comments COMMON PULMONARY FUNCTION TEST Routine 05/29/2021 1:39 PM EDT Interstitial lung disease documented in [...] / FVC LLN 61 % COMPAS PFT JVR44-22 Actual Pre-BD 0.54 L/s COMPAS PFT [id number] Pre-BD % of Predicted 39 % COMPAS PFT MJO16-54 Predicted 1.40 L/s COMPAS PFT PXR87-04 Pre-BD Z-Score -1.69 COMPAS PFT DLCO Hb [...] VC Pre-BD Z-Score -0.99 COMPAS PFT Narrative COMPAS PFT - 05/29/2021 1:39 PM [...] Normal resting and ambulatory oximetry. Procedure Note Pauline, Mj Briscoe MD - 05/30/2021 FINDINGS: FEV1, [...] fibrosis documented in this encounter Care Teams Safety Intern Relationship Specialty Start Date End Date Uyen Gerard MD [address] [place] [address] PCP - General 07/01/13 documented as of this encounter
--- OUTSIDE RECORDS SUMMARY | 2024-04-26 02:20 | XMS_ITS | Encounter Summary ---
Author Organization [facility] [place] [address] Care Team Providers Care Signalling And Communications Engineer Name Role Phone Uyen Gerard MD Primary Care Provider [phone] Encounter Details Date Type Department Care Team (Late st Contact Info) Description 02/15/2021 Telephone [place] [phone] Tami Hunter Social History Tobacco Use Types [...] 4:30 PM EDT Office [place] [phone] Carmelina Donaldson MD [facility] [place] [address] 05/31/2024 1:00 PM EDT Appointment [place] [phone] documented as of this encounter Visit Diagnoses Not on filedocumented in this encounter Care Teams Signalling And Communications Engineer Relationship Specialty Start Date End Date Uyen Gerard MD [address] [place] [address] PCP - General 07/01/13 documented as of this encounter
--- OUTSIDE RECORDS SUMMARY | 2024-04-26 02:20 | XMS_ITS | Encounter Summary ---
Author Organization [facility] [place] [address] Care Team Providers Care Precision Devices Inspector/Tester Name Role Phone Uyen Gerard MD Primary Care Provider [phone] Encounter Details Date Type Department Care Team (Late st Contact Info) Description 01/15/2021 [place] [phone] Tami Hunter Social History Tobacco Use Types [...] 4:30 PM EDT [place] [phone] Carmelina Donaldson MD [facility] [place] [address] 05/31/2024 1:00 PM EDT [place] [phone] documented as of this encounter Visit Diagnoses Not on filedocumented in this encounter Care Teams Precision Devices Inspector/Tester Relationship Specialty Start Date End Date Uyen Gerard MD [address] [place] [address] PCP - General 07/01/13 documented as of this encounter
--- OUTSIDE RECORDS SUMMARY | 2024-04-26 02:20 | XMS_ITS | Encounter Summary ---
Author Organization [facility] Address [facility] [place] [address] Care Team Providers Care Javascript Ui Developer Name Role Phone Uyen Gerard MD Primary Care Provider Encounter Details Date Type Department Care Team (Late Contact Info) Description 11/06/2013 Notes Only Pulmonology at [address] [phone] Ming Carter MD [facility] AT [address] [address] Social History Tobacco Use Types Packs/Day Years [...] as of this encounter Progress Notes * Ming Carter MD - 11/06/2013 10:35 PM EST Echocardiogram [facility] 08-03-13 Normal biventricular function, normal pulmonary pressures. Aortic sclerosis but no stenosis. documented in this encounter Plan of Treatment Upcoming Encounters Date Type Department Care Team (Late Contact Info) Description 05/18/2024 4:30 PM EDT [place] [address] Carmelina Donaldson MD [facility] [place] [address] 05/31/2024 1:00 PM EDT [place]ointment [place] [address] documented as of this encounter Visit Diagnoses Not on filedocumented in this encounter Care Teams Javascript Ui Developer Relationship Specialty Start Date End Date Uyen Gerard MD [facility] [address] [address] PCP - General 07/01/13 documented as of this encounter
--- OUTSIDE RECORDS SUMMARY | 2024-04-26 02:20 | XMS_ITS | Encounter Summary ---
Author Organization [facility] [place] [address] Care Team Providers Care Icing And Glaze Maker Name Role Phone Uyen Gerard MD Primary Care Provider [phone] Reason for Visit * Reason Onset Date Comments Medication Refill 12/16/2021 Encounter Details Date Type Department Care Team (Late st Contact Info) Description 12/16/2021 Refill Nephrology [place] [address] Manuel Ricks MD [facility] [place] [address] Essential hypertension Social History Tobacco Use Types [...] 4:30 PM EDT Office Visit [place] [phone] Carmelina Donaldson MD [facility] [place] [address] 05/31/2024 1:00 PM EDT Appointment [place] [phone] documented as of this encounter Visit Diagnoses Diagnosis Essential hypertension Unspecified essential hypertension documented in this encounter Care Teams Icing And Glaze Maker Relationship Specialty Start Date End Date Uyen Gerard MD [address] [place] [address] [address] [place] [address] PCP - General 07/01/13 documented as of this encounter
--- OUTSIDE RECORDS SUMMARY | 2024-04-26 02:20 | XMS_ITS | Encounter Summary ---
Author Organization [facility] [place] [address] Care Team Providers Care Radiation Oncology Manager Name Role Phone Uyen Gerard MD Primary Care Provider [phone] Encounter Details Date Type Department Care Team (Late st Contact Info) Description 07/01/2013 11:30 AM EDT Office Visit CAT Scan at [address] [address] Social History Tobacco Use Types [...] 4:30 PM EDT [place] [address] Carmelina Donaldson MD [facility] [place] [address] 05/31/2024 1:00 PM EDT [place] [address] documented as of this encounter Procedures Procedure Name Priority Date/Time Associated Diagnosis Comments CT CHEST AND ABDOMEN WO CONTRAST Routine 07/01/2013 10:49 AM EDT documented in this encounter Results * CT chest & abdomen WO contrast (07/01/2013 10:49 AM EDT) Anatomical Region Laterality Modality Chest, Abdomen Computed Tomogra phy 07/01/2013 10:4 9 AM EDT Narrative 07/01/2013 12:[address] Chest / Abdomen ??Without Contrast Clinical History RENAL CELL CANCER Comparison Comparison is made to the chest abdomen and pelvis CT studies of April 25, 2011 as well as the chest CT study of August 25, 2011. Technique 1) ??Chest CT: ??Axial multidetector helical images were obtained from the thoracic inlet through the hemidiaphragms without contrast at the request of Dr. Sorenson And were reviewed in standard windows as well as sagittal, axial and coronal planes 2) ??Abdominal CT: ??Axial multidetector helical images were obtained from the hemidiaphragms to the iliac crests following oral contrast material. ??No intravenous contrast material was utilized at the request of Dr. Sorenson. ??The study was reviewed in standard windows as well as sagittal, axial coronal planes. Findings ? 1. Chest CT scan: ??Again noted are subpleural interstitial changes with evidence of traction bronchiectasis which is more prominent in the upper lobes than the lower lobes although present diffusely. ??There is no evidence of pulmonary parenchymal nodule of significance. ??The heart and mediastinal contours are unremarkable and there is no evidence of adenopathy or pulmonary parenchymal nodule. ??There is a marked thoracic scoliosis with associated secondary degenerative change. ? 2. Abdominal CT scan: ??The liver, biliary ducts, pancreas and spleen are unremarkable. ??There are multiple calcified gallstones present within the gallbladder. ??There has been a prior right nephrectomy with evidence of compensatory hypertrophy of the left kidney. The visualized bowel is normal. ?? Vascular calcification and degenerative changes are present in the lumbar spine. ?? Impression ? 1. No evidence of metastatic disease. ? 2. Cholelithiasis without change. ? 3. Postoperative changes, status post right nephrectomy. ? 4. Scoliosis and secondary degenerative changes in the spine. ? 5. Evidence of interstitial lung disease as described, stable over the interval. Procedure Note Bismark Marx MD - 07/01/[address] Chest / Abdomen Without Contrast Clinical History RENAL CELL CANCER Comparison Comparison is made to the chest abdomen and pelvis CT studies of 2010 as well as the chest CT study of August 25, 2011. Technique 1) Chest CT: Axial multidetector helical images were obtained from the thoracic inlet through the hemidiaphragms without contrast at the requestof Dr. Sorenson And were reviewed in standard windows as well as sagittal, axialand coronal planes 2) Abdominal CT: Axial multidetector helical images were obtained fromthe hemidiaphragms to the iliac crests following oral contrast material. No intravenous contrast material was utilized at the request of Dr. Sorenson. The study was reviewed in standard windows as well as sagittal, axial coronal planes. Findings 1. Chest CT scan: Again noted are subpleural interstitial changeswith evidence of traction bronchiectasis which is more prominent in the upperlobes than the lower lobes although present diffusely. There is no evidence of pulmonary parenchymal nodule of significance. The heart and mediastinal contours are unremarkable and there is no evidence of adenopathy orpulmonary parenchymal nodule. There is a marked thoracic scoliosis with associated secondary degenerative change. 2. Abdominal CT scan: The liver, biliary ducts, pancreas and spleenare unremarkable. There are multiple calcified gallstones present within the gallbladder. There has been a prior right nephrectomy with evidence of compensatory hypertrophy of the left kidney. The visualized bowel isnormal. Vascular calcification and degenerative changes are present in the lumbar spine. Impression 1. No evidence of metastatic disease. 2. Cholelithiasis without change. 3. Postoperative changes, status post right nephrectomy. 4. Scoliosis and secondary degenerative changes in the spine. 5. Evidence of interstitial lung disease as described, stable overthe interval. Mirta Sorenson MD IMG CT ORDERABLES documented in this encounter Visit Diagnoses Not on filedocumented in this encounter Care Teams Radiation Oncology Manager Relationship Specialty Start Date End Date Uyen Gerard MD [address] [place] [address] PCP - General 07/01/13 documented as of this encounter
--- OUTSIDE RECORDS SUMMARY | 2024-04-26 02:20 | XMS_ITS | Encounter Summary ---
[place] [address] Care Team Providers Care Flower Grower Name Role Phone Uyen Gerard MD Primary Care Provider [phone] Reason for Referral * Diagnostic Test (Routine) - Closed Specialty Diagnoses / Procedures Referred By Contac t Referred To Contact Radiology Diagnoses Bronchiectasis without complication Procedures CT Chest wo Contrast (Generic) Jack Martinez MD [facility] [place] [address] [facility] [place] [address] Referral ID Status Reason Start Date Expiration Date V isits Requested Visits Authorized [id number] Closed Specialty Service Requested 01/07/2021 07/10/2022 1 1 Encounter Details Date Type Department Care Team (Late st Contact Info) Description 01/07/2021 [place] [address] Jack Martinez MD [facility] [place] [address] Bronchiectasis without complication (Primary Dx) Social History [...] EDT [place] [phone] Carmelina Donaldson MD [facility] [place] [address] 05/31/2024 1:00 PM EDT [place] [phone] documented as of this encounter Results * [...] who have questions please contact the health rn transitional care that requested your imaging first. ? Narrative 05/08/2021 12:44 PM EDT EXAMINATION: CT [...] without complication- Primary Bronchiectasis without acute exacerbation Bronchiectasis without complication Bronchiectasis without acute exacerbation documented in this encounter Care Teams Flower Grower Relationship Specialty Start Date End Date Uyen Gerard MD [address] [place] [address] PCP - General 07/01/13 documented as of this encounter
--- OUTSIDE RECORDS SUMMARY | 2024-04-26 02:20 | XMS_ITS | Encounter Summary ---
Author Organization [facility] [place] [address] Care Team Providers Care Internet Marketing Assistant Name Role Phone Uyen Zamora MD Primary Care Provider [phone] Reason for Visit * Reason Comments COPD Encounter Details Date Type Department Care Team ([facility] st Contact Info) Description 03/31/2014 2:50 PM EDT Office Visit Pulmonology at [address] [address] Ming Carter MD [facility] AT [address] [address] COPD, severe (Primary Dx) Social History Tobacco Use Types [...] * Patient Instructions* Ming Carter MD - 03/31/2014 4:00 PM EDT I [...] questions or symptoms, please call my office [phone]. documented in this encounter Progress Notes * Ming Carter MD - 03/31/2014 3:41 PM [...] on ice and did not go to [place]. Required a steel plate and a screw. [...] mouth 3 times daily as needed. ??? 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 Physical Exam: Body mass index is 22.80 [...] 29 07/01/2013926 ALT 22 07/01/2013926 BILITOT 0.4 07/01/2013 0927 Lab Results Component Value Date SEDRATE 16 04/24/2011 Lab Results Component Value Date WBC 8.0 07/01/2013 HGB 13.9 07/01/2013 HCT 42.3 07/01/2013 MCV 90.0 07/01/2013 Echocardiogram [facility] 08-03-13 Normal biventricular function, normal pulmonary [...] questions or symptoms, please call my office [phone]. CC: UYEN ZAMORA MD Dear Dr. Zamora, [...] this, which interfered with her trip to [place], which she was not able to enjoy. [...] 4:30 PM EDT Office [place] [phone] Carmelina Donaldson MD [facility] [address] 05/31/2024 1:00 PM EDT [place]ointment [place] [address] documented as of this encounter Visit Diagnoses Diagnosis COPD, severe- Primary Chronic airway obstruction, not elsewhere classified documented in this encounter Care Teams Internet Marketing Assistant Relationship Specialty Start Date End Date Uyen Zamora MD [address] [place] [address] PCP - General 07/01/13 documented as of this encounter
--- OUTSIDE RECORDS SUMMARY | 2024-04-26 02:21 | XMS_ITS | Encounter Summary ---
Author Organization [facility] Address [address] [place] [address] Care Team Providers Care Egyptologist Name Role Phone Uyen Gerard MD Primary Care Provider Yazan Hawk MD Unavailable [phone] Reason for Referral * Cardiology (Routine/Next Available) - New Request Specialty Diagnoses / Procedures Referred By Contac t Referred To Contact Diagnoses Paroxysmal atrial fibrillation ([facility]) Procedures EKG 12-LEAD Yazan Hawk MD [address] [facility] [place] [address] Referral ID Status Reason Start Date Expiration Date V isits Requested Visits Authorized [id number] New Request 01/20/2023 1 1 Reason for Visit * Reason Comments Atrial Fibrillation * Cardiology (Routine/Next Available) - New Request Specialty Diagnoses / Procedures [facility] Referred To Contact Diagnoses Paroxysmal atrial fibrillation ([facility]) Procedures EKG 12-LEAD Yazan Hawk MD [address] [facility] [place] [address] Referral ID Status Reason Start Date Expiration Date V isits Requested Visits Authorized [id number] New Request 01/20/2023 1 1 Encounter Details Date Type Department Care Team (Latest Contact Info) Description 01/29/2023 15:00 EDT Office Visit [facility] [address] [place] [address] Yazan Hawk MD [address] [facility] [address] [place] [address] Paroxysmal atrial fibrillation (HCC-CMS) (Primary Dx); Essential hypertension; Mixed hyperlipidemia; 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; Current use of mcfp anticoagulation Social History Tobacco Use Types Packs/Day Years Used Date Smoking Tobacco: Never Smokeless Tobacco: Never Interpersonal Safety Answer Date Record ed Physically Hurt Never 04/09/2020 Verbally Threaten Not on file 04/09/2020 Sex and Gender Information Value Date Recorded Sex Assigned at Female 02/02/2024 16:21 EDT Gender Identity Female 08/08/2019 16:13 EST Sexual Orientation Not on file documented as of this encounter Last Filed Vital Signs Vital Sign Reading Time Taken Comments Blood Pressure 136/62 01/29/2023 1454 EDT Pulse 70 01/29/2023 1454 EDT Temperature - - Respiratory Rate - - Oxygen Saturation - - Inhaled Oxygen Concentration - - Weight 59.9 kg (132 lb) 01/29/2023 1454 EDT Height 160 cm (5' 3) 01/29/2023 1454 EDT Body Mass Index 23.38 01/29/2023 1454 EDT documented in this encounter Functional Status Functional Status Response Date of Assess ment Because of a physical, menta l, or emotional condition, does this person have difficulty doing errands alone such as visiting a doctor's office or shopping? No 06/08/2020 Cognitive Status Response Date of Assessm ent Because of a physical, menta l, or emotional condition, does this person have serious difficulty concentrating, remembering, or making decisions? No 06/08/2020 documented as of this encounter Progress Notes * Yazan Hawk MD - 01/29/2023 1500 EDT [facility] [place] Cardiology Clinic Note Subjective: Chief Complaint(s): Atrial Fibrillation HPI: 88-year-old woman with paroxysmal atrial fibrillation, hypertension, hyperlipidemia, COPD, migraines, history of renal cancer status post right nephrectomy 2004. First episode of AF with RVR 08/2016, received ditiazem with spont. conversion to sinus rhythm during ER evaluation. Started on metoprolol and apixaban. Was hospitalized 11/2018 in [place], with fluttering in her chest and lightheadedness. Extensive work-up included head CT and MRI, echocardiogram, EKG, chest x-ray, renal artery Doppler, cardiac catheterization, sleep study and extensive lab testing. Several heart medications were changed/newly started (metoprolol 200 mg, losartan 100 mg, flecainide 50 mg, amlodipine 5 mg). By her report, cardiac cath did not show significant disease. Returns to the office with her spouse. She reports doing well overall, my heart is fine. She reports that she had a COVID infection in last July, which was uncomplicated. They then went on a cruise in October 2022 where she had a COVID-negative severe upper respiratory tract infection. She reports irregular rhythm, with occasional brief flutters. She brings in a detailed blood pressure and heart rate record which shows reasonable blood pressurecontrol with SBP's in the 110-130s. With heart rates mostly in the 60s and 70s. She denies recent exertional chest pain, shortness of breath with ADLs, recent syncope, orthopnea, PND, edema, bleeding. She has chronic constipation issues. She has had hypertension since her 50s, she denies a history of CA, diabetes, TIA/CVA, cardiomyopathy, peripheral vascular disease, thyroid disease. She gave up on her CPAP machine, as she did not find a way to make the system comfortable. She and her received Covid boosters done and we have asked them to inspect this mL: And flushots without problems. Data review: Labs 02/15/2019: Creatinine 1.06, estimated GFR 50. Sleep study 12/2018, [facility]: Mild obstructive sleep apnea, not using CPAP. Event monitor ([employer] SEEQ) 10/07/16-11/08/16: Baseline sinus rhythm, daily heart rate average 70-90/min, heart rate spectrum 60-150/, 4 days with documented AF episodes, minutes to a few hours. Echocardiogram, [facility], 09/01/2016: Normal LV size and function, mild LVH, LVEF 65-70%, normal regional wall motion. MAC, moderate focal calcification of the posterior mitral leaflet, mild MR, mildly dilated LA, RV size upper normal limits, low normal RV systolic function, mildly dilated RA, moderateTR, mildly increased PA pressure, 42 mmHg, trivial pericardial effusion. Holter EKG, [facility], 06/2016: Sinus rhythm, rare single PAC, 3 bursts SVT, longest 9 beats, 172/min, no AF. Rare single PVC, no VT. No bradycardia. No symptoms. Average 1 minute heart rate 88/min, [id number]/min. Chest x-ray, [facility], 08/31/2015: Heart at the upper limits of normal, lungs generally clear, except for some faint reticulonodular densities seen in the right midlung and apex laterally, consistent with radiodensities identified on CT. Chest CT, [facility], 08/30/2016: Market biconvex thoracolumbar scoliosis, [...] liver, spleen and left kidney are unremarkable in appearance. Current Outpatient Medications Medication Sig Dispense Refill [...] % ophthalmic solution ??? calcium carbonate-vitamin D3 600 mg-20 mcg (800 unit) tablet 1 tab(s) orally 2 times a day ??? cholecalciferol, Vitamin D3, 25 mcg (1,000 unit) tablet Take 1,000 Units by mouth daily. ??? Cod Liver Oil capsule 1 cap(s) orally once a day ??? Docosahexanoic Acid-Eicosapent 120-180 mg capsule Take 1,000 mg by mouth daily. (Patient not taking: Reported on 01/29/2023) ??? docusate sodium (COLACE) 100 mg capsule Take 100 mg by mouth daily. ??? flecainide (TAMBOCOR) 50 mg tablet TAKE 1 TABLET TWICE A DAY 180 Tablet 3 ??? exrgetnhdcm-ubiduroom-moqskpyy (TRELEGY ELLIPTA) 100-62.5-25 mcg 1 puff inhaled once a day ??? latanoprost (XALATAN) 0.005 % ophthalmic solution ??? levalbuterol (XOPENEX HFA) 45 mcg/actuation inhaler Inhale 1 Puff as directed every 4 to 6 hours as needed. ??? levalbuterol (XOPENEX) 0.63 mg/3 mL nebulization 3 mL by nebulizer 3 times a day 15 mL 0 ??? losartan (COZAAR) 50 mg tablet 2 tab orally Daily ??? metoprolol SUCCinate (TOPROL-XL) 50 mg tablet CORRECTION: Take 1.5 tabs AM, 1 tab PM.. 225 Tablet 3 ??? spironolactone (ALDACTONE) 25 mg tablet Take 25 mg by mouth daily. ??? SUMAtriptan (IMITREX) 50 mg tablet Take 50 mg by mouth. No current facility-administered medications for this visit. Past Medical History Paroxysmal atrial fibrillation, dx 08/2016, [id number] score =4, Started on Flecainide in [place], 11/2018 Cardiac cath, [place], [place] 11/2018: No significant coronary disease Hypertension Hyperlipidemia COPD/emphysema History of renal cancer, status post right nephrectomy 2005 Migraines Family History Mother: 94 yrs, atrial fibrillation Paternal Grand Mother: , angina, from [place] in her 70ies Father passed in 1984. Social History General: no Tobacco use. Second Hand Smoke: yes, lots of 2nd hand smoke exposure, some asbestos exposure. Alcohol: yes, 1 drink daily, wine. Caffeine: yes, coffee, 3 daily. no Special diet, low sodium at home regularly. Living situation: lives with . Marital/Partner Status: . Suspicion of abuse Suspicion of abuse No, Date Assessed 01/06/2017. Domestic violence screen Do you feel safe at home? Yes, Date: 07/07/2017. Learning Barriers Assessed On: 01/06/2017, Does the patient have barriersto learning? No. 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 Allergies codeine: stomach upset: Side Effects Review of Systems GENERAL: - A 10-system ROS was performed. Pertinent items as above. Otherwise negative.. Objective: Examination: Vitals: BP 136/62 (BP Cuff Location: Right arm, BP Patient Position: Sitting, BP Cuff Sizes: Adult, regular) Pulse 70 Ht 160 cm (63) Wt 59.9 kg (132 lb) BMI 23.38 kg/m?? Body mass index is 23.38 kg/m??. Physical Exam General Exam: GENERAL APPEARANCE: [...] Sinus rhythm with first-degree AV delay, 60/min, OH 226 ms, QRS 102 ms, QT 412 ms,incomplete right bundle branch block and L anterior fascicular block. EKG, 06/08/2020: Sinus rhythm with first-degree AV delay and PACs. 71/min, OH 232 ms, QRS 92 ms, QT 398 ms, QTC 432 ms, left anterior fascicular block. EKG 08/12/2021: Sinus bradycardia with sinus arrhythmia and first-degree AV delay, 59/min, OH 244 ms, QRS 88 ms, QT 404 ms, left anterior fascicular block. EKG 02/24/2022: Sinus rhythm with first-degree AV delay, 78/min, OH 248 ms, QRS 76 ms, QT 392 ms, QTC 446 ms, left anterior fascicular block. Labs, [facility], 02/14/2022: Glucose 94, BUN 29, creatinine 0.98, sodium 127, potassium 4.8, chloride 89,CO2 30, anion gap 8, calcium 9.6, GFR 53, urine sodium 41 EKG 01/29/2023: Sinus rhythm with first-degree AV block, 70/min, OH 258 ms, QRS 86 ms, QT 398 ms, QTc 429 ms, possible left atrial enlargement, left anterior fascicular block, nonspecific T wave abnormality. Assessment & Plan: 1. Paroxysmal atrial fibrillation (HCC-CMS) ([facility]) EKG 12-LEAD EKG 12-LEAD 2. Essential hypertension 3. Mixed hyperlipidemia 4. long-term current use of antiarrhythmic medical therapy 5. Current use of mcfp anticoagulation 88-year-old woman with paroxysmal atrial fibrillation, hypertension, hyperlipidemia, COPD, migraines, history of renal cancer status post right nephrectomy 2004. AF was diagnosed in 08/2016, terminated spontaneously. Her XUK3QY3-LVXf score is 4, anticoagulation with apixaban/Eliquis is appropriate. Symptomatic recurrence of AF in [place] 11/2018. Cardiac cath was negative, started on flecainide for suppression of PAF. EKG today again with sinus rhythm and acceptable, stable QRS width. Her blood pressure log shows again acceptable measurements in recent months with Metoprolol 75&50mg/d. Continue current meds. We discussed the risks of untreated sleep apnea for increased probability of AF relapse, she is currently not motivated to retry CPAP. We then discussed in detail the pros and cons of Eliquis dose adaptation. With her weight around 60kg, she is on the cusp of switching to reduced dose Eliquis which would be 2.5 mg twice daily. As she currently has no bleeding issues whatsoever, she opted to continue the current 5 mg twice daily dosing. I advised her to keep us updated on her weight, was a switch to the lower dose should she lose more weight in the future. I spent a total of 30 minutes on the date of this encounter meeting with the patient and reviewing documentation/coordinating care as described in the above note. This was separate from any procedures performed at the time of the visit. Yazan Hawk MD documented in this encounter Plan of Treatment Upcoming Encounters Date Type Department Care Team (Late st Contact Info) Description 02/07/2025 11:15 EDT Office Visit [facility] [address] [place] [address] Yazan Hawk MD [address] [place], [place] [address] [address] [place] [address] documented as of this encounter Procedures Procedure Name Priority Date/Time Associated Diagnosis Comments ECG REPORT - SCANNED 01/29/2023 16:06 EDT EKG 12-LEAD Routine 01/29/2023 15:04 EDT Paroxysmal atrial fibrillation (HCC-CMS) documented in this encounter Results * ECG REPORT - SCANNED (01/29/2023 16:06 EDT) 01/29/2023 16:0 6 EDT Scan 2 Legislators PROCEDURE/MINOR MARAH GICAL ORDERABLES * EKG 12-LEAD (01/29/2023 15:04 EDT) 01/29/2023 15:0 4 EDT Narrative [facility] - 01/29/2023 16:01 EDT ? CVC ? Test Date: ?2023-01-29 Pat Name: ? TALITA VELASCO ?Department: ? Room: ? Gender: ? Female ? 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 ES : ?1935 ? Requested By: ROSIBEL SPRINGER Order Number: [id number] ? Reading MD: ?? AGAPITO XAVIER MD ? Measurements Intervals ?[place] ? Rate: ? 70 ? P: ?57 OH: ? 258 ?QRS: ?-46 QRSD: ? 86 ? T: ?42 QT: ? 398 ? QTc: ?429 ? Interpretive Statements Sinus rhythm with 1st degree AV block Left anterior fascicular block Compared to ECG 02/24/2022 09:18:42 No significant changes I reviewed the tracing and have either agreed or edited the findings in this report. Electronically Signed On 01-29-2023 16:01:10 EDT by AGAPITO XAVIER MD. 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 Electronically Signed On 01-29-2023 16:01:10 EDT by AGAPITO EL. 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 Therapy completed 02/09/2022 01/29/2023 documented as of this encounter Care Teams Egyptologist Relationship Specialty Start Date End Date Uyen Gerard MD [address] [place] [phone] PCP - General 02/18/18 Yazan Hawk MD [address] [place] [address] [address] [place] [phone] Cardiovascular Disease 08/12/21 documented as of this encounter
--- OUTSIDE RECORDS SUMMARY | 2024-04-26 02:21 | XMS_ITS | Encounter Summary ---
Author Organization [facility] Address [address] [place] [address] Care Team Providers Care Condenser Tube Tender Name Role Phone Uyen Gerard MD Primary Care Provider [phone] Reason for Visit * Reason Comments Atrial Fibrillation Encounter Details Date Type Department Care Team (Late st Contact Info) Description 06/08/2020 10:45 EDT Office Visit [facility] Clinic [address] [place], [place] [id number] Yazan Hawk MD [address] [facility] [address] [place] [address] Paroxysmal atrial fibrillation (HCC-CMS) (Primary Dx); Essential hypertension; Mixed hyperlipidemia; Venous insufficiency; Sleep apnea in adult; Chronic obstructive pulmonary disease, unspecified COPD type (HCC-CMS) Social History Tobacco Use Types Packs/Day Years [...] No 06/08/2020 documented as of this encounter Ordered Prescriptions Prescription Sig Dispensed Refills Start Date End Da te metoprolol SUCCinate (TOPROL-XL) 50 mg tablet Take 1 Tab by mouth 2 times daily. 180 Tab 3 06/24/2020 02/08/2021 documented in this encounter Progress Notes * Yazan Hawk MD - 06/08/2020 1045 EDT [facility] Cardiology Department Subjective: Chief Complaint(s): Atrial Fibrillation HPI: 85-year-old woman with paroxysmal atrial fibrillation, hypertension, hyperlipidemia, COPD, migraines, history of renal cancer status post right nephrectomy 2004. First episode of AF with RVR 08/2016, received ditiazem with spont. conversion to sinus rhythm during ER evaluation. Started on metoprolol and apixaban. Was hospitalized 11/2018 in [place], with fluttering in her chest and lightheadedness. [...] great, with her fingertips often easily getting cold & numb, for example when driving. She also gets more tired more easily, has to sit down for amoment, then tiredness goes away. She denies recent chest pain, shortness of breath with ADLs, recent syncope, orthopnea, PND, edema,bleeding, digestive troubles. She has had hypertension since her 50s, she denies a history of ID, diabetes, TIA/CVA, cardiomyopathy, peripheral vascular disease, thyroid disease. Data review: Labs 02/15/2019: Creatinine 1.06, estimated GFR 50. Sleep study 12/2018, [facility]: Mild obstructive sleep apnea, not using CPAP. Event monitor ([employer] SEEQ) 10/07/16-11/08/16: Baseline sinus rhythm, daily heart rate average 70-90/min, heart rate spectrum 60-150/, 4 days with documented AF episodes, minutes to a few hours. Echocardiogram, [facility], 09/01/2016: Normal LV size and function, mild LVH, LVEF 65-70%, normal regional wall motion. MAC, moderate focal calcification of the posterior mitral leaflet, mild MR, mildly dilated LA, RV size upper normal limits, low normal RV systolic function, mildly dilated RA, moderateTR, mildly increased PA pressure, 42 mmHg, trivial pericardial effusion. Holter EKG, [facility], 06/2016: Sinus rhythm, rare single PAC, 3 bursts SVT, longest 9 beats, 172/min, no AF. Rare single PVC, no VT. No bradycardia. No symptoms. Average 1 minute heart rate 88/min, mpect04-252/min. Chest x-ray, [facility], 08/31/2015: Heart at the upper limits of normal, lungs generally clear, except for some faint reticulonodular densities seen in the right midlung and apex laterally, consistent with radiodensities identified on CT. Chest CT, [facility], 08/30/2016: Market biconvex thoracolumbar scoliosis, scattered [...] 2 times daily. 180 Tab 1 ??? xrhjliqryye-uxsesujmg-pblrkbhh (TRELEGY ELLIPTA) 100-62.5-25 mcg 1 puff inhaled [...] Medical History Paroxysmal atrial fibrillation, dx 08/2016, [id number] score =4, Started on Flecainide in [place], 11/2018 Cardiac cath, [place], [place] 11/2018: No significant coronary disease Hypertension Hyperlipidemia COPD/emphysema History of renal cancer, status post right nephrectomy 2005 Migraines Family History Mother: 94 yrs, atrial fibrillation Paternal Grand Mother: , angina, from [place] in her 70ies Father passed in 1984. [...] learning? No. 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 Allergies codeine: stomach upset: Side Effects Review [...] with first-degree AV delay and PACs. 71/min, [place] 232 ms, QRS 92 ms, QT 398 [...] was diagnosed in 08/2016, terminated spontaneously. Her KUT7QY8-XTTh score is 4, anticoagulation with apixaban/Eliquis is appropriate. Symptomatic recurrence of AF in [place] 11/2018. Cardiac cath was negative, started on flecainide for suppression of PAF. EKG today again with sinus rhythm and acceptable QRS width. Her blood pressureshowed acceptable measurements in recent months. However, she occasionally feels fatigued which might be related to iatrogenic hypotension, will try to reduce Metoprolol. Total cmhu-gj-yzwq time: 25 minutes, >50% spent counseling on [...] Info) Description 02/07/2025 11:15 EDT Office Visit [facility] Clinic [address] [place], [place] [phone] Yazan Hawk MD [address] [facility] [address] [place] [address] documented as of this encounter Procedures Procedure Name Priority Date/Time Associated Diagnosis Comments EKG 12-LEAD 06/08/2020 10:28 EDT documented in this encounter Results * EKG 12-LEAD (06/08/2020 10:28 EDT) 06/08/2020 10:2 8 EDT Narrative [facility] - 06/08/2020 10:28 EDT ? [facility] Cardiology ? Test Date: ?2020-06-08 10:28:42 Pat Name: ? TALITA VELASCO ?Department: ?Room: ? Gender: ? F ?Magistrate Judge: ?? ES : ?1935 ? Requested By: Order Number: ?Reading MD: ?? Ryne Machuca MD ? Measurements Intervals ?[place] ? Rate: ? 71 ? P: ?73 [place]: ? 232 ?QRS: ?-46 QRSD: ? 92 ? T: ?47 QT: ? 398 ? QTc: ?432 ? Interpretive Statements Sinus rhythm with 1st degree AV block with premature supraventricular complexes and with occasional premature ventricular com Left anterior fascicular block Abnormal ECG Compared to ECG 2019 09:55:17 Atrial premature complex(es) now present Ventricular premature complex(es) now present Left anterior fascicular block now present Electronically Signed On 06-08-2020 16:56:54 EDT by Ryne Machuca MD [email or web address] Procedure Note Ryne Machuca MD - 06/08/2020 [facility] Cardiology Test Date: 2020-06-08 10:28:42 Pat Name: TALITA VELASCO Department: Room: Gender: F Magistrate Judge: ES : 1935 Requested By: Order Number: Reading MD: Ryne Machuca MD Measurements Intervals [place] Rate: 71 P: 73 AK: 232 QRS: -46 QRSD: 92 T: 47 QT: 398 QTc: 432 Interpretive Statements Sinus rhythm with 1st degree AV block with premature supraventricular complexes and with occasional premature ventricular com Left anterior fascicular block Abnormal ECG Compared to ECG 2019 09:55:17 Atrial premature complex(es) now present Ventricular premature complex(es) now present Left anterior fascicular block now present Electronically Signed On 06-08-2020 16:56:54 EDT by Ryne Machuca MD [email or web address] Yazan Hawk MD CARDIAC ECG ORD ERABLES [facility] [address] [place] [address] documented in this encounter Visit Diagnoses Diagnosis Paroxysmal atrial fibrillation (HCC-CMS)- Primary Atrial fibrillation Essential hypertension Unspecified essential hypertension Mixed hyperlipidemia Venous insufficiency Unspecified venous (peripheral) insufficiency Sleep apnea in adult Chronic obstructive pulmonary disease, unspecified COPD type (HCC-CMS) documented in this encounter Discontinued Medications Medication Sig Discontinue Reason Start Date End Da te metoprolol succinate 100 mg capsule,sprinkle,ER 24hr 1.5 tabs orally 100mg AM, 50 mg PM Alternate therapy 06/08/2020 documented as of this encounter Care Teams Condenser Tube Tender Relationship Specialty Start Date End Date Uyen Gerard MD [address] [id number] PCP - General 02/18/18 documented as of this encounter
--- OUTSIDE RECORDS SUMMARY | 2024-04-26 02:21 | XMS_ITS | Encounter Summary ---
Author Organization [facility] Address [address] [place] [address] Care Team Providers Care Community Assistant Name Role Phone Uyen Gerard MD Primary Care Provider [phone] Yazan Hawk MD Unavailable [phone] Reason for Visit * Reason Comments Cough cold symptoms,raisin g phlegm Encounter Details Date Type Department Care Team (Late st Contact Info) Description 02/09/2022 13:00 EDT Office Visit [facility] [address], [place] [id number] Geraldine Welch PA-C [address] [facility] [address] [place], [place] [id number] Cough in adult (Primary Dx) Social History Tobacco Use Types [...] No 06/08/2020 documented as of this encounter Patient Instructions * Patient Instructions* Geraldine Welch PA-C - 02/09/2022 13:00 EDT Your [...] Dispensed Refills Start Date End Da te levalbuterol (XOPENEX) 0.63 mg/3 mL nebulizationIndications :Cough in adult 3 mL by nebulizer 3 times a day 15 mL 02/09/2022 predniSONE (DELTASONE) 20 mg tablet Take 2 Tablets by mouth daily. 30 Tablet 02/09/2022 01/29/2023 doxycycline (VIBRA-TABS) 100 mg tablet Take 1 Tablet by mouth 2 times daily for 5 days. 10 Tablet 02/09/2022 02/14/2022 documented in this encounter Progress Notes * Marie Seaman LPN - 02/09/2022 1300 EDT CC/HPI: Covid [...] booster Approximate date of last dose? 07/03/21 perpt *may be determined by RN or in discussion with available provider (MANAGEMENT SERVICES TECHNICIAN's and CCA's can defer to Charge Nurse to complete triage when appropriate) PCP: Uyen Gerard * Geraldine Welch PA-C - 02/09/2022 1300 EDT [facility] Express Care Chief Complaint(s): Chief Complaint Patient presents with ??? Cough cold symptoms,raising phlegm Assessment & Plan: Jerri was seen today for cough. Diagnoses and all orders for this visit: Cough in adult - XR CHEST 2 VIEWS - COVID-19 TESTING - levalbuterol (XOPENEX) 0.63 mg/3 mL nebulization; 3 mL by nebulizer 3 times a day - COVID-19 [facility] (TESTING ONLY) Other orders - doxycycline (VIBRA-TABS) 100 mg tablet; Take 1 Tablet by mouth 2 times daily for 5 days. - predniSONE (DELTASONE) 20 mg tablet; Take 2 Tablets by mouth daily. Jerri Velasco is a 87 y.o. female with significant history of COPD who presents for evaluation ofcough with increased sputum production that began on 02/04/2022. Patient reports feeling rundown andhas rhinorrhea and dyspnea with exertion but denies fever, chills, sore throat, GI symptoms, weakness, lower extremity edema, shortness of breath at rest or orthopnea. Patient is generally well appearing, afebrile, non toxic, well hydrated, stable on exam, lung sounds are notable for wheezing throughout along with crackles appreciated in the left lower lobe. DDx include: COPD exacerbation versus pneumonia versus viral URI versus COVID infection COVID testing obtained during visit and instructed to remain home away from Others unless to seek medical attention until results return. Chest x-ray performed and my interpretation included possible small consolidation in the left lowerlobe and patient was discharged with prednisone and doxycycline to cover for possible CAP and COPD exacerbation. discussed that I will call patient to notify her of radiologist read once it's returned. Instructed to hold her calcium supplement during course [...] eval. Instructed she needs follow up with her PRIMARY CARE PROVIDER in 1 week to ensure improvement in symptoms. The independent visualization of x-ray imaging are discussed with patient. I printed material and reviewed home management and follow up in detail with patient, see patient instructions below. Patient is advised in use of [employer] to access any lab results or other pertinentvisit information. All questions are answered. Patient is [...] daughter is present for the evaluation today and notes patient does seem to be more short of breath with exertion such as going up a flight of stairs. Symptoms started on 02/04/2022 after going to [employer] 2 days prior. Patient is COVID vaccinated with 1 booster in the fall 2020. Home covid rapid [...] for ear discharge, ear pain, sinus pain and sore throat. Respiratory: Positive for cough, sputum production and shortness of breath (with exertion). Negative for hemoptysis, wheezing and stridor. Cardiovascular: Negative for [...] note may be in part documented using [employer] dictation software. Please forgive any errors, omissions or typos that may result from use of dictation. documented in this encounter Plan of Treatment Upcoming Encounters Date Type Department Care Team (Late st Contact Info) Description 02/07/2025 11:15 EDT Office Visit [facility] Cardiology Clinic [address] [place] [address] Yazan Hawk MD [address] [facility] [place] [address] documented as of this encounter Procedures Procedure Name Priority Date/Time Associated Diagnosis Comments ZZCOVID-19 [facility] (TESTING ONLY) Today 02/09/2022 16:03 EDT Cough in adult COVID-19 TESTING Routine 02/09/2022 16:0 3 EDT Cough in adult XR CHEST 2 VIEWS STAT 02/09/2022 15:0 9 EDT Cough in adult documented in this encounter Results * COVID-19 [facility] (TESTING ONLY) (02/09/2022 16:03 EDT) Swab ENTIRE NASOPHARYNX / Unknown Swab / Unknown 02/09/2022 16:03 EDT 02/09/2022 16:03 EDT Geraldine Welch PA-C MICROBIOLOGY - GENERAL ORDERABLES [facility] [address] [place] [address] * COVID-19 TESTING (02/09/2022 16:03 EDT) COVID-19 rt-PCR Result Negative Negative 02/09/2022 23:22 EDT [facility] Performing Lab Diasorin Liaison [facility] Lab 02/09/2022 23:22 EDT [facility] Swab ENTIRE NASOPHARYNX / Unknown Swab / Unknown 02/09/2022 16:03 EDT 02/09/2022 16:03 EDT Geraldine Baird Rebekah MENJIVAR MICROBIOLOGY - GENERAL ORDERABLES [facility] [address] [place] [address] * XR CHEST 2 VIEWS (02/09/2022 15:09 EDT) Anatomical Region Laterality Modality Computed Radiogr aphy 02/09/2022 15:0 5 EDT Impressions 02/09/2022 15:51 EDT Findings suggestive of COPD, pleural thickening. No lobar consolidation or CHF. THIS DOCUMENT HAS BEEN ELECTRONICALLY SIGNED BY ELIZABETH HASTINGS MD FOR ANY QUESTIONS OR CONCERNS REGARDING THIS REPORT PLEASE CALL [facility] AT [phone] Narrative 02/09/2022 15:51 EDT PROCEDURE INFORMATION: Exam: XR Chest Exam date and time: 02/09/2022 3:05 PM Age: 87 years old Clinical indication: Cough, unspecified; Chest wall pain; Additional info: Worsening cough and fatigue since 02/04/2022 with history copd TECHNIQUE: Imaging protocol: XR of the chest. Views: 2 views. COMPARISON: No relevant prior studies available. FINDINGS: Lungs: Lung volumes are increased suggestive of COPD. No significant airspace consolidation or overt CHF Pleural spaces: Minimal pleural thickening at the lung apices. Large pleural effusion, or pneumothorax is not seen Heart/Mediastinum: Heart is upper limits of normal in size. No significant mediastinal abnormality Bones/joints: Bony structures are osteopenic. There is scoliosis convex to the right. Degenerative changes are seen in the spine. There is [...] available. FINDINGS: Lungs: Lung volumes are increased suggestive of COPD. No significant airspace consolidation or overt CHF Pleural spaces: Minimal pleural thickening at the lung apices. Large pleural effusion, or pneumothorax is not seen Heart/Mediastinum: Heart is upper limits of normal in size. No significant mediastinal abnormality Bones/joints: Bony structures are osteopenic. There is scoliosis convex to the right. Degenerative changes are seen in the spine. There is no acute bony abnormality IMPRESSION Findings suggestive of COPD, pleural thickening. No lobar consolidation or CHF. THIS DOCUMENT HAS BEEN ELECTRONICALLY SIGNED BY ELIZABETH HASTINGS MD FOR ANY QUESTIONS OR CONCERNS REGARDING THIS REPORT PLEASE CALL [facility] [phone] Geraldine Welch PA-C [facility] DI[facility]NOST[facility] ORDERABLES documented in this encounter Visit Diagnoses Diagnosis Cough in adult- Primary documented in this encounter Discontinued Medications Medication Sig Discontinue Reason Start Date End Da te sumatriptan (IMITREX) 25 mg tabletIndications:UNSURE OF DOSAGE Take 25 mg by mouth as needed for Migraine. 02/09/2022 docusate sodium (COLACE CLEAR) 50 mg capsule 2 cap(s) orally once a day 02/09/2022 cholecalciferol, Vitamin D3, 2,000 unit tablet 1 tab(s) orally once a day 02/09/2022 levalbuterol (XOPENEX) 0.63 mg/3 mL nebulization 3 mL by nebulizer 3 times a day Reorder 02/09/2022 documented as of this encounter Historical Medications * This list may reflect changes made after this encounter. Medication Sig Dispensed Refills Start Date End Date Docosahexanoic Acid-Eicosapent 120-180 mg capsule Take 1,000 mg by mouth daily. brimonidine (ALPHAGAN P) 0.1 % ophthalmic solution 11/26/2021 latanoprost (XALATAN) 0.005 % ophthalmic solution 08/21/2021 levalbuterol (XOPENEX HFA) 45 mcg/actuation inhaler Inhale 1 Puff as directed every 4 to 6 hours as needed. cholecalciferol, Vitamin D3, 25 mcg (1,000 unit) tablet Take 1 Tablet by mouth daily. docusate sodium (COLACE) 100 mg capsule Take 1 Capsule by mouth daily. SUMAtriptan (IMITREX) 50 mg tablet Take 1 Tablet by mouth. added in this encounter Care Teams Community Assistant Relationship Specialty Start Date End Date Uyen Gerard MD [address] [place] [phone] PCP - General 02/18/18 Yazan Hawk MD [address] [place] [address] [phone] Cardiovascular Disease 08/12/21 documented as of this encounter
--- OUTSIDE RECORDS SUMMARY | 2024-04-26 02:21 | XMS_ITS | Encounter Summary ---
Author Organization [facility] Address [address] [place] [address] Care Team Providers Care Non Destructive Testing Specialist Name Role Phone Uyen Gerard MD Primary Care Provider [phone] Reason for Visit * Reason Onset Date Comments Medication Management 03/01/2020 Encounter Details Date Type Department Care Team (Late st Contact Info) Description 03/01/2020 Telephone [facility] [address] [place] [address] Yazan Hawk MD [address] [facility] [address] [place] [address] Medication Management Social History Tobacco Use Types Packs/Day Years Used Date Smoking Tobacco: Never Smokeless Tobacco: Never Sex and Gender Information Value Date Recorded Sex Assigned at Female 02/02/2024 16:21 EDT Gender Identity Female 08/08/2019 16:13 EST Sexual Orientation Not on file documented as of this encounter Miscellaneous Notes * Telephone Encounter - Hamzah Kim RN - 03/07/2020 1708 EDT Notes from this encounter faxed to [facility] Pain clinic as requested. * Telephone Encounter - Yazan Hawk MD - 03/07/2020 1052 EDT Stopping anticoagulation for a procedure in a patient with AF always increases the risk of a stroke. Usually that risk increase is outweighed by the benefits of the procedure (in this case pain control), but the patient and the wave soldering machine operator need to understand the trade-off. The guideline recommendation for Eliquis in a high bleeding risk procedure would be at least 48h hold prior to procedure, I usually recommend 72hrs for spinal/ neurosurgical procedures, for extra safety. Restarting depends on the procedure and on the degree of bleeding during the procedure, in this case I would recommend 48hrs, but the final decision is with the wave soldering machine operator. * Telephone Encounter - Megha Shetty RN - 03/01/2020 1449 EDT Onto , is it OK for patient to hodl Eliquis prior to injection? * Telephone Encounter - Amee Garcia - 03/01/2020 1437 EDT Pt needs to have an injection and the Pain Clinic at [facility] is looking for guidelines/orders written to be faxed to them from Dr. Hawk regarding her eliquis. They need to know if pt can stop five days prior to injection and when her restart date would be. Fax number is [phone] documented in this encounter Plan of Treatment Upcoming Encounters Date Type Department Care Team (Late st Contact Info) Description 02/07/2025 11:15 EDT Office Visit [facility] Cardiology Clinic [address] [place] [address] Yazan Hawk MD [address] [facility] [address] [place] [address] documented as of this encounter Visit Diagnoses Not on filedocumented in this encounter Care Teams Non Destructive Testing Specialist Relationship Specialty Start Date End Date Uyen Gerard MD [address] [place] [phone] PCP - General 02/18/18 documented as of this encounter
--- OUTSIDE RECORDS SUMMARY | 2024-04-26 02:21 | XMS_ITS | Encounter Summary ---
Author Organization [facility] [place] [address] Care Team Providers Care Plant Protection Guard Name Role Phone Michael Perez MD Primary Care Provider Reason for Visit * Reason Comments COPD Follow-up Encounter Details Date Type Department Care Team ([facility] Contact Info) Description 09/15/2011 10:50 AM EST Office Visit Pulmonology at [address] [phone] Ming Carter MD [facility] AT [address] (Primary Dx); COPD (chronic obstructive pulmonary disease) Social History Tobacco Use Types Packs/Day Years [...] * Patient Instructions* Ming Carter MD - 09/15/2011 11:39 AM EST No need to change your therapy at this time. documented in this encounter Progress Notes * Ming Carter MD - 09/15/2011 11:34 AM EST Follow-up Office Visit Established Patent Jerri Velasco is a 76 y.o. female returns for follow-up of COPD and abnormal chest ct. She is accompanied by her . The patient tells me that overall symptoms have been fine since last visit.Spiriva is helpful, she believes, and she has less sob and less huffing puffing. No glaucoma. Routine activity tolerance has been fine. Breathing problems do not usually interfere with activities or selection of activities. Exercise is not routinely performed. Carrying buckets [place], this made her sob, after the third [...] mouth 3 times daily as needed. ??? 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 Physical Exam: Blood pressure 126/80, pulse 68, height 160 cm (5' 3), weight 63.504 kg (140 lb), SpO2 98.00%, peak flow 275 L/min. General appearance: comfortable Good eye [...] in the office today, I reviewed her [facility] CD from 2004. This also showed a [...] discussed the possibility of her going to [place], which is approximately [address] [place] in the [facility]. Her oxygen saturation today is fine in [...] at anytime should they experience any new respiratorysymptoms (examples were discussed) or if they have any new questions or concerns. No need to change your therapy at this time. CC: MD Dr Delta MENDIOLA [place], [place] documented in this encounter Plan of Treatment Upcoming Encounters Date Type Department Care Team (Late st Contact Info) Description 05/18/2024 4:30 PM EDT [place] [phone] Carmelina Donaldson MD [facility] [place] [address] 05/31/2024 1:00 PM EDT [place]oint[place] [address] documented as of this encounter Visit Diagnoses Diagnosis Abnormal chest CT- Primary Nonspecific (abnormal) findings on radiological and other examination of other intrathoracic organs COPD (chronic obstructive pulmonary disease) Chronic airway obstruction, not elsewhere classified documented in this encounter Care Teams Plant Protection Guard Relationship Specialty Start Date End Date Michael Perez MD PCP - General 04/24/11 03/10/13 documented as of this encounter
--- OUTSIDE RECORDS SUMMARY | 2024-04-26 02:21 | XMS_ITS | Encounter Summary ---
Author Organization [facility] Address [address] [place] [address] Care Team Providers Care Tree Warden Name Role Phone Uyen Zamora MD Primary Care Provider [phone] Encounter Details Date Type Department Care Team (Late st Contact Info) Description 04/21/2018 Results Only [facility] [place] [facility] [phone] Farhan Peck [address] [place] [address] Social History Tobacco Use Types Packs/Day Years Used Date Smoking Tobacco: Never Assessed Sex and Gender Information Value Date Recorded Sex Assigned at Female 02/02/2024 16:21 EDT Gender Identity Female 08/08/2019 16:13 EST Sexual Orientation Not on file documented as of this encounter Plan of Treatment Upcoming Encounters Date Type Department Care Team (Late st Contact Info) Description 02/07/2025 11:15 EDT Office Visit [facility] Cardiology Clinic [address] [place] [address] Yazan Hawk MD [address] [facility] [address] [place] [address] documented as of this encounter Procedures Procedure Name Priority Date/Time Associated Diagnosis Comments SURGICAL PATHOLOGY Routine 04/21/2018 8:25 EDT documented in this encounter Results * SURGICAL PATHOLOGY (04/21/2018 8:25 EDT) Pathology Report: SURGICAL PATHOLOGY REPORT Reports generated via electronic interface contain original data; however they are lacking the format of the original report. Caution should be taken when reading/interpret ing unformatted reports. Name: ? TALITA VELASCO ? Accession #: ? [id number] ? : ? 1935 (Age: 83) ??F ? Collect Date: ? 04/21/2018 ? Location: ? [facility] ? Receive Date: ? 04/21/2018 ? Provider: FARHAN ALVARENGA Copy to: UYEN ZAMORA MD ? Final Pathologic Diagnosis: A. ??SKIN OF EYE, RIGHT LATERAL, SHAVE BIOPSY: - Seborrheic keratosis. B. ??SKIN OF SCAPULA, RIGHT LATERAL, SHAVE BIOPSY: - Seborrheic keratosis. Document reviewed and electronically signed by: DIANA PEÑA MD Report ??Date: 04/23/2018 13:50 By the signature above, the attending physician certifies that he/she has personally conducted a gross and/or microscopic examination of the described specimens and rendered or confirmed the above diagnosis. Specimen(s) Received: A. ??Right lateral eye, 1.1 cm B. ??Right scapula, 0.9 cm Clinical History: Fax results to: [phone]; clinical diagnosis code: D49.2 Gross Description: A. ?Received in formalin labelled with proper patient identification (initials N, C) and R lateral eye is a shave biopsy of an irregular marshall-viera cobblestone skin (1.4 x 0.6 x 0.1 cm). The margin is inked blue, bisected and submitted in A1. B. ?Received in formalin labelled with proper patient identification (initials N, C) and R lateral scapula is a shave biopsy of a rhunw-sqk-jcnr-br own granular papule (1.0 x 0.9 x 0.1 cm). The margin is inked blue, trisected and submitted in B1. Mihrab Ali 04/22/2018 9:37 AM End of Report [facility] 04/21/2018 8:25 EDT 04/21/2018 8:25 EDT Farhan ALVARENGA PATHOLOGY ORDERABL ES [facility] [address] [place] [address] documented in this encounter Visit Diagnoses Not on filedocumented in this encounter Care Teams Tree Warden Relationship Specialty Start Date End Date Uyen Zamora MD [address] [place] [phone] PCP - General 02/18/18 documented as of this encounter
--- OUTSIDE RECORDS SUMMARY | 2024-04-26 02:21 | XMS_ITS | Encounter Summary ---
Author Organization [facility] Address [address] [place] [address] Care Team Providers Care Lean Facilitator Name Role Phone Uyen Gerard MD Primary Care Provider [phone] Reason for Visit * Reason Onset Date Comments Other 10/08/2020 Encounter Details Date Type Department Care Team (Late st Contact Info) Description 10/08/2020 Telephone [facility] [place] [address] [place] [address] Yazan Hawk MD [address] [facility] [address] [place] [address] Other Social History Tobacco Use Types Packs/Day Years [...] No 06/08/2020 documented as of this encounter Miscellaneous Notes * Telephone Encounter - Martinez Perry - 10/08/2020 1143 EST Pt called to let Dr. Hawk know that she is tolerating her increase in Metoprolol well. She hasn't had any AFIB episodes since and is feeling much better. She did have a increased heart rate on Thursday to 103BPM but it lasted only seconds. documented in this encounter Plan of Treatment Upcoming Encounters Date Type Department Care Team (Late st Contact Info) Description 02/07/2025 11:15 EDT Office Visit [facility] Cardiology Clinic [address] [place] [address] Yazan Hawk MD [address] [facility] [address] [place] [phone] documented as of this encounter Visit Diagnoses Not on filedocumented in this encounter Care Teams Lean Facilitator Relationship Specialty Start Date End Date Uyen Gerard MD [address] [place] [phone] PCP - General 02/18/18 documented as of this encounter
--- OUTSIDE RECORDS SUMMARY | 2024-04-26 02:21 | XMS_ITS | Encounter Summary ---
Author Organization [facility] Address [address] [place] [address] Care Team Providers Care Record Cutter Name Role Phone Uyen Gerard MD Primary Care Provider [phone] Yazan Hawk MD Unavailable [phone] Reason for Visit * Reason Comments Medications Refill Encounter Details Date Type Department Care Team (Late st Contact Info) Description 09/22/2022 Refill [facility] Cardiology Clinic [address] [place], [place] [phone] Yazan Hawk MD [address] [facility] [address] [place] [address] Medications Refill Social History Tobacco Use Types Packs/Day Years [...] Dispensed Refills Start Date End Da te flecainide (TAMBOCOR) 50 mg tablet TAKE 1 TABLET TWICE A DAY 180 Tablet 3 09/23/2022 09/17/2023 documented in this encounter Plan of Treatment Upcoming Encounters Date Type Department Care Team (Late st Contact Info) Description 02/07/2025 11:15 EDT Office Visit [facility] Cardiology Clinic [address] [place] [address] Yazan Hawk MD [address] [place] [phone] documented as of this encounter Visit Diagnoses Not on filedocumented in this encounter Discontinued Medications Medication Sig Discontinue Reason Start Date End Da te flecainide (TAMBOCOR) 50 mg tablet TAKE 1 TABLET TWICE A DAY 09/27/2021 09/23/2022 documented as of this encounter Care Teams Record Cutter Relationship Specialty Start Date End Date Uyen Gerard MD [address] [place] [phone] PCP - General 02/18/18 Yazan Hawk MD [address] [place] [phone] Cardiovascular Disease 08/12/21 documented as of this encounter
--- OUTSIDE RECORDS SUMMARY | 2024-04-26 02:21 | XMS_ITS | Encounter Summary ---
Author Organization [facility] Address [address] [place] [address] Care Team Providers Care Platen Grinder Name Role Phone Uyen Gerard MD Primary Care Provider [phone] Yazan Hawk MD Unavailable [phone] Reason for Visit * Reason Comments Medications Refill Encounter Details Date Type Department Care Team (Late st Contact Info) Description 03/12/2024 Refill [facility] [address], [place] [phone] Yazan Hawk MD 130 [facility] [address] [place] [address] Medications Refill Social History Tobacco [...] te metoprolol SUCCinate (TOPROL-XL) 50 mg tablet TAKE ONE AND ONE-HALF TABLETS IN THE MORNING AND 1 TABLET IN THE EVENING 225 Tablet 3 03/14/2024 documented in this encounter Plan of Treatment Upcoming Encounters Date Type Department Care Team (Late st Contact Info) Description 02/07/2025 11:15 EDT Office Visit [facility] [address] [place] [address] Yazan Hawk MD [address] [place] [phone] documented as of this encounter Visit Diagnoses Not on filedocumented in this encounter Discontinued Medications Medication Sig Discontinue Reason Start Date End Da te metoprolol SUCCinate (TOPROL-XL) 50 mg tablet TAKE ONE AND ONE-HALF TABLETS IN THE MORNING AND 1 TABLET IN THE EVENING 02/09/2023 03/14/2024 documented as of this encounter Care Teams Platen Grinder Relationship Specialty Start Date End Date Uyen Gerard MD [address] [place] [phone] PCP - General 02/18/18 Yazan Hawk MD [address] [place] [phone] Cardiovascular Disease 08/12/21 documented as of this encounter
--- OUTSIDE RECORDS SUMMARY | 2024-04-26 02:21 | XMS_ITS | Encounter Summary ---
Author Organization [facility] Address [address] [place] [address] Care Team Providers Care Assembler Fluorescent Lights Name Role Phone Uyen Gerard MD Primary Care Provider [phone] Yazan Hawk MD Unavailable [phone] Encounter Details Date Type Department Care Team (Late st Contact Info) Description 06/11/2022 Lab Requisition [facility] Pathology & Laboratory Medicine - [facility] [address] [place] [address] Outr Resulting Lab, Provider Social History Tobacco Use Types Packs/Day Years [...] No 06/08/2020 documented as of this encounter Plan of Treatment Upcoming Encounters Date Type Department Care Team (Late st Contact Info) Description 02/07/2025 11:15 EDT Office Visit [facility] [address] [place], [place] [address] Yazan Hawk MD 130 [facility] [address] [place] [phone] documented as of this encounter Procedures Procedure Name Priority Date/Time Associated Diagnosis Comments URINE MONOCLONAL PROTEIN STUDY (UPEP WITH IMMUNOTYPING) PERFORMABLE Today 06/11/2022 10:30 EDT PROTEIN, TOTAL, RANDOM, URINE Today 06/11/2022 10:30 EDT URINE MONOCLONAL PROTEIN STUDY (UPEP WITH IMMUNOTYPING) Routine 06/11/2022 10:30 EDT documented in this encounter Results * URINE MONOCLONAL PROTEIN STUDY (UPEP WITH IMMUNOTYPING) PERFORMABLE (06/11/2022 10:30 EDT) Albumin, Urine % 18.4 N/A % 06/12/20 22 14:47 [facility] Albumin, Urine mg/dL 2 mg/dL 06/12/2022 14:47 [facility] Globulins, Urine % 81.6 N/A % 06/12/2022 14:47 [facility] Globulins, Urine mg/dL 7 mg/dL 06/12/2022 14:47 [facility] UPEP Comment See Comment 06/12/2022 14:47 [facility] Comment:Electrophoresis scre ening performed; Immunotyping to follow. See scanned/supplementary report. Immunotyping, Urine Current Interpretatio n: Negative for free monoclonal light chains. Reviewed by: Aristides Ariza MD, PhD 06/12/2022 14:08. 06/12/2022 14:47 [facility] Total Protein, Urine 9 See Note mg/dL 06/12/2022 14:47 [facility] Comment: NOTE: Reference range has not been established for total protein concentration in random urine specimens. Urine URINE SPECIMEN COLLECTION, CLEAN CATCH / Unknown 06/11/2022 10:30 EDT 06/11/2022 21:22 EDT Provider Outr Resulting Lab URINALYSIS O RDERABLES Performing Organization Address [facility] Co de Phone Number [facility] [address] [place] [address] * PROTEIN, TOTAL, RANDOM, URINE (06/11/2022 10:30 EDT) Urine URINE SPECIMEN COLLECTION, CLEAN CATCH / Unknown 06/11/2022 10:30 EDT 06/11/2022 21:22 EDT Provider Outr Resulting Lab URINALYSIS O RDERABLES Performing Organization Address [facility] Co de Phone Number [facility] [address] [place] [address] documented in this encounter Visit Diagnoses Not on filedocumented in this encounter Care Teams Assembler Fluorescent Lights Relationship Specialty Start Date End Date Uyen Gerard MD [address] [place] [phone] PCP - General 02/18/18 Yazan Hawk MD [address] [place] [address] [phone] Cardiovascular Disease 08/12/21 documented as of this encounter
--- OUTSIDE RECORDS SUMMARY | 2024-04-26 02:21 | XMS_ITS | Encounter Summary ---
Author Organization [facility] [place] [address] Care Team Providers Care Road Supervisor Of Engines Name Role Phone Michael Perez MD Primary Care Provider Encounter Details Date Type Department Care Team (Late st Contact Info) Description 06/02/2011 Abstract Pulmonology at [address] [phone] Ming Carter MD [facility] [address] [address] Social History Tobacco Use Types Packs/Day Years [...] 4:30 PM EDT Office [place] [phone] Carmelina Donaldson MD [facility] [place] [address] 05/31/2024 1:00 PM EDT Appointment [place] [phone] documented as of this encounter Visit Diagnoses Not on filedocumented in this encounter Care Teams Road Supervisor Of Engines Relationship Specialty Start Date End Date Michael Perez MD PCP - General 04/24/11 03/10/13 documented as of this encounter
--- OUTSIDE RECORDS SUMMARY | 2024-04-26 02:21 | XMS_ITS | Encounter Summary ---
Author Organization [facility] Address [address] [place] [address] Care Team Providers Care Patent Litigation Associate Name Role Phone Uyen Gerard MD Primary Care Provider [phone] Yazan Hawk MD Unavailable [phone] Reason for Visit * Reason Comments Other Encounter Details Date Type Department Care Team (Late st Contact Info) Description 09/27/2021 [facility] [address] [place] [address] Yazan Hawk MD 130 [facility] [address] [place] [address] Other Social History Tobacco Use [...] TABLET TWICE A DAY 180 Tablet 3 09/27/2021 09/23/2022 documented in this encounter Plan of Treatment Upcoming Encounters Date Type Department Care Team (Late st Contact Info) Description 02/07/2025 11:15 EDT Office Visit [facility] [address] [place] [address] Yazan Hawk MD [address] [place] [phone] documented as of this encounter Visit Diagnoses Not on filedocumented in this encounter Discontinued Medications Medication Sig Discontinue Reason Start Date End Da te flecainide (TAMBOCOR) 50 mg tablet TAKE 1 TABLET TWICE A DAY 10/02/2020 09/27/2021 documented as of this encounter Care Teams Patent Litigation Associate Relationship Specialty Start Date End Date Uyen Gerard MD [address] [place] [phone] PCP - General 02/18/18 Yazan Hawk MD [address] [place] [phone] Cardiovascular Disease 08/12/21 documented as of this encounter
--- OUTSIDE RECORDS SUMMARY | 2024-04-26 02:21 | XMS_ITS | Encounter Summary ---
Author Organization [facility] Address [facility] [place] [address] Care Team Providers Care Relocation Associate Name Role Phone Lisa Murdock MD Primary Care Provider Reason for Visit * Reason Comments Abnormal X-ray pulm lesion Encounter Details Date Type Department Care Team ([facility] st Contact Info) Description 06/03/2011 9:30 AM EDT Initial consult Pulmonology at [address] [phone] Ming Carter MD [facility] [address] [address] Need for influenza vaccination (Primary Dx); Post-nasal drip Social History Tobacco Use Types Packs/Day Years [...] Saturation 96% 06/03/2011 9:45 AM EDT room air Inhaled Oxygen Concentration - - Weight 62 kg (136 lb 9.6 oz) 06/03/2011 9:45 AM EDT Height 162.6 cm (5' 4) 06/03/2011 9:45 AM EDT Body Mass Index 23.45 06/03/2011 9:45 AM EDT documented in this encounter Patient Instructions * Patient Instructions* Ming Carter MD - 06/03/2011 10:55 AM EDT Flonase one-two puffs each nostril daily Please try to obtain old Chest CT scans from prior to kidney surgery possibly [facility] or anywhere else Spiriva one puff per day Call with any questions documented in this encounter Progress Notes * Ming Carter MD - 06/03/2011 10:51 AM [...] a problem. When she would exercise in [employer] she noticed it as early as Spring 2009. January 2011 she reported some MCKENNA to her PCP. She describes it as little dyspnea upon walking briskly on incline but not limitting at all. She was sent for a cardiology test which was fine, a PFT, priyanka routine Chest CT. Had been exercising at [employer] regularly up until 9 months. Now exercising less than before because of local gyms closing. Chronic dry cough-she believes it is related to dripping from her sinuses. No wheeze heard in chest. 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 [...] routinely performed. 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 Triggers to symptoms typically include: [...] mouth 3 times daily as needed. ??? ozjiibnoiv-xkfhwkd-jseckagg (FIORINAL) 50-325-40 mg per tablet Take 1 [...] in a home. 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 Bilateralpleuroparenchymal scarring thought to be related to old [...] recently on screening studies performed by her career technical education instructor/oncologist, Dr. Sorenson. 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 To support the possibility that the chest tube contributed to these inflammatory chagnes, it would be worthwhile trying to getold chest CAT scans prior to 2005 surgery. [...] from prior to kidney surgery possibly [facility] or anywhere else Spiriva one puff per day Call with any questions Invited her family to call me anytime to discuss my thoughts. CC: MD Dr. Matthias MENDIOLA documented in this encounter Plan of Treatment Upcoming Encounters Date Type Department Care Team (Late st Contact Info) Description 05/18/2024 4:30 PM EDT Office [place] [phone] Carmelina Donaldson MD [facility] [place] [address] 05/31/2024 1:00 PM EDT [place]ointment [place] [address] documented as of this encounter Visit Diagnoses Diagnosis Need for influenza vaccination- Primary Need for prophylactic vaccination and inoculation against influenza Post-nasal drip Postnasal drip documented in this encounter Care Teams Relocation Associate Relationship Specialty Start Date End Date Lisa Murdock MD PCP - General 04/24/11 03/10/13 documented as of this encounter
--- OUTSIDE RECORDS SUMMARY | 2024-04-26 02:21 | XMS_ITS | Referral Summary ---
Author Organization [facility] Address [address] [place] [address] Care Team Providers Care Report Programmer Name Role Phone Uyen Gerard MD Primary Care Provider Yazan Hawk MD Unavailable Encounters Date Type Department Care Team Description 03/12/2024 Refill [facility] [address] [place], [place] [phone] Yazan Hawk MD Medications Refill 02/09/2024 Telephone [facility] [address] [place] [phone] Yazan Hawk MD Medication Management 02/08/2024 11:15 EDT Office Visit [facility] [address] [place], [place] [address] Yazan Hawk MD Paroxysmal atrial fibrillation (HCC-CMS) (Primary Dx); Mixed hyperlipidemia; Venous insufficiency; half-way current use of antiarrhythmic medical therapy; Essential hypertension; Current use of fpc anticoagulation from Last 3 Months Allergies Active Allergy Reactions Criticality Noted Date Comments Codeine Other (See Comments) 03/07/2019 Medications Medication Sig Dispensed Refills Start Date End Date Status losartan (COZAAR) 50 mg tablet 2 tab orally Daily Acti ve fluticasone-umeclid in-vilanter (TRELEGY ELLIPTA) 100-62.5-25 mcg 1 puff inhaled once a day Active amLODIPine (NORVASC) 5 mg tablet 1 tab(s) orally once a day Active Cod Liver Oil capsule 1 cap(s) orally once a day Active calcium carbonate-vitamin D3 600 mg-20 mcg (800 unit) tablet 1 tab(s) orally 2 times a day Active ascorbic acid, vitamin C, 1,000 mg tablet 0.5 Tablets. Active atorvastatin (LIPITOR) 10 mg tablet 1 tab orally at bedtime Active spironolactone (ALDACTONE) 25 mg tablet Take 0.5 Tablets by mouth daily. Active SUMAtriptan (IMITREX) 50 mg tablet Take 1 Tablet by mouth. Active docusate sodium (COLACE) 100 mg capsule Take 1 Capsule by mouth daily. Active cholecalciferol, Vitamin D3, 25 mcg (1,000 unit) tablet Take 1 Tablet by mouth daily. Active levalbuterol (XOPENEX HFA) 45 mcg/actuation inhaler Inhale 1 Puff as directed every 4 to 6 hours as needed. Active latanoprost (XALATAN) 0.005 % ophthalmic solution 08/21/2021 Activ e brimonidine (ALPHAGAN P) 0.1 % ophthalmic solution 11/26/2021 Activ e Docosahexanoic Acid-Eicosapent 120-180 mg capsule Take 1,000 mg by mouth daily. Active levalbuterol (XOPENEX) 0.63 mg/3 mL nebulizationIndicat ions:Cough in adult 3 mL by nebulizer 3 times a day 15 mL 02/09/2022 Active flecainide (TAMBOCOR) 50 mg tablet TAKE 1 TABLET TWICE A DAY 180 Tablet 3 09/17/2023 Active dorzolamide (TRUSOPT) 2 % ophthalmic solution Place 1 Drop into both eyes 2 times daily. Active hydroCHLOROthiazide 12.5 mg tablet Take 1 Tablet by mouth daily. 90 Tablet 3 02/08/2024 Active apixaban (ELIQUIS) 2.5 mg tablet Take 1 Tablet by mouth 2 times daily. 180 Tablet 3 02/11/2024 Active metoprolol SUCCinate (TOPROL-XL) 50 mg tablet TAKE ONE AND ONE-HALF TABLETS IN THE MORNING AND 1 TABLET IN THE EVENING 225 Tablet 3 03/14/2024 Active Active Problems Problem Noted Date Diagnosed Date Current use of exterminator helper termite anticoagulation termite inspector current use of antiarrhythmic medical therapy 08/18/2021 Venous insufficiency 06/08/2020 Paroxysmal atrial fibrillation (HCC-CMS) 019 Chronic obstructive pulmonary disease ([facility]) 08/08/2019 Essential hypertension 08/08/2019 Mixed hyperlipidemia 08/08/2019 Sleep apnea in adult 08/08/2019 Chronic renal insufficiency, stage III (moderate ) ([facility]) 08/08/2019 Social History Tobacco Use Types Packs/Day Years Used Date Smoking Tobacco: Never Smokeless Tobacco: Never Interpersonal Safety Answer Date Record ed Physically Hurt Never 04/09/2020 Verbally Threaten Not on file 04/09/2020 Sex and Gender Information Value Date Recorded Sex Assigned at Female 02/02/2024 16:21 EDT Gender Identity Female 08/08/2019 16:13 EST Sexual Orientation Not on file Last Filed Vital Signs Vital Sign Reading Time Taken Comments Blood Pressure 142/66 02/08/2024 1105 EDT Pulse 74 02/08/2024 1105 EDT Temperature 36.6 ??C (97.8 ??F) 02/09/2022 1420 EDT Respiratory Rate 18 02/09/2022 1420 EDT Oxygen Saturation 94% 02/08/2024 1105 EDT Inhaled Oxygen Concentration - - Weight 57.6 kg (127 lb) 02/08/2024 1105 EDT Height 160 cm (5' 2.99) 02/08/2024 1105 EDT Body Mass Index 22.5 02/08/2024 1105 EDT Functional Status Functional Status Response Date of [...] concentrating, remembering, or making decisions? No 06/08/2020 Plan of Treatment Upcoming Encounters Date Type Department Care Team (Late st Contact Info) Description 02/07/2025 11:15 EDT Office Visit [facility] [address] [place] [address] Yazan Hawk MD [address] [place] [address] [facility] [place] [address] Procedures Procedure Name Priority Date/Time Associated Diagnosis Comments ECG REPORT - SCANNED 02/08/2024 12:04 EDT EKG 12-LEAD Routine 02/08/2024 10:16 EDT Paroxysmal atrial fibrillation (HCC-CMS) from Last 3 Months Results * ECG REPORT - SCANNED (02/08/2024 12:04 EDT) 02/08/2024 12:0 4 EDT Scan 2 Heel Seam Rubber PROCEDURE/MINOR MARAH GICAL ORDERABLES * EKG 12-LEAD (02/08/2024 10:16 EDT) 02/08/2024 10:1 6 EDT Narrative [facility] - 02/08/2024 11:41 EDT ? CVC ? Test Date: ?2024-02-08 Pat Name: ? TALITA VELASCO ?Department: ? Room: ? Gender: ? Female ? Dynamics Ax Consultant: ?? ST : ?1935 ? Requested By: ROSIBEL SPRINGER Order Number: [id number] ? [place] CAMARA: ?? AGAPITO XAVIER MD ? Measurements Intervals ?[place] ? Rate: ? 150 ?P: ?54 OR: ? 356 ?QRS: ?0 QRSD: ? 4 ?T: ?244 QT: ? 172 ? QTc: ?271 ? Interpretive Statements Sinus tachycardia with 1st degree AV block Indeterminate axis Pulmonary disease pattern Compared to ECG 01/29/2023 15:04:24 Indeterminate axis now present I reviewed the tracing and have either agreed or edited the findings in this report. Electronically Signed On 02-08-2024 11:41:36 EDT by AGAPITO XAVIER MD. Procedure Note Agapito Xavier MD - 02/08/2024 CVC Test Date: 2024-02-08 Pat Name: TALITA VELASCO Department: Room: Gender: Female Dynamics Ax Consultant: : 1935 Requested By: ROSIBEL MODIMGEORG Order Number: [id number] Reading MD: AGAPITO XAVIER MD Measurements Intervals [place] Rate: 150 P: 54 OR: 356 QRS: 0 QRSD: 4 T: 244 QT: 172 QTc: 271 Interpretive Statements Sinus tachycardia with 1st degree AV block Indeterminate axis Pulmonary disease pattern Compared to ECG 01/29/2023 15:04:24 Indeterminate axis now present I reviewed the tracing and have either agreed or edited the findings inthis report. Electronically Signed On 02-08-2024 11:41:36 EDT by AGAPITO EL. Yazan Hawk MD CARDIAC ECG ORD ERABLES [facility] from Last 3 Months Care Teams Report Programmer Relationship Specialty Start Date End Date Uyen Gerard MD [address] [place] [phone] PCP - General 02/18/18 Yazan Hawk MD [address] [place] [address] [phone] Cardiovascular Disease 08/12/21
--- OUTSIDE RECORDS SUMMARY | 2024-04-26 02:21 | XMS_ITS | Encounter Summary ---
Author Organization [facility] Address [address] [place] [address] Care Team Providers Care Sports Management Professor Name Role Phone Uyen Gerard MD Primary Care Provider [phone] Yazan Hawk MD Unavailable Encounter Details Date Type Department Care Team (Late st Contact Info) Description 08/06/2020 Lab Requisition [facility] Pathology & Laboratory Medicine - [facility] [address] [place] [address] Outr Resulting Lab, Provider Social History Tobacco [...] Info) Description 02/07/2025 11:15 EDT Office Visit [facility] [address] [place] [address] Yazan Hawk MD 130 [facility] [address] [place] [address] documented as of this encounter Procedures Procedure Name Priority Date/Time Associated Diagnosis Comments ZZCOVID-19 TEST [facility] PCR Today 08/06/2020 9:46 EST COVID-19 TESTING Routine 08/06/2020 9:46 EST documented in this encounter Results * COVID-19 TEST [facility] PCR (08/06/2020 9:46 EST) Swab ENTIRE NASOPHARYNX / Unknown 08/06/2020 9:46 EST 08/06/2020 15:57 EST Provider Outr Resulting Lab MICROBIOLOGY - GENERAL ORDERABLES Performing Organization Address City/State/[facility] Co de Phone Number [facility] [address] [place] [phone] * COVID-19 TESTING (08/06/2020 9:46 EST) COVID-19 rt-PCR Result Negative Negative 08/07/2020 16:43 EST [facility] Comment: Negative results do not preclude 2019-nCoV infection and should not be used as the sole basis for treatment or other patient management decisions. Negative results must be combined with clinical observations, patient history, and epidemiological information. This test was developed and its performance characteristics determined by [facility]. It has not been cleared or approved by the US Food and Drug Administration. FDA does not require this test to go through premarket FDA review. This test is used for clinical purposes. It should not be regarded as investigational or for research. This laboratory is certified under the Clinical Laboratory Improvement Amendments (CLIA) as qualified to perform high complexity clinical laboratory testing. This test is based on the CDC COVID-19 Emergency Use Authorization (EUA) assay, with minor modification as defined by the FDA Performed on the Cordium 7 Flex. Performing Lab [facility] 08/07/2020 16:43 EST [facility] Swab 08/06/2020 9:46 EST 08/06/2020 15:57 EST Provider Outr Resulting Lab MICROBIOLOGY - GENERAL ORDERABLES [facility] [address] [place] [address] documented in this encounter Visit Diagnoses Not on filedocumented in this encounter Care Teams Sports Management Professor Relationship Specialty Start Date End Date Uyen eGrard MD [address] [place] [phone] PCP - General 02/18/18 Yazan Hawk MD [address] [place] [address] [address] [place] [phone] Cardiovascular Disease 08/12/21 documented as of this encounter
--- OUTSIDE RECORDS SUMMARY | 2024-04-26 02:21 | XMS_ITS | Encounter Summary ---
Author Organization [facility] Address [address] [place] [address] Care Team Providers Care Fisheries Technician Name Role Phone Uyen Gerard MD Primary Care Provider [phone] Yazan Hawk MD Unavailable [phone] Reason for Visit * Reason Comments Medications Refill Encounter Details Date Type Department Care Team (Late st Contact Info) Description 09/17/2023 Refill [facility] [address] [place], [place] [phone] Yazan Hawk MD 130 [facility] [address] [place] [address] Medications Refill Social History Tobacco [...] TWICE A DAY 180 Tablet 3 09/17/2023 documented in this encounter Plan of Treatment Upcoming Encounters Date Type Department Care Team (Late st Contact Info) Description 02/07/2025 11:15 EDT Office Visit [facility] [address] [place] [phone] Yazan Hawk MD [address] [place] [phone] documented as of this encounter Visit Diagnoses Not on filedocumented in this encounter Discontinued Medications Medication Sig Discontinue Reason Start Date End Da te flecainide (TAMBOCOR) 50 mg tablet TAKE 1 TABLET TWICE A DAY 09/23/2022 09/17/2023 documented as of this encounter Care Teams Fisheries Technician Relationship Specialty Start Date End Date Uyen Gerard MD [address] [place] [phone] PCP - General 02/18/18 Yazan Hawk MD [address] [place] [phone] Cardiovascular Disease 08/12/21 documented as of this encounter
--- OUTSIDE RECORDS SUMMARY | 2024-04-26 02:21 | XMS_ITS | Clinical Summary ---
Author Organization [facility] Address [address] [place] [address] Care Team Providers Care Data Warehouse Administrator Name Role Phone Uyen Gerard MD Primary Care Provider [phone] Yazan Hawk MD Unavailable [phone] Allergies Active Allergy Reactions Criticality Noted Date [...] Noted Date Diagnosed Date Current use of long-term anticoagulation 021 jail current use of antiarrhythmic medical therapy 08/18/2021 Venous insufficiency 06/08/2020 Paroxysmal atrial fibrillation ([facility]) 019 Chronic obstructive pulmonary disease ([facility]) 08/08/2019 Essential hypertension 08/08/2019 Mixed hyperlipidemia 08/08/2019 Sleep apnea in adult 08/08/2019 Chronic renal insufficiency, stage III (moderate ) ([facility]) 08/08/2019 Encounters Date Type Department Care Team Description 03/12/2024 Refill [facility] [address] [place] [id number] Yazan Hawk MD Medications Refill 02/09/2024 Telephone [facility] [address] [place] [address] [phone] Yazan Hawk MD Medication Management 02/08/2024 11:15 EDT Office Visit [facility] [address] [place] [phone] Yazan Hawk MD Paroxysmal atrial fibrillation (HCC-CMS) (Primary Dx); Mixed hyperlipidemia; Venous insufficiency; jail current use of antiarrhythmic medical therapy; Essential hypertension; Current use of long-term anticoagulation from Last 3 Months Social History Tobacco Use Types Packs/Day Years Used Date Smoking Tobacco: Never Smokeless Tobacco: Never Interpersonal Safety Answer Date Record ed Physically Hurt Never 04/09/2020 Verbally Threaten Not on file 04/09/2020 Sex and Gender Information Value Date Recorded Sex Assigned at Female 02/02/2024 16:21 EDT Gender Identity Female 08/08/2019 16:13 EST Sexual Orientation Not on file Obstetrics History Last Filed Vital Signs Vital Sign Reading [...] Body Mass Index 22.5 02/08/2024 1105 EDT Plan of Treatment Upcoming Encounters Date Type Department Care Team (Late st Contact Info) Description 02/07/2025 11:15 EDT Office Visit [facility] [address] [place] [address] [phone] Yazan Hawk MD [address] [place] [address] [address] [place] [phone] Health Maintenance Due Date Last Done Comments Copd Action Plan 1935 Lung Function Test (Spirometry) 1935 RSV Immunization ( o r 60+ Years) (1 - 1-dose 60+ series) 1997 COVID-19 Vaccine (2022-2 4 season) 2023 Fall Risk Screening 02/07/2025 02/08/2024, 01/29/2023, 02/24/2022, Additional history exists Procedures Procedure Name Priority Date/Time Associated Diagnosis Comments ECG REPORT - SCANNED 02/08/2024 12:04 EDT EKG 12-LEAD Routine 02/08/2024 10:16 EDT Paroxysmal atrial fibrillation ([facility]) from Last 3 Months Results * ECG REPORT - SCANNED (02/08/2024 12:04 EDT) 02/08/2024 12:0 4 EDT Scan 2 Real Estate Sales Manager PROCEDURE/MINOR MARAH GICAL ORDERABLES * EKG 12-LEAD (02/08/2024 10:16 EDT) 02/08/2024 10:1 6 EDT Narrative [facility] 02/08/2024 11:41 EDT ? CVC ? Test Date: ?2024-02-08 Pat Name: ? TALITA VELASCO ?Department: ? Room: ? Gender: ? Female ? Landscape Maintenance Internship: ?? ST : ?1935 ? Requested By: ROSIBEL SPRINGER Order Number: [id number] ? Reading MD: ?? AGAPITO XAVIER MD ? Measurements Intervals ?[place] ? Rate: ? 150 ?P: ?54 NE: ? 356 ?QRS: ?0 QRSD: ? 4 [...] Name: TALITA VELASCO Department: Room: Gender: Female Landscape Maintenance Internship: : 1935 Requested By: ROSIBEL MODIMGKEVIN Order Number: [id number] Reading MD: AGAPITO XAVIER MD Measurements Intervals [place] Rate: 150 P: 54 NE: 356 QRS: 0 QRSD: 4 T: 244 [...] Yazan Hawk MD CARDIAC ECG ORD ERABLES [facility] from Last 3 Months Care Teams Data Warehouse Administrator Relationship Specialty Start Date End Date Uyen Gerard MD [address] [place] [phone] PCP - General 02/18/18 Yazan Hawk MD [address] [place] [address] [address] [place] [phone] Cardiovascular Disease 08/12/21
--- OUTSIDE RECORDS SUMMARY | 2024-04-26 02:21 | XMS_ITS | Encounter Summary ---
Author Organization [facility] Address [address] [place] [address] Care Team Providers Care Benzene Washer Operator Name Role Phone Unknown, Provider Primary Care Provider Encounter Details Date Type Department Care Team (Latest Contact Info) Description 02/15/2018 12:27 EDT - 02/15/2018 23:59 EDT Hospital Encounter [address] [address] Unknown, Provider, Discharge Disposition: Home or Self Care Social History Tobacco Use Types Packs/Day Years Used Date Smoking Tobacco: Never Assessed Sex and Gender Information Value Date Recorded Sex Assigned at Female 02/02/2024 16:21 EDT Gender Identity Female 08/08/2019 16:13 EST Sexual Orientation Not on file documented as of this encounter Discharge Disposition Disposition Code Departure Means Destination Home or Self Retirement documented in this encounter Plan of Treatment Upcoming Encounters Date Type Department Care Team (Late st Contact Info) Description 02/07/2025 11:15 EDT Office Visit [facility] [address] [place] [address] Yazan Hawk MD [address] [facility] [address] [place] [phone] documented as of this encounter Visit Diagnoses Not on filedocumented in this encounter Care Teams Benzene Washer Operator Relationship Specialty Start Date End Date Unknown, Provider, PCP - General 09/02/16 02/17/18 documented as of this encounter
--- OUTSIDE RECORDS SUMMARY | 2024-04-26 02:21 | XMS_ITS | Encounter Summary ---
Author Organization [facility] Address [address] [place] [address] Care Team Providers Care Meat Grader Name Role Phone Uyen Gerard MD Primary Care Provider [phone] Yazan Hawk MD Unavailable [phone] Reason for Visit * Reason Comments Medications Refill Encounter Details Date Type Department Care Team (Late st Contact Info) Description 02/09/2023 Refill [facility] [address] [place], [place] [phone] Yazan Hawk MD [address] [facility] [address] [place] [phone] Medications Refill Social History Tobacco [...] TABLET IN THE EVENING 225 Tablet 3 02/09/2023 03/14/2024 documented in this encounter Plan of Treatment Upcoming Encounters Date Type Department Care Team (Late st Contact Info) Description 02/07/2025 11:15 EDT Office Visit [facility] [address] [place] [address] Yazan Hawk MD [address] [place] [phone] documented as of this encounter Visit Diagnoses Not on filedocumented in this encounter Discontinued Medications Medication Sig Discontinue Reason Start Date End Da te metoprolol SUCCinate (TOPROL-XL) 50 mg tablet CORRECTION: Take 1.5 tabs AM, 1 tab PM.. 02/14/2022 02/09/2023 documented as of this encounter Care Teams Meat Grader Relationship Specialty Start Date End Date Uyen Gerard MD [address] [place] [phone] PCP - General 02/18/18 Yazan Hawk MD [address] [place] [phone] Cardiovascular Disease 08/12/21 documented as of this encounter
--- OUTSIDE RECORDS SUMMARY | 2024-04-26 02:21 | XMS_ITS | Encounter Summary ---
Author Organization [facility] Address [address] [place] [address] Care Team Providers Care Stitch Wheeler Name Role Phone Uyen Gerard MD Primary Care Provider Yazan Hawk MD Unavailable Reason for Referral * Cardiology (Routine/Next Available) - New Request Specialty Diagnoses / Procedures Referred By [facility] Referred To Contact Diagnoses PAF (paroxysmal atrial fibrillation) (HCC-CMS) Procedures EKG 12-LEAD Yazan Hawk MD [address] [place] [address] [phone] Referral ID Status Reason Start Date Expiration Date V isits Requested Visits Authorized [id number] New Request 02/21/2022 1 1 Encounter Details Date Type Department Care Team (Late st Contact Info) Description 02/21/2022 Orders Only [facility] [address] [place] [address] Yazan Hawk MD [address] [place], [place] [address] [address] [phone] PAF (paroxysmal atrial fibrillation) (HCC-CMS) (HCC) (Primary Dx) Social History Tobacco Use Types [...] Info) Description 02/07/2025 11:15 EDT Office Visit [facility] [address] [place] [address] Yazan Hawk MD [address] [place] [address] [place] [phone] documented as of this encounter Results * EKG 12-LEAD (02/24/2022 9:18 EDT) 02/24/2022 9:18 EDT Narrative [facility] - 02/24/2022 11:24 EDT ? CVC ? Test Date: ?2022-02-24 Pat Name: ? TALITA VELASCO ?Department: ? Room: ? Gender: ? Female ? Telephone Operator: ?? SC : ?1935 ? Requested By: ROSIBEL SPRINGER Order Number: [id number] ? Reading MD: ?? AGAPITO XAVIER MD ? Measurements Intervals ?[place] ? Rate: ? 78 ? P: ? GA: ? 248 ?QRS: ?-44 QRSD: ? 76 ? T: ?32 QT: ? 392 ? QTc: ?446 ? Interpretive Statements Sinusrhythm 1st degree AV block Left anterior fascicular block Compared to ECG 08/12/2021 10:11:02 No significant changes I reviewed the tracing and have either agreed or edited the findings in this report. Electronically Signed On 02-24-2022 11:24:49 EDT by AGAPITO XAVIER MD. Procedure Note Agapito Xavier MD - 02/24/2022 CVC Test Date: 2022-02-24 Pat Name: TALITA VELASCO Department: Room: Gender: Female Telephone Operator: [place] : 1935 Requested By: ROSIBEL BUTLER Order Number: [id number] Reading MD: AGAPITO XAVIER MD Measurements Intervals [place] Rate: 78 P: GA: 248 QRS: -44 QRSD: 76 T: 32 QT: 392 QTc: 446 Interpretive Statements Sinusrhythm 1st degree AV block Left anterior fascicular block Compared to ECG 08/12/2021 10:11:02 No significant changes I reviewed the tracing and have either agreed or edited the findings inthis report. Electronically Signed On 02-24-2022 11:24:49 EDT by AGAPITO EL. Yazan Hawk MD CARDIAC ECG ORD ERABLES [facility] documented in this encounter Visit Diagnoses Diagnosis PAF (paroxysmal atrial fibrillation) (HCC-CMS)- Primary Atrial fibrillation PAF (paroxysmal atrial fibrillation) (HCC-CMS)- Primary Atrial fibrillation Essential hypertension Unspecified essential hypertension Mixed hyperlipidemia [facility] current use of antiarrhythmic medical therapy Current use of longitudinal float operator anticoagulation Long-term (current) use of anticoagulants Sleep apnea in adult documented in this encounter Care Teams Stitch Wheeler Relationship Specialty Start Date End Date Uyen Gerard MD [address] [place] [phone] PCP - General 02/18/18 Yazan Hawk MD [address] [place] [address] [place] [phone] Cardiovascular Disease 08/12/21 documented as of this encounter
--- OUTSIDE RECORDS SUMMARY | 2024-04-26 02:21 | XMS_ITS | Encounter Summary ---
Author Organization [facility] Address [address] [place] [address] Care Team Providers Care Computer Systems Administrator Name Role Phone Uyen Gerard MD Primary Care Provider [phone] Kristina Hawk MD Unavailable [phone] Reason for Referral * Cardiology (Routine/Next Available) - New Request Specialty Diagnoses / Procedures Referred By Contac t Referred To Contact Diagnoses Atrial fibrillation, unspecified type (HCC-CMS) Procedures EKG 12-LEAD Kristina Hawk MD [address] [place], [place] [address] [address] [place] [address] Referral ID Status Reason Start Date Expiration Date V isits Requested Visits Authorized [id number] New Request 01/26/2024 1 1 Reason for Visit * Reason Comments Atrial Fibrillation Hypertension Hyperlipidemia Chronic Obstructive Pulmonary Disease * Cardiology (Routine/Next Available) - New Request Specialty Diagnoses / Procedures Referred By Contac t Referred To Contact Diagnoses Atrial fibrillation, unspecified type (HCC-CMS) Procedures EKG 12-LEAD Kristina Hawk MD [address] [place], [place] [address] [address] [place] [address] Referral ID Status Reason Start Date Expiration Date V isits Requested Visits Authorized [id number] New Request 01/26/2024 1 1 Encounter Details Date Type Department Care Team (Latest Contact Info) Description 02/08/2024 11:15 EDT Office Visit [facility] [address] [place] [address] Kristina Hawk MD [address] [facility] [address] [place] [phone] Paroxysmal atrial fibrillation (HCC-CMS) (Primary Dx); Mixed hyperlipidemia; Venous insufficiency; half-way current use of antiarrhythmic medical therapy; Essential hypertension; Current use of parts counterman anticoagulation Social History Tobacco Use Types Packs/Day [...] EDT Pulse 74 02/08/2024 1105 EDT Temperature - - Respiratory Rate - - Oxygen Saturation 94% 02/08/2024 1105 EDT Inhaled Oxygen Concentration - - Weight 57.6 kg (127 lb) 02/08/2024 1105 EDT Height 160 cm (5' 2.99) 02/08/2024 1105 EDT Body Mass Index 22.5 02/08/2024 1105 EDT documented in this encounter Functional Status [...] Dispensed Refills Start Date End Da te apixaban (ELIQUIS) 2.5 mg tablet Take 1 Tablet by mouth 2 times daily. 180 Tablet 3 02/11/2024 hydroCHLOROthiazide 12.5 mg tablet Take 1 Tablet by mouth daily. 90 Tablet 3 02/08/2024 documented in this encounter Progress Notes * Kristina Hawk MD - 02/08/2024 1115 EDT [facility] [place] Subjective: Chief Complaint(s): Atrial Fibrillation , Hypertension, Hyperlipidemia, and Chronic Obstructive Pulmonary Disease HPI: 89 y.o. woman with paroxysmal atrial fibrillation, hypertension, hyperlipidemia, COPD, migraines, history of renal cancer status post right nephrectomy 2004. First episode of AF with RVR 08/2016, received ditiazem with spont. conversion to sinus rhythm during ER evaluation. Started on metoprolol and apixaban. Was hospitalized 11/2018 in [place], with fluttering in her chest and lightheadedness. Extensive work-up included head CT and MRI, echocardiogram, EKG, chest x-ray, renal artery Doppler, cardiac catheterization, sleep study and extensive lab testing. Several heart medications were changed/newly started (metoprolol 200 mg, losartan 100 mg, flecainide 50 mg, amlodipine 5 mg). By her report, cardiac cath did not show significant disease. She went on a cruise in October 2022 where she had a COVID-negative severe upper respiratory tractinfection. She reports irregular rhythm, with occasional brief flutters. Returns to the office with her daughter. Her spouse in July 2023. Despite these stressful times, she reports no significant recurrence of atrial fibrillation. No chest pain. She tries to stay active, walking up stairs appears to cause more shortness of breath recently. She had 1 recent episode with vomiting and lightheadedness, but no syncope about 1 week ago. Now feeling well again. She has noted more ankle edema, worse at the end of the day. She brings in a detailed blood pressure and heart rate record which shows suboptima blood pressure control with SBP's in the 129-155 mmHg range. Heart rates mostly in the 60s and 70s. She denies recent exertional chest pain, shortness of breath with ADLs, recent syncope, orthopnea, PND, edema, bleeding. She has chronic constipation issues. She has had hypertension since her 50s, she denies a history of [place], diabetes, TIA/CVA, cardiomyopathy, peripheral vascular disease, thyroid disease. She gave up on her CPAP machine, as she did not find a way to make the system comfortable. Data review: Sleep study 12/2018, [facility]: Mild obstructive sleep apnea, not using CPAP. Event monitor (Preo SEEQ) 10/07/16-11/08/16: Baseline sinus rhythm, daily heart rate average 70-90/min, heart rate spectrum 60-150/, 4 days with documented AF episodes, minutes to a few hours. Echocardiogram, [facility], 09/01/2016: Normal LV size and function, mild LVH, LVEF 65-70%, normal regional wall motion. MAC, moderate focal calcification of the posterior mitral leaflet, mild MR, mildly dilated LA, RV size upper normal limits, low normal RV systolic function, mildly dilated RA, moderateTR, mildly increased PA pressure, 42 mmHg, trivial pericardial effusion. Holter EKG, [facility], 06/2016: Sinus rhythm, rare single PAC, 3 bursts SVT, longest 9 beats, 172/min, no AF. Rare single PVC, no VT. No bradycardia. No symptoms. Average 1 minute heart rate 88/min, dojhu89-355/min. Chest x-ray, [facility], 08/31/2015: Heart at the upper limits of normal, lungs generally clear, except for some faint reticulonodular densities seen in the right midlung and apex laterally, consistent with radiodensities identified on CT. Chest CT, [facility], 08/30/2016: Market biconvex thoracolumbar scoliosis, scattered [...] Current Outpatient Medications Medication Sig Dispense Refill amLODIPine (NORVASC) 5 mg tablet 1 tab(s) orally once a day apixaban (ELIQUIS) 5 mg tablet Take 1 Tablet by mouth 2 times daily. ascorbic acid, vitamin C, 1,000 mg tablet 0.5 Tablets. atorvastatin (LIPITOR) 10 mg tablet 1 tab orally at bedtime brimonidine (ALPHAGAN P) 0.1 % ophthalmic solution (Patient not taking: Reported on 02/08/2024) calcium carbonate-vitamin D3 600 mg-20 mcg (800 unit) tablet 1 tab(s) orally 2 times a day (Patientnot taking: Reported on 02/08/2024) cholecalciferol, Vitamin D3, 25 mcg (1,000 unit) tablet Take 1 Tablet by mouth daily. Cod Liver Oil capsule 1 cap(s) orally once a day (Patient not taking: Reported on 02/08/2024) Docosahexanoic Acid-Eicosapent 120-180 mg capsule Take 1,000 mg by mouth daily. (Patient not taking: Reported on 01/29/2023) docusate sodium (COLACE) 100 mg capsule Take 1 Capsule by mouth daily. dorzolamide (TRUSOPT) 2 % ophthalmic solution Place 1 Drop into both eyes 2 times daily. flecainide (TAMBOCOR) 50 mg tablet TAKE 1 TABLET TWICE A DAY 180 Tablet 3 bveredtberr-fsvqitmqn-decfqsbm (TRELEGY ELLIPTA) 100-62.5-25 mcg 1 puff inhaled once a day latanoprost (XALATAN) 0.005 % ophthalmic solution levalbuterol (XOPENEX HFA) 45 mcg/actuation inhaler Inhale 1 Puff as directed every 4 to 6 hours asneeded. levalbuterol (XOPENEX) 0.63 mg/3 mL nebulization 3 mL by nebulizer 3 times a day 15 mL 0 losartan (COZAAR) 50 mg tablet 2 tab orally Daily metoprolol SUCCinate (TOPROL-XL) 50 mg tablet TAKE ONE AND ONE-HALF TABLETS IN THE MORNING AND 1 TABLET IN THE EVENING 225 Tablet 3 spironolactone (ALDACTONE) 25 mg tablet Take 0.5 Tablets by mouth daily. SUMAtriptan (IMITREX) 50 mg tablet Take 1 Tablet by mouth. No current facility-administered medications for this visit. Past Medical History Paroxysmal atrial fibrillation, dx 08/2016, [id number] score =4, Started on Flecainide in [place], 11/2018 Cardiac cath, [place], [place] 11/2018: No significant coronary disease Hypertension Hyperlipidemia COPD/emphysema History of renal cancer, status post right nephrectomy 2004 Migraines Family History Mother: 94 yrs, atrial fibrillation Paternal Grand Mother: , angina, from [place] in her 70ies Father passed in 1984. [...] learning? No. 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 Allergies codeine: stomach upset: Side Effects Review of Systems GENERAL: - A 10-system ROS was performed. Pertinent items as above. Otherwise negative.. Objective: Examination: Vitals: BP (!) 142/66 (BP Cuff Location: Right arm, BP Patient Position: Sitting, BP Cuff Sizes: Adult, regular) Pulse 74 Ht 160 cm (62.99) Wt 57.6 kg (127 lb) SpO2 94% BMI 22.50 kg/m?? Body mass index is 22.5 kg/m??. Physical Exam General Exam: GENERAL APPEARANCE: [...] Sinus rhythm with first-degree AV delay, 60/min, MN 226 ms, QRS 102 ms, QT 412 ms,incomplete right bundle branch block and L anterior fascicular block. EKG, 06/08/2020: Sinus rhythm with first-degree AV delay and PACs. 71/min, MN 232 ms, QRS 92 ms, QT 398 ms, QTC 432 ms, left anterior fascicular block. EKG 08/12/2021: Sinus bradycardia with sinus arrhythmia and first-degree AV delay, 59/min, MN 244 ms, QRS 88 ms, QT 404 ms, left anterior fascicular block. EKG 02/24/2022: Sinus rhythm with first-degree AV delay, 78/min, MN 248 ms, QRS 76 ms, QT 392 ms, QTC 446 ms, left anterior fascicular block. Labs, [facility], 02/14/2022: Glucose 94, BUN 29, creatinine 0.98, sodium 127, potassium 4.8, chloride 89,CO2 30, anion gap 8, calcium 9.6, GFR 53, urine sodium 41 EKG 01/29/2023: Sinus rhythm with first-degree AV block, 70/min, MN 258 ms, QRS 86 ms, QT 398 ms, QTc 429 ms, possible left atrial enlargement, left anterior fascicular block, nonspecific T wave abnormality. EKG 02/08/2024: Sinus rhythm with first-degree AV delay, 75 /min, QRS 88 ms,QT, 380ms, QTc 425 ms, left anterior fascicular block. Assessment & Plan: 1. Paroxysmal atrial fibrillation ([facility]) EKG 12-LEAD EKG 12-LEAD 2. Mixed hyperlipidemia 3. 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 Essential hypertension 6. Current use of parts counterman anticoagulation 89 y.o. woman with paroxysmal atrial fibrillation, hypertension, hyperlipidemia, COPD, migraines, history of renal cancer status post right nephrectomy 2004. AF was diagnosed in 08/2016, terminated spontaneously. Her [id number] score is 4, anticoagulation with apixaban/Eliquis is appropriate. Symptomatic recurrence of AF in [place] 11/2018. Cardiac cath was negative, started on flecainide for sup pression of PAF. Doing reasonably well, still grieving the passing of her in July 2023. EKG today again with sinus rhythm. No significant recurrence of AF. Will continue Flecainide. Her blood pressure log shows suboptimal numbers on the high side. Recommended to start low-dose hydrochlorothiazide, which will also help with increased ankle edema from venous insufficiency. Additionally she will try compression stockings. We then discussed Eliquis dose adaptation. With her weight now below 60 kg, she qualifies for reduced dose Eliquis, which would be 2.5 mg twice daily. I spent a total of 30 minutes on the date of this encounter meeting with the patient and reviewing documentation/coordinating care as described in the above note. This was separate from any procedures performed at the time of the visit. Kristina Hawk MD * Natalie Weaver RN - 02/08/2024 4205 EDT Spoke with patient, she is aware of Dr Hawk's advice for repeat blood work ( non fasting). She requests to have them drawn at [facility] outpatient lab. Orders faxed to [facility] outpatient lab at [phone]. She is aware of need to call lab to schedule appt to have labs drawn [phone]. She verbalizes understanding and encouraged to call with any questions or concerns. documented in this encounter Plan of Treatment Upcoming Encounters Date Type Department Care Team (Late st Contact Info) Description 02/07/2025 11:15 EDT Office Visit [facility] Cardiology Clinic [address] [place] [id number] Kristina Hawk MD [address] [place] [address] [address] [place] [address] Scheduled Orders Name Type Priority Associated Diagnoses Orde r Schedule BASIC METABOLIC PANEL (BMP) Lab Routine Essential hypertension Expected: 02/27/2024 (Approximate), Expires: 02/12/2025 documented as of this encounter Procedures Procedure Name Priority Date/Time Associated Diagnosis Comments ECG REPORT - SCANNED 02/08/2024 12:04 EDT EKG 12-LEAD Routine 02/08/2024 10:16 EDT Paroxysmal atrial fibrillation (HCC-CMS) documented in this encounter Results * ECG REPORT - SCANNED (02/08/2024 12:04 EDT) 02/08/2024 12:0 4 EDT Scan 2 Public Health Aide PROCEDURE/MINOR MARAH GICAL ORDERABLES * EKG 12-LEAD (02/08/2024 10:16 EDT) 02/08/2024 10:1 6 EDT [facility] - 02/08/2024 11:41 EDT ? CVC ? Test Date: ?2024-02-08 Pat Name: ? TALITA VELASCO ?Department: ? Room: ? Gender: ? Female ? Ore Digger: ?? ST : ?1935 ? Requested By: HAWK KRISTINARACHNA SPRINGER Order Number: [id number] ? Benton CAMARA: ?? AGAPITO XAVIER MD ? Measurements Intervals ?Nova ? Rate: ? 150 ?P: ?54 MN: ? 356 ?QRS: ?0 QRSD: ? 4 [...] Name: TALITA VELASCO Department: Room: Gender: Female Ore Digger: : 1935 Requested By: ROSIBEL BUTLER Order Number: [id number] Benton MD: AGAPITO XAVIER MD Measurements Intervals Nova Rate: 150 P: 54 MN: 356 QRS: 0 QRSD: 4 T: 244 QT: 172 QTc: 271 Interpretive Statements Sinus tachycardia with 1st degree AV block Indeterminate axis Pulmonary disease pattern Compared to ECG 01/29/2023 15:04:24 Indeterminate axis now present I reviewed the tracing and have either agreed or edited the findings inthis report. Electronically Signed On 02-08-2024 11:41:36 EDT by AGAPITO EL. Kristina Hawk MD CARDIAC ECG ORD ERABLES [facility] documented in this encounter Visit Diagnoses Diagnosis Paroxysmal atrial fibrillation ([facility])- Primary Atrial fibrillation Mixed hyperlipidemia Venous insufficiency Unspecified venous (peripheral) insufficiency half-way current use of antiarrhythmic medical therapy Essential hypertension Unspecified essential hypertension Current use of parts counterman anticoagulation Long-term (current) use of anticoagulants documented in this encounter Discontinued Medications Medication Sig Discontinue Reason Start Date End Da te apixaban (ELIQUIS) 5 mg tablet Take 1 Tab by mouth 2 times daily. Alternate therapy 03/29/2020 02/08/2024 documented as of this encounter Historical Medications * This list may reflect changes made after this encounter. Medication Sig Dispensed Refills Start Date End Date dorzolamide (TRUSOPT) 2 % ophthalmic solution Place 1 Drop into both eyes 2 times daily. added in this encounter Care Teams Computer Systems Administrator Relationship Specialty Start Date End Date Uyen Gerard MD [address] [place] [phone] PCP - General 02/18/18 rKistina Hawk MD [address] [place] [address]-A [address] [place] [phone] Cardiovascular Disease 08/12/21 documented as of this encounter
--- OUTSIDE RECORDS SUMMARY | 2024-04-26 02:21 | XMS_ITS | Encounter Summary ---
Author Organization [facility] Address [address] [place] [address] Care Team Providers Care Clinical Reviewer Name Role Phone Uyen Gerard MD Primary Care Provider [phone] Yazan Hawk MD Unavailable Encounter Details Date Type Department Care Team (Late st Contact Info) Description 06/11/2022 Lab Requisition [facility] Pathology & Laboratory Medicine - [facility] [address] [place] [address] Outr Resulting Lab, Provider Social History Tobacco [...] [facility] [address] [place], [place] [address] Yazan Hawk MD [address] [facility] [address] [place] [address] documented as of this encounter Procedures Procedure Name Priority Date/Time Associated Diagnosis Comments SPEP, INCLUDES QUANTITATION OF MONOCLONAL SPIKE PERFORMABLE Today 06/11/2022 10:30 EDT HOLD SST Today 06/11/2022 10:30 EDT SERUM FREE LIGHT CHAINS Today 06/11/2022 10:30 EDT SPEP, INCLUDES QUANTITATION OF MONOCLONAL SPIKE Today 06/11/2022 10:30 EDT PROTEIN, TOTAL Today 06/11/2022 10:30 EDT documented in this encounter Results * HOLD SST (06/11/2022 10:30 EDT) Hold Hold 06/11/2022 22:31 EDT [facility] Blood VENOUS BLOOD / Unknown 06/11/2022 10:30 EDT 06/11/2022 21:22 EDT Provider Outr Resulting Lab LAB INFO SER VICE AND SUPPORT & PHONE RESULT Performing Organization Address City/State/[facility] Co de Phone Number [facility] [address] [place] [phone] * (ABNORMAL) SPEP, INCLUDES QUANTITATION OF MONOCLONAL SPIKE PERFORMABLE (06/11/2022 10:30 EDT) Albumin % 55.4(L) 55.8 - 66.1 % 06/12/2022 14:56 EDT [facility] Albumin g/dL 4.2 3.6 - 5.2 g/dL 06/12/2022 14:56 EDT [facility] Alpha-1 % 3.9 2.9 - 4.9 % 06/12/2022 14:56 [facility] Alpha-1 g/dL 0.30 0.15 - 0.40 g/dL 06/12/2022 14:56 [facility] Alpha-2 % 9.1 7.1 - 11.8 % 06/12/2022 14:56 [facility] Alpha-2 g/dL 0.70 0.50 - 1.00 g/dL 06/12/2022 14:56 [facility] Beta % 11.3 8.4 - 13.1 % 06/12/2022 14:56 [facility] Beta g/dL 0.80 0.60 - 1.20 g/dL 06/12/2022 14:56 [facility] Gamma % 20.3(H) 11.1 - 18.8 % 06/12/2022 14:56 [facility] Gamma g/dL 1.50 0.60 - 1.60 g/dL 06/12/2022 14:56 [facility] SPEP Comment No apparent monoclonal protein seen on serum electrophoresis 06/12/2022 14:56 [facility] Comment:See scanned/suppleme ntary report. Total Protein 7.5 6.3 - 8.2 g/dL 06/12/2022 14:56 [facility] Blood VENOUS BLOOD / Unknown 06/11/2022 10:30 EDT 06/11/2022 21:22 EDT Provider Outr Resulting Lab CHEMISTRY & BLOOD GAS ORDERABLES [facility] [address] [place] [address] * PROTEIN, TOTAL (06/11/2022 10:30 EDT) Blood VENOUS BLOOD / Unknown 06/11/2022 10:30 EDT 06/11/2022 21:22 EDT Provider Outr Resulting Lab CHEMISTRY & BLOOD GAS ORDERABLES [facility] [address] [place] [address] * (ABNORMAL) SERUM FREE LIGHT CHAINS (06/11/2022 10:30 EDT) [place] Free Lt Chain 2.35(H) 0.33 - 1.94 mg/dL 06/12/2022 9:14 EDT [facility] Lambda Free Lt Chain 2.88(H) 0.57 - 2.63 mg/dL 06/12/2022 9:14 EDT [facility] [place]/Lambda Ratio 0.82 0.26 - 1.65 06/12/2022 9:14 EDT [facility] Blood VENOUS BLOOD / Unknown 06/11/2022 10:30 EDT 06/11/2022 21:22 EDT Provider Outr Resulting Lab CHEMISTRY & BLOOD GAS ORDERABLES Performing Organization Address [facility] Co de Phone Number [facility] [address] [place] [address] documented in this encounter Visit Diagnoses Not on filedocumented in this encounter Care Teams Clinical Reviewer Relationship Specialty Start Date End Date Uyen Gerard MD [address] [place] [phone] PCP - General 02/18/18 Yazan Hawk MD [address] [place] [address]- [address] [place] [address] Cardiovascular Disease 08/12/21 documented as of this encounter
--- OUTSIDE RECORDS SUMMARY | 2024-04-26 02:21 | XMS_ITS | Encounter Summary ---
Author Organization [facility] Address [address] [place] [address] Care Team Providers Care Building Dismantler Name Role Phone Unknown, Provider Primary Care Provider Encounter Details Date Type Department Care Team (Late Contact Info) Description 02/15/2018 Results Only [facility] [phone] Harry Ibrahim MD [address] [place] [phone] Social History Tobacco Use Types Packs/Day Years Used Date Smoking Tobacco: Never Assessed Sex and Gender Information Value Date Recorded Sex Assigned at Female 02/02/2024 16:21 EDT Gender Identity Female 08/08/2019 16:13 EST Sexual Orientation Not on file documented as of this encounter Plan of Treatment Upcoming Encounters Date Type Department Care Team (Late Contact Info) Description 02/07/2025 11:15 EDT Office Visit [facility] [address] [place] [address] Yazan Hawk MD [address] [facility] [address] [place] [address] documented as of this encounter Procedures Procedure Name Priority Date/Time Associated Diagnosis Comments CYTOPATHOLOGY Routine 02/15/2018 0:00 EDT documented in this encounter Results * CYTOPATHOLOGY (02/15/2018 0:00 EDT) Pathologist [facility] Pathology Report: CYTOPATHOLOGY REPORT Reports generated via electronic interface contain original data; however they are lacking the format of the original report. Caution should be taken when reading/interpret ing unformatted reports. Name: ? TALITA VELASCO ? Accession #: ? [id number] : ? 1935 (Age: 83) ??F ?Collect Date: ? 02/15/2018 Location: ? [facility] ? Receive Date: ? 02/17/2018 Provider: ? HARRY IBRAHIM MD Copy to: ?PAM ZAMORA MD ? CYTOLOGIC DIAGNOSIS: URINE, NOS: - ?Negative for malignancy. - ?Benign and reactive urothelial cells, scattered acute ? and chronic inflammatory cells, several bacterial colonies, ? and amorphous proteinaceous debris. Document reviewed and electronically signed by: ? JESSICA DUMONT MD Report Date: ??02/17/2018 16:50 By the signature above, the attending physician certifies that he/she has personally conducted a gross and/or microscopic examination of the described specimens and rendered or confirmed the above diagnosis. Specimen Type: ? Urine, NOS Clinical History: ? 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 ? Gross Description: ? 60ccs of clear yellow fluid, of which 30ccs are composed of fixative, were received and processed by selective cellular enhancement technique. ? . ? End of Report [facility] 02/15/2018 02/17/2018 8:5 9 EDT Harry Ibrahim MD PATHOLOGY ORDERABLES [facility] [address] [place] [address] documented in this encounter Visit Diagnoses Not on filedocumented in this encounter Care Teams Building Dismantler Relationship Specialty Start Date End Date Unknown, Provider, PCP - General 09/02/16 02/17/18 documented as of this encounter
--- OUTSIDE RECORDS SUMMARY | 2024-04-26 02:21 | XMS_ITS | Encounter Summary ---
Author Organization [facility] [place] [address] Care Team Providers Care Skiver Welt End Name Role Phone Michael Perez MD Primary Care Provider Encounter Details Date Type Department Care Team (Late st Contact Info) Description 04/24/2011 10:30 AM EDT Laboratory Appointment [address] [phone] CLINIC[facility] [address] [place] [address] Discharge Disposition: Home Social History Tobacco Use [...] 4:30 PM EDT [place] [address] Carmelina Donaldson MD [facility] [place] [address] 05/31/2024 1:00 PM EDT [place] [address] documented as of this encounter Procedures Procedure Name Priority Date/Time Associated Diagnosis Comments DIFFERENTIAL, AUTOMATED Routine 04/24/2011 10:24 AM EDT SEDIMENTATION RATE Routine 04/24/2011 10 :24 AM EDT CBC (WITH DIFF) Routine 04/24/2011 10:24 AM EDT LACTATE DEHYDROGENASE Routine 04/24/2011 10:24 AM EDT COMPREHENSIVE METABOLIC PANEL Routine 04/24/2011 10:24 AM EDT documented in this encounter Results * (ABNORMAL) LACTATE DEHYDROGENASE (04/24/2011 10:24 AM EDT) Lactate Dehydrogenase 240(H) 110 - 220 unit/L CERNER MILLENNIUM Blood specimen (specimen) 04/24/2011 10:24 AM EDT 04/24/2011 1:54 PM EDT Brennan Paz MD CHEMISTRY ORDERABLES CERNER MILLENNIUM * (ABNORMAL) COMPREHENSIVE METABOLIC PANEL (NON-FASTING) (04/24/2011 10:24 AM EDT) Glucose 94 60 - 199 mg/dL CERNER MILLENNIUM Comment:Diabetes: >=200 mg/d L plus symptoms Blood Urea Nitrogen 24(H) 8 - 18 mg/dL CERNER MILLENNIUM Creatinine 1.15 0.70 - 1.20 mg/dL CERNER MILLENNIUM Sodium 138 135 - 145 mmol/L CERNER MILLENNIUM Potassium 4.1 3.5 - 5.0 mmol/L CERNER MILLENNIUM Comment: Please note: ??Patients with WBC >100,000 may have falsely elevated Potassium levels. ??For accurate Potassium quantification in these patients send serum separator tube (gold top) for subsequent determinations. ??Contact the Clinical Chemistry Laboratory if there are any questions. Chloride 101 98 - 107 mmol/L CERNER MILLENNIUM Carbon Dioxide 30 22 - 31 mmol/L CERNER MILLENNIUM Anion Gap 7 5 - 15 mmol/L CERNER MILLENNIUM Calcium 9.8 8.5 - 10.5 mg/dL CERNER MILLENNIUM Protein, Total 8.0 6.4 - 8.3 gm/dL CERNER MILLENNIUM Albumin 4.3 3.2 - 5.2 gm/dL CERNER MILLENNIUM Aspartate Aminotransferase 40(H) 0 - 30 unit/L CERNER MILLENNIUM Alanine Aminotransferase 39(H) 0 - 30 unit/L CERNER MILLENNIUM Alkaline Phosphatase 60 40 - 104 unit/L CERNER MILLENNIUM Bilirubin, Total 0.4 0.2 - 1.3 mg/dL CERNER MILLENNIUM Bilirubin, Direct 0.1 0.0 - 0.3 mg/dL CERNER MILLENNIUM Est Glomerular Filtration Rate 46(L) >=60 CERNER MILLENNIUM Comment: The National Kidney Disease Education Program (NKDEP) has recommended all laboratories report estimated GFR (eGFR) along with plasma creatinine measurements to assist you with recognition of early kidney disease. Caveats: ??Plasma creatinine should be at steady-state (unchanged within the past week). For patients multiply eGFR by 1.2.MDRD equation has not been validated for pediatric patients and is only valid for patients with age >= 18 years. At present, NKDEP does NOT recommend using the MDRD equation for drug dosing purposes and pharmacists should continue to use their current dosing methods. In addition, numerical eGFR values greater than 60 ml/min/1.73 square meters should be treated as > 60, and not an exact number due to greater inaccuracies at these higher values. Per NKDEP, they classify normal renal function as any GFR >60ml/min/1.73 square meters; chronic kidney disease when GFR <60, and renal failure when GFR <15. ??This calculation may not be valid for patients with atypical muscle mass (very lean or obese), acute renal failure, and in patients with diabetic kidney disease. References: http://nkdep.nih.gov/resources/NKDEP_Suggestn4Labs_0606_508.pdf http://www.kidney.org/professionals/kls/pdf/faq_gfr.pdf Blood specimen (specimen) 04/24/2011 10:24 AM EDT 04/24/2011 1:54 PM EDT Brennan Paz MD CHEMISTRY ORDERABLES CERDELISA ROPERENNIUM * REFLEX LAB-A-DIFF (04/24/2011 10:24 AM EDT) Neutrophil % 60.4 34.0 - 71.0 % CERNER MILLENNIUM Neutrophil Absolute 3.80 1.50 - 6.30 x10(3)/mcL CERNER MILLENNIUM Lymph % 27.2 19.0 - 53.0 % CERNER MILLENNIUM Lymphocytes Abs 1.7 1.0 - 3.6 x10(3)/mcL CERNER MILLENNIUM Monocyte % 10.0 4.0 - 13.0 % CERNER MILLENNIUM Monocyte Abs 0.6 0.2 - 1.0 x10(3)/mcL CERNER MILLENNIUM Eos % 1.9 0.0 - 7.0 % CERNER MILLENNIUM Eosinophils Abs 0.1 0.0 - 0.5 x10(3)/mcL CERNER MILLENNIUM Basophil % 0.5 0.0 - 2.0 % CERNER MILLENNIUM Baso Absolute 0.0 0.0 - 0.2 x10(3)/mcL CERNER MILLENNIUM Blood specimen (specimen) 04/24/2011 10:24 AM EDT 04/24/2011 12:07 PM EDT Brennan Paz MD HEMATOLOGY ORDERABLE S CERNER JUDSONENNIUM * CBC (WITH DIFF) (04/24/2011 10:24 AM EDT) White Blood Cell 6.3 4.0 - 10.0 x10(3)/mcL CERNER MILLENNIUM Red Blood Cell 4.92 3.93 - 5.22 x10(6)/mcL CERNER MILLENNIUM Hemoglobin 14.2 11.2 - 15.7 gm/dL CERNER MILLENNIUM Hematocrit 42.5 34.0 - 45.0 % CERNER MILLENNIUM Mean Cell Volume 86.4 79.0 - 94.0 fL CERNER MILLENNIUM Mean Cell Hemoglobin 28.9 26.6 - 32.2 pg CERNER MILLENNIUM Mean Cell Hemoglobin Concentration 33.4 32.0 - 36.5 gm/dL CERNER MILLENNIUM Platelet 214 145 - 370 x10(3)/mcL CERNER MILLENNIUM RDW Standard Deviation 41.4 35.0 - 46.0 fL CERNER MILLENNIUM RDW coefficient of variation 13.3 10.9 - 14.4 % CERNER MILLENNIUM Mean Platelet Volume 10.5 9.0 - 12.0 fL CERNER MILLENNIUM Blood specimen (specimen) 04/24/2011 10:24 AM EDT 04/24/2011 12:06 PM EDT Brennan Paz MD HEMATOLOGY ORDERABLE S LANIE HARRELL * SEDIMENTATION RATE (04/24/2011 10:24 AM EDT) Sedimentation Rate Automated 16 0 - 20 mm/hr LANIE ROPERENNIUM Blood specimen (specimen) 04/24/2011 10:24 AM EDT 04/24/2011 10:57 AM EDT Brennan Paz MD HEMATOLOGY ORDERABLE S LANIE HARRELL documented in this encounter Visit Diagnoses Not on filedocumented in this encounter Care Teams Skiver Welt End Relationship Specialty Start Date End Date Michael Perez MD PCP - General 04/24/11 03/10/13 documented as of this encounter
--- OUTSIDE RECORDS SUMMARY | 2024-04-26 02:21 | XMS_ITS | Encounter Summary ---
Author Organization [facility] Address [address] [place] [address] Care Team Providers Care Surface Hydrologist Name Role Phone Uyen Gerard MD Primary Care Provider [phone] Reason for Visit * Reason Onset Date Comments Medications Refill 03/29/2020 Encounter Details Date Type Department Care Team (Late st Contact Info) Description 03/29/2020 Refill [facility] [address] [place] [address] Mraissa Boykin, RN Medications Refill Social History Tobacco Use Types Packs/Day Years Used Date Smoking Tobacco: Never Smokeless Tobacco: Never Sex and Gender Information Value Date Recorded Sex Assigned at Female 02/02/2024 16:21 EDT Gender Identity Female 08/08/2019 16:13 EST Sexual Orientation Not on file documented as of this encounter Ordered Prescriptions Prescription Sig Dispensed Refills Start Date End Da te flecainide (TAMBOCOR) 50 mg tablet Take 1 Tab by mouth 2 times daily. 180 Tab 1 03/29/2020 10/02/2020 apixaban (ELIQUIS) 5 mg tablet Take 1 Tab by mouth 2 times daily. 180 Tab 1 03/29/2020 02/08/2024 documented in this encounter Miscellaneous Notes * Telephone Encounter - Marissa Boykin, RN - 03/29/2020 6882 EDT Requested Prescriptions Signed Prescriptions Disp Refills ??? apixaban (ELIQUIS) 5 mg tablet 180 Tab 1 Sig: Take 1 Tab by mouth 2 times daily. Authorizing Provider: KRISTINA HAWK Ordering User: MARISSA BOYKIN ??? flecainide (TAMBOCOR) 50 mg tablet 180 Tab 1 Sig: Take 1 Tab by mouth 2 times daily. Authorizing Provider: KRISTINA HAWK Ordering User: MARISSA BOYKIN documented in this encounter Plan of Treatment Upcoming Encounters Date Type Department Care Team (Late st Contact Info) Description 02/07/2025 11:15 EDT Office Visit [facility] [address] [place], [place] [phone] Kristina Hawk MD [address] [facility] [address] [place] [address] documented as of this encounter Visit Diagnoses Not on filedocumented in this encounter Discontinued Medications Medication Sig Discontinue Reason Start Date End Da te apixaban (ELIQUIS) 5 mg tablet orally 2 times a day Reorder 03/29/2020 flecainide (TAMBOCOR) 50 mg tablet 1 tab(s) orally every 12 hours Reorder 03/29/2020 documented as of this encounter Care Teams Surface Hydrologist Relationship Specialty Start Date End Date Uyen Gerard MD [address] [place] [phone] PCP - General 02/18/18 documented as of this encounter
--- OUTSIDE RECORDS SUMMARY | 2024-04-26 02:21 | XMS_ITS | Encounter Summary ---
Author Organization [facility] [place] [address] Care Team Providers Care Senior Fund Accountant Name Role Phone Michael Perez MD Primary Care Provider Encounter Details Date Type Department Care Team (Late st Contact Info) Description 04/24/2011 10:40 AM EDT Laboratory Appointment [address] [phone] Argenis Mack MD [address] [facility] [place] [address] Discharge Disposition: Home Social History Tobacco Use [...] 4:30 PM EDT Office [place] [phone] Carmelina Donaldson MD [facility] [place] [address] 05/31/2024 1:00 PM EDT Appointment [place] [address] documented as of this encounter Visit Diagnoses Not on filedocumented in this encounter Care Teams Senior Fund Accountant Relationship Specialty Start Date End Date Michael Perez MD PCP - General 04/24/11 03/10/13 documented as of this encounter
--- OUTSIDE RECORDS SUMMARY | 2024-04-26 02:21 | XMS_ITS | Encounter Summary ---
Author Organization [facility] Address [address] [place] [address] Care Team Providers Care Construction Plumber Name Role Phone Uyen Gerard MD Primary Care Provider [phone] Yazan Hawk MD Unavailable [phone] Reason for Visit * Reason Onset Date Comments Diagnostic Imaging Report 02/09/2022 Encounter Details Date Type Department Care Team (Late st Contact Info) Description 02/09/2022 Telephone [facility] [place] [address] [place] [phone] Geraldine Welch PA-C [address] [facility] [address] [place], [place] [phone] Diagnostic Imaging Report Social History Tobacco Use Types Packs/Day Years [...] encounter Miscellaneous Notes * Telephone Encounter - Geraldine Welch PA-C - [...] in agreement with plan. 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 Geraldine * Telephone Encounter - Treasure Brewster - 02/10/2022 1019 EDT Provider note read to the patient. She understands and does not need a call back and will follow plan of care. * Telephone Encounter - Geraldine Welch PA-C - 02/09/2022 1624 EDT Tried both home and call numbers and left vm on cell (per patient request) instructing to call office back regarding chest XRAY results. Plan will be to continue the treatment we had discussed at office visit including doxy, prednisone,inhalers/nebs. documented in this encounter Plan of Treatment Upcoming Encounters Date Type Department Care Team (Late st Contact Info) Description 02/07/2025 11:15 EDT Office Visit [facility] [address] [place] [address] Yazan Hawk MD [address] [facility] [address] [place] [address] documented as of this encounter Visit Diagnoses Not on filedocumented in this encounter Care Teams Construction Plumber Relationship Specialty Start Date End Date Uyen Gerard MD [address] [place] [phone] PCP - General 02/18/18 Yazan Hawk MD [address] [place] [phone] Cardiovascular Disease 08/12/21 documented as of this encounter
--- OUTSIDE RECORDS SUMMARY | 2024-04-26 02:21 | XMS_ITS | Encounter Summary ---
Author Organization [facility] Address [address] [place] [address] Care Team Providers Care Parts Interpreter Name Role Phone Uyen Gerard MD Primary Care Provider Encounter Details Date Type Department Care Team (Latest Contact Info) Description 04/21/2018 15:46 EDT - 04/21/2018 23:59 EDT Hospital Encounter [address] [address] Unknown, Provider, Discharge Disposition: Home or Self [...] Info) Description 02/07/2025 11:15 EDT Office Visit [facility] [address] [place] [address] Yazan Hawk MD [address] [facility] [place] [address] documented as of this encounter Visit Diagnoses Not on filedocumented in this encounter Care Teams Parts Interpreter Relationship Specialty Start Date End Date Uyen Gerard MD [address] [place] [phone] PCP - General 02/18/18 documented as of this encounter
--- OUTSIDE RECORDS SUMMARY | 2024-04-26 02:21 | XMS_ITS | Encounter Summary ---
Author Organization [facility] Address [address] [place] [address] Care Team Providers Care Fur Nailer Name Role Phone Uyen Gerard MD Primary Care Provider [phone] Reason for Visit * Reason Comments Follow-up Atrial Fibrillation Other Antiarrhythmic Rx wi th Flecainide Encounter Details Date Type Department Care Team (Late st Contact Info) Description 08/09/2019 10:00 EST Office Visit [facility] [address] [place], [place] [address] Yazan Hawk MD [address] [facility] [address] [place] [address] Paroxysmal atrial fibrillation (HCC-CMS) (Primary Dx); Essential hypertension; Mixed hyperlipidemia; Chronic obstructive pulmonary disease, unspecified COPD type (HCC-CMS); Chronic renal insufficiency, stage III (moderate) (HCC-CMS); Sleep apnea, unspecified type Social History Tobacco [...] - documented in this encounter Patient Instructions * Patient Instructions* Yazan Hawk MD - 08/09/2019 10:00 EST 1. Continue current medication. 2. Follow blood pressure. 3. Exercise. documented in this encounter Progress Notes * Yazan Hawk MD - 08/09/2019 1000 EST [facility] Cardiology Department Subjective: Chief Complaint(s): Follow-up; Atrial [...] Was hospitalized in November 2018 while in [place], where she had fluttering in her chest [...] are about to close their house in [place] and moved to [place] for the winter. She occasionally gets short of breathwith vigorous exercise, had only a couple of brief flutters in her chest. She feels that she did not get enough exercise this summer. She feels also that her circulation is not great, with her fingertips often easily getting cold. She is going to see her residential designer at [facility] on Thursday. She denies recent chest pain, shortness of breath with ADLs, recent syncope, orthopnea, PND, edema,bleeding, digestive troubles. She has had hypertension since her 50s, she denies a history of [place], diabetes, TIA/CVA, cardiomyopathy, peripheral vascular disease, thyroid disease. Data review: Labs 02/15/2019: Creatinine 1.06, estimated GFR 50. Sleep study 12/2018, [facility]: Mild obstructive sleep apnea. Event monitor (eRALOS3 SEEQ) 10/07/16-11/08/16: Baseline sinus rhythm, daily heart rate average 70-90/min, heart rate spectrum 60-150/, 4 days with documented AF episodes, minutes to a few hours. Echocardiogram, [facility], 09/01/2016: Normal LV size and function, mild LVH, LVEF 65-70%, normal regional wall motion. MAC, moderate focal calcification of the posterior mitral leaflet, mild MR, mildly dilated LA, RV size upper normal limits, low normal RV systolic function, mildly dilated RA, moderateTR, mildly increased PA pressure, 42 mmHg, trivial pericardial effusion. Holter EKG, [facility], 06/2016: Sinus rhythm, rare single PAC, 3 bursts SVT, longest 9 beats, 172/min, no AF. Rare single PVC, no VT. No bradycardia. No symptoms. Average 1 minute heart rate 88/min, ntsyt58-637/min. Chest x-ray, [facility], 08/31/2015: Heart at the upper limits of normal, lungs generally clear, except for some faint reticulonodular densities seen in the right midlung and apex laterally, consistent with radiodensities identified on CT. Chest CT, [facility], 08/30/2016: Market biconvex thoracolumbar scoliosis, scattered [...] are unremarkable in appearance. Current Outpatient Medications on File Prior to [...] 1 tab(s) orally every 12 hours ??? ehhhebsxvmx-oqnkvuxjt-wwplfbfe (TRELEGY ELLIPTA) 100-62.5-25 mcg 1 puff inhaled [...] Medical History Paroxysmal atrial fibrillation, dx 08/2016, [id number] score =4, Started on Flecainide in [place], 11/2018 Cardiac cath, [place], [place] 11/2018: No significant coronary disease Hypertension Hyperlipidemia COPD/emphysema History of renal cancer, status post right nephrectomy 2005 Migraines Family History Mother: 94 yrs, atrial fibrillation Paternal Grand Mother: , angina, from [place] in her 70ies Father passed in 1984. [...] learning? No. 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 Allergies codeine: stomach upset: Side Effects Review [...] Sinus rhythm with first-degree AV delay, 60/min, WA 226 ms, QRS 102 ms, QT 412 [...] was diagnosed in 08/2016, terminated spontaneously. Her [id number] score is 4, anticoagulation with apixaban/Eliquis is appropriate. Symptomatic recurrence of AF in [place] 11/2018. Cardiac cath was negative, started on flecainide for suppression of PAF. EKG with sinus rhythm and acceptable QRS width. Her blood pressure log shows acceptable measurements in recent months (see scanned documents). She also has follow-up with her neph rologist next week. Total mtqg-at-xgcr time: 25 minutes, >50% spent counseling on [...] Info) Description 02/07/2025 11:15 EDT Office Visit [facility] [address] [place], [place] [phone] Yazan Hawk MD [address] [place] [address] [place] [address] documented as of this encounter Visit Diagnoses Diagnosis Paroxysmal atrial fibrillation (HCC-CMS)- Primary Atrial fibrillation Essential hypertension Unspecified essential hypertension Mixed hyperlipidemia Chronic obstructive pulmonary disease, unspecified COPD type (HCC-CMS) Chronic renal insufficiency, stage III (moderate) (HCC-CMS) Chronic kidney disease, Stage III (moderate) Sleep apnea, unspecified type documented in this encounter Historical Medications * This list may reflect changes made after this encounter. Medication Sig Dispensed Refills Start Date End Date spironolactone (ALDACTONE) 25 mg tablet Take 0.5 Tablets by mouth daily. atorvastatin (LIPITOR) 10 mg tablet 1 tab orally at bedtime ascorbic acid, vitamin C, 1,000 mg tablet 0.5 Tablets. calcium carbonate-vitamin D3 600 mg-20 mcg (800 unit) tablet 1 tab(s) orally 2 times a day Cod Liver Oil capsule 1 cap(s) orally once a day amLODIPine (NORVASC) 5 mg tablet 1 tab(s) orally once a day fnazayqrqcg-ocpyhvvrz-uw lanter (TRELEGY ELLIPTA) 100-62.5-25 mcg 1 puff inhaled once a day losartan (COZAAR) 50 mg tablet 2 tab orally Daily sumatriptan (IMITREX) 25 mg tabletIndications:UNSURE OF DOSAGE Take 25 mg by mouth as needed for Migraine. 02/09/2022 cholecalciferol, Vitamin D3, 2,000 unit tablet 1 tab(s) orally once a day 02/09/2022 docusate sodium (COLACE CLEAR) 50 mg capsule 2 cap(s) orally once a day 02/09/2022 levalbuterol (XOPENEX) 0.63 mg/3 mL nebulization 3 mL by nebulizer 3 times a day 02/09/2022 metoprolol succinate 100 mg capsule,sprinkle,ER 24hr 1.5 tabs orally 100mg AM, 50 mg PM 06/08/2020 flecainide (TAMBOCOR) 50 mg tablet 1 tab(s) orally every 12 hours 03/29/2020 apixaban (ELIQUIS) 5 mg tablet orally 2 times a day 020 added in this encounter Care Teams Fur Nailer Relationship Specialty Start Date End Date Uyen Gerard MD [address] [place] [phone] PCP - General 02/18/18 documented as of this encounter
--- OUTSIDE RECORDS SUMMARY | 2024-04-26 02:21 | XMS_ITS | Clinical Summary ---
Author Organization [employer]: [facility] Care Address [facility] [phone] [place] [address] Care Team Providers Care Scheduling Assistant Name Role Phone Uyen Gerard MD Primary Care Provider [phone] Allergies Active Allergy Reactions Criticality Noted Date Comments Codeine Nausea 11/26/2021 Medications Medication Sig Dispensed Refills Start Date End Date Status apixaban (ELIQUIS) 5 MG Oral Tab Take 5 mg by mouth TWICE A DAY. Active losartan (COZAAR) 50 MG Oral Tab Take 50 mg by mouth TWICE A DAY. Every evening. Active flecainide (TAMBOCOR) 50 MG Oral Tab Take 50 mg by mouth TWICE A DAY. Active spironolactone (ALDACTONE) 25 MG Oral Tab Take 25 mg by mouth EVERY MORNING. Active amLODIpine (NORVASC) 5 MG Oral Tab Take 5 mg by mouth EVERY EVENING. Active metoprolol tartrate (LOPRESSOR) 50 MG Oral Tab Take 75 mg by mouth TWICE A DAY. Active metoprolol tartrate (LOPRESSOR) 50 MG Oral Tab Take 50 mg by mouth TWICE A DAY. Active atorvastatin (LIPITOR) 10 MG Oral Tab Take 10 mg by mouth EVERY EVENING. Active SUMAtriptan succinate (IMITREX) 50 MG Oral Tab Take 50 mg by mouth ONCE & MAY REPEAT ONCE AFTER 2 HOURS for Migraine. Active Fluticasone-Umeclid in-Vilant (TRELEGY ELLIPTA IN) Active Levalbuterol Tartrate (XOPENEX) 45 MCG/ACT Inhalation Aerosol Inhale 1 Puff EVERY 4 TO 6 HOURS NEEDED. Active levalbuterol (XOPENEX) 0.31 MG/3ML Inhalation Nebu Soln Use 1 Vial via nebulizer EVERY 8 HOURS. Active docusate sodium (COLACE) 100 MG Oral Cap Take 100 mg by mouth DAILY. Active [place]-3 Fatty Acids (FISH OIL) 1000 MG Oral Cap Take 1,000 mg by mouth DAILY. Active cholecalciferol (VITAMIN D3) 25 MCG (1000 UT) Oral Tab Take 1,000 Units by mouth DAILY. Active ascorbic acid (VITAMIN C) 1000 MG Oral Tab Take 1,000 mg by mouth DAILY. Active Calcium Carbonate-Vitamin D (CALTRATE 600+D PO) Take by mouth TWICE A DAY. Active brimonidine (ALPHAGAN P) 0.1 % Ophthalmic Solution Instill 1 Drop in both eyes twice a day. 15 mL 3 08/24/2023 Active Additional Information Patient not taking.Reported on 09/30/2023 latanoprost (XALATAN) 0.005 % Ophthalmic Solution Instill 1 Drop in both eyes once daily every evening. 7.5 mL 3 01/06/2024 12/31/2024 Active dorzolamide (TRUSOPT) 2 % Ophthalmic Solution instill 1 drop in both eyes twice daily 10 mL 3 02/15/2024 05/15/2024 Active Active Problems No known active problems Encounters Date Type Department Care Team Description 02/15/2024 Refill [facility] [address] [phone] Gladys England MD Refill/Eprescribe from Last 3 Months Family History Medical History Relation Comments Glaucoma Mother Relation Status Comments Mother Social History Tobacco Use Types Packs/Day Years Used Date Smoking Tobacco: Never Smokeless Tobacco: Never Alcohol Use Standard Drinks/Week Comments Yes 0 (1 standard drink = 0.6 oz pur e alcohol) Sex and Gender Information Value Date Recorded Sex Assigned at Not on file Gender Identity Not on file Sexual Orientation Not on file Last Filed [...] Care Team (Late st Contact Info) Description 06/08/2024 10:40 AM EDT Eye Care Visit [facility] [address] [place] [phone] Gladys England MD [address] [place] [address] Health Maintenance Due Date Last Done Comments Cholesterol 1935 DTaP/Tdap/Td Vaccines (1 - Tdap) 01/15/1956 Zoster (Shingles) Vaccines (1 of 2) 1987 RSV Vaccine ( Women OR Adults 60+) (1 - 1-dose 60+ series) 1997 Osteoporosis Screening 2002 Pneumococcal Vaccine: 65+ Ye ars (1 of 1 - PCV) 2002 COVID-19 Vaccine (1 - 2022-2 4 season) 2023 Influenza Vaccine (#1) 2024 HIB Vaccines Aged Out No longer eligi ble based on patient's age to complete this topic HPV Vaccines Aged Out No longer eligi ble based on patient's age to complete this topic Hepatitis A Vaccines Aged Out No long er eligible based on patient's age to complete this topic Hepatitis B Vaccines Aged Out No long er eligible based on patient's age to complete this topic IPV Vaccines Aged Out No longer eligi ble based on patient's age to complete this topic Meningococcal Vaccines Aged Out No lo nger eligible based on patient's age to complete this topic Care Teams Scheduling Assistant Relationship Specialty Start Date End Date Uyen Gerard MD [facility] [address] [facility] [place] [address] PCP - General Family Medicine 08/27/21
--- OUTSIDE RECORDS SUMMARY | 2024-04-26 02:21 | XMS_ITS | Encounter Summary ---
Author Organization [facility] Address [address] [place] [address] Care Team Providers Care Applications Administrator Name Role Phone Uyen Gerard MD Primary Care Provider [phone] Reason for Visit * Reason Comments Follow-up Encounter Details Date Type Department Care Team (Late st Contact Info) Description 02/08/2021 10:00 EDT Office Visit [facility] [address] [place], [place] [phone] Yazan Hawk MD [address] [facility] [address] [place] [address] Paroxysmal atrial fibrillation (HCC-CMS) (Primary [...] Sign Reading Time Taken Comments Blood Pressure 126/66 02/08/2021 1003 EDT Pulse 66 02/08/2021 1003 EDT Temperature - - Respiratory Rate - - Oxygen Saturation 92% 02/08/2021 1003 EDT Inhaled Oxygen Concentration - - Weight 63.8 kg (140 lb 9.6 oz) 02/08/2021 1003 E DT Height 160 cm (5' 3) 02/08/2021 1003 EDT Body Mass Index 24.91 02/08/2021 1003 EDT documented in this encounter Functional Status [...] metoprolol SUCCinate (TOPROL-XL) 50 mg tablet Take 2 Tabs by mouth every morning AND 1 Tab every evening. CORRECTION: Take 1.5 tabs AM, 1 tab PM.. 225 Tab 3 02/08/2021 02/14/2022 metoprolol SUCCinate (TOPROL-XL) 50 mg tablet Take 2 Tabs by mouth every morning AND 1 Tab every evening. 225 Tab 3 02/08/2021 02/08/2021 documented in this encounter Progress Notes * Yazan Hawk MD - 02/08/2021 1000 EDT [facility] Note Subjective: Chief Complaint(s): Follow-up HPI: 86-year-old woman with paroxysmal atrial fibrillation, hypertension, hyperlipidemia, COPD, migraines, history of renal cancer status post right nephrectomy 2004. First episode of AF with RVR 08/2016, received ditiazem with spont. conversion to sinus rhythm during ER evaluation. Started on metoprolol and apixaban. Was hospitalized 11/2018 in [place], with fluttering in her chest and lightheadedness. [...] Today in the office, she reports doing well. She feels more sedentary due to the Covis confinement,gained some weight, gets slightly more short of breath with vigorous exercise. Has issues with worsening COPD, will be seen at [facility] for a second opinion soon. She denies recent chest pain, shortness of breath with ADLs, recent syncope, orthopnea, PND, edema,bleeding, digestive troubles. She has had hypertension since her 50s, she denies a history of [place], diabetes, TIA/CVA, cardiomyopathy, peripheral vascular disease, thyroid disease. Data review: Labs 02/15/2019: Creatinine 1.06, estimated GFR 50. Sleep study 12/2018, [facility]: Mild obstructive sleep apnea, not using CPAP. Event monitor (Glowbl SEEQ) 10/07/16-11/08/16: Baseline sinus rhythm, daily heart rate average 70-90/min, heart rate spectrum 60-150/, 4 days with documented AF episodes, minutes to a few hours. Echocardiogram, [facility], 09/01/2016: Normal LV size and function, mild LVH, LVEF 65-70%, normal regional wall motion. MAC, moderate focal calcification of the posterior mitral leaflet, mild MR, mildly dilated LA, RV size upper normal limits, low normal RV systolic function, mildly dilated RA, moderateTR, mildly increased PA pressure, 42 mmHg, trivial pericardial effusion. Holter EKG, [facility], 06/2016: Sinus rhythm, rare single PAC, 3 bursts SVT, longest 9 beats, 172/min, no AF. Rare single PVC, no VT. No bradycardia. No symptoms. Average 1 minute heart rate 88/min, jubln38-852/min. Chest x-ray, [facility], 08/31/2015: Heart at the upper limits of normal, lungs generally clear, except for some faint reticulonodular densities seen in the right midlung and apex laterally, consistent with radiodensities identified on CT. Chest CT, [facility], 08/30/2016: Market biconvex thoracolumbar scoliosis, scattered [...] 2 times daily. 180 Tab 1 ??? qgbxgxgqvtk-jmrhjywje-exnsyzeb (TRELEGY ELLIPTA) 100-62.5-25 mcg 1 puff inhaled [...] Medical History Paroxysmal atrial fibrillation, dx 08/2016, [id number] score =4, Started on Flecainide in [place], 11/2018 Cardiac cath, [place], [place] 11/2018: No significant coronary disease Hypertension Hyperlipidemia COPD/emphysema History of renal cancer, status post right nephrectomy 2005 Migraines Family History Mother: 94 yrs, atrial fibrillation Paternal Grand Mother: , angina, from [place] in her 70ies Father passed in 1984. [...] barriersto learning? No. 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 Allergies codeine: stomach upset: Side Effects Review of Systems GENERAL: - A 10-system ROS was performed. Pertinent items as above. Otherwise negative.. Objective: Examination: Vitals: BP 126/66 (BP Cuff Location: Right arm, BP Patient Position: Sitting, BP Cuff Sizes: Adult, regular) Pulse 66 Ht 160 cm (63) Wt 63.8 kg (140 lb 9.6 oz) SpO2 92% BMI 24.91 kg/m?? Body mass index is 24.91 kg/m??. Physical Exam General Exam: GENERAL APPEARANCE: [...] Sinus rhythm with first-degree AV delay, 60/min, RI 226 ms, QRS 102 ms, QT 412 ms,incomplete right bundle branch block and L anterior fascicular block. EKG, 06/08/2020: Sinus rhythm with first-degree AV delay and PACs. 71/min, RI 232 ms, QRS 92 ms, QT 398 ms, QTC 432 ms, left anterior fascicular block. Assessment & Plan: 1. Paroxysmal atrial fibrillation (HCC-CMS) 2. Essential hypertension 3. Mixed hyperlipidemia 4. Chronic obstructive pulmonary disease, unspecified COPD type ([facility]) 86-year-old woman with paroxysmal atrial fibrillation, hypertension, hyperlipidemia, COPD, migraines, history of renal cancer status post right nephrectomy 2004. AF was diagnosed in 08/2016, terminated spontaneously. Her [id number] score is 4, anticoagulation with apixaban/Eliquis is appropriate. Symptomatic recurrence of AF in [place] 11/2018. Cardiac cath was negative, started on flecainide for suppression of PAF. EKG today again with sinus rhythm and acceptable QRS width. Her blood pressureshows acceptable measurements in recent months with Metoprolol 75&50mg/d. Continue current meds. Increase SOB is likely related to deconditioning and suboptimally treated COPD. Encouraged her to try more exercise this spring. Yazan Hawk MD documented in this encounter Plan of Treatment Upcoming Encounters Date Type Department Care Team (Late st Contact Info) Description 02/07/2025 11:15 EDT Office Visit [facility] [address] [place] [id number] Yazan Hakw MD [address] [facility] [address] [place] [address] documented as of this encounter Procedures Procedure Name Priority Date/Time Associated Diagnosis Comments EKG 12-LEAD 02/08/2021 10:49 EDT documented in this encounter Results * EKG 12-LEAD (02/08/2021 10:49 EDT) 02/08/2021 10:4 9 EDT Narrative [facility] - 02/08/2021 10:49 EDT ? [facility] ? Test Date: ?2021-02-08 10:49:17 Pat Name: ? TALITA LEODAN ?Department: ?Room: ? Gender: ? F ?Field Irrigation Worker: ?? KP : ?1935 ? Requested By: Order Number: ?Reading MD: ?? Ming Stellar, MD ? Measurements Intervals ?[place] ? Rate: ? 62 ? P: ?33 RI: ? 228 ?QRS: ?-43 QRSD: ? 86 ? T: ?2 QT: ? 416 ? QTc: ?422 ? Interpretive Statements Sinus rhythm with 1st degree AV block Left axis deviation Abnormal ECG Compared to ECG 06/08/2020 10:28:42 Left-axis deviation now present Atrial premature complex(es) no longer present Ventricular premature complex(es) no longer present Left anterior fascicular block no longer present Electronically Signed On 02-08-2021 14:55:10 EDT by Ming Ellis MD [email or web address] OK[facility]OMA [email or web address] Procedure Note Ming Ellis MD - 02/08/2021 [facility] Test Date: 2021-02-08 10:49:17 Pat Name: TALITA VELASCO Department: Room: Gender: Field Irrigation Worker: : 1935 Requested By: Order Number: Reading MD: Ming Ellis MD Measurements Intervals [place] Rate: 62 P: 33 RI: 228 QRS: -43 QRSD: 86 T: 2 QT: 416 QTc: 422 Interpretive Statements Sinus rhythm with 1st degree AV block Left axis deviation Abnormal ECG Compared to ECG 06/08/2020 10:28:42 Left-axis deviation now present Atrial premature complex(es) no longer present Ventricular premature complex(es) no longer present Left anterior fascicular block no longer present Electronically Signed On 02-08-2021 14:55:10 EDT by Mnig Ellis MD [email or web address] – OKLAHOMA CITYEPCHASITYCompanion [email or web address] Yazan Hawk MD CARDIAC ECG ORD ERABLES [facility] [address] [place] [address] documented in this encounter Visit Diagnoses Diagnosis Paroxysmal atrial fibrillation ([facility])- Primary Atrial fibrillation Essential hypertension Unspecified essential hypertension Mixed hyperlipidemia Chronic obstructive pulmonary disease, unspecified COPD type ([facility]) documented in this encounter Discontinued Medications Medication Sig Discontinue Reason Start Date End Da te metoprolol SUCCinate (TOPROL-XL) 50 mg tablet Take 1 Tab by mouth 2 times daily. Reorder 06/24/2020 02/08/2021 metoprolol SUCCinate (TOPROL-XL) 50 mg tablet Take 2 Tabs by mouth every morning AND 1 Tab every evening. 02/08/2021 02/08/2021 documented as of this encounter Care Teams Applications Administrator Relationship Specialty Start Date End Date Uyen Gerard MD [address] [place] [phone] PCP - General 02/18/18 documented as of this encounter
--- OUTSIDE RECORDS SUMMARY | 2024-04-26 02:21 | XMS_ITS | Encounter Summary ---
Author Organization [facility] [place] [address] Care Team Providers Care Professor Of Law Name Role Phone Michale Perez MD Primary Care Provider Encounter Details Date Type Department Care Team (Late st Contact Info) Description 08/25/2011 1:05 PM EST Office Visit CAT Scan at [address] [phone] Social History Tobacco Use Types [...] as of this encounter Miscellaneous Notes * Miscellaneous - John Ruiz - 08/27/2011 10:31 AM EST documented in this encounter Plan of Treatment Upcoming Encounters Date Type Department Care Team (Late st Contact Info) Description 05/18/2024 4:30 PM EDT Office [place] [address] Carmelina Donaldson MD [facility] [address] 05/31/2024 1:00 PM EDT Appointment [place] [address] documented as of this encounter Procedures Procedure Name Priority Date/Time Associated Diagnosis Comments CT CHEST W CONTRAST Routine 08/25/2011 1 2:46 PM EST documented in this encounter Results * CT CHEST WITH CONTRAST (08/25/2011 12:46 PM EST) Anatomical Region Laterality Modality Chest Computed Tomogra phy 08/25/2011 12:4 6 PM EST Impressions 08/26/2011 9:35 AM EST IMPRESSION: 1. Chronic parenchymal changes are noted probably representing chronic interstitial disease with a rather protean differential. Findings are stable compared to a recent examination as well as 04/09/09 suggesting benign process. No evidence for metastatic disease. 2. Stable small nodule in the left lobe, also unchanged from 04/15 confirming a benign nature. No evidence for metastatic disease. Chaim Yusuf M.D./RI383 Doc #:[id number] Narrative 08/26/2011 9:35 AM EST REASON FOR EXAM: renal cell cancer CHEST CT WITH CONTRAST History: Restaging of renal cell cancer. Spiral axial imaging from the apices through the diaphragms is performed following administration of 80 cc of Omnipaque 350 intravenous contrast. No hilar, mediastinal, nor axillary adenopathy is clearly evident. Apical pleural thickening is noted bilaterally, more prominently on the right at the medial aspect of the right apex. There is additional pleural thickening seen caudad to the apex along the right posterior and lateral margin of the upper lung field. Slight pleural parenchymal small nodularity and minimal linear appearance is seen in the right upper lung field laterally as defined on image 20 and 21 through at least image 30 where there becomes slightly more confluent curvilinear density with a form of air alveologram or air bronchogram. There is a subtle tree-in-bud configuration suggested to some of the parenchymal changes. A small pleural based 3 to 4 mm nodule is seen in the left lower lobe towards the apical segment posteriorly on image 38 of series 3. Additional linear and nodular type appearance is seen at the inferior, middle, and lingular lobes. This is somewhat similar to the previously described changes on the right in the ??lung field. Slightly more confluent pleural thickening is seen very caudally at the ventral right lower lobe region. Regional skeleton is unremarkable. Comparison is made to prior examination most recently 04/25/11. There is little significant change in the parenchymal changes described on the current examination and if anything less prominent compared to the prior examination. The small nodule at the apical left lower lobe is similar. Findings are also similar dating back to 04/09/09. Procedure Note Chaim Yusuf MD - 08/26/2011 REASON FOR EXAM: renal cell cancer CHEST CT WITH CONTRAST History: Restaging of renal cell cancer. Spiral axial imaging from the apices through the diaphragms is performed following administration of 80 cc of Omnipaque 350 intravenous contrast. No hilar, mediastinal, nor axillary adenopathy is clearly evident. Apical pleural thickening is noted bilaterally, more prominently on theright at the medial aspect of the right apex. There is additional pleuralthickening seen caudad to the apex along the right posterior and lateral margin ofthe upper lung field. Slight pleural parenchymal small nodularity andminimal linear appearance is seen in the right upper lung field laterally asdefined on image 20 and 21 through at least image 30 where there becomes slightlymore confluent curvilinear density with a form of air alveologram or air bronchogram. There is a subtle tree-in-bud configuration suggested to someof the parenchymal changes. A small pleural based 3 to 4 mm nodule is seen inthe left lower lobe towards the apical segment posteriorly on image 38 ofseries 3. Additional linear and nodular type appearance is seen at the inferior,middle, and lingular lobes. This is somewhat similar to the previously described changes on the right in the lung field. Slightly more confluent pleural thickening is seen very caudally at the ventral right lower lobe region. Regional skeleton is unremarkable. Comparison is made to prior examination most recently 04/25/11. There is little significant change in the parenchymal changes described on thecurrent examination and if anything less prominent compared to the priorexamination. The small nodule at the apical left lower lobe is similar. Findings arealso similar dating back to 04/09/09. IMPRESSION IMPRESSION: 1. Chronic parenchymal changes are noted probably representing chronic interstitial disease with a rather protean differential. Findings arestable compared to a recent examination as well as 04/09/09 suggesting benignprocess. No evidence for metastatic disease. 2. Stable small nodule in the left lobe, also unchanged from 04/15confirming a benign nature. No evidence for metastatic disease. Chaim Yusuf M.D./[id number] Doc #:[id number] Mirta Sorenson MD IMG CT ORDERABLES documented in this encounter Visit Diagnoses Not on filedocumented in this encounter Care Teams Professor Of Law Relationship Specialty Start Date End Date Michael Perez MD PCP - General 04/24/11 03/10/13 documented as of this encounter
--- OUTSIDE RECORDS SUMMARY | 2024-04-26 02:21 | XMS_ITS | Encounter Summary ---
Author Organization [facility] Address [address] [place] [address] Care Team Providers Care Seam Checker Name Role Phone Uyen Gerard MD Primary Care Provider [phone] Yazan Hawk MD Unavailable [phone] Reason for Visit * Reason Comments Other Encounter Details Date Type Department Care Team (Late st Contact Info) Description 02/14/2022 [facility] [address] [place] [address] Yazan Hawk MD [address] [facility] [address] [place] [address] Other Social History Tobacco Use [...] AM, 1 tab PM.. 225 Tablet 3 02/14/2022 02/09/2023 documented in this encounter Plan of Treatment Upcoming Encounters Date Type Department Care Team (Late st Contact Info) Description 02/07/2025 11:15 EDT Office Visit [facility] [address] [place] [address] Yazan Hawk MD [address] [place] [phone] documented as of this encounter Visit Diagnoses Not on filedocumented in this encounter Discontinued Medications Medication Sig Discontinue Reason Start Date End Da te metoprolol SUCCinate (TOPROL-XL) 50 mg tablet Take 2 Tabs by mouth every morning AND 1 Tab every evening. CORRECTION: Take 1.5 tabs AM, 1 tab PM.. 02/08/2021 02/14/2022 documented as of this encounter Care Teams Seam Checker Relationship Specialty Start Date End Date Uyen Gerard MD [address] [place] [phone] PCP - General 02/18/18 Yazan Hawk MD [address] [place] [address] [phone] Cardiovascular Disease 08/12/21 documented as of this encounter
--- OUTSIDE RECORDS SUMMARY | 2024-04-26 02:21 | XMS_ITS | Encounter Summary ---
Author Organization [facility] Address [address] [place] [address] Care Team Providers Care Composite Bond Technician Name Role Phone Uyen Gerard MD Primary Care Provider [phone] Yazan Hawk MD Unavailable [phone] Reason for Visit * Reason Comments Other follow up Encounter Details Date Type Department Care Team (Latest Contact Info) Description 08/12/2021 10:00 EST Office Visit [facility] [address] [place] [address] Yazan Hawk MD [address] [facility] [address] [place] [address] Paroxysmal atrial fibrillation (HCC-CMS) (HCC) (Primary Dx); Essential hypertension; Sleep apnea in adult; Current use of nursing home anticoagulation; 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 First episode of AF with RVR 08/2016, received ditiazem with spont. conversion to sinus rhythm during ER evaluation. Started on metoprolol and apixaban. Was hospitalized 11/2018 in [place], with fluttering in her chest and lightheadedness. [...] she is planning to undergo bronchoscopy at [facility]. She gave up on her CPAP machine, as she did not find a way to make the system comfortable. She denies recent chest pain, shortness of breath with ADLs, recent syncope, orthopnea, PND, edema,bleeding. She has chronic constipation issues. She has had hypertension since her 50s, she denies ahistory of [place], diabetes, TIA/CVA, cardiomyopathy, peripheral vascular disease, thyroid disease. She and her recently received Covid booster and flu shots without problems. They are planning to travel to [place] in September and [facility] in December 2021. Data review: Labs 02/15/2019: Creatinine 1.06, estimated GFR 50. Sleep study 12/2018, [facility]: Mild obstructive sleep apnea, not using CPAP. Event monitor ([employer] SEEQ) 10/07/16-11/08/16: Baseline sinus rhythm, daily heart rate average 70-90/min, heart rate spectrum 60-150/, 4 days with documented AF episodes, minutes to a few hours. Echocardiogram, [facility], 09/01/2016: Normal LV size and function, mild LVH, LVEF 65-70%, normal regional wall motion. MAC, moderate focal calcification of the posterior mitral leaflet, mild MR, mildly dilated LA, RV size upper normal limits, low normal RV systolic function, mildly dilated RA, moderateTR, mildly increased PA pressure, 42 mmHg, trivial pericardial effusion. Holter EKG, [facility], 06/2016: Sinus rhythm, rare single PAC, 3 bursts SVT, longest 9 beats, 172/min, no AF. Rare single PVC, no [place]. No bradycardia. No symptoms. Average 1 minute heart rate 88/min, [id number]/min. Chest x-ray, [facility], 08/31/2015: Heart at the upper limits of normal, lungs generally clear, except for some faint reticulonodular densities seen in the right midlung and apex laterally, consistent with radiodensities identified on CT. Chest CT, [facility], 08/30/2016: Market biconvex thoracolumbar scoliosis, scattered [...] 2 times daily. 180 Tab 1 ??? kocssybkwqw-blaulmdqp-ntcdgtrz (TRELEGY ELLIPTA) 100-62.5-25 mcg 1 puff inhaled [...] Medical History Paroxysmal atrial fibrillation, dx 08/2016, [id number] score =4, Started on Flecainide in [place], 11/2018 Cardiac cath, [place], [place] 11/2018: No significant coronary disease Hypertension Hyperlipidemia COPD/emphysema History of renal cancer, status post right nephrectomy 2005 Migraines Family History Mother: 94 yrs, atrial fibrillation Paternal Grand Mother: , angina, from [place] in her 70ies Father passed in 1984. [...] No. 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 Allergies codeine: stomach upset: Side Effects Review [...] Sinus rhythm with first-degree AV delay, 60/min, ID 226 ms, QRS 102 ms, QT 412 ms,incomplete right bundle branch block and L anterior fascicular block. EKG, 06/08/2020: Sinus rhythm with first-degree AV delay and PACs. 71/min, ID 232 ms, QRS 92 ms, QT 398 ms, QTC 432 ms, left anterior fascicular block. EKG 08/12/2021: Sinus bradycardia with sinus arrhythmia and first-degree AV delay, 59/min, ID 244 ms, QRS 88 ms, QT 404 ms, left anterior fascicular block. Assessment & Plan: 1. Paroxysmal atrial fibrillation (HCC-CMS) ([facility]) EKG 12-LEAD 2. Essential hypertension 3. Sleep apnea in adult 4. 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 AF was diagnosed in 08/2016, terminated spontaneously. Her [id number]-WAKr score is 4, anticoagulation with apixaban/Eliquis is [...] Info) Description 02/07/2025 11:15 EDT Office Visit [facility] [address] [place] [address] Yazan Hawk MD [address] [place] [address]-[address] [place] [address] documented as of this encounter Procedures Procedure Name Priority Date/Time Associated Diagnosis Comments ECG REPORT - SCANNED 08/12/2021 11:59 EST EKG 12-LEAD Routine 08/12/2021 10:11 EST Paroxysmal atrial fibrillation (HCC-CMS) (HCC) documented in this encounter Results * ECG REPORT - SCANNED (08/12/2021 11:59 EST) 08/12/2021 11:5 9 EST Scan 2 Stained Glass Joiner PROCEDURE/MINOR MARAH GICAL ORDERABLES * EKG 12-LEAD (08/12/2021 10:11 EST) 08/12/2021 10:1 1 EST Narrative [facility]/12/2021 11:52 EST ? CVC ? Test Date: ?2021-08-12 Pat Name: ? TALITA VELASCO ?Department: ? Room: ? Gender: ? Female ? Mental Health Nurse: ?? KJW : ?1935 ? Requested By: ROSIBEL ACEVEDO RACHEAL Order Number: [id number] ? Reading MD: ?? JUAN ROBLES MD ? Measurements Intervals ?[place] ? Rate: ? 60 ? P: ?71 ID: ? [id number] ?QRS: ?-47 QRSD: ? 80 ? T: ?44 QT: ? 400 ? QTc: ?400 ? Interpretive Statements Sinus rhythm with 1st degree AV block Left anterior fascicular block Left axis deviation Compared to ECG 02/08/2021 10:49:17 No significant change I reviewed the tracing and have either agreed or edited the findings in this report. Electronically Signed On 08-12-2021 11:52:17 EST by JUAN ROBLES MD. Procedure Note Juan Robles MD - 08/12/2021 CVC Test Date: 2021-08-12 Pat Name: TALITA VELASCO Department: Room: Gender: Female Mental Health Nurse: CORINA : 1935 Requested By: ROSIBEL BUTLER Order Number: [id number] Reading MD: JUAN ROBLES MD Measurements Intervals [place] Rate: 60 P: 71 ID: 248 QRS: -47 QRSD: 80 T: 44 QT: 400 QTc: 400 Interpretive Statements Sinus rhythm with 1st degree AV block Left anterior fascicular block Left axis deviation Compared to ECG 02/08/2021 10:49:17 No significant change I reviewed the tracing and have either agreed or edited the findings inthis report. Electronically Signed On 08-12-2021 11:52:17 EST by JUAN DOMINGO. Yazan Hawk MD CARDIAC ECG ORD ERABLES [facility] documented in this encounter Visit Diagnoses Diagnosis Paroxysmal atrial fibrillation (HCC-CMS)- Primary Atrial fibrillation Essential hypertension Unspecified essential hypertension Sleep apnea in adult Current use of termite control service representative anticoagulation Long-term (current) use of anticoagulants senior care current use of antiarrhythmic medical therapy documented in this encounter Care Teams Composite Bond Technician Relationship Specialty Start Date End Date Uyen Gerard MD [address] [place] [phone] PCP - General 02/18/18 Yazan Hawk MD [address] [place] [address] [address] [place] [address] Cardiovascular Disease 08/12/21 documented as of this encounter
--- OUTSIDE RECORDS SUMMARY | 2024-04-26 02:21 | XMS_ITS | Encounter Summary ---
Author Organization [facility] Address [address] [place] [address] Care Team Providers Care Disk Recordist Name Role Phone Uyen Gerard MD Primary Care Provider [phone] Yazan Hawk MD Unavailable [phone] Reason for Visit * Reason Onset Date Comments Medication Management 02/09/2024 Encounter Details Date Type Department Care Team (Late st Contact Info) Description 02/09/2024 Telephone [facility] [address] [place] [address] Yazan Hawk MD [address] [place] [address]-[address] [place] [address] Medication Management Social History Tobacco [...] encounter Miscellaneous Notes * Telephone Encounter - Matias, Zulma - 02/09/2024 6092 EDT Patient called regarding her Eliquis. She was reading through her visit summary and noticed that Dr. Hawk had removed her Eliquis from her medications, but had not replaced it with the lower dose Eliquis (2.5 mg instead of 5 mg). She remembers him mentioning that she can just take half tablets of what she has left until they're out, but she worries that the prescription change may get forgotten, so she's checking up on that. Prescription should be sent to [facility]. Patient's best call back number is RALPH Weston documented in this encounter Plan of Treatment Upcoming Encounters Date Type Department Care Team (Late st Contact Info) Description 02/07/2025 11:15 EDT Office Visit [facility] [address] [place] [address] Yazan Hawk MD [address] [place] [phone] documented as of this encounter Visit Diagnoses Not on filedocumented in this encounter Care Teams Disk Recordist Relationship Specialty Start Date End Date Uyen Gerard MD [address] [place] [phone] PCP - General 02/18/18 Yazan Hawk MD [address] [place] [address] Cardiovascular Disease 08/12/21 documented as of this encounter
--- OUTSIDE RECORDS SUMMARY | 2024-04-26 02:21 | XMS_ITS | Encounter Summary ---
Author Organization [facility] Address [address] [place] [address] Care Team Providers Care Electrical Prospecting Observer Name Role Phone Uyen Gerard MD Primary Care Provider [phone] Kristina Hawk MD Unavailable Reason for Visit * Reason Comments Atrial Fibrillation * Cardiology (Routine/Next Available) - New Request Specialty Diagnoses / Procedures [facility] Referred To Contact Diagnoses PAF (paroxysmal atrial fibrillation) ([facility]) Procedures EKG 12-LEAD Kristina Hawk MD [address] [facility] [address] [place] [address] Referral ID Status Reason Start Date Expiration Date V isits Requested Visits Authorized [id number] New Request 02/21/2022 1 1 Encounter Details Date Type Department Care Team (Latest Contact Info) Description 02/24/2022 9:15 EDT Office Visit [facility] [address] [place] [address] Kristina Hawk MD [address] [facility] [address] [place] [address] PAF (paroxysmal atrial fibrillation) ([facility]) ([facility]) (Primary Dx); Essential hypertension; Mixed hyperlipidemia; 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; Current use of jail anticoagulation; Sleep apnea in adult Social History Tobacco [...] Pressure 112/58 02/24/2022 0909 EDT Pulse 66 02/24/2022908 EDT Temperature - - Respiratory Rate - - Oxygen Saturation 99% 02/24/2022908 EDT Inhaled Oxygen Concentration - - Weight 57.7 kg (127 lb 3.2 oz) 02/24/2022 09 E DT Height 160 cm (5' 3) 02/24/2022908 EDT [...] as of this encounter Progress Notes * Kristina Hawk MD - 02/24/2022 0915 EDT [facility] [place] Subjective: Chief Complaint(s): Atrial Fibrillation HPI: 87-year-old woman with paroxysmal atrial fibrillation, hypertension, hyperlipidemia, COPD, migraines, history of renal cancer status post right nephrectomy 2004. First episode of AF with RVR 08/2016, received ditiazem with spont. conversion to sinus rhythm during ER evaluation. Started on metoprolol and apixaban. Was hospitalized 11/2018 in [place], with fluttering in her chest and lightheadedness. [...] has caused weight loss due to decreased appetite.She further reports that she had a bad cold 2 to 3 weeks ago. She presented to urgent care. She wasCOVID-negative and chest stress x-ray did not show pneumonia. She was started on prednisone and an antibiotic. She states that she was most helped by intensified nebulizer treatment. They had traveled to [facility] and [place] with family in December 2021, which went very well from a physical standpoint She denies recent chest pain, shortness of breath with ADLs, recent syncope, orthopnea, PND, edema,bleeding. She has chronic constipation issues. She has had hypertension since her 50s, she denies ahistory of [place], diabetes, TIA/CVA, cardiomyopathy, peripheral vascular disease, thyroid disease. Shegave up on her CPAP machine, as she did not find a way to make the system comfortable. She and her recently received Covid booster and flu shots without problems. Data review: Labs 02/15/2019: Creatinine 1.06, estimated GFR 50. Sleep study 12/2018, [facility]: Mild obstructive sleep apnea, not using CPAP. Event monitor ([employer] SEEQ) 10/07/16-11/08/16: Baseline sinus rhythm, daily heart rate average 70-90/min, heart rate spectrum 60-150/, 4 days with documented AF episodes, minutes to a few hours. Echocardiogram, [facility], 09/01/2016: Normal LV size and function, mild LVH, LVEF 65-70%, normal regional wall motion. MAC, moderate focal calcification of the posterior mitral leaflet, mild MR, mildly dilated LA, RV size upper normal limits, low normal RV systolic function, mildly dilated RA, moderateTR, mildly increased PA pressure, 42 mmHg, trivial pericardial effusion. Holter EKG, [facility], 06/2016: Sinus rhythm, rare single PAC, 3 bursts SVT, longest 9 beats, 172/min, no AF. Rare single PVC, no [place]. No bradycardia. No symptoms. Average 1 minute heart rate 88/min, [id number]/min. Chest x-ray, [facility], 08/31/2015: Heart at the upper limits of normal, lungs generally clear, except for some faint reticulonodular densities seen in the right midlung and apex laterally, consistent with radiodensities identified on CT. Chest CT, [facility], 08/30/2016: Market biconvex thoracolumbar scoliosis, [...] TWICE A DAY 180 Tablet 3 ??? mtqlaxuzdrs-zjpnznbmo-wvhpjlpz (TRELEGY ELLIPTA) 100-62.5-25 mcg 1 puff inhaled [...] Tablets by mouth daily. (Patient not taking: Reported on 02/24/2022) 30 Tablet 0 ??? spironolactone (ALDACTONE) 25 mg tablet Take 25 mg by mouth daily. ??? SUMAtriptan (IMITREX) 50 mg tablet Take 50 mg by mouth. No current facility-administered medications for this visit. Past Medical History Paroxysmal atrial fibrillation, dx 08/2016, OHD9PN2-NGQy score =4, Started on Flecainide in [place], 11/2018 Cardiac cath, [place], [place] 11/2018: No significant coronary disease Hypertension Hyperlipidemia COPD/emphysema History of renal cancer, status post right nephrectomy 2005 Migraines Family History Mother: 94 yrs, atrial fibrillation Paternal Grand Mother: , angina, from [place] in her 70ies Father passed in 1984. [...] learning? No. 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 Allergies codeine: stomach upset: Side Effects [...] Sinus rhythm with first-degree AV delay, 60/min, NV 226 ms, QRS 102 ms, QT 412 ms,incomplete right bundle branch block and L anterior fascicular block. EKG, 06/08/2020: Sinus rhythm with first-degree AV delay and PACs. 71/min, NV 232 ms, QRS 92 ms, QT 398 ms, QTC 432 ms, left anterior fascicular block. EKG 08/12/2021: Sinus bradycardia with sinus arrhythmia and first-degree AV delay, 59/min, NV 244 ms, QRS 88 ms, QT 404 ms, left anterior fascicular block. EKG 02/24/2022: Sinus rhythm with first-degree AV delay, 78/min, NV 248 ms, QRS 76 ms, QT 392 ms, QTC 446 ms, left anterior fascicular block. Recent labs, [facility], 02/14/2022: Glucose 94, BUN 29, creatinine 0.98, sodium 127, potassium 4.8, chloride 89, CO2 30, anion gap 8, calcium 9.6, GFR 53, urine sodium 41 Assessment & Plan: 1. PAF (paroxysmal atrial fibrillation) ([facility]) ([facility]) EKG 12-LEAD 2. Essential hypertension 3. Mixed hyperlipidemia 4. 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 Current use of jail anticoagulation 6. Sleep apnea in adult 86-year-old woman with paroxysmal atrial fibrillation, hypertension, hyperlipidemia, COPD, migraines, history of renal cancer status post right nephrectomy 2004. AF was diagnosed in 08/2016, terminated spontaneously. Her OZE6OA7-DFMl score is 4, anticoagulation with apixaban/Eliquis is [...] again. Encouraged her to increase regular exercise.. Kristina Hawk MD documented in this encounter Plan of Treatment Upcoming Encounters Date Type Department Care Team (Late st Contact Info) Description 02/07/2025 11:15 EDT Office Visit [facility] [address] [place] [address] Kristina Hawk MD [address] [place] [address]-[address] [place] [phone] documented as of this encounter Procedures Procedure Name Priority Date/Time Associated Diagnosis Comments ECG REPORT - SCANNED 02/24/2022 11:27 EDT EKG 12-LEAD Routine 02/24/2022 9:18 EDT PAF (paroxysmal atrial fibrillation) ([facility]) ([facility]) documented in this encounter Results * ECG REPORT - SCANNED (02/24/2022 11:27 EDT) 02/24/2022 11:2 7 EDT Scan 2 Dog Food Dough Mixer PROCEDURE/MINOR MARAH GICAL ORDERABLES * EKG 12-LEAD (02/24/2022 9:18 EDT) 02/24/2022 9:18 EDT Narrative [facility] - 02/24/2022 11:24 EDT ? CVC ? Test Date: ?2022-02-24 Pat Name: ? TALITA VELASCO ?Department: ? Room: ? Gender: ? Female ? Foundry Engineer: ?? [place] : ?1935 ? Requested By: ROSIBEL KRISTINA RACHEAL Order Number: [id number] ? Reading MD: ?? AGAPITO XAVIER MD ? Measurements Intervals ?[place] ? Rate: ? 78 ? P: ? NV: ? 248 ?QRS: ?-44 QRSD: ? 76 ? T: ?32 QT: ? 392 ? QTc: ?446 ? Interpretive Statements Sinusrhythm 1st degree AV block Left anterior fascicular block Compared to ECG 08/12/2021 10:11:02 No significant changes I reviewed the tracing and have either agreed or edited the findings in this report. Electronically Signed On 02-24-2022 11:24:49 EDT by AGAIPTO XAVIER MD. Procedure Note Agapito Xavier MD - 02/24/2022 CVC Test Date: 2022-02-24 Pat Name: TALITA VELASCO Department: Room: Gender: Female Foundry Engineer: [place] : 1935 Requested By: ROSIBEL BUTLER Order Number: [id number] Reading MD: AGAPITO XAVIER MD Measurements Intervals [place] Rate: 78 P: NV: 248 QRS: -44 QRSD: 76 T: 32 QT: 392 QTc: 446 Interpretive Statements Sinusrhythm 1st degree AV block Left anterior fascicular block Compared to ECG 08/12/2021 10:11:02 No significant changes I reviewed the tracing and have either agreed or edited the findings inthis report. Electronically Signed On 02-24-2022 11:24:49 EDT by AGAPITO EL. 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
--- OUTSIDE RECORDS SUMMARY | 2024-04-26 02:21 | XMS_ITS | Encounter Summary ---
Author Organization [facility] Address [address] [place] [address] Care Team Providers Care Retail Visual Merchandiser Name Role Phone Uyen Gerard MD Primary Care Provider [phone] Reason for Visit * Reason Onset Date Comments Atrial Fibrillation 08/07/2020 recent episo dhaval of a fib Encounter Details Date Type Department Care Team (Late st Contact Info) Description 08/07/2020 Telephone [facility] [address] [place], [place] [phone] Yazan Hawk MD [address] [facility] [address] [place] [address] Atrial Fibrillation (recent episodes of a fib) Social History Tobacco Use Types Packs/Day Years [...] encounter Miscellaneous Notes * Telephone Encounter - Yazan Hawk MD - 08/24/2020 1957 EST Another call attempt with message. ARYA * Telephone Encounter - Yazan Hawk MD - 08/24/2020 1342 EST Called and left another message. JM * Telephone Encounter - Yazan Hawk MD - 08/23/2020 1616 EST Called and left message. JM * Telephone Encounter - Megha Shetty RN [...] would like to discuss changes with you. * Telephone Encounter - Hamzah Kim RN - 08/07/2020 1535 EST Pt has appt 08/08/20. Routing to for FYI. * Telephone Encounter - [place] - 08/07/2020 1331 EST Pt has had more episodes of A-fib. She had one episode on 07/13 which lasted about a minute. Her BP was 166/97. A-Fib on 07/22 with a BP of 146/74, 07/23, and also today. This morning her BP was 135/79. At 1:25pm today, her BP was 124/70. Pt has an appt tomorrow with Dr. Hawk. She is just concernedabout the increase in A-Fib. documented in this encounter Plan of Treatment Upcoming Encounters Date Type Department Care Team (Late st Contact Info) Description 02/07/2025 11:15 EDT Office Visit [facility] [address] [place] [address] Yazan Hawk MD [address] [facility] [address] [place] [phone] documented as of this encounter Visit Diagnoses Not on filedocumented in this encounter Care Teams Retail Visual Merchandiser Relationship Specialty Start Date End Date Uyen Gerard MD [address] [phone] PCP - General 02/18/18 documented as of this encounter
--- OUTSIDE RECORDS SUMMARY | 2024-04-26 02:21 | XMS_ITS | Encounter Summary ---
Author Organization [facility] Address [address] [place] [address] Care Team Providers Care Manager Lean Name Role Phone Uyen Gerard MD Primary Care Provider [phone] Yazan Hawk MD Unavailable [phone] Reason for Visit * Reason Comments Other Encounter Details Date Type Department Care Team (Late st Contact Info) Description [facility] [address] [place] [address] Yazan Hakw MD [address] [facility] [address] [place] [address] Other Social History Tobacco Use [...] TAKE 1 TABLET TWICE A DAY 180 Tab 3 10/02/2020 09/27/2021 documented in this encounter Plan of Treatment Upcoming Encounters Date Type Department Care Team (Late st Contact Info) Description 02/07/2025 11:15 EDT Office Visit [facility] [address] [place] [address] Yazan Hawk MD [address] [place] [phone] documented as of this encounter Visit Diagnoses Not on filedocumented in this encounter Discontinued Medications Medication Sig Discontinue Reason Start Date End Da te flecainide (TAMBOCOR) 50 mg tablet Take 1 Tab by mouth 2 times daily. 03/29/2020 10/02/2020 documented as of this encounter Care Teams Manager Lean Relationship Specialty Start Date End Date Uyen Gerard MD [address] [place] [phone] PCP - General 02/18/18 Yazan Hawk MD [address] [place] [phone] Cardiovascular Disease 08/12/21 documented as of this encounter
--- OUTSIDE RECORDS SUMMARY | 2024-04-26 02:21 | XMS_ITS | Encounter Summary ---
Author Organization [facility] [place] [address] Care Team Providers Care Geology Teacher Name Role Phone Michael Perez MD Primary Care Provider Encounter Details Date Type Department Care Team (Late st Contact Info) Description 04/25/2011 10:45 AM EDT Office Visit CAT Scan at [address] [phone] Social History Tobacco Use Types [...] 4:30 PM EDT Office [place] [phone] Carmelina Donaldson MD [facility] [place] [address] 05/31/2024 1:00 PM EDT [place]ointment [place] [phone] documented as of this encounter Procedures Procedure Name Priority Date/Time Associated Diagnosis Comments CT CHEST, ABDOMEN, PELVIS WO CONTRAST Routine 04/25/2011 10:58 AM EDT documented in this encounter Results * CT CHEST, ABDOMEN, PELVIS WO CONTRAST (04/25/2011 10:58 AM EDT) Anatomical Region Laterality Modality Computed Tomogra phy 04/25/2011 10:5 8 AM EDT Impressions 04/25/2011 4:29 PM EDT IMPRESSION: Chronic interstitial/coarse reticular changes in both lungs as described, similar in distribution except for a new confluent nodular pleural abnormality present with dimensions as described above. ??No other changes are apparent. ABDOMEN AND PELVIS CT Axial multidetector helical images were obtained from the level of the hemidiaphragms to the symphysis following oral contrast material. ??No intravenous contrast material was utilized at the request of Dr. Sorenson. The liver and biliary ducts are unremarkable. ??There are multiple calcified gallstones present within the gallbladder. ??There has been a prior right nephrectomy performed. ??The left kidney and visualized bowel are normal. ??There are multiple small calcified uterine fibroids present, similar to the prior study. ??No other abnormalities are seen. ??The bony skeleton is normal. IMPRESSION: 1. ??Postoperative changes status post left nephrectomy without change. 2. ??Cholelithiasis. 3. ??Uterine fibroids. 4. ??Otherwise negative abdominal CT scan. 5. ??Otherwise negative pelvic CT scan. Bismark Marx M.D./RI383 Doc #:[id number] D: ??04/25/2011 T: ??04/25/2011 3:09 PM Narrative 04/25/2011 4:29 PM EDT REASON FOR EXAM: ??staging for renal cancer UNENHANCED CHEST CT SCAN Clinical Information: ??Followup of renal cancer. Axial multidetector helical images were obtained from the level of the thoracic inlet to the hemidiaphragms without contrast material and compared to the prior studies of 04/09/09 and 03/20/10. There is evidence of coarse reticular change in the right middle lobe, laterally in the right lower lobe, and in the axillary segment of the right upper lobe which appears similar to the prior studies given differences in technique. ??No suspicious, new parenchymal nodules are present. ??There is a more confluent nodular area present along the pleural surface of the right middle lobe which measures approximately 17 mm in maximal diameter. ??No other definite pulmonary abnormalities are present. ??The lack of contrast material limits evaluation of the mediastinum, but no definite mediastinal or hilar adenopathy is present and the bony thorax appears intact. ??No other abnormalities are apparent. 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 Procedure Note Bismark Marx MD - 04/25/2011 REASON FOR EXAM: staging for renal cancer UNENHANCED CHEST CT SCAN Clinical Information: Followup of renal cancer. Axial multidetector helical images were obtained from the level of thethoracic inlet to the hemidiaphragms without contrast material and compared to theprior studies of 04/09/09 and 03/20/10. There is evidence of coarse reticular change in the right middle lobe, laterally in the right lower lobe, and in the axillary segment of theright upper lobe which appears similar to the prior studies given differencesin technique. No suspicious, new parenchymal nodules are present. There laurel more confluent nodular area present along the pleural surface of theright middle lobe which measures approximately 17 mm in maximal diameter. Noother definite pulmonary abnormalities are present. The lack of contrastmaterial limits evaluation of the mediastinum, but no definite mediastinal orhilar adenopathy is present and the bony thorax appears intact. No other abnormalities are apparent. Scoliotic curvature of the thoracolumbarspine is again noted. IMPRESSION IMPRESSION: Chronic interstitial/coarse reticular changes in both lungs asdescribed, similar in distribution except for a new confluent nodular pleuralabnormality present with dimensions as described above. No other changes areapparent. ABDOMEN AND PELVIS CT Axial multidetector helical images were obtained from the level of the hemidiaphragms to the symphysis following oral contrast material. No intravenous contrast material was utilized at the request of Dr. Sorenson. The liver and biliary ducts are unremarkable. There are multiplecalcified gallstones present within the gallbladder. There has been a prior right nephrectomy performed. The left kidney and visualized bowel are normal.There are multiple small calcified uterine fibroids present, similar to theprior study. No other abnormalities are seen. The bony skeleton is normal. IMPRESSION: 1. Postoperative changes status post left nephrectomy without change. 2. Cholelithiasis. 3. Uterine fibroids. 4. Otherwise negative abdominal CT scan. 5. Otherwise negative pelvic CT scan. Bismark Marx M.D./[id number] Doc #:[id number] Mirta Sorenson MD IMG CT ORDERABLES documented in this encounter Visit Diagnoses Not on filedocumented in this encounter Care Teams Geology Teacher Relationship Specialty Start Date End Date Michael Perez MD PCP - General 04/24/11 03/10/13 documented as of this encounter
--- OUTSIDE RECORDS SUMMARY | 2024-04-26 02:21 | XMS_ITS | Referral Summary ---
Author Organization [facility]: [facility] Address [facility] [phone] [place] [address] Care Team Providers Care Forestry Extension Specialist Name Role Phone Uyen Gerard MD Primary Care Provider [phone] Encounters Date Type Department Care Team Description 02/15/2024 Refill [facility] [place] [address] [facility] [address] [place] [phone] Gladys England MD Refill/Eprescribe from Last 3 Months Allergies Active Allergy [...] Take 100 mg by mouth DAILY. Active Mari[place]-3 Fatty Acids (FISH OIL) 1000 MG Oral [...] Active Active Problems No known active problems Social History Tobacco Use Types Packs/Day Years [...] [facility] [place] [address] [facility] [address] [place] [address] Gladys England MD [address] [place] [address] Care Teams Forestry Extension Specialist Relationship Specialty Start Date End Date Uyen Gerard MD [facility] [place] [address] PCP - General Family Medicine 08/27/21
--- OUTSIDE RECORDS SUMMARY | 2024-04-26 02:22 | XMS_ITS | Encounter Summary ---
Author Organization [facility]: [facility] Address [facility] [phone] [place] [address] Care Team Providers Care Technician Chemical Cleaning Name Role Phone Uyen Gerard MD Primary Care Provider Reason for Visit * Reason Onset Date Comments Medication Question 09/02/2023 Encounter Details Date Type Department Care Team (Late st Contact Info) Description 09/02/2023 Telephone [facility] [address] [place] [phone] Gladys England MD [address] [place] [phone] Medication Question Social History Tobacco Use Types Packs/Day Years [...] encounter Miscellaneous Notes * Telephone Encounter - Jolene Quezada Fixed Income Trading Vice President. - 09/03/2023 9:47 AM EST Called and relayed message from Dr. England. She understands and will follow up in September. * Telephone Encounter - Gladys England MD - 09/03/2023 8:53 AM EST Stop the alphagan and see how she improves in terms of symptoms. She should keep the September appt and we can discuss at that time an alternative for lowering IOP * Telephone Encounter - Katt Lovett - 09/02/2023 3:13 PM EST Rec'd call from Dr. Earl's office ([facility] [phone]) stating that the patient came in for an appointment and was experiencing an allergic reaction to the Alphagan. Please reach out to patient with an alternative. documented in this encounter Plan of Treatment Upcoming Encounters Date Type Department Care Team (Late st Contact Info) Description 06/08/2024 10:40 AM EDT Eye Care Visit [facility] [place] [address] [facility] [address] [place] [address] Gladys England MD [address] [place] [phone] documented as of this encounter Visit Diagnoses Not on filedocumented in this encounter Care Teams Technician Chemical Cleaning Relationship Specialty Start Date End Date Uyen Gerard MD [facility] [place] [address] PCP - General Family Medicine 08/27/21 documented as of this encounter
--- OUTSIDE RECORDS SUMMARY | 2024-04-26 02:22 | XMS_ITS | Encounter Summary ---
Author Organization [facility]: [facility] Address [facility] [phone] [place] [address] Care Team Providers Care Lan Manager Name Role Phone Uyen Gerard MD Primary Care Provider [phone] Reason for Visit * Reason Comments Follow-up Evaluation For Glaucoma Encounter Details Date Type Department Care Team (Latest Contact Info) Description 09/30/2023 9:00 AM EST Eye Care Visit [facility] [place] [address] [facility] [address] [place] [phone] Gladys England MD [address] [place] [address] Pseudoexfoliative glaucoma, both eyes, moderate stage (Primary Dx); Combined form of senile cataract of both eyes Social History Tobacco Use Types Packs/Day Years Used Date Smoking Tobacco: Never Smokeless Tobacco: Never Alcohol Use Standard Drinks/Week Comments Yes 0 (1 standard drink = 0.6 oz pur e alcohol) Sex and Gender Information Value Date Recorded Sex Assigned at Not on file Gender Identity Not on file Sexual Orientation Not on file documented as of this encounter Progress Notes * Gladys England MD - 09/30/2023 9:00 AM EST Chief Complaint: Patient presents with: Follow-up Evaluation For Glaucoma History of Present Illness: Patient presents in office for a glaucoma follow-up. When she was seen at the principal technologist she was concerned about the appearance of her eyes so she went and had allergy testing done(with her daughter, an ip architect). The results showed no allergy to Latanoprost and Alphagan. She has been off of the Alphagan for a month and her eyes feel better, but she I worried about her eye pressure. She did get a new Rx for alphagan but hasnt used it and reports her eyes and skin feel better. She struggles with glare at night so she doesn't drive at night. Her was her truck driver and he a few months ago. Patient oriented to person, place and time: Yes Mood and affect: NORMAL General Medical Appearance: NORMAL Pupillary dilation: None ( ) Baselines Right Left Highest IOP 20s? mmHg 20s? mmHg Pachymetry 526 ? 547 ? Gonioscopy Gonioscopy performed in 11/26/21 Right: Open to CBB in all quadrants. Moderate pigmentation. No synechiae. Left: Open to CBB in all quadrants. Heavy pigmentation. There is a Sampoelesi line OCT Spectralis: 68 ?? (Q = 23) Spectralis: 66 ?? (Q = 25) Target Pressure ? 14-16mmHg ? 14-16mmHg Examination Right Left Visual Acuity 20/30 20/30-2 Pinhole Vision 20/NI 20/NI Intraocular Pressure 16 mmHg 21 mmHg External The pupils are normal (no APD). The lids and ocular adnexa are normal. Ocular motility is full. Anterior Segments The conjunctivae and corneae are normal. The anterior chambers are deep. The irides are normal. Right eye has early nasal band K Lens 2-3+NS/CC 2-3+NS/CC - PXE on anterior capsule and pupil margin Vitreous Normal Normal Optic Nerve Cupping is estimated at 80% thinning to the rim inferiorly. No disc hemorrhage Cupping is estimated at 85% loss of inferior rim and inferior pit. No disk heme Retina Normal Normal OCT RNFL (06-10-2023) Spectralis: 70 ?? (Q = 31) - severe IT thinning Spectralis: 65 ?? (Q = 32) - Moderate temporal thinning; severe ST and IT thinning OCT RGCL (06-10-2023) RGCL volume = 0.84 mm3 - Inferotemporal loss RGCL volume = 0.68 mm3 - Inferiorloss Visual Burnham (5-24-23) TRUNG 24-2: 2/11FLs, superior arcuate depression MD-4.39 TRUNG 24-2: 2/12FLs, dense superior arcuate nearly altitudinal defect MD-15.31 Visual Burnham (09/30/2023) TRUNG 10-2: Baseline - superior arcuate depression not yet to fixation MD-1.60 TRUNG 10-2: Baseline - dense superior arcuate not yet up to fixation MD-10.12 Pachymetry ? Confrontation VF Full Other (ST/SN defect) Fundus photo (03/26/22) Glaucomatous cupping noted, no disc heme noted Glaucomatous cupping noted, no disc heme noted Impression: 1. 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 IOP is at target OD today, OS increased after stopping alphagan due to topical allergy. No disc noted in the right eye today. Her VF remains the same. - Disk heme OD (06-10-2023) - No family hx - Avg CCT - Hx of COPD, avoid beta-blockers - Allergy to Alphagan (Skin rash, eye irritation) 2. Bilateral cataracts - becoming more visually significant to patient; glare at night, trouble reading. Disposition: 1. We discussed the natural history of glaucoma and the risk factors as above, including both the disease and treatment options. Glaucoma is a chronic progressive condition that we do not cure, and therefore it needs to be monitored to ensure that our treatment of it is adequate, as in some cases it causes severe vision loss. 2. Medications - Xalatan, both eyes at bedtime --she will call us if she has trouble obtaining a bottle from the local pharmacy while she is waiting for the mail order to arrive. - STOP Alphagan--her symptoms have resolved and this indicates allergy more than patch testing of skin - Start Dorzolamide BID OU 3. Follow up with me in 4-6 weeks for IOP check Notes to: -[facility] in [place], [place] Performed and dictated by Dr. Gladys England to scribe Luis Trevizo No annotated images are attached to the encounter. documented in this encounter Plan of Treatment Upcoming Encounters Date Type Department Care Team (Late st Contact Info) Description 06/08/2024 10:40 AM EDT Eye Care Visit [facility] [place] [address] [place] [address] Gladys England MD [address] [place] [address] documented as of this encounter Visit Diagnoses Diagnosis Pseudoexfoliative glaucoma, both eyes, moderate stage- Primary Combined form of senile cataract of both eyes documented in this encounter Care Teams Lan Manager Relationship Specialty Start Date End Date Uyen Gerard MD [address] [place] [address] [place] [address] PCP - General Family Medicine 08/27/21 documented as of this encounter
--- OUTSIDE RECORDS SUMMARY | 2024-04-26 02:22 | XMS_ITS | Encounter Summary ---
Author Organization [facility]: [facility] Address [facility] [phone] [place] [address] Care Team Providers Care Gusset Maker Name Role Phone Unavailable Primary Care Provider Bar e Encounter Details Date Type Department Care Team (Late st Contact Info) Description 01/29/2016 [facility] Oncology and Hematology [address] [place] [phone] Social History Tobacco Use Types Packs/Day Years [...] documented in this encounter Progress Notes * Mirta Sorenson MD - 01/29/2016 3:19 PM EDT [facility] Hematology / Oncology TALITAANGELICA VELASCO was seen today for follow up. [...] her last visit, she has had no newdiagnoses or new surgical procedures;however, Overall blood pressure control has been better this year--on amlodipine and Norvasc;Fatigue and functionality are unchanged from one year ago; Previously she had a left ankle fracture which needed internal fixation in July 2013 while traveling from [place] to [place]; She was previously seen by Dr. Ming Carter in pulmonary medicine and has been diagnosed to havemild to moderate COPD for which she is using Spireva with good control of symptoms;Functionality has improved; No family member has been diagnosed with cancer;She continues to feel well with no othersymptoms.She and her have now permanently moved to [place]. She now has a primary care physician at [place], [place].She is also planning to move her pulmonary care to [place]; . Oncologic/Hematologic History: Patient was diagnosed in September of 2004 with right-sided renal cancer. She presented with abdominal discomfort. She initially had angioinfarction in August of 2004 because of the large size of thetumor. Then she had a surgical resection in September of 2004 for a 16 cm primary, pT 2, pN O. chromophobe type. CT scans of the chest and abdomen done in March of 2005 at the [facility] revealed a small 3 mm subpleural [...] her 70s of unclear cause; one maternal auntdied at 16 of sepsis after a knee infection. Patient is an only child; She has 3 daughters-ages 56, 54 and 50 and 7 grandchildren. 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 She has no tinnitus, deafness or vertigo; she denies any problems swallowing. She has no angina or palpitations, dizziness or diaphoresis; she has no shortness of breath at rest on exertion; stable mild shortness ofbreath with climbing inclines is stablle; she has [...] or tarry stools. She has no swelling ofthe extremities; she has no rash or skin changes; she has no bleeding or bruising tendency; she hasno joint swelling. She has no fever chills or rigor; she has no loss of weight or appetite; she is d oing well emotionally.Fatigue Is present but unchanged and not limiting functionality;She has a left ankle swelling that is now more permanent since the ankle fracture; Patient had planned [facility] --I did not enquire; [...] Please provide one pair of thigh-high compression [id number] mm mercury AMLODIPINE BESYLATE 10 MG TABS [...] or guarding. Liver and spleen are not palpable.There are no abdominal masses. Bowel sounds are [...] a 1 cm flat mole on the dorsum of the left foot;Unchanged; Cervical Nodes: . Inguinal [...] NEUT %: 57 - 01/08/2016 LYMPHS %: 29 - 01/08/2016 MONOCYTE %: 10 - 01/08/2016 [...] - AST: 27 - 01/08/2016 ALT: 29 - 01/08/2016 Total Bilirubin: 0.5 - 01/08/2016 Direct [...] Please provide one pair of thigh-high compression qocilgfyf-78-18 mm mercury AMLODIPINE BESYLATE 10 MG TABS [...] new symptoms. The patient is moving to [place], I again suggested that she switch her oncologic care to the [facility].She will think about [...] patient receives all her primary care in [place]-primary care issues like screening, vaccinationand health maintenance issues are deferred to her PCP; CC: Uyen Gerard MD documented in this encounter Plan of Treatment Upcoming Encounters Date Type Department Care Team (Late st Contact Info) Description 06/08/2024 10:40 AM EDT Eye Care Visit [facility] [place] [address] [facility] [address] [place] [address] Gladys England MD [address] [place] [phone] documented as of this encounter Visit Diagnoses Not on filedocumented in this encounter
--- OUTSIDE RECORDS SUMMARY | 2024-04-26 02:22 | XMS_ITS | Encounter Summary ---
Author Organization [employer]: [facility] & [facility] Care Address [facility] [phone] [place] [address] Care Team Providers Care Barrel Loader Name Role Phone Uyen Gerard MD Primary Care Provider [phone] Reason for Visit * Reason Comments Follow-up Evaluation For Glaucoma Encounter Details Date Type Department Care Team (Latest Contact Info) Description 09/03/2022 11:00 AM EST Eye Care Visit [facility] [place] 17 [facility] [address] [place] [phone] Gladys England MD [address] [place] [address] Pseudoexfoliative glaucoma, both eyes, moderate stage (Primary [...] Progress Notes * Gladys England MD - 09/03/2022 11:00 AM EST Chief Complaint: Patient presents with: Follow-up Evaluation For Glaucoma History of Present Illness: Patient presents in office for a glaucoma follow-up. Patient states that her vision has remained stable. Denies any pain or irritation. Compliant with her drops. She has been noticing that when she is at the bottom of her Xalatan bottle, the drops start to sting. Patient oriented to person, place and time: [...] ? 14-16mmHg Examination Right Left Visual Acuity 20/30+1 20/40+1 Pinhole Vision 20/20-1 20/25-1 Intraocular Pressure 13 mmHg 14 mmHg External The pupils are normal (no [...] disk heme Retina Normal Normal OCT RNFL (03-26-22) Spectralis: 70 ?? (Q = 31) - moderate nasal severe IT thinning Spectralis: 65 ??(Q = 32) - Moderate temporal thinning; poss progressive thinning ST and IT OCT RGCL (03-26-22) RGCL volume = 0.85 mm3 - Inferotemporal loss RGCL volume = 0.69 mm3 - Inferior loss Visual Burnham (11-26-21) TRUNG 24-2: 11/11FLs, superior arcuate depression - Baseline MD-3.74 2/14FLs, dense superior arcuate nearly altitudinal defect - Baseline. MD-13.01 Visual Burnham (09-03-22) TRUNG 10-2: Baseline - superior arcuate depression not yet to fixation MD-2.12 TRUNG 10-2: Baseline - dense superior arcuate not yet up to fixation MD-8.28 Pachymetry ? Confrontation VF Full Other (superior HM, inferior full) Fundus photo (03/26/22) Glaucomatous cupping noted, no disc heme noted Glaucomatous cupping noted, no disc heme noted Impression: 1. 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 IOP is below target OU today. Baseline VF 10-2 is consistent with previous testing with central sparing left eye. Will continue current drop regimen. - No family hx - Avg CCT [...] eyes at bedtime - Alphagan P 0.1%, both eyes 2x daily 3. Follow up with me in 4-5 months for IOP check VF 24-2 OU Notes to: -Yamileth Singh, OD Performed and dictated by Dr. Gladys England to scribe Roe Jin No annotated images are attached to the encounter. * Amee Pacheco - 09/03/2022 11:00 AM EST Patient states her eyes becoming blurry and strained. Feels she may to visit her Mold Carrier. Latanoprost franco when the bottle is almost empty. Compliant with Alphagan and Latanoprost. documented in this encounter Plan of Treatment Upcoming Encounters Date Type Department Care Team (Late st Contact Info) Description 06/08/2024 10:40 AM EDT Eye Care Visit [facility] 17 [facility] [address] [place] [address] Gladys England MD [address] [place] [address] documented as of this encounter Visit Diagnoses Diagnosis Pseudoexfoliative glaucoma, both eyes, moderate stage- Primary Combined form of senile cataract of both eyes documented in this encounter Care Teams Barrel Loader Relationship Specialty Start Date End Date Uyen Gerard MD [facility] [place] [address] [address] PCP - General Family Medicine 08/27/21 documented as of this encounter
--- OUTSIDE RECORDS SUMMARY | 2024-04-26 02:22 | XMS_ITS | Encounter Summary ---
Author Organization [employer]: [facility] & [facility] Care Address [facility] [phone] [place] [address] Care Team Providers Care Medical Massage Therapist Name Role Phone Uyen Gerard MD Primary Care Provider [phone] Reason for Visit * Reason Onset Date Comments Appt Needed 08/14/2023 Encounter Details Date Type Department Care Team (Late st Contact Info) Description 08/14/2023 [facility] [address] [place] [phone] Gladys England MD [address] [place] [address] Appt Needed Social History Tobacco Use Types Packs/Day Years [...] encounter Miscellaneous Notes * Telephone Encounter - Lucie Gerardo - 08/17/2023 9:51 AM EST Patient called and I informed her that we cannot accommodate the week of 09/20. Patient will be keeping appt on 09/[address] England at [facility]. * Telephone Encounter - Lucie Gerardo - 08/14/2023 4:57 PM EST LVM asking patient to call back. * Telephone Encounter - Roe Jin - 08/14/2023 4:08 PM EST We are unable to get her in on 09/23 as has a full morning and there are slots on hold for post ops already * Telephone Encounter - Katt Lovett - 08/14/2023 3:56 PM EST Patient called in wanting to reschedule her 09/[address] England to [place] between 09/19 and 09/24. Dr. England is only there on 09/23 - please advise on whether or not the patient can besqueezed in somewhere that morning. Return for Follow up with me in 3-4 months for IOP check and VF 10-2 OU . documented in this encounter Plan of Treatment Upcoming Encounters Date Type Department Care Team (Late st Contact Info) Description 06/08/2024 10:40 AM EDT Eye Care Visit [facility] [place] [address] [facility] [address] [place] [address] Gladys England MD [address] [place] [address] documented as of this encounter Visit Diagnoses Not on filedocumented in this encounter Care Teams Medical Massage Therapist Relationship Specialty Start Date End Date Uyen Gerard MD [facility] [address] [address] PCP - General Family Medicine 08/27/21 documented as of this encounter
--- OUTSIDE RECORDS SUMMARY | 2024-04-26 02:22 | XMS_ITS | Encounter Summary ---
Author Organization [employer]: [facility] & [facility] Care Address [facility] [phone] [place] [address] Care Team Providers Care Wax Room Supervisor Name Role Phone Uyen Gerard MD Primary Care Provider [phone] Reason for Visit * Reason Onset Date Comments Referral 08/26/2021 Encounter Details Date Type Department Care Team (Late st Contact Info) Description 08/26/2021 Telephone [facility] [address] [place] [phone] Gladys England MD [address] [place] [address] Referral Social History Tobacco Use Types Packs/Day Years Used Date Smoking Tobacco: Never Assessed Sex and Gender Information Value Date Recorded Sex Assigned at Not on file Gender Identity Not on file Sexual Orientation Not on file documented as of this encounter Miscellaneous Notes * Telephone Encounter - Pallavi Rosas Can Closing Machine Operator. - 08/27/2021 10:37 AM EST I called and scheduled patient for 11/[address] england in [place] * Telephone Encounter - Steph Rollins - 08/26/2021 3:07 PM EST Notes received from: Dr Lanier Referral for: glaucoma eval Notes scanned into media Please call patient to schedule appointment with Dr. England and update demographic information. documented in this encounter Plan of Treatment Upcoming Encounters Date Type Department Care Team (Late st Contact Info) Description 06/08/2024 10:40 AM EDT Eye Care Visit [facility] 17 [facility] 104 [place] [address] Gladys England MD [address] [place] [address] documented as of this encounter Visit Diagnoses Not on filedocumented in this encounter Care Teams Wax Room Supervisor Relationship Specialty Start Date End Date Uyen Gerard MD [address] [place] [address] [place] [address] PCP - General Family Medicine 08/27/21 documented as of this encounter
--- OUTSIDE RECORDS SUMMARY | 2024-04-26 02:22 | XMS_ITS | Encounter Summary ---
Author Organization [employer]: [facility] & [facility] Care Address [facility] [phone] [place] [address] Care Team Providers Care Business System Manager Name Role Phone Unavailable Primary Care Provider Unavailabl e Encounter Details Date Type Department Care Team (Late Contact Info) Description 12/15/2011 8:52 AM EDT Hospital Encounter [facility] Laboratory Services [address] [place] [address] Social History Tobacco Use Types Packs/Day Years Used Date Smoking Tobacco: Never Assessed Sex and Gender Information Value Date Recorded Sex Assigned at Not on file Gender Identity Not on file Sexual Orientation Not on file documented as of this encounter Plan of Treatment Upcoming Encounters Date Type Department Care Team (Late Contact Info) Description 06/08/2024 10:40 AM EDT [facility] [place] 17 [facility] [address] [place] [address] Gladys England MD [address] [place] [address] documented as of this encounter Visit Diagnoses Not on filedocumented in this encounter
--- OUTSIDE RECORDS SUMMARY | 2024-04-26 02:22 | XMS_ITS | Encounter Summary ---
Author Organization [employer]: [facility] & [facility] Care Address [facility] [phone] [place] [address] Care Team Providers Care Flight Agent Name Role Phone Unavailable Primary Care Provider Unavailabl e Encounter Details Date Type Department Care Team (Late Contact Info) Description 03/07/2020 9:00 AM EDT Hospital Encounter [facility] Laboratory Services [address] [place] [address] Social History Tobacco Use Types Packs/Day Years [...] [facility] 17 [facility] [address] [place] [address] Gladys England MD [address] [place] [address] documented as of this encounter Procedures Procedure Name Priority Date/Time Associated Diagnosis Comments LACTATE DEHYDROGENASE Routine 03/07/2020 12:46 PM EDT COMPREHENSIVE METABOLIC PANEL Routine 03/07/2020 12:46 PM EDT URINALYSIS, MICROSCOPY ONLY Routine 03/07/2020 12:46 PM EDT NONGYN CYTOLOGY SPECIMEN Routine 03/07/2020 12:46 PM EDT URINALYSIS Routine 03/07/2020 12:46 PM EDT COMPLETE BLOOD COUNT WITH AUTO DIFFERENTIAL Routine 03/07/2020 12:46 PM EDT documented in this encounter Results * Urinalysis, Microscopy Only (03/07/2020 12:46 PM EDT) URINE SQUAMOUS EPITHELIALS RARE NEGATIVE- RARE /lpf 03/07/2020 4:11 PM EDT [facility] RENAL EPITHELIAL CELLS RARE NEGATIVE- RARE /lpf 03/07/2020 4:11 PM EDT [facility] URINE WBC 0-5 0-5 CELLS /hpf 03/07/2020 4:11 PM EDT [facility] URINE BACTERIA OCCASIONAL NEGATIVE- OCCASIONAL /hpf 03/07/2020 4:11 PM EDT [facility] MUCOUS RARE NEGATIVE- RARE /lpf 03/07/2020 4:11 PM EDT [facility] 03/07/2020 12:4 6 PM EDT Mirta Sorenson MD LAB URINE ORDERABLES [facility] * (ABNORMAL) Urinalysis (03/07/2020 12:46 PM EDT) URINE COLOR YELLOW 03/07/2020 1:37 PM EDT [facility] URINE APPEARANCE CLEAR 03/07/20 20 1:37 PM EDT [facility] URINE PH 7.0 5.0 - 8.0 03/07/2020 1:37 PM EDT [facility] URINE SPEC GRAVITY 1.011 1.005 - 1.030 03/07/2020 1:37 PM EDT [facility] URINE PROTEIN NEGATIVE NEG-TRACE 03/07/2020 1:37 PM EDT [facility] URINE GLUCOSE NEGATIVE NEGATIVE 03/07/2020 1:37 PM EDT [facility] KETONES (URINE) NEGATIVE NEGATIVE 0 1:37 PM EDT [facility] URINE BILIRUBIN NEGATIVE NEGATIVE 0 1:37 PM EDT [facility] URINE BLOOD NEGATIVE NEGATIVE 03/07/2020 1:37 PM EDT [facility] LAB CONVERSION Nitrite NEGATIVE NEGATIVE 03/07/2020 1:37 PM EDT [facility] Leukocytes TRACE(A) NEGATIVE 03/07/2020 1:37 PM EDT [facility] LAB CONVERSION URINE UROBILINOGEN NORMAL NORMAL 03/07/2020 1:37 PM EDT [facility] 03/07/2020 12:4 6 PM EDT Mirta Sorenson MD LAB URINE ORDERABLES [facility] * Lactate Dehydrogenase (03/07/2020 12:46 PM EDT) [facility] LDH TOTAL 208 120 - 246 U/L 03/07/2020 2:05 PM EDT [facility] 03/07/2020 12:4 6 PM EDT Mirta Sorenson MD LAB BLOOD ORDERABLES Performing Organization Address City/[facility]/ZIP Co de Phone Number [facility] * (ABNORMAL) Comprehensive Metabolic Panel (03/07/2020 12:46 PM EDT) Pathologist [facility] ESTIMATED GFR 50(A) mL/min/1. 73sqM 03/07/2020 2:05 PM EDT [facility] ESTIMATED GFR Average GFR for 70+ yr old = 75 mL/min/1.73m 2 Multiply GFR by 1.16 for patients. (A) 03/07/2020 2:05 PM EDT [facility] SODIUM 132(L) 136 - 145 mEq/L 03/07/2020 2:05 PM EDT [facility] POTASSIUM 4.7 3.5 - 5.1 mEq/L 03/07/2020 2:05 PM EDT [facility] CHLORIDE 94(L) 98 - 107 mEq/L 03/07/2020 2:05 PM EDT [facility] CO2 32(H) 20 - 31 mEq/L 03/07/2020 2:05 PM EDT [facility] ANION GAP 6.0 6.0 - 20.0 mEq/L 03/07/2020 2:05 PM EDT [facility] GLUCOSE 74 74 - 100 mg/dL 03/07/2020 2:05 PM EDT [facility] BUN 25(H) 9 - 23 mg/dL 03/07/2020 2:05 PM EDT [facility] CREATININE 1.03(H) 0.50 - 0.80 mg/dL 03/07/2020 2:05 PM EDT [facility] BUN/CREAT RATIO 24.3 03/07/2020 2:05 PM EDT [facility] CALCIUM 9.9 8.3 - 10.6 mg/dL 03/07/2020 2:05 PM EDT [facility] TOTAL PROTEIN 7.3 5.7 - 8.2 g/dL 03/07/2020 2:05 PM EDT [facility] ALBUMIN 4.4 3.2 - 4.8 g/dL 03/07/2020 2:05 PM EDT [facility] AST 27 13 - 40 U/L 03/07/2020 2:05 PM EDT [facility] ALT 25 7 - 40 U/L 03/07/2020 2:05 PM EDT [facility] ALK.PHOS. 75 46 - 116 U/L 03/07/2020 2:05 PM EDT [facility] TOTAL BILIRUBIN 0.6 0.3 - 1.2 mg/dL 03/07/2020 2:05 PM EDT [facility] GLOBULIN 2.9 g/dL 03/07/2020 2:05 PM EDT [facility] ALBUMIN/GLOB RATIO 1.52 03/07/2020 2:05 PM EDT [facility] CKD STAGE Stage 3 03/07/2020 2:05 PM EDT [facility] 03/07/2020 12:4 6 PM EDT Mirta Sorenson MD LAB BLOOD ORDERABLES [facility] * (ABNORMAL) Complete Blood Count with Auto Differential (03/07/2020 12:46 PM EDT) WBC COUNT 8.6 4.8 - 10.8 X10 3/uL 03/07/2020 1:53 PM EDT [facility] CONVERSION RBC COUNT 4.77 4.20 - 5.40 X10 6/uL 03/07/2020 1:53 PM EDT [facility] HEMOGLOBIN 14.1 12.0 - 16.0 g/dL 03/07/2020 1:53 PM EDT [facility] CONVERSION HEMATOCRIT 44.0 37.0 - 47.0 % 03/07/2020 1:53 PM EDT [facility] CONVERSION MCV 92.2 79.0 - 97.0 fL 03/07/2020 1:53 PM EDT [facility] CONVERSION MCH 29.6 27.0 - 31.0 pg 03/07/2020 1:53 PM EDT [facility] CONVERSION MCHC 32.0 32.0 - 37.0 g/dL 03/07/2020 1:53 PM EDT [facility] CONVERSION RDW 13.1 11.5 - 14.5 % 03/07/2020 1:53 PM EDT [facility] CONVERSION RDW-SD 44.3 32.0 - 68.0 fL 03/07/2020 1:53 PM EDT [facility] CON[facility] PLATELET COUNT 285 140 - 440 X10 3/uL 03/07/2020 1:53 PM EDT [facility] CONVERSION MPV (BACK OFFICE) 9.3(L) 9.7 - 13.2 fL 03/07/2020 1:53 PM EDT [facility] NEUTROPHILS, % - [facility] 66 40 - 74 % 03/07/2020 1:53 PM EDT [facility] LYMPHOCYTE % (BACK OFFICE) 19 19 - 48 % 03/07/2020 1:53 PM EDT [facility] CONVERSION MONOCYTE % (BACK OFFICE) 12(H) 3 - 9 % 03/07/2020 1:53 PM EDT [facility] CONVERSION EOSINOPHILS, % - [facility] 1 0 - 7 % 03/07/2020 1:53 PM EDT [facility] CONVERSION BASOPHILS, % - [facility] 1 0 - 1 % 03/07/2020 1:53 PM EDT [facility] CON[facility] ABSOLUTE NEUT COUNT 5.71 1.90 - 8.00 X 10 3/uL 03/07/2020 1:53 PM EDT [facility] CONVERSION 03/07/2020 12:4 6 PM EDT Mirta Sorenson MD LAB BLOOD ORDERABLES Performing Organization Address [facility] de Phone Number [facility] * Nongyn Cytology Specimen (03/07/2020 12:46 PM EDT) Pathologist [facility] CYTOLOGY FINAL DIAGNOSIS: A. Voided urine, ThinPrep: ?- NEGATIVE FOR HIGH GRADE UROTHELIAL CARCINOMA. ?- UROTHELIAL CELLS, CELLS, LYMPHOCYTES AND FEW [...] for Cytology H/o Renal Cancer Opt [facility], CLIA certified to perform high complexity testing and [employer] (CAP) accredited, has developed and determined [...] be aware that there may be inadvertent sales correspondent errors not identified and corrected by the author. CPT Codes: CENH ?? 72461 x 1 ?Electonically signed by: ? ADELITA ESTRADA MD ? 03/13/2020 ??10:51 03/13/2020 11:21 AM EDT [facility] 03/07/2020 12:4 6 PM EDT Mirta Sorenson MD LAB CYTOLOGY ORDERAB LES Performing Organization Address [facility] Co de Phone Number [facility] documented in this encounter Visit Diagnoses Not on filedocumented in this encounter
--- OUTSIDE RECORDS SUMMARY | 2024-04-26 02:22 | XMS_ITS | Encounter Summary ---
Author Organization [employer]: [facility] & [facility] Health Care Address [facility] [phone] [place] [address] Care Team Providers Care Auto Electrical Technician Name Role Phone Uyen Gerard MD Primary Care Provider [phone] Encounter Details Date Type Department Care Team (Late st Contact Info) Description 01/28/[address] [phone] Gladys England MD [address] [place] [address] Sent notes via right fax to Dr. ANTHONY for date of service 01/28/23 . Social History Tobacco Use Types Packs/Day Years Used Date Smoking Tobacco: Never Smokeless Tobacco: Never Alcohol Use Standard Drinks/Week Comments Yes 0 (1 standard drink = 0.6 oz pur e alcohol) Sex and Gender Information Value Date Recorded Sex Assigned at Not on file Gender Identity Not on file Sexual Orientation Not on file documented as of this encounter Progress Notes * Martinez Mckay - 01/28/2023 12:29 PM EDT Sent notes via right fax to Dr. ANTHONY for date of service 01/28/23 . documented in this encounter Plan of Treatment Upcoming Encounters Date Type Department Care Team (Late st Contact Info) Description 06/08/2024 10:40 AM EDT Eye Care Visit [facility] [place] 17 [facility] [address] [place] [address] Gladys England MD [address] [place] [address] documented as of this encounter Visit Diagnoses Not on filedocumented in this encounter Care Teams Auto Electrical Technician Relationship Specialty Start Date End Date Uyen Gerard MD [facility] [place] [address] PCP - General Family Medicine 08/27/21 documented as of this encounter
--- OUTSIDE RECORDS SUMMARY | 2024-04-26 02:22 | XMS_ITS | Encounter Summary ---
Author Organization [employer]: [facility] & [facility] Care Address [facility] [phone] [place] [address] Care Team Providers Care Payloader Operator Name Role Phone Unavailable Primary Care Provider Unavailabl e Encounter Details Date Type Department Care Team (Late st Contact Info) Description 03/09/2019 [facility] Oncology and Hematology [address] [place] [phone] Social History Tobacco Use Types Packs/Day Years [...] Progress Notes * Mirta Sorenson MD - 03/09/2019 11:10 AM EDT [facility] Hematology / Oncology TALITA VELASCO was seen [...] [place]- details requested; No [...] a wonderful cruise in [place] to the [facility] in 2016; She went to to [facility] in 2014. Previously she had a left ankle fracture which needed internal fixation in July 2013 while traveling from [place] to [place]; She was previously seen by Dr. 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 She now has a primary care and pulmonary physician at [place], [place] . 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 She has no tinnitus, deafness or vertigo; she denies any problems swallowing. She has no angina or palpitations, dizziness or diaphoresis; she has no shortness of breath at rest and on mild exertion; stable worsenedshortness of breath with climbing inclines--less functional in [...] chills or rigor; she has no loss ofweight or appetite; she is doing well emotionally.Fatigue Is present but unchanged and not limitingfunctionality; Ankle pain and stiffness has resolved ;Patient [...] Please provide one pair of thigh-high compression [id number]-13-20 mm mercury VITAMIN C CAPSULE (ASCORBIC ACID CAPS) 1000u once daily ELIQUIS 5 MG ORAL TABLET (APIXABAN) take 1 tab twice a day; Route: ORAL TRELEGY ELLIPTA AEROSOL POWDER BREATH ACTIVATED ([id number]-[id number]-[id number] AEPB) once a day LOSARTAN POTASSIUM 50 [...] & Recommendations: Problem #1: RENAL CELL CANCER ([id number]) Complete Medication List: IMITREX 50 MG ORAL [...] Please provide one pair of thigh-high compression fdruzjwrx-04-89 mm mercury VITAMIN C CAPSULE (ASCORBIC ACID CAPS) 1000u once daily ELIQUIS 5 MG ORAL TABLET (APIXABAN) take 1 tab twice a day; Route: ORAL TRELEGY ELLIPTA AEROSOL POWDER BREATH ACTIVATED (TVILRKOSNWU-THQMHXMAH-SMHDXH AEPB) once a day LOSARTAN POTASSIUM 50 [...] in 12 months at her request. I recommendedno further reason for annual CT scans, unless she is symptomatic;I also informed her that she can return here p.r.n.- she will let me know Lung nodules-patient has had a complete evaluation by Dr. Carter who recommended no further CT scans as the lesions have been stable since 2004. Followup with prepared foods team leader; She is aware that she can call me with any questions regarding kidney cancer or new symptoms. The patient has moved to [place], I again suggested that she switch her oncologic care to the [facility].She will think about it. This recommendation [...] patient receives all her primary care in [place]-primary care issues like screening, vaccinationand health maintenance issues are deferred to her PCP; Copy to: PCP: Uyen Gerard MD ] sent to above indicated cc'd provider(s) documented in this encounter Plan of Treatment Upcoming Encounters Date Type Department Care Team (Late st Contact Info) Description 06/08/2024 10:40 AM EDT [facility] [address] [phone] Gladys England MD [address] [place] [phone] documented as of this encounter Visit Diagnoses Not on filedocumented in this encounter
--- OUTSIDE RECORDS SUMMARY | 2024-04-26 02:22 | XMS_ITS | Encounter Summary ---
Author Organization [employer]: [facility] Address [facility] [phone] [place] [address] Care Team Providers Care Foreign Collection Clerk Name Role Phone Unavailable Primary Care Provider Unavailabl e Encounter Details Date Type Department Care Team (Late st Contact Info) Description 02/09/2017 [facility] Emergency Department Oncology and Hematology [address] [place] [phone] Social History Tobacco Use Types Packs/Day Years [...] Progress Notes * Mirta Sorenson MD - 02/09/2017 11:03 AM EDT [facility] Hematology / Oncology TALITA VELASCO was seen [...] her last visit, she has had no newprocedures ; In August 2016, she was diagnosed with atrial fibrillation and is currently on Eliquis; she has just completed attending 3 graduations of 3 grandchildren; she continues to have shortness of breath with inclines; she is getting over an upper respiratory tract infection; She is lookingforward to a cruise in [place] to the [facility]; Previously she had a left ankle fracture which needed internal fixation in July 2013 while traveling from [place] to [place]; She was previously seen by Dr. Ming Carter in pulmonary medicine and has been diagnosed to havemild to moderate COPD for which she is using Spireva with good control of symptoms;Functionality has improved; No family member has been diagnosed with cancer;She and her have now permanentlymoved to [place]. She now has a primary care and pulmonary physician at [place], [place] . 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 [place]; Patient originally lived and worked in [facility] Review of Systems The patient denies [...] stiffness has resolved Patient went to to [facility] in 2014 ;Patient has had a screening [...] Please provide one pair of thigh-high compression awdttpocw-87-58 mm mercury LOSARTAN POTASSIUM 25 MG TABS [...] 3.7 - 01/09/2017 Alkaline Phosphatase: - AST: 24 - 01/09/2017 ALT: - 01/09/2017 Total Bilirubin: 0.4 - 01/09/2017 [...] Please provide one pair of thigh-high compression gzjvqzovu-40-88 mm mercury LOSARTAN POTASSIUM 25 MG TABS [...] have been stable since 2004. Followup with optical goods drill operator; She is aware that she can call me with any questions regarding kidney cancer or new symptoms. The patient is moving to [place], I again suggested that she switch her oncologic care to the [facility].She will think about it. This [...] patient receives all her primary care in [place]-primary care issues like screening, vaccinationand health maintenance [...] AM EDT [facility] 104 [place] [address] Gladys England MD [address] [place] [address] documented as of this encounter Visit Diagnoses Not on filedocumented in this encounter
--- OUTSIDE RECORDS SUMMARY | 2024-04-26 02:22 | XMS_ITS | Encounter Summary ---
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 Patient states that she is noticing a slight change in both her near and distance vision. Her eyes will get fatigued when reading for too long. Notes that she has not seen an laundry bag punch operator in about 18 months. Ms. Velasco notes that she has recently had to start driving again because her has been diagnosed with terminal cancer and is no longer the one driving. Compliant with her glaucoma drops. Patient oriented to person, place and time: Yes Mood and affect: NORMAL General Medical Appearance: NORMAL Pupillary dilation: Both (Tropicamide 1% and Neosynephrine 2.5%) Baselines Right Left Highest IOP 20s? mmHg [...] ? 14-16mmHg Examination Right Left Visual Acuity 20/40-1 20/40-2 Pinhole Vision 20/30-1 20/30 Intraocular Pressure 13 mmHg 16 mmHg External The pupils are normal (no [...] at 80% thinning to the rim inferiorly. Disk heme at 6 Cupping is estimated at 85% loss of [...] = 0.68 mm3 - Inferiorloss Visual Burnham (01-28-23) TRUNG 24-2: 2/11FLs, superior arcuate depression MD-4.39 TRUNG 24-2: 2/12FLs, dense superior arcuate nearly altitudinal defect MD-15.31 Visual Burnham (09-03-22) TRUNG 10-2: Baseline - superior arcuate depression not yet to fixation MD-2.12 TRUNG 10-2: Baseline - dense superior arcuate not yet up to fixation MD-8.28 Pachymetry ? Confrontation VF Full Other (ST HM) Fundus photo (03/26/22) Glaucomatous cupping noted, no disc heme noted Glaucomatous cupping noted, no disc heme noted Impression: 1. 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 IOP is at target OU today. OCT testing remains stable in both eyes with no progression. New disk heme noted in the right eye today. I would like to follow her a little sooner that usual to perform a visual field test. - Disk heme OD (06-10-2023) - No family hx - Avg CCT - Hx of COPD, avoid beta-blockers 2. Bilateral cataracts - becoming more visually significant to patient; glare at night, trouble reading. She would like to hold off for now due to health issues with her . She will obtain updated MRx from her local [facility]. Disposition: 1. We discussed the natural history [...] for the mail order to arrive. - Alphagan P 0.1%, both eyes 2x daily 3. Follow up with me in 3-4 months for IOP check and VF 10-2 OU Notes to: -[facility] in [place], [place] Performed and dictated by Dr. Gladys England to scribe Roe Jin No annotated images are attached to the encounter. * Kay Duran - 06/10/2023 10:00 AM EDT Pt states she has noticed a decline in the distance and near vision. There is occasional floaters and no flashes of lights. There is no dryness or eye pain. She is currently using Latanoprost QHS andAlphagan P 0.1% BID OU. Medications - Xalatan, both eyes at bedtime --she will call us if she has trouble obtaining a bottle from the local pharmacy while she is waiting for the mail order to arrive. - Alphagan P 0.1%, both eyes 2x daily documented in this encounter Plan of Treatment Upcoming Encounters Date Type Department Care Team (Late st Contact Info) Description 06/08/2024 10:40 AM EDT Eye Care Visit [facility] [address] [place] [address] Gladys England MD [address] [place] [address] documented as of this encounter Visit Diagnoses Diagnosis Pseudoexfoliative glaucoma, both eyes, moderate stage- Primary Combined form of senile cataract of both eyes documented in this encounter Care Teams Cosmetic Dentist Relationship Specialty Start Date End Date Uyen Gerard MD [address] [place] [address] PCP - General Family Medicine 08/27/21 documented as of this encounter
--- OUTSIDE RECORDS SUMMARY | 2024-04-26 02:22 | XMS_ITS | Encounter Summary ---
Author Organization [employer]: [facility] & [facility] Address [facility] [phone] [place] [address] Care Team Providers Care Sorter Pricer Name Role Phone Uyen Gerard MD Primary Care Provider [phone] Reason for Visit * Reason Onset Date Comments Appt Needed 11/30/2023 Encounter Details Date Type Department Care Team (Late st Contact Info) Description 11/30/2023 [facility] [address] [place] [phone] Gladys England MD [address] [place] [address] Appt Needed Social History Tobacco Use Types [...] * Telephone Encounter - Lucie Gerardo - 11/30/2023 10:47 AM EDT Patient is scheduled for 01/05 at 8:30am. * Telephone Encounter - Roe Jin - 11/30/2023 9:35 AM EDT Please offer one of the open post op slots on 01/05 in [place] * Telephone Encounter - Lucie Gerardo - 11/30/2023 9:31 AM EDT Patient needs to reschedule her 12/[address] England. Please advise on a SHORT in [facility]. documented in this encounter Plan of Treatment Upcoming Encounters Date Type Department Care Team (Late st Contact Info) Description 06/08/2024 10:40 AM EDT Eye Care Visit [facility] [place] 17 [facility] 104 [place] [address] Gladys England MD [address] [place] [address] documented as of this encounter Visit Diagnoses Not on filedocumented in this encounter Care Teams Sorter Pricer Relationship Specialty Start Date End Date Uyen Gerard MD [address] [place] [address] [place] [address] PCP - General Family Medicine 08/27/21 documented as of this encounter
--- OUTSIDE RECORDS SUMMARY | 2024-04-26 02:22 | XMS_ITS | Encounter Summary ---
Author Organization [employer]: [facility] & [facility] Care Address [facility] [phone] [place] [address] Care Team Providers Care Accounting Representative Name Role Phone Unavailable Primary Care Provider Unavailabl e Encounter Details Date Type Department Care Team ([facility] st Contact Info) Description 03/07/2020 [facility] Oncology and Hematology [address] [place] [phone] Mirta Sorenson MD [address] [place] [address] Social History Tobacco Use Types Packs/Day Years [...] Progress Notes * Mirta Sorenson MD - 03/07/2020 12:05 PM EDT [facility] Hematology / Oncology The patient was seen in-person for this encounter. TALITA VELASCO was seen today for follow up. 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 Treatment: Observation ECOG Performance Status: 09/10 Patient receiving Oral Antineoplastic Therapy? No Advanced Directive? not discussed History of Present Illness: Patient is 85 years old; she is not accompanied by her ;since her last visit, she continues to do reasonably well with increasing limitations from heart disease; In 2018- [place]- details requested; No [...] [facility] [place] [facility]; She went to to [facility] in 2014. Previously she had a left ankle fracture which needed internal fixation in July 2013 [place]; She was previously seen by Dr. 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 She now has a primary care and pulmonary physician at [place], [place] . 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 spreading her time between [place] and [place]; Patient originally lived and worked in [facility] Review of Systems The patient denies any [...] limitingfunctionality; Ankle pain and stiffness has resolved ; [...] Please provide one pair of thigh-high compression gprfbcfnw-04-37 mm mercury VITAMIN C CAPSULE (ASCORBIC ACID CAPS) 1000u once daily ELIQUIS 5 MG ORAL TABLET (APIXABAN) take 1 tab twice a day; Route: ORAL TRELEGY ELLIPTA AEROSOL POWDER BREATH ACTIVATED (UPRAKVAFJOZ-UVHCTJHIU-NXNTZE AEPB) once a day LOSARTAN POTASSIUM 50 MG ORAL TABLET (LOSARTAN POTASSIUM) 2 tabs daily; Route: ORAL METOPROLOL SUCCINATE ER 50 MG ORAL TABLET EXTENDED RELEASE 24 HOUR (METOPROLOL SUCCINATE) 2 tabs bymouth in the morning and 1 tab by [...] pain? no Vitals Taken By: Shellie Lyle CMA, March 07, 2020 12:07 PM Tobacco use: never smoker Rooming Notes Medications and allergies were reviewed with the patient. The patient's weight at the last visit (03/09/2019) was 137.4 pounds. Today's weight is 136.6 pounds. This is a change of -0.80 pounds in 364 days. Patient has not been hospitalized since last visit. Signed by: Shellie Lyle CMA, March 07, 2020 12:19 PM Physical Exam [...] & Recommendations: Problem #1: RENAL CELL CANCER ([id number]) Complete Medication List: IMITREX 50 MG ORAL [...] Please provide one pair of thigh-high compression ymgjueawz-13-91 mm mercury VITAMIN C CAPSULE (ASCORBIC ACID CAPS) 1000u once daily ELIQUIS 5 MG ORAL TABLET (APIXABAN) take 1 tab twice a day; Route: ORAL TRELEGY ELLIPTA AEROSOL POWDER BREATH ACTIVATED (CWWXOLETUQI-CFNSHQQWK-KPXLVG AEPB) once a day LOSARTAN POTASSIUM 50 MG ORAL TABLET (LOSARTAN POTASSIUM) 2 tabs daily; Route: ORAL METOPROLOL SUCCINATE ER 50 MG ORAL TABLET EXTENDED RELEASE 24 HOUR (METOPROLOL SUCCINATE) 2 tabs bymouth in the morning and 1 tab by [...] p.r.n.. I recommended no further reason for annual CT scans, unless she is symptomatic; She is now agreeable to returning p.r.n.;She is aware that she can call with any questions or concerns or symptoms; Lung nodules-patient has had a complete evaluation by Dr. Carter who recommended no further CT scans as the lesions have been stable since 2004. Followup with professor of religion; She is aware that she can call me with any questions regarding kidney cancer or new symptoms. The patient has moved to [place], I again suggested that she switch her oncologic care to the [facility] [place] [facility].This recommendation still stands. I also previously recommended [...] patient receives all her primary care in [place]-primary care issues like screening, vaccinationand health maintenance [...] Eye [facility] Visit [facility] 17 [facility] 104 [place] [address] Gladys England MD [address] [place] [address] documented as of this encounter Visit Diagnoses Not on filedocumented in this encounter
--- OUTSIDE RECORDS SUMMARY | 2024-04-26 02:22 | XMS_ITS | Encounter Summary ---
Author Organization [employer]: [facility] Address [facility] [phone] [place] [address] Care Team Providers Care Iron Pourer Name Role Phone Uyen Gerard MD Primary Care Provider [phone] Reason for Visit * Reason Comments Glaucoma Consult referred by Dr. Singh Encounter Details Date Type Department Care Team (Latest Contact Info) Description 11/26/2021 2:20 PM EDT Eye [facility] Visit [facility] [address] [facility] [address] [place] [address] Gladys England MD [address] [place], [place] [phone] Pseudoexfoliative glaucoma, both eyes, moderate stage (Primary [...] this encounter Patient Instructions * Patient Instructions* Gladys England MD - 11/26/2021 2:20 PM EDT Medications - Xalatan, both eyes at bedtime - START Alphagan P 0.1%, left eye only 2x daily documented in this encounter Progress Notes * Gladys England MD - 11/26/2021 2:20 PM EDT [...] 2021--her instills drops. She denies previous eye surgery or laser treatment. She reports blurry vision when she reads a lot, and she is able to see wellenough to drive and stay independent. She reports [...] Inferior loss Visual Burnham (11-26-21) TRUNG 24-2: 11/FLs, superior arcuate depression - Baseline MD-3.74 2/14FLs, [...] and shows worse damage in the left eye. Discussed further intervention options (adding gtts or laser). Patient notes that she would liketo add drops rather than do laser at [...] images are attached to the encounter. * Jolene Quezada, Delivery Table Operator. - 11/26/2021 2:20 PM EDT Patient reports she is using Latanoprost OU QPM. Patient reports she has been on those since September. Patient reports that her vision overall is okay. Patient reports when she reads a lot her vision gets blurry. She is able to see and drive. No prior eye surgery, laser, or trauma. General health isstable. 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
--- OUTSIDE RECORDS SUMMARY | 2024-04-26 02:22 | XMS_ITS | Encounter Summary ---
Author Organization [employer]: [facility] & [facility] Care Address [facility] [phone] [place] [address] Care Team Providers Care Manager Hiv Name Role Phone Uyen Gerard MD Primary Care Provider [phone] Reason for Visit * Reason Onset Date Comments Refill Request 01/08/2023 Encounter Details Date Type Department Care Team (Late st Contact Info) Description 01/02/2023 [facility] [address] [place] [phone] Gladys England MD [address] [place] [address] Refill Request Social History Tobacco Use Types Packs/Day Years Used Date Smoking Tobacco: Never Smokeless Tobacco: Never Alcohol Use Standard Drinks/Week Comments Yes 0 (1 standard drink = 0.6 oz pur e alcohol) Sex and Gender Information Value Date Recorded Sex Assigned at Not on file Gender Identity Not on file Sexual Orientation Not on file documented as of this encounter Miscellaneous Notes * Addendum Note - Marcy Miller - 01/08/2023 9:15 AM EDTAddended by: MARCY MILLER on: 01/08/2023 09:15 AM Modules accepted: Orders * Telephone Encounter - Marcy Miller - 01/08/2023 9:13 AM EDT Patient called back in checking on status of her prescription request. I [facility] with patient [facility] Patient stated that she [facility] as she is in [place] for the summer. [facility] per patients request. * Telephone Encounter - Damion Burch - 01/02/2023 1:09 PM EDT Requested refill of Xalatan on refill line. Rx request pending doctor's signature documented in this encounter Plan of Treatment Upcoming Encounters Date Type Department Care Team (Late st Contact Info) Description 06/08/2024 10:40 AM EDT Eye Care Visit [facility] [address] [place] [address] Gladys England MD [address] [place] [address] documented as of this encounter Visit Diagnoses Not on filedocumented in this encounter Care Teams Manager Hiv Relationship Specialty Start Date End Date Uyen Gerard MD [address] [place] [address] [place] [address] PCP - General Family Medicine 08/27/21 documented as of this encounter
--- OUTSIDE RECORDS SUMMARY | 2024-04-26 02:22 | XMS_ITS | Encounter Summary ---
Author Organization [employer]: [facility] Address [facility] [phone] [place] [address] Care Team Providers Care Operations Analyst Name Role Phone Unavailable Primary Care Provider Unavailabl e Encounter Details Date Type Department Care Team (Late Contact Info) Description 01/09/2017 10:11 AM EDT Hospital Encounter [facility] Laboratory Services [address] [place] [address] Social History Tobacco Use Types Packs/Day Years [...] Eye Care Visit [facility] [place] 17 [facility] 104 [place] [address] Gladys England MD [address] [place] [address] documented as of this encounter Visit Diagnoses Not on filedocumented in this encounter
--- OUTSIDE RECORDS SUMMARY | 2024-04-26 02:22 | XMS_ITS | Encounter Summary ---
Author Organization [employer]: [facility] Address [facility] [phone] [place] [address] Care Team Providers Care Digital Sales Manager Name Role Phone Uyen Gerard MD Primary Care Provider [phone] Reason for Visit * Reason Comments Follow-up Evaluation For Glaucoma Encounter Details Date Type Department Care Team (Latest Contact Info) Description 03/26/2022 9:00 AM EDT Eye Care Visit [facility] [place] 17 [facility] 104 [place] [phone] Gladys England MD [address] [place] [address] Pseudoexfoliative glaucoma, both eyes, moderate stage (Primary [...] Progress Notes * Gladys England MD - 03/26/2022 9:00 AM EDT Images from the original note were not included. Chief Complaint: Patient presents with: Follow-up Evaluation For Glaucoma History of Present Illness: Patient presents in office for an IOP check after increasing Alphagan. Patient states that she is doing well with the new drop. She is having help putting them in from herMeezsband. Her vision has remained stable since her last exam. Patient oriented to person, place and time: [...] Left Visual Acuity 20/40-2 20/30-2 Pinhole Vision 20/25 20/ Intraocular Pressure 13 mmHg 14 mmHg External The pupils are normal (no APD). The lids and ocular adnexa are normal. Ocular motility is full. Anterior Segments The conjunctivae and corneae are normal. The anterior chambers are deep. The irides are normal. Right eye has early nasal band K Lens 2+NS/CC 2-3+NS/CC - PXE on anterior capsule and [...] Baseline. MD-13.01 Pachymetry ? Confrontation VF Full Other (ST restricted full to other quads) Fundus photo (03/26/22) Glaucomatous cupping noted, no disc heme noted Glaucomatous cupping noted, no disc heme noted Fundus Photos (03-26-22) Impression: 1. 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 IOP is excellent OU today with slight change in medication. Fundus photos and OCTs are stable. - No family hx - Avg CCT [...] me in 3 months for IOP check VF 10-2 OU Notes to: -Yamileth Singh, OD Performed and dictated by Dr. Gladys England to scribe Roe Jin No annotated images are attached to the encounter. * Toña Fernández - 03/26/2022 9:00 AM EDT Finds sometimes in the left eye when reading there appears to have a cover over her her vision. 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
--- OUTSIDE RECORDS SUMMARY | 2024-04-26 02:22 | XMS_ITS | Encounter Summary ---
Author Organization [employer]: [facility] & [facility] Address [facility] [phone] [place] [address] Care Team Providers Care Assistant Professor Of Religion Name Role Phone Uyen Gerard MD Primary Care Provider [phone] Encounter Details Date Type Department Care Team (Late st Contact Info) Description 06/10/[address] [phone] Gladys England MD [address] [place] [address] Sent notes via right fax to [email or web address] for date of service 06/10/23 . Social History Tobacco Use Types Packs/Day [...] encounter Progress Notes * Martinez Mckay - 06/10/2023 10:40 AM EDT Sent notes via right fax to [facility] for date of service 06/10/23 . documented in this encounter Plan of Treatment Upcoming Encounters Date Type Department Care Team (Late st Contact Info) Description 06/08/2024 10:40 AM EDT Eye Care Visit [facility] [place] [address] [place] [address] Gladys England MD [address] [place] [address] documented as of this encounter Visit Diagnoses Not on filedocumented in this encounter Care Teams Assistant Professor Of Religion Relationship Specialty Start Date End Date Uyen Gerard MD [address] [place] [address] PCP - General Family Medicine 08/27/21 documented as of this encounter
--- OUTSIDE RECORDS SUMMARY | 2024-04-26 02:22 | XMS_ITS | Encounter Summary ---
Author Organization [employer]: [facility] & [facility] Care Address [facility] [phone] [place] [address] Care Team Providers Care House Shorer Name Role Phone Unavailable Primary Care Provider Unavailabl e Encounter Details Date Type Department Care Team (Late Contact Info) Description 01/30/2015 [facility] Oncology and Hematology [address] [place] [phone] Social History Tobacco Use Types Packs/Day Years [...] Eye [facility] Visit [facility] [place] 17 [facility] 104 [place] [address] Gladys England MD [address] [place] [address] documented as of this encounter Visit Diagnoses Not on filedocumented in this encounter
--- OUTSIDE RECORDS SUMMARY | 2024-04-26 02:22 | XMS_ITS | Encounter Summary ---
Author Organization [employer]: [facility] & [facility] Care Address [facility] [phone] [place] [address] Care Team Providers Care Airplane Gas Tank Liner Assembler Name Role Phone Uyen Gerard MD Primary Care Provider [phone] Reason for Visit * Reason Onset Date Comments Medication Question 07/28/2023 Encounter Details Date Type Department Care Team (Late st Contact Info) Description 07/28/2023 Telephone [facility] [address] [place] [phone] Gladys England MD [address] [place] [phone] Medication Question Social History Tobacco Use Types [...] Notes * Telephone Encounter - Jolene Quezada Casing Runner. - 07/28/2023 11:52 AM EST Called and spoke with patient. I recommended she tried lubricating drops prior to prescribing a dryeye medication. She was agreeable to plan. Will call if symptoms persist. * Telephone Encounter - Katt Lovett - 07/28/2023 9:57 AM EST Patient called in stating that she has been experiencing new redness, itching and burning. She is visiting a friend who let her use (a new, unused bottle) Xiidra and she said that seems to be workingfor her symptoms. She wants to know if there is anything that Dr. England can prescribe to help with the symptoms. States that she did not use artificial tears to help with irritation. If anything is prescribed this week, it will need to be sent to [facility] [address] in [place], [place] [phone] documented in this encounter Plan of Treatment Upcoming Encounters Date Type Department Care Team (Late st Contact Info) Description 06/08/2024 10:40 AM EDT Eye Care Visit [facility] [address] [place] [address] Gladys England MD [address] [place] [address] documented as of this encounter Visit Diagnoses Not on filedocumented in this encounter Care Teams Airplane Gas Tank Liner Assembler Relationship Specialty Start Date End Date Uyen Gerard MD [address] [place] [address] [place] [address] PCP - General Family Medicine 08/27/21 documented as of this encounter
--- OUTSIDE RECORDS SUMMARY | 2024-04-26 02:22 | XMS_ITS | Encounter Summary ---
Author Organization [employer]: [facility] & [facility] Address [facility] [phone] [place] [address] Care Team Providers Care Stave Planer Tender Name Role Phone Uyen Gerard MD Primary Care Provider [phone] Encounter Details Date Type Department Care Team (Late st Contact Info) Description 11/27/[address] [phone] Gladys England MD [address] [place] [address] Sent notes via right fax to Dr. ANTHOYN for date of service 11/26/21 . Social History Tobacco Use Types Packs/Day Years Used Date Smoking Tobacco: Never Smokeless Tobacco: Never Alcohol Use Standard Drinks/Week Comments Yes 0 (1 standard drink = 0.6 oz pur e alcohol) Sex and Gender Information Value Date Recorded Sex Assigned at Not on file Gender Identity Not on file Sexual Orientation Not on file documented as of this encounter Progress Notes * Janny Porter - 11/27/2021 8:34 AM EDT Sent notes via right fax to Dr. ANTHONY for date of service 11/26/21 . documented in this encounter Plan of Treatment Upcoming Encounters Date Type Department Care Team (Late st Contact Info) Description 06/08/2024 10:40 AM EDT Eye [facility] Visit [facility] [place] 17 [facility] [address] [place] [address] Gladys England MD [address] [place] [address] documented as of this encounter Visit Diagnoses Not on filedocumented in this encounter Care Teams Stave Planer Tender Relationship Specialty Start Date End Date Uyen Gerard MD [address] [place] [address] PCP - General Family Medicine 08/27/21 documented as of this encounter
--- OUTSIDE RECORDS SUMMARY | 2024-04-26 02:22 | XMS_ITS | Encounter Summary ---
Author Organization [employer]: [facility] Address [facility] [phone] [place] [address] Care Team Providers Care Willower Name Role Phone Unavailable Primary Care Provider Unavailabl e Encounter Details Date Type Department Care Team (Late Contact Info) Description 08/07/2011 9:49 AM EST Hospital Encounter [facility] Laboratory Services 8 [place] [address] Social History Tobacco Use Types Packs/Day Years [...] Eye [facility] Visit [facility] [place] 17 [facility] 104 [place] [address] Gladys England MD [address] [place] [address] documented as of this encounter Visit Diagnoses Not on filedocumented in this encounter
--- OUTSIDE RECORDS SUMMARY | 2024-04-26 02:22 | XMS_ITS | Encounter Summary ---
Author Organization [employer]: [facility] & [facility] Address [facility] [phone] [place] [address] Care Team Providers Care Manager Electronic Name Role Phone Unavailable Primary Care Provider Unavailabl e Encounter Details Date Type Department Care Team (Late Contact Info) Description 08/22/2011 9:37 AM EST Hospital Encounter [facility] Laboratory Services 8 [place] [address] Social History Tobacco Use Types Packs/Day Years [...] Eye Care Visit [facility] [place] 17 [facility] 104 [place] [address] Gladys England MD [address] [place] [address] documented as of this encounter Visit Diagnoses Not on filedocumented in this encounter
--- OUTSIDE RECORDS SUMMARY | 2024-04-26 02:22 | XMS_ITS | Encounter Summary ---
Author Organization [employer]: [facility] & [facility] Address [facility] [phone] [place] [address] Care Team Providers Care Visual Supervisor Name Role Phone Unavailable Primary Care Provider Unavailabl e Encounter Details Date Type Department Care Team (Late Contact Info) Description 03/07/2020 [facility] OUTPATIENT CONV Generic, Provider [address] [address] Social History Tobacco Use Types Packs/Day Years [...] Eye Care Visit [facility] [place] 17 [facility] 104 [place] [address] Gladys England MD [address] [place] [address] documented as of this encounter Visit Diagnoses Not on filedocumented in this encounter
--- OUTSIDE RECORDS SUMMARY | 2024-04-26 02:22 | XMS_ITS | Encounter Summary ---
Author Organization [employer]: [facility] & [facility] Address [facility] [phone] [place] [address] Care Team Providers Care Family Service Aide Name Role Phone Uyen Gerard MD Primary Care Provider [phone] Reason for Visit * Reason Comments Refill/Eprescribe Encounter Details Date Type Department Care Team (Late Contact Info) Description 02/15/2024 Refill [facility] [place] 17 [facility] [address] [place] [phone] Gladys England MD [address] [place] [address] Refill/Eprescribe Social History Tobacco Use Types Packs/Day Years [...] encounter Miscellaneous Notes * Telephone Encounter - Ector Nieves Asst. - 02/15/2024 8:01 AM EDT Rx request pending doctor's signature documented in this encounter Plan of Treatment Upcoming Encounters Date Type Department Care Team (Late st Contact Info) Description 06/08/2024 10:40 AM EDT Eye Care Visit [facility] [place] 17 [facility] [address] [place] [address] Gladys England MD [address] [place] [address] documented as of this encounter Visit Diagnoses Not on filedocumented in this encounter Care Teams Family Service Aide Relationship Specialty Start Date End Date Uyen Gerard MD [address] [place] [address] PCP - General Family Medicine 08/27/21 documented as of this encounter
--- OUTSIDE RECORDS SUMMARY | 2024-04-26 02:22 | XMS_ITS | Encounter Summary ---
Author Organization [employer]: [facility] & [facility] Care Address [facility] [phone] [place] [address] Care Team Providers Care Environmental Planning Engineer Name Role Phone Uyen Gerard MD Primary Care Provider [phone] Reason for Visit * Reason Comments Follow-Up Pseudoexfoliative Gl aucoma, OS>OD Encounter Details Date Type Department Care Team (Latest Contact Info) Description 12/17/2021 8:30 AM EDT Eye Care Visit [facility] Eye [facility] [address] [facility] [address] [place] [address] Gladys England MD [address] [place] [address] Pseudoexfoliative glaucoma, both eyes, moderate stage (Primary [...] * Patient Instructions* Gladys England MD - 12/17/2021 8:30 AM EDT Medications - Xalatan, both eyes at bedtime - Increase Alphagan P 0.1%, both eyes 2x daily documented in this encounter Progress Notes * Gladys England MD - 12/17/2021 8:30 AM [...] 10:40 AM EDT Eye Care Visit [facility] Eye [facility] 17 [facility] 104 [place] [phone] Gladys England MD [address] [place] [address] documented as of this encounter Visit Diagnoses Diagnosis Pseudoexfoliative glaucoma, both eyes, 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
--- OUTSIDE RECORDS SUMMARY | 2024-04-26 02:22 | XMS_ITS | Encounter Summary ---
Author Organization [employer]: [facility] Address [facility] [phone] [place] [address] Care Team Providers Care Soa Integration Developer Name Role Phone Unavailable Primary Care Provider Unavailabl e Encounter Details Date Type Department Care Team (Late Contact Info) Description 01/08/2016 8:18 AM EDT Hospital Encounter [facility] Laboratory Services 8 [place] [address] Social History Tobacco Use Types Packs/Day Years [...] Eye Care Visit [facility] [place] 17 [facility] 104 [place] [address] Gladys England MD [address] [place] [address] documented as of this encounter Visit Diagnoses Not on filedocumented in this encounter
--- OUTSIDE RECORDS SUMMARY | 2024-04-26 02:22 | XMS_ITS | Encounter Summary ---
Author Organization [employer]: [facility] & [facility] Address [facility] [phone] [place] [address] Care Team Providers Care Foreign Car Mechanic Name Role Phone Unavailable Primary Care Provider Unavailabl e Encounter Details Date Type Department Care Team (Late Contact Info) Description 02/21/2014 12:41 PM EDT Hospital Encounter [facility] Specimen Drop Off 8 [place] [address] Social History Tobacco Use Types Packs/Day Years [...] Eye Care Visit [facility] [place] 17 [facility] 104 [place] [address] Gladys England MD [address] [place] [address] documented as of this encounter Visit Diagnoses Not on filedocumented in this encounter
--- OUTSIDE RECORDS SUMMARY | 2024-04-26 02:22 | XMS_ITS | Encounter Summary ---
Author Organization [facility]: [facility] Address [facility] [phone] [place] [address] Care Team Providers Care Aviation Technician Name Role Phone Uyen Gerard MD Primary Care Provider [phone] Reason for Visit * Reason Comments Refill/Eprescribe Encounter Details Date Type Department Care Team (Late st Contact Info) Description 08/23/2023 Refill [facility] Eye [facility] [address] [facility] [place] [address] Gladys England MD [address] [place] [address] Refill/Eprescribe Social History Tobacco Use Types Packs/Day [...] encounter Miscellaneous Notes * Telephone Encounter - Roe Jin - 08/24/2023 7:58 AM EST Rx request pending doctor's signature * Telephone Encounter - Laura Castle Waterworks Operator. - 08/24/2023 7:58 AM EST Rx request pending doctor's signature documented in this encounter Plan of Treatment Upcoming Encounters Date Type Department Care Team (Late st Contact Info) Description 06/08/2024 10:40 AM EDT Eye Care Visit [facility] [place] 17 [facility] [address] [place] [address] Gladys England MD [address] [place] [address] documented as of this encounter Visit Diagnoses Not on filedocumented in this encounter Care Teams Aviation Technician Relationship Specialty Start Date End Date Uyen Gerard MD [address] [place] [address] PCP - General Family Medicine 08/27/21 documented as of this encounter
--- OUTSIDE RECORDS SUMMARY | 2024-04-26 02:22 | XMS_ITS | Encounter Summary ---
Author Organization [employer]: [facility] & [facility] Care Address [facility] [phone] [place] [address] Care Team Providers Care Salon Leader Name Role Phone Uyen Gerard MD Primary Care Provider [phone] Reason for Visit * Reason Comments Follow-Up Pseudoexfoliative gl aucoma, both eyes, moderate stage Encounter Details Date Type Department Care Team (Latest Contact Info) Description 01/28/2023 11:00 AM EDT Eye Care Visit [facility] [place] 17 [facility] [address] [place] [address] Gladys England MD [address] [place] [address] Pseudoexfoliative glaucoma, both eyes, moderate stage (Primary [...] Progress Notes * Gladys England MD - 01/28/2023 11:00 AM EDT Chief Complaint: Patient presents with: Follow-Up: Pseudoexfoliative glaucoma, both eyes, moderate stage History of Present Illness: Patient presents in office for a glaucoma follow-up. Patient states that her vision has not been as sharp as they used to be. Denies any pain or irritation. She ran out ofLatanoprost last night. She is waiting on her Rx to be ready and shipped to her. Patient oriented to person, place and time: [...] ? 14-16mmHg Examination Right Left Visual Acuity 20/30-1 20/40-2 Pinhole Vision 20/ni 20/ni Intraocular Pressure 14 mmHg 14 mmHg External The pupils are [...] 0.69 mm3 - Inferior loss Visual [place] (01-28-23) TRUNG 24-2: 2/11FLs, superior arcuate depression MD-4.39 TRUNG 24-2: 2/12FLs, dense superior arcuate nearly altitudinal defect MD-15.31 Visual Burnham (09-03-22) TRUNG 10-2: Baseline - superior arcuate depression not yet to fixation MD-2.12 TRUNG 10-2: Baseline - dense superior arcuate not yet up to fixation MD-8.28 Pachymetry ? Confrontation VF Full Other (superior defect, full other quads) Fundus photo (03/26/22) Glaucomatous cupping noted, no disc heme noted Glaucomatous cupping noted, no disc heme noted Impression: 1. 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 IOP is at target OU today. VF testing remains grossly stable compared to baselines. - No family hx - Avg CCT [...] up with me in 4-5 months for dilation and OCTs Notes to: -Yamileth Tovar, OD Performed and dictated by Dr. Gladys England to scribe Roe Jin No annotated images are attached to the encounter. documented in this encounter Plan of Treatment Upcoming Encounters Date Type Department Care Team (Late st Contact Info) Description 06/08/2024 10:40 AM EDT Eye Care Visit The [facility] [place] 17 [facility] [address] [place] [phone] Gladys England MD [address] [place] [address] documented as of this encounter Visit Diagnoses Diagnosis Pseudoexfoliative glaucoma, both eyes, moderate stage- Primary Combined form of senile cataract of both eyes documented in this encounter Care Teams Salon Leader Relationship Specialty Start Date End Date Uyen Gerard MD [address] [facility] [place] [address] PCP - General Family Medicine 08/27/21 documented as of this encounter
--- OUTSIDE RECORDS SUMMARY | 2024-04-26 02:22 | XMS_ITS | Encounter Summary ---
Author Organization [employer]: [facility] & [facility] Care Address [facility] [phone] [place] [address] Care Team Providers Care Community Relations Rep Name Role Phone Uyen Gerard MD Primary Care Provider [phone] Reason for Visit * Reason Comments Refill/Eprescribe Encounter Details Date Type Department Care Team (Late st Contact Info) Description 07/28/2022 Refill The [facility] Eye [facility] [address] [facility] [place] [address] Gladys England MD [address] [place] [address] Refill/Eprescribe Social History Tobacco Use Types Packs/Day [...] encounter Miscellaneous Notes * Telephone Encounter - Tye Mccall - 07/28/2022 10:51 AM EST Rx request pending doctor's signature documented in this encounter Plan of Treatment Upcoming Encounters Date Type Department Care Team (Late st Contact Info) Description 06/08/2024 10:40 AM EDT Eye Care Visit [facility] [place] [address] [place] [address] Gladys England MD [address] [place] [address] documented as of this encounter Visit Diagnoses Not on filedocumented in this encounter Care Teams Community Relations Rep Relationship Specialty Start Date End Date Uyen Gerard MD [facility] [place] [address] PCP - General Family Medicine 08/27/21 documented as of this encounter
--- OUTSIDE RECORDS SUMMARY | 2024-04-26 02:22 | XMS_ITS | Encounter Summary ---
Author Organization [facility]: [facility] Address [facility] [phone] [place] [address] Care Team Providers Care Manager It Security Name Role Phone Uyen Gerard MD Primary Care Provider [phone] Encounter Details Date Type Department Care Team (Late st Contact Info) Description 01/08/2024 Telephone [facility] [address] [place] [phone] Gladys England MD [address] [place] [address] Social History Tobacco Use Types Packs/Day Years [...] encounter Miscellaneous Notes * Telephone Encounter - Carlyn García - 01/08/2024 9:09 AM EDT Called patient and talked with her about where [facility] said we can seek her in for an appointment. The new appointment will be 06-08-24 @10:40am in [place] with Dr England. She was all set with that DOS and time documented in this encounter Plan of Treatment Upcoming Encounters Date Type Department Care Team (Late st Contact Info) Description 06/08/2024 10:40 AM EDT Eye [facility] Visit [facility] [place] 17 [facility] [address] [place] [address] Gladys England MD [address] [place] [address] documented as of this encounter Visit Diagnoses Not on filedocumented in this encounter Care Teams Manager It Security Relationship Specialty Start Date End Date Uyen Gerard MD [address] [place], [place] [address] [address] PCP - General Family Medicine 08/27/21 documented as of this encounter
--- OUTSIDE RECORDS SUMMARY | 2024-04-26 02:22 | XMS_ITS | Encounter Summary ---
Author Organization [facility]: [facility] Address [facility] [phone] [place] [address] Care Team Providers Care Damage Prevention Coordinator Name Role Phone Unavailable Primary Care Provider Unavailabl e Encounter Details Date Type Department Care Team (Late st Contact Info) Description 03/03/2018 [facility] Oncology and Hematology [address] [place] [phone] Social History Tobacco Use Types Packs/Day Years [...] Progress Notes * Mirta Sorenson MD - 03/03/2018 12:18 PM EDT [facility] Hematology / Oncology TALITA VELASCO was [...] her last visit, she has had no newprocedures, new diagnoses or new medications ; No family member has been diagnosed with any form ofcancer in the past year; In August 2016, she was diagnosed with atrial fibrillation and is currently on Eliquis; she continues to have shortness of breath with inclines; she is getting over an upper respiratory tract infection; She had [place] [facility]; She went to to [facility] in 2014. Previously she had a left ankle fracture which needed internal fixation in July 2013 while traveling from [place] to [place]; She was previously seen by Dr. 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 She now has a primary care and pulmonary physician at [place], [place] . 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 between [place] and [place]; Patient originally lived and worked in [facility] Review of Systems The patient denies [...] Please provide one pair of thigh-high compression qskmfzuhf-45-60 mm mercury LOSARTAN POTASSIUM 25 MG ORAL TABLET (LOSARTAN POTASSIUM) take 2 tab daily VITAMIN C CAPSULE (ASCORBIC ACID CAPS) 1000u once daily ELIQUIS 5 MG ORAL TABLET (APIXABAN) take 1 tab twice a day LOPRESSOR HCT 50-25 MG ORAL TABLET (METOPROLOL-HYDROCHLOROTHIAZIDE) take 3 tabs daily TRELEGY ELLIPTA AEROSOL POWDER BREATH ACTIVATED ([id number]-[id number]-MNPNTI AEPB) once a day Vital Signs: Patient [...] Please provide one pair of thigh-high compression rndlevjmo-82-08 mm mercury LOSARTAN POTASSIUM 25 MG ORAL TABLET (LOSARTAN POTASSIUM) take 2 tab daily VITAMIN C CAPSULE (ASCORBIC ACID CAPS) 1000u once daily ELIQUIS 5 MG ORAL TABLET (APIXABAN) take 1 tab twice a day LOPRESSOR HCT 50-25 MG ORAL TABLET (METOPROLOL-HYDROCHLOROTHIAZIDE) take 3 tabs daily TRELEGY ELLIPTA AEROSOL POWDER BREATH ACTIVATED (DVEXRPJEQJP-GVAFZVFTX-YVPTTA AEPB) once a day Plan: Renal cancer [...] been stable since 2004. Followup with manager terminal; She is aware that she can call me with any questions regarding kidney cancer or new symptoms. The patient is moving to [place], I again suggested that she switch her oncologic care to the [facility].She will think about [...] care in [place]-primary care issues like screening, vaccinationand health maintenance [...] Eye [facility] [place] 17 [facility] 104 [place] [address] Gladys England MD [address] [place] [address] documented as of this encounter Visit Diagnoses Not on filedocumented in this encounter
--- OUTSIDE RECORDS SUMMARY | 2024-04-26 02:22 | XMS_ITS | Encounter Summary ---
Author Organization [facility]: [facility] Address [facility] [phone] [place] [address] Care Team Providers Care Embroidery Cutter Name Role Phone Unavailable Primary Care Provider Unavailabl e Encounter Details Date Type Department Care Team (Late Contact Info) Description 12/13/2010 10:50 AM EDT Hospital Encounter [facility] Laboratory Services [address] [place] [address] Social History Tobacco Use Types Packs/Day Years [...] Eye [facility] Visit [facility] [place] 17 [facility] 104 [place] [address] Gladys England MD [address] [place] [address] documented as of this encounter Visit Diagnoses Not on filedocumented in this encounter
--- OUTSIDE RECORDS SUMMARY | 2024-04-26 02:22 | XMS_ITS | Encounter Summary ---
Author Organization [facility]: [facility] Address [facility] [phone] [place] [address] Care Team Providers Care Special Delivery Mail Carrier Name Role Phone Uyen Gerard MD Primary Care Provider [phone] Encounter Details Date Type Department Care Team (Late st Contact Info) Description 09/30/2023 [facility] [address] [place] [phone] Gladys England MD [address] [place] [address] Social History Tobacco Use Types Packs/Day Years [...] encounter Miscellaneous Notes * Telephone Encounter - Albertina De La Cruz - 09/30/2023 11:54 AM EST Katie Velasco, patient's daughter, is calling back to discuss further the testing that was done to patient. She would like Dr England to give her a call back when she is able to. Call back number [phone] * Telephone Encounter - Gladys England MD - 09/30/2023 11:11 AM EST Per pt request, I called pt's daughter, Katie MD [place] in [place]. .Left message summarizing her visit with me today and instructed to call back at main number if she would like to further discuss. documented in this encounter Plan of Treatment Upcoming Encounters Date Type Department Care Team (Late st Contact Info) Description 06/08/2024 10:40 AM EDT Eye Care Visit [facility] [place] 17 [facility] 104 [place] [address] Gladys England MD [address] [place] [address] documented as of this encounter Visit Diagnoses Not on filedocumented in this encounter Care Teams Special Delivery Mail Carrier Relationship Specialty Start Date End Date Uyen Gerard MD [facility] [place] [address] PCP - General Family Medicine 08/27/21 documented as of this encounter
--- OUTSIDE RECORDS SUMMARY | 2024-04-26 02:22 | XMS_ITS | Encounter Summary ---
Author Organization [facility]: [facility] & [facility] Address [facility] [phone] [place] [address] Care Team Providers Care Prosecuting Attorney Name Role Phone Uyen Gerard MD Primary Care Provider [phone] Reason for Visit * Reason Comments Follow-up Evaluation For Glaucoma Encounter Details Date Type Department Care Team (Latest Contact Info) Description 01/06/2024 8:30 AM EDT Eye Care Visit [facility] [place] 17 [facility] 104 [place] [phone] Gladys England MD [address] [place] [address] Pseudoexfoliative glaucoma, both eyes, moderate stage (Primary [...] Progress Notes * Gladys England MD - 01/06/2024 8:30 AM EDT Chief Complaint: Patient presents with: Follow-up Evaluation For Glaucoma History of Present Illness: Patient presents in office for an IOP check after starting Dorzolamide.Patient states that she is tolerating the new drop well. She does occasionally get some burning priyanka weird taste in her mouth. Patient oriented to person, place and time: [...] ? 14-16mmHg Examination Right Left Visual Acuity 20/40+1 20/25-1 Pinhole Vision 20/ni 20/ Intraocular Pressure 14 mmHg (Applanation) 15 mmHg (Applanation) External The pupils are . The lids and ocular adnexa are normal. Ocular motility is full. Anterior Segments The conjunctivae and corneae are normal. The anterior chambers are deep. The irides are normal. Right eye has early nasal band K. Trace injection Lens 1-2+NS/CC 2+NS/CC - PXE on anterior capsule and [...] to fixation MD-10.12 Pachymetry ? Confrontation VF Fundus photo (03/26/22) Glaucomatous cupping noted, no disc heme noted Glaucomatous cupping noted, no disc heme noted Impression: 1. 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 IOP has improved and is within target range in both eyes today since starting Dorzolamide in addition to Latanoprost - Disk heme OD (06-10-2023) - No [...] causes severe vision loss. 2. Medications - Latanoprost, both eyes at bedtime - Dorzolamide BID OU 3. Follow up with me in 4 months for dilation and OCT RNFL/RGCL Notes to: -[facility] in [place], [place] Performed and dictated by Dr. Gladys England to delmyibe BOONE Haile, OSC No annotated images are attached to the encounter. 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
[2024-04-26 17:24] LABS: Anion Gap 6.6 mmol/L (3-11); BUN 31 mg/dL (7-18); CO2 28.4 mmol/L (21.0-32.0); CREATININE 1.3 mg/dL (0.55-1.02); Calcium 9.3 mg/dL (8.5-10.1); Chloride 96 mmol/L (98-107); Glucose 107 mg/dL (74-106); Magnesium 1.9 mg/dL (1.8-2.4); PHOSPHORUS 3.6 mg/dL (2.6-4.7); Sodium 131 mmol/L (136-145); Uric Acid 5.5 mg/dL (2.6-6.0)
== END 2024-04-26 02:09 | disposition home or self-care (01) ==
LOC: LBO 02:08
PROVIDERS: PCP Family Medicine; Visit Provider Internal Medicine Nephrology
DX: N18.30 Chronic kidney disease, stage 3 unspecified (principal)
CPT/HCPCS: 36415; 80048; 83735; 84100; 84550

== ENCOUNTER 2024-07-08 14:42 | Outpatient (REF) | payer MEDICARE, OTHER, SELFPAY ==
--- OUTSIDE RECORDS SUMMARY | 2024-07-08 14:53 | XMS_ITS | Encounter Summary ---
Author Organization [facility] Address [address] [place] [address] Care Team Providers Care Superintendent Marine Name Role Phone Nicolás Gallagher MD Primary Care Provider Ambar pascual Encounter Details Date Type Department Care Team (Latest Contact Info) Description 10/31/2020 12:11 PM EST - 10/31/2020 11:59 PM EST Hospital Encounter [facility] [address] [place] [address] Chronic kidney disease, stage 3 unspecified Social [...] 4.9 MG/DL 10/31/2020 12:56 PM EST [facility] Serum (Serum or Plasma) 10/31/2020 12:25 PM EST 10/31/2020 12:26 PM EST Hsp Historical Provider CHEMISTRY ORDERA BLES Performing Organization Address City/[facility]/ZIP Co de Phone Number [facility] Dr. Dianelys Corral [address] [place] [address] * Albumin (10/31/2020 12:25 PM EST) Albumin 3.4 3.4 - 5.0 g/dL 10/31/2020 12:55 PM EST [facility] Serum (Serum or Plasma) 10/31/2020 12:25 PM EST 10/31/2020 12:26 PM EST Hsp Historical Provider CHEMISTRY ORDERA BLES Performing Organization Address [facility] Co de Phone Number Anneliese [facility] Dr. Dianelys Corral [address] [place] [address] * Uric Acid (10/31/2020 12:25 PM EST) Uric Acid 3.9 2.6 - 6.0 MG/DL 10/31/2020 12:55 PM EST [facility] Serum (Serum or Plasma) 10/31/2020 12:25 PM EST 10/31/2020 12:26 PM EST Hsp Historical Provider CHEMISTRY ORDERA BLES Performing Organization Address City/[facility]/ZIP Co de Phone Number [facility] Dr. Dianelys Corral [address] [place] [address] * Vitamin D 25 Hydroxy (10/31/2020 12:25 PM EST) Pathologist [facility] Vitamin D, 25-Hydroxy, Total 61.1 ng/mL 10/31/2020 [...] MECCA Anneliese [facility] Dr. Dianelys Corral [address] [place], [place] [phone] * (ABNORMAL) CBC with Auto Differential (10/31/2020 12:25 PM EST) Pathologist [facility] WBC 7.7 4.0 - 10.0 K/uL 10/31/2020 [...] Provider HEMATOLOGY ORDER DAISY Performing Organization Address [facility] Co de Phone Number [facility] Dr. Dianelys Corral [address] [place] [address] * PTH, Intact (10/31/2020 12:25 PM EST) [...] Provider CHEMISTRY ORDERA BLES Performing Organization Address [facility] Co de Phone Number [facility] Dr. Dianelys Corral [address] [place] [address] * (ABNORMAL) Basic Metabolic Panel (10/31/2020 12:25 [...] BLES [facility] Dr. Dianelys Corral [address] [place], [place] [phone] documented in this encounter Visit Diagnoses Diagnosis Chronic kidney disease, stage 3 unspecified (HCC) documented in this encounter Care Teams Superintendent Marine Relationship Specialty Start Date End Date Nicolás Gallagher MD PCP - General 10/27/20 documented as of this encounter
--- OUTSIDE RECORDS SUMMARY | 2024-07-08 14:53 | XMS_ITS | Encounter Summary ---
Author Organization [facility] [place] [address] Care Team Providers Care Music Adapter Name Role Phone Uyen Gerard MD Primary Care Provider [phone] Encounter Details Date Type Department Care Team (Latest Contact Info) Description 05/26/2024 Travel Social History Tobacco Use Types Packs/Day [...] Care Team (Late st Contact Info) Description 01/18/2025 1:30 PM EDT Office Visit [place] [address] Carmelina Donaldson MD [facility] [place] [address] documented as of this encounter Visit Diagnoses Not on filedocumented in this encounter Care Teams Music Adapter Relationship Specialty Start Date End Date Uyen Gerard MD [facility] [address] [place] [address] PCP - General 07/01/13 documented as of this encounter
--- OUTSIDE RECORDS SUMMARY | 2024-07-08 14:53 | XMS_ITS | Clinical Summary ---
Author Organization [facility] Address [facility] [place] [address] Care Team Providers Care Hotel Custodian Name Role Phone Uyen Gerard MD Primary Care Provider Allergies Active Allergy Reactions Criticality Noted Date Comments Codeine Phosphate Medications Medication Sig Dispensed Refills Start Date End Date Status DOCUSATE SODIUM (COLACE ORAL) Take by mouth daily. 01/02/2009 Active SUMAtriptan (Imitrex) 25 mg Tablet [...] times daily. 540 mL 1 01/02/2024 Active Additional Information Patient taking differently:1 ampule NebulizationDAILY, Reported on 05/26/2024 levalbuteroL (Xopenex HFA) 45 mcg/actuation inhaler (HFA) Inhale 1-2 puffs into the lungs every 4 hours as needed. 1 each 3 01/20/2024 Active dorzolamide (Trusopt) 2 % Drops Place into both eyes 2 times daily. 09/30/2023 Active fluticasone furoate-umeclidiniu m-vilanteroL (Trelegy Ellipta) 100-62.5-25 mcg inhaler (DPI) Inhale 1 puff into the lungs daily. 02/20/2020 Active Eliquis 2.5 mg tablet Take 2.5 mg by mouth 2 times daily. 02/11/2024 Active hydroCHLOROthiazide 12.5 mg tablet Take 12.5 mg by mouth Daily @ 0600. 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 current use of antiarrhythmic medical therapy 08/18/2021 Venous insufficiency 06/08/2020 Chronic renal insufficiency, stage III (moderate ) 08/08/2019 Mixed hyperlipidemia 08/08/2019 Paroxysmal atrial fibrillation 08/08/2019 Sleep apnea in adult 08/08/2019 Stucco keratosis 01/02/2015 Seborrheic keratosis 01/02/2015 Dermal nevus of other site 01/02/2015 Solar lentigo 01/02/2015 Hypertension 06/02/2011 Renal cell cancer 06/02/2011 COPD (chronic obstructive pulmonary disease) Encounters Date Type Department Care Team Description 05/31/2024 12:46 PM EDT - 05/31/2024 11:59 PM EDT Hospital Encounter [place] [address] Interstitial lung disease Discharge Disposition: Home 05/31/2024 Travel 05/26/2024 1:30 PM EDT Office Visit [place] [address] Carmelina Donaldson MD Bronchiectasis without complication 05/26/2024 Travel 05/24/2024 Travel from Last 3 Months Immunizations Name [...] Sign Reading Time Taken Comments Blood Pressure 121/59 05/26/2024 1:39 PM EDT Pulse 78 05/26/2024 1:39 PM EDT Temperature 36.4 ??C (97.5 ??F) 05/26/2024 1:39 PM ED T Respiratory Rate 11 05/26/2024 1:39 PM EDT Oxygen Saturation 98% 05/26/2024 1:39 PM EDT Inhaled Oxygen Concentration - - Weight 57.2 kg (126 lb 3.2 oz) 05/26/2024 1:39 P M EDT w/shoes Height 160 cm (5' 3) 01/25/2024 3:07 PM EDT Body Mass Index 22.36 01/25/2024 3:07 PM EDT Plan of Treatment Upcoming Encounters Date Type Department Care Team (Late st Contact Info) Description 01/18/2025 1:30 PM EDT Office Visit [place] [address] Carmelina Donaldson MD [facility] [address] [place] [address] Health Maintenance Due Date Last Done Comments Pneumoccocal Vaccine: 65+ (1 of 2 - PCV) 1941 Tetanus/Diphtheria/Pertussis Vaccines (1 - Tdap) 01/15/1956 Zoster vaccine (1 of 2) 1987 Advance Directive 01/15/1992 Bone Density Scan 2002 Covid-19 Vaccine (1 - 2022-2 4 season) 2024 Influenza (Flu) vaccine (1 o f 1 - Influenza standard series) 05/08/2024 06/17/2012, 06/03/2011, 07/22/2002, Additional history exists Procedures Procedure Name Priority Date/Time Associated Diagnosis Comments PFT HIGH ALTITUDE SIMULATION TEST (HAST) Routine 05/31/2024 12:00 AM EDT Interstitial lung disease LAB SCAN 04/26/2024 12:00 AM EDT LAB SCAN 04/26/2024 12:00 AM EDT from Last 3 Months Results * High Altitude Test (HAST) (05/31/2024 12:00 AM EDT) Narrative COMPAS PFT - 05/31/2024 12:00 AM EDT FINDINGS: Baseline SpO2 98% on room air and lowest SpO2 on 15% was 91%. IMPRESSION: No indication for supplemental oxygen for air travel or altitude to 8000 feet. Procedure Note Wilbur Vann MD - 06/01/2024 FINDINGS: Baseline SpO2 98% on room air and lowest SpO2 on 15% was 91%. IMPRESSION: No indication for supplemental oxygen for air travel oraltitude to 8000 feet. Carmelina Donaldson MD PFT ORDERABLES COMPAS PFT * Scan Doc: Lab (04/26/2024 12:00 AM EDT) Only the most recent of2 resultswithin the time period is included. Narrative 04/26/2024 12:00 AM EDT Ordered by an unspecified provider. Scanning Provider MEDIA MGR SCAN EXT O RDR/RSLT from Last 3 Months Care Teams Hotel Custodian Relationship Specialty Start Date End Date Uyen Gerard MD [address] [place] [address] PCP - General 07/01/13
--- OUTSIDE RECORDS SUMMARY | 2024-07-08 14:53 | XMS_ITS | Encounter Summary ---
Author Organization [facility] [place] [address] Care Team Providers Care It Solutions Architect Name Role Phone Uyen Gerard MD Primary Care Provider [phone] Encounter Details Date Type Department Care Team (Latest Contact Info) Description 05/31/2024 12:46 PM EDT - 05/31/2024 11:59 PM EDT Hospital [place] [address] Interstitial lung disease Discharge Disposition: Home Social [...] Sig Dispensed Refills Start Date End Date Eliquis 2.5 mg tablet Take 2.5 mg by mouth 2 times daily. 02/11/2024 hydroCHLOROthiazide 12.5 mg tablet Take 12.5 mg by mouth Daily @ 0600. 02/08/2024 dorzolamide (Trusopt) 2 % Drops Place into both eyes 2 times daily. 09/30/2023 fluticasone khphvaa-mkgiswihveqv-yh lanteroL (Trelegy Ellipta) 100-62.5-25 mcg inhaler (DPI) Inhale 1 puff into the lungs daily. 02/20/2020 levalbuteroL (Xopenex HFA) 45 mcg/actuation [...] mouth as needed. DOCUSATE SODIUM (COLACE ORAL) Take by mouth daily. 01/02/2009 documented as of this encounter Plan of Treatment Upcoming Encounters Date Type Department Care Team (Late st Contact Info) Description 01/18/2025 1:30 PM EDT Office [place] [address] Carmelina Donaldson MD [facility] [place] [address] documented as of this encounter Procedures Procedure Name Priority Date/Time Associated Diagnosis Comments PFT HIGH ALTITUDE SIMULATION TEST (HAST) Routine 05/31/2024 12:00 AM EDT Interstitial lung disease documented in this encounter Results * High Altitude Test (HAST) (05/31/2024 [...] fibrosis documented in this encounter Care Teams It Solutions Architect Relationship Specialty Start Date End Date Uyen Gerard MD [facility] [address] [place] [address] PCP - General 07/01/13 documented as of this encounter
--- OUTSIDE RECORDS SUMMARY | 2024-07-08 14:53 | XMS_ITS | Clinical Summary ---
Author Organization [facility] Address [address] [place] [address] Care Team Providers Care Veterinarian Assistant Name Role Phone Nicolás Gallagher MD Primary Care Provider Ambar pascual Social History Tobacco Use Types Packs/Day Years Used Date Smoking Tobacco: Never Assessed Sex and Gender Information Value Date Recorded Sex Assigned at Not on file Gender Identity Not on file Sexual Orientation Not on file Plan of Treatment Not on file Care Teams Veterinarian Assistant Relationship Specialty Start Date End Date Nicolás Gallagher MD PCP - General 10/27/20
--- OUTSIDE RECORDS SUMMARY | 2024-07-08 14:53 | XMS_ITS | Encounter Summary ---
Author Organization [facility] [place] [address] Care Team Providers Care Senior Sql Database Developer Name Role Phone Uyen Gerard MD Primary Care Provider [phone] Encounter Details Date Type Department Care Team (Latest Contact Info) Description 05/31/2024 Travel Social History Tobacco Use Types Packs/Day [...] 1:30 PM EDT Office [place] [address] Carmelina Donaldson MD [facility] [place] [address] documented as of this encounter Visit Diagnoses Not on filedocumented in this encounter Care Teams Senior Sql Database Developer Relationship Specialty Start Date End Date Uyen Gerard MD [facility] [address] [place] [address] PCP - General 07/01/13 documented as of this encounter
--- OUTSIDE RECORDS SUMMARY | 2024-07-08 14:53 | XMS_ITS ---
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 Treatments may have been administered in another system. Lifetime Dose Tracking * Chemical Lifetime Dose Automatic Entry Manual Entr y DLP (Dose Length Product) 134 mGy-cm 134 mGy-cm 0 mGy-cm CTDI (CT Dose Index) Min 3.69 mGy 3.69 mGy 0 m Gy CTDI (CT Dose Index) Max 3.69 mGy 3.69 mGy 0 m Gy
--- OUTSIDE RECORDS SUMMARY | 2024-07-08 14:54 | XMS_ITS | Encounter Summary ---
Author Organization [facility]ly [facility] [place] [address] Care Team Providers Care Hospice Entrance Attendant Name Role Phone Uyen Gerard MD Primary Care Provider [phone] Encounter Details Date Type Department Care Team (Late st Contact Info) Description 03/01/2023 Orders Only [place] [address] Manuel Ricks MD [facility] [place] [address] Stage 3a chronic kidney disease; Hyponatremia Social [...] 1:30 PM EDT [place] [address] Carmelina Donaldson MD [facility] [place] [address] documented as of this encounter Results * (ABNORMAL) Free Light Chains, Serum (03/02/2023 3:02 PM EDT) [place] Free Light Chain 3.61(H) 0.72 - 2.75 mg/dL [facility] Lambda Free Light Chain 3.04(H) 0.57 - 2.15 mg/dL [facility] [place]/Lambda FLC Ratio 1.1875 0.4000 - 2.5800 [facility] Blood 03/02/2023 3:02 PM EDT 03/02/2023 3:11 PM EDT Narrative Resulting Agency Comment Spec In Lab Manuel Shari Ricks MD CHEMISTRY ORDERABLES Performing Organization Address [facility] Co de Phone Number [facility] [place] [address] * (ABNORMAL) Protein Electrophoresis, serum (03/02/2023 3:02 PM EDT) Total Prot Electrophoresis 7.8 6.1 - 8.0 g/dL [facility] Albumin Electrophoresis 4.41 3.20 - 5.20 g/dL [facility] Alpha 1 Globulin 0.20 0.10 - 0.30 g/dL [facility] Alpha 2 Globulin 0.89 0.40 - 0.90 g/dL [facility] Beta Globulin 0.76 0.50 - 1.00 g/dL [facility] Gamma Globulin 1.54(H) 0.50 - 1.30 g/dL [facility] M1 Band None Detected None Detected [facility] Blood 03/02/2023 3:02 PM EDT 03/02/2023 3:11 PM EDT Narrative Resulting Agency Comment Spec In Lab Manuel Shari Ricks MD CHEMISTRY ORDERABLES Performing Organization Address [facility] Co de Phone Number [facility] [place] [address] * Osmolality (03/02/2023 3:02 PM EDT) Osmolality 288 275 - 295 mOsm/kg [facility] Blood 03/02/2023 3:02 PM EDT 03/02/2023 3:11 PM EDT Narrative Resulting Agency Comment Spec In Lab Manuel Ricks MD CHEMISTRY ORDERABLES Performing Organization Address [facility] Co de Phone Number [facility] [place] [address] * Magnesium (03/02/2023 3:02 PM EDT) Magnesium 0.89 0.69 - 1.07 mmol/L [facility] Blood 03/02/2023 3:02 PM EDT 03/02/2023 3:11 PM EDT Narrative Resulting Agency Comment Spec In Lab Manuel Ricks MD CHEMISTRY ORDERABLES Performing Organization Address [facility] de Phone Number [facility] [place] [address] * (ABNORMAL) Comprehensive metabolic panel (non-fasting) (03/02/2023 3:02 PM EDT) Glucose 90 65 - 199 mg/dL [facility] Comment:Diabetes: >=200 mg/d L plus symptoms Blood Urea Nitrogen 30(H) 8 - 18 mg/dL [facility] Creatinine 1.17 0.70 - 1.20 mg/dL [facility] Sodium 134(L) 135 - 145 mmol/L [facility] Potassium 4.6 3.5 - 5.0 mmol/L [facility] Comment: Please note: ??Patients with WBC >100,000 may have falsely elevated Potassium levels. ??For accurate Potassium quantification in these patients send serum separator tube (gold top) for subsequent determinations. ??Contact the Clinical Chemistry Laboratory if there are any questions. Chloride 96(L) 98 - 107 mmol/L [facility] Carbon Dioxide 27 22 - 31 mmol/L [facility] Anion Gap 11 5 - 15 mmol/L [facility] Calcium 9.7 8.5 - 10.5 mg/dL [facility] Protein, Total 8.3(H) 6.1 - 8.0 g/dL [facility] Albumin 4.2 3.2 - 5.2 g/dL [facility] Aspartate Aminotransferase 24 0 - 30 unit/L [facility] Alanine Aminotransferase 14 0 - 30 unit/L [facility] Alkaline Phosphatase 89 35 - 105 unit/L [facility] Bilirubin, Total 0.4 0.2 - 1.3 mg/dL [facility] Est Glomerular Filtration Rate 45(L) >=60 mL/min/1. 73 m?? [facility] Comment: This patient's estimated GFR [...] Ricks MD CHEMISTRY ORDERABLES Performing Organization Address City/[facility]/ZIP Co de Phone Number [facility] [place] [address] * PTH (03/02/2023 3:02 PM EDT) Parathyroid Hormone 48 15 - 65 pg/mL [facility] Blood 03/02/2023 3:02 PM EDT 03/02/2023 3:11 PM EDT Narrative Resulting Agency Comment Spec In Lab Manuel Ricks MD CHEMISTRY ORDERABLES Performing Organization Address City/[facility]/ZIP Co de Phone Number [facility] [place] [address] * Phosphorus (03/02/2023 3:02 PM EDT) Phosphorus 3.9 2.5 - 4.5 mg/dL [facility] Blood 03/02/2023 3:02 PM EDT 03/02/2023 3:11 PM EDT Narrative Resulting Agency Comment Spec In Lab Manuel Ricks MD CHEMISTRY ORDERABLES Performing Organization Address [facility] Co de Phone Number [facility] [place] [address] * Sodium, urine, random (03/02/2023 3:00 PM EDT) Sodium, Urine 50 mmol/L [facility] Urine 03/02/2023 3:00 PM EDT 03/02/2023 3:13 PM EDT Narrative Resulting Agency Comment Spec In Lab Manuel Ricks MD URINE ORDERABLES Performing Organization Address [facility] Co de Phone Number [facility] [place] [address] * Protein Electrophoresis, urine, random (03/02/2023 3:00 PM EDT) Protein, Urine 8 0 - 12 mg/dL [facility] U Albumin 38 % total [facility] Globulin, Urine 62 % total [facility] M1 Band, Urine None Detected [facility] UPEP Comments See Note [facility] Comment: There is no evidence of clonal free light chains in this patient's urine sample. Urine 03/02/2023 3:00 PM EDT 03/02/2023 3:13 PM EDT Narrative Resulting Agency Comment Spec In Lab Manuel Ricks MD URINE ORDERABLES Performing Organization Address [facility] Co de Phone Number [facility] [place] [address] documented in this encounter Visit Diagnoses Diagnosis Stage 3a chronic kidney disease Hyponatremia Hyposmolality and/or hyponatremia documented in this encounter Care Teams Hospice Entrance Attendant Relationship Specialty Start Date End Date Uyen Gerard MD [address] [place] [address] PCP - General 07/01/13 documented as of this encounter
--- OUTSIDE RECORDS SUMMARY | 2024-07-08 14:54 | XMS_ITS | Encounter Summary ---
Author Organization [facility] [place] [address] Care Team Providers Care Manager Work Name Role Phone Uyen Gerard MD Primary Care Provider [phone] Encounter Details Date Type Department Care Team (Latest Contact Info) Description 01/27/2024 8:48 AM EDT - 01/27/2024 11:59 PM EDT Hospital En[place] [address] Bronchiectasis without complication Discharge Disposition: Home Social [...] both eyes 2 times daily. 09/30/2023 fluticasone qyeiwbq-iukhtbqbmmeo-fe lanteroL (Trelegy Ellipta) 100-62.5-25 mcg inhaler (DPI) [...] 1:30 PM EDT Office Visit Pulmonology at [facility] [place] [address] Carmelina Donaldson MD [facility] [place] [address] documented as of this encounter Procedures Procedure [...] with exertion. Carmelina Donaldson MD PFT ORDERABLES Performing Organization Address City/State/[facility] Co de Phone Number [facility] documented in this encounter Visit Diagnoses Diagnosis Bronchiectasis without complication Bronchiectasis without acute exacerbation documented in this encounter Care Teams Manager Work Relationship Specialty Start Date End Date Uyen Gerard MD [address] [place] [address] PCP - General 07/01/13 documented as of this encounter
--- OUTSIDE RECORDS SUMMARY | 2024-07-08 14:54 | XMS_ITS | Encounter Summary ---
[place] [address] Care Team Providers Care Mine Utility Operator Name Role Phone Uyen Gerard MD Primary Care Provider [phone] Encounter Details Date Type Department Care Team (Late st Contact Info) Description 04/15/2022 [place] [address] Joyce Duval LPN Social History [...] order for CT Chest wo Contrast to [facility] Radiology Prior authorization approved Fax submission confirmation time stamped for 03/25/22 11:01 am documented in this encounter Plan of Treatment Upcoming Encounters Date Type Department Care Team (Late st Contact Info) Description 01/18/2025 1:30 PM EDT [place] [address] Carmelina Donaldson MD [facility] [place] [address] documented as of this encounter Visit Diagnoses Not on filedocumented in this encounter Care Teams Mine Utility Operator Relationship Specialty Start Date End Date Uyen Gerard MD [address] [facility] 1 [place] [address] PCP - General 07/01/13 documented as of this encounter
--- OUTSIDE RECORDS SUMMARY | 2024-07-08 14:54 | XMS_ITS | Encounter Summary ---
Author Organization [facility] [place] [address] Care Team Providers Care Home Specialist Name Role Phone Uyen Gerard MD Primary Care Provider [phone] Encounter Details Date Type Department Care Team (Latest Contact Info) Description 05/26/2024 1:30 PM EDT Office [place] [phone] Carmelina Donaldson MD [facility] [address] Bronchiectasis without complication Social History Tobacco Use [...] 05/26/2024 1:39 P M EDT w/shoes Height - - Body Mass Index 22.36 01/25/2024 3:07 PM EDT documented in this encounter Progress Notes * Carmelina Donaldson MD - 05/26/2024 1:30 PM EDT Images from the original note were not included. [facility] Section of Pulmonary and Critical Care Medicine Outpatient Follow Up Date of Encounter: 05/26/2024 History of Present Illness: Jerri Velasco is [...] July 2023. She returns today with her daughter and feels that her symptoms are stable. She continues to have some exertional dyspnea and a productive cough in the morning. She uses Trelegy and Duo Nebs. She is not dyspneic at rest and is able to perform all of her ADLs without significant dyspnea. She feels like she is exercising less. She denies fevers or chills. She denies nocturnal symptoms although she breathes better on her right side. She denies joint swelling or redness, skin rash, or GERD. Overall she feels her symptoms are stable. Current Medications: Current Outpatient Medications on File Prior to Visit Medication Sig Dispense Refill Eliquis 2.5 mg tablet Take 2.5 mg by mouth 2 times daily. hydroCHLOROthiazide 12.5 mg tablet Take 12.5 mg by mouth Daily @ 0600. dorzolamide (Trusopt) 2 % Drops Place into both eyes 2 times daily. fluticasone znagzkb-vcibjxcprmmw-dawyabnvaN (Trelegy Ellipta) 100-62.5-25 mcg inhaler (DPI) Inhale 1 puff into the lungs daily. levalbuteroL (Xopenex HFA) 45 mcg/actuation inhaler (HFA) Inhale 1-2 puffs into the lungs every 4 hours as needed. 1 each 3 levalbuteroL (Xopenex) 0.63 mg/3 mL Solution for Nebulization Take 3 mLs by nebulization 2 times daily. (Patient taking differently: Take 1 ampule by nebulization daily.) 540 mL 1 spironolactone (Aldactone) 25 mg tablet Take 0.5 tablets by mouth daily. 45 tablet 3 latanoprost (Xalatan) 0.005 % Drops Place 1 drop into both eyes nightly. metoprolol succinate XL (Toprol-XL) 50 mg Tablet [...] SODIUM (COLACE ORAL) Take by mouth daily. apixaban (Eliquis) 5 mg Tablet Take 5 mg by mouth 2 times daily. No current facility-administered medications on file [...] Office Visit from 03/31/2014 in Pulmonology at [facility] Office Visit from 09/16/2013 in Pulmonology at [facility] Office Visit from 03/11/2013 in Pulmonology at [facility] PFT Results Peak Flow 300 L/min 275 L/min 300 L/min Additional PFT Data (if needed) CULTURES: PERTINENT LABS: Metabolic Parameters Lab Results Component Value Date NA 132 (L) 01/25/2024 K 4.5 01/25/2024 CL 98 01/25/2024 CO2 27 01/25/2024 ANIONGAP 7 01/25/2024 BUN 28 (H) 01/25/2024 CREATININE 1.28 (H) 01/25/2024 GLUCOSE 84 01/25/2024 CALCIUM 9.4 01/25/2024 MAGNESIUM 0.92 01/25/2024 PHOS 3.8 01/25/2024 Hematologic Parameters Lab Results Component Value Date WBC 7.8 01/25/2024 NEUTOPHILPCT 65.8 01/25/2024 IMMGRANPCT 0.50 01/25/2024 LYMPHOPCT 19.9 01/25/2024 MONOPCT 10.8 01/25/2024 BASOPCT 1.0 01/25/2024 EOSPCT 2.0 01/25/2024 HGB 13.1 01/25/2024 HCT 40.6 01/25/2024 RBC 4.39 01/25/2024 MCV 92.5 01/25/2024 MCHC 32.3 01/25/2024 RDWSD 44.4 01/25/2024 PLATELET 248 01/25/2024 LFT and Associated Parameters Lab Results Component Value Date AST 28 01/25/2024 ALT 18 01/25/2024 ALKPHOS 84 01/25/2024 BILITOT 0.4 01/25/2024 BILIDIR 0.1 07/01/2013 ALBUMIN 4.1 01/25/2024 Diabetes Laboratory Tests Lab Results Component Value Date MICROALBUR 3.6 01/25/2024 Impression / Plan of Care: Jerri Velasco is a delightful 89 year old woman with exertional dyspnea. Her CT scan shows fibrotic changes with an inflammatory process which progressed between 2019 but is progressing more slowly since then. PFTs show airflow obstruction with air trapping. Atthis point her symptoms are stable, she is able to perform all ADLs. She is planning on air travel and has borderline oxygen saturations at home occasionally so we will check to ensure she will not need in flight oxygen. I spent 30 minutes in the care of this patient including review of notes and tests, face to face encounter, and documentation. CARMELINA DONALDSON MD 05/26/2024 3:15 PM documented in this encounter Plan of Treatment Upcoming Encounters Date Type Department Care Team (Late st Contact Info) Description 01/18/2025 1:30 PM EDT Office [place] [address] Carmelina Donaldson MD [facility] [address] documented as of this encounter Visit Diagnoses Diagnosis Bronchiectasis without complication Bronchiectasis without acute exacerbation documented in this encounter Care Teams Home Specialist Relationship Specialty Start Date End Date Uyen Gerard MD [facility] [address] [place] [address] PCP - General 07/01/13 documented as of this encounter
--- OUTSIDE RECORDS SUMMARY | 2024-07-08 14:54 | XMS_ITS | Encounter Summary ---
Author Organization [facility] [place] [address] Care Team Providers Care Business Services Tech Name Role Phone Uyen Gerard MD Primary Care Provider [phone] Encounter Details Date Type Department Care Team [...] 1:30 PM EDT Office Visit [place] [address] Carmelina Donaldson MD [facility] [place] [address] documented as of this encounter Visit Diagnoses Not on filedocumented in this encounter Care Teams Business Services Tech Relationship Specialty Start Date End Date Uyen Gerard MD [facility] [address] [place] [address] PCP - General 07/01/13 documented as of this encounter
--- OUTSIDE RECORDS SUMMARY | 2024-07-08 14:54 | XMS_ITS | Encounter Summary ---
Author Organization [facility] [place] [address] Care Team Providers Care Machine Repair Person Name Role Phone Uyen Gerard MD Primary [...] 1:30 PM EDT [place] [address] Carmelina Donaldson MD [facility] [place] [address] documented as of this encounter Visit Diagnoses Not on filedocumented in this encounter Care Teams Machine Repair Person Relationship Specialty Start Date End Date Uyen Gerard MD [facility] [address] [place] [address] PCP - General 07/01/13 documented as of this encounter
--- OUTSIDE RECORDS SUMMARY | 2024-07-08 14:54 | XMS_ITS | Encounter Summary ---
Author Organization [facility] [place] [address] Care Team Providers Care Correctional Guard Name Role Phone Uyen Gerard MD Primary Care Provider [phone] Reason for Visit * Reason Comments New Med Request Encounter Details Date Type Department Care Team (Late st Contact Info) Description 09/25/2023 Refill [place]ph[place] [address] Manuel Ricks MD [facility] [place] [address] Essential hypertension Social History Tobacco Use Types [...] 1:30 PM EDT Office [place] [address] Carmelina Donaldson MD [facility] [place] [address] documented as of this encounter Visit Diagnoses Diagnosis Essential hypertension Unspecified essential hypertension documented in this encounter Care Teams Correctional Guard Relationship Specialty Start Date End Date Uyen Gerard MD [address] [facility] 1 [place] [address] PCP - General 07/01/13 documented as of this encounter
--- OUTSIDE RECORDS SUMMARY | 2024-07-08 14:54 | XMS_ITS | Encounter Summary ---
Author [facility] [place] [address] Care Team Providers Care Sales Program Manager Name Role Phone Uyen Gerard MD Primary Care Provider [phone] Reason for Referral * Diagnostic Test (Routine) - Closed Specialty Diagnoses / Procedures Referred By Conttaj callahan Referred To Contact Radiology Diagnoses Pulmonary nodule Procedures CT Chest wo Contrast (Generic) Carmelina Donaldson MD [facility] [place] [address] [facility] [place] [address] Referral ID Status Reason Start Date Expiration Date V isits Requested Visits Authorized [id number] Closed Specialty Service Requested 08/06/2022 02/04/2024 1 1 Encounter Details Date Type Department Care Team (Late st Contact Info) Description 08/06/2022 4:30 PM EST Office [place] [address] Carmelina Donaldson MD [facility] [place] [address] Pulmonary nodule; Bronchiectasis without complication [...] cloth Or Place in Top Rack of Vibrating Screed Operator weekly. Non-disposable nebulizer replace every 6 months [...] OR 2. Clean the vPEP in the curtain inspector. - Put in a basket and place on the top rack of the curtain inspector. - Wash on a normal cycle with curtain inspector detergent. - Shake off any water. - [...] OR - Clean the container in the curtain inspector on the full cycle (not a short [...] from the original note were not included. [facility] Section of Pulmonary and Critical Care Medicine [...] Office Visit from 03/31/2014 in Pulmonology at [facility] Office Visit from 09/16/2013 in Pulmonology at [facility] Office Visit from 03/11/2013 in Pulmonology at [facility] PFT Results Peak Flow 300 [...] see her back when they return to [place] in December with a repeat CT but [...] (PEP) Device to Jerri Velasco Provided Jerri [facility] VPEP [employer] Initial [...] cloth OR place in top rack of curtain inspector and wash. Non-disposable nebulizer replace every 6 months( provided new nondisposable nebulizer kit. Current kit is approximately 3 years old. Plan for order to [facility] for 2 non disposable nebulizer kits every [...] OR 2. Clean the vPEP in the curtain inspector. - Put in a basket and place on the top rack of the curtain inspector. - Wash on a normal cycle with curtain inspector detergent. - Shake off any water. - [...] OR - Clean the container in the curtain inspector on the full cycle (not a short wash). documented in this encounter Plan of Treatment Upcoming Encounters Date Type Department Care Team (Late st Contact Info) Description 01/18/2025 1:30 PM EDT Office [place] [address] Carmelina Donaldson MD [facility] [place] [address] documented as of this encounter Results * [...] who have questions please contact the health direct care supervisor that requested your imaging first. ? Narrative 01/07/2023 4:57 PM EDT EXAMINATION: CT [...] nodule documented in this encounter Care Teams Sales Program Manager Relationship Specialty Start Date End Date Uyen Gerard MD [facility] [address] [place] [address] PCP - General 07/01/13 documented as of this encounter
--- OUTSIDE RECORDS SUMMARY | 2024-07-08 14:54 | XMS_ITS | Encounter Summary ---
Author Organization [facility] [place] [address] Care Team Providers Care Internet Sourcer Name Role Phone Uyen Gerard MD Primary Care Provider [phone] Encounter Details Date Type Department Care Team [...] 1:30 PM EDT Office [place] [address] Carmelina Donaldson MD [facility] [place] [address] documented as of this encounter Visit Diagnoses Not on filedocumented in this encounter Care Teams Internet Sourcer Relationship Specialty Start Date End Date Uyen Gerard MD [facility] [address] [place] [address] PCP - General 07/01/13 documented as of this encounter
--- OUTSIDE RECORDS SUMMARY | 2024-07-08 14:54 | XMS_ITS | Encounter Summary ---
Author Organization [facility] [place] [address] Care Team Providers Care Brake Drum Molder Name Role Phone Uyen Gerard MD Primary Care Provider [phone] Reason for Visit * Reason Onset Date Comments Medication Refill 12/30/2023 Encounter Details Date Type Department Care Team (Late st Contact Info) Description 12/30/2023 Refill [place] [phone] Carmelina Donaldson MD [facility] [place] [address] Interstitial lung disease; Bronchiectasis without complication Social [...] 1:30 PM EDT Office Visit [place] [phone] Carmelina Donaldson MD [facility] [place] [address] documented as of this encounter Visit Diagnoses Diagnosis Interstitial lung disease Postinflammatory pulmonary fibrosis Bronchiectasis without complication Bronchiectasis without acute exacerbation documented in this encounter Care Teams Brake Drum Molder Relationship Specialty Start Date End Date Uyen Gerard MD [address] [place] [address] PCP - General 07/01/13 documented as of this encounter
--- OUTSIDE RECORDS SUMMARY | 2024-07-08 14:54 | XMS_ITS | Encounter Summary ---
Author Organization [facility] [place] [address] Care Team Providers Care Area Plant Manager Name Role Phone Uyen Gerard MD Primary Care Provider [phone] Encounter Details Date Type Department Care Team (Late st Contact Info) Description 01/27/2024 Orders Only [place] [phone] Carmelina Donaldson MD [facility] [place] [address] Interstitial lung disease Social History Tobacco Use [...] 1:30 PM EDT Office Visit [place] [address]-1000 Carmelina Donaldson MD [facility] [place] [address] documented as of this encounter Results * High Altitude Test [...] Diagnosis Interstitial lung disease Postinflammatory pulmonary fibrosis Interstitial lung disease Postinflammatory pulmonary fibrosis documented in this encounter Care Teams Area Plant Manager Relationship Specialty Start Date End Date Uyen Gerard MD [facility] [address] [place] [address] PCP - General 07/01/13 documented as of this encounter
--- OUTSIDE RECORDS SUMMARY | 2024-07-08 14:54 | XMS_ITS | Encounter Summary ---
Author Organization [facility] [place] [address] Care Team Providers Care Advertising Vice President Name Role Phone Uyen Gerard MD Primary Care Provider [phone] Reason for Visit * Reason Onset Date Comments Medication Refill 10/08/2022 Encounter Details Date Type Department Care Team (Late st Contact Info) Description 10/08/2022 Ref[place] [address]1000 Carmelina Donaldson MD [facility] [place] [address] Interstitial lung disease; Bronchiectasis without complication Social [...] 1:30 PM EDT Office [place] [phone] Carmelina oDnaldson MD [facility] [place] [address] documented as of this encounter Visit Diagnoses Diagnosis Interstitial lung disease Postinflammatory pulmonary fibrosis Bronchiectasis without complication Bronchiectasis without acute exacerbation documented in this encounter Care Teams Advertising Vice President Relationship Specialty Start Date End Date Uyen Gerard MD [address] [place] [address] PCP - General 07/01/13 documented as of this encounter
--- OUTSIDE RECORDS SUMMARY | 2024-07-08 14:54 | XMS_ITS | Encounter Summary ---
[facility] [place] [address] Care Team Providers Care Block Mechanic Name Role Phone Uyen Gerard MD Primary Care Provider [phone] Reason for Visit * Reason Onset Date Comments Other 08/07/2022 DME - Nebulizer Encounter Details Date Type Department Care Team (Late st Contact Info) Description 08/07/2022 [place] [address] Austin Woodruff RN Other (DME - Nebulizer) [...] Nebulizer order, signed by Dr. Donaldson, to [facility] office. Attached to this was the following items: Patient Demographics, Office Visit Notes dated 08/06/2022 Fax submission confirmation time stamped for 08/07/2022 @ 9487. 15 pages with cover sheet. documented in this encounter Plan of Treatment Upcoming Encounters Date Type Department Care Team (Late st Contact Info) Description 01/18/2025 1:30 PM EDT Office [place] [address] Carmelina Donaldson MD [facility] [place] [address] documented as of this encounter Visit Diagnoses Not on filedocumented in this encounter Care Teams Block Mechanic Relationship Specialty Start Date End Date Uyen Gerard MD [address] [facility] 1 [place] [address] PCP - General 07/01/13 documented as of this encounter
--- OUTSIDE RECORDS SUMMARY | 2024-07-08 14:54 | XMS_ITS | Encounter Summary ---
Author [facility] [place] [address] Care Team Providers Care Wet Process Miller Head Name Role Phone Uyen Gerard MD Primary Care Provider [phone] Encounter Details Date Type Department Care Team (Late st Contact Info) Description 05/29/2023 Telephone Pulmonology at [facility] [place] [address] Uyen [place] Social History Tobacco Use Types [...] - 05/29/2023 3:44 PM EDT Copied from [facility] #[id number]. Topic: Specialty Dept CRMs - Generic Call [...] 1:30 PM EDT Office [place] [address] Carmelina Donaldson MD [facility] [place] [address] documented as of this encounter Visit Diagnoses Not on filedocumented in this encounter Care Teams Wet Process Miller Head Relationship Specialty Start Date End Date Uyen Gerard MD [facility] [address] [place] [address] PCP - General 07/01/13 documented as of this encounter
--- OUTSIDE RECORDS SUMMARY | 2024-07-08 14:54 | XMS_ITS | Encounter Summary ---
Author Organization [facility] [place] [address] Care Team Providers Care Ham Marker Name Role Phone Uyen Gerard MD Primary Care Provider [phone] Encounter Details Date Type Department Care Team [...] 1:30 PM EDT Office [place] [address] Carmelina Donaldson MD [facility] [place] [address] documented as of this encounter Visit Diagnoses Not on filedocumented in this encounter Care Teams Ham Marker Relationship Specialty Start Date End Date Uyen Gerard MD [facility] [address] [place] [address] PCP - General 07/01/13 documented as of this encounter
--- OUTSIDE RECORDS SUMMARY | 2024-07-08 14:54 | XMS_ITS | Encounter Summary ---
Author Organization [facility] [place] [address] Care Team Providers Care Circus Rider Name Role Phone Uyen Gerard MD Primary Care Provider [phone] Encounter Details Date Type Department Care Team (Latest Contact Info) Description 03/02/2023 4:30 PM EDT Office Visit [place] [address] Manuel Ricks MD [facility] [place] [address] Stage 3a chronic kidney disease; Primary hypertension [...] 4:30 PM EDT Nephrology/Hypertension Clinic Follow-up Note [id number] ID: 88 y.o.year-old female for follow up [...] stage III (moderate) N18.30 Current use of manager long term care anticoagulation Z79.01 snf current use of antiarrhythmic medical therapy Z79.899 [...] had bad cold after a cruise to [place] in Oct treated with abx and prednisone [...] unremarkable. Await results. CC: Uyen Gerard MD [facility] [address] [place] [address] documented in this encounter Plan of Treatment Upcoming Encounters Date Type Department Care Team (Late st Contact Info) Description 01/18/2025 1:30 PM EDT [place] [address] Carmelina Donaldson MD [facility] [place] [address] documented as of this encounter Visit Diagnoses Diagnosis Stage 3a chronic kidney disease Primary hypertension Unspecified essential hypertension documented in this encounter Care Teams Circus Rider Relationship Specialty Start Date End Date Uyen Gerard MD [address] [place] [address] PCP - General 07/01/13 documented as of this encounter
--- OUTSIDE RECORDS SUMMARY | 2024-07-08 14:54 | XMS_ITS | Encounter Summary ---
[place] [address] Care Team Providers Care Drafter (Cad) Electronic Name Role Phone Uyen Gerard MD Primary Care Provider [phone] Reason for Referral * Diagnostic Test (Routine) - Closed Specialty Diagnoses / Procedures Referred By Contac t Referred To Contact Radiology Diagnoses Pulmonary nodule Procedures CT Chest wo Contrast (Generic) Carmelina Donaldson MD [facility] [place] [address] [facility] [place] [address] Referral ID Status Reason Start Date Expiration Date V isits Requested Visits Authorized [id number] Closed Specialty Service Requested 01/07/2023 07/10/2024 1 1 Reason for Visit * Diagnostic Test (Routine) - Closed Specialty Diagnoses / Procedures Referred By Conttaj callahan Referred To Contact Radiology Diagnoses Pulmonary nodule Procedures CT Chest wo Contrast (Generic) Carmelina Donaldson MD [facility] [place] [address] [facility] [place] [address] Referral ID Status Reason Start Date Expiration Date V isits Requested Visits Authorized [id number] Closed Specialty Service Requested 01/07/2023 07/10/2024 1 1 Encounter Details Date Type Department Care Team (Latest Contact Info) Description 07/08/2023 2:47 PM EDT - 07/08/2023 11:59 PM EDT Hospital Encounter CT Scan at [facility] [place] [address] Carmelina Donaldson MD [facility] [address] [place] [address] Pulmonary nodule Discharge Disposition: Home Social History [...] Dispensed Refills Start Date End Date fluticasone bpqrxls-vtkcqddeqwgd-z ilanteroL (Trelegy Ellipta) 100-62.5-25 mcg inhaler (DPI) Inhale 1 puff into the lungs daily. 02/20/2020 latanoprost (Xalatan) 0.005 % Drops [...] (COLACE ORAL) Take by mouth daily. 01/02/2009 spironolactone (Aldactone) 25 mg tabletIndications:Esse ntial [...] 1:30 PM EDT Office [place] [address] Carmelnia Donaldson MD [facility] [place] [address] documented as of this encounter Procedures Procedure [...] who have questions please contact the health career information specialist that requested your imaging first. ? Narrative [...] patients who have questions please contactthe health career information specialist that requested your imaging first. Carmelina Donaldson MD IMG CT ORDERABLES documented in this encounter Visit Diagnoses Diagnosis Pulmonary nodule Solitary pulmonary nodule documented in this encounter Care Teams Drafter (Cad) Electronic Relationship Specialty Start Date End Date Uyen Gerard MD [facility] [address] [place] [address] PCP - General 07/01/13 documented as of this encounter
--- OUTSIDE RECORDS SUMMARY | 2024-07-08 14:54 | XMS_ITS | Encounter Summary ---
Author Organization [facility] [place] [address] Care Team Providers Care Medical Assistant Secretary Name Role Phone Uyen Gerard MD Primary Care Provider [phone] Reason for Visit * Reason Onset Date Comments Medication Refill 09/11/2022 Encounter Details Date Type Department Care Team (Late st Contact Info) Description 09/11/2022 [place] [address] Carmelina Donaldson MD [facility] [place] [address] Interstitial lung disease; Bronchiectasis without complication Social [...] 1:30 PM EDT Office [place] [address] Carmelina Donaldson MD [facility] [place] [address] documented as of this encounter Visit Diagnoses Diagnosis Interstitial lung disease Postinflammatory pulmonary fibrosis Bronchiectasis without complication Bronchiectasis without acute exacerbation documented in this encounter Care Teams Medical Assistant Secretary Relationship Specialty Start Date End Date Uyen Gerard MD [address] [place] [address] PCP - General 07/01/13 documented as of this encounter
--- OUTSIDE RECORDS SUMMARY | 2024-07-08 14:54 | XMS_ITS | Encounter Summary ---
Author Organization [facility] [place] [address] Care Team Providers Care Globe Tester Name Role Phone Uyen Gerard MD Primary Care Provider Encounter Details Date Type Department Care Team (Late st Contact Info) Description 10/10/2022 Telephone [place] [address]1000 Uyen Mansfield Social History Tobacco Use Types [...] PM EDT Office Visit [place] [address]-1000 Carmelina Donaldson MD [facility] [place] [address] documented as of this encounter Visit Diagnoses Not on filedocumented in this encounter Care Teams Globe Tester Relationship Specialty Start Date End Date Uyen Gerard MD [facility] [address] [place] [address] PCP - General 07/01/13 documented as of this encounter
--- OUTSIDE RECORDS SUMMARY | 2024-07-08 14:54 | XMS_ITS | Encounter Summary ---
Author Organization [facility] [place] [address] Care Team Providers Care Ultimate Hoops Referee Name Role Phone Uyen Gerard MD Primary Care Provider [phone] Encounter Details Date Type Department Care Team [...] 1:30 PM EDT Office [place] [address] Carmelina Donaldson MD [facility] PULMONARY [place] [address] documented as of this encounter Visit Diagnoses Not on filedocumented in this encounter Care Teams Ultimate Hoops Referee Relationship Specialty Start Date End Date Uyen Gerard MD [facility] [address] [place] [address] PCP - General 07/01/13 documented as of this encounter
--- OUTSIDE RECORDS SUMMARY | 2024-07-08 14:54 | XMS_ITS | Encounter Summary ---
Author Organization [facility] [place] [address] Care Team Providers Care Hay Sorter Name Role Phone Uyen Gerard MD Primary Care Provider [phone] Encounter Details Date Type Department Care Team (Late st Contact Info) Description 07/08/2023 4:00 PM EDT Office [place] [address] Carmelina Donaldson MD [facility] [place] [address] Pneumonitis; Bronchiectasis without complication Social History Tobacco [...] from the original note were not included. [facility] Section of Pulmonary and Critical [...] Office Visit from 03/31/2014 in Pulmonology at [facility] Office Visit from 09/16/2013 in Pulmonology at [facility] Office Visit from 03/11/2013 in Pulmonology at [facility] PFT Results Peak Flow 300 L/min [...] 1:30 PM EDT Office [place] [address] Carmelina Donaldson MD [facility] [place] [address] documented as of this encounter Visit Diagnoses Diagnosis Pneumonitis Pneumonia, organism unspecified Bronchiectasis without complication Bronchiectasis without acute exacerbation documented in this encounter Care Teams Hay Sorter Relationship Specialty Start Date End Date Uyen Gerard MD [address] [place] [address] PCP - General 07/01/13 documented as of this encounter
--- OUTSIDE RECORDS SUMMARY | 2024-07-08 14:54 | XMS_ITS | Encounter Summary ---
Author Organization [facility] [place] [address] Care Team Providers Care Senior Catering Sales Manager Name Role Phone Uyen Gerard MD Primary Care Provider [phone] Encounter Details Date Type Department Care Team (Late st Contact Info) Description 09/09/2022 [place] [address] Carmelina Donaldson MD [facility] [place] [address] Interstitial lung disease; Bronchiectasis without complication Social [...] 09/09/2022 2:21 PM EST Copied from CRM #[id number]. Topic: Specialty Dept CRMs - Generic Call >> Sep 09, 2022 1:42 PM Melissa Callejas wrote: Specialist: Dr Donaldson Relationship (if other than patient-full name): none Reason for Call: pt called asking if the script levalbuteroL (Xopenex) 0.63 mg/3 mL Solution for Nebulization [[id number]] is the one that she should be taking or the 1.25 mg. The pt is requesting that whichever script is correct, please order it through [facility]. Please call her to discuss ELIAZAR documented in this encounter Plan of Treatment Upcoming Encounters Date Type Department Care Team (Late st Contact Info) Description 01/18/2025 1:30 PM EDT Office [place] [address] Carmelina Donaldson MD [facility] [place] [address] documented as of this encounter Visit Diagnoses Diagnosis Interstitial lung disease Postinflammatory pulmonary fibrosis Bronchiectasis without complication Bronchiectasis without acute exacerbation documented in this encounter Care Teams Senior Catering Sales Manager Relationship Specialty Start Date End Date Uyen Gerard MD [facility] [address] [place] [address] PCP - General 07/01/13 documented as of this encounter
--- OUTSIDE RECORDS SUMMARY | 2024-07-08 14:54 | XMS_ITS | Encounter Summary ---
Author Organization [facility] [place] [address] Care Team Providers Care It Infrastructure Engineer Name Role Phone Uyen Gerard MD Primary Care Provider [phone] Encounter Details Date Type Department Care Team [...] 1:30 PM EDT Office [place] [address] Carmelina Donaldson MD [facility] [address] documented as of this encounter Visit Diagnoses Not on filedocumented in this encounter Care Teams It Infrastructure Engineer Relationship Specialty Start Date End Date Uyen Gerard MD [facility] [address] [place] [address] PCP - General 07/01/13 documented as of this encounter
--- OUTSIDE RECORDS SUMMARY | 2024-07-08 14:54 | XMS_ITS | Encounter Summary ---
Author Organization [facility] [place] [address] Care Team Providers Care Electrical Hardware Engineer Name Role Phone Uyen Gerard MD Primary Care Provider [phone] Encounter Details Date Type Department Care Team (Late st Contact Info) Description 01/25/2024 [place] [address] Uyen Mansfield Social History Tobacco Use Types [...] 1:30 PM EDT [place] [address] Carmelina Donaldson MD [facility] [place] [address] documented as of this encounter Visit Diagnoses Not on filedocumented in this encounter Care Teams Electrical Hardware Engineer Relationship Specialty Start Date End Date Uyen Gerard MD [facility] [address] [place] [address] PCP - General 07/01/13 documented as of this encounter
--- OUTSIDE RECORDS SUMMARY | 2024-07-08 14:54 | XMS_ITS | Encounter Summary ---
Author Organization [facility] [place] [address] Care Team Providers Care Postal Superintendent Name Role Phone Uyen Gerard MD Primary Care Provider Encounter Details Date Type Department Care Team (Late st Contact Info) Description 05/01/2023 External Results [place] [address] Cata Hall, DOCUMENT MANAGEMENT SPECIALIST Social History Tobacco Use Types Packs/Day Years [...] EDT Office [place] [address] Carmelina Donaldson MD [facility] [place] [address] documented as of this encounter Procedures Procedure [...] Magnesium 1.9 mg/dL Blood 04/30/2023 Historical Provider MD CHEMISTRY ORDERAB LES documented in this encounter Visit Diagnoses Not on filedocumented in this encounter Care Teams Postal Superintendent Relationship Specialty Start Date End Date Uyen Gerard MD [address] [place] [address] PCP - General 07/01/13 documented as of this encounter
--- OUTSIDE RECORDS SUMMARY | 2024-07-08 14:54 | XMS_ITS | Encounter Summary ---
Author Organization [facility] [place] [address] Care Team Providers Care Algorithm Design Engineer Name Role Phone Uyen Gerard MD Primary Care Provider [phone] Encounter Details Date Type Department Care Team [...] 1:30 PM EDT Office [place] [address] [facility] [place] [address] documented as of this encounter Visit Diagnoses Not on filedocumented in this encounter Care Teams Algorithm Design Engineer Relationship Specialty Start Date End Date Uyen Gerard MD [facility] [address] [place] [address] PCP - General 07/01/13 documented as of this encounter
--- OUTSIDE RECORDS SUMMARY | 2024-07-08 14:54 | XMS_ITS | Encounter Summary ---
[place] [address] Care Team Providers Care Lymphedema Therapist Name Role Phone Uyen Gerard MD Primary Care Provider [phone] Reason for Referral * Diagnostic Test (Routine) - Closed Specialty Diagnoses / Procedures Referred By Contac t Referred To Contact Radiology Diagnoses Pulmonary nodule Procedures CT Chest wo Contrast (Generic) Carmelina Donaldson MD [facility] [place] [address] [facility] [place] [address] Referral ID Status Reason Start Date Expiration Date V isits Requested Visits Authorized [id number] Closed Specialty Service Requested 08/06/2022 02/04/2024 1 1 Reason for Visit * Diagnostic Test (Routine) - Closed Specialty Diagnoses / Procedures Referred By Conttaj callahan Referred To Contact Radiology Diagnoses Pulmonary nodule Procedures CT Chest wo Contrast (Generic) Carmelina Donaldson MD [facility] [place] [address] [facility] [place] [address] Referral ID Status Reason Start Date Expiration Date V isits Requested Visits Authorized [id number] Closed Specialty Service Requested 08/06/2022 02/04/2024 1 1 Encounter Details Date Type Department Care Team (Latest Contact Info) Description 01/07/2023 11:46 AM EDT - 01/07/2023 11:59 PM EDT Hospital Encounter CT Scan at [facility] [place] [address] Carmelina Donaldson MD [facility] [place] [address] Pulmonary nodule Discharge Disposition: Home Social History [...] Dispensed Refills Start Date End Date fluticasone ywueqsb-uakeoolkcfen-r ilanteroL (Trelegy Ellipta) 100-62.5-25 mcg inhaler (DPI) [...] (COLACE ORAL) Take by mouth daily. 01/02/2009 levalbuteroL (Xopenex) 0.63 mg/3 mL Solution [...] 1:30 PM EDT Office [place] [address] Carmelina Donaldson MD [facility] [place] [address] documented as of this encounter Procedures Procedure [...] who have questions please contact the health small animal caretaker that requested your imaging first. ? Electronically signed by: Marianne Foster MD, [facility] ([phone]), at 01/07/2023 4:57 PM Narrative 01/07/2023 4:57 [...] nodule documented in this encounter Care Teams Lymphedema Therapist Relationship Specialty Start Date End Date Uyen Gerard MD [facility] [address] [place] [address] PCP - General 07/01/13 documented as of this encounter
--- OUTSIDE RECORDS SUMMARY | 2024-07-08 14:54 | XMS_ITS | Encounter Summary ---
Author Organization [facility] [place] [address] Care Team Providers Care Spindle Plumber Name Role Phone Uyen Gerard MD Primary Care Provider [phone] Encounter Details Date Type Department Care Team (Latest Contact Info) Description 01/25/2024 3:00 PM EDT Office Visit [place] [address] Manuel Ricks MD [facility] [place] [address] Stage 3 chronic kidney disease, unspecified whether [...] 3:00 PM EDT Nephrology/Hypertension Clinic Follow-up Note [id number] ID: 89 y.o.year-old female for follow up [...] stage III (moderate) N18.30 Current use of assisted anticoagulation Z79.01 terminal 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 fluticasone bgjtdsu-iiidhnrriyir-yzugsvncdD (Trelegy Ellipta) 100-62.5-25 mcg inhaler (DPI) daily. [...] here with daughter who is visiting from [place] Overall doing well. Had one bout of low O2 sat that came and went with nebulizer (thinks she might have reacted to a cat). Ankles swell a bit. Nothing too dramatic. Went to [place] and ate out a lot that she [...] Yellow Yellow Appearance UA Clear Clear Spec [place] UA 1.005 - 1.030 1.015 pH UA [...] Uyen Gerard MD [address] [place] [address] * Manuel Ricks MD - 01/25/2024 3:00 [...] 1:30 PM EDT Office [place] [address] Carmelina Donaldson MD [facility] [place] [address] documented as of this encounter Procedures Procedure [...] RBC, Urine 1 0 - 4 /HPF [facility] WBC, Urine 6(H) 0 - 5 /HPF [facility] Squamous Epithelial Cells Raw Data, Urine 10(H) <=4 /HPF [facility] Hyaline Casts, Urine 1 0 - 2 /LPF [facility] Urine NS 01/25/2024 4:00 PM EDT 01/25/2024 5:08 PM EDT Narrative Resulting Agency Comment Spec In Lab Manuel Ricks MD URINE ORDERABLES [facility] [place] [address] * (ABNORMAL) Urinalysis with reflex Culture (01/25/2024 4:00 PM EDT) Glucose, Urine Dipstick Negative Negative mg/dL [facility] Protein, Urine Dipstick Negative Negative mg/dL [facility] Bilirubin, Urine Dipstick Negative Negative mg/dL [facility] Comment: Clinical correlation required for positive Urine Bilirubin results as false positive may occur with some drugs and drug related products. If a false positive is suspected a serum total bilirubin should be considered if clinically indicated. Urobilinogen, Urine Dipstick Normal Normal mg/dL [facility] pH, Urn (dipstick) 6.0 5.0 - 8.0 [facility] Blood, Urine Dipstick Negative Negative mg/dL [facility] Ketone, Urine Dipstick Negative Negative mg/dL [facility] Nitrite, Urine Dipstick Negative Negative [facility] Leukocytes, Urine Dipstick Small(A) Negative [facility] Appearance, Urine Dipstick Clear Clear [facility] Specific [place] Urine Automated 1.015 1.005 - 1.030 [facility] Color, Urine Dipstick Yellow Yellow [facility] Reflex to Culture No [facility] Urine NS 01/25/2024 4:00 PM EDT 01/25/2024 5:05 PM EDT Narrative Resulting Agency Comment Spec In Lab Manuel Ricks MD URINE ORDERABLES Performing Organization Address City/State/[facility] Co de Phone Number [facility] [place] [address] * U Albumin/Cre Ratio (01/25/2024 4:00 PM EDT) Albumin / Creatinin Ratio, Urine 4 0 - 29 mcg/mg Cr [facility] Comment: Reference Ranges: <30 mcg/mg: [...] 2, 357? 362 Albumin, Urine 3.6 mg/L [facility] Creatinine, Urine 94 mg/dL [facility] Urine 01/25/2024 4:00 PM EDT 01/25/2024 5:06 PM EDT Narrative Resulting Agency Comment Spec In Lab Manuel Ricks MD URINE ORDERABLES [facility] [place] [address] * Differential, Automated (01/25/2024 3:56 PM EDT) Neutrophil % 65.8 % [facility] Neutrophil Absolute 5.15 1.70 - 6.10 x10(3)/[facility] Lymph % 19.9 % [facility] Lymphocytes Abs 1.6 0.9 - 3.2 x10(3)/[facility] Monocyte % 10.8 % [facility] Monocyte Abs 0.8 0.3 - 0.9 x10(3)/[facility] Eos % 2.0 % [facility] Eosinophils Abs 0.2 0.0 - 0.4 x10(3)/[facility] Basophil % 1.0 % [facility] Baso Absolute 0.1 0.0 - 0.1 x10(3)/[facility] Immature Gran % 0.50 % [facility] Comment: Immature granulocytes(IG's)percentage and absolute count will include metamyelocytes, myelocytes, and promyelocytes. Blood smears from CBCs yielding IG's will be scanned manually for concordance. If this scan disagrees with the automated IG or if promyelocytes are noted, a manual differential will be performed. Immature Gran Absolute 0.04 0.00 - 0.04 x10(3)/[facility] Blood 01/25/2024 3:56 PM EDT 01/25/2024 4:03 PM EDT Narrative Resulting Agency Comment Spec In Lab Manuel A Millicent [facility] HEMATOLOGY ORDERABLE S [facility] [place] [address] * Hemogram (01/25/2024 3:56 PM EDT) White Blood Cell 7.8 4.0 - 9.5 x10(3)/[facility] Red Blood Cell 4.39 4.00 - 5.21 x10(6)/[facility] Hemoglobin 13.1 11.7 - 15.5 g/dL [facility] Hematocrit 40.6 35.7 - 45.8 % [facility] Mean Cell Volume 92.5 82.6 - 94.4 fL [facility] Mean Cell Hemoglobin 29.8 27.1 - 32.0 pg [facility] Mean Cell Hemoglobin Concentration 32.3 31.7 - 35.0 g/dL [facility] Platelet 248 145 - 357 x10(3)/[facility] RDW Standard Deviation 44.4 37.0 - 46.0 [facility] RDW coefficient of variation 13.1 11.5 - 14.1 % [facility] Mean Platelet Volume 9.2 7.6 - 12.9 [facility] NRBC% auto 0.0 % [facility] NRBC Absolute 0.000 0.000 - 0.000 x10(3)/[facility] Blood 01/25/2024 3:56 PM EDT 01/25/2024 4:03 PM EDT Narrative Resulting Agency Comment Spec In Lab Manuel Ricks MD HEMATOLOGY ORDERABLE S Performing Organization Address [facility] Co de Phone Number [facility] [address] * Phosphorus (01/25/2024 3:56 PM EDT) Phosphorus 3.8 2.5 - 4.5 mg/dL [facility] Blood 01/25/2024 3:56 PM EDT 01/25/2024 4:03 PM EDT Narrative Resulting Agency Comment Spec In Lab Manuel Ricks MD CHEMISTRY ORDERABLES Performing Organization Address [facility] Co de Phone Number [facility] [place] [address] * PTH (01/25/2024 3:56 PM EDT) Parathyroid Hormone 47 15 - 65 pg/mL [facility] Blood 01/25/2024 3:56 PM EDT 01/25/2024 4:03 PM EDT Narrative Resulting Agency Comment Spec In Lab Manuel Ricks MD CHEMISTRY ORDERABLES Performing Organization Address [facility] Co de Phone Number [facility] [place] [address] * (ABNORMAL) Comprehensive metabolic panel (non-fasting) (01/25/2024 3:56 PM EDT) Glucose 84 65 - 199 mg/dL [facility] Comment:Diabetes: >=200 mg/d L plus symptoms Blood Urea Nitrogen 28(H) 8 - 18 mg/dL [facility] Creatinine 1.28(H) 0.70 - 1.20 mg/dL [facility] Sodium 132(L) 135 - 145 mmol/L [facility] Potassium 4.5 3.5 - 5.0 mmol/L [facility] Comment: Please note: ??Patients with WBC >100,000 may have falsely elevated Potassium levels. ??For accurate Potassium quantification in these patients send serum separator tube (gold top) for subsequent determinations. ??Contact the Clinical Chemistry Laboratory if there are any questions. Chloride 98 98 - 107 mmol/L [facility] Carbon Dioxide 27 22 - 31 mmol/L [facility] Anion Gap 7 5 - 15 mmol/L [facility] Calcium 9.4 8.5 - 10.5 mg/dL [facility] Protein, Total 7.6 6.1 - 8.0 g/dL [facility] Albumin 4.1 3.2 - 5.2 g/dL [facility] Aspartate Aminotransferase 28 0 - 30 unit/L [facility] Alanine Aminotransferase 18 0 - 30 unit/L [facility] Alkaline Phosphatase 84 35 - 105 unit/L [facility] Bilirubin, Total 0.4 0.2 - 1.3 mg/dL [facility] Est Glomerular Filtration Rate 41(L) >=60 mL/min/1. 73 m?? [facility] Comment: This patient's estimated GFR [...] In Lab Manuel Ricks MD CHEMISTRY ORDERABLES [facility] [place] [address] * Magnesium (01/25/2024 3:56 PM EDT) Magnesium 0.92 0.69 - 1.07 mmol/L [facility] Blood 01/25/2024 3:56 PM EDT 01/25/2024 4:03 PM EDT Narrative Resulting Agency Comment Spec In Lab Manuel A Millicent CAMARA CHEMISTRY ORDERABLES [facility] [place] [address] documented in this encounter Visit Diagnoses Diagnosis Stage 3 chronic kidney disease, unspecified whether stage 3a or 3b CKD Hypertension, unspecified type Hyponatremia Hyposmolality and/or hyponatremia documented in this encounter Care Teams Spindle Plumber Relationship Specialty Start Date End Date Uyen Gerard MD [address] [place] [address] PCP - General 07/01/13 documented as of this encounter
--- OUTSIDE RECORDS SUMMARY | 2024-07-08 14:54 | XMS_ITS | Encounter Summary ---
Author Organization [facility] [place] [address] Care Team Providers Care Mine Superintendent Name Role Phone Uyen Gerard MD Primary Care Provider [phone] Encounter Details Date Type Department Care Team [...] 1:30 PM EDT [place] [address] Carmelina Donaldson MD [facility] [place] [address] documented as of this encounter Visit Diagnoses Not on filedocumented in this encounter Care Teams Mine Superintendent Relationship Specialty Start Date End Date Uyen Gerard MD [facility] [address] [place] [address] PCP - General 07/01/13 documented as of this encounter
--- OUTSIDE RECORDS SUMMARY | 2024-07-08 14:54 | XMS_ITS | Encounter Summary ---
Author Organization [facility] [place] [address] Care Team Providers Care Market Gardener Name Role Phone Uyen Gerard MD Primary Care Provider [phone] Encounter Details Date Type Department Care Team (Latest Contact Info) Description 01/20/2024 4:00 PM EDT Office [place] [address] Carmelina Donaldson MD [facility] [place] [address] Bronchiectasis without complication Social History Tobacco Use [...] from the original note were not included. [facility] Section of Pulmonary and Critical [...] Visit from 03/31/2014 in Pulmonology at [facility] Office Visit from 09/16/2013 in Pulmonology at [facility] Office Visit from 03/11/2013 in Pulmonology at [facility] PFT Results Peak Flow 300 [...] an inflammatory process which progressed between 2019 [id number] but is progressing more slowly since then. [...] 1:30 PM EDT Office [place] [address] Carmelina Donaldson MD [facility] [place] [address] documented as of this encounter Results * [...] exacerbation documented in this encounter Care Teams Market Gardener Relationship Specialty Start Date End Date Uyen Gerard MD [address] [place] [address] [address] [place] [address] PCP - General 07/01/13 documented as of this encounter
--- OUTSIDE RECORDS SUMMARY | 2024-07-08 14:54 | XMS_ITS | Encounter Summary ---
Author Organization [facility] Rach[address] [place] [address] Care Team Providers Care Equine Vet Name Role Phone Uyen Gerard MD Primary Care Provider [phone] Encounter Details Date Type Department Care Team [...] 1:30 PM EDT Office [place] [address] Carmelina Donaldson MD [facility] [place] [address] documented as of this encounter Visit Diagnoses Not on filedocumented in this encounter Care Teams Equine Vet Relationship Specialty Start Date End Date Uyen Gerard MD [facility] [address] [place] [address] PCP - General 07/01/13 documented as of this encounter
--- OUTSIDE RECORDS SUMMARY | 2024-07-08 14:54 | XMS_ITS | Encounter Summary ---
Author Organization [facility] [place] [address] Care Team Providers Care Director Child Abuse Therapy Name Role Phone Uyen Gerard MD Primary Care Provider [phone] Encounter Details Date Type Department Care Team [...] 1:30 PM EDT Office [place] [address] Carmelina Donaldson MD [facility] [place] [address] documented as of this encounter Visit Diagnoses Not on filedocumented in this encounter Care Teams Director Child Abuse Therapy Relationship Specialty Start Date End Date Uyen Gerard MD [facility] [address] [place] [address] PCP - General 07/01/13 documented as of this encounter
--- OUTSIDE RECORDS SUMMARY | 2024-07-08 14:54 | XMS_ITS | Encounter Summary ---
Author Organization [facility] [place] [address] Care Team Providers Care Yield Loss Inspector Name Role Phone Uyen Gerard MD Primary Care Provider Encounter Details Date Type Department Care Team (Latest Contact Info) Description 05/24/2024 Travel Social History Tobacco Use Types Packs/Day [...] 1:30 PM EDT Office [place] [address] Carmelina Donaldson MD [facility] [place] [address] documented as of this encounter Visit Diagnoses Not on filedocumented in this encounter Care Teams Yield Loss Inspector Relationship Specialty Start Date End Date Uyen Gerard MD [facility] [address] [place] [address] PCP - General 07/01/13 documented as of this encounter
--- OUTSIDE RECORDS SUMMARY | 2024-07-08 14:54 | XMS_ITS | Encounter Summary ---
Author Organization [facility] [place] [address] Care Team Providers Care Laborer Tin [place] Name Role Phone Uyen Gerard MD Primary Care Provider [phone] Encounter Details Date Type Department Care Team [...] 1:30 PM EDT Office [place] [address] Carmelina Donaldson MD [facility] [place] [address] documented as of this encounter Visit Diagnoses Not on filedocumented in this encounter Care Teams Laborer Tin Can Relationship Specialty Start Date End Date Uyen Gerard MD [facility] [address] [place] [id number] PCP - General 07/01/13 documented as of this encounter
--- OUTSIDE RECORDS SUMMARY | 2024-07-08 14:54 | XMS_ITS | Encounter Summary ---
Author Organization [facility] [place] [address] Care Team Providers Care Loader Malt House Name Role Phone Uyen Gerard MD Primary Care Provider [phone] Encounter Details Date Type Department Care Team (Late st Contact Info) Description 04/13/2023 Orders Only [place] [address] Manuel Ricks MD [facility] [place] [address] Essential hypertension; Stage 3a chronic kidney disease [...] 1:30 PM EDT Office [place] [address] Carmelina Donaldson MD [facility] [place] [address] documented as of this encounter Visit Diagnoses Diagnosis Essential hypertension Unspecified essential hypertension Stage 3a chronic kidney disease documented in this encounter Care Teams Loader Malt House Relationship Specialty Start Date End Date Uyen Gerard MD [address] [place] [address] PCP - General 07/01/13 documented as of this encounter
--- OUTSIDE RECORDS SUMMARY | 2024-07-08 14:54 | XMS_ITS | Encounter Summary ---
Author Organization [facility] [place] [address] Care Team Providers Care Keyseating Machine Set Up Operator Name Role Phone Uyen Gerard MD Primary Care Provider [phone] Encounter Details Date Type Department Care Team (Late st Contact Info) Description 03/08/2024 External Results Neph[place] [address] Social History Tobacco Use Types Packs/Day Years [...] 1:30 PM EDT Office [place] [address] Carmelina Donaldson MD [facility] [place] [address] documented as of this encounter Procedures Procedure [...] on filedocumented in this encounter Care Teams Keyseating Machine Set Up Operator Relationship Specialty Start Date End Date Uyen Gerard MD [facility] [address] [place] [address] PCP - General 07/01/13 documented as of this encounter
--- OUTSIDE RECORDS SUMMARY | 2024-07-08 14:54 | XMS_ITS | Encounter Summary ---
Author Organization [facility] [place] [address] Care Team Providers Care Solar Fabrication Technician Name Role Phone Uyen Gerard MD Primary Care Provider [phone] Encounter Details Date Type Department Care Team (Latest Contact Info) Description 03/02/2023 3:00 PM EDT Laboratory Appointment Lab [address] [place] [phone] Stage 3a chronic kidney disease; Hyponatremia Social [...] 1:30 PM EDT [place] [phone] Carmelina Donaldson MD [facility] [place] [address] documented as of this encounter Procedures Procedure [...] 3:02 PM EDT) Neutrophil % 62.9 % [facility] Neutrophil Absolute 6.02 1.70 - 6.10 x10(3)/mc L [facility] Lymph % 21.6 % [facility] Lymphocytes Abs 2.1 0.9 - 3.2 x10(3)/mc L [facility] Monocyte % 12.1 % [facility] Monocyte Abs 1.2(H) 0.3 - 0.9 x10(3)/mc L [facility] Eos % 1.8 % [facility] Eosinophils Abs 0.2 0.0 - 0.4 x10(3)/mc L [facility] Basophil % 0.9 % [facility] Baso Absolute 0.1 0.0 - 0.1 x10(3)/mc L [facility] Immature Gran % 0.70 % [facility] Comment: Immature granulocytes(IG's)percentage and absolute count will include metamyelocytes, myelocytes, and promyelocytes. Blood smears from CBCs yielding IG's will be scanned manually for concordance. If this scan disagrees with the automated IG or if promyelocytes are noted, a manual differential will be performed. Immature Gran Absolute 0.07(H) 0.00 - 0.04 x10(3)/ L [facility] Blood 03/02/2023 3:02 PM EDT 03/02/2023 3:11 PM EDT Narrative Resulting Agency Comment Spec In Lab Manuel A Block MD HEMATOLOGY ORDERABLE S [facility] [place] [place] [address] * (ABNORMAL) Hemogram (03/02/2023 3:02 PM EDT) White Blood Cell 9.6(H) 4.0 - 9.5 x10(3)/mc L [facility] Red Blood Cell 4.47 4.00 - 5.21 x10(6)/ L [facility] Hemoglobin 13.4 11.7 - 15.5 g/dL [facility] Hematocrit 41.0 35.7 - 45.8 % [facility] Mean Cell Volume 91.7 82.6 - 94.4 fL [facility] Mean Cell Hemoglobin 30.0 27.1 - 32.0 pg [facility] Mean Cell Hemoglobin Concentration 32.7 31.7 - 35.0 g/dL [facility] Platelet 269 145 - 357 x10(3)/mc L [facility] RDW Standard Deviation 43.4 37.0 - 46.0 fL [facility] RDW coefficient of variation 12.9 11.5 - 14.1 % [facility] Mean Platelet Volume 9.2 7.6 - 12.9 fL [facility] NRBC% auto 0.0 % [facility] NRBC Absolute 0.000 0.000 - 0.000 x10(3)/mc L [facility] Blood 03/02/2023 3:02 PM EDT 03/02/2023 3:11 PM EDT Narrative Resulting Agency Comment Spec In Lab Manuel Ricks MD HEMATOLOGY ORDERABLE S Performing Organization Address [facility] [address] [facility] Co de Phone Number [facility] [place] [place] [address] * (ABNORMAL) Free Light Chains, Serum (03/02/2023 3:02 PM EDT) [place] Free Light Chain 3.61(H) 0.72 - 2.75 mg/dL [facility] Lambda Free Light Chain 3.04(H) 0.57 - 2.15 mg/dL [facility] [place]/Lambda FLC Ratio 1.1875 0.4000 - 2.5800 [facility] Blood 03/02/2023 3:02 PM EDT 03/02/2023 3:11 PM EDT Narrative Resulting Agency Comment Spec In Lab Manuel Ricks MD CHEMISTRY ORDERABLES Performing Organization Address [facility] [address]/[facility] de Phone Number [facility] [place] [address] * (ABNORMAL) Protein Electrophoresis, serum (03/02/2023 3:02 PM EDT) Total Prot Electrophoresis 7.8 6.1 - 8.0 g/dL [facility] Albumin Electrophoresis 4.41 3.20 - 5.20 g/dL [facility] Alpha 1 Globulin 0.20 0.10 - 0.30 g/dL [facility] Alpha 2 Globulin 0.89 0.40 - 0.90 g/dL [facility] Beta Globulin 0.76 0.50 - 1.00 g/dL [facility] Gamma Globulin 1.54(H) 0.50 - 1.30 g/dL [facility] M1 Band None Detected None Detected [facility] Blood 03/02/2023 3:02 PM EDT 03/02/2023 3:11 PM EDT Narrative Resulting Agency Comment Spec In Lab Manuel Shari Ricks MD CHEMISTRY ORDERABLES Performing Organization Address [facility] de Phone Number [facility] [place] [address] * Osmolality (03/02/2023 3:02 PM EDT) Osmolality 288 275 - 295 mOsm/kg [facility] Blood 03/02/2023 3:02 PM EDT 03/02/2023 3:11 PM EDT Narrative Resulting Agency Comment Spec In Lab Manuel Mccarthy Millicent [place] CHEMISTRY ORDERABLES Performing Organization Address [facility] Phone Number [facility] [place] [address] * Magnesium (03/02/2023 3:02 PM EDT) Magnesium 0.89 0.69 - 1.07 mmol/L [facility] Blood 03/02/2023 3:02 PM EDT 03/02/2023 3:11 PM EDT Narrative Resulting Agency Comment Spec In Lab Manuel Mccarthy Millicent [place] CHEMISTRY ORDERABLES Performing Organization Address [facility] Phone Number [facility] [place] [address] * (ABNORMAL) Comprehensive metabolic panel (non-fasting) (03/02/2023 3:02 PM EDT) Glucose 90 65 - 199 mg/dL [facility] Comment:Diabetes: >=200 mg/d L plus symptoms Blood Urea Nitrogen 30(H) 8 - 18 mg/dL [facility] Creatinine 1.17 0.70 - 1.20 mg/dL [facility] Sodium 134(L) 135 - 145 mmol/L [facility] Potassium 4.6 3.5 - 5.0 mmol/L [facility] Comment: Please note: ??Patients with WBC >100,000 may have falsely elevated Potassium levels. ??For accurate Potassium quantification in these patients send serum separator tube (gold top) for subsequent determinations. ??Contact the Clinical Chemistry Laboratory if there are any questions. Chloride 96(L) 98 - 107 mmol/L [facility] Carbon Dioxide 27 22 - 31 mmol/L [facility] Anion Gap 11 5 - 15 mmol/L [facility] Calcium 9.7 8.5 - 10.5 mg/dL [facility] Protein, Total 8.3(H) 6.1 - 8.0 g/dL [facility] Albumin 4.2 3.2 - 5.2 g/dL [facility] Aspartate Aminotransferase 24 0 - 30 unit/L [facility] Alanine Aminotransferase 14 0 - 30 unit/L [facility] Alkaline Phosphatase 89 35 - 105 unit/L [facility] Bilirubin, Total 0.4 0.2 - 1.3 mg/dL [facility] Est Glomerular Filtration Rate 45(L) >=60 mL/min/1. 73 m?? [facility] Comment: This patient's estimated GFR [...] In Lab Manuel Ricks MD CHEMISTRY ORDERABLES [facility] [place] [address] * PTH (03/02/2023 3:02 PM EDT) Parathyroid Hormone 48 15 - 65 pg/mL [facility] Blood 03/02/2023 3:02 PM EDT 03/02/2023 3:11 PM EDT Narrative Resulting Agency Comment Spec In Lab Manuel Ricks MD CHEMISTRY ORDERABLES Performing Organization Address [facility] de Phone Number [facility] [place] [address] * Phosphorus (03/02/2023 3:02 PM EDT) Phosphorus 3.9 2.5 - 4.5 mg/dL [facility] Blood 03/02/2023 3:02 PM EDT 03/02/2023 3:11 PM EDT Narrative Resulting Agency Comment Spec In Lab Manuel Ricks MD CHEMISTRY ORDERABLES Performing Organization Address [facility] de Phone Number [facility] [place] [address] * Sodium, urine, random (03/02/2023 3:00 PM EDT) Sodium, Urine 50 mmol/L [facility] Urine 03/02/2023 3:00 PM EDT 03/02/2023 3:13 PM EDT Narrative Resulting Agency Comment Spec In Lab Manuel Ricks MD URINE ORDERABLES Performing Organization Address [facility] Phone Number [facility] [place] [address] * Protein Electrophoresis, urine, random (03/02/2023 3:00 PM EDT) Protein, Urine 8 0 - 12 mg/dL [facility] U Albumin 38 % total [facility] Globulin, Urine 62 % total [facility] M1 Band, Urine None Detected [facility] UPEP Comments See Note [facility] Comment: There is no evidence of clonal free light chains in this patient's urine sample. Urine 03/02/2023 3:00 PM EDT 03/02/2023 3:13 PM EDT Narrative Resulting Agency Comment Spec In Lab Manuel Shari Ricks MD URINE ORDERABLES [facility] [place] [address] documented in this encounter Visit Diagnoses Diagnosis Stage 3a chronic kidney disease Hyponatremia Hyposmolality and/or hyponatremia documented in this encounter Care Teams Solar Fabrication Technician Relationship Specialty Start Date End Date Uyen Gerard MD [address] [place] [address] PCP - General 07/01/13 documented as of this encounter
--- OUTSIDE RECORDS SUMMARY | 2024-07-08 14:54 | XMS_ITS | Encounter Summary ---
Author Organization [facility]ly [facility] [place] [address] Care Team Providers Care Cement Truck Driver Name Role Phone Uyen Gerard MD Primary Care Provider [phone] Encounter Details Date Type Department Care Team (Late st Contact Info) Description 09/15/2022 Refill Pulmonology at [facility] [place] [phone] Marisol Mas RN Interstitial lung disease; Bronchiectasis [...] - 09/15/2022 9:48 AM EST Copied from [facility] #[id number]. Topic: Specialty Dept CRMs - Generic Call >> Sep 15, 2022 9:28 AM Melissa Callejas wrote: Specialist: Dr Donaldson Relationship (if other than patient-full name): none Reason for Call: Pt states that the script that was called into sifonr is not available nordoes she want to [...] MATHEW Breaux, RN Department of Pulmonary 5C, [facility] Pager: [phone] documented in this encounter Plan of Treatment Upcoming Encounters Date Type Department Care Team (Late st Contact Info) Description 01/18/2025 1:30 PM EDT Office [place] [address] Carmelina Donaldson MD [facility] [place] [address] documented as of this encounter Visit Diagnoses Diagnosis Interstitial lung disease Postinflammatory pulmonary fibrosis Bronchiectasis without complication Bronchiectasis without acute exacerbation documented in this encounter Care Teams Cement Truck Driver Relationship Specialty Start Date End Date Uyen Gerard MD [address] [place] [address] PCP - General 07/01/13 documented as of this encounter
--- OUTSIDE RECORDS SUMMARY | 2024-07-08 14:54 | XMS_ITS | Encounter Summary ---
Author Organization Formerly [facility] [place] [address] Care Team Providers Care Power Shovel Engineer Name Role Phone Uyen Gerard MD Primary Care Provider [phone] Reason for Visit * Reason Comments Medication Refill Encounter Details Date Type Department Care Team (Late st Contact Info) Description 03/11/2023 Refill [place] [phone] Manuel Ricks MD [facility] [place] [address] Essential hypertension Social History Tobacco Use Types [...] 1:30 PM EDT Office [place] [phone] Carmelina Donaldson MD [facility] [place] [address] documented as of this encounter Visit Diagnoses Diagnosis Essential hypertension Unspecified essential hypertension documented in this encounter Care Teams Power Shovel Engineer Relationship Specialty Start Date End Date Uyen Gerard MD [address] [facility] 1 [place] [address] PCP - General 07/01/13 documented as of this encounter
--- OUTSIDE RECORDS SUMMARY | 2024-07-08 14:54 | XMS_ITS | Encounter Summary ---
Author Organization [facility] [place] [address] Care Team Providers Care Service Center Assistant Name Role Phone Uyen Gerard MD Primary Care Provider [phone] Encounter Details Date Type Department Care Team (Late st Contact Info) Description 10/13/2022 Telephone [place] [phone] Uyen [place] Social History Tobacco Use Types [...] 1:30 PM EDT Office [place] [phone] Carmelina Donaldson MD [facility] [place] [address] documented as of this encounter Visit Diagnoses Not on filedocumented in this encounter Care Teams Service Center Assistant Relationship Specialty Start Date End Date Uyen Gerard MD [facility] [address] [place] [address] PCP - General 07/01/13 documented as of this encounter
--- OUTSIDE RECORDS SUMMARY | 2024-07-08 14:54 | XMS_ITS | Encounter Summary ---
Author Organization [facility] [place] [address] Care Team Providers Care Mold Yard Crane Operator Name Role Phone Uyen Gerard MD Primary Care Provider [phone] Encounter Details Date Type Department Care Team (Late st Contact Info) Description 01/24/2024 Orders Only [place] [address] Manuel Ricks MD [facility] [place] [address] Stage 3a chronic kidney disease Social History [...] 1:30 PM EDT Office [place] [address] Carmelina Donaldson MD [facility] [place] [address] documented as of this encounter Results * U Albumin/Cre Ratio (01/25/2024 4:00 PM EDT) Albumin / Creatinin Ratio, Urine 4 0 - 29 mcg/mg Cr [facility] Comment: Reference Ranges: <30 mcg/mg: [...] 2, 357? 362 Albumin, Urine 3.6 mg/L [facility] Creatinine, Urine 94 mg/dL [facility] Urine 01/25/2024 4:00 PM EDT 01/25/2024 5:06 PM EDT Narrative Resulting Agency Comment Spec In Lab Manuel Ricks MD URINE ORDERABLES [facility] [place] [address] * (ABNORMAL) Urinalysis with reflex Culture (01/25/2024 4:00 PM EDT) Glucose, Urine Dipstick Negative Negative mg/dL [facility] Protein, Urine Dipstick Negative Negative mg/dL [facility] Bilirubin, Urine Dipstick Negative Negative mg/dL [facility] Comment: Clinical correlation required for positive Urine Bilirubin results as false positive may occur with some drugs and drug related products. If a false positive is suspected a serum total bilirubin should be considered if clinically indicated. Urobilinogen, Urine Dipstick Normal Normal mg/dL [facility] pH, Urn (dipstick) 6.0 5.0 - 8.0 [facility] Blood, Urine Dipstick Negative Negative mg/dL [facility] Ketone, Urine Dipstick Negative Negative mg/dL [facility] Nitrite, Urine Dipstick Negative Negative [facility] Leukocytes, Urine Dipstick Small(A) Negative [facility] Appearance, Urine Dipstick Clear Clear [facility] Specific Imogene Urine Automated 1.015 1.005 - 1.030 [facility] Color, Urine Dipstick Yellow Yellow [facility] Reflex to Culture No [facility] Urine NS 01/25/2024 4:00 PM EDT 01/25/2024 5:05 PM EDT Narrative Resulting Agency Comment Spec In Lab Manuel Ricks MD URINE ORDERABLES Performing Organization Address [facility] de Phone Number [facility] [place] [address] * Magnesium (01/25/2024 3:56 PM EDT) Magnesium 0.92 0.69 - 1.07 mmol/L [facility] Blood 01/25/2024 3:56 PM EDT 01/25/2024 4:03 PM EDT Narrative Resulting Agency Comment Spec In Lab Manuel Ricks MD CHEMISTRY ORDERABLES Performing Organization Address [facility] Phone Number [facility] [place] [address] * (ABNORMAL) Comprehensive metabolic panel (non-fasting) (01/25/2024 3:56 PM EDT) Glucose 84 65 - 199 mg/dL [facility] Comment:Diabetes: >=200 mg/d L plus symptoms Blood Urea Nitrogen 28(H) 8 - 18 mg/dL [facility] Creatinine 1.28(H) 0.70 - 1.20 mg/dL [facility] Sodium 132(L) 135 - 145 mmol/L [facility] Potassium 4.5 3.5 - 5.0 mmol/L [facility] Comment: Please note: ??Patients with WBC >100,000 may have falsely elevated Potassium levels. ??For accurate Potassium quantification in these patients send serum separator tube (gold top) for subsequent determinations. ??Contact the Clinical Chemistry Laboratory if there are any questions. Chloride 98 98 - 107 mmol/L [facility] Carbon Dioxide 27 22 - 31 mmol/L [facility] Anion Gap 7 5 - 15 mmol/L [facility] Calcium 9.4 8.5 - 10.5 mg/dL [facility] Protein, Total 7.6 6.1 - 8.0 g/dL [facility] Albumin 4.1 3.2 - 5.2 g/dL [facility] Aspartate Aminotransferase 28 0 - 30 unit/L [facility] Alanine Aminotransferase 18 0 - 30 unit/L [facility] Alkaline Phosphatase 84 35 - 105 unit/L [facility] Bilirubin, Total 0.4 0.2 - 1.3 mg/dL [facility] Est Glomerular Filtration Rate 41(L) >=60 mL/min/1. 73 m?? [facility] Comment: This patient's estimated GFR [...] In Lab Manuel Ricks MD CHEMISTRY ORDERABLES [facility] [place] [address] * PTH (01/25/2024 3:56 PM EDT) Parathyroid Hormone 47 15 - 65 pg/mL [facility] Blood 01/25/2024 3:56 PM EDT 01/25/2024 4:03 PM EDT Narrative Resulting Agency Comment Spec In Lab Manuel Ricks MD CHEMISTRY ORDERABLES Performing Organization Address City/[facility]/ZIP Co de Phone Number [facility] [place] [address] * Phosphorus (01/25/2024 3:56 PM EDT) Phosphorus 3.8 2.5 - 4.5 mg/dL [facility] Blood 01/25/2024 3:56 PM EDT 01/25/2024 4:03 PM EDT Narrative Resulting Agency Comment Spec In Lab Manuel Ricks MD CHEMISTRY ORDERABLES Performing Organization Address City/[facility]/ZIP Co de Phone Number [facility] [place] [address] documented in this encounter Visit Diagnoses Diagnosis Stage 3a chronic kidney disease documented in this encounter Care Teams Mold Yard Crane Operator Relationship Specialty Start Date End Date Uyen Gerard MD [facility] [address] [place] [address] PCP - General 07/01/13 documented as of this encounter
--- OUTSIDE RECORDS SUMMARY | 2024-07-08 14:54 | XMS_ITS | Encounter Summary ---
Author Organization [facility] [place] [address] Care Team Providers Care Residential Door Unit Installer Name Role Phone Uyen Gerard MD Primary Care Provider [phone] Reason for Referral * Diagnostic Test (Routine) - Closed Specialty Diagnoses / Procedures Referred By Alicia callahan Referred To Contact Radiology Diagnoses Pulmonary nodule Procedures CT Chest wo Contrast (Generic) Carmelina Donaldson MD [facility] [place] [address] [facility] [place] [address] Referral ID Status Reason Start Date Expiration Date V isits Requested Visits Authorized [id number] Closed Specialty Service Requested 01/07/2023 07/10/2024 1 1 Encounter Details Date Type Department Care Team (Late st Contact Info) Description 01/07/2023 1:00 PM EDT [place] [address] Carmelina Donaldson MD [facility] [place] [address] Pulmonary nodule; Bronchiectasis without complication [...] CT that showed stability. She was in [place] this winter and while on a [...] Office Visit from 03/31/2014 in Pulmonology at [facility] Office Visit from 09/16/2013 in Pulmonology at [facility] Office Visit from 03/11/2013 in Pulmonology at [facility] PFT Results Peak Flow 300 L/min [...] 1:30 PM EDT [place] [address] Carmelina Donaldson MD [facility] [place] [address] documented as of this encounter Results * [...] have questions please contact the health healthcare economics consultant that requested your imaging first. ? Narrative [...] who have questions please contactthe health healthcare economics consultant that requested your imaging first. Carmelnia Donaldson MD IMG CT ORDERABLES documented in this encounter Visit Diagnoses Diagnosis Pulmonary nodule Solitary pulmonary nodule Bronchiectasis without complication Bronchiectasis without acute exacerbation Pulmonary nodule Solitary pulmonary nodule documented in this encounter Care Teams Residential Door Unit Installer Relationship Specialty Start Date End Date Uyen Gerard MD [address] [place] [address] PCP - General 07/01/13 documented as of this encounter
--- OUTSIDE RECORDS SUMMARY | 2024-07-08 14:55 | XMS_ITS | Encounter Summary ---
Author Organization [facility] [place] [address] Care Team Providers Care Travel Manager Name Role Phone Uyen Zamora MD Primary Care Provider [phone] Encounter Details Date Type Department Care Team (Late st Contact Info) Description 05/29/2015 1:30 PM EDT Follow-Up Neph[place] [phone] CLINIC, Jannie Medrano MD [facility] [place] [address] CKD (chronic kidney disease), stage III Discharge [...] Bustillos Benji - 05/29/2015 1:33 PM EDT [facility] Nephrology/Hypertension Follow Up Jerri Velasco [id number] 1935 ID: [id number] y.o. female for CKD [...] Preet Leblanc. MD [employer] Nephrology Fellow Pager# [phone] UYEN ZAMORA MD (General) [facility] [address] [place], [place] [address] documented in this encounter Plan of Treatment Upcoming Encounters Date Type Department Care Team (Late st Contact Info) Description 01/18/2025 1:30 PM EDT Office [place] [phone] Carmelina Donaldson MD [facility] [place] [address] documented as of this encounter Procedures Procedure [...] EDT) Phosphorus 3.4 2.5 - 4.5 mg/dL CERNER MILLENNIUM Blood specimen (specimen) Venous Draw / Unknown 05/29/2015 2:12 PM EDT 05/29/2015 2:26 PM EDT Narrative Resulting Agency Comment Spec In Lab Jannie Oviedo MD CHEMISTRY ORDERABLE S CERNER MILLENNIUM * Differential, Automated (05/29/2015 2:12 PM EDT) [...] Lab Jannie Oviedo MD HEMATOLOGY ORDERABL ES CERNER MILLENNIUM * Hemogram (05/29/2015 2:12 PM EDT) White [...] MD HEMATOLOGY ORDERABL ES Performing Organization Address [facility] de Phone Number CERNER MILLENNIUM * PTH (05/29/2015 2:12 PM EDT) Parathyroid Hormone 31 15 - 65 pg/mL CERNER MILLENNIUM Blood specimen (specimen) 05/29/2015 2:12 PM EDT 05/29/2015 2:26 PM EDT Narrative Resulting Agency Comment Spec In Lab Jannie Oviedo MD CHEMISTRY ORDERABLE S Performing Organization Address [facility] de Phone Number [facility] MILL[facility] * (ABNORMAL) Basic Metabolic Panel (non-fasting) (05/29/2015 2:12 PM EDT) Glucose 80 65 - 199 mg/dL CERNER MILLENNIUM Comment:Diabetes: >=200 [...] the following links into your internet browser. [email or web address] Blood specimen (specimen) 05/29/2015 2:12 PM EDT 05/29/2015 2:26 PM EDT Narrative Resulting Agency Comment Spec In Lab Jannie Oviedo MD CHEMISTRY ORDERABLE S CERDELISA CHARLESIUM documented in this encounter Visit Diagnoses Diagnosis CKD (chronic kidney disease), stage III Chronic kidney disease, Stage III (moderate) documented in this encounter Care Teams Travel Manager Relationship Specialty Start Date End Date Uyen Zamora MD [address] [place] [address] PCP - General 07/01/13 documented as of this encounter
--- OUTSIDE RECORDS SUMMARY | 2024-07-08 14:55 | XMS_ITS | Encounter Summary ---
Author Organization [facility] [place] [address] Care Team Providers Care Engineering Project Manager Name Role Phone Uyen Gearrd MD Primary Care Provider [phone] Encounter Details Date Type Department Care Team (Late st Contact Info) Description 04/25/2015 Orders Only Neph[place] [phone] Jannie Oviedo MD [facility] [place] [address] Social History Tobacco Use Types Packs/Day Years [...] 1:30 PM EDT Office [place] [address] Carmelina Donaldson MD [facility] [address] documented as of this encounter Procedures Procedure [...] on filedocumented in this encounter Care Teams Engineering Project Manager Relationship Specialty Start Date End Date Uyen Gerard MD [address] [place] [address] PCP - General 07/01/13 documented as of this encounter
--- OUTSIDE RECORDS SUMMARY | 2024-07-08 14:55 | XMS_ITS | Encounter Summary ---
Author Organization [facility] [place] [address] Care Team Providers Care Culinary Intern Name Role Phone Uyen Gerard MD Primary Care Provider [phone] Encounter Details Date Type Department Care Team (Late st Contact Info) Description 11/07/2014 Telephone Pulmonology at [address] [phone] Ming Carter MD [facility] [address] [address] Social History Tobacco Use Types Packs/Day Years [...] 11/07/2014 2:32 PM EST Pulmonary group at [facility] has good members in it so i would be comfortable with him seeing anyone. Dr Canas has seen some of my pt and she appears to be highly competent * Telephone Encounter - Irene Tracy RN - 11/07/2014 1:[address] Argueta- former patient of Dr. Carter's with hx of severe COPD. She wishes to continue care closer to home, [place], recommended [facility] Pulmonology. She is agreeable to this, did advise she will require referral from PCP to be seen in [facility] Pulmonology, she inquired who would we recommend for her to see there. Do you have any suggestions? * Telephone Encounter - Danis Mcpherson - 11/07/2014 10:39 AM EST Patient would like to know if any of our Cross Tie Tram Loader's could recommend a Pulmonary doctor closer to her [place] home at either [facility] or [facility]. documented in this encounter Plan of Treatment Upcoming Encounters Date Type Department Care Team (Late st Contact Info) Description 01/18/2025 1:30 PM EDT Office [place] [address] Carmelina Donaldson MD [facility] [place] [address] documented as of this encounter Visit Diagnoses Not on filedocumented in this encounter Care Teams Culinary Intern Relationship Specialty Start Date End Date Uyen Gerard MD [address] [place] [address] PCP - General 07/01/13 documented as of this encounter
--- OUTSIDE RECORDS SUMMARY | 2024-07-08 14:55 | XMS_ITS | Encounter Summary ---
Author Organization [facility] [place] [address] Care Team Providers Care Fingernail Former Name Role Phone Uyen Zamora MD Primary Care Provider [phone] Encounter Details Date Type Department Care Team (Latest Contact Info) Description 03/02/2015 10:00 AM EDT Office Visit [place] [address] Marline Maradiaga MD [facility] [place] [address] Essential hypertension Discharge Disposition: Home Social History [...] 7:23 PM EDT Hypertension/Nephrology Consultation Jerri Velasco [id number] 1935 ID: [id number] y.o. old female seen at the request of Dr. Zamora for evaluation of hypertension Past Medical History: [...] of this interesting patient. Please CC to: UYEN ZAMORA MD [facility] [address] [place] [address] documented in this encounter Miscellaneous Notes * Addendum Note - Marline Maradiaga MD - 03/06/2015 10:05 AM EDTAddended by: MARLINE MARADIAGA on: 03/06/2015 10:05 AM Modules accepted: Level of Service documented in this encounter Plan of Treatment Upcoming Encounters Date Type Department Care Team (Late st Contact Info) Description 01/18/2025 1:30 PM EDT Office [place] [address] Carmelina Donaldson MD [facility] [place] [address] documented as of this encounter Visit Diagnoses Diagnosis Essential hypertension Unspecified essential hypertension documented in this encounter Care Teams Fingernail Former Relationship Specialty Start Date End Date Uyen Zamora MD [address] [place] [address] PCP - General 07/01/13 documented as of this encounter
--- OUTSIDE RECORDS SUMMARY | 2024-07-08 14:55 | XMS_ITS | Encounter Summary ---
Author Organization [facility] [place] [address] Care Team Providers Care Cut Out Machine Operator Name Role Phone Uyen Gerard MD Primary Care Provider [phone] Encounter Details Date Type Department Care Team (Late st Contact Info) Description 02/12/2022 Orders Only [place] [address] Manuel Ricks MD [facility] [place] [address] Chronic kidney disease, unspecified CKD stage; Vitamin [...] 1:30 PM EDT Office [place] [phone] Carmelina Donaldson MD [facility] [place] [address] documented as of this encounter Results * Magnesium (02/14/2022 8:55 AM EDT) Magnesium 0.94 0.69 - 1.07 mmol/L [facility] Blood 02/14/2022 8:55 AM EDT 02/14/2022 9:03 AM EDT Narrative Resulting Agency Comment Spec In Lab Manuel Ricks MD CHEMISTRY ORDERABLES Performing Organization Address City/[facility]/ZIP Co de Phone Number [facility] [place] [address] * Vitamin D, 25-Hydroxy (02/14/2022 8:55 AM EDT) Vitamin D Total 25 OH 84 21 - 100 ng/mL [facility] Vit D Interp Sufficient [facility] Blood 02/14/2022 8:55 AM EDT 02/14/2022 9:03 AM EDT Narrative Resulting Agency Comment Spec In Lab Manuel Ricks MD CHEMISTRY ORDERABLES Performing Organization Address City/[facility]/ZIP Co de Phone Number [facility] [place] [address] * PTH (02/14/2022 8:55 AM EDT) Parathyroid Hormone 63 15 - 65 pg/mL [facility] Blood 02/14/2022 8:55 AM EDT 02/14/2022 9:03 AM EDT Narrative Resulting Agency Comment Spec In Lab Manuel Ricks MD CHEMISTRY ORDERABLES Performing Organization Address City/[facility]/ZIP Co de Phone Number [facility] [place] [address] * Albumin Level (02/14/2022 8:55 AM EDT) Albumin 4.2 3.2 - 5.2 g/dL [facility] Blood 02/14/2022 8:55 AM EDT 02/14/2022 9:03 AM EDT Narrative Resulting Agency Comment Spec In Lab Manuel Ricks MD CHEMISTRY ORDERABLES Performing Organization Address City/[facility] Co de Phone Number [facility] [place] [address] * Phosphorus (02/14/2022 8:55 AM EDT) Phosphorus 2.9 2.5 - 4.5 mg/dL [facility] Blood 02/14/2022 8:55 AM EDT 02/14/2022 9:03 AM EDT Narrative Resulting Agency Comment Spec In Lab Manuel Ricks MD CHEMISTRY ORDERABLES Performing Organization Address [facility] de Phone Number [facility] [place] [address] * (ABNORMAL) Basic Metabolic Panel (non-fasting) (02/14/2022 8:55 AM EDT) Glucose 94 65 - 199 mg/dL [facility] Comment:Diabetes: >=200 mg/d L plus symptoms Blood Urea Nitrogen 29(H) 8 - 18 mg/dL [facility] Creatinine 0.98 0.70 - 1.20 mg/dL [facility] Sodium 127(L) 135 - 145 mmol/L [facility] Potassium 4.8 3.5 - 5.0 mmol/L [facility] Comment: Please note: ??Patients with WBC >100,000 may have falsely elevated Potassium levels. ??For accurate Potassium quantification in these patients send serum separator tube (gold top) for subsequent determinations. ??Contact the Clinical Chemistry Laboratory if there are any questions. Chloride 89(L) 98 - 107 mmol/L [facility] Carbon Dioxide 30 22 - 31 mmol/L [facility] Anion Gap 8 5 - 15 mmol/L [facility] Calcium 9.6 8.5 - 10.5 mg/dL [facility] Est Glomerular Filtration Rate 53(L) >=60 mL/min/1. 73 m?? [facility] Comment: This patient? s estimated glomerular [...] In Lab Manuel Ricks MD CHEMISTRY ORDERABLES [facility] [place] [address] documented in this encounter Visit Diagnoses Diagnosis Chronic kidney disease, unspecified CKD stage Vitamin D deficiency Unspecified vitamin D deficiency documented in this encounter Care Teams Cut Out Machine Operator Relationship Specialty Start Date End Date Uyen Gerard MD [address] [place] [address] PCP - General 07/01/13 documented as of this encounter
--- OUTSIDE RECORDS SUMMARY | 2024-07-08 14:55 | XMS_ITS | Encounter Summary ---
Author Organization [facility] [place] [address] Care Team Providers Care Staple Cutter Name Role Phone Uyen Gerard MD Primary Care Provider [phone] Encounter Details Date Type Department Care Team (Latest Contact Info) Description 03/17/2019 12:40 PM EDT Laboratory Appointment Lab [address] [place] [phone] Essential hypertension Social History Tobacco Use Types [...] 1:30 PM EDT Office [place] [phone] Carmelina Donaldson MD [facility] PULMONARY MEDICINE [place] [phone] documented as of this encounter Procedures Procedure [...] of body mass or the acutely ill. [email or web address] OK[facility] CITYnkf eGFR 60 >=60 mL/min/1. 73 m?? [facility] Comment: The eGFR was calculated using the CKD-EPI equation. As with all creatinine based estimates of kidney function, eGFR values calculated with the CKD-EPI equation are not accurate in patients with acute kidney failure, extremes of body mass or the acutely ill. [email or web address] CITYnkf Blood specimen (specimen) 03/17/2019 12:47 PM EDT 03/17/2019 12:52 PM EDT Narrative Resulting Agency Comment Spec In Lab Nicolás Gallagher MD CHEMISTRY ORDERABLES [facility] [place] [address] documented in this encounter Visit Diagnoses Diagnosis Essential hypertension Unspecified essential hypertension documented in this encounter Care Teams Staple Cutter Relationship Specialty Start Date End Date Uyen Gerard MD [address] [facility] 1 [place] [address] PCP - General 07/01/13 documented as of this encounter
--- OUTSIDE RECORDS SUMMARY | 2024-07-08 14:55 | XMS_ITS | Encounter Summary ---
[place] [address] Care Team Providers Care Connection Worker Name Role Phone Uyen Gerard MD Primary Care Provider [phone] Reason for Referral * Diagnostic Test (Routine) - Closed Specialty Diagnoses / Procedures Referred By Contac t Referred To Contact Radiology Diagnoses Bronchiectasis without complication Procedures CT Chest wo Contrast (Generic) Jack Martinez MD [facility] [place] [address] [facility] [place] [address] Referral ID Status Reason Start Date Expiration Date V isits Requested Visits Authorized [id number] Closed Specialty Service Requested 01/07/2021 07/10/2022 1 1 Encounter Details Date Type Department Care Team (Late st Contact Info) Description 01/07/2021 Orders [place] [address] Jack Martinez MD [facility] [place] [address] Bronchiectasis without complication (Primary Dx) [...] 1:30 PM EDT Office Visit Pulmonology at [facility] [place] [address] Carmelina Donaldson MD [facility] [place] [address] documented as of this encounter Results * [...] who have questions please contact the health wild animal caretaker that requested your imaging first. ? Narrative [...] exacerbation documented in this encounter Care Teams Connection Worker Relationship Specialty Start Date End Date Uyen Gerard MD [facility] [address] [place] [address] PCP - General 07/01/13 documented as of this encounter
--- OUTSIDE RECORDS SUMMARY | 2024-07-08 14:55 | XMS_ITS | Encounter Summary ---
Author Organization [facility] [place] [address] Care Team Providers Care Produce Department Supervisor Name Role Phone Uyen Gerard MD Primary Care Provider [phone] Reason for Visit * Reason Onset Date Comments Medication Refill 03/01/2019 Encounter Details Date Type Department Care Team (Late st Contact Info) Description 03/01/2019 Refill Nephrology [place] [address] Nicolás Gallagher MD [facility] [address] Essential hypertension Social History Tobacco Use Types [...] 1:30 PM EDT Office [place] [phone] Carmelina Donaldson MD [facility] [place] [address] documented as of this encounter Visit Diagnoses Diagnosis Essential hypertension Unspecified essential hypertension documented in this encounter Care Teams Produce Department Supervisor Relationship Specialty Start Date End Date Uyen Gerard MD [facility] [address] [place] [address] PCP - General 07/01/13 documented as of this encounter
--- OUTSIDE RECORDS SUMMARY | 2024-07-08 14:55 | XMS_ITS | Encounter Summary ---
Author Organization [place] [address] Care Team Providers Care Supervisor Finishing Department Name Role Phone Uyen Gerard MD Primary Care Provider [phone] Reason for Visit * Consultation (Routine) - Specialty Diagnoses / Procedures Referred By Contac t Referred To Contact Nephrology Diagnoses HTN RENAL CELL CARCINOMA Uyen Gerard MD [facility] [place] [facility] [place] [address] [place] [address] [facility] [address] [place] [id number] Referral ID Status Reason Start Date Expiration Date V isits Requested Visits Authorized [id number] Consult, Test [facility] 01/28/2019 01/28/2020 6 6 Encounter Details Date Type Department Care Team (Latest Contact Info) Description 02/24/2019 1:30 PM EDT Office Visit Neph[place] [address] Nicolás Gallagher MD [facility] [place] [address] Essential hypertension Social History Tobacco [...] hosiptalized in September of this year in [place] for uncontrolled HTN and atrial fibrillation, she remembers that her BP was as high as 180/100 The patients medications were increased, however, her BP has remained elevated and she was sent back to this clinic, The patient has been feeling weak and tired since her hospital stay in [place], she was recently seen in follow up by a sawmill or timber yard worker in [facility] recommended to decrease the Metroprolol [...] per day, no licorice, spends winter in [place], daughter is RN, workswith [employer] [employer]: Once in a while headaches, no [...] 1:30 PM EDT Office [place] [address] Carmelina Donaldson MD [facility] [place] [address] documented as of this encounter Procedures Procedure [...] EST) Glucose 68 65 - 199 mg/dL [facility] Comment:Diabetes: >=200 mg/d L plus symptoms Blood Urea Nitrogen 25(H) 8 - 18 mg/dL [facility] Creatinine 1.09 0.70 - 1.20 mg/dL [facility] Sodium 130(L) 135 - 145 mmol/L [facility] Potassium 4.8 3.5 - 5.0 mmol/L [facility] Comment: Please note: ??Patients with WBC >100,000 may have falsely elevated Potassium levels. ??For accurate Potassium quantification in these patients send serum separator tube (gold top) for subsequent determinations. ??Contact the Clinical Chemistry Laboratory if there are any questions. Chloride 91(L) 98 - 107 mmol/L [facility] Carbon Dioxide 30 22 - 31 mmol/L [facility] Anion Gap 9 5 - 15 mmol/L [facility] Calcium 10.0 8.5 - 10.5 mg/dL [facility] Est Glomerular Filtration Rate 47(L) >=60 mL/min/1. 73 m?? [facility] Comment: The eGFR was calculated using the CKD-EPI equation. As with all creatinine based estimates of kidney function, eGFR values calculated with the CKD-EPI equation are not accurate in patients with acute kidney failure, extremes of body mass or the acutely ill. [email or web address] eGFR 55(L) >=60 mL/min/1. 73 m?? [facility] Comment: The eGFR was calculated using the CKD-EPI equation. As with all creatinine based estimates of kidney function, eGFR values calculated with the CKD-EPI equation are not accurate in patients with acute kidney failure, extremes of body mass or the acutely ill. [email or web address] Blood specimen (specimen) 08/15/2019 12:00 PM EST 08/15/2019 12:09 PM EST Narrative Resulting Agency Comment Spec In Lab Nicolás aGllagher MD CHEMISTRY ORDERABLES [facility] [place] [address] * (ABNORMAL) Basic Metabolic Panel (non-fasting) (03/17/2019 12:47 PM EDT) Glucose 79 65 - 199 mg/dL [facility] Comment:Diabetes: >=200 mg/d L plus symptoms Blood Urea Nitrogen 21(H) 8 - 18 mg/dL [facility] Creatinine 1.01 0.70 - 1.20 mg/dL [facility] Sodium 136 135 - 145 mmol/L [facility] Potassium 4.4 3.5 - 5.0 mmol/L [facility] Comment: Please note: ??Patients with WBC >100,000 may have falsely elevated Potassium levels. ??For accurate Potassium quantification in these patients send serum separator tube (gold top) for subsequent determinations. ??Contact the Clinical Chemistry Laboratory if there are any questions. Chloride 99 98 - 107 mmol/L [facility] Carbon Dioxide 29 22 - 31 mmol/L [facility] Anion Gap 8 5 - 15 mmol/L [facility] Calcium 9.2 8.5 - 10.5 mg/dL [facility] Est Glomerular Filtration Rate 52(L) >=60 mL/min/1. 73 m?? [facility] Comment: The eGFR was calculated using the CKD-EPI equation. As with all creatinine based estimates of kidney function, eGFR values calculated with the CKD-EPI equation are not accurate in patients with acute kidney failure, extremes of body mass or the acutely ill. [email or web address] eGFR 60 >=60 mL/min/1. 73 m?? [facility] Comment: The eGFR was calculated using the CKD-EPI equation. As with all creatinine based estimates of kidney function, eGFR values calculated with the CKD-EPI equation are not accurate in patients with acute kidney failure, extremes of body mass or the acutely ill. [email or web address] Blood specimen (specimen) 03/17/2019 12:47 PM EDT 03/17/2019 12:52 PM EDT Narrative Resulting Agency Comment Spec In Lab Nicolás Gallagher MD CHEMISTRY ORDERABLES [facility] [place] [address] * (ABNORMAL) Differential, Automated (02/24/2019 3:10 PM EDT) Neutrophil % 68.0 % [facility] Neutrophil Absolute 6.16(H) 1.70 - 6.10 x10(3)/mc L [facility] Lymph % 18.3 % [facility] Lymphocytes Abs 1.7 0.9 - 3.2 x10(3)/[facility] Monocyte % 10.4 % [facility] Monocyte Abs 0.9 0.3 - 0.9 x10(3)/[facility] Eos % 2.0 % [facility] Eosinophils Abs 0.2 0.0 - 0.4 x10(3)/[facility] Basophil % 0.9 % [facility] Baso Absolute 0.1 0.0 - 0.1 x10(3)/[facility]OR[facility] Immature Gran % 0.40 % [facility] Comment: Immature granulocytes(IG's)percentage and absolute count will include metamyelocytes, myelocytes, and promyelocytes. Blood smears from CBCs yielding IG's will be scanned manually for concordance. If this scan disagrees with the automated IG or if promyelocytes are noted, a manual differential will be performed. Immature Gran Absolute 0.04 0.00 - 0.04 x10(3)/[facility] Blood specimen (specimen) 02/24/2019 3:10 PM EDT 02/24/2019 3:17 PM EDT Narrative Resulting Agency Comment Spec In Lab Nicolás Gallagher MD HEMATOLOGY ORDERABLE S [facility] [place] [address] * Hemogram (02/24/2019 3:10 PM EDT) White Blood Cell 9.1 4.0 - 9.5 x10(3)/[facility] Red Blood Cell 4.78 4.00 - 5.21 x10(6)/[facility] Hemoglobin 14.0 11.7 - 15.5 gm/dL [facility] Hematocrit 42.7 35.7 - 45.8 % [facility] Mean Cell Volume 89.3 82.6 - 94.4 fL [facility] Mean Cell Hemoglobin 29.3 27.1 - 32.0 pg [facility] Mean Cell Hemoglobin Concentration 32.8 31.7 - 35.0 gm/dL [facility] Platelet 241 145 - 357 x10(3)/[facility]ORATORY RDW Standard Deviation 45.1 37.0 - 46.0 fL [facility] RDW coefficient of variation 13.7 11.5 - 14.1 % [facility] Mean Platelet Volume 9.4 7.6 - 12.9 fL [facility] NRBC% auto 0.0 % [facility] NRBC Absolute 0.000 0.000 - 0.000 x10(3)/[facility] Blood specimen (specimen) 02/24/2019 3:10 PM EDT 02/24/2019 3:17 PM EDT Narrative Resulting Agency Comment Spec In Lab Nicolás Gallagher MD HEMATOLOGY ORDERABLE S [facility] [place] [address] * Aldosterone (02/24/2019 3:10 PM EDT) [facility] Aldosterone (JANUARY) 5.8 <=21 ng/dL [facility] Comment: ADDITIONAL INFORMATION Reference range for patients 11 years and older is based on upright A.M. collection from subjects without sodium restrictions. This test was developed and its performance characteristics determined by [facility] in a manner consistent with CLIA requirements. This test has not been cleared or approved by the U.S. Food and Drug Administration. Test Performed by: [facility] [address] [place] [address] Blood specimen (specimen) 02/24/2019 3:10 PM EDT 02/24/2019 3:46 PM EDT Narrative Resulting Agency Comment Spec In Lab Nicolás Gallagher MD LAB SEND OUT ORDERAB LES Performing Organization Address [facility] Co de Phone Number [facility] [place] [address] * Renin Activity (02/24/2019 3:10 PM EDT) Renin Activity (JANUARY) <0.6 ng/ml/hr [facility] Comment: REFERENCE VALUE (Peripheral vein specimen) Na-deplete, upright: ??Mean: 5.9 ??Range: 2.9-10.8 Na-replete, upright: ??Mean: 1.0 ??Range: < or =0.6-3.0 ADDITIONAL INFORMATION Testing performed by Liquid Chromatography-Tandem Mass Spectrometry (LC-MS/MS). This test was developed and its performance characteristics determined by [facility] in a manner consistent with CLIA requirements. This test has not been cleared or approved by the U.S. Food and Drug Administration. Test Performed by: [facility] [address] [place] [address] Blood specimen (specimen) 02/24/2019 3:10 PM EDT 02/24/2019 3:55 PM EDT Narrative Resulting Agency Comment Spec In Lab Nicolás Gallagher MD LAB SEND OUT ORDERAB LES Performing Organization Address [facility]/ZIP Co de Phone Number [facility] [place] [address] * Magnesium (02/24/2019 3:10 PM EDT) Magnesium 0.85 0.69 - 1.07 mmol/L [facility] Blood specimen (specimen) 02/24/2019 3:10 PM EDT 02/24/2019 3:17 PM EDT Narrative Resulting Agency Comment Spec In Lab Nicolás Gallagher MD CHEMISTRY ORDERABLES Performing Organization Address [facility]/ZIP Co de Phone Number [facility] [place] [address] * PTH (02/24/2019 3:10 PM EDT) Parathyroid Hormone 37 15 - 65 pg/mL [facility] Blood specimen (specimen) 02/24/2019 3:10 PM EDT 02/24/2019 3:17 PM EDT Narrative Resulting Agency Comment Spec In Lab Nicolás Gallagher MD CHEMISTRY ORDERABLES Performing Organization Address [facility] Co de Phone Number [facility] [place] [address] * Albumin Level (02/24/2019 3:10 PM EDT) Albumin 3.9 3.2 - 5.2 gm/dL [facility] Blood specimen (specimen) 02/24/2019 3:10 PM EDT 02/24/2019 3:17 PM EDT Narrative Resulting Agency Comment Spec In Lab Nicolás Gallagher MD CHEMISTRY ORDERABLES Performing Organization Address [facility] Co de Phone Number [facility] [place] [address] * Uric acid (02/24/2019 3:10 PM EDT) Uric Acid 4.5 2.5 - 6.5 mg/dL [facility] Blood specimen (specimen) 02/24/2019 3:10 PM EDT 02/24/2019 3:17 PM EDT Narrative Resulting Agency Comment Spec In Lab Nicolás Gallagher MD CHEMISTRY ORDERABLES [facility] [place] [address] * (ABNORMAL) Basic Metabolic Panel (non-fasting) (02/24/2019 3:10 PM EDT) Glucose 92 65 - 199 mg/dL [facility] Comment:Diabetes: >=200 mg/d L plus symptoms Blood Urea Nitrogen 19(H) 8 - 18 mg/dL [facility] Creatinine 0.97 0.70 - 1.20 mg/dL [facility] Sodium 132(L) 135 - 145 mmol/L [facility] Potassium 4.4 3.5 - 5.0 mmol/L [facility] Comment: Please note: ??Patients with WBC >100,000 may have falsely elevated Potassium levels. ??For accurate Potassium quantification in these patients send serum separator tube (gold top) for subsequent determinations. ??Contact the Clinical Chemistry Laboratory if there are any questions. Chloride 94(L) 98 - 107 mmol/L [facility] Carbon Dioxide 26 22 - 31 mmol/L [facility] Anion Gap 12 5 - 15 mmol/L [facility] Calcium 9.4 8.5 - 10.5 mg/dL [facility] Est Glomerular Filtration Rate 54(L) >=60 mL/min/1. 73 m?? [facility] Comment: The eGFR was calculated using the CKD-EPI equation. As with all creatinine based estimates of kidney function, eGFR values calculated with the CKD-EPI equation are not accurate in patients with acute kidney failure, extremes of body mass or the acutely ill. [email or web address] eGFR 63 >=60 mL/min/1. 73 m?? [facility] Comment: The eGFR was calculated using the CKD-EPI equation. As with all creatinine based estimates of kidney function, eGFR values calculated with the CKD-EPI equation are not accurate in patients with acute kidney failure, extremes of body mass or the acutely ill. [email or web address] Blood specimen (specimen) 02/24/2019 3:10 PM EDT 02/24/2019 3:17 PM EDT Narrative Resulting Agency Comment Spec In Lab Nicolás Gallagher MD CHEMISTRY ORDERABLES Performing Organization Address [facility]ZIP Co de Phone Number [facility] [place] [address] * U Albumin/Cre Ratio (02/24/2019 2:00 PM EDT) Albumin / Creatinin Ratio, Urine Not Calculated 0 - 29 mcg/mg Cr [facility] Comment: Reference Ranges: <30 [...] 2, 357? 362 Albumin, Urine <3.0 mg/L [facility] Creatinine, Urine 26 mg/dL [facility] Urine specimen (specimen) 02/24/2019 2:00 PM EDT 02/24/2019 2:09 PM EDT Narrative Resulting Agency Comment Spec In Lab Nicolás Gallagher MD URINE ORDERABLES Performing Organization Address [facility]/ZIP Co de Phone Number [facility] [place] [address] documented in this encounter Visit Diagnoses Diagnosis Essential hypertension Unspecified essential hypertension documented in this encounter Care Teams Supervisor Finishing Department Relationship Specialty Start Date End Date Uyen Gerard MD [facility] [address] [place] [address] PCP - General 07/01/13 documented as of this encounter
--- OUTSIDE RECORDS SUMMARY | 2024-07-08 14:55 | XMS_ITS | Encounter Summary ---
Author Organization [facility] [place] [address] Care Team Providers Care Hospitality Coordinator Name Role Phone Uyen Gerard MD Primary Care Provider [phone] Reason for Visit * Reason Onset Date Comments Other 03/24/[address] scan Encounter Details Date Type Department Care Team (Late st Contact Info) Description 03/24/2022 Telephone Pulmonology at [facility] [place] [address] Ana Paula Damon RN Other (Low CT [...] have received a VM from Jacky @ [facility] from Dr. Gerard office, (p) [phone], ext.[phone]. She is calling on behalf of the Pt today to inquire about a f/u low dose chest CT scan. Pt expressed concern and anxiety about when this will be done so Jacky is reaching out for Pt. Jacky requests call back at number provided. I will defer to Dr. Donaldson for plan of care. Ana Paula Damon RN Department of Pulmonary 5C, [facility] / Pager: [phone] documented in this encounter Plan of Treatment Upcoming Encounters Date Type Department Care Team (Late st Contact Info) Description 01/18/2025 1:30 PM EDT Office [place] [address] Carmelina Donaldson MD [facility] [place] [address] documented as of this encounter Visit Diagnoses Not on filedocumented in this encounter Care Teams Hospitality Coordinator Relationship Specialty Start Date End Date Uyen Gerard MD [facility] [address] [place] [address] PCP - General 07/01/13 documented as of this encounter
--- OUTSIDE RECORDS SUMMARY | 2024-07-08 14:55 | XMS_ITS | Encounter Summary ---
Author Organization [facility] [place] [address] Care Team Providers Care Intelligence Officer Basic Name Role Phone Uyen Gerard MD Primary Care Provider [phone] Encounter Details Date Type Department Care Team (Late st Contact Info) Description 02/15/2021 Telephone [place] [phone] Tami Hunter Social History Tobacco Use Types [...] 1:30 PM EDT Office [place] [phone] Carmelina Donaldson MD [facility] [place] [address] documented as of this encounter Visit Diagnoses Not on filedocumented in this encounter Care Teams Intelligence Officer Basic Relationship Specialty Start Date End Date Uyen Gerard MD [facility] DOM [address] [address] PCP - General 07/01/13 documented as of this encounter
--- OUTSIDE RECORDS SUMMARY | 2024-07-08 14:55 | XMS_ITS | Encounter Summary ---
Author Organization [facility] [place] [address] Care Team Providers Care Unit Clerk Name Role Phone Uyen Gearrd MD Primary Care Provider [phone] Encounter Details Date Type Department Care Team (Latest Contact Info) Description 11/05/2020 4:30 PM EST TH Visit (TeleHealth) [place] [address] Nicolás Gallagher MD [facility] [place] [address] Essential hypertension Social History Tobacco Use Types [...] 1:30 PM EDT Office [place] [address] Carmelina Donaldson MD [facility] [place] [address] documented as of this encounter Visit Diagnoses Diagnosis Essential hypertension Unspecified essential hypertension documented in this encounter Care Teams Unit Clerk Relationship Specialty Start Date End Date Uyen Gerard MD [facility] DOM [address] [place] [address] PCP - General 07/01/13 documented as of this encounter
--- OUTSIDE RECORDS SUMMARY | 2024-07-08 14:55 | XMS_ITS | Encounter Summary ---
Author Organization [facility] Address [facility] [place] [address] Care Team Providers Care Welder Gas Name Role Phone Uyen Gerard MD Primary Care Provider [phone] Reason for Visit * Consultation (Routine) - Closed Specialty Diagnoses / Procedures Referred By Contac t Referred To Contact Pulmonology Diagnoses Bronchiectasis, uncomplicated Chronic obstructive pulmonary disease, unspecified Uyen Gerard MD [facility] [address] [address] [facility] Pulmonology [address] [place] [phone] Referral ID Status Reason Start Date Expiration Date V isits Requested Visits Authorized [id number] Closed Consult, Test & Treat Connection [facility] PCP Updated and/or Approved 11/19/2020 05/18/2021 6 6 Encounter Details Date Type Department Care Team (Late st Contact Info) Description 05/08/2021 12:00 PM EDT Office [place] [address] Carmelina Donaldson MD [facility] [place] [address] Interstitial lung disease; Pleural nodules [...] from the original note were not included. 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 Pt lives with her in a home. 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 Son-in-law neurologist Daughter CCRN Daughter RN public service administrator As child exposed to school friend [...] Office Visit from 03/31/2014 in Pulmonology at [facility] Office Visit from 09/16/2013 in Pulmonology at [facility] Office Visit from 03/11/2013 in Pulmonology at [facility] PFT Results Peak Flow 300 L/min 275 [...] 1:30 PM EDT Office [place] [phone] Carmelina Donaldson MD [facility] [place] [address] documented as of this encounter Procedures Procedure [...] / FVC LLN 61 % COMPAS PFT [id number] Actual Pre-BD 0.54 L/s COMPAS PFT FHU29-47 Pre-BD % of Predicted 39 % COMPAS PFT XXR89-27 Predicted 1.40 L/s COMPAS PFT IGN53-97 Pre-BD Z-Score -1.69 COMPAS PFT DLCO Hb [...] Normal resting and ambulatory oximetry. Procedure Note BackerMj MD - 05/30/2021 FINDINGS: FEV1, FVC, and [...] PM EDT) SS-B/La Ab <0.2 <1.0 (Negative) [facility] Comment: Test Performed by: [facility] [address] [place] [address] Product Introduction Manager: Ming Knight M.D. Ph.D.; CLIA# [id number] Blood 05/08/2021 1:02 PM EDT 05/08/2021 1:39 PM EDT Narrative Resulting Agency Comment Spec In Lab Carmelina Donaldson MD LAB SEND OUT ORDERAB LES Performing Organization Address City/[facility]/ZIP Co de Phone Number [facility] [place] [address] * SS-A/Ro Antibody (05/08/2021 1:02 PM EDT) [facility] SS-A/Ro Ab <0.2 <1.0 (Negative) [facility] Comment: Test Performed by: [facility] [address] [place] [address] Product Introduction Manager: Ming Knight M.D. Ph.D.; CLIA# [id number] Blood 05/08/2021 1:02 PM EDT 05/08/2021 1:39 PM EDT Narrative Resulting Agency Comment Spec In Lab Carmelina Donaldson MD LAB SEND OUT ORDERAB LES Performing Organization Address [facility] Co de Phone Number [facility] [place] [address] * Immunoglobulin E (IgE) (05/08/2021 1:02 PM EDT) [facility] IgE, Total 9 <=101 kU/L [facility] Comment: Pediatric age-specific reference ranges are reflected in result ranges. Adult reference ranges: <25 kU/L ??Normal 25-100 kU/L Equivocal >100 kU/L ??Elevated Blood 05/08/2021 1:02 PM EDT 05/08/2021 2:52 PM EDT Narrative Resulting Agency Comment Spec In Lab Carmelina Donaldson MD IMMUNOLOGY ORDERABLE S Performing Organization Address [facility]/ZIP Co de Phone Number [facility] [place] [address] * Cyclic Citrullinated Peptide (05/08/2021 1:02 PM EDT) [facility] Cyclic Citrulline Peptide <8.0 <=16.9 unit/mL [facility] Comment: Please note that due to a change in test format on 02/21/2021, the reference interval for this test has been updated and values greater than or equal to 17 U/mL are considered positive for the presence of anti-CCP antibodies. Blood 05/08/2021 1:02 PM EDT 05/08/2021 1:10 PM EDT Narrative Resulting Agency Comment Spec In Lab Cramelina Donaldson MD CHEMISTRY ORDERABLES Performing Organization Address [facility] Co de Phone Number [facility] [place] [address] * Rheumatoid factor, quant (05/08/2021 1:02 PM EDT) [facility] Rheumatoid Factor 14 <=14 IU/mL [facility] Blood 05/08/2021 1:02 PM EDT 05/08/2021 1:10 PM EDT Narrative Resulting Agency Comment Spec In Lab Carmelina Donaldson MD CHEMISTRY ORDERABLES Performing Organization Address [facility] Co de Phone Number [facility] [place] [address] * (ABNORMAL) CADEN (05/08/2021 1:02 PM EDT) [facility] CADEN Ab Screen Test ?Result ? Flag ??Unit ??RefValue Antinuclear Ab, HEp-2 Substrate, ?Positive 1:160 ??@ ?<1:80 (Negative) ??S ? ADDITIONAL INFORMATION --------- ?Method: Immunofluorescence using HEp-2 cellular substrate. ??CADEN Titer: ?1:160 ??CADEN Pattern: ?Speckled ?Test Performed by: ?[facility] ?[address] [place] [address] ?Product Introduction Manager: Ming Knight M.D. Ph.D.; CLIA# [id number] ([id number]) [facility] Blood 05/08/2021 1:02 PM EDT 05/08/2021 1:39 PM EDT Narrative Resulting Agency Comment Spec In Lab Carmelina Donaldson MD LAB SEND OUT ORDERAB LES [facility] [place] [address] documented in this encounter Visit Diagnoses Diagnosis Interstitial lung disease Postinflammatory pulmonary fibrosis Pleural nodules Swelling, mass, or lump in chest Interstitial lung disease Postinflammatory pulmonary fibrosis documented in this encounter Care Teams Welder Gas Relationship Specialty Start Date End Date Uyen Gerard MD [address] [place] [address] PCP - General 07/01/13 documented as of this encounter
--- OUTSIDE RECORDS SUMMARY | 2024-07-08 14:55 | XMS_ITS | Encounter Summary ---
Author Organization [facility] [place] [address] Care Team Providers Care Oil Well Fishing Tool Technician Name Role Phone Uyen Gerard MD Primary Care Provider [phone] Encounter Details Date Type Department Care Team (Latest Contact Info) Description 08/15/2019 1:30 PM EST Office Visit [place] [address] Nicolás Gallagher MD [facility] [place] [address] Stage 3 chronic kidney disease Social History [...] 1:30 PM EDT Office [place] [address] Carmelina Donaldson MD [facility] [place] [address] documented as of this encounter Visit Diagnoses Diagnosis Stage 3 chronic kidney disease documented in this encounter Care Teams Oil Well Fishing Tool Technician Relationship Specialty Start Date End Date Uyen Gerard MD [address] [facility] [address] [place] [address] PCP - General 07/01/13 documented as of this encounter
--- OUTSIDE RECORDS SUMMARY | 2024-07-08 14:55 | XMS_ITS | Encounter Summary ---
Author Organization [facility] [place] [address] Care Team Providers Care Chin Strap Cutter Name Role Phone Uyen Gerard MD Primary Care Provider [phone] Encounter Details Date Type Department Care Team (Late st Contact Info) Description 01/15/2021 [place] [phone] Tami Hunter Social History Tobacco Use Types [...] 1:30 PM EDT [place] [address] Carmelina Donaldson MD [facility] [place] [address] documented as of this encounter Visit Diagnoses Not on filedocumented in this encounter Care Teams Chin Strap Cutter Relationship Specialty Start Date End Date Uyen Gerard MD [facility] [address] [address] PCP - General 07/01/13 documented as of this encounter
--- OUTSIDE RECORDS SUMMARY | 2024-07-08 14:55 | XMS_ITS | Encounter Summary ---
Author Organization [facility] [place] [address] Care Team Providers Care Golf Teacher Name Role Phone Uyen Gerard MD Primary Care Provider [phone] Reason for Referral * Diagnostic Test (Routine) - Closed Specialty Diagnoses / Procedures Referred By Contac t Referred To Contact Radiology Diagnoses Bronchiectasis without complication Procedures CT Chest wo Contrast (Generic) Jack Martinez MD [facility] [place] [address] [facility] [place] [address] Referral ID Status Reason Start Date Expiration Date V isits Requested Visits Authorized [id number] Closed Specialty Service Requested 01/07/2021 07/10/2022 1 1 Reason for Visit * Diagnostic Test (Routine) - Closed Specialty Diagnoses / Procedures Referred By Contac t Referred To Contact Radiology Diagnoses Bronchiectasis without complication Procedures CT Chest wo Contrast (Generic) Jack Martinez MD [facility] [place] [address] [facility] [place] [address] Referral ID Status Reason Start Date Expiration Date V isits Requested Visits Authorized [id number] Closed Specialty Service Requested 01/07/2021 07/10/2022 1 1 Encounter Details Date Type Department Care Team (Latest Contact Info) Description 05/08/2021 9:54 AM EDT - 05/08/2021 11:59 PM EDT Hospital [place] [address] Jack Martinez MD [facility] [place] [address] Bronchiectasis without complication Discharge Disposition: Home Social [...] Dispensed Refills Start Date End Date fluticasone htxdvnp-uvjzjdjrbrie-lry anteroL (Trelegy Ellipta) 100-62.5-25 mcg inhaler (DPI) Inhale 1 puff into the lungs daily. 02/20/2020 apixaban (Eliquis) 5 mg Tablet [...] (COLACE ORAL) Take by mouth daily. 01/02/2009 omega-3 fatty acids/fish oil (OMEGA 3 [...] 1:30 PM EDT [place] [address] Carmelina Donaldson MD [facility] [place] [address] documented as of this encounter Procedures Procedure [...] who have questions please contact the health child caregiver private home that requested your imaging first. ? Electronically signed by: Delia Richard MD, [facility] ([phone]), at 05/08/2021 12:44 PM Narrative 05/08/2021 12:44 [...] exacerbation documented in this encounter Care Teams Golf Teacher Relationship Specialty Start Date End Date Uyen Gerard MD [address] [place] [address] PCP - General 07/01/13 documented as of this encounter
--- OUTSIDE RECORDS SUMMARY | 2024-07-08 14:55 | XMS_ITS | Encounter Summary ---
Author Organization [facility] [place] [address] Care Team Providers Care Music Minister Name Role Phone Uyen Gerard MD Primary Care Provider [phone] Reason for Visit * Reason Comments Medication Refill Encounter Details Date Type Department Care Team (Late st Contact Info) Description 02/06/2020 Refill [place]ph[place] [address] Nicolás Gallagher MD [facility] [place] [address] Essential hypertension Social History Tobacco Use Types [...] 1:30 PM EDT Office [place] [address] Carmelina Donaldson MD [facility] [place] [address] documented as of this encounter Visit Diagnoses Diagnosis Essential hypertension Unspecified essential hypertension documented in this encounter Care Teams Music Minister Relationship Specialty Start Date End Date Uyen Gerard MD [address] [facility] [address] [place] [address] PCP - General 07/01/13 documented as of this encounter
--- OUTSIDE RECORDS SUMMARY | 2024-07-08 14:55 | XMS_ITS | Encounter Summary ---
Author Organization [facility] [place] [address] Care Team Providers Care Forestry Faculty Member Name Role Phone Uyen Gerard MD Primary Care Provider [phone] Encounter Details Date Type Department Care Team (Late st Contact Info) Description 03/24/2022 [place] [address] Carmelina Donaldson MD [facility] [place] [address] Social History Tobacco Use Types Packs/Day Years [...] 1:30 PM EDT [place] [phone] Carmelina Donaldson MD [facility] [place] [address] documented as of this encounter Visit Diagnoses Diagnosis Pulmonary nodule Solitary pulmonary nodule documented in this encounter Care Teams Forestry Faculty Member Relationship Specialty Start Date End Date Uyen Gerard MD [address] [place] [address] PCP - General 07/01/13 documented as of this encounter
--- OUTSIDE RECORDS SUMMARY | 2024-07-08 14:55 | XMS_ITS | Encounter Summary ---
Author Organization [facility] Address [facility] [place] [address] Care Team Providers Care Soap Tender Name Role Phone Uyen Gerard MD Primary Care Provider [phone] Encounter Details Date Type Department Care Team (Late st Contact Info) Description 05/29/2015 1:55 PM EDT - 05/29/2015 11:59 PM EDT [place] [address] Jannie Oviedo MD [facility] [place] [address] CKD (chronic kidney disease), stage III Discharge [...] (COLACE ORAL) Take by mouth daily. 01/02/2009 albuterol (PROVENTIL HFA;VENTOLIN HFA) 90 mcg/actuation [...] 1:30 PM EDT Office [place] [address] Carmelina Donaldson MD [facility] [place] [address] documented as of this encounter Procedures Procedure Name Priority Date/Time Associated Diagnosis Comments PTH Routine 05/29/2015 2:12 PM EDT CKD (chronic kidney disease), stage III documented in this encounter Results * PTH (05/29/2015 2:12 PM EDT) Parathyroid Hormone 31 15 - 65 pg/mL LANIE HARRELL Blood specimen (specimen) 05/29/2015 2:12 PM EDT 05/29/2015 2:26 PM EDT Narrative Resulting Agency Comment Spec In Lab Jannie Oviedo MD CHEMISTRY ORDERABLE S LANIE HARRELL documented in this encounter Visit Diagnoses Diagnosis CKD (chronic kidney disease), stage III Chronic kidney disease, Stage III (moderate) documented in this encounter Care Teams Soap Tender Relationship Specialty Start Date End Date Uyen Gerard MD [facility] [address] [place] [address] PCP - General 07/01/13 documented as of this encounter
--- OUTSIDE RECORDS SUMMARY | 2024-07-08 14:55 | XMS_ITS | Encounter Summary ---
Author Organization [facility] [place] [address] Care Team Providers Care Ship Scraper Name Role Phone Uyen Gerard MD Primary Care Provider [phone] Encounter Details Date Type Department Care Team (Latest Contact Info) Description 05/29/2021 1:10 PM EDT - 05/29/2021 11:59 PM EDT Hospital En[place] [address] Interstitial lung disease Discharge Disposition: Home Social [...] Dispensed Refills Start Date End Date fluticasone kknezzb-kvbhxkwomhid-jrc anteroL (Trelegy Ellipta) 100-62.5-25 mcg inhaler (DPI) [...] 1:30 PM EDT Office [place] [address] Carmelina Donaldson MD [facility] [place] [address] documented as of this encounter Procedures Procedure [...] / FVC LLN 61 % COMPAS PFT ESB10-98 Actual Pre-BD 0.54 L/s COMPAS PFT TFC03-75 Pre-BD % of Predicted 39 % COMPAS PFT WOG38-06 Predicted 1.40 L/s COMPAS PFT AVH53-82 Pre-BD Z-Score -1.69 COMPAS PFT DLCO Hb [...] fibrosis documented in this encounter Care Teams Ship Scraper Relationship Specialty Start Date End Date Uyen Gerard MD [facility] [address] [place] [address] PCP - General 07/01/13 documented as of this encounter
--- OUTSIDE RECORDS SUMMARY | 2024-07-08 14:55 | XMS_ITS | Encounter Summary ---
Author Organization [facility] [place] [address] Care Team Providers Care Computer Video Game Designer Name Role Phone Uyen Gerard MD Primary Care Provider [phone] Reason for Visit * Reason Comments Skin Check Encounter Details Date Type Department Care Team (Late st Contact Info) Description 01/02/2015 10:45 AM EDT Office Visit Dermatology at [place] [address] [facility] [place] [address] Daniel Gupta MD [address] [place] [address] Stucco keratosis; Seborrheic keratosis; Dermal nevus of [...] from the original note were not included. [facility] Seborrheic Keratosis: After Your Visit Your [...] color and feel of the skin. ?? inspector metal can front of a full-length mirror. Look carefully [...] more? Visit our health information library at [email or web address] You can also view health information on [employer], your personal patient account. Log in or sign up today. Enter [id number] in the search box to learn more about Seborrheic Keratosis: After Your Visit. ?? [id number] [employer]. Care instructions adapted under license by [facility]. This care instruction is for use with your licensed healthcare professional. If you have questions about a medical condition or this instruction, always ask your healthcare professional. [employer] disclaims any warranty or liability for your use of this information. Content Version: 10.3.932492; Current as of: November 16, 2013 documented [...] 79-year-old woman who has a 1-cm, dark, swcdx-le-hvnhq, evenly pigmented, symmetric, and regularly margined junctional [...] large, 3.5-cm solar lentigo on the right denominational area; a small 8-mm seborrheic keratosis with a waxy, stuck-on, somewhat pedunculated appearance medially at the right immediate lateral canthus; and she has a 1.5-cm seborrheic keratosis developing on a solar lentigo on the left denominational area. Otherwise, examination of the head and [...] 1:30 PM EDT [place] [address] Carmelina Donaldson MD [facility] [place] [address] documented as of this encounter Visit Diagnoses Diagnosis Stucco keratosis Acquired keratoderma Seborrheic keratosis Other seborrheic keratosis Dermal nevus of other site Benign neoplasm of other specified sites of skin Solar lentigo Other dyschromia documented in this encounter Care Teams Computer Video Game Designer Relationship Specialty Start Date End Date Uyen Gerard MD [address] [place] [address] [address] PCP - General 07/01/13 documented as of this encounter
--- OUTSIDE RECORDS SUMMARY | 2024-07-08 14:55 | XMS_ITS | Encounter Summary ---
Author Organization [facility] [place] [address] Care Team Providers Care Wool Hanker Name Role Phone Uyen Gerard MD Primary Care Provider [phone] Encounter Details Date Type Department Care Team (Late st Contact Info) Description 11/02/2015 Telephone [place] [address] Tami Chatman Social History Tobacco [...] 1:30 PM EDT [place] [address] Carmelina Donaldson MD [facility] [place] [address] documented as of this encounter Visit Diagnoses Not on filedocumented in this encounter Care Teams Wool Hanker Relationship Specialty Start Date End Date Uyen Gerard MD [address] [facility] [address] [place] [address] PCP - General 07/01/13 documented as of this encounter
--- OUTSIDE RECORDS SUMMARY | 2024-07-08 14:55 | XMS_ITS | Encounter Summary ---
Author Organization [facility], Located Within [facility] [place] [address] Care Team Providers Care Assembly Line Driver Name Role Phone Uyen Gerard MD Primary Care Provider [phone] Encounter Details Date Type Department Care Team (Latest Contact Info) Description 08/15/2019 12:25 PM EST Laboratory Appointment Lab [address] [place] [phone] Essential hypertension Social History Tobacco Use Types [...] 1:30 PM EDT Office [place] [phone] Carmelina Donaldson MD [facility] PULMONARY MEDICINE [place] [id number] documented as of this encounter Procedures Procedure [...] 12:00 PM EST) Neutrophil % 66.6 % [facility] Neutrophil Absolute 6.18(H) 1.70 - 6.10 x10(3)/mc L [facility] Lymph % 17.9 % [facility] Lymphocytes Abs 1.7 0.9 - 3.2 x10(3)/mc L [facility] Monocyte % 12.4 % [facility] Monocyte Abs 1.2(H) 0.3 - 0.9 x10(3)/ L [facility] Eos % 1.5 % [facility] Eosinophils Abs 0.1 0.0 - 0.4 x10(3)/mc L [facility] Basophil % 1.0 % [facility] Baso Absolute 0.1 0.0 - 0.1 x10(3)/mc L [facility] Immature Gran % 0.60 % [facility] Comment: Immature granulocytes(IG's)percentage and absolute count will include metamyelocytes, myelocytes, and promyelocytes. Blood smears from CBCs yielding IG's will be scanned manually for concordance. If this scan disagrees with the automated IG or if promyelocytes are noted, a manual differential will be performed. Immature Gran Absolute 0.06(H) 0.00 - 0.04 x10(3)/mc L [facility] Blood specimen (specimen) 08/15/2019 12:00 PM EST 08/15/2019 12:09 PM EST Narrative Resulting Agency Comment Spec In Lab Nicolás Gallagher MD HEMATOLOGY ORDERABLE S [facility] [place] [address] * Hemogram (08/15/2019 12:00 PM EST) [facility] White Blood Cell 9.3 4.0 - 9.5 x10(3)/[facility] Red Blood Cell 4.64 4.00 - 5.21 x10(6)/[facility] Hemoglobin 13.7 11.7 - 15.5 gm/dL [facility] Hematocrit 41.2 35.7 - 45.8 % [facility] Mean Cell Volume 88.8 82.6 - 94.4 fL [facility] Mean Cell Hemoglobin 29.5 27.1 - 32.0 pg [facility] Mean Cell Hemoglobin Concentration 33.3 31.7 - 35.0 gm/dL [facility] Platelet 277 145 - 357 x10(3)/[facility] RDW Standard Deviation 42.2 37.0 - 46.0 [facility] RDW coefficient of variation 12.9 11.5 - 14.1 % [facility] Mean Platelet Volume 9.1 7.6 - 12.9 fL [facility] NRBC% auto 0.0 % [facility] NRBC Absolute 0.000 0.000 - 0.000 x10(3)/[facility] Blood specimen (specimen) 08/15/2019 12:00 PM EST 08/15/2019 12:09 PM EST Narrative Resulting Agency Comment Spec In Lab Nicolás Gallagher MD HEMATOLOGY ORDERABLE S [facility] [place] [address] * (ABNORMAL) Basic Metabolic Panel (non-fasting) (08/15/2019 12:00 PM EST) [facility] Glucose 68 65 - 199 mg/dL [facility] Comment:Diabetes: >=200 mg/d L plus symptoms Blood Urea Nitrogen 25(H) 8 - 18 mg/dL [facility] Creatinine 1.09 0.70 - 1.20 mg/dL [facility] Sodium 130(L) 135 - 145 mmol/L [facility] Potassium 4.8 3.5 - 5.0 mmol/L [facility] Comment: Please note: ??Patients with WBC >100,000 may have falsely elevated Potassium levels. ??For accurate Potassium quantification in these patients send serum separator tube (gold top) for subsequent determinations. ??Contact the Clinical Chemistry Laboratory if there are any questions. Chloride 91(L) 98 - 107 mmol/L [facility] Carbon Dioxide 30 22 - 31 mmol/L [facility] Anion Gap 9 5 - 15 mmol/L [facility] Calcium 10.0 8.5 - 10.5 mg/dL [facility] Est Glomerular Filtration Rate 47(L) >=60 mL/min/1. 73 m?? [facility] Comment: The eGFR was calculated using the CKD-EPI equation. As with all creatinine based estimates of kidney function, eGFR values calculated with the CKD-EPI equation are not accurate in patients with acute kidney failure, extremes of body mass or the acutely ill. [email or web address] eGFR 55(L) >=60 mL/min/1. 73 m?? [facility] Comment: The eGFR was calculated using the CKD-EPI equation. As with all creatinine based estimates of kidney function, eGFR values calculated with the CKD-EPI equation are not accurate in patients with acute kidney failure, extremes of body mass or the acutely ill. [email or web address] Blood specimen (specimen) 08/15/2019 12:00 PM EST 08/15/2019 12:09 PM EST Narrative Resulting Agency Comment Spec In Lab Nicolás Gallagher MD CHEMISTRY ORDERABLES [facility] [place] [address] documented in this encounter Visit Diagnoses Diagnosis Essential hypertension Unspecified essential hypertension documented in this encounter Care Teams Assembly Line Driver Relationship Specialty Start Date End Date Uyen Gerard MD [address] [facility] [address] [place] [address] PCP - General 07/01/13 documented as of this encounter
--- OUTSIDE RECORDS SUMMARY | 2024-07-08 14:55 | XMS_ITS | Encounter Summary ---
Author Organization [facility] [place] [address] Care Team Providers Care Flatwork Catcher Name Role Phone Uyen Gerard MD Primary Care Provider [phone] Encounter Details Date Type Department Care Team (Late st Contact Info) Description 04/01/2022 Ancillary Procedure Radiology Library at [facility] [place] [phone] Uyen Gerard MD [facility] [address] [address] Social History Tobacco Use Types Packs/Day Years [...] 1:30 PM EDT Office [place] [phone] Carmelina Donaldson MD [facility] [place] [address] documented as of this encounter Procedures Procedure Name Priority Date/Time Associated Diagnosis Comments FILM LIBRARY STORAGE ONLY CT CHEST Routine 04/01/2022 12:00 AM EDT documented in this encounter Results * Film Library- Storage Only CT Chest (04/01/2022 12:00 AM EDT) Narrative [facility] - 04/02/2022 10:37 AM EDT This exam is auto-finalizing. It's purpose is for storage only. Uyen Gerard MD IMG FILM LIBRARY ORD ERABLES Performing Organization Address City/State/[facility] Co de Phone Number [place], [place] documented in this encounter Visit Diagnoses Not on filedocumented in this encounter Care Teams Flatwork Catcher Relationship Specialty Start Date End Date Uyen Gerard MD [facility] [address] [place] [address] PCP - General 07/01/13 documented as of this encounter
--- OUTSIDE RECORDS SUMMARY | 2024-07-08 14:55 | XMS_ITS | Encounter Summary ---
Author Organization [facility] [place] [address] Care Team Providers Care Heavy Duty Diesel Mechanic Name Role Phone Uyen Gerard MD Primary Care Provider [phone] Encounter Details Date Type Department Care Team (Latest Contact Info) Description 02/14/2022 10:00 AM EDT Office Visit [place] [address] Manuel Ricks MD [facility] [place] [address] Hyponatremia; Stage 3a chronic kidney disease; COPD [...] 10:00 AM EDT Nephrology/Hypertension Clinic Follow-up Note [id number] ID: 87 y.o.year-old female for follow up [...] 20bid x 15 days but daughter (an switchboard operator helper) has advised her to taper after one week over one more week. Started pred last Thursday (this is day 6); today is last day of doxy. Feels fluid intake is up on current meds Does not use added salt and generally avoids salt Right foot tends to swell a little (this has been noticeable for some time) Went on cruise to [facility] in the spring, swelling of both [...] h/o afib but no h/o CHF. Sees health information technologist at [facility], most recently last Aug next. Has had [...] and no sx. She did travel to [facility] so had risk factor despite anticoagulation. She has f/u with her pcp and health information technologist this month who can assess need for additional w/u. F/u oyster culturist ordered for next week Patient will monitor her bp and let me know If all improves, f/u one year. CC: Uyen Gerard MD [facility] [address] [address] [place] Hawk Cardiology at [facility] documented in this encounter Plan of Treatment Upcoming Encounters Date Type Department Care Team (Late st Contact Info) Description 01/18/2025 1:30 PM EDT Office [place] [address] Carmelina Donaldson MD [facility] [place] [address] documented as of this encounter Procedures Procedure [...] Urine 21 0 - 29 mcg/mg Cr [facility] Comment: Reference Ranges: <30 [...] 2, 357? 362 Albumin, Urine 9.3 mg/L [facility] Creatinine, Urine 44 mg/dL [facility] Urine 02/14/2022 10:0 0 AM EDT 02/14/2022 11:50 AM EDT Narrative Resulting Agency Comment Spec In Lab Manuel Ricks MD URINE ORDERABLES Performing Organization Address [facility] de Phone Number [facility] [place] [address] * Sodium, urine, random (02/14/2022 10:00 AM EDT) Sodium, Urine 41 mmol/L [facility] Urine 02/14/2022 10:0 0 AM EDT 02/14/2022 11:50 AM EDT Narrative Resulting Agency Comment Spec In Lab Manuel Ricks MD URINE ORDERABLES Performing Organization Address [facility] de Phone Number [facility] [place] [address] * Osmolality, urine, random (02/14/2022 10:00 AM EDT) Osmolality, Urine 419 50 - 1,200 mOsm/kg [facility] Urine 02/14/2022 10:0 0 AM EDT 02/14/2022 11:50 AM EDT Narrative Resulting Agency Comment Spec In Lab Manuel Ricks MD URINE ORDERABLES Performing Organization Address City/State/[facility] Co de Phone Number [facility] [place] [address] documented in this encounter Visit Diagnoses Diagnosis Hyponatremia Hyposmolality and/or hyponatremia Stage 3a chronic kidney disease COPD exacerbation Obstructive chronic bronchitis with exacerbation Leukocytosis, unspecified type Hypertension, unspecified type documented in this encounter Care Teams Heavy Duty Diesel Mechanic Relationship Specialty Start Date End Date Uyen Gerard MD [address] [place] [address] PCP - General 07/01/13 documented as of this encounter
--- OUTSIDE RECORDS SUMMARY | 2024-07-08 14:55 | XMS_ITS | Encounter Summary ---
Author Organization [facility] [place] [address] Care Team Providers Care Apple Sorter Name Role Phone Uyen Gerard MD Primary Care Provider [phone] Encounter Details Date Type Department Care Team (Late st Contact Info) Description 04/03/2021 [place] [phone] Tami Hunter Social History Tobacco Use Types [...] 1:30 PM EDT [place] [phone] Carmelina Donaldson MD [facility] [place] [address] documented as of this encounter Visit Diagnoses Not on filedocumented in this encounter Care Teams Apple Sorter Relationship Specialty Start Date End Date Uyen Gerard MD [facility] [address] [address] PCP - General 07/01/13 documented as of this encounter
--- OUTSIDE RECORDS SUMMARY | 2024-07-08 14:55 | XMS_ITS | Encounter Summary ---
Author Organization [facility] [place] [address] Care Team Providers Care Digester Operator Helper Name Role Phone Uyen Gerard MD Primary Care Provider [phone] Encounter Details Date Type Department Care Team (Late st Contact Info) Description 03/06/2022 Notes Only Nephrology Hypertension at [facility] [place] [address] Manuel Ricks MD [facility] [place] [address] Social History Tobacco Use Types Packs/Day Years [...] 1:30 PM EDT Office Visit [place] [address] Carmelina Donaldson MD [facility] PULMONARY [place] [address] documented as of this encounter Visit Diagnoses Diagnosis Hyponatremia Hyposmolality and/or hyponatremia documented in this encounter Care Teams Digester Operator Helper Relationship Specialty Start Date End Date Uyen Gerard MD [facility] [address] [place] [address] PCP - General 07/01/13 documented as of this encounter
--- OUTSIDE RECORDS SUMMARY | 2024-07-08 14:55 | XMS_ITS | Encounter Summary ---
Author Organization [facility] [place] [address] Care Team Providers Care Program Arranger Name Role Phone Uyen Gerard MD Primary Care Provider [phone] Encounter Details Date Type Department Care Team (Late st Contact Info) Description 05/29/2021 4:00 PM EDT [place] [address] Carmelina Donaldson MD [facility] [place] [address] Dyspnea, unspecified type; Opacities of both lungs [...] Office Visit from 03/31/2014 in Pulmonology at [facility] Office Visit from 09/16/2013 in Pulmonology at [facility] Office Visit from 03/11/2013 in Pulmonology at [facility] PFT Results Peak Flow 300 [...] 1:30 PM EDT Office [place] [address] Carmelina Donaldson MD [facility] [place] [address] documented as of this encounter Visit Diagnoses Diagnosis Dyspnea, unspecified type Opacities of both lungs present on chest x-ray documented in this encounter Care Teams Program Arranger Relationship Specialty Start Date End Date Uyen Gerard MD [address] [place] [address] [address] PCP - General 07/01/13 documented as of this encounter
--- OUTSIDE RECORDS SUMMARY | 2024-07-08 14:55 | XMS_ITS | Encounter Summary ---
Author Organization [facility] [place] [address] Care Team Providers Care Ob/Gyn Nurse Name Role Phone Uyen Gerard MD Primary Care Provider [phone] Encounter Details Date Type Department Care Team (Latest Contact Info) Description 02/14/2022 9:00 AM EDT Laboratory Appointment Lab [address] [place] [phone] Chronic kidney disease, unspecified CKD stage; Vitamin [...] 1:30 PM EDT Office [place] [phone] Carmelina Donaldson MD [facility] [place] [address] documented as of this encounter Procedures Procedure [...] (02/14/2022 8:55 AM EDT) Plat estimate Increased [facility] RBC Morphology Abnormal [facility] Stippled RBC Present >1/HPF [facility] Blood 02/14/2022 8:55 AM EDT 02/14/2022 9:03 AM EDT Narrative Resulting Agency Comment Spec In Lab Manuel Ricks MD HEMATOLOGY ORDERABLE S [facility] [place] [address] * (ABNORMAL) Differential, Automated (02/14/2022 8:55 AM EDT) Neutrophil % 74.1 % [facility] Neutrophil Absolute 10.66(H) 1.70 - 6.10 x10(3)/ L [facility] Lymph % 8.5 % [facility] Lymphocytes Abs 1.2 0.9 - 3.2 x10(3)/[facility] Monocyte % 11.7 % [facility] Monocyte Abs 1.7(H) 0.3 - 0.9 x10(3)/[facility] Eos % 0.0 % [facility] Eosinophils Abs 0.0 0.0 - 0.4 x10(3)/[facility] Basophil % 0.1 % [facility] Baso Absolute 0.0 0.0 - 0.1 x10(3)/[facility] Immature Gran % 5.60 % [facility] Comment: Immature granulocytes(IG's)percentage and absolute count will include metamyelocytes, myelocytes, and promyelocytes. Blood smears from CBCs yielding IG's will be scanned manually for concordance. If this scan disagrees with the automated IG or if promyelocytes are noted, a manual differential will be performed. Immature Gran Absolute 0.80(H) 0.00 - 0.04 x10(3)/[facility] Blood 02/14/2022 8:55 AM EDT 02/14/2022 9:03 AM EDT Narrative Resulting Agency Comment Spec In Lab Manuel A Millicent CAMARA HEMATOLOGY ORDERABLE S [facility] [place] [address] * (ABNORMAL) Hemogram (02/14/2022 8:55 AM EDT) White Blood Cell 14.4(H) 4.0 - 9.5 x10(3)/[facility] Red Blood Cell 4.88 4.00 - 5.21 x10(6)/mc L [facility] Hemoglobin 14.6 11.7 - 15.5 g/dL [facility] Hematocrit 43.1 35.7 - 45.8 % [facility] Mean Cell Volume 88.3 82.6 - 94.[address] [facility] Mean Cell Hemoglobin 29.9 27.1 - 32.[address] [facility] Mean Cell Hemoglobin Concentration 33.9 31.7 - 35.0 g/dL [facility] Platelet 400(H) 145 - 357 x10(3)/mc L [facility] RDW Standard Deviation 41.4 37.0 - 46.[address] [facility] RDW coefficient of variation 12.8 11.5 - 14.1 % [facility] Mean Platelet Volume 8.4 7.6 - 12.[address] [facility] NRBC% auto 0.0 % [facility] NRBC Absolute 0.000 0.000 - 0.000 x10(3)/mc L [facility] Blood 02/14/2022 8:55 AM EDT 02/14/2022 9:03 AM EDT Narrative Resulting Agency Comment Spec In Lab Manuel Ricks MD HEMATOLOGY ORDERABLE S [facility] [place] [address] * (ABNORMAL) Basic Metabolic Panel (non-fasting) (02/14/2022 8:55 AM EDT) Glucose 94 65 - 199 mg/dL [facility] Comment:Diabetes: >=200 mg/d L plus symptoms Blood Urea Nitrogen 29(H) 8 - 18 mg/dL [facility] Creatinine 0.98 0.70 - 1.20 mg/dL [facility] Sodium 127(L) 135 - 145 mmol/L [facility] Potassium 4.8 3.5 - 5.0 mmol/L [facility] Comment: Please note: ??Patients with WBC >100,000 may have falsely elevated Potassium levels. ??For accurate Potassium quantification in these patients send serum separator tube (gold top) for subsequent determinations. ??Contact the Clinical Chemistry Laboratory if there are any questions. Chloride 89(L) 98 - 107 mmol/L [facility] Carbon Dioxide 30 22 - 31 mmol/L [facility] Anion Gap 8 5 - 15 mmol/L [facility] Calcium 9.6 8.5 - 10.5 mg/dL [facility] Est Glomerular Filtration Rate 53(L) >=60 mL/min/1. 73 m?? [facility] Comment: This patient? s estimated [...] In Lab Manuel Ricks MD CHEMISTRY ORDERABLES [facility] [place] [address] * Phosphorus (02/14/2022 8:55 AM EDT) Phosphorus 2.9 2.5 - 4.5 mg/dL [facility] Blood 02/14/2022 8:55 AM EDT 02/14/2022 9:03 AM EDT Narrative Resulting Agency Comment Spec In Lab Manuel Ricks MD CHEMISTRY ORDERABLES [facility] [place] [address] * Albumin Level (02/14/2022 8:55 AM EDT) Albumin 4.2 3.2 - 5.2 g/dL [facility] Blood 02/14/2022 8:55 AM EDT 02/14/2022 9:03 AM EDT Narrative Resulting Agency Comment Spec In Lab Manuel Ricks MD CHEMISTRY ORDERABLES Performing Organization Address City/[facility]/ZIP Co de Phone Number [facility] [place] [address] * PTH (02/14/2022 8:55 AM EDT) Parathyroid Hormone 63 15 - 65 pg/mL [facility] Blood 02/14/2022 8:55 AM EDT 02/14/2022 9:03 AM EDT Narrative Resulting Agency Comment Spec In Lab Manuel Ricks MD CHEMISTRY ORDERABLES Performing Organization Address [facility]/ZIP Co de Phone Number [facility] [place] [address] * Vitamin D, 25-Hydroxy (02/14/2022 8:55 AM EDT) Vitamin D Total 25 OH 84 21 - 100 ng/mL [facility] Vit D Interp Sufficient [facility] Blood 02/14/2022 8:55 AM EDT 02/14/2022 9:03 AM EDT Narrative Resulting Agency Comment Spec In Lab Manuel Ricks MD CHEMISTRY ORDERABLES [facility] [place] [address] * Magnesium (02/14/2022 8:55 AM EDT) Magnesium 0.94 0.69 - 1.07 mmol/L [facility] Blood 02/14/2022 8:55 AM EDT 02/14/2022 9:03 AM EDT Narrative Resulting Agency Comment Spec In Lab Manuel Ricks MD CHEMISTRY ORDERABLES [facility] [place] [address] documented in this encounter Visit Diagnoses Diagnosis Chronic kidney disease, unspecified CKD stage Vitamin D deficiency Unspecified vitamin D deficiency documented in this encounter Care Teams Ob/Gyn Nurse Relationship Specialty Start Date End Date Uyen Gerard MD [facility] [address] [place] [address] PCP - General 07/01/13 documented as of this encounter
--- OUTSIDE RECORDS SUMMARY | 2024-07-08 14:55 | XMS_ITS | Encounter Summary ---
Author Organization [facility] Address [facility] [place] [address] Care Team Providers Care Data Management Engineer Name Role Phone Uyen Gerard MD Primary Care Provider [phone] Reason for Visit * Reason Comments Follow-up Skin Check * Consultation (Routine) - Specialty Diagnoses / Procedures Referred By Conttaj t Referred To Contact Dermatology Diagnoses Nonscarring hair loss, unspecified Hair loss Procedures Consult Uyen Gerard MD [facility] [address] [address] Daniel Gupta MD [address] [facility], [place] [address] Referral ID Status Reason Start Date Expiration Date V isits Requested Visits Authorized [id number] 02/07/2019 02/07/2020 1 1 Encounter Details Date Type Department Care Team (Late st Contact Info) Description 04/29/2019 2:15 PM EDT Office Visit Dermatology at [place] [address] [place] [address] Daniel Gupta MD [address] [facility] M[facility] DERMATOLOGY [place], [place] [id number] History of telogen effluvium; AK (actinic keratosis); [...] as of this encounter Progress Notes * Daniel Gupta MD - 04/29/2019 2:15 PM [...] 1:30 PM EDT Office [place] [address] Carmelina Donaldson MD [facility] [place] [address] documented as of this encounter Visit Diagnoses Diagnosis History of telogen effluvium Personal history of other specified diseases AK (actinic keratosis) Actinic keratosis Seborrheic keratosis Other seborrheic keratosis documented in this encounter Care Teams Data Management Engineer Relationship Specialty Start Date End Date Uyen Gerard MD [facility] [address] [address] PCP - General 07/01/13 documented as of this encounter
--- OUTSIDE RECORDS SUMMARY | 2024-07-08 14:55 | XMS_ITS | Encounter Summary ---
Author Organization [facility] [place] [address] Care Team Providers Care Process Control Tech Name Role Phone Uyen Gerard MD Primary Care Provider [phone] Reason for Visit * Reason Comments Medication Refill Encounter Details Date Type Department Care Team (Late st Contact Info) Description 03/17/2022 Refill Neph[place] [address] Manuel Ricks MD [facility] [place] [address] Essential hypertension Social History Tobacco Use Types [...] 1:30 PM EDT Office [place] [address] Carmelina Donaldson MD [facility] [place] [address] documented as of this encounter Visit Diagnoses Diagnosis Essential hypertension Unspecified essential hypertension documented in this encounter Care Teams Process Control Tech Relationship Specialty Start Date End Date Uyen Gerard MD [facility] [address] [place] [address] PCP - General 07/01/13 documented as of this encounter
--- OUTSIDE RECORDS SUMMARY | 2024-07-08 14:55 | XMS_ITS | Encounter Summary ---
Author Organization [facility] [place] [facility] [place] [address] Care Team Providers Care Inventory Analyst Name Role Phone Uyen Zamora MD Primary Care Provider [phone] Encounter Details Date Type Department Care Team (Late st Contact Info) Description 01/07/2016 10:00 AM EDT Office Visit Nephrology [place] [address] [facility] [place] [address] [address] [facility] [place] [address] [facility] [place] [address] CKD (chronic kidney disease) stage 3, GFR [...] Tremaine Bustillos - 01/07/2016 9:38 AM EDT [facility] Nephrology/Hypertension Follow Up Jerri Velasco [id number] ID: [id number] y.o. female for CKD [...] Aileen Leblanc. MD [facility] Fellow Pager# [phone] [facility] [address] [place] [address] documented in this encounter Plan of Treatment Upcoming Encounters Date Type Department Care Team (Late st Contact Info) Description 01/18/2025 1:30 PM EDT Office Visit [place] [phone] Carmelina Donaldson MD [facility] [place] [address] documented as of this encounter Procedures Procedure [...] 9:30 AM EDT) Creatinine, Urine 31 mg/dL [facility] Albumin, Urine <3.0 mg/L [facility] Albumin / Creatinin Ratio, Urine <10 mcg/mg Cr [facility] Comment: Reference Range* Random collection (mcg/mg creatinine) Normal ?<30 Microalbuminuria ?? 30 - 300 Clinical Albuminuria ?? >300 *[place] [employer]. Diabetic Nephropathy. Diabetes Care 1997;(Suppl 1):S24-S27 Exercise within 24 hour, infection, fever, CHF, marked hyperglycemia, and marked hypertension may elevate urinary albumin excretion over baseline values. Urine specimen (specimen) 01/07/2016 9:30 AM EDT 01/07/2016 10:14 AM EDT Narrative Resulting Agency Comment Spec In Lab Jannie Oviedo MD URINE ORDERABLES Performing Organization Address City/[facility]/ZIP Co de Phone Number [facility] [place] [address] * Protein/Creatinine Ratio, urine (01/07/2016 9:30 AM EDT) Creatinine, Urine 33 mg/dL [facility] Protein, Urine <6 0 - 12 mg/dL [facility] Protein / Creatinine Ratio, Urine <0.2 ratio [facility] Urine specimen (specimen) 01/07/2016 9:30 AM EDT 01/07/2016 10:16 AM EDT Narrative Resulting Agency Comment Spec In Lab Jannie Oviedo MD URINE ORDERABLES Performing Organization Address City/[facility] Co de Phone Number [facility] [place] [address] documented in this encounter Visit Diagnoses Diagnosis CKD (chronic kidney disease) stage 3, GFR 30-59 ml/min Chronic kidney disease, Stage III (moderate) documented in this encounter Care Teams Inventory Analyst Relationship Specialty Start Date End Date Uyen Zamora MD [address] [place] [address] PCP - General 07/01/13 documented as of this encounter
--- OUTSIDE RECORDS SUMMARY | 2024-07-08 14:55 | XMS_ITS | Encounter Summary ---
Author Organization [facility] [place] [address] Care Team Providers Care Plate Glass Installer Name Role Phone Uyen Gerard MD Primary Care Provider [phone] Encounter Details Date Type Department Care Team (Late st Contact Info) Description 01/01/2021 Orders Only [place] [address] Geraldine Sky MD [facility] [place] [address] Bronchiectasis without complication (Primary Dx) Social History [...] 1:30 PM EDT Office Visit [place] [address] Carmelina Donaldson MD [facility] [place] [address] documented as of this encounter Visit Diagnoses Diagnosis Bronchiectasis without complication- Primary Bronchiectasis without acute exacerbation documented in this encounter Care Teams Plate Glass Installer Relationship Specialty Start Date End Date Uyen Gerard MD [address] [place] [address] PCP - General 07/01/13 documented as of this encounter
--- OUTSIDE RECORDS SUMMARY | 2024-07-08 14:55 | XMS_ITS | Encounter Summary ---
Author Organization [facility] [place] [address] Care Team Providers Care Property Officer Name Role Phone Uyen Gerard MD Primary Care Provider [phone] Reason for Visit * Reason Onset Date Comments Medication Refill 12/16/2021 Encounter Details Date Type Department Care Team (Late st Contact Info) Description 12/16/2021 Refill Nephrology [place] [address] Manuel Ricks MD [facility] [place] [address] Essential hypertension Social History Tobacco Use Types [...] 1:30 PM EDT Office [place] [address] Carmelina Donaldson MD [facility] [place] [address] documented as of this encounter Visit Diagnoses Diagnosis Essential hypertension Unspecified essential hypertension documented in this encounter Care Teams Property Officer Relationship Specialty Start Date End Date Uyen Gerard MD [address] [place], [place] [address] [place] [address] PCP - General 07/01/13 documented as of this encounter
--- OUTSIDE RECORDS SUMMARY | 2024-07-08 14:56 | XMS_ITS | Encounter Summary ---
Author Organization [facility] [place] [address] Care Team Providers Care Director Of Brand Marketing Name Role Phone Lisa Murdock MD Primary Care Provider Reason for Visit * Reason Comments Follow-up Encounter Details Date Type Department Care Team ([facility] Contact Info) Description 06/17/2012 11:30 AM EDT Office Visit Pulmonology at [address] [address] Ming Carter MD [facility] AT [address] [address] COPD (chronic obstructive pulmonary disease) (Primary Dx); [...] mouth 3 times daily as needed. ??? 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.Son-in-law neurologistDaughter Jayme RN administratorAs child exposed [...] 1:30 PM EDT [place] [address] Carmelina Donaldson MD [facility] [place] [address] documented as of this encounter Visit Diagnoses Diagnosis COPD (chronic obstructive pulmonary disease)- Primary Chronic airway obstruction, not elsewhere classified Flu vaccine need Need for prophylactic vaccination and inoculation against influenza Need for vaccination Need for prophylactic vaccination and inoculation against unspecified single disease documented in this encounter Care Teams Director Of Brand Marketing Relationship Specialty Start Date End Date Lisa Murdock MD PCP - General 04/24/11 03/10/13 documented as of this encounter
--- OUTSIDE RECORDS SUMMARY | 2024-07-08 14:56 | XMS_ITS | Referral Summary ---
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 current use of antiarrhythmic medical therapy 08/18/2021 Venous insufficiency 06/08/2020 Paroxysmal atrial fibrillation ([facility]) 019 Chronic obstructive pulmonary disease ([facility]) 08/08/2019 Essential hypertension 08/08/2019 Mixed hyperlipidemia 08/08/2019 Sleep apnea in adult 08/08/2019 Chronic renal insufficiency, stage III (moderate ) ([facility]) 08/08/2019 Social History Tobacco Use Types Packs/Day [...] Info) Description 02/07/2025 11:15 EDT Office Visit [facility] [address] [place] [address] Yazan Hawk MD [address] [facility] [place] [address] Care Teams Securities Clerk Relationship Specialty Start Date End Date Uyen Gerard MD [address] [place] [phone] PCP - General 02/18/18 Yazan Hawk MD [address] [place] [address] [address] [place] [phone] Cardiovascular Disease 08/12/21
--- OUTSIDE RECORDS SUMMARY | 2024-07-08 14:56 | XMS_ITS | Encounter Summary ---
Author Organization [facility] [place] [address] Care Team Providers Care Sales Service Representative Name Role Phone Michael Perez MD Primary Care Provider [phone] Encounter Details Date Type Department Care Team (Late st Contact Info) Description 04/24/2011 10:40 AM EDT Laboratory Appointment [address] [phone] Argenis Mack MD [address] [facility] GENERAL [place] [address] Discharge Disposition: Home Social History Tobacco Use [...] 1:30 PM EDT Office [place] [address] Carmelina Donaldson MD [facility] [place] [address] documented as of this encounter Visit Diagnoses Not on filedocumented in this encounter Care Teams Sales Service Representative Relationship Specialty Start Date End Date Michael Perez MD PCP - General 04/24/11 03/10/13 documented as of this encounter
--- OUTSIDE RECORDS SUMMARY | 2024-07-08 14:56 | XMS_ITS | Encounter Summary ---
Author Organization [facility] Address [address] [place] [address] Care Team Providers Care Intake Manager Name Role Phone Uyen Gerard MD Primary Care Provider [phone] Yazan Hawk MD Unavailable [phone] Reason for Visit * Reason Comments Cough cold symptoms,raisin g phlegm Encounter Details Date Type Department Care Team (Late st Contact Info) Description 02/09/2022 13:00 EDT Office Visit [facility] Acute Respiratory Clinic [address] [place], [place] [phone] Geraldine Welch PA-C [address] [facility] [address] [place], [place] [address] Cough in adult (Primary Dx) Social History [...] RN or in discussion with available provider (RETAIL SALES PROFESSIONAL's and CCA's can defer to Charge Nurse to complete triage when appropriate) PCP: Uyen Gerard * Geraldine Welch PA-C - 02/09/2022 1300 EDT [facility] Express Care Chief Complaint(s): Chief Complaint Patient presents with ??? Cough cold symptoms,raising phlegm Assessment & Plan: Jerri was seen today for cough. Diagnoses and all orders for this visit: Cough in adult - XR CHEST 2 VIEWS - COVID-19 TESTING - levalbuterol (XOPENEX) 0.63 mg/3 mL nebulization; 3 mL by nebulizer 3 times a day - COVID-19 [facility] (TESTING ONLY) Other orders - [...] below. Patient is advised in use of TrenDemon to access any lab results or other [...] Symptoms started on 02/04/2022 after going to voodoo 2 days prior. Patient is COVID vaccinated [...] note may be in part documented using [employer] dictation software. Please forgive any errors, omissions or typos that may result from use of dictation. documented in this encounter Plan of Treatment Upcoming Encounters Date Type Department Care Team (Late st Contact Info) Description 02/07/2025 11:15 EDT Office Visit [facility] Cardiology Clinic [address] [place] [address] Yazan Hawk MD [address] [facility] [address] [place] [address] documented as of this encounter Procedures Procedure Name Priority Date/Time Associated Diagnosis Comments [id number] [facility] (TESTING ONLY) Today 02/09/2022 16:03 EDT Cough in adult COVID-19 TESTING Routine 02/09/2022 16:0 3 EDT Cough in adult XR CHEST 2 VIEWS STAT 02/09/2022 15:0 9 EDT Cough in adult documented in this encounter Results * COVID-19 [facility] (TESTING ONLY) (02/09/2022 16:03 EDT) Swab ENTIRE NASOPHARYNX / Unknown Swab / Unknown 02/09/2022 16:03 EDT 02/09/2022 16:03 EDT Geraldine Welch PA-C MICROBIOLOGY - GENERAL ORDERABLES [facility] [address] [place] [address] * COVID-19 TESTING (02/09/2022 16:03 EDT) COVID-19 rt-PCR Result Negative Negative 02/09/2022 23:22 EDT [facility] Performing Lab Diasorin Liaison [facility] 02/09/2022 23:22 EDT [facility] Swab ENTIRE NASOPHARYNX / Unknown Swab / Unknown 02/09/2022 16:03 EDT 02/09/2022 16:03 EDT Geraldine Baird Rebekah MENJIVAR MICROBIOLOGY - GENERAL ORDERABLES [facility] [address] [place] [address] * XR CHEST 2 VIEWS (02/09/2022 15:09 EDT) Anatomical Region Laterality Modality Computed Radiogr aphy 02/09/2022 15:0 5 EDT Impressions 02/09/2022 15:51 EDT Findings suggestive of COPD, pleural thickening. No lobar consolidation or CHF. THIS DOCUMENT HAS BEEN ELECTRONICALLY SIGNED BY ELIZABETH HASTINGS MD FOR ANY QUESTIONS OR CONCERNS REGARDING THIS REPORT PLEASE CALL [facility] AT [phone] Narrative 02/09/2022 15:51 EDT PROCEDURE INFORMATION: Exam: [...] THIS DOCUMENT HAS BEEN ELECTRONICALLY SIGNED BY ELIZBAETH HASTINGS MD FOR ANY QUESTIONS OR CONCERNS REGARDING THIS REPORT PLEASE CALL [facility] [phone] Geraldine Welch PA-C [facility] DIAGNOSTIC IMAGING ORDERABLES [...] mouth. added in this encounter Care Teams Intake Manager Relationship Specialty Start Date End Date Uyen Gerard MD [address] [place] [phone] PCP - General 02/18/18 Yazan Hawk MD [address] [place] [address] [phone] Cardiovascular Disease 08/12/21 documented as of this encounter
--- OUTSIDE RECORDS SUMMARY | 2024-07-08 14:56 | XMS_ITS | Encounter Summary ---
Author Organization [facility] [place] [address] Care Team Providers Care Rod Pointer Name Role Phone Michael Perez MD Primary Care Provider Reason for Visit * Reason Onset Date Comments Medication Refill 04/05/2012 Encounter Details Date Type Department Care Team ([facility] Contact Info) Description 04/05/2012 Refill Pulmonology at [address] [address] Ming Carter MD [facility] AT [address] [address] Medication refill Social History Tobacco Use Types [...] list. *Please mail script to home address. [address] [place] [address] documented in this encounter Plan of Treatment Upcoming Encounters Date Type Department Care Team (Late st Contact Info) Description 01/18/2025 1:30 PM EDT Office [place] [address] Carmelina Donaldson MD [facility] [place] [address] documented as of this encounter Visit Diagnoses Diagnosis Medication refill Issue of repeat prescriptions documented in this encounter Care Teams Rod Pointer Relationship Specialty Start Date End Date Michael Perez MD PCP - General 04/24/11 03/10/13 documented as of this encounter
--- OUTSIDE RECORDS SUMMARY | 2024-07-08 14:56 | XMS_ITS | Encounter Summary ---
Author Organization [facility] Address [address] [place] [address] Care Team Providers Care Care Center Manager Name Role Phone Uyen Gerard MD Primary Care Provider [phone] Yazan Hawk MD Unavailable [phone] Reason for Visit * Reason Onset Date Comments Medication Management 02/09/2024 Encounter Details Date Type Department Care Team (Late st Contact Info) Description 02/09/2024 Telephone [facility] Cardiology Clinic [address] [place] [address] Yazan Hawk MD [address] [place] [address] [place] [address] Medication Management Social History Tobacco [...] Telephone Encounter - Matias, Zulma - 02/09/2024 7752 EDT Patient called regarding her Eliquis. She [...] on that. Prescription should be sent to [facility]. Patient's best call back number is RALPH Weston documented in this encounter Plan of Treatment Upcoming Encounters Date Type Department Care Team (Late st Contact Info) Description 02/07/2025 11:15 EDT Office Visit [facility] Cardiology Clinic [address] [place] [address] Yazan Hawk MD [address] [place] [phone] documented as of this encounter Visit Diagnoses Not on filedocumented in this encounter Care Teams Care Center Manager Relationship Specialty Start Date End Date Uyen Gerard MD [address] [place] [phone] PCP - General 02/18/18 Yazan Hawk MD [address] [place] [phone] Cardiovascular Disease 08/12/21 documented as of this encounter
--- OUTSIDE RECORDS SUMMARY | 2024-07-08 14:56 | XMS_ITS | Encounter Summary ---
Author Organization [facility] Address [address] [place] [address] Care Team Providers Care Bakery Products Checker Name Role Phone Uyen Gerard MD Primary Care Provider [phone] Yazan Hawk MD Unavailable [phone] Reason for Visit * Reason Comments Medications Refill Encounter Details Date Type Department Care Team (Late st Contact Info) Description 02/09/[address] [facility] Cardiology [facility] [address] [place], [place] [phone] Yazan Hawk MD [address] [facility] [address] [place] [address] Medications Refill Social History Tobacco [...] Info) Description 02/07/2025 11:[address] [facility] Cardiology Clinic [address] [place] [address] Yazan Hawk MD [address] [place] [phone] documented as of this encounter Visit Diagnoses Not on filedocumented in this encounter Discontinued Medications Medication Sig Discontinue Reason Start Date End Da te metoprolol SUCCinate (TOPROL-XL) 50 mg tablet CORRECTION: Take 1.5 tabs AM, 1 tab PM.. 02/14/2022 02/09/2023 documented as of this encounter Care Teams Bakery Products Checker Relationship Specialty Start Date End Date Uyen Gerard MD [address] [place] [phone] PCP - General 02/18/18 Yazan Hawk MD [address] [place] [phone] Cardiovascular Disease 08/12/21 documented as of this encounter
--- OUTSIDE RECORDS SUMMARY | 2024-07-08 14:56 | XMS_ITS | Encounter Summary ---
Author Organization [facility] Address [address] [place] [address] Care Team Providers Care Director Of Rooms Name Role Phone Uyen Gerard MD Primary Care Provider [phone] Reason for Visit * Reason Comments Follow-up Encounter Details Date Type Department Care Team (Late st Contact Info) Description 02/08/2021 10:00 EDT Office Visit [facility] [address] [place], [place] [id number] Yazan Hawk MD [address] [facility] [address] [place] [address] Paroxysmal atrial fibrillation (HCC-CMS) (Primary [...] Yazan Hawk MD - 02/08/2021 1000 EDT [facility] Note Subjective: Chief Complaint(s): Follow-up HPI: 86-year-old woman with paroxysmal atrial fibrillation, hypertension, hyperlipidemia, COPD, migraines, history of renal cancer status post right nephrectomy 2004. First episode of AF with RVR 08/2016, received ditiazem with spont. conversion to sinus rhythm during ER evaluation. Started on metoprolol and apixaban. Was hospitalized 11/2018 in [place], with fluttering in her chest and lightheadedness. [...] with worsening COPD, will be seen at [facility] for a second opinion soon. She denies recent chest pain, shortness of breath with ADLs, recent syncope, orthopnea, PND, edema,bleeding, digestive troubles. She has had hypertension since her 50s, she denies a history of [place], diabetes, TIA/CVA, cardiomyopathy, peripheral vascular disease, thyroid disease. Data review: Labs 02/15/2019: Creatinine 1.06, estimated GFR 50. Sleep study 12/2018, [facility]: Mild obstructive sleep apnea, not using CPAP. Event monitor ([employer] SEEQ) 10/07/16-11/08/16: Baseline sinus rhythm, daily heart rate average 70-90/min, heart rate spectrum 60-150/, 4 days with documented AF episodes, minutes to a few hours. Echocardiogram, [facility], 09/01/2016: Normal LV size and function, mild LVH, LVEF 65-70%, normal regional wall motion. MAC, moderate focal calcification of the posterior mitral leaflet, mild MR, mildly dilated LA, RV size upper normal limits, low normal RV systolic function, mildly dilated RA, moderateTR, mildly increased PA pressure, 42 mmHg, trivial pericardial effusion. Holter EKG, [facility], 06/2016: Sinus rhythm, rare single PAC, 3 bursts SVT, longest 9 beats, 172/min, no AF. Rare single PVC, no [place]. No bradycardia. No symptoms. Average 1 minute heart rate 88/min, -603/min. Chest x-ray, [facility], 08/31/2015: Heart at the upper limits of normal, lungs generally clear, except for some faint reticulonodular densities seen in the right midlung and apex laterally, consistent with radiodensities identified on CT. Chest CT, [facility], 08/30/2016: Market biconvex thoracolumbar scoliosis, scattered [...] 2 times daily. 180 Tab 1 ??? rkacmqjbjqm-svqvfbmpw-fkkaxunt (TRELEGY ELLIPTA) 100-62.5-25 mcg 1 puff inhaled [...] Medical History Paroxysmal atrial fibrillation, dx 08/2016, [id number] score =4, Started on Flecainide in [place], 11/2018 Cardiac cath, [place], [place] 11/2018: No significant coronary disease Hypertension Hyperlipidemia COPD/emphysema History of renal cancer, status post right nephrectomy 2005 Migraines Family History Mother: 94 yrs, atrial fibrillation Paternal Grand Mother: , angina, from [place] in her 70ies Father passed in 1984. [...] barriersto learning? No. 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 Allergies codeine: stomach upset: [...] Sinus rhythm with first-degree AV delay, 60/min, MD 226 ms, QRS 102 ms, QT 412 ms,incomplete right bundle branch block and L anterior fascicular block. EKG, 06/08/2020: Sinus rhythm with first-degree AV delay and PACs. 71/min, MD 232 ms, QRS 92 ms, QT 398 ms, QTC 432 ms, left anterior fascicular block. Assessment & Plan: 1. Paroxysmal atrial fibrillation (HCC-CMS) 2. Essential hypertension 3. Mixed hyperlipidemia 4. Chronic obstructive pulmonary disease, unspecified COPD type ([facility]) 86-year-old woman with paroxysmal atrial fibrillation, hypertension, hyperlipidemia, COPD, migraines, history of renal cancer status post right nephrectomy 2004. AF was diagnosed in 08/2016, terminated spontaneously. Her [id number]-CWCs score is 4, anticoagulation with apixaban/Eliquis is appropriate. Symptomatic recurrence of AF in [place] 11/2018. Cardiac cath was negative, started on [...] Info) Description 02/07/2025 11:15 EDT Office Visit [facility] [address] [place] [phone] Yazan Hawk MD [address] [facility] [address] [place] [address] documented as of this encounter Procedures Procedure Name Priority Date/Time Associated Diagnosis Comments EKG 12-LEAD 02/08/2021 10:49 EDT documented in this encounter Results * EKG 12-LEAD (02/08/2021 10:49 EDT) 02/08/2021 10:4 9 EDT Narrative [facility] - 02/08/2021 10:49 EDT ? [facility] ? Test Date: ?2021-02-08 10:49:17 Pat Name: ? TALITA LEODAN ?Department: ?Room: ? Gender: ? F ?Transitional Care Nurse: ?? KP : ?1935 ? Requested By: Order Number: ?Reading MD: ?? Ming Stellar, MD ? Measurements Intervals ?[place] ? Rate: ? 62 ? P: ?33 MD: ? 228 ?QRS: ?-43 QRSD: ? 86 [...] 02-08-2021 14:55:10 EDT by Ming Ellis MD [email or web address] Procedure Note Ming Ellis MD - 02/08/2021 [facility] Test Date: 2021-02-08 10:49:17 Pat Name: TALITA VELASCO Department: Room: Gender: Transitional Care Nurse: : 1935 Requested By: Order Number: Reading MD: Ming Ellis MD Measurements Intervals [place] Rate: 62 P: 33 MD: 228 QRS: -43 QRSD: 86 T: 2 QT: 416 QTc: 422 Interpretive Statements Sinus rhythm with 1st degree AV block Left axis deviation Abnormal ECG Compared to ECG 06/08/2020 10:28:42 Left-axis deviation now present Atrial premature complex(es) no longer present Ventricular premature complex(es) no longer present Left anterior fascicular block no longer present Electronically Signed On 02-08-2021 14:55:10 EDT by Ming Ellis MD [email or web address] Yazan Hawk MD CARDIAC ECG ORD ERABLES [facility] [address] [place] [address] documented in this encounter Visit Diagnoses Diagnosis Paroxysmal atrial fibrillation ([facility])- Primary Atrial fibrillation Essential hypertension Unspecified essential hypertension Mixed hyperlipidemia Chronic obstructive pulmonary disease, unspecified COPD type ([facility]) documented in this encounter Discontinued Medications Medication Sig Discontinue Reason Start Date End Da te metoprolol SUCCinate (TOPROL-XL) 50 mg tablet Take 1 Tab by mouth 2 times daily. Reorder 06/24/2020 02/08/2021 metoprolol SUCCinate (TOPROL-XL) 50 mg tablet Take 2 Tabs by mouth every morning AND 1 Tab every evening. 02/08/2021 02/08/2021 documented as of this encounter Care Teams Director Of Rooms Relationship Specialty Start Date End Date Uyen Gerard MD [address] [place] [phone] PCP - General 02/18/18 documented as of this encounter
--- OUTSIDE RECORDS SUMMARY | 2024-07-08 14:56 | XMS_ITS | Encounter Summary ---
Author Organization [facility] Address [address] [place] [address] Care Team Providers Care Constitutional Law Professor Name Role Phone Uyen Gerard MD Primary Care Provider [phone] Kristina Hawk MD Unavailable [phone] Reason for Referral * Cardiology (Routine/Next Available) - New Request Specialty Diagnoses / Procedures Referred By Contac t Referred To Contact Diagnoses Atrial fibrillation, unspecified type (HCC-CMS) Procedures EKG 12-LEAD Kristina Hawk MD [address] [place], [place] [address] [address] [place] [address] Referral ID Status Reason Start Date Expiration Date V isits Requested Visits Authorized [id number] New Request 01/26/2024 1 1 Reason for Visit * Reason Comments Atrial Fibrillation Hypertension Hyperlipidemia Chronic Obstructive Pulmonary Disease * Cardiology (Routine/Next Available) - New Request Specialty Diagnoses / Procedures Referred By Contac t Referred To Contact Diagnoses Atrial fibrillation, unspecified type (HCC-CMS) Procedures EKG 12-LEAD Kristina Hawk MD [address] [place], [place] [address] [address] [place] [address] Referral ID Status Reason Start Date Expiration Date V isits Requested Visits Authorized [id number] New Request 01/26/2024 1 1 Encounter Details Date Type Department Care Team (Latest Contact Info) Description 02/08/2024 11:15 EDT Office Visit [facility]iology Clinic [address] [place] [address] Kristina Hawk MD [address] [facility] [address] [place] [phone] Paroxysmal atrial fibrillation (HCC-CMS) (Primary Dx); Mixed hyperlipidemia; Venous insufficiency; termite control representative current use of antiarrhythmic medical therapy; Essential hypertension; Current use of fpc anticoagulation Social History Tobacco Use Types Packs/Day [...] Kristina Hawk MD - 02/08/2024 1115 EDT [facility] Cardiology Clinic Note Subjective: Chief Complaint(s): Atrial [...] metoprolol and apixaban. Was hospitalized 11/2018 in [place], with fluttering in her chest and lightheadedness. [...] her 50s, she denies a history of [place], diabetes, TIA/CVA, cardiomyopathy, peripheral vascular disease, thyroid disease. She gave up on her CPAP machine, as she did not find a way to make the system comfortable. Data review: Sleep study 12/2018, [facility]: Mild obstructive sleep apnea, not using CPAP. Event monitor ([employer] SEEQ) 10/07/16-11/08/16: Baseline sinus rhythm, daily heart rate average 70-90/min, heart rate spectrum 60-150/, 4 days with documented AF episodes, minutes to a few hours. Echocardiogram, [facility], 09/01/2016: Normal LV size and function, mild LVH, LVEF 65-70%, normal regional wall motion. MAC, moderate focal calcification of the posterior mitral leaflet, mild MR, mildly dilated LA, RV size upper normal limits, low normal RV systolic function, mildly dilated RA, moderateTR, mildly increased PA pressure, 42 mmHg, trivial pericardial effusion. Holter EKG, [facility], 06/2016: Sinus rhythm, rare single PAC, 3 bursts SVT, longest 9 beats, 172/min, no AF. Rare single PVC, no [place]. No bradycardia. No symptoms. Average 1 minute heart rate 88/min, -249/min. Chest x-ray, [facility], 08/31/2015: Heart at the upper limits of normal, lungs generally clear, except for some faint reticulonodular densities seen in the right midlung and apex laterally, consistent with radiodensities identified on CT. Chest CT, [facility], 08/30/2016: Market biconvex thoracolumbar scoliosis, scattered [...] TABLET TWICE A DAY 180 Tablet 3 nhuqdduetzx-brbkpbkna-inyaorho (TRELEGY ELLIPTA) 100-62.5-25 mcg 1 puff inhaled [...] Medical History Paroxysmal atrial fibrillation, dx 08/2016, [id number] score =4, Started on Flecainide in [place], 11/2018 Cardiac cath, [place], [place] 11/2018: No significant coronary disease Hypertension Hyperlipidemia COPD/emphysema History of renal cancer, status post right nephrectomy 2004 Migraines Family History Mother: 94 yrs, atrial fibrillation Paternal Grand Mother: , angina, from [place] in her 70ies Father passed in 1984. [...] learning? No. 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 Allergies codeine: stomach upset: Side Effects Review [...] Sinus rhythm with first-degree AV delay, 60/min, MT 226 ms, QRS 102 ms, QT 412 ms,incomplete right bundle branch block and L anterior fascicular block. EKG, 06/08/2020: Sinus rhythm with first-degree AV delay and PACs. 71/min, MT 232 ms, QRS 92 ms, QT 398 ms, QTC 432 ms, left anterior fascicular block. EKG 08/12/2021: Sinus bradycardia with sinus arrhythmia and first-degree AV delay, 59/min, MT 244 ms, QRS 88 ms, QT 404 ms, left anterior fascicular block. EKG 02/24/2022: Sinus rhythm with first-degree AV delay, 78/min, MT 248 ms, QRS 76 ms, QT 392 ms, QTC 446 ms, left anterior fascicular block. Labs, [facility], 02/14/2022: Glucose 94, BUN 29, creatinine 0.98, sodium 127, potassium 4.8, chloride 89,CO2 30, anion gap 8, calcium 9.6, GFR 53, urine sodium 41 EKG 01/29/2023: Sinus rhythm with first-degree AV block, 70/min, MT 258 ms, QRS 86 ms, QT 398 ms, QTc 429 ms, possible left atrial enlargement, left anterior fascicular block, nonspecific T wave abnormality. EKG 02/08/2024: Sinus rhythm with first-degree AV delay, 75 /min, QRS 88 ms,QT, 380ms, QTc 425 ms, left anterior fascicular block. Assessment & Plan: 1. Paroxysmal atrial fibrillation ([facility]) EKG 12-LEAD EKG 12-LEAD 2. Mixed hyperlipidemia 3. Venous insufficiency 4. 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 Essential hypertension 6. Current use of fpc anticoagulation 89 y.o. woman with paroxysmal atrial fibrillation, hypertension, hyperlipidemia, COPD, migraines, history of renal cancer status post right nephrectomy 2004. AF was diagnosed in 08/2016, terminated spontaneously. Her SPV3TH0-QWIy score is 4, anticoagulation with apixaban/Eliquis is appropriate. Symptomatic recurrence of AF in [place] 11/2018. Cardiac cath was negative, started on [...] MD * Natalie Weaver RN - 02/08/2024 0739 EDT Spoke with patient, she is aware of Dr Hawk's advice for repeat blood work ( non fasting). She requests to have them drawn at [facility] outpatient lab. Orders faxed to [facility] outpatient lab at [phone]. She is aware of need to call lab to schedule appt to have labs drawn [phone]. She verbalizes understanding and encouraged to call with any questions or concerns. documented in this encounter Plan of Treatment Upcoming Encounters Date Type Department Care Team (Late st Contact Info) Description 02/07/2025 11:15 EDT Office Visit [facility]iology Clinic [address] [place] [phone] Kristina Hawk MD [address] [place] [address] [address] [place] [address] Scheduled Orders Name Type Priority [...] EDT) 02/08/2024 12:0 4 EDT Scan 2 Insurance Operations Rep PROCEDURE/MINOR MARAH GICAL ORDERABLES * EKG 12-LEAD (02/08/2024 10:16 EDT) 02/08/2024 10:1 6 EDT [facility] - 02/08/2024 11:41 EDT ? CVC ? Test Date: ?2024-02-08 Pat Name: ? TALITA VELASCO ?Department: ? Room: ? Gender: ? Female ? Plaster Model And Mold Maker: ?? ST : ?1935 ? Requested By: HAWK KRISTINARACHNA SPRINGER Order Number: [id number] ? B[place] CAMARA: ?? AGAPITO XAVIER MD ? Measurements Intervals ?[place] ? Rate: ? 150 ?P: ?54 MT: ? 356 ?QRS: ?0 QRSD: ? 4 [...] Name: TALITA VELASCO Department: Room: Gender: Female Plaster Model And Mold Maker: : 1935 Requested By: ROSIBEL BUTLER Order Number: [id number] [place] MD: AGAPITO XAVIER MD Measurements Intervals [place] Rate: 150 P: 54 MT: 356 QRS: 0 QRSD: 4 T: 244 [...] Kristina Hawk MD CARDIAC ECG ORD ERABLES [facility] documented in this encounter Visit Diagnoses Diagnosis Paroxysmal atrial fibrillation ([facility])- Primary Atrial fibrillation Mixed hyperlipidemia Venous insufficiency Unspecified venous (peripheral) insufficiency termite control 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 added in this encounter Care Teams Constitutional Law Professor Relationship Specialty Start Date End Date Uyen Gerard MD [address] [place] [phone] PCP - General 02/18/18 Kristina Hawk MD [address] [place] [address]-[address] [place] [phone] Cardiovascular Disease 08/12/21 documented as of this encounter
--- OUTSIDE RECORDS SUMMARY | 2024-07-08 14:56 | XMS_ITS | Encounter Summary ---
Author Organization [facility] Address [address] [place] [address] Care Team Providers Care Animal Geneticist Name Role Phone Uyen Gerard MD Primary Care Provider [phone] Yazan Hawk MD Unavailable [phone] Reason for Visit * Reason Comments Other follow up Encounter Details Date Type Department Care Team (Latest Contact Info) Description 08/12/2021 10:00 EST Office Visit [facility] [address] [place] [address] Yazan Hawk MD [address] [facility] [address] [place] [address] Paroxysmal atrial fibrillation (HCC-CMS) (HCC) (Primary Dx); Essential hypertension; Sleep apnea in adult; Current use of rn long term care anticoagulation; 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 She gave up on her CPAP machine, as she did not find a way to make the system comfortable. She denies recent chest pain, shortness of breath with ADLs, recent syncope, orthopnea, PND, edema,bleeding. She has chronic constipation issues. She has had hypertension since her 50s, she denies ahistory of [place], diabetes, TIA/CVA, cardiomyopathy, peripheral vascular disease, thyroid disease. She and her recently received Covid booster and flu shots without problems. They are planning to travel to [place] in September and [facility] in December 2021. Data review: Labs 02/15/2019: Creatinine 1.06, estimated GFR 50. Sleep study 12/2018, [facility]: Mild obstructive sleep apnea, not using CPAP. Event monitor ([employer] SEEQ) 10/07/16-11/08/16: Baseline sinus rhythm, daily heart rate average 70-90/min, heart rate spectrum 60-150/, 4 days with documented AF episodes, minutes to a few hours. Echocardiogram, [facility], 09/01/2016: Normal LV size and function, mild LVH, LVEF 65-70%, normal regional wall motion. MAC, moderate focal calcification of the posterior mitral leaflet, mild MR, mildly dilated LA, RV size upper normal limits, low normal RV systolic function, mildly dilated RA, moderateTR, mildly increased PA pressure, 42 mmHg, trivial pericardial effusion. Holter EKG, [facility], 06/2016: Sinus rhythm, rare single PAC, 3 bursts SVT, longest 9 beats, 172/min, no AF. Rare single PVC, no [place]. No bradycardia. No symptoms. Average 1 minute heart rate 88/min, -177/min. Chest x-ray, [facility], 08/31/2015: Heart at the upper limits of normal, lungs generally clear, except for some faint reticulonodular densities seen in the right midlung and apex laterally, consistent with radiodensities identified on CT. Chest CT, [facility], 08/30/2016: Market biconvex thoracolumbar scoliosis, scattered multifocal [...] 2 times daily. 180 Tab 1 ??? jmwnnxgekju-btdzgwyrp-sfakwqax (TRELEGY ELLIPTA) 100-62.5-25 mcg 1 puff inhaled [...] Medical History Paroxysmal atrial fibrillation, dx 08/2016, [id number] score =4, [place] Flecainide in [place], 11/2018 Cardiac cath, [place], [place] 11/2018: No significant coronary disease Hypertension [...] learning? No. 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 Allergies codeine: stomach upset: Side Effects Review [...] sinus arrhythmia and first-degree AV delay, 59/min, RI 244 ms, QRS 88 ms, QT 404 ms, left anterior fascicular block. Assessment & Plan: 1. Paroxysmal atrial fibrillation (HCC-CMS) ([facility]) EKG 12-LEAD 2. Essential hypertension 3. Sleep apnea in adult 4. Current use of assisted anticoagulation 5. longterm current use of antiarrhythmic medical therapy 86-year-old woman with paroxysmal atrial fibrillation, hypertension, hyperlipidemia, COPD, migraines, history of renal cancer status post right nephrectomy 2004. AF was diagnosed in 08/2016, terminated spontaneously. Her [id number]-DFIr score is 4, anticoagulation with apixaban/Eliquis is [...] Info) Description 02/07/2025 11:15 EDT Office Visit [facility] Clinic [address] [place] [phone] Yazan Hawk MD [address] [place] [address]-A [address] [place] [address] documented as of this encounter Procedures Procedure Name Priority Date/Time Associated Diagnosis Comments ECG REPORT - SCANNED 08/12/2021 11:59 EST EKG 12-LEAD Routine 08/12/2021 10:11 EST Paroxysmal atrial fibrillation (HCC-CMS) (HCC) documented in this encounter Results * ECG REPORT - SCANNED (08/12/2021 11:59 EST) 08/12/2021 11:5 9 EST Scan 2 Product Representative PROCEDURE/MINOR MARAH GICAL ORDERABLES * EKG 12-LEAD (08/12/2021 10:11 EST) 08/12/2021 10:1 1 EST Narrative [facility] EPIPH08/12/2021 11:52 EST ? CVC ? Test Date: ?2021-08-12 Pat Name: ? TALITA VELASCO ?Department: ? Room: ? Gender: ? Female ? Lawyer: ?? KJW : ?1935 ? Requested By: ROSIBEL ACEVEDO RACHEAL Order Number: [id number] ? Reading MD: ?? JUAN ROBLES MD ? Measurements Intervals ?[place] ? Rate: ? 60 ? P: ?71 RI: ? 248 ?QRS: ?-47 QRSD: ? 80 [...] Name: TALITA VELASCO Department: Room: Gender: Female Lawyer: CORINA : 1935 Requested By: ROSIBEL BUTLER Order Number: [id number] Reading MD: JUAN ROBLES MD Measurements Intervals [place] Rate: 60 P: 71 RI: 248 QRS: -47 QRSD: 80 T: 44 [...] Yazan Hawk MD CARDIAC ECG ORD ERABLES [facility] documented in this encounter Visit Diagnoses Diagnosis Paroxysmal atrial fibrillation (HCC-CMS)- Primary Atrial fibrillation Essential hypertension Unspecified essential hypertension Sleep apnea in adult Current use of rn long term care anticoagulation Long-term (current) use of anticoagulants longterm current use of antiarrhythmic medical therapy documented in this encounter Care Teams Animal Geneticist Relationship Specialty Start Date End Date Uyen Gerard MD [address] [place] [phone] PCP - General 02/18/18 Yazan Hawk MD [address] [place] [address] [address] [place] [address] Cardiovascular Disease 08/12/21 documented as of this encounter
--- OUTSIDE RECORDS SUMMARY | 2024-07-08 14:56 | XMS_ITS | Encounter Summary ---
Author Organization [facility] Address [address] [place] [address] Care Team Providers Care Audio Visual Arts Director Name Role Phone Uyen Gerard MD Primary Care Provider [phone] Yazan Hawk MD Unavailable [phone] Reason for Visit * Reason Comments Other Encounter Details Date Type Department Care Team (Late st Contact Info) Description 02/14/2022 [facility] Cardiology Clinic [address] [place] [address] Yazan Hawk MD [address] [facility] [address] [place] [address] Other Social History Tobacco Use [...] Office Visit [facility] Cardiology Clinic [address] [place] [address] Yazan Hawk MD [address] [place] [phone] documented as of this encounter Visit Diagnoses Not on filedocumented in this encounter Discontinued Medications Medication Sig Discontinue Reason Start Date End Da te metoprolol SUCCinate (TOPROL-XL) 50 mg tablet Take 2 Tabs by mouth every morning AND 1 Tab every evening. CORRECTION: Take 1.5 tabs AM, 1 tab PM.. 02/08/2021 02/14/2022 documented as of this encounter Care Teams Audio Visual Arts Director Relationship Specialty Start Date End Date Uyen Gerard MD [address] [place] [phone] PCP - General 02/18/18 Yazan Hawk MD [address] [place] [address] [phone] Cardiovascular Disease 08/12/21 documented as of this encounter
--- OUTSIDE RECORDS SUMMARY | 2024-07-08 14:56 | XMS_ITS | Encounter Summary ---
Author Organization [facility] [place] [address] Care Team Providers Care Laundry Machine Operator Name Role Phone Uyen Gerard MD Primary Care Provider [phone] Reason for Visit * Reason Onset Date Comments Results 03/16/2013 Encounter Details Date Type Department Care Team ([facility] st Contact Info) Description 03/16/2013 Telephone Pulmonology at [address] [phone] Ming Carter MD [facility] AT [address] [address] Results Social History Tobacco Use Types Packs/Day [...] as outlined by Dr. Carter. Patient will customer support coordinator copy of reportin office on Thursday. * Telephone Encounter - Jennie Broussard RN - 03/16/2013 10:[address] Carter -- Patient requesting results review, labs available in [facility] from 03/11. Please advise, Thanks TEF. * Telephone Encounter - Claudia Liang - 03/16/2013 10:08 AM EDT WHICH RESULTS: labs WHERE WAS IT DONE : [facility] WHEN WAS IT DONE: 03/11 documented in this encounter Plan of Treatment Upcoming Encounters Date Type Department Care Team (Late st Contact Info) Description 01/18/2025 1:30 PM EDT Office [place] [address] Carmelina Donaldson MD [facility] [place] [address] documented as of this encounter Visit Diagnoses Not on filedocumented in this encounter Care Teams Laundry Machine Operator Relationship Specialty Start Date End Date Uyen Gerard MD [address] [place] [address] PCP - General 03/14/13 06/30/13 documented as of this encounter
--- OUTSIDE RECORDS SUMMARY | 2024-07-08 14:56 | XMS_ITS | Encounter Summary ---
Author Organization [facility] [place] [address] Care Team Providers Care Grain Oilseed Or Pasture Grower Name Role Phone Michael Perez MD Primary Care Provider Encounter Details Date Type Department Care Team (Late st Contact Info) Description 06/18/2012 11:15 AM EDT Office Visit Ultrasound at [address] [address] Social History Tobacco Use Types [...] 1:30 PM EDT Office [place] [address] [facility] PULMONARY [place] [address] documented as of this encounter Procedures Procedure [...] Status post right nephrectomy. Mirta Sorenson MD IMG US GEN ORDERABLE S documented in this encounter Visit Diagnoses Not on filedocumented in this encounter Care Teams Grain Oilseed Or Pasture Grower Relationship Specialty Start Date End Date Michael Perez MD PCP - General 04/24/11 03/10/13 documented as of this encounter
--- OUTSIDE RECORDS SUMMARY | 2024-07-08 14:56 | XMS_ITS | Encounter Summary ---
Author Organization [facility] Address [address] [place] [address] Care Team Providers Care Water And Fire Technician Name Role Phone Uyen Gerard MD Primary Care Provider [phone] Yazan Hawk MD Unavailable [phone] Encounter Details Date Type Department Care Team (Late st Contact Info) Description 06/11/2022 Lab Requisition [facility] Pathology & Laboratory Medicine - [facility] [address] [place] [address] Outr Resulting Lab, Provider Social History Tobacco [...] [facility] [address] [place], [place] [id number] Yazan Hawk MD [address] [facility] [address] [place] [address] documented as of this encounter [...] 10:30 EDT) Hold Hold 06/11/2022 22:31 EDT [facility] Blood VENOUS BLOOD / Unknown 06/11/2022 10:30 EDT 06/11/2022 21:22 EDT Provider Outr Resulting Lab LAB INFO SER VICE AND SUPPORT & PHONE RESULT Performing Organization Address City/State/[facility] Co de Phone Number [facility] [address] [place] [phone] * (ABNORMAL) SPEP, INCLUDES QUANTITATION OF MONOCLONAL SPIKE PERFORMABLE (06/11/2022 10:30 EDT) Albumin % 55.4(L) 55.8 - 66.1 % 06/12/2022 14:56 EDT [facility] Albumin g/dL 4.2 3.6 - 5.2 g/dL 06/12/2022 14:56 EDT [facility] Alpha-1 % 3.9 2.9 - 4.9 % 06/12/2022 14:56 [facility] Alpha-1 g/dL 0.30 0.15 - 0.40 g/dL 06/12/2022 14:56 [facility] Alpha-2 % 9.1 7.1 - 11.8 % 06/12/2022 14:56 [facility] Alpha-2 g/dL 0.70 0.50 - 1.00 g/dL 06/12/2022 14:56 [facility] Beta % 11.3 8.4 - 13.1 % 06/12/2022 14:56 [facility] Beta g/dL 0.80 0.60 - 1.20 g/dL 06/12/2022 14:56 [facility] Gamma % 20.3(H) 11.1 - 18.8 % 06/12/2022 14:56 [facility] Gamma g/dL 1.50 0.60 - 1.60 g/dL 06/12/2022 14:56 [facility] SPEP Comment No apparent monoclonal protein seen on serum electrophoresis 06/12/2022 14:56 [facility] Comment:See scanned/suppleme ntary report. Total Protein 7.5 6.3 - 8.2 g/dL 06/12/2022 14:56 [facility] Blood VENOUS BLOOD / Unknown 06/11/2022 10:30 EDT 06/11/2022 21:22 EDT Provider Outr Resulting Lab CHEMISTRY & BLOOD GAS ORDERABLES [facility] [address] [place] [address] * PROTEIN, TOTAL (06/11/2022 10:30 EDT) Blood VENOUS BLOOD / Unknown 06/11/2022 10:30 EDT 06/11/2022 21:22 EDT Provider Outr Resulting Lab CHEMISTRY & BLOOD GAS ORDERABLES [facility] [address] [place] [address] * (ABNORMAL) SERUM FREE LIGHT CHAINS (06/11/2022 10:30 EDT) Brady Free Lt Chain 2.35(H) 0.33 - 1.94 mg/dL 06/12/2022 9:14 EDT [facility] Lambda Free Lt Chain 2.88(H) 0.57 - 2.63 mg/dL 06/12/2022 9:14 EDT [facility] Brady/Lambda Ratio 0.82 0.26 - 1.65 06/12/2022 9:14 EDT [facility] Blood VENOUS BLOOD / Unknown 06/11/2022 10:30 EDT 06/11/2022 21:22 EDT Provider Outr Resulting Lab CHEMISTRY & BLOOD GAS ORDERABLES Performing Organization Address [facility] Co de Phone Number [facility] [address] [place] [address] documented in this encounter Visit Diagnoses Not on filedocumented in this encounter Care Teams Water And Fire Technician Relationship Specialty Start Date End Date Uyen Gerard MD [address] [place] [phone] PCP - General 02/18/18 Yazan Hawk MD [address] [place] [address]- [address] [place] [address] Cardiovascular Disease 08/12/21 documented as of this encounter
--- OUTSIDE RECORDS SUMMARY | 2024-07-08 14:56 | XMS_ITS | Encounter Summary ---
Author Organization [facility] Address [address] [place] [address] Care Team Providers Care Business Office Director Name Role Phone Uyen Gerard MD Primary Care Provider Yazan Hawk MD Unavailable Reason for Referral * Cardiology (Routine/Next Available) - New Request Specialty Diagnoses / Procedures Referred By Contac t Referred To Contact Diagnoses Paroxysmal atrial fibrillation ([facility]-CMS) Procedures EKG 12-LEAD [facility]azan Hawk MD [address] [facility] [address] [address] Referral ID Status Reason Start Date Expiration Date V isits Requested Visits Authorized [id number] New Request 01/20/2023 1 1 Reason for Visit * Reason Comments Atrial Fibrillation * Cardiology (Routine/Next Available) - New Request Specialty Diagnoses / Procedures [facility] Referred To Contact Diagnoses Paroxysmal atrial fibrillation ([facility]-CMS) Procedures EKG 12-LEAD Yazan Hawk MD [address] [facility] [address] [place] [address] Referral ID Status Reason Start Date Expiration Date V isits Requested Visits Authorized [id number] New Request 01/20/2023 1 1 Encounter Details Date Type Department Care Team (Latest Contact Info) Description 01/29/2023 15:00 EDT Office Visit [facility] [address] [place] [address] Yazan Hawk MD 130 [facility] [address] [place] [address] Paroxysmal atrial fibrillation (HCC-CMS) (Primary Dx); Essential hypertension; Mixed hyperlipidemia; 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 First episode of AF with RVR 08/2016, received ditiazem with spont. conversion to sinus rhythm during ER evaluation. Started on metoprolol and apixaban. Was hospitalized 11/2018 in [place], with fluttering in her chest and lightheadedness. [...] sleep apnea, not using CPAP. Event monitor ([employer]) 10/07/16-11/08/16: Baseline sinus rhythm, daily heart [...] symptoms. Average 1 minute heart rate 88/min, [id number]/min. Chest x-ray, [facility], 08/31/2015: Heart [...] TWICE A DAY 180 Tablet 3 ??? ndhcqpijdex-wmbtkhqus-grreyyjf (TRELEGY ELLIPTA) 100-62.5-25 mcg 1 puff inhaled [...] Medical History Paroxysmal atrial fibrillation, dx 08/2016, [id number] score =4, Started on Flecainide in [place], 11/2018 Cardiac cath, [place], [place] 11/2018: No significant coronary disease Hypertension [...] barriersto learning? No. 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 Allergies codeine: stomach upset: Side [...] Sinus rhythm with first-degree AV delay, 60/min, VA 226 ms, QRS 102 ms, QT 412 ms,incomplete right bundle branch block and L anterior fascicular block. EKG, 06/08/2020: Sinus rhythm with first-degree AV delay and PACs. 71/min, VA 232 ms, QRS 92 ms, QT 398 ms, QTC 432 ms, left anterior fascicular block. EKG 08/12/2021: Sinus bradycardia with sinus arrhythmia and first-degree AV delay, 59/min, VA 244 ms, QRS 88 ms, QT 404 ms, left anterior fascicular block. EKG 02/24/2022: Sinus rhythm with first-degree AV delay, 78/min, VA 248 ms, QRS 76 ms, QT 392 ms, QTC 446 ms, left anterior fascicular block. Labs, [facility], 02/14/2022: Glucose 94, BUN 29, creatinine 0.98, sodium 127, potassium 4.8, chloride 89,CO2 30, anion gap 8, calcium 9.6, GFR 53, urine sodium 41 EKG 01/29/2023: Sinus rhythm with first-degree AV block, 70/min, VA 258 ms, QRS 86 ms, QT 398 ms, QTc 429 ms, possible left atrial enlargement, left anterior fascicular block, nonspecific T wave abnormality. Assessment & Plan: 1. Paroxysmal atrial fibrillation (HCC-CMS) ([facility]) EKG 12-LEAD EKG 12-LEAD 2. Essential hypertension 3. Mixed hyperlipidemia 4. retirement current use of antiarrhythmic medical therapy 5. Current use of group home anticoagulation 88-year-old woman with paroxysmal atrial fibrillation, hypertension, hyperlipidemia, COPD, migraines, history of renal cancer status post right nephrectomy 2004. AF was diagnosed in 08/2016, terminated spontaneously. Her [id number] score is 4, anticoagulation with apixaban/Eliquis is appropriate. Symptomatic recurrence of AF in [place] 11/2018. Cardiac cath was negative, started on [...] Office Visit [facility] [address] [place] [address] Yazan Hawk MD [address] [place], [place] [address] [address] [place] [address] documented as of this encounter Procedures Procedure Name Priority Date/Time Associated Diagnosis Comments ECG REPORT - SCANNED 01/29/2023 16:06 EDT EKG 12-LEAD Routine 01/29/2023 15:04 EDT Paroxysmal atrial fibrillation (HCC-CMS) documented in this encounter Results * ECG REPORT - SCANNED (01/29/2023 16:06 EDT) 01/29/2023 16:0 6 EDT Scan 2 Machine Joint Cutter PROCEDURE/MINOR MARAH GICAL ORDERABLES * EKG 12-LEAD (01/29/2023 15:04 EDT) 01/29/2023 15:0 4 EDT Narrative [facility] - 01/29/2023 16:01 EDT ? CVC ? Test Date: ?2023-01-29 Pat Name: ? TALITA VELASCO ?Department: ? Room: ? Gender: ? Female ? Sales Administration Specialist: ?? ES : ?1935 ? Requested By: ROSIBEL SPRINGER Order Number: [id number] ? Reading MD: ?? AGAPITO XAVIER MD ? Measurements Intervals ?[place] ? Rate: ? 70 ? P: ?57 VA: ? 258 ?QRS: ?-46 QRSD: ? 86 ? T: ?42 QT: ? 398 ? QTc: ?429 ? Interpretive Statements Sinus rhythm with 1st degree AV block Left anterior fascicular block Compared to ECG 02/24/2022 09:18:42 No significant changes I reviewed the tracing and have either agreed or edited the findings in this report. Electronically Signed On 01-29-2023 16:01:10 EDT by AGAPITO XAIVER MD. Procedure Note Agapito Xavier MD - 01/29/2023 CVC Test Date: 2023-01-29 Pat Name: TALITA VELASCO Department: Room: Gender: Female Sales Administration Specialist: PEARL : 1935 Requested By: ROSIBEL BUTLER Order Number: [id number] [place] MD: AGAPITO XAVIER MD Measurements Intervals [place] Rate: 70 P: 57 VA: 258 QRS: -46 QRSD: 86 T: 42 QT: 398 QTc: 429 Interpretive Statements Sinus rhythm with 1st degree AV block Left anterior fascicular block Compared to ECG 02/24/2022 09:18:42 No significant changes I reviewed the tracing and have either agreed or edited the findings inthis report. Electronically Signed On 01-29-2023 16:01:10 EDT by AGAPITO EL. Yazan Hawk MD CARDIAC ECG ORD ERABLES [facility] documented in this encounter Visit Diagnoses Diagnosis Paroxysmal atrial fibrillation ([facility])- Primary Atrial fibrillation Essential hypertension Unspecified essential hypertension Mixed hyperlipidemia retirement current use of antiarrhythmic medical therapy Current use of group home anticoagulation Long-term (current) use of anticoagulants documented in this encounter Discontinued Medications Medication Sig Discontinue Reason Start Date End Da te predniSONE (DELTASONE) 20 mg tablet Take 2 Tablets by mouth daily. Therapy completed 02/09/2022 01/29/2023 documented as of this encounter Care Teams Business Office Director Relationship Specialty Start Date End Date Uyen Gerard MD [address] [place] [phone] PCP - General 02/18/18 Yazan Hawk MD [address] [place] [address] [address] [place] [phone] Cardiovascular Disease 08/12/21 documented as of this encounter
--- OUTSIDE RECORDS SUMMARY | 2024-07-08 14:56 | XMS_ITS | Encounter Summary ---
Author Organization [facility] [place] [address] Care Team Providers Care General Pediatrician Name Role Phone Michael Perez MD Primary Care Provider Encounter Details Date Type Department Care Team (Late st Contact Info) Description 04/25/2011 10:45 AM EDT Office Visit CAT Scan at [address] [address] Social History Tobacco Use Types [...] 1:30 PM EDT Office [place] [address] Carmelina Donaldson MD [facility] [place] [address] documented as of this encounter Procedures Procedure [...] pelvic CT scan. Bismark Marx M.D./[id number] Doc #:[id number] D: ??04/25/2011 T: ??04/25/2011 3:09 PM Narrative [...] pelvic CT scan. Bismark Marx M.D./[id number] Doc #:[id number] Mirta Sorenson MD IMG CT ORDERABLES documented in this encounter Visit Diagnoses Not on filedocumented in this encounter Care Teams General Pediatrician Relationship Specialty Start Date End Date Michael Perez MD PCP - General 04/24/11 03/10/13 documented as of this encounter
--- OUTSIDE RECORDS SUMMARY | 2024-07-08 14:56 | XMS_ITS | Encounter Summary ---
Author Organization [facility] Address [address] [place] [address] Care Team Providers Care Assistant Quality Manager Name Role Phone Uyen Gerard MD Primary Care Provider [phone] Kristina Hawk MD Unavailable Reason for Visit * Reason Comments Atrial Fibrillation * Cardiology (Routine/Next Available) - New Request Specialty Diagnoses / Procedures [facility] Referred To Contact Diagnoses PAF (paroxysmal atrial fibrillation) ([facility]) Procedures EKG 12-LEAD Kristina Hawk MD [address] [facility] [address] [place] [address] Referral ID Status Reason Start Date Expiration Date V isits Requested Visits Authorized [id number] New Request 02/21/2022 1 1 Encounter Details Date Type Department Care Team (Latest Contact Info) Description 02/24/2022 9:15 EDT Office Visit [facility] Clinic [address] [place] [address] Kristina Hawk MD [address] [facility] [place] [address] PAF (paroxysmal atrial fibrillation) ([facility]) ([facility]) (Primary Dx); Essential hypertension; Mixed hyperlipidemia; 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 They had traveled to [facility] and [place] with family in December 2021, which went very well from a physical standpoint She denies recent chest pain, shortness of breath with ADLs, recent syncope, orthopnea, PND, edema,bleeding. She has chronic constipation issues. She has had hypertension since her 50s, she denies ahistory of [place], diabetes, TIA/CVA, cardiomyopathy, peripheral vascular disease, thyroid disease. Shegave up on her CPAP machine, as she did not find a way to make the system comfortable. She and her recently received Covid booster and flu shots without problems. Data review: Labs 02/15/2019: Creatinine 1.06, estimated GFR 50. Sleep study 12/2018, [facility]: Mild obstructive sleep apnea, not using CPAP. Event monitor ([employer] [facility]) 10/07/16-11/08/16: Baseline sinus rhythm, daily heart rate average 70-90/min, heart rate spectrum 60-150/, 4 days with documented AF episodes, minutes to a few hours. Echocardiogram, [facility], 09/01/2016: Normal LV size and function, mild LVH, LVEF 65-70%, normal regional wall motion. MAC, moderate focal calcification of the posterior mitral leaflet, mild MR, mildly dilated LA, RV size upper normal limits, low normal RV systolic function, mildly dilated RA, moderateTR, mildly increased PA pressure, 42 mmHg, trivial pericardial effusion. Holter EKG, [facility], 06/2016: Sinus rhythm, rare single PAC, 3 bursts SVT, longest 9 beats, 172/min, no AF. Rare single PVC, no VT. No bradycardia. No symptoms. Average 1 minute heart rate 88/min, ufflr80-975/min. Chest x-ray, [facility], 08/31/2015: Heart at the upper limits of normal, lungs generally clear, except for some faint reticulonodular densities seen in the right midlung and apex laterally, consistent with radiodensities identified on CT. Chest CT, [facility], 08/30/2016: Market biconvex thoracolumbar [...] TWICE A DAY 180 Tablet 3 ??? oznlvuvtqdf-wxxzyjend-nbwuvtkp (TRELEGY ELLIPTA) 100-62.5-25 mcg 1 puff inhaled [...] Medical History Paroxysmal atrial fibrillation, dx 08/2016, [id number] score =4, Started on Flecainide in [place], 11/2018 Cardiac cath, [place], [place] 11/2018: No significant coronary disease Hypertension Hyperlipidemia COPD/emphysema History of renal cancer, status post right nephrectomy 2005 Migraines Family History Mother: 94 yrs, atrial fibrillation Paternal Grand Mother: , angina, from [place] in her 70ies Father passed in 1984. [...] learning? No. 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 Allergies codeine: stomach upset: Side Effects Review [...] Sinus rhythm with first-degree AV delay, 60/min, TN 226 ms, QRS 102 ms, QT 412 ms,incomplete right bundle branch block and L anterior fascicular block. EKG, 06/08/2020: Sinus rhythm with first-degree AV delay and PACs. 71/min, TN 232 ms, QRS 92 ms, QT 398 ms, QTC 432 ms, left anterior fascicular block. EKG 08/12/2021: Sinus bradycardia with sinus arrhythmia and first-degree AV delay, 59/min, TN 244 ms, QRS 88 ms, QT 404 ms, left anterior fascicular block. EKG 02/24/2022: Sinus rhythm with first-degree AV delay, 78/min, TN 248 ms, QRS 76 ms, QT 392 ms, QTC 446 ms, left anterior fascicular block. Recent labs, [facility], 02/14/2022: Glucose 94, BUN 29, creatinine 0.98, sodium 127, potassium 4.8, chloride 89, CO2 30, anion gap 8, calcium 9.6, GFR 53, urine sodium 41 Assessment & Plan: 1. PAF (paroxysmal atrial fibrillation) ([facility]) ([facility]) EKG 12-LEAD 2. Essential hypertension 3. Mixed hyperlipidemia 4. halfway current use of antiarrhythmic medical therapy 5. Current use of prison anticoagulation 6. Sleep apnea in adult 86-year-old woman with paroxysmal atrial fibrillation, hypertension, hyperlipidemia, COPD, migraines, history of renal cancer status post right nephrectomy 2004. AF was diagnosed in 08/2016, terminated spontaneously. Her [id number] score is 4, anticoagulation with apixaban/Eliquis is [...] Info) Description 02/07/2025 11:15 EDT Office Visit [facility] [address] [place] [address] Kristina Hawk MD [address] [place] [address] [place] [phone] documented as of this encounter Procedures Procedure Name Priority Date/Time Associated Diagnosis Comments ECG REPORT - SCANNED 02/24/2022 11:27 EDT EKG 12-LEAD Routine 02/24/2022 9:18 EDT PAF (paroxysmal atrial fibrillation) ([facility]) ([facility]) documented in this encounter Results * ECG REPORT - SCANNED (02/24/2022 11:27 EDT) 02/24/2022 11:2 7 EDT Scan 2 Rn Birthing PROCEDURE/MINOR MARAH GICAL ORDERABLES * EKG 12-LEAD (02/24/2022 9:18 EDT) 02/24/2022 9:18 EDT Narrative [facility] - 02/24/2022 11:24 EDT ? CVC ? Test Date: ?2022-02-24 Pat Name: ? TALITA VELASCO ?Department: ? Room: ? Gender: ? Female ? Light Oil Operator: ?? [place] : ?1935 ? Requested By: ROSIBEL KRISTINA RACHEAL Order Number: [id number] ? Reading MD: ?? AGAPITO XAVIER MD ? Measurements Intervals ?Lyndon ? Rate: ? 78 ? P: ? TN: ? 248 ?QRS: ?-44 QRSD: ? 76 [...] Name: TALITA VELASCO Department: Room: Gender: Female Light Oil Operator: [place] : 1935 Requested By: ROSIBEL BUTLER Order Number: [id number] Reading MD: AGAPITO XAVIER MD Measurements Intervals Lyndon Rate: 78 P: TN: 248 QRS: -44 QRSD: 76 T: 32 QT: 392 QTc: 446 Interpretive Statements Sinusrhythm 1st degree AV block Left anterior fascicular block Compared to ECG 08/12/2021 10:11:02 No significant changes I reviewed the tracing and have either agreed or edited the findings inthis report. Electronically Signed On 02-24-2022 11:24:49 EDT by AGAPITO EL. Kristina Hawk MD CARDIAC ECG ORD ERABLES [facility] documented in this encounter Visit Diagnoses Diagnosis PAF (paroxysmal atrial fibrillation) ([facility])- Primary Atrial fibrillation Essential hypertension Unspecified essential hypertension Mixed hyperlipidemia halfway current use of antiarrhythmic medical therapy Current use of prison anticoagulation Long-term (current) use of anticoagulants Sleep apnea in adult documented in this encounter Care Teams Assistant Quality Manager Relationship Specialty Start Date End Date Uyen Gerard MD [address] [place] [phone] PCP - General 02/18/18 Kristina Hawk MD [address] [place] [address] [address] [place] [phone] Cardiovascular Disease 08/12/21 documented as of this encounter
--- OUTSIDE RECORDS SUMMARY | 2024-07-08 14:56 | XMS_ITS | Encounter Summary ---
Author Organization [facility] [place] [address] Care Team Providers Care Supervisor Blast Furnace Auxiliaries Name Role Phone Michael Perez MD Primary Care Provider Encounter Details Date Type Department Care Team (Late st Contact Info) Description 06/02/2011 Abstract Pulmonology at [address] [phone] Ming Carter MD [facility] [address] [address] Social History Tobacco Use Types Packs/Day Years [...] 1:30 PM EDT Office [place] [address] Carmelina Donaldson MD [facility] [place] [address] documented as of this encounter Visit Diagnoses Not on filedocumented in this encounter Care Teams Supervisor Blast Furnace Auxiliaries Relationship Specialty Start Date End Date Michael Perez MD PCP - General 04/24/11 03/10/13 documented as of this encounter
--- OUTSIDE RECORDS SUMMARY | 2024-07-08 14:56 | XMS_ITS | Encounter Summary ---
Author Organization [facility] [place] [address] Care Team Providers Care Safety Professional Name Role Phone Uyen Gerard MD Primary Care Provider [phone] Reason for Visit * Reason Onset Date Comments Other 01/02/2014 Appointment Encounter Details Date Type Department Care Team ([facility] Contact Info) Description 01/02/2014 Telephone Pulmonology at [address] [address] Ming Carter MD [facility] AT [address] [address] Other (Appointment) Social History Tobacco Use Types [...] EDT Patient calling today to book an [place], follow up appointment. documented in this encounter Plan of Treatment Upcoming Encounters Date Type Department Care Team (Late st Contact Info) Description 01/18/2025 1:30 PM EDT Office [place] [address] Carmelina Donaldson MD [facility] [place] [address] documented as of this encounter Visit Diagnoses Not on filedocumented in this encounter Care Teams Safety Professional Relationship Specialty Start Date End Date Uyen Gerard MD [address] [facility] [address] [place] [address] PCP - General 07/01/13 documented as of this encounter
--- OUTSIDE RECORDS SUMMARY | 2024-07-08 14:56 | XMS_ITS | Encounter Summary ---
Author Organization [facility] [place] [address] Care Team Providers Care Dry Wall Sprayer Name Role Phone Uyen Gerard MD Primary Care Provider [phone] Encounter Details Date Type Department Care Team (Late st Contact Info) Description 07/01/2013 11:30 AM EDT Office Visit CAT Scan at [address] [address] Social History Tobacco Use Types [...] 1:30 PM EDT Office Visit Pulmonology at [facility] [place] [place] [address] Carmelina Donaldson MD [facility] [place] [address] documented as of this encounter Procedures Procedure [...] on filedocumented in this encounter Care Teams Dry Wall Sprayer Relationship Specialty Start Date End Date Uyen Gerard MD [address] [place] [address] PCP - General 07/01/13 documented as of this encounter
--- OUTSIDE RECORDS SUMMARY | 2024-07-08 14:56 | XMS_ITS | Encounter Summary ---
Author Organization [facility] Address [address] [place] [address] Care Team Providers Care Riprap Placer Name Role Phone Uyen Gerard MD Primary Care Provider [phone] Yazan Hawk MD Unavailable [phone] Reason for Visit * Reason Comments Medications Refill Encounter Details Date Type Department Care Team (Late st Contact Info) Description 03/12/2024 Refill [facility] Cardiology Clinic [address] [place], [place] [phone] Yazan Hawk MD [address] [facility] [address] [place] [address] Medications Refill Social History Tobacco [...] Info) Description 02/07/2025 11:15 EDT Office Visit [facility] Cardiology Clinic [address] [place] [address] Yazan Hawk MD [address] [place] [address] documented as of this encounter Visit Diagnoses Not on filedocumented in this encounter Discontinued Medications Medication Sig Discontinue Reason Start Date End Da te metoprolol SUCCinate (TOPROL-XL) 50 mg tablet TAKE ONE AND ONE-HALF TABLETS IN THE MORNING AND 1 TABLET IN THE EVENING 02/09/2023 03/14/2024 documented as of this encounter Care Teams Riprap Placer Relationship Specialty Start Date End Date Uyen Gerard MD [address] [place] [phone] PCP - General 02/18/18 Yazan Hawk MD [address] [place] [phone] Cardiovascular Disease 08/12/21 documented as of this encounter
--- OUTSIDE RECORDS SUMMARY | 2024-07-08 14:56 | XMS_ITS | Encounter Summary ---
Author Organization [facility] Address [address] [place] [address] Care Team Providers Care Vmware Engineer Name Role Phone Uyen Gerard MD Primary Care Provider [phone] Yazan Hawk MD Unavailable [phone] Encounter Details Date Type Department Care Team (Late st Contact Info) Description 06/11/2022 Lab Requisition [facility] Pathology & Laboratory Medicine - [facility] [address] [place] [address] Outr Resulting Lab, Provider Social History Tobacco [...] [facility] [address] [place], [place] [address] Yazan Hawk MD [address] [facility] [address] [place] [address] documented as of this encounter [...] % 18.4 N/A % 06/12/20 22 14:47 [facility] Albumin, Urine mg/dL 2 mg/dL 06/12/2022 14:47 [facility] Globulins, Urine % 81.6 N/A % 06/12/2022 14:47 [facility] Globulins, Urine mg/dL 7 mg/dL 06/12/2022 14:47 [facility] UPEP Comment See Comment 06/12/2022 14:47 [facility] Comment:Electrophoresis scre ening performed; Immunotyping to follow. See scanned/supplementary report. Immunotyping, Urine Current Interpretatio n: Negative for free monoclonal light chains. Reviewed by: Aristides Ariza MD, PhD 06/12/2022 14:08. 06/12/2022 14:47 [facility] Total Protein, Urine 9 See Note mg/dL 06/12/2022 14:47 [facility] Comment: NOTE: Reference range has not been established for total protein concentration in random urine specimens. Urine URINE SPECIMEN COLLECTION, CLEAN CATCH / Unknown 06/11/2022 10:30 EDT 06/11/2022 21:22 EDT Provider Outr Resulting Lab URINALYSIS O RDERABLES Performing Organization Address [facility] Co de Phone Number [facility] [address] [place] [address] * PROTEIN, TOTAL, RANDOM, URINE (06/11/2022 10:30 EDT) Urine URINE SPECIMEN COLLECTION, CLEAN CATCH / Unknown 06/11/2022 10:30 EDT 06/11/2022 21:22 EDT Provider Outr Resulting Lab URINALYSIS O RDERABLES Performing Organization Address [facility] Co de Phone Number [facility] [address] [place] [address] documented in this encounter Visit Diagnoses Not on filedocumented in this encounter Care Teams Vmware Engineer Relationship Specialty Start Date End Date Uyen Gerard MD [address] [place] [phone] PCP - General 02/18/18 Yazan Hawk MD [address] [place] [address] [address] Cardiovascular Disease 08/12/21 documented as of this encounter
--- OUTSIDE RECORDS SUMMARY | 2024-07-08 14:56 | XMS_ITS | Encounter Summary ---
Author Organization [facility] Address [address] [place] [address] Care Team Providers Care Retarder Operator Name Role Phone Uyen Gerard MD Primary Care Provider [phone] Yazan Hawk MD Unavailable [phone] Reason for Visit * Reason Comments Medications Refill Encounter Details Date Type Department Care Team (Late st Contact Info) Description 09/22/2022 Refill [facility] Cardiology Clinic [address] [place], [place] [phone] Yazan Hawk MD [address] [facility] [address] [place] [address] Medications Refill Social History Tobacco [...] Info) Description 02/07/2025 11:15 EDT Office Visit [facility] Cardiology Clinic [address] [place] [address] Yazan Hawk MD [address] [place] [address] documented as of this encounter Visit Diagnoses Not on filedocumented in this encounter Discontinued Medications Medication Sig Discontinue Reason Start Date End Da te flecainide (TAMBOCOR) 50 mg tablet TAKE 1 TABLET TWICE A DAY 09/27/2021 09/23/2022 documented as of this encounter Care Teams Retarder Operator Relationship Specialty Start Date End Date Uyen Gerard MD [address] [place] [phone] PCP - General 02/18/18 Yazan Hawk MD [address] [place] [phone] Cardiovascular Disease 08/12/21 documented as of this encounter
--- OUTSIDE RECORDS SUMMARY | 2024-07-08 14:56 | XMS_ITS | Clinical Summary ---
Author Organization 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 of antiarrhythmic medical therapy 08/18/2021 Venous insufficiency 06/08/2020 Paroxysmal atrial fibrillation ([facility]) 019 Chronic obstructive pulmonary disease ([facility]) 08/08/2019 Essential hypertension 08/08/2019 Mixed hyperlipidemia 08/08/2019 Sleep apnea in adult 08/08/2019 Chronic renal insufficiency, stage III (moderate ) ([facility]) 08/08/2019 Social History Tobacco Use Types Packs/Day [...] EDT Office Visit [facility] Cardiology Clinic [address] [place] [address] Yazan Hawk MD [address] [facility] [address] [place] [address] Health Maintenance Due Date Last Done Comments Copd Action Plan 1935 Lung Function Test (Spirometry) 1935 RSV Immunization ( o r 60+ Years) (1 - 1-dose 60+ series) 1997 COVID-19 Vaccine (2022-2 4 season) 2023 Fall Risk Screening 02/07/2025 02/08/2024, 01/29/2023, 02/24/2022, Additional history exists Care Teams Information Technology Data Analyst Relationship Specialty Start Date End Date Uyen Gerard MD [address] [place] [phone] PCP - General 02/18/18 Yazan Hawk MD [address] [place] [address] [address] [place] [phone] Cardiovascular Disease 08/12/21
--- OUTSIDE RECORDS SUMMARY | 2024-07-08 14:56 | XMS_ITS | Encounter Summary ---
Author Organization [facility] Address [facility] [place] [address] Care Team Providers Care Electrical Electronics Engineer Name Role Phone Michael Perez MD Primary Care Provider Encounter Details Date Type Department Care Team (Latest Contact Info) Description 03/11/2013 4:07 PM EDT - 03/11/2013 11:59 PM EDT Hospital [place] [address] Ming Carter MD [facility] [address] [address] Peripheral edema; COPD (chronic obstructive pulmonary disease) [...] mouth 3 times daily as needed. 03/02/2015 jswmdnpxat-hyqbhwa-any feine (FIORINAL) 50-325-40 mg per tablet Take 1 tablet by mouth every 4 hours as needed. 03/02/2015 Cod Liver Oil Cap 01/02/2009 05/08/2021 documented as of this encounter Plan of Treatment Upcoming Encounters Date Type Department Care Team (Late st Contact Info) Description 01/18/2025 1:30 PM EDT Office [place] [address] Carmelina Donaldson MD [facility] [place] [address] documented as of this encounter Procedures Procedure Name Priority Date/Time Associated Diagnosis Comments BASIC METABOLIC PANEL Routine 03/11/2013 11:15 AM EDT Peripheral edema COPD (chronic obstructive pulmonary disease) documented in this encounter Results * (ABNORMAL) Basic Metabolic Panel (non-fasting) (03/11/2013 11:15 AM EDT) [facility] Glucose 83 60 - 199 mg/dL [facility]ERNER MILLENNIUM Comment:Diabetes: >=200 mg/d L plus symptoms Blood Urea Nitrogen 19(H) 8 - 18 mg/dL [facility] MILLENNIUM Creatinine 1.07 0.70 - 1.20 mg/dL [facility] MILLENNIUM Comment: Please note that the pediatric reference intervals supplied above were not validated at [facility]. Results from pediatric patients should be interpreted [...] classified documented in this encounter Care Teams Electrical Electronics Engineer Relationship Specialty Start Date End Date Michael Perez MD PCP - General 03/11/13 03/13/13 documented as of this encounter
--- OUTSIDE RECORDS SUMMARY | 2024-07-08 14:56 | XMS_ITS | Encounter Summary ---
Author Organization [facility] [place] [address] Care Team Providers Care Train Conductor Name Role Phone Michael Perez MD Primary Care Provider Reason for Visit * Reason Comments COPD Follow-up Encounter Details Date Type Department Care Team ([facility] Contact Info) Description 09/15/2011 10:50 AM EST Office Visit Pulmonology at [address] [address] Ming Carter MD [facility] AT [address] (Primary Dx); COPD (chronic [...] mouth 3 times daily as needed. ??? 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 This also showed a [...] which is approximately 8000 feet in the [facility]. Her oxygen saturation today is fine in [...] at this time. CC: MD Dr [place] documented in this encounter Plan of Treatment Upcoming Encounters Date Type Department Care Team (Late st Contact Info) Description 01/18/2025 1:30 PM EDT [place] [address] Carmelina Donaldson MD [facility] [place] [address] documented as of this encounter Visit Diagnoses Diagnosis Abnormal chest CT- Primary Nonspecific (abnormal) findings on radiological and other examination of other intrathoracic organs COPD (chronic obstructive pulmonary disease) Chronic airway obstruction, not elsewhere classified documented in this encounter Care Teams Train Conductor Relationship Specialty Start Date End Date Michael Perez MD PCP - General 04/24/11 03/10/13 documented as of this encounter
--- OUTSIDE RECORDS SUMMARY | 2024-07-08 14:56 | XMS_ITS | Encounter Summary ---
Author Organization [facility] Address [address] [place] [address] Care Team Providers Care Hand Tufter Name Role Phone Uyen Gerard MD Primary Care Provider [phone] Yazan Hawk MD Unavailable [phone] Reason for Visit * Reason Comments Medications Refill Encounter Details Date Type Department Care Team (Late st Contact Info) Description 09/17/2023 Refill [facility] [address] [place], [place] [phone] Yazan Hawk MD [address] [facility] [address] [place] [address] Medications Refill Social History Tobacco [...] Info) Description 02/07/2025 11:15 EDT Office Visit [facility] [address] [place] [phone] Yazan Hawk MD [address] [place] [phone] documented as of this encounter Visit Diagnoses Not on filedocumented in this encounter Discontinued Medications Medication Sig Discontinue Reason Start Date End Da te flecainide (TAMBOCOR) 50 mg tablet TAKE 1 TABLET TWICE A DAY 09/23/2022 09/17/2023 documented as of this encounter Care Teams Hand Tufter Relationship Specialty Start Date End Date Uyen Gerard MD [address] [place] [phone] PCP - General 02/18/18 Yazan Hawk MD [address] [place] [phone] Cardiovascular Disease 08/12/21 documented as of this encounter
--- OUTSIDE RECORDS SUMMARY | 2024-07-08 14:56 | XMS_ITS | Encounter Summary ---
Author Organization [facility] [address] Care Team Providers Care Deputy Coroner Name Role Phone Michael Perez MD Primary Care Provider Reason for Visit * Reason Comments COPD Encounter Details Date Type Department Care Team ([facility] st Contact Info) Description 03/11/2013 10:00 AM EDT Office Visit Pulmonology at [address] [address] Ming Carter MD [facility] [address] [address] COPD (chronic obstructive pulmonary disease) (Primary Dx); [...] questions or symptoms, please call my office [phone]. documented in this encounter Progress Notes * [...] in the form of gardening. [facility]CP recently in [facility]. Making plans to go to [place]. Sleep has not [...] mouth 3 times daily as needed. ??? pbcyxixssy-ryishro-hawiqzyu (FIORINAL) 50-325-40 mg per tablet Take 1 [...] None Social History Narrative Grew up in [place] after world war 2, left in 1959First worked in [employer] until 1999Had asbestos on pipes in the office in which she worked.Pt lives with her in a home. 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 2. Edema. In light of [...] questions or symptoms, please call my office [phone]. CC: Uyen Gerard MD [place], [place] documented in this encounter Plan of Treatment Upcoming Encounters Date Type Department Care Team (Late st Contact Info) Description 01/18/2025 1:30 PM EDT [place] [address] Carmelina Donaldson MD [facility] DR PULMONARY MEDIC[place] [address] documented as of this encounter Results * (ABNORMAL) Basic Metabolic Panel (non-fasting) (03/11/2013 11:15 AM EDT) Glucose 83 60 - 199 mg/dL CERNER MILLENNIUM Comment:Diabetes: >=200 mg/d L plus symptoms Blood Urea Nitrogen 19(H) 8 - 18 mg/dL CERNER MILLENNIUM Creatinine 1.07 0.70 - 1.20 mg/dL CERNER MILLENNIUM Comment: Please note that the pediatric reference intervals supplied above were not validated at [facility]. Results from pediatric patients should be interpreted [...] Ming Carter MD CHEMISTRY ORDERABLE S [facility] documented in this encounter Visit Diagnoses Diagnosis COPD (chronic obstructive pulmonary disease)- Primary Chronic airway obstruction, not elsewhere classified Peripheral edema Edema documented in this encounter Care Teams Deputy Coroner Relationship Specialty Start Date End Date Michael Perez MD PCP - General 03/11/13 03/13/13 documented as of this encounter
--- OUTSIDE RECORDS SUMMARY | 2024-07-08 14:56 | XMS_ITS | Encounter Summary ---
Author Organization [facility] [place] [address] Care Team Providers Care Finance Intern Name Role Phone Michael Perez MD Primary Care Provider Encounter Details Date Type Department Care Team (Late st Contact Info) Description 04/24/2011 10:30 AM EDT Laboratory Appointment [address] [phone] CLINIC[facility] [address] [place] [address] Discharge Disposition: Home Social History Tobacco Use [...] 1:30 PM EDT Office [place] [address] Carmelina Donaldson MD [facility] [place] [address] documented as of this encounter Procedures Procedure [...] PM EDT Brennan Paz MD CHEMISTRY ORDERABLES [facility] MILLENNIUM * (ABNORMAL) COMPREHENSIVE METABOLIC PANEL (NON-FASTING) [...] PM EDT Brennan Paz MD CHEMISTRY ORDERABLES LANIE HARRELL * REFLEX LAB-A-DIFF (04/24/2011 10:24 AM EDT) [...] Brennan Paz MD HEMATOLOGY ORDERABLE S CERNER MILLENNIUM * CBC (WITH DIFF) (04/24/2011 10:24 AM [...] Standard Deviation 41.4 35.0 - 46.0 fL [facility] MILLENNIUM RDW coefficient of variation 13.3 10.9 - 14.4 % CERNER MILLENNIUM Mean Platelet Volume 10.5 9.0 - 12.0 fL CERNER MILLENNIUM Blood specimen (specimen) 04/24/2011 10:24 AM EDT 04/24/2011 12:06 PM EDT Brennan Paz MD HEMATOLOGY ORDERABLE S Performing Organization Address City/[facility] de Phone Number [facility] * SEDIMENTATION RATE (04/24/2011 10:24 AM EDT) Sedimentation Rate Automated 16 0 - 20 mm/hr LANIE ROPERENNIUM Blood specimen (specimen) 04/24/2011 10:24 AM EDT 04/24/2011 10:57 AM EDT Brennan Paz MD HEMATOLOGY ORDERABLE S Performing Organization Address [facility] de Phone Number [facility] documented in this encounter Visit Diagnoses Not on filedocumented in this encounter Care Teams Finance Intern Relationship Specialty Start Date End Date Michael Perez MD PCP - General 04/24/11 03/10/13 documented as of this encounter
--- OUTSIDE RECORDS SUMMARY | 2024-07-08 14:56 | XMS_ITS | Encounter Summary ---
Author Organization [facility] Address [facility] [place] [address] Care Team Providers Care Stud Beef Cattle Farmer Name Role Phone Uyen Zamora MD Primary Care Provider [phone] Reason for Visit * Reason Comments COPD Encounter Details Date Type Department Care Team ([facility] st Contact Info) Description 09/16/2013 3:00 PM EST Office Visit Pulmonology at [address] [address] Ming Carter MD [facility] [address] [address] COPD, moderate (Primary Dx) Social History Tobacco [...] questions or symptoms, please call my office [phone]. documented in this encounter Progress Notes * [...] mouth 3 times daily as needed. ??? yrekrorpmd-gnsdbqf-dcbvrpsf (FIORINAL) 50-325-40 mg per tablet Take 1 [...] file Social History Narrative Grew up in [place] after world war 2, left in 1959First worked in in[employer] until 1999Had asbestos on pipes in the office in which she worked.Pt lives with her in a home. 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 She plans on traveling to [place] shortly. I think it would be prudent [...] questions or symptoms, please call my office [phone]. CC: UYEN ZAMORA MD Dear Dr. Zamora, [...] phlegm, cough, or fever while away in [place]. I will see her back at the end of the summer or sooner as needed. Additional details are attached. Thank you for allowing me to assist in this patient's care, documented in this encounter Plan of Treatment Upcoming Encounters Date Type Department Care Team (Late st Contact Info) Description 01/18/2025 1:30 PM EDT Office Visit [place] [address] Carmelina Donaldson MD [facility] [place] [address] documented as of this encounter Visit Diagnoses Diagnosis COPD, moderate- Primary Chronic airway obstruction, not elsewhere classified documented in this encounter Care Teams Stud Beef Cattle Farmer Relationship Specialty Start Date End Date Uyen Zamora MD [address] [place] [address] PCP - General 07/01/13 documented as of this encounter
--- OUTSIDE RECORDS SUMMARY | 2024-07-08 14:56 | XMS_ITS | Encounter Summary ---
Author Organization [facility] [place] [address] Care Team Providers Care Distribution Systems Superintendent Name Role Phone Michael Perez MD Primary Care Provider [phone] Encounter Details Date Type Department Care Team (Late st Contact Info) Description 08/25/2011 1:05 PM EST Office Visit CAT Scan at [address] [phone] Social History Tobacco Use Types [...] 1:30 PM EDT Office [place] [address] Carmelina Donaldson MD [facility] [address] documented as of this encounter Procedures Procedure [...] for metastatic disease. Chaim Yusuf M.D./[id number] Doc #:[id number] Narrative 08/26/2011 9:35 AM EST REASON FOR [...] for metastatic disease. Chaim Yusuf M.D./RI383 Doc #:[id number] Mrita Sorenson MD IMG CT ORDERABLES documented in this encounter Visit Diagnoses Not on filedocumented in this encounter Care Teams Distribution Systems Superintendent Relationship Specialty Start Date End Date Michael Perez MD PCP - General 04/24/11 03/10/13 documented as of this encounter
--- OUTSIDE RECORDS SUMMARY | 2024-07-08 14:56 | XMS_ITS | Encounter Summary ---
Author Organization [facility] Address [address] [place] [address] Care Team Providers Care Activity Aid Name Role Phone Uyen Gerard MD Primary Care Provider Yazan Hawk MD Unavailable [phone] Reason for Referral * Cardiology (Routine/Next Available) - New Request Specialty Diagnoses / Procedures Referred By [facility] Referred To Contact Diagnoses PAF (paroxysmal atrial fibrillation) (HCC-CMS) Procedures EKG 12-LEAD Yazan Hawk MD [address] [place] [address] [address] Referral ID Status Reason Start Date Expiration Date V isits Requested Visits Authorized [id number] New Request 02/21/2022 1 1 Encounter Details Date Type Department Care Team (Late st Contact Info) Description 02/21/2022 Orders Only [facility] Cardiology Clinic [address] [place] [address] Yazan Hawk MD [address] [place], [place] [address] [address] [address] PAF (paroxysmal atrial fibrillation) (HCC-CMS) [...] Info) Description 02/07/2025 11:15 EDT Office Visit [facility] Card[facility] Clinic [address] [place] [address] Yazan Hawk MD [address] [place] [address]-[address] [place] [address] documented as of this encounter Results * EKG 12-LEAD (02/24/2022 9:18 EDT) 02/24/2022 9:18 EDT Narrative [facility] - 02/24/2022 11:24 EDT ? CVC ? Test Date: ?2022-02-24 Pat Name: ? TALITA VELASCO ?Department: ? Room: ? Gender: ? Female ? Linotypist: ?? SC : ?1935 ? Requested By: ROSIBEL SPRINGER Order Number: [id number] ? Reading MD: ?? AGAPITO XAVIER MD ? Measurements Intervals ?Iota ? Rate: ? 78 ? P: ? 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
--- OUTSIDE RECORDS SUMMARY | 2024-07-08 14:56 | XMS_ITS | Encounter Summary ---
Author Organization [facility] [place] [address] Care Team Providers Care Log Turner Name Role Phone Uyen Gerard MD Primary Care Provider [phone] Encounter Details Date Type Department Care Team (Late st Contact Info) Description 07/01/2013 1:00 PM EDT Laboratory Appointment Laboratory [address] [address] [facility] [address] [place] [address] Mirta Sorenson MD [address] [place] [address] Discharge Disposition: Home Social History Tobacco Use [...] 1:30 PM EDT Office [place] [address] Carmelina Donaldson MD [facility] [place] [address] documented as of this encounter Procedures Procedure [...] metabolic panel (non-fasting) (07/01/2013 9:27 AM EDT) [facility] Signature Glucose 90 60 - 199 mg/dL CERNER MILLENNIUM Comment:Diabetes: >=200 mg/d L plus symptoms Blood Urea Nitrogen 19(H) 8 - 18 mg/dL CERNER MILLENNIUM Creatinine 1.07 0.70 - 1.20 mg/dL CERNER MILLENNIUM Comment: Please note that the pediatric reference intervals supplied above were not validated at [facility]. Results from pediatric patients should be interpreted [...] Mark CAMARA CHEMISTRY ORDERABLES Performing Organization Address City/[facility] [[email or web address]] Co de Phone Number CERDELISA ROPERINDYIUM * CBC (with Diff) (07/01/2013 9:27 AM [...] Lab Dr Mark CAMARA HEMATOLOGY ORDERABLE S CERDELISA JUDSONINDYIUM documented in this encounter Visit Diagnoses Not on filedocumented in this encounter Care Teams Log Turner Relationship Specialty Start Date End Date Uyen Gerard MD [facility] [address] [facility] 1 [place] [address] PCP - General 07/01/13 documented as of this encounter
--- OUTSIDE RECORDS SUMMARY | 2024-07-08 14:56 | XMS_ITS | Encounter Summary ---
Author Organization [facility] Address [facility] [place] [address] Care Team Providers Care Traffic Analysis Technician Name Role Phone Uyen Gerard MD Primary Care Provider [phone] Encounter Details Date Type Department Care Team (Late Contact Info) Description 11/06/2013 Notes Only Pulmonology at [address] [phone] Ming Carter MD [facility] AT [address] [address] Social History Tobacco Use Types Packs/Day Years [...] MD - 11/06/2013 10:35 PM EST Echocardiogram [facility] 08-03-13 Normal biventricular function, normal pulmonary pressures. Aortic sclerosis but no stenosis. documented in this encounter Plan of Treatment Upcoming Encounters Date Type Department Care Team (Late Contact Info) Description 01/18/2025 1:30 PM EDT Office [place] [address] Carmelina Donaldson MD [facility] [address] documented as of this encounter Visit Diagnoses Not on filedocumented in this encounter Care Teams Traffic Analysis Technician Relationship Specialty Start Date End Date Uyen Gerard MD [facility] [address] [facility] 1 [place] [address] PCP - General 07/01/13 documented as of this encounter
--- OUTSIDE RECORDS SUMMARY | 2024-07-08 14:56 | XMS_ITS | Encounter Summary ---
Author Organization [facility] Address [facility] [place] [address] Care Team Providers Care Maintenance Mechanic Name Role Phone Lisa Murdock MD Primary Care Provider Reason for Visit * Reason Comments Abnormal X-ray pulm lesion Encounter Details Date Type Department Care Team ([facility] st Contact Info) Description 06/03/2011 9:30 AM EDT Initial consult Pulmonology at [address] [address] Ming Carter MD [facility] AT [address] [address] Need for influenza vaccination (Primary Dx); Post-nasal [...] scans from prior to kidney surgery possibly [facility] or anywhere else Spiriva one [...] a problem. When she would exercise in [employer] she noticed it as early as Spring 2009. January 2011 she reported some MCKENNA to her PCP. She describes it as little dyspnea upon walking briskly on incline but not limitting at all. She was sent for a cardiology test which was fine, a PFT, priyanka routine Chest CT. Had been exercising at [employer] regularly up until 9 months. Now exercising [...] routinely performed. She works in the yard, [employer], remains active. Triggers to symptoms typically include: [...] mouth 3 times daily as needed. ??? pmsxgkzujd-xhbmsnq-cuhldtin (FIORINAL) 50-325-40 mg per tablet Take 1 [...] in a home. 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 Sorenson. In addition, some of the [...] scans from prior to kidney surgery possibly [facility] or anywhere else Spiriva one puff per day Call with any questions Invited her family to call me anytime to discuss my thoughts. CC: MD Dr. Matthias MENDIOLA documented in this encounter Plan of Treatment Upcoming Encounters Date Type Department Care Team (Late st Contact Info) Description 01/18/2025 1:30 PM EDT Office [place] [address] Carmelina Donaldson MD [facility] [address] [place] [address] documented as of this encounter Visit Diagnoses Diagnosis Need for influenza vaccination- Primary Need for prophylactic vaccination and inoculation against influenza Post-nasal drip Postnasal drip documented in this encounter Care Teams Maintenance Mechanic Relationship Specialty Start Date End Date Lisa Murdock MD PCP - General 04/24/11 03/10/13 documented as of this encounter
--- OUTSIDE RECORDS SUMMARY | 2024-07-08 14:56 | XMS_ITS | Encounter Summary ---
Author Organization [facility] [place] [address] Care Team Providers Care Relay Man Name Role Phone Uyen Zamora MD Primary Care Provider [phone] Reason for Visit * Reason Comments COPD Encounter Details Date Type Department Care Team ([facility] st Contact Info) Description 03/31/2014 2:50 PM EDT Office Visit Pulmonology at [address] [address] Ming Carter MD [facility] AT [address] [address] COPD, severe (Primary Dx) Social History Tobacco [...] questions or symptoms, please call my office [phone]. documented in this encounter Progress Notes * [...] on ice and did not go to [place]. Required a steel plate and a screw. [...] mouth 3 times daily as needed. ??? imbkmywutv-islbwtp-smkdumnu (FIORINAL) 50-325-40 mg per tablet Take 1 [...] None Social History Narrative Grew up in [place] after world war 2, left in 1959First worked in [employer] until 1999Had asbestos on pipes in the office in which she worked.Pt lives with her in a home. 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 CC: UYEN ZAMORA MD Dear Dr. Zamora, [...] this, which interfered with her trip to [place], which she was not able to enjoy. [...] 1:30 PM EDT [place] [address] Carmelina Donaldson MD [facility] [place] [address] documented as of this encounter Visit Diagnoses Diagnosis COPD, severe- Primary Chronic airway obstruction, not elsewhere classified documented in this encounter Care Teams Relay Man Relationship Specialty Start Date End Date Uyen Zamora MD [address] [place] [address] PCP - General 07/01/13 documented as of this encounter
--- OUTSIDE RECORDS SUMMARY | 2024-07-08 14:56 | XMS_ITS | Encounter Summary ---
Author Organization [facility] Address [address] [place] [address] Care Team Providers Care Tube Lancer Name Role Phone Uyen Gerard MD Primary Care Provider [phone] Yazan Hawk MD Unavailable [phone] Reason for Visit * Reason Onset Date Comments Diagnostic Imaging Report 02/09/2022 Encounter Details Date Type Department Care Team (Late st Contact Info) Description 02/09/2022 Telephone [facility] [address] [place] [phone] Geraldine Welch PA-C [address] [facility] [address] [place], [place] [phone] Diagnostic Imaging Report Social History Tobacco Use [...] in agreement with plan. All questions answered director of campus recreation. Geraldine * Telephone Encounter - Treasure Brewster [...] Info) Description 02/07/2025 11:15 EDT Office Visit [facility] Cardiology Clinic [address] [place] [address] Yazan Hawk MD [address] [facility] [place] [address] documented as of this encounter Visit Diagnoses Not on filedocumented in this encounter Care Teams Tube Lancer Relationship Specialty Start Date End Date Uyen Gerard MD [address] [place] [phone] PCP - General 02/18/18 Yazan Hawk MD [address] [place] [phone] Cardiovascular Disease 08/12/21 documented as of this encounter
--- OUTSIDE RECORDS SUMMARY | 2024-07-08 14:56 | XMS_ITS | Encounter Summary ---
Author Organization [facility] Address [address] [place] [address] Care Team Providers Care Slab Polisher Name Role Phone Uyen Gerard MD Primary Care Provider [phone] Yazan Hawk MD Unavailable [phone] Reason for Visit * Reason Comments Other Encounter Details Date Type Department Care Team (Late st Contact Info) Description 09/27/2021 [facility] [address] [place] [address] Yazan Hawk MD 130 [facility] [address] [place] [address] Other Social History Tobacco Use [...] Info) Description 02/07/2025 11:15 EDT Office Visit [facility] [address] [place] [address] Yazan Hawk MD [address] [place] [phone] documented as of this encounter Visit Diagnoses Not on filedocumented in this encounter Discontinued Medications Medication Sig Discontinue Reason Start Date End Da te flecainide (TAMBOCOR) 50 mg tablet TAKE 1 TABLET TWICE A DAY 10/02/2020 09/27/2021 documented as of this encounter Care Teams Slab Polisher Relationship Specialty Start Date End Date Uyen Gerard MD [address] [place] [phone] PCP - General 02/18/18 Yazan Hawk MD [address] [place] [address] Cardiovascular Disease 08/12/21 documented as of this encounter
--- OUTSIDE RECORDS SUMMARY | 2024-07-08 14:57 | XMS_ITS | Encounter Summary ---
Author Organization [facility] Address [address] [place] [phone] Phone Care Team Providers Care Firearms Expert Name Role Phone Uyen Gerard MD Primary Care Provider [phone] Reason for Visit * Reason Onset Date Comments Referral 08/26/2021 Encounter Details Date Type Department Care Team (Late st Contact Info) Description 08/26/2021 Telephone [facility] Eye [address] [address] Gladys England MD [address] [place] [address] Referral Social History Tobacco Use Types Packs/Day Years Used Date Smoking Tobacco: Never Assessed Sex and Gender Information Value Date Recorded Sex Assigned at Not on file Gender Identity Not on file Sexual Orientation Not on file documented as of this encounter Miscellaneous Notes * Telephone Encounter - Pallavi Rosas Telecommunications Technician. - 08/27/2021 10:37 AM EST I called and scheduled patient for 11/[address] england in [place] * Telephone Encounter - Steph Jabari Rollins - 08/26/2021 3:07 PM EST Notes received from: Dr Lanier Referral for: glaucoma eval Notes scanned into media Please call patient to schedule appointment with Dr. England and update demographic information. documented in this encounter Plan of Treatment Upcoming Encounters Date Type Department Care Team (Late st Contact Info) Description 09/21/2024 11:00 AM EST Eye Care Visit The [facility] [place] [address] [facility] [address] [place] [address] Gladys England MD [address] [place] [address] documented as of this encounter Visit Diagnoses Not on filedocumented in this encounter Care Teams Firearms Expert Relationship Specialty Start Date End Date Uyen Gerard MD [address] [place] [address] [place] [address] PCP - General Family Medicine 08/27/21 documented as of this encounter
--- OUTSIDE RECORDS SUMMARY | 2024-07-08 14:57 | XMS_ITS | Encounter Summary ---
Author Organization [facility] Address [address] [place] [address] Care Team Providers Care Pizza Hut Assistant Name Role Phone Uyen Gerard MD Primary Care Provider [phone] Reason for Visit * Reason Comments Follow-up Atrial Fibrillation Other Antiarrhythmic Rx wi th Flecainide Encounter Details Date Type Department Care Team (Late st Contact Info) Description 08/09/2019 10:[address] [facility] [address] [place], [place] [phone] Yazan Hawk MD 130 [facility] [address] [place] [address] Paroxysmal atrial fibrillation (HCC-CMS) (Primary [...] Was hospitalized in November 2018 while in [place], where she had fluttering in her chest [...] are about to close their house in [place] and moved to [place] for the winter. She occasionally gets short of breathwith vigorous exercise, had only a couple of brief flutters in her chest. She feels that she did not get enough exercise this summer. She feels also that her circulation is not great, with her fingertips often easily getting cold. She is going to see her extension service specialist at [facility] on Thursday. She denies recent chest pain, shortness of breath with ADLs, recent syncope, orthopnea, PND, edema,bleeding, digestive troubles. She has had hypertension since her 50s, she denies a history of OR, diabetes, TIA/CVA, cardiomyopathy, peripheral vascular disease, thyroid disease. Data review: Labs 02/15/2019: Creatinine 1.06, estimated GFR 50. Sleep study 12/2018, [facility]: Mild obstructive sleep apnea. Event monitor ([employer] [facility]) 10/07/16-11/08/16: Baseline sinus rhythm, daily heart rate average 70-90/min, heart rate spectrum 60-150/, 4 days with documented AF episodes, minutes to a few hours. Echocardiogram, [facility], 09/01/2016: Normal LV size and function, mild LVH, LVEF 65-70%, normal regional wall motion. MAC, moderate focal calcification of the posterior mitral leaflet, mild MR, mildly dilated LA, RV size upper normal limits, low normal RV systolic function, mildly dilated RA, moderateTR, mildly increased PA pressure, 42 mmHg, trivial pericardial effusion. Holter EKG, [facility], 06/2016: Sinus rhythm, rare single PAC, 3 bursts SVT, longest 9 beats, 172/min, no AF. Rare single PVC, no VT. No bradycardia. No symptoms. Average 1 minute heart rate 88/min, [id number]/min. Chest x-ray, [facility], 08/31/2015: Heart at the upper limits of normal, lungs generally clear, except for some faint reticulonodular densities seen in the right midlung and apex laterally, consistent with radiodensities identified on CT. Chest CT, [facility], 08/30/2016: Market biconvex thoracolumbar scoliosis, scattered multifocal [...] 1 tab(s) orally every 12 hours ??? lmkcbnkrbrd-exiitpjtv-wkaikzwm (TRELEGY ELLIPTA) 100-62.5-25 mcg 1 puff inhaled [...] Medical History Paroxysmal atrial fibrillation, dx 08/2016, [id number] score =4, Started on Flecainide in [place], 11/2018 Cardiac cath, [place], [place] 11/2018: No significant coronary disease Hypertension Hyperlipidemia COPD/emphysema History of renal cancer, status post right nephrectomy 2005 Migraines Family History Mother: 94 yrs, atrial fibrillation Paternal Grand Mother: , angina, from [place] in her 70ies Father passed in 1984. [...] no Working, retired. 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 Allergies codeine: stomach upset: Side Effects [...] was diagnosed in 08/2016, terminated spontaneously. Her [id number] score is 4, anticoagulation with apixaban/Eliquis is appropriate. Symptomatic recurrence of AF in [place] 11/2018. Cardiac cath was negative, started on flecainide for suppression of PAF. EKG with sinus rhythm and acceptable QRS width. Her blood pressure log shows acceptable measurements in recent months (see scanned documents). She also has follow-up with her neph rologist next week. Total bkzr-dp-ahnf time: 25 minutes, >50% spent counseling on [...] Description 02/07/2025 11:[address] [facility] [address] [place], [place] [phone] Yazan Hawk MD [address] [place] [address] [place] [address] documented as of this encounter [...] tablet 1 tab(s) orally once a day xpddrhgqoqk-tzsxcawub-or lanter (TRELEGY ELLIPTA) 100-62.5-25 mcg 1 puff [...] 020 added in this encounter Care Teams Pizza Hut Assistant Relationship Specialty Start Date End Date Uyen Gerard MD [address] [place] [phone] PCP - General 02/18/18 documented as of this encounter
--- OUTSIDE RECORDS SUMMARY | 2024-07-08 14:57 | XMS_ITS | Encounter Summary ---
Author Organization [facility] Address [address] [place] [address] Care Team Providers Care Leather Coater Name Role Phone Unknown, Provider Primary Care Provider Unava ilable Encounter Details Date Type Department Care Team (Latest Contact Info) Description 02/15/2018 12:27 EDT - 02/15/2018 23:59 EDT Hospital Encounter [facility]- [address] [address] Unknown, ProviderMD Discharge Disposition: Home or Self Care Social History Tobacco Use Types Packs/Day Years Used Date Smoking Tobacco: Never Assessed Sex and Gender Information Value Date Recorded Sex Assigned at Female 02/02/2024 16:21 EDT Gender Identity Female 08/08/2019 16:13 EST Sexual Orientation Not on file documented as of this encounter Discharge Disposition Disposition Code Departure Means Destination Home or Self Group Home documented in this encounter Plan of Treatment Upcoming Encounters Date Type Department Care Team (Late st Contact Info) Description 02/07/2025 11:15 EDT Office Visit [facility] Clinic [address] [place], [place] [address] Yazan Hawk MD 130 [facility] [address] [place] [address] documented as of this encounter Visit Diagnoses Not on filedocumented in this encounter Care Teams Leather Coater Relationship Specialty Start Date End Date Unknown, ProviderMD PCP - General 09/02/16 02/17/18 documented as of this encounter
--- OUTSIDE RECORDS SUMMARY | 2024-07-08 14:57 | XMS_ITS | Referral Summary ---
Author Organization [facility] Address [address] [place] [phone] Phone Care Team Providers Care Knifer Up Name Role Phone Uyen Gerard MD Primary Care Provider [phone] Encounters Date Type Department Care Team Description 06/08/2024 10:40 AM EDT Eye Care Visit [facility] [address] [facility] [address] [place] [address] Gladys England MD Pseudoexfoliative glaucoma, both eyes, moderate stage (Primary Dx); Combined form of senile cataract of both eyes from Last 3 Months Allergies Active Allergy [...] Take 100 mg by mouth DAILY. Active [place]-3 Fatty Acids (FISH OIL) 1000 MG Oral [...] eyes twice daily 10 mL 3 02/15/2024 Active Active Problems No known active problems [...] 11:00 AM EST Eye [facility] Visit [facility] [address] [place] [address] Gladys England MD [address] [place] [address] Care Teams Knifer Up Relationship Specialty Start Date End Date Uyen Gerard MD [facility] [place] [address] PCP - General Family Medicine 08/27/21
--- OUTSIDE RECORDS SUMMARY | 2024-07-08 14:57 | XMS_ITS | Encounter Summary ---
Author Organization [facility] [place] [address] Phone Care Team Providers Care Sales Representative Advertising Name Role Phone Unavailable Primary Care Provider Unavailabl e Encounter Details Date Type Department Care Team (Late Contact Info) Description 08/07/2011 9:49 AM [facility] Hospital Encounter [facility] Laboratory Services [address] [place] [address] Social History Tobacco Use Types Packs/Day Years Used Date Smoking Tobacco: Never Assessed Sex and Gender Information Value Date Recorded Sex Assigned at Not on file Gender Identity Not on file Sexual Orientation Not on file documented as of this encounter Plan of Treatment Upcoming Encounters Date Type Department Care Team (Late Contact Info) Description 09/21/2024 11:00 AM EST [facility] [address] [place] [address] Gladys England MD [address] [place] [address] documented as of this encounter Visit Diagnoses Not on filedocumented in this encounter
--- OUTSIDE RECORDS SUMMARY | 2024-07-08 14:57 | XMS_ITS | Encounter Summary ---
Author Organization [facility] Address [address] [place] [phone] Phone Care Team Providers Care Metal Technician Name Role Phone Uyen Gerard MD Primary Care Provider [phone] Reason for Visit * Reason Comments Follow-Up Pseudoexfoliative gl aucoma, OS>OD Encounter Details Date Type Department Care Team (Latest Contact Info) Description 06/10/2023 10:00 AM EDT Eye Care Visit The [address] [place] [address] Gladys England MD [address] [place] [address] Pseudoexfoliative glaucoma, both eyes, moderate stage (Primary [...] Notes that she has not seen an stone lathe operator in about 18 months. Ms. Velasco [...] VF 10-2 OU Notes to: -[facility] in [place], [place] Performed and dictated by Dr. Gladys [...] 11:00 AM EST Eye Care Visit The [facility] [place] 17 [facility] [address] [place] [address] Gladys England MD [address] [place] [address] documented as of this encounter Visit Diagnoses Diagnosis Pseudoexfoliative glaucoma, both eyes, moderate stage- Primary Combined form of senile cataract of both eyes documented in this encounter Care Teams Metal Technician Relationship Specialty Start Date End Date Uyen Gerard MD [address] [place] [address] [place] [address] PCP - General Family Medicine 08/27/21 documented as of this encounter
--- OUTSIDE RECORDS SUMMARY | 2024-07-08 14:57 | XMS_ITS | Encounter Summary ---
Author Organization [facility] Address [address] [place] [address] Care Team Providers Care Net Wpf Developer Name Role Phone Uyen Gerard MD Primary Care Provider [phone] Reason for Visit * Reason Onset Date Comments Other 10/08/2020 Encounter Details Date Type Department Care Team (Late st Contact Info) Description 10/08/[address] [facility] [address] [place] [address] Yazan Hawk MD 130 [facility] [address] [place] [address] Other Social History Tobacco Use [...] Info) Description 02/07/2025 11:15 EDT Office Visit [facility] Card[facility] Clinic [address] [place] [address] Yazan Hawk MD 130 [facility] [address] [place] [phone] documented as of this encounter Visit Diagnoses Not on filedocumented in this encounter Care Teams Net Wpf Developer Relationship Specialty Start Date End Date Uyen Gerard MD [address] [place] [phone] PCP - General 02/18/18 documented as of this encounter
--- OUTSIDE RECORDS SUMMARY | 2024-07-08 14:57 | XMS_ITS | Encounter Summary ---
Author Organization [facility] Address [address] [place] [phone] Phone Care Team Providers Care Insurance Sales Associate Name Role Phone Uyen eGrard MD Primary Care Provider [phone] Reason for Visit * Reason Comments Refill/Eprescribe Encounter Details Date Type Department Care Team (Late st Contact Info) Description 08/23/2023 Refill The [facility] [address] [facility]. [address] [place] [phone] Gladys England MD [address] [place] [address] Refill/Eprescribe Social History Tobacco Use Types Packs/Day [...] signature * Telephone Encounter - Laura Castle Shade Cutter. - 08/24/2023 7:58 AM EST Rx request pending doctor's signature documented in this encounter Plan of Treatment Upcoming Encounters Date Type Department Care Team (Late st Contact Info) Description 09/21/2024 11:00 AM EST Eye Care Visit [facility] 17 [facility] 104 [place] [address] Gladys England MD [address] [place] [address] documented as of this encounter Visit Diagnoses Not on filedocumented in this encounter Care Teams Insurance Sales Associate Relationship Specialty Start Date End Date Uyen Gerard MD [facility] [place] [address] PCP - General Family Medicine 08/27/21 documented as of this encounter
--- OUTSIDE RECORDS SUMMARY | 2024-07-08 14:57 | XMS_ITS | Encounter Summary ---
Author Organization [facility] Address [address] [place] [address] Care Team Providers Care Fisher Lampara Net Name Role Phone Uyen Gerard MD Primary Care Provider [phone] Reason for Visit * Reason Onset Date Comments Medications Refill 03/29/2020 Encounter Details Date Type Department Care Team (Late st Contact Info) Description 03/29/2020 Refill [facility] [address] [place] [address] Marissa Boykin, RN Medications Refill Social History Tobacco [...] Encounter - Marissa Boykin, RN - 03/29/2020 3959 EDT Requested Prescriptions Signed Prescriptions Disp Refills [...] Info) Description 02/07/2025 11:15 EDT Office Visit [facility] [address] [place], [place] [phone] Kristina Hawk MD 130 [facility] [place] [address] documented as of this encounter Visit Diagnoses Not on filedocumented in this encounter Discontinued Medications Medication Sig Discontinue Reason Start Date End Da te apixaban (ELIQUIS) 5 mg tablet orally 2 times a day Reorder 03/29/2020 flecainide (TAMBOCOR) 50 mg tablet 1 tab(s) orally every 12 hours Reorder 03/29/2020 documented as of this encounter Care Teams Fisher Lampara Net Relationship Specialty Start Date End Date Uyen Gerard MD [address] [place] [phone] PCP - General 02/18/18 documented as of this encounter
--- OUTSIDE RECORDS SUMMARY | 2024-07-08 14:57 | XMS_ITS | Encounter Summary ---
Author Organization [facility] Address [address] [place] [address] Care Team Providers Care Rn Integrity Name Role Phone Uyen Zamora MD Primary Care Provider [phone] Encounter Details Date Type Department Care Team (Late st Contact Info) Description 04/21/2018 Results Only [facility] [phone] Farhan Peck [address] [place] [address] [place] [address] Social History Tobacco Use Types [...] Info) Description 02/07/2025 11:15 EDT Office Visit [facility] [address] [place] [address] Yazan Hawk MD 130 [facility] [place] [address] documented as of this encounter [...] ? TALITA VELASCO ? Accession #: ? [id number] ? : ? 1935 (Age: 83) ??F [...] 0.9 cm Clinical History: Fax results to: [phone]; clinical diagnosis code: D49.2 Gross Description: A. [...] scapula is a shave biopsy of a svcfo-tbi-ioqd-br own granular papule (1.0 x 0.9 x 0.1 cm). The margin is inked blue, trisected and submitted in B1. Mihrab Ali 04/22/2018 9:[address] [facility] 04/21/2018 8:25 EDT 04/21/2018 8:25 EDT Farhan ALVARENGA PATHOLOGY ORDERABL ES [facility] [address] [place] [address] documented in this encounter Visit Diagnoses Not on filedocumented in this encounter Care Teams Rn Integrity Relationship Specialty Start Date End Date Uyen Zamora MD [address] [place] [phone] PCP - General 02/18/18 documented as of this encounter
--- OUTSIDE RECORDS SUMMARY | 2024-07-08 14:57 | XMS_ITS | Encounter Summary ---
Author Organization [facility] Address [address] [place] [phone] Phone Care Team Providers Care Document Analyst Name Role Phone Uyen Gerard MD Primary Care Provider [phone] Reason for Visit * Reason Comments Refill/Eprescribe Encounter Details Date Type Department Care Team (Late st Contact Info) Description 02/15/2024 Refill [facility] [place] 17 [facility] [address] [place] [phone] Gladys England MD [address] [place] [address] Refill/Eprescribe Social History Tobacco Use Types Packs/Day [...] 11:00 AM EST Eye Care Visit [facility] [place] 17 [facility] [address] [place] [address] Gladys England MD [address] [place] [address] documented as of this encounter Visit Diagnoses Not on filedocumented in this encounter Care Teams Document Analyst Relationship Specialty Start Date End Date Uyen Gerard MD [address] [place] [address] [place] [address] PCP - General Family Medicine 08/27/21 documented as of this encounter
--- OUTSIDE RECORDS SUMMARY | 2024-07-08 14:57 | XMS_ITS | Encounter Summary ---
Author Organization [facility] Address [address] [place] [address] Care Team Providers Care Correspondence Review Clerk Name Role Phone Uyen Gerard MD Primary Care Provider Encounter Details Date Type Department Care Team (Latest Contact Info) Description 04/21/2018 15:46 EDT - 04/21/2018 23:59 EDT Hospital Encounter [address] [address] Unknown, Provider, Discharge Disposition: Home or Self [...] Visit [facility] Clinic [address] [place] [address] Yazan Hawk MD 130 [facility] [address] [place] [address] documented as of this encounter Visit Diagnoses Not on filedocumented in this encounter Care Teams Correspondence Review Clerk Relationship Specialty Start Date End Date Uyen Gerard MD [address] [place] [phone] PCP - General 02/18/18 documented as of this encounter
--- OUTSIDE RECORDS SUMMARY | 2024-07-08 14:57 | XMS_ITS | Encounter Summary ---
Author Organization [facility] [place] [address] Phone Care Team Providers Care Silk Screen Operator Name Role Phone Unavailable Primary Care Provider Unavailabl e Encounter Details Date Type Department Care Team (Late Contact Info) Description 03/07/2020 9:00 AM EDT Hospital Encounter [facility] Laboratory Services [address] [place] [address] Social History Tobacco Use Types Packs/Day Years [...] [facility] [place] 17 [facility] 104 [place] [phone] Gladys England MD [address] [place] [address] documented as of this encounter Procedures Procedure [...] NEGATIVE- RARE /lpf 03/07/2020 4:11 PM EDT [facility] CONVERSION RENAL EPITHELIAL CELLS RARE NEGATIVE- RARE /lpf 03/07/2020 4:11 PM EDT [facility] CONVERSION URINE WBC 0-5 0-5 CELLS /hpf 03/07/2020 4:11 PM EDT [facility] CONVERSION URINE BACTERIA OCCASIONAL NEGATIVE- OCCASIONAL /hpf 03/07/2020 4:11 PM EDT [facility] CONVERSION MUCOUS RARE NEGATIVE- RARE /lpf 03/07/2020 4:11 PM EDT [facility] CONVERSION 03/07/2020 12:4 6 PM EDT Mirta Sorenson MD LAB URINE ORDERABLES [facility] CONVERSION * (ABNORMAL) Urinalysis (03/07/2020 12:46 PM EDT) URINE COLOR YELLOW 03/07/2020 1:37 PM EDT [facility] CONVERSION URINE APPEARANCE CLEAR 03/07/20 20 1:37 PM EDT [facility] CONVERSION URINE PH 7.0 5.0 - 8.0 03/07/2020 1:37 PM EDT [facility] CONVERSION URINE SPEC GRAVITY 1.011 1.005 - 1.030 03/07/2020 1:37 PM EDT [facility] CONVERSION URINE PROTEIN NEGATIVE NEG-TRACE 03/07/2020 1:37 PM EDT [facility] CONVERSION URINE GLUCOSE NEGATIVE NEGATIVE 03/07/2020 1:37 PM EDT [facility] CONVERSION KETONES (URINE) NEGATIVE NEGATIVE 0 1:37 PM EDT [facility] CONVERSION URINE BILIRUBIN NEGATIVE NEGATIVE 0 1:37 PM EDT SN LAB CONVERSION URINE BLOOD NEGATIVE NEGATIVE 03/07/2020 1:37 PM EDT SN LAB CONVERSION Nitrite NEGATIVE NEGATIVE 03/07/2020 1:37 PM EDT [facility] CONVERSION Leukocytes TRACE(A) NEGATIVE 03/07/2020 1:37 PM EDT SN LAB CONVERSION URINE UROBILINOGEN NORMAL NORMAL 03/07/2020 1:37 PM EDT SN LAB CONVERSION 03/07/2020 12:4 6 PM EDT Mirta Sorenson MD LAB URINE ORDERABLES Performing Organization Address City/[facility]/ZIP Co de Phone Number [facility] CONVERSION * Lactate Dehydrogenase (03/07/2020 12:46 PM EDT) [facility] LDH TOTAL 208 120 - 246 U/L 03/07/2020 2:05 PM EDT [facility] CONVERSION 03/07/2020 12:4 6 PM EDT Mirta Sorenson MD LAB BLOOD ORDERABLES Performing Organization Address [facility] Co de Phone Number [facility] CONVERSION * (ABNORMAL) Comprehensive Metabolic Panel (03/07/2020 12:46 PM EDT) Pathologist [facility] ESTIMATED GFR 50(A) mL/min/1. 73sqM 03/07/2020 2:05 PM EDT [facility] CONVERSION ESTIMATED GFR Average GFR for 70+ yr old = 75 mL/min/1.73m 2 Multiply GFR by 1.16 for patients. (A) 03/07/2020 2:05 PM EDT [facility] CONVERSION SODIUM 132(L) 136 - 145 mEq/L 03/07/2020 2:05 PM EDT [facility] CONVERSION POTASSIUM 4.7 3.5 - 5.1 mEq/L 03/07/2020 2:05 PM EDT [facility] CONVERSION CHLORIDE 94(L) 98 - 107 mEq/L 03/07/2020 2:05 PM EDT [facility] CONVERSION CO2 32(H) 20 - 31 mEq/L 03/07/2020 2:05 PM EDT [facility] CONVERSION ANION GAP 6.0 6.0 - 20.0 mEq/L 03/07/2020 2:05 PM EDT [facility] CONVERSION GLUCOSE 74 74 - 100 mg/dL 03/07/2020 2:05 PM EDT [facility] CONVERSION BUN 25(H) 9 - 23 mg/dL 03/07/2020 2:05 PM EDT [facility] CONVERSION CREATININE 1.03(H) 0.50 - 0.80 mg/dL 03/07/2020 2:05 PM EDT [facility] CONVERSION BUN/CREAT RATIO 24.3 03/07/2020 2:05 PM EDT [facility] CONVERSION CALCIUM 9.9 8.3 - 10.6 mg/dL 03/07/2020 2:05 PM EDT [facility] CONVERSION TOTAL PROTEIN 7.3 5.7 - 8.2 g/dL 03/07/2020 2:05 PM EDT [facility] CONVERSION ALBUMIN 4.4 3.2 - 4.8 g/dL 03/07/2020 2:05 PM EDT [facility] CONVERSION AST 27 13 - 40 U/L 03/07/2020 2:05 PM EDT [facility] CONVERSION ALT 25 7 - 40 U/L 03/07/2020 2:05 PM EDT [facility] CONVERSION ALK.PHOS. 75 46 - 116 U/L 03/07/2020 2:05 PM EDT [facility] CONVERSION TOTAL BILIRUBIN 0.6 0.3 - 1.2 mg/dL 03/07/2020 2:05 PM EDT [facility] CONVERSION GLOBULIN 2.9 g/dL 03/07/2020 2:05 PM EDT [facility] CONVERSION ALBUMIN/GLOB RATIO 1.52 03/07/2020 2:05 PM EDT [facility] CONVERSION CKD STAGE Stage 3 03/07/2020 2:05 PM EDT [facility] CONVERSION 03/07/2020 12:4 6 PM EDT Mirta Sorenson MD LAB BLOOD ORDERABLES [facility] CONVERSION * (ABNORMAL) Complete Blood Count [...] - 37.0 g/dL 03/07/2020 1:53 PM EDT SN LAB CONVERSION RDW 13.1 11.5 - 14.5 % 03/07/2020 1:53 PM EDT SN LAB CONVERSION RDW-SD 44.3 32.0 - 68.0 fL 03/07/2020 1:53 PM EDT SN LAB CONVERSION PLATELET COUNT 285 140 - 440 X10 3/uL 03/07/2020 1:53 PM EDT SN LAB CONVERSION MPV (BACK OFFICE) 9.3(L) 9.7 - 13.2 fL 03/07/2020 1:53 PM EDT SN LAB CONVERSION NEUTROPHILS, % - [facility] 66 40 - 74 % 03/07/2020 1:53 PM EDT SN LAB CONVERSION LYMPHOCYTE % (BACK OFFICE) 19 19 - 48 % 03/07/2020 1:53 PM EDT SN LAB CONVERSION MONOCYTE % (BACK OFFICE) 12(H) 3 - 9 % 03/07/2020 1:53 PM EDT SN LAB CONVERSION EOSINOPHILS, % - [facility] 1 0 - 7 % 03/07/2020 1:53 PM EDT SN LAB CONVERSION BASOPHILS, % - [facility] 1 0 - 1 % 03/07/2020 1:53 PM EDT SN LAB CONVERSION ABSOLUTE NEUT COUNT 5.71 1.90 - 8.00 X 10 3/uL 03/07/2020 1:53 PM EDT SN LAB CONVERSION 03/07/2020 12:4 6 PM EDT Mirta Sorenson MD LAB BLOOD ORDERABLES [facility] CONVERSION * Nongyn Cytology Specimen (03/07/2020 12:46 PM EDT) Pathologist [facility] MEDICAL CYTOLOGY FINAL DIAGNOSIS: A. Voided urine, ThinPrep: [...] for Cytology H/o Renal Cancer Opt [facility], CLIA certified to perform high complexity testing and College of [place] (CAP) accredited, has developed and determined [...] be aware that there may be inadvertent breastfeeding educator errors not identified and corrected by the author. CPT Codes: CENH ?? 80434 x 1 ?Electonically signed by: ? ADELITA ESTRADA MD ? 03/13/2020 ??10:51 03/13/2020 11:21 AM EDT [facility] CONVERSION 03/07/2020 12:4 6 PM EDT Mirta Sorenson MD LAB CYTOLOGY ORDERAB LES Performing Organization Address [facility]/ZIP Co de Phone Number [facility] CONVERSION documented in this encounter Visit Diagnoses Not on filedocumented in this encounter
--- OUTSIDE RECORDS SUMMARY | 2024-07-08 14:57 | XMS_ITS | Encounter Summary ---
Author Organization [facility] [place] [place] [address] Phone Care Team Providers Care Linux System Administrator Name Role Phone Unavailable Primary Care Provider Unavailabl e Encounter Details Date Type Department Care Team (Late Contact Info) Description 01/09/2017 10:11 AM EDT Hospital Encounter [facility] Laboratory Services [address] [place] [address] Social History Tobacco Use Types Packs/Day Years [...] [facility] [place] 17 [facility] 104 [place] [address] Gladys England MD [address] [place] [address] documented as of this encounter Visit Diagnoses Not on filedocumented in this encounter
--- OUTSIDE RECORDS SUMMARY | 2024-07-08 14:57 | XMS_ITS | Encounter Summary ---
Author Organization [facility] Address [address] [place] [address] Phone Care Team Providers Care Melter Supervisor Open Hearth Furnace Name Role Phone Uyen Gerard MD Primary Care Provider [phone] Encounter Details Date Type Department Care Team (Late st Contact Info) Description 11/27/2021 Notation [facility] [address] [address] Gladys England MD [address] [place] [address] Sent notes via right fax to Dr. ANTHONY for date of service 11/26/21 . Social [...] 11:00 AM EST Eye Care Visit [facility] [place] 17 [facility] 104 [place] [address] Gladys England MD [address] [place] [address] documented as of this encounter Visit Diagnoses Not on filedocumented in this encounter Care Teams Melter Supervisor Open Hearth Furnace Relationship Specialty Start Date End Date Uyen Gerard MD [address] [place] [address] [place] [address] PCP - General Family Medicine 08/27/21 documented as of this encounter
--- OUTSIDE RECORDS SUMMARY | 2024-07-08 14:57 | XMS_ITS | Encounter Summary ---
Author Organization [facility] [place] [address] Phone Care Team Providers Care Program Assistant Name Role Phone Unavailable Primary Care Provider Unavailabl e Encounter Details Date Type Department Care Team (Late Contact Info) Description 12/15/2011 8:52 AM EDT Hospital Encounter [facility] Laboratory Services [address] [place] [address] Social History Tobacco Use Types Packs/Day Years [...] Eye [facility] Visit [facility] [place] 17 [facility] 104 [place] [address] Gladys England MD [address] [place] [address] documented as of this encounter Visit Diagnoses Not on filedocumented in this encounter
--- OUTSIDE RECORDS SUMMARY | 2024-07-08 14:57 | XMS_ITS | Encounter Summary ---
Author Organization [facility] Address [address] [place] [address] Care Team Providers Care Real Estate Paralegal Name Role Phone Uyen Gerard MD Primary Care Provider [phone] Reason for Visit * Reason Onset Date Comments Medication Management 03/01/2020 Encounter Details Date Type Department Care Team (Late st Contact Info) Description 03/01/2020 Telephone [facility] [address] [place] [address] Yazan Hawk MD [address] [facility] [address] [place] [address] Medication Management Social History Tobacco [...] EDT Notes from this encounter faxed to [facility] Pain clinic as requested. * Telephone Encounter - Yazan Hawk MD - 03/07/2020 1052 EDT Stopping anticoagulation for a procedure in a patient with AF always increases the risk of a stroke. Usually that risk increase is outweighed by the benefits of the procedure (in this case pain control), but the patient and the railway track plant operator need to understand the trade-off. The [...] but the final decision is with the railway track plant operator. * Telephone Encounter - Megha Shetty RN - 03/01/2020 1449 EDT Onto , is it OK for patient to hodl Eliquis prior to injection? * Telephone Encounter - Amee Garcia - 03/01/2020 1437 EDT Pt needs to have an injection and the Pain Clinic at [facility] is looking for guidelines/orders written to be faxed to them from Dr. Hawk regarding her eliquis. They need to know if pt can stop five days prior to injection and when her restart date would be. Fax number is [phone] documented in this encounter Plan of Treatment Upcoming Encounters Date Type Department Care Team (Late st Contact Info) Description 02/07/2025 11:15 EDT Office Visit [facility] [address] [place] [address] Yazan Hawk MD [address] [facility] [address] [place] [address] documented as of this encounter Visit Diagnoses Not on filedocumented in this encounter Care Teams Real Estate Paralegal Relationship Specialty Start Date End Date Uyen Gerard MD [address] [place] [phone] PCP - General 02/18/18 documented as of this encounter
--- OUTSIDE RECORDS SUMMARY | 2024-07-08 14:57 | XMS_ITS | Encounter Summary ---
Author Organization [facility] Address [address] [place] [address] Phone Care Team Providers Care Grain Sampler Name Role Phone Uyen Gerard MD Primary Care Provider [phone] Reason for Visit * Reason Onset Date Comments Medication Question 07/28/2023 Encounter Details Date Type Department Care Team (Late st Contact Info) Description 07/28/2023 Telephone [facility] [address] [address] Gladys England MD [address] [place] [address] Medication Question Social History Tobacco Use Types [...] Miscellaneous Notes * Telephone Encounter - Jolene Quezada, Gear Repairer. - 07/28/2023 11:52 AM EST Called and spoke with patient. I recommended she tried lubricating drops prior to prescribing a dryeye medication. She was agreeable to plan. Will call if symptoms persist. * Telephone Encounter - Katt Hagerble - 07/28/2023 9:57 AM EST Patient called [...] it will need to be sent to [facility] in [place], [place] [phone] documented in this encounter Plan of Treatment Upcoming Encounters Date Type Department Care Team (Late st Contact Info) Description 09/21/2024 11:00 AM EST Eye Care Visit [facility] [place] 17 [facility] [address] [place] [address] Gladys England MD [address] [place] [address] documented as of this encounter Visit Diagnoses Not on filedocumented in this encounter Care Teams Grain Sampler Relationship Specialty Start Date End Date Uyen Gerard MD [address] [place] [address] PCP - General Family Medicine 08/27/21 documented as of this encounter
--- OUTSIDE RECORDS SUMMARY | 2024-07-08 14:57 | XMS_ITS | Encounter Summary ---
Author Organization [facility] [place] [address] Phone Care Team Providers Care Border Measurer Name Role Phone Unavailable Primary Care Provider Unavailabl e Encounter Details Date Type Department Care Team (Late st Contact Info) Description 02/09/2017 [facility] Oncology and Hematology [address] [place] [phone] Social History Tobacco Use Types Packs/Day Years [...] Sorenson MD - 02/09/2017 11:03 AM EDT [facility] Hematology / Oncology TALITA VELASCO was [...] to a cruise in [place] to the [facility]; Previously she had a left ankle fracture which needed internal fixation in July 2013 while traveling from [place] to [place]; She was previously seen by Dr. 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 She now has a primary care and pulmonary physician at [place], [place] . 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 Followup with gear tooth lapping machine operator; She is aware that she can call me with any questions regarding kidney cancer or new symptoms. The patient is moving to [place], I again suggested that she switch her oncologic care to the [facility] [place] [facility].She will think about it. [...] patient receives all her primary care in [place]-primary care issues like screening, vaccinationand health maintenance [...] Eye Care Visit [facility] [place] 17 [facility] 104 [place] [address] Gladys England MD [address] [place] [address] documented as of this encounter Visit Diagnoses Not on filedocumented in this encounter
--- OUTSIDE RECORDS SUMMARY | 2024-07-08 14:57 | XMS_ITS | Encounter Summary ---
Author Organization [facility] Address [address] [place] [phone] Phone Care Team Providers Care Aviation Technical Systems Specialist Name Role Phone Uyen Gerard MD Primary Care Provider [phone] Reason for Visit * Reason Comments Refill/Eprescribe Encounter Details Date Type Department Care Team (Late st Contact Info) Description 07/28/2022 Refill [facility] Eye [facility] [address] [facility] [place] [phone] Gladys England MD [address] [place] [address] Refill/Eprescribe Social History Tobacco Use Types Packs/Day [...] Eye [facility] Visit [facility] [place] 17 [facility] 104 [place] [address] Gladys England MD [address] [place] [address] documented as of this encounter Visit Diagnoses Not on filedocumented in this encounter Care Teams Aviation Technical Systems Specialist Relationship Specialty Start Date End Date Uyen Gerard MD [address] [place] [address] [place] [address] PCP - General Family Medicine 08/27/21 documented as of this encounter
--- OUTSIDE RECORDS SUMMARY | 2024-07-08 14:57 | XMS_ITS | Encounter Summary ---
Author Organization [facility] Address [address] [place] [phone] Phone Care Team Providers Care Hearing Therapy Director Name Role Phone Uyen Gerard MD Primary Care Provider [phone] Encounter Details Date Type Department Care Team (Late st Contact Info) Description 06/10/2023 Notation [facility] [address] [address] Gladys England MD [address] [place] [phone] Sent notes via right fax to [facility] for date of service 06/10/23 . Social [...] Eye [facility] Visit [facility] [place] 17 [facility] 104 [place] [address] Gladys England MD [address] [place] [address] documented as of this encounter Visit Diagnoses Not on filedocumented in this encounter Care Teams Hearing Therapy Director Relationship Specialty Start Date End Date Uyen Gerard MD [facility] [place] [address] PCP - General Family Medicine 08/27/21 documented as of this encounter
--- OUTSIDE RECORDS SUMMARY | 2024-07-08 14:57 | XMS_ITS | Encounter Summary ---
Author Organization [facility] [place] [address] Phone Care Team Providers Care Smoking Pipe Mounter Name Role Phone Unavailable Primary Care Provider Felizabl e Encounter Details Date Type Department Care Team (Late st Contact Info) Description 01/29/2016 [facility] Oncology and Hematology [address] [place] [phone] Social History Tobacco Use Types Packs/Day Years [...] Sorenson MD - 01/29/2016 3:19 PM EDT [facility] Hematology / Oncology [...] fixation in July 2013 while traveling from [place] to [place]; She was previously seen by Dr. 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 She now has a primary care physician at [place], [place].She is also planning to move her pulmonary care to [place]; . 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 The patient is moving to [place], I again suggested that she switch her oncologic care to the [facility].She will think about it. [...] patient receives all her primary care in [place]-primary care issues like screening, vaccinationand health maintenance issues are deferred to her PCP; CC: Uyen Gerard MD documented in this encounter Plan of Treatment Upcoming Encounters Date Type Department Care Team (Late st Contact Info) Description 09/21/2024 11:00 AM EST Eye Care Visit [facility] [place] 17 [facility] 104 [place] [address] Gladys England MD [address] [place] [address] documented as of this encounter Visit Diagnoses Not on filedocumented in this encounter
--- OUTSIDE RECORDS SUMMARY | 2024-07-08 14:57 | XMS_ITS | Encounter Summary ---
Author Organization [facility] Address [address] [place] [phone] Phone Care Team Providers Care Biofuels Plant Superintendent Name Role Phone Uyen Gerard MD Primary Care Provider [phone] Reason for Visit * Reason Comments Follow-up Evaluation For Glaucoma Encounter Details Date Type Department Care Team (Latest Contact Info) Description 01/06/2024 8:30 AM EDT Eye Care Visit [facility] [address] [place] [address] Gladys England MD [address] [place] [address] Pseudoexfoliative glaucoma, both eyes, moderate stage (Primary [...] and OCT RNFL/RGCL Notes to: -[facility] in [place], [place] Performed and dictated by Dr. Gladys England to scribe BOONE Haile, OSC No annotated images are attached to the encounter. 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
--- OUTSIDE RECORDS SUMMARY | 2024-07-08 14:57 | XMS_ITS | Encounter Summary ---
Author Organization [facility] Address [address] [place] [phone] Phone Care Team Providers Care Horses Or Mules Teamster Name Role Phone Uyen Gerard MD Primary Care Provider [phone] Reason for Visit * Reason Comments Follow-up Evaluation For Glaucoma Encounter Details Date Type Department Care Team (Latest Contact Info) Description 03/26/2022 9:00 AM EDT Eye Care Visit [facility] 17 [facility] 104 [place] [address] Gladsy England MD [address] [place] [address] Pseudoexfoliative glaucoma, both eyes, moderate stage (Primary [...] is having help putting them in from [employer]. 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
--- OUTSIDE RECORDS SUMMARY | 2024-07-08 14:57 | XMS_ITS | Encounter Summary ---
Author Organization [facility] Address [address] [place] [address] Phone Care Team Providers Care Youth Pastor Name Role Phone Uyen Gerard MD Primary Care Provider [phone] Reason for Visit * Reason Onset Date Comments Appt Needed 11/30/2023 Encounter Details Date Type Department Care Team (Late st Contact Info) Description 11/30/2023 Telephone [facility] [address] [place] [address] Gladys England MD [address] [place] [address] Appt Needed Social History Tobacco Use Types [...] open post op slots on 01/05 in [place] * Telephone Encounter - Lucie Gerardo - 11/30/2023 9:31 AM EDT Patient needs to reschedule her 12/[address] England. Please advise on a SHORT in [facility]. documented in this encounter Plan of Treatment Upcoming Encounters Date Type Department Care Team (Late st Contact Info) Description 09/21/2024 11:00 AM EST Eye Care Visit [facility] [place] 17 [facility] 104 [place] [address] Gladys England MD [address] [place] [address] documented as of this encounter Visit Diagnoses Not on filedocumented in this encounter Care Teams Youth Pastor Relationship Specialty Start Date End Date Uyen Gerard MD [facility] [place] [address] PCP - General Family Medicine 08/27/21 documented as of this encounter
--- OUTSIDE RECORDS SUMMARY | 2024-07-08 14:57 | XMS_ITS | Encounter Summary ---
Author Organization [facility] [place] [address] [place] [address] Phone Care Team Providers Care Staff Internist Office Based Only Name Role Phone Unavailable Primary Care Provider Unavailabl e Encounter Details Date Type Department Care Team (Late st Contact Info) Description 02/21/2014 12:41 PM EDT Hospital Encounter [facility] Specimen Drop Off 8 [place] [address] Social History Tobacco Use Types Packs/Day Years [...] [facility] [place] 17 [facility] 104 [place] [address] Gladys England MD [address] [place] [address] documented as of this encounter Visit Diagnoses Not on filedocumented in this encounter
--- OUTSIDE RECORDS SUMMARY | 2024-07-08 14:57 | XMS_ITS | Encounter Summary ---
Author Organization [facility] Address [address] [place] [phone] Phone Care Team Providers Care Customer Experience Specialist Name Role Phone Uyen Gerard MD Primary Care Provider [phone] Encounter Details Date Type Department Care Team (Late st Contact Info) Description 09/30/2023 Telephone [facility] [address] [place] [phone] Gladys England MD [address] [place] [address] Social History Tobacco Use Types Packs/Day Years [...] she is able to. Call back number [phone] * Telephone Encounter - Gladys England MD - 09/30/2023 11:11 AM EST Per pt request, I called pt's daughter, Katie VelascoMD in [place]. [phone].Left message summarizing her visit with me today and instructed to call back at main number if she would like to further discuss. documented in this encounter Plan of Treatment Upcoming Encounters Date Type Department Care Team (Late st Contact Info) Description 09/21/2024 11:00 AM EST [facility] [place] 17 [facility] 104 [place] [address] Gladys England MD [address] [place] [address] documented as of this encounter Visit Diagnoses Not on filedocumented in this encounter Care Teams Customer Experience Specialist Relationship Specialty Start Date End Date Uyen Gerard MD [facility] [place] [address] PCP - General Family Medicine 08/27/21 documented as of this encounter
--- OUTSIDE RECORDS SUMMARY | 2024-07-08 14:57 | XMS_ITS | Encounter Summary ---
Author Organization [facility] Address [address] [place] [phone] Phone Care Team Providers Care Document Imaging Manager Name Role Phone Uyen Gerard MD Primary Care Provider [phone] Reason for Visit * Reason Comments Follow-Up Pseudoexfoliative gl aucoma, both eyes, moderate stage Encounter Details Date Type Department Care Team (Latest Contact Info) Description 01/28/2023 11:00 AM EDT Eye Care Visit [facility] [address] [place] [address] Gladys England MD [address] [place] [address] Pseudoexfoliative glaucoma, both eyes, moderate stage (Primary [...] AM EST Eye Care Visit [facility] [place] 17 [facility] 104 [place] [address] Gladys England MD [address] [place] [address] documented as of this encounter Visit Diagnoses Diagnosis Pseudoexfoliative glaucoma, both eyes, 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
--- OUTSIDE RECORDS SUMMARY | 2024-07-08 14:57 | XMS_ITS | Encounter Summary ---
Author Organization [facility] Address [address] [place] [phone] Phone Care Team Providers Care Field Cane Scaler Helper Name Role Phone Uyen Gerrad MD Primary Care Provider [phone] Encounter Details Date Type Department Care Team (Late st Contact Info) Description 01/08/2024 Telephone [facility] [address] [place] [phone] Gladys England MD [address] [place] [address] Social History Tobacco Use Types Packs/Day Years [...] new appointment will be 06-08-24 @10:40am in [place] with Dr England. She was all set with that DOS and time documented in this encounter Plan of Treatment Upcoming Encounters Date Type Department Care Team (Late st Contact Info) Description 09/21/2024 11:00 AM EST [facility] [place] 17 [facility] 104 [place] [address] Gladys England MD [address] [place] [address] documented as of this encounter Visit Diagnoses Not on filedocumented in this encounter Care Teams Field Cane Scaler Helper Relationship Specialty Start Date End Date Uyen Gerard MD [address] [place] [address] PCP - General Family Medicine 08/27/21 documented as of this encounter
--- OUTSIDE RECORDS SUMMARY | 2024-07-08 14:57 | XMS_ITS | Encounter Summary ---
Author Organization [facility] [place] [place] [address] Phone Care Team Providers Care Lottery Manager Name Role Phone Unavailable Primary Care Provider Unavailabl e Encounter Details Date Type Department Care Team (Late Contact Info) Description 08/22/2011 9:37 AM [facility] Hospital Encounter [facility] Laboratory Services 8 [place] [address] Social History Tobacco Use Types Packs/Day Years [...] [facility] [address] [place] [address] Gladys England MD [address] [place] [address] documented as of this encounter Visit Diagnoses Not on filedocumented in this encounter
--- OUTSIDE RECORDS SUMMARY | 2024-07-08 14:57 | XMS_ITS | Encounter Summary ---
Author Organization [facility] Address [address] [place] [address] Care Team Providers Care Lien Searcher Name Role Phone Uyen Gerard MD Primary Care Provider [phone] Reason for Visit * Reason Comments Atrial Fibrillation Encounter Details Date Type Department Care Team (Late st Contact Info) Description 06/08/2020 10:45 EDT Office Visit [facility] [address] [place], [place] [id number] Yazan Hawk MD [address] [facility] [address] [place] [address] Paroxysmal atrial fibrillation (HCC-CMS) (Primary [...] Yazan Hawk MD - 06/08/2020 1045 EDT [facility] Cardiology Department Subjective: Chief Complaint(s): Atrial Fibrillation HPI: 85-year-old woman with paroxysmal atrial fibrillation, hypertension, hyperlipidemia, COPD, migraines, history of renal cancer status post right nephrectomy 2004. First episode of AF with RVR 08/2016, received ditiazem with spont. conversion to sinus rhythm during ER evaluation. Started on metoprolol and apixaban. Was hospitalized 11/2018 in [place], with fluttering in her chest and lightheadedness. [...] her 50s, she denies a history of DC, diabetes, TIA/CVA, cardiomyopathy, peripheral vascular disease, thyroid disease. Data review: Labs 02/15/2019: Creatinine 1.06, estimated GFR 50. Sleep study 12/2018, [facility]: Mild obstructive sleep apnea, not using CPAP. Event monitor (Cazoodle SEEQ) 10/07/16-11/08/16: Baseline sinus rhythm, daily heart [...] symptoms. Average 1 minute heart rate 88/min, [id number]/min. Chest x-ray, [facility], 08/31/2015: Heart [...] 2 times daily. 180 Tab 1 ??? xnpwijcicjb-zbyeorzbz-rbmgllvk (TRELEGY ELLIPTA) 100-62.5-25 mcg 1 puff inhaled [...] Medical History Paroxysmal atrial fibrillation, dx 08/2016, [id number] score =4, Started on Flecainide in [place], 11/2018 Cardiac cath, [place], [place] 11/2018: No significant coronary disease Hypertension Hyperlipidemia COPD/emphysema History of renal cancer, status post right nephrectomy 2005 Migraines Family History Mother: 94 yrs, atrial fibrillation Paternal Grand Mother: , angina, from [place] in her 70ies Father passed in 1984. [...] No. 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 EKG, 06/08/2020: Sinus rhythm with first-degree AV delay and PACs. 71/min, MO 232 ms, QRS 92 ms, QT 398 [...] was diagnosed in 08/2016, terminated spontaneously. Her ILU3YR3-SLNs score is 4, anticoagulation with apixaban/Eliquis is appropriate. Symptomatic recurrence of AF in [place] 11/2018. Cardiac cath was negative, started on flecainide for suppression of PAF. EKG today again with sinus rhythm and acceptable QRS width. Her blood pressureshowed acceptable measurements in recent months. However, she occasionally feels fatigued which might be related to iatrogenic hypotension, will try to reduce Metoprolol. Total feuz-me-tomw time: 25 minutes, >50% spent counseling on [...] Info) Description 02/07/2025 11:15 EDT Office Visit [facility] [address] [place], [place] [address] Yazan Hawk MD [address] [facility] [address] [place] [address] documented as of this encounter Procedures Procedure Name Priority Date/Time Associated Diagnosis Comments EKG 12-LEAD 06/08/2020 10:28 EDT documented in this encounter Results * EKG 12-LEAD (06/08/2020 10:28 EDT) 06/08/2020 10:2 8 EDT Narrative [facility] - 06/08/2020 10:28 EDT ? [facility] ? Test Date: ?2020-06-08 10:28:42 Pat Name: ? TALITA VELASCO ?Department: ?Room: ? Gender: ? F ?Senior Functional Analyst: ?? ES : ?1935 ? Requested By: Order Number: ?Reading MD: ?? Ryne Machuca MD ? Measurements Intervals ?[place] ? Rate: ? 71 ? P: ?73 MO: ? 232 ?QRS: ?-46 QRSD: ? 92 [...] 06-08-2020 16:56:54 EDT by Ryne Machuca MD [email or web address] Procedure Note Ryne Machuca MD - 06/08/2020 [facility] Test Date: 2020-06-08 10:28:42 Pat Name: TALITA VELASCO Department: Room: Gender: F Senior Functional Analyst: ES : 1935 Requested By: Order Number: Reading MD: Ryne Machuca MD Measurements Intervals [place] Rate: 71 P: 73 MO: 232 QRS: -46 QRSD: 92 T: 47 [...] 06-08-2020 16:56:54 EDT by Ryne Machuca MD [email or web address] Yazan Hawk MD CARDIAC ECG ORD ERABLES [facility] [address] [place] [address] documented in this encounter Visit Diagnoses Diagnosis [...] documented as of this encounter Care Teams Lien Searcher Relationship Specialty Start Date End Date Uyen Gerard MD [address] [phone] PCP - General 02/18/18 documented as of this encounter
--- OUTSIDE RECORDS SUMMARY | 2024-07-08 14:57 | XMS_ITS | Encounter Summary ---
Author Organization [facility] [place] [address] [place] [address] Phone Care Team Providers Care Spoilage Worker Name Role Phone Unavailable Primary Care Provider Unavailabl e Encounter Details Date Type Department Care Team (Late st Contact Info) Description 01/30/2015 [facility] [address] [place] [address] Social History Tobacco Use Types Packs/Day Years [...] [facility] [address] [place] [address] lGadys England MD [address] [place] [address] documented as of this encounter Visit Diagnoses Not on filedocumented in this encounter
--- OUTSIDE RECORDS SUMMARY | 2024-07-08 14:57 | XMS_ITS | Encounter Summary ---
Author Organization [facility] Address [address] [place] [phone] Phone Care Team Providers Care Offbearer Sewer Pipe Name Role Phone Uyen Gerard MD Primary Care Provider [phone] Reason for Visit * Reason Comments Follow-up Evaluation For Glaucoma Encounter Details Date Type Department Care Team (Latest Contact Info) Description 09/30/2023 9:00 AM EST Eye Care Visit [facility] 17 [facility] [address] [place] [address] Gladys England MD [address] [place] [address] Pseudoexfoliative glaucoma, both eyes, moderate stage (Primary [...] follow-up. When she was seen at the printer operator she was concerned about the appearance of her eyes so she went and had allergy testing done(with her daughter, an diesel pile hammer operator). The results showed no allergy to Latanoprost [...] doesn't drive at night. Her was her waste collection driver and he a few months ago. [...] for IOP check Notes to: -[facility] in [place], [place] Performed and dictated by Dr. Gladys England to scribe Luis Trevizo No annotated images are attached to the encounter. documented in this encounter Plan of Treatment Upcoming Encounters Date Type Department Care Team (Late st Contact Info) Description 09/21/2024 11:00 AM EST Eye Care Visit [facility] [place] 17 [facility] [address] [place] [address] Gladys England MD [address] [place] [address] documented as of this encounter Visit Diagnoses Diagnosis Pseudoexfoliative glaucoma, both eyes, moderate stage- Primary Combined form of senile cataract of both eyes documented in this encounter Care Teams Offbearer Sewer Pipe Relationship Specialty Start Date End Date Uyen Gerard MD [facility] [place] [address] PCP - General Family Medicine 08/27/21 documented as of this encounter
--- OUTSIDE RECORDS SUMMARY | 2024-07-08 14:57 | XMS_ITS | Clinical Summary ---
Author Organization [facility] Address [address] [place] [phone] Phone Care Team Providers Care Chief Dietitian Name Role Phone Uyen Gerard MD Primary Care Provider [phone] Allergies Active Allergy Reactions Criticality Noted Date [...] Take 100 mg by mouth DAILY. Active Orion-3 Fatty Acids (FISH OIL) 1000 MG Oral [...] 10:40 AM EDT Eye Care Visit [facility] [address] [address] Gladys England MD Pseudoexfoliative glaucoma, both eyes, [...] Eye [facility] Visit [facility] [place] 17 [facility] [address] [place] [address] Gladys England MD [address] [place] [address] Health Maintenance Due Date Last Done Comments Cholesterol 1935 DTaP/Tdap/Td Vaccines (1 - Tdap) 01/15/1956 Zoster (Shingles) Vaccines (1 of 2) 1987 Osteoporosis Screening 2002 Pneumococcal Vaccine: 65+ Ye ars (1 of 1 - PCV) 2002 RSV Immunization ( [place] Adults 60+) (1 - 1-dose 75+ series) 01/15/2012 COVID-19 Vaccine ( - 2023-2 5 season) 2024 Influenza Vaccine (#1) 2024 HIB Vaccines Aged [...] age to complete this topic Care Teams Chief Dietitian Relationship Specialty Start Date End Date Uyen Gerard MD [address] [facility] [place] [address] PCP - General Family Medicine 08/27/21
--- OUTSIDE RECORDS SUMMARY | 2024-07-08 14:57 | XMS_ITS | Encounter Summary ---
Author Organization [facility] Address [address] [place] [phone] Phone Care Team Providers Care Baton Twirler Name Role Phone Uyen Gerard MD Primary Care Provider [phone] Reason for Visit * Reason Onset Date Comments Appt Needed 08/14/2023 Encounter Details Date Type Department Care Team (Late st Contact Info) Description 08/14/2023 Telephone [facility] Eye [address] [address] Gladys England MD [address] [place] [address] Appt Needed Social History Tobacco Use Types [...] 09/[address] England at [facility]. * Telephone Encounter - Lucie Gerardo - 08/14/2023 4:57 PM EST LVM asking patient to call back. * Telephone Encounter - Roe Annabel - 08/14/2023 4:08 PM EST We are unable to get her in on 09/23 as has a full morning and there are slots on hold for post ops already * Telephone Encounter - Katt Lovett - 08/14/2023 3:56 PM EST Patient called in wanting to reschedule her 09/[address] England to [place] between 09/19 and 09/24. Dr. England is [...] 11:00 AM EST Eye Care Visit [facility] [place] 17 [facility] 104 [place] [address] Gladys England MD [address] [place] [address] documented as of this encounter Visit Diagnoses Not on filedocumented in this encounter Care Teams Baton Twirler Relationship Specialty Start Date End Date Uyen Gerard MD [address] [place] [address] [place] [address] PCP - General Family Medicine 08/27/21 documented as of this encounter
--- OUTSIDE RECORDS SUMMARY | 2024-07-08 14:57 | XMS_ITS | Encounter Summary ---
Author Organization [facility] Address [address] [place] [phone] Phone Care Team Providers Care After School Program Assistant Name Role Phone Uyen Gerard MD Primary Care Provider [phone] Reason for Visit * Reason Comments Follow-Up Pseudoexfoliative Gl aucoma, OS>OD Encounter Details Date Type Department Care Team (Latest Contact Info) Description 12/17/2021 8:30 AM EDT Eye Care Visit [facility] [address] [facility] [address] [place] [phone] Gladys England MD [address] [place] [address] Pseudoexfoliative glaucoma, both eyes, moderate stage (Primary [...] dictated by Dr. Gladys England to delmyibe Roe Jin No annotated images are attached to the encounter. 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
--- OUTSIDE RECORDS SUMMARY | 2024-07-08 14:57 | XMS_ITS | Encounter Summary ---
Author Organization [facility] Address [address] [place] [phone] Phone Care Team Providers Care Die Cutter Operator Name Role Phone Uyen Gerard MD Primary Care Provider [phone] Reason for Visit * Reason Comments Glaucoma Consult referred by Dr. Singh Encounter Details Date Type Department Care Team (Latest Contact Info) Description 11/26/2021 2:20 PM EDT Eye Care Visit [facility] [address] [facility] [address] [place] [phone] Gladys England MD [address] [place] [address] Pseudoexfoliative glaucoma, both eyes, moderate stage (Primary [...] attached to the encounter. * Jolene Quezada, Police Sergeant [employer]inct. 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
--- OUTSIDE RECORDS SUMMARY | 2024-07-08 14:57 | XMS_ITS | Encounter Summary ---
Author Organization [facility] [place] [address] [place] [address] Phone Care Team Providers Care Engineering Programmer Name Role Phone Unavailable Primary Care Provider Unavailabl e Encounter Details Date Type Department Care Team (Late Contact Info) Description 12/13/2010 10:50 AM EDT Hospital Encounter [facility] Laboratory Services [address] [place] [address] Social History Tobacco Use Types Packs/Day Years [...] [facility] [place] 17 [facility] 104 [place] [address] Gladys England MD [address] [place] [address] documented as of this encounter Visit Diagnoses Not on filedocumented in this encounter
--- OUTSIDE RECORDS SUMMARY | 2024-07-08 14:57 | XMS_ITS | Encounter Summary ---
Author Organization [facility] [place] [address] Phone Care Team Providers Care Tick Sewer Name Role Phone Unavailable Primary Care Provider Unavailabl e Encounter Details Date Type Department Care Team (Late Contact Info) Description 01/08/2016 8:18 AM EDT Hospital Encounter [facility] Laboratory Services [address] [place] [address] Social History Tobacco Use Types Packs/Day Years [...] [facility] [place] 17 [facility] [address] [place] [address] Gladys England MD [address] [place] [address] documented as of this encounter Visit Diagnoses Not on filedocumented in this encounter
--- OUTSIDE RECORDS SUMMARY | 2024-07-08 14:57 | XMS_ITS | Encounter Summary ---
Author Organization [facility] Address [address] [place] [phone] Phone Care Team Providers Care Control System Manager Name Role Phone Uyen Gerard MD Primary Care Provider Reason for Visit * Reason Comments Follow-up Evaluation For Glaucoma Encounter Details Date Type Department Care Team (Latest Contact Info) Description 06/08/2024 10:40 AM EDT Eye Care Visit [facility] 17 [facility] 104 [place] [address] Gladys England MD [address] [place] [address] Pseudoexfoliative glaucoma, both eyes, moderate stage (Primary [...] Progress Notes * Gladys England MD - 06/08/2024 10:40 AM EDT Chief Complaint: Patient presents with: [...] 14-16mmHg Examination Right Left Visual Acuity 20/40+1 20/40-2 Pinhole Vision 20/ni 20/ni Intraocular Pressure 15 mmHg (Applanation) 17 mmHg (Applanation) External The pupils are normal (no APD). The lids and ocular adnexa are normal. Ocular motility is full. Anterior Segments The conjunctivae and corneae are normal. The anterior chambers are deep. The irides are normal. Right eye has early nasal band K. ABMD changes Lens 2-3+NS/CC 2+NS/CC - PXE on anterior capsule and pupil margin Vitreous Normal Normal Optic Nerve Cupping is estimated at 80% thinning to the rim inferiorly. No disc hemorrhage Cupping is estimated at 85% loss of inferior rim and inferior pit. No disk heme Retina Normal Normal OCT RNFL (06/08/24) Spectralis: 65?? (Q = 31) - severe IT thinning, progressive nasal thinning Spectralis: 61 ?? (Q = 30) - Moderate temporal thinning; severe ST and IT thinning OCT RGCL (06/08/24) RGCL volume = 0.80 mm3 - Inferotemporal loss RGCL volume = 0.66 mm3 - Inferior loss Visual Burnham (01-28-23) TRUNG 24-2: 2/11FLs, superior arcuate depression MD-4.39 TRUNG 24-2: 2/12FLs, dense superior arcuate nearly altitudinal defect MD-15.31 Visual Burnham (09/30/2023) TRUNG 10-2: Baseline - superior arcuate depression not yet to fixation MD-1.60 TRUNG 10-2: Baseline - dense superior arcuate not yet up to fixation MD-10.12 Pachymetry ? Confrontation VF Full Other (SN defect all others full) Fundus photo (03/26/22) Glaucomatous cupping noted, no disc heme noted Glaucomatous cupping noted, no disc heme noted Impression: 1. 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 IOP is borderline in the left eye today. OCT RNFL shows some progressive thinning in the right eye. - Disk heme OD (06-10-2023) - No [...] OU 3. Follow up with me in September for IOP check and VF 24-2 OU - PT IS LEAVING FOR [place] IN OCTOBER Notes to: -[facility] in [place], [place] Performed and dictated by Dr. Gladys England to scribe Roe Jin, COA, OSC No annotated images are attached to the encounter. 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
--- OUTSIDE RECORDS SUMMARY | 2024-07-08 14:57 | XMS_ITS | Encounter Summary ---
Author Organization [facility] Address [address] [place] [address] Phone Care Team Providers Care Gas Analyst Name Role Phone Uyen Gerard MD Primary Care Provider [phone] Reason for Visit * Reason Onset Date Comments Medication Question 09/02/2023 Encounter Details Date Type Department Care Team (Late st Contact Info) Description 09/02/2023 Telephone [facility] [address] [address] Gladys England MD [address] [place] [address] Medication Question Social History Tobacco Use [...] Notes * Telephone Encounter - Jolene Quez[employer] - 09/03/2023 9:47 AM EST Called and [...] lowering IOP * Telephone Encounter - Katt Bony - 09/02/2023 3:13 PM EST Rec'd call from Dr. Earl's office ([facility] [phone]) stating that the patient came in for an appointment and was experiencing an allergic reaction to the Alphagan. Please reach out to patient with an alternative. documented in this encounter Plan of Treatment Upcoming Encounters Date Type Department Care Team (Late st Contact Info) Description 09/21/2024 11:00 AM EST Eye Care Visit [facility] [address] [address] Gladys England MD [address] [place] [address] documented as of this encounter Visit Diagnoses Not on filedocumented in this encounter Care Teams Gas Analyst Relationship Specialty Start Date End Date Uyen Gerard MD [address] [place] [address] [place] [address] PCP - General Family Medicine 08/27/21 documented as of this encounter
--- OUTSIDE RECORDS SUMMARY | 2024-07-08 14:57 | XMS_ITS | Encounter Summary ---
Author Organization [facility] Address [address] [place] [phone] Phone Care Team Providers Care Employment Director Name Role Phone Uyen Gerard MD Primary Care Provider [phone] Reason for Visit * Reason Onset Date Comments Refill Request 01/08/2023 Encounter Details Date Type Department Care Team (Late st Contact Info) Description 01/02/2023 Refill [facility] [address] [address] Gladys England MD [address] [place] [phone] Refill Request Social History Tobacco Use Types [...] [facility] Patient stated that she requested the rx [...] 11:00 AM EST Eye Care Visit [facility] [address] [place] [address] Gladys England MD [address] [place] [address] documented as of this encounter Visit Diagnoses Not on filedocumented in this encounter Care Teams Employment Director Relationship Specialty Start Date End Date Uyen Gerard MD [address] [place] [address] PCP - General Family Medicine 08/27/21 documented as of this encounter
--- OUTSIDE RECORDS SUMMARY | 2024-07-08 14:57 | XMS_ITS | Encounter Summary ---
Author Organization [facility] Address [address] [place] [phone] Phone Care Team Providers Care Client Support Administrator Name Role Phone Uyen Gerard MD Primary Care Provider [phone] Encounter Details Date Type Department Care Team (Late st Contact Info) Description 01/28/2023 Notation [facility] [address] [address] Gladys England MD [address] [place] [address] Sent notes via right fax to [...] Eye Care Visit [facility] [place] 17 [facility] 104 [place] [address] Gladys England MD [address] [place] [address] documented as of this encounter Visit Diagnoses Not on filedocumented in this encounter Care Teams Client Support Administrator Relationship Specialty Start Date End Date Uyen Gerard MD [facility] [place] [address] [address] PCP - General Family Medicine 08/27/21 documented as of this encounter
--- OUTSIDE RECORDS SUMMARY | 2024-07-08 14:57 | XMS_ITS | Encounter Summary ---
Author Organization [facility] [place] [address] Phone Care Team Providers Care Territory Sales Manager Medical Name Role Phone Unavailable Primary Care Provider Unavailabl e Encounter Details Date Type Department Care Team ([facility] st Contact Info) Description 03/07/2020 [facility] Oncology and Hematology [address] [place] [phone] Mirta Sorenson MD [address] [address] Social History Tobacco Use Types Packs/Day Years [...] Sorenson MD - 03/07/2020 12:05 PM EDT [facility] Hematology / Oncology The patient was seen [...] had admissions to the [place]- details requested; No [...] [place] [facility] She went to to [facility] 2014. Previously she had a left ankle fracture which needed internal fixation in July 2013 while traveling from [place] to [place]; She was previously seen by Dr. Ming Carter in pulmonary medicine and has been diagnosed to havemild to moderate COPD for which she is using Spireva with good control of symptoms;Functionality has improved; No family member has been diagnosed with cancer;She and her have now permanentlymoved to [place]. She now has a primary care and pulmonary physician at [place], [place] . 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 between [place] and [place]; Patient originally lived and worked in [facility] Review of Systems The patient denies [...] Please provide one pair of thigh-high compression geriamemx-18-90 mm mercury VITAMIN C CAPSULE (ASCORBIC ACID CAPS) 1000u once daily ELIQUIS 5 MG ORAL TABLET (APIXABAN) take 1 tab twice a day; Route: ORAL TRELEGY ELLIPTA AEROSOL POWDER BREATH ACTIVATED ([id number]-[id number]-ZGTQZN AEPB) once a day LOSARTAN POTASSIUM 50 [...] & Recommendations: Problem #1: RENAL CELL CANCER ([id number]) Complete Medication List: IMITREX 50 MG ORAL [...] Please provide one pair of thigh-high compression navwsrrvs-83-12 mm mercury VITAMIN C CAPSULE (ASCORBIC ACID CAPS) 1000u once daily ELIQUIS 5 MG ORAL TABLET (APIXABAN) take 1 tab twice a day; Route: ORAL TRELEGY ELLIPTA AEROSOL POWDER BREATH ACTIVATED (YSSACDIEECW-CZVJAORCL-JUKCVD AEPB) once a day LOSARTAN POTASSIUM 50 [...] have been stable since 2004. Followup with entry specialists; She is aware that she can call me with any questions regarding kidney cancer or new symptoms. The patient has moved to [place], I again suggested that she switch her oncologic care to the [facility] [place] at [facility].This recommendation still stands. I also previously [...] patient receives all her primary care in [place]-primary care issues like screening, vaccinationand health maintenance [...] Eye Care Visit [facility] [place] 17 [facility] 104 [place] [address] Gladys England MD [address] [place] [address] documented as of this encounter Visit Diagnoses Not on filedocumented in this encounter
--- OUTSIDE RECORDS SUMMARY | 2024-07-08 14:57 | XMS_ITS | Encounter Summary ---
Author Organization [facility] Address [address] [place] [address] Phone Care Team Providers Care Cake Stripper Name Role Phone Unavailable Primary Care Provider Unavailabl e Encounter Details Date Type Department Care Team (Late st Contact Info) Description 03/07/2020 [facility] OUTPATIENT CONV Generic, Provider [address] [address] Social History Tobacco Use Types Packs/Day Years [...] Eye Care Visit [facility] [place] 17 [facility] 104 [place] [address] Gladys England MD [address] [place] [address] documented as of this encounter Visit Diagnoses Not on filedocumented in this encounter
--- OUTSIDE RECORDS SUMMARY | 2024-07-08 14:57 | XMS_ITS | Encounter Summary ---
Author Organization [facility] Address [address] [place] [address] Care Team Providers Care Trust Manager Assistant Name Role Phone Unknown, Provider Primary Care Provider Unava ilable Encounter Details Date Type Department Care Team (Late st Contact Info) Description 02/15/2018 Results Only [facility] [phone] Harry Ibrahim MD [address] [place] [phone] Social History Tobacco Use Types Packs/Day Years Used Date Smoking Tobacco: Never Assessed Sex and Gender Information Value Date Recorded Sex Assigned at Female 02/02/2024 16:21 EDT Gender Identity Female 08/08/2019 16:13 EST Sexual Orientation Not on file documented as of this encounter Plan of Treatment Upcoming Encounters Date Type Department Care Team (Late st Contact Info) Description 02/07/2025 11:15 EDT Office Visit [facility] [address] [place], [place] [phone] Yazan Hawk MD 130 [facility] [address] [place] [address] documented as of this encounter Procedures Procedure Name Priority Date/Time Associated Diagnosis Comments CYTOPATHOLOGY Routine 02/15/2018 0:00 EDT documented in this encounter Results * CYTOPATHOLOGY (02/15/2018 0:00 EDT) Pathology Report: CYTOPATHOLOGY REPORT Reports generated via electronic interface contain original data; however they are lacking the format of the original report. Caution should be taken when reading/interpret ing unformatted reports. Name: ? TALITA VELASCO ? Accession #: ? [id number] : ? 1935 (Age: 83) ??F ?Collect [...] technique. ? . ? End of Report [facility] 02/15/2018 02/17/2018 8:5 9 EDT Harry Ibrhaim MD PATHOLOGY ORDERABLES [facility] [address] [place] [address] documented in this encounter Visit Diagnoses Not on filedocumented in this encounter Care Teams Trust Manager Assistant Relationship Specialty Start Date End Date Unknown, Provider, PCP - General 09/02/16 02/17/18 documented as of this encounter
--- OUTSIDE RECORDS SUMMARY | 2024-07-08 14:57 | XMS_ITS | Encounter Summary ---
Author Organization [facility] Address [address] [place] [address] Care Team Providers Care Aerospace Stress Engineer Name Role Phone Uyen Gerard MD Primary Care Provider [phone] Yazan Hawk MD Unavailable [phone] Reason for Visit * Reason Comments Other Encounter Details Date Type Department Care Team (Late st Contact Info) Description 10/02/2020 [facility] [address] [place] [address] Yazan Hawk MD 130 [facility] [address] [place] [address] Other Social History Tobacco Use [...] Info) Description 02/07/2025 11:15 EDT Office Visit [facility] [address] [place] [address] Yazan Hawk MD [address] [place] [address] documented as of this encounter Visit Diagnoses Not on filedocumented in this encounter Discontinued Medications Medication Sig Discontinue Reason Start Date End Da te flecainide (TAMBOCOR) 50 mg tablet Take 1 Tab by mouth 2 times daily. 03/29/2020 10/02/2020 documented as of this encounter Care Teams Aerospace Stress Engineer Relationship Specialty Start Date End Date Uyen Gerard MD [address] [place] [phone] PCP - General 02/18/18 Yazan Hawk MD [address] [place] [address] Cardiovascular Disease 08/12/21 documented as of this encounter
--- OUTSIDE RECORDS SUMMARY | 2024-07-08 14:57 | XMS_ITS | Encounter Summary ---
Author Organization [facility] [place] [address] Phone Care Team Providers Care Associate Theatre Professor Name Role Phone Unavailable Primary Care Provider Unavailabl e Encounter Details Date Type Department Care Team (Late st Contact Info) Description 03/09/2019 [facility] Oncology and Hematology [address] [place] [phone] Social History Tobacco Use Types Packs/Day Years [...] Sorenson MD - 03/09/2019 11:10 AM EDT [facility] Hematology / Oncology TALITA VELASCO was [...] [place]- details requested; No [...] a wonderful cruise in [place] to [place] [facility] in [facility]; She went to to [facility] in 2014. Previously she had a left ankle fracture which needed internal fixation in July 2013 while traveling from [place] to [place]; She was previously seen by Dr. 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 She now has a primary care and pulmonary physician at [place], [place] . 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 Signed by: Leonashashi JOHNSON, March 09, 2019 11:17 AM Physical [...] & Recommendations: Problem #1: RENAL CELL CANCER ([id number]) Complete Medication List: IMITREX 50 MG ORAL [...] Please provide one pair of thigh-high compression yxqzgcelx-03-81 mm mercury VITAMIN C CAPSULE (ASCORBIC ACID CAPS) 1000u once daily ELIQUIS 5 MG ORAL TABLET (APIXABAN) take 1 tab twice a day; Route: ORAL TRELEGY ELLIPTA AEROSOL POWDER BREATH ACTIVATED (HLGOCGPGBII-DJBNMXVPQ-BMAZTZ AEPB) once a day LOSARTAN POTASSIUM 50 [...] have been stable since 2004. Followup with wrecking supervisor; She is aware that she can call me with any questions regarding kidney cancer or new symptoms. The patient has moved to [place], I again suggested that she switch her oncologic care to the [facility].She will think about [...] receives all her primary care in [place]-primary care issues like screening, vaccinationand health maintenance issues are deferred to her PCP; Copy to: PCP: Uyen Gerard MD ] sent to above indicated cc'd provider(s) documented in this encounter Plan of Treatment Upcoming Encounters Date Type Department Care Team (Late st Contact Info) Description 09/21/2024 11:00 AM EST [facility] [address] [place] [address] Gladys England MD [address] [place] [address] documented as of this encounter Visit Diagnoses Not on filedocumented in this encounter
--- OUTSIDE RECORDS SUMMARY | 2024-07-08 14:57 | XMS_ITS | Encounter Summary ---
Author Organization [facility] Address [address] [place] [phone] Phone Care Team Providers Care Lead Informatica Developer Name Role Phone Uyen Gerard MD Primary Care Provider [phone] Reason for Visit * Reason Comments Follow-up Evaluation For Glaucoma Encounter Details Date Type Department Care Team (Latest Contact Info) Description 09/03/2022 11:00 AM EST Eye [facility] Visit [facility] 17 [facility] 104 [place] [address] Gladys England MD [address] [place] [address] Pseudoexfoliative glaucoma, both eyes, moderate stage (Primary [...] strained. Feels she may to visit her Illuminating Engineer. Latanoprost franco when the bottle is almost empty. Compliant with Alphagan and Latanoprost. 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
--- OUTSIDE RECORDS SUMMARY | 2024-07-08 14:57 | XMS_ITS | Encounter Summary ---
Author Organization [facility] Address [address] [place] [address] Care Team Providers Care Industrial Sweeper Cleaner Name Role Phone Uyen Gerard MD Primary Care Provider [phone] Reason for Visit * Reason Onset Date Comments Atrial Fibrillation 08/07/2020 recent episo dhaval of a fib Encounter Details Date Type Department Care Team (Late st Contact Info) Description 08/07/2020 Telephone [facility] [address] [place], [place] [phone] Yazan Hawk MD [address] [facility] [address] [place] [address] Atrial Fibrillation (recent episodes of [...] Office Visit [facility] [address] [place] [address] Yazan Hawk MD [address] [facility] [address] [place] [phone] documented as of this encounter Visit Diagnoses Not on filedocumented in this encounter Care Teams Industrial Sweeper Cleaner Relationship Specialty Start Date End Date Uyen Gerard MD [address] [phone] PCP - General 02/18/18 documented as of this encounter
--- OUTSIDE RECORDS SUMMARY | 2024-07-08 14:57 | XMS_ITS | Encounter Summary ---
Author Organization [facility] Address [address] [place] [address] Care Team Providers Care Carriage Dogger Name Role Phone Uyen Gerard MD Primary Care Provider [phone] Yazan Hawk MD Unavailable [phone] Encounter Details Date Type Department Care Team (Late st Contact Info) Description 08/06/2020 Lab Requisition [facility] Pathology & Laboratory Medicine - [facility] [address] [place] [address] Outr Resulting Lab, Provider Social History Tobacco [...] Info) Description 02/07/2025 11:15 EDT Office Visit [facility] [address] [place] [address] Yazan Hawk MD [address] [facility] [address] [place] [address] documented as of this encounter Procedures Procedure Name Priority Date/Time Associated Diagnosis Comments ZZCOVID-19 TEST [facility] PCR Today 08/06/2020 9:46 EST COVID-19 TESTING Routine 08/06/2020 9:46 EST documented in this encounter Results * COVID-19 TEST [facility] PCR (08/06/2020 9:46 EST) Swab ENTIRE NASOPHARYNX / Unknown 08/06/2020 9:46 EST 08/06/2020 15:57 EST Provider Outr Resulting Lab MICROBIOLOGY - GENERAL ORDERABLES Performing Organization Address City/State/[facility] Co de Phone Number [facility] [address] [place] [phone] * COVID-19 TESTING (08/06/2020 9:46 EST) COVID-19 rt-PCR Result Negative Negative 08/07/2020 16:43 EST [facility] Comment: Negative results do not preclude 2019-nCoV infection and should not be used as the sole basis for treatment or other patient management decisions. Negative results must be combined with clinical observations, patient history, and epidemiological information. This test was developed and its performance characteristics determined by [facility]. It has not been cleared or [...] defined by the FDA Performed on the [employer] Flex. Performing Lab [facility] 08/07/2020 16:43 EST [facility] Swab 08/06/2020 9:46 EST 08/06/2020 15:57 EST Provider Outr Resulting Lab MICROBIOLOGY - GENERAL ORDERABLES [facility] [address] [place] [address] documented in this encounter Visit Diagnoses Not on filedocumented in this encounter Care Teams Carriage Dogger Relationship Specialty Start Date End Date Uyen Gerard MD [address] [place] [phone] PCP - General 02/18/18 Yazan Hawk MD [address] [place] [address] [address] [place] [address] Cardiovascular Disease 08/12/21 documented as of this encounter
--- OUTSIDE RECORDS SUMMARY | 2024-07-08 14:57 | XMS_ITS | Encounter Summary ---
Author Organization [facility] [place] [address] Phone Care Team Providers Care Iron Pellet Tester Name Role Phone Unavailable Primary Care Provider Unavailabl e Encounter Details Date Type Department Care Team (Late st Contact Info) Description 03/03/2018 [facility]cology and Hematology [address] [place] [phone] Social History Tobacco Use Types Packs/Day Years [...] Sorenson MD - 03/03/2018 12:18 PM EDT [facility] Hematology / [...] a wonderful cruise in [place] to the [facility] in 2016; She went to to [facility] in 2014. Previously she had a left ankle fracture which needed internal fixation in July 2013 while traveling from [place] to [place]; She was previously seen by Dr. 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 She now has a primary care and pulmonary physician at [place], [place] . 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 [place]; [place] lived [place] [...] Please provide one pair of thigh-high compression amdzyborf-50-43 mm mercury LOSARTAN POTASSIUM 25 MG ORAL TABLET (LOSARTAN POTASSIUM) take 2 tab daily VITAMIN C CAPSULE (ASCORBIC ACID CAPS) 1000u once daily ELIQUIS 5 MG ORAL TABLET (APIXABAN) take 1 tab twice a day LOPRESSOR HCT 50-25 MG ORAL TABLET (METOPROLOL-HYDROCHLOROTHIAZIDE) take 3 tabs daily TRELEGY ELLIPTA AEROSOL POWDER BREATH ACTIVATED ([id number]-[id number] AEPB) once a day Vital Signs: Patient [...] Recent Labs: YES Where & When: 02/15/18 [place] Need any Prescription Refills Today?: no The [...] Please provide one pair of thigh-high compression qthckknyj-47-53 mm mercury LOSARTAN POTASSIUM 25 MG ORAL TABLET (LOSARTAN POTASSIUM) take 2 tab daily VITAMIN C CAPSULE (ASCORBIC ACID CAPS) 1000u once daily ELIQUIS 5 MG ORAL TABLET (APIXABAN) take 1 tab twice a day LOPRESSOR HCT 50-25 MG ORAL TABLET (METOPROLOL-HYDROCHLOROTHIAZIDE) take 3 tabs daily TRELEGY ELLIPTA AEROSOL POWDER BREATH ACTIVATED ([id number]-PWNVIE AEPB) once a day Plan: Renal cancer [...] been stable since 2004. Followup with supervisor graphite; She is aware that she can call me with any questions regarding kidney cancer or new symptoms. The patient is moving to [place], I again suggested that she switch her oncologic care to the [facility] [place] [facility].She will [...] 11:00 AM EST Eye Care Visit [facility] [place] [address] [facility] [address] [place] [address] Gladys England MD [facility] [place] [address] documented as of this encounter Visit Diagnoses Not on filedocumented in this encounter
[2024-07-08 18:15] LABS: Hemoglobin A1C 6.1 % (<5.7)
== END 2024-07-08 14:43 | disposition home or self-care (01) ==
LOC: NCHCN 14:42
PROVIDERS: PCP Family Medicine; Visit Provider Family Medicine
DX: R73.03 Prediabetes (principal)
CPT/HCPCS: 83036

== ENCOUNTER 2025-02-13 13:25 | Outpatient (CLI) | payer MEDICARE, OTHER, SELFPAY ==
[2025-02-13 12:30] LABS: Anion Gap 3.8 mmol/L (3-11); BUN 37 mg/dL (7-18); CO2 31.2 mmol/L (21.0-32.0); CREATININE 1.6 mg/dL (0.55-1.02); Calcium 9.1 mg/dL (8.5-10.1); Chloride 98 mmol/L (98-107); Estimated GFR 30.83 (mL/min/1.73m2); Glucose 92 mg/dL (74-106); Potassium 4.4 mmol/L (3.5-5.1); Sodium 133 mmol/L (136-145)
== END 2025-02-13 13:26 | disposition home or self-care (01) ==
LOC: LBO 13:27
PROVIDERS: PCP Family Medicine; Visit Provider Internal Medicine Nephrology
DX: E87.1 Hypo-osmolality and hyponatremia (principal)
CPT/HCPCS: 36415; 80048

== ENCOUNTER 2025-04-14 15:07 | Outpatient (CLI) | payer MEDICARE, OTHER, SELFPAY ==
[2025-04-14 13:06] LABS: Anion Gap 3.9 mmol/L (3-11); BUN 27 mg/dL (7-18); CO2 32.1 mmol/L (21.0-32.0); Calcium 8.8 mg/dL (8.5-10.1); Chloride 97 mmol/L (98-107); Estimated GFR 39.55 (mL/min/1.73m2); Glucose 77 mg/dL (74-106); Potassium 4.3 mmol/L (3.5-5.1); Sodium 133 mmol/L (136-145)
== END 2025-04-14 15:08 | disposition home or self-care (01) ==
LOC: LBO 15:07
PROVIDERS: PCP Family Medicine; Visit Provider Internal Medicine Nephrology
DX: E87.1 Hypo-osmolality and hyponatremia (principal); N18.30 Chronic kidney disease, stage 3 unspecified
CPT/HCPCS: 36415; 80048